=== PATIENT | female | born 1950 | race Caucasian/White ===

== ENCOUNTER 2019-05-04 14:36 | Inpatient (IN) | payer MEDICARE, OTHER ==
[~2019-05-04] VITALS: Ht 167 cm; Wt 127.5 kg
[2019-05-04] VITALS (8 sets, daily range): BP systolic 96–133; BP diastolic 55–108
--- NOTE | 2019-05-04 14:45 | NUR ---
Initial O2 sat via 4L home oxygen 53%. Pt noted to be pale with labored breathing. Pt reports to wear 3L O2 via NC @ all times and 4L via NC upon exertion. Pt denies recent fever or chills.
[2019-05-04] MEDS ORDERED: FUROSEMIDE 40 MG/4 ML INJ (LASIX) IV STA (15:01)
[2019-05-04] MEDS ORDERED: IPRA3AMP31 NEB (15:07)
[2019-05-04] MEDS ORDERED: SENN-233 PO (15:07)
[2019-05-04] MEDS ORDERED: VERA80TA2 PO (15:07)
[2019-05-04] MEDS ORDERED: FURO-124 PO (15:07)
[2019-05-04] MEDS ORDERED: CALC500T64 PO (15:07)
[2019-05-04] MEDS ORDERED: HYDR-3063 PO (15:07)
[2019-05-04] MEDS ORDERED: NYST1POW22 TOP (15:07)
[2019-05-04] MEDS ORDERED: FLUT25PO12 MC (15:07)
[2019-05-04] MEDS ORDERED: ACET325T38 PO (15:07)
[2019-05-04] MEDS ORDERED: ASPI-586 PO (15:07)
[2019-05-04] MEDS ORDERED: UMEC1BLS IH (15:07)
[2019-05-04] MEDS ORDERED: LOPE2CAP PO (15:07)
[2019-05-04 15:13] LABS: BASOPHILS % (AUTO) 0 % (0-10); EOSINOPHILS # (AUTO) 0.1 10^3/uL (0.0-0.3); EOSINOPHILS % (AUTO) 1 % (0-10); HEMATOCRIT 39 % (35-52); HEMOGLOBIN 10.9 G/DL (11.5-16.0); LYMPHOCYTES % (AUTO) 10 % (12-44); MEAN CORPUSCULAR HEMOGLOBIN 28 PG (25-34); MEAN CORPUSCULAR HGB CONC 28 G/DL (32-36); MEAN CORPUSCULAR VOLUME 99 FL (80-99); MEAN PLATELET VOLUME 9.7 FL (7.4-10.4); MONOCYTES # (AUTO) 0.7 X 10^3 (0.0-1.0); MONOCYTES % (AUTO) 7 % (0-12); NEUTROPHILS # (AUTO) 8.1 X 10^3 (1.8-7.8); NEUTROPHILS % (AUTO) 82 % (42-75); PLATELET COUNT 142 10^3/uL (130-400); RED CELL DISTRIBUTION WIDTH 15.8 % (10.0-14.5); WHITE BLOOD COUNT 9.8 10^3/uL (4.3-11.0)
[2019-05-04 15:14] LABS: BILIRUBIN,URINE NEGATIVE (NEGATIVE); CLARITY,URINE CLEAR; COLOR,URINE YELLOW; GLUCOSE, URINE (UA) NEGATIVE (NEGATIVE); KETONES,URINE NEGATIVE (NEGATIVE); LEUKOCYTE ESTERASE ,URINE NEGATIVE (NEGATIVE); NITRITE,URINE NEGATIVE (NEGATIVE); PROTEIN,URINE TRACE (NEGATIVE)
[2019-05-04 15:26] LABS: ALANINE AMINOTRANSFERASE 18 U/L (0-55); ALBUMIN 3.8 GM/DL (3.2-4.5); ALKALINE PHOSPHATASE 73 U/L (40-136); BILIRUBIN,TOTAL 0.4 MG/DL (0.1-1.0); BUN/CREATININE RATIO 29; CALCIUM 8.4 MG/DL (8.5-10.1); CARBON DIOXIDE 38 MMOL/L (21-32); CHLORIDE 98 MMOL/L (98-107); CREATININE SERUM 0.66 MG/DL (0.60-1.30); GFR ESTIMATED > 60; GLUCOSE 126 MG/DL (70-105); MAGNESIUM 1.9 MG/DL (1.6-2.4); POTASSIUM 4.7 MMOL/L (3.6-5.0); SODIUM 143 MMOL/L (135-145)
[2019-05-04 15:38] LABS: BACTERIA,URINE TRACE /HPF; HYALINE CASTS, URINE 0-2 /LPF; RBC,URINE 0-2 /HPF; WBC,URINE 0-2 /HPF
--- NOTE | 2019-05-04 15:56 | ED Respiratory ---
General Chief Complaint: Respiratory Problems Stated Complaint: FLUID BUILD UP IN CHEST Nursing Triage Note: PT PRESENTS TO ED WITH COMPLAINTS OF SOA X 1 WEEK. WORSE RECENTLY. PT ALSO REPORTS SWELLING IN BOTH LEGS. UPON ARRIVAL TO ED PT 02 SAT ON HOME 02 AT 3L IS 53%. Source: patient, family Exam Limitations: no limitations History of Present Illness Date Seen by Provider: May 04, 2019 Time Seen by Provider: 14:52 Initial Comments Here with report of significant shortness of air that has worsened over the last week and certainly worse today. Reports that she's had significant increase in swelling in both legs. Initial O2 sat on arrival was 53% on her 3 L at home. She was dusky and ill-appearing at the time but answering questions. Placed on high flow O2 which helped. She was ultimately revealed to answer questions and states that she's had this problem frequently with last hospitalization over [facility]. She is moved down here with her daughter. Apparently on the last hospitalization, they attempted to do pacemaker and/or defibrillator that the patient wasn't able to tolerate the procedure. Daughter states that she had heart stoppage twice whether or trying to place it so they stopped. Initially the thought was going to be for hospice but she ended up in rehabilitation for a month and did better and then ultimately went to her daughter's house. She's been there for a few days. Denies fevers but has chills. She has had cough for about a week. Timing/Duration: getting worse, changing over time Severity: severe Prior Episodes/Possible Cause: frequent episodes Modifying Factors: Worse With Activity; Improves With Oxygen, Improves With Rest Associated Symptoms: No chest pain/soreness; cough; No nasal congestion; shortness of breath; No sinus infection Allergies and Home Medications Allergies Coded Allergies: bee venom protein (honey bee) (Verified Allergy, Unknown, 05/04/19) Home Medications Calcium Carbonate 500 Mg Tablet, 750 MG PO BID, (Reported) Hydrocodone/Acetaminophen 1 Each Tablet, 1 EACH PO Q4H PRN for PAIN-MODERATE, (Reported) Ipratropium/Albuterol Sulfate 3 Ml Ampul.neb, 3 ML IH Q4H PRN for SHORTNESS OF BREATH, (Reported) Verapamil HCl 80 Mg Tablet, 80 MG PO TID, (Reported) Patient Home Medication List Home Medication List Reviewed: Yes Review of Systems Review of Systems Constitutional: see HPI; No chills, No fever EENTM: no symptoms reported Respiratory: see HPI, dyspnea on exertion, orthopnea, short of breath Cardiovascular: No chest pain; edema Gastrointestinal: No abdominal pain, No nausea, No vomiting Genitourinary: decreased output; No dysuria Musculoskeletal: No back pain, No muscle pain Skin: no symptoms reported Psychiatric/Neurological: Denies Headache; Weakness Hematologic/Lymphatic: No Symptoms Reported All Other Systems Reviewed Negative Unless Noted: Yes Past Qijfuoh-Qgbsfp-Ucxiug Hx Past Med/Social Hx: Reviewed Nursing Past Med/Soc Hx Patient Social History Alcohol Use: Denies Use Recreational Drug Use: No Smoking Status: Former Smoker Former Smoker, Quit: May 31, 2007 Recent Foreign Travel: No Contact w/Someone Who Travel: No Recent Infectious Disease Expo: No Recent Hopitalizations: Yes (hospitalized at [facility]) Seasonal Allergies Seasonal Allergies: No Past Medical History Surgeries: Yes (l/r tkr) Orthopedic Respiratory: Yes COPD Cardiac: Yes (CHF) Atrial Fibrillation, Chronic Edema/Swelling, Hypertension Genitourinary: No Gastrointestinal: Yes Gastroesophageal Reflux, Chronic Constipation, Chronic Diarrhea Endocrine: No Cancer: No Psychosocial: No Integumentary: No Family Medical History Reviewed Nursing Family Hx No Pertinent Family Hx Physical Exam Vital Signs - First Documented 05/04/19 14:48 Temp 37.1 Pulse 95 Resp 16 B/P (MAP) 135/81 (99) Pulse Ox 100 O2 Delivery Non Rebreather O2 Flow Rate 15.00 Capillary Refill : Less Than 3 Seconds Height: '" Weight: lbs. oz. kg; 48.00 BMI Method: General Appearance: WD/WN, no apparent distress, obese HEENT: PERRL/EOMI, pharynx normal Neck: full range of motion, supple Respiratory: no accessory muscle use, decreased breath sounds Cardiovascular: regular rate, rhythm, no murmur Gastrointestinal: non tender, soft Extremities: pedal edema (4+ edema to the level of the upper thighs) Neurologic/Psychiatric: alert, oriented x 3 Skin: normal color, warm/dry Focused Exam Lactate Level 05/04/19 14:50: Lactic Acid Level 0.86 Lactic Acid Level Laboratory Tests Test 05/04/19 14:50 Lactic Acid Level 0.86 MMOL/L (0.50-2.00) Progress/Results/Core Measures Suspected Sepsis Recent Fever Within 48 Hours: No Infection Criteria Present: None New/Unexplained Altered Menta: No Sepsis Screen: No Definite Risk SIRS Temperature: Pulse: 95 Respiratory Rate: 16 Laboratory Tests 05/04/19 14:50: White Blood Count 9.8 Blood Pressure 135 /81 Mean: 99 05/04/19 14:50: Lactic Acid Level 0.86 Laboratory Tests 05/04/19 14:50: Creatinine 0.66, Platelet Count 142, Total Bilirubin 0.4 Results/Orders Lab Results Laboratory Tests Test 05/04/19 14:50 05/04/19 15:03 Range/Units White Blood Count 9.8 4.3-11.0 10^3/uL Red Blood Count 3.93 L 4.35-5.85 10^6/uL Hemoglobin 10.9 L 11.5-16.0 G/DL Hematocrit 39 35-52 % Mean Corpuscular Volume 99 80-99 FL Mean Corpuscular Hemoglobin 28 25-34 PG Mean Corpuscular Hemoglobin Concent 28 L 32-36 G/DL Red Cell Distribution Width 15.8 H 10.0-14.5 % Platelet Count 142 130-400 10^3/uL Mean Platelet Volume 9.7 7.4-10.4 FL Neutrophils (%) (Auto) 82 H 42-75 % Lymphocytes (%) (Auto) 10 L 12-44 % Monocytes (%) (Auto) 7 0-12 % Eosinophils (%) (Auto) 1 0-10 % Basophils (%) (Auto) 0 0-10 % Neutrophils # (Auto) 8.1 H 1.8-7.8 X 10^3 Lymphocytes # (Auto) 1.0 1.0-4.0 X 10^3 Monocytes # (Auto) 0.7 0.0-1.0 X 10^3 Eosinophils # (Auto) 0.1 0.0-0.3 10^3/uL Basophils # (Auto) 0.0 0.0-0.1 10^3/uL Sodium Level 143 135-145 MMOL/L Potassium Level 4.7 3.6-5.0 MMOL/L Chloride Level 98 98-107 MMOL/L Carbon Dioxide Level 38 H 21-32 MMOL/L Anion Gap 7 5-14 MMOL/L Blood Urea Nitrogen 19 H 7-18 MG/DL Creatinine 0.66 0.60-1.30 MG/DL Estimat Glomerular Filtration Rate > 60 BUN/Creatinine Ratio 29 Glucose Level 126 H 70-105 MG/DL Lactic Acid Level 0.86 0.50-2.00 MMOL/L Calcium Level 8.4 L 8.5-10.1 MG/DL Corrected Calcium 8.6 8.5-10.1 MG/DL Magnesium Level 1.9 1.6-2.4 MG/DL Total Bilirubin 0.4 0.1-1.0 MG/DL Aspartate Amino Transf (AST/SGOT) 15 5-34 U/L Alanine Aminotransferase (ALT/SGPT) 18 0-55 U/L Alkaline Phosphatase 73 40-136 U/L Troponin I 0.034 H <0.028 NG/ML B-Type Natriuretic Peptide 574.4 H <100.0 PG/ML Total Protein 6.0 L 6.4-8.2 GM/DL Albumin 3.8 3.2-4.5 GM/DL Urine Color YELLOW Urine Clarity CLEAR Urine pH 7.0 5-9 Urine Specific [place] 1.020 1.016-1.022 Urine Protein TRACE NEGATIVE Urine Glucose (UA) NEGATIVE NEGATIVE Urine Ketones NEGATIVE NEGATIVE Urine Nitrite NEGATIVE NEGATIVE Urine Bilirubin NEGATIVE NEGATIVE Urine Urobilinogen 0.2 < = 1.0 MG/DL Urine Leukocyte Esterase NEGATIVE NEGATIVE Urine RBC (Auto) NEGATIVE NEGATIVE Urine RBC 0-2 /HPF Urine WBC 0-2 /HPF Urine Crystals NONE /LPF Urine Bacteria TRACE /HPF Urine Casts PRESENT /LPF Urine Hyaline Casts 0-2 H /LPF Urine Mucus MODERATE H /LPF Urine Culture Indicated NO My Orders Orders - ARI CAMPBELL MD BNP (05/04/19 14:59) Cbc With Automated Diff (05/04/19 14:59) Comprehensive Metabolic Panel (05/04/19 14:59) Lactic Acid Analyzer (05/04/19 14:59) Magnesium (05/04/19 14:59) Ua Culture If Indicated (05/04/19 14:59) Blood Culture (05/04/19 14:59) Troponin I (05/04/19 14:59) Chest 1 View, Ap/Pa Only (05/04/19 14:59) Ekg Tracing (05/04/19 14:59) Catheter(Urinary) Insert & Ass 03,15 (05/04/19 14:59) O2 (05/04/19 14:59) Monitor-Rhythm Ecg Trace Only (05/04/19 14:59) Furosemide Injection (Lasix Injection) (05/04/19 15:01) Vital Signs/I&O 05/04/19 05/04/19 05/04/19 14:48 14:50 14:58 Temp 37.1 Pulse 95 Resp 16 B/P (MAP) 135/81 (99) Pulse Ox 100 95 100 O2 Delivery Non Rebreather Nasal Cannula Non Rebreather O2 Flow Rate 15.00 5.00 15.00 Capillary Refill : Less Than 3 Seconds Blood Pressure Mean: 99 POS Progress Note : Progress Note Seen and evaluated. IV, labs, UA, EKG and chest x-ray ordered. Lasix 40 mg IV. Nova catheter inserted as the patient is unable to get up without significant respiratory distress. Initiated on high flow O2 initially and then was able to decrease that to 5 L via nasal cannula as long as the patient wasn't talking much. O2 saturations in the mid to low 90s. Blood cultures and lactic acid ordered. Monitor patient. 1555: Doing better over all. 1620: I discussed the case with Dr. Love and have consulted Dr. Maldonado. Dr. Love accepts patient for admission, inpatient status. Dr. Maldonado will see in consult. I have ordered records were questionable with the [facility]. We will continue Lasix twice a day. Due to patient's history of progressive and worsening heart failure and previous conversations regarding hospice, palliative care consult will be placed regarding goals of care. This was discussed with Dr. Love who agrees. Patient family and agreement with plan. Family and patient now reports that she is supposed to be on BiPAP at night at 18/8 with a respiratory rate of 14 but they have been unable to get the machine through the home health from [facility]. Dr. Lobo has apparently been in contact with them as well and has refaxed paperwork. We will go ahead and add order for BiPAP at settings at nighttime and while sleeping and I think this will help her significantly as well. Family appreciative. ECG Initial ECG Impression Date: May 04, 2019 Initial ECG Impression Time: 14:51 Initial ECG Rate: 79 Comment Ectopic atrial rhythm. No evidence of ST elevation VT. Normal axis. No previous available for comparison. Interpreted by me. Departure Impression Primary Impression: Acute heart failure Qualified Codes: I50.9 - Heart failure, unspecified Additional Impression: Volume overload Qualified Codes: E87.70 - Fluid overload, unspecified Disposition: 09 ADMITTED INPATIENT Condition: Stable Admissions Decision to Admit Reason: Admit from ER (General) Decision to Admit/Date: May 04, 2019 Time/Decision to Admit Time: 15:55 ARI CAMPBELL MD May 04, 2019 15:56 POS
--- NOTE | 2019-05-04 15:57 | Diagnostic Imaging Report ---
INDICATION: Dyspnea. Upright portable AP view of the chest is obtained. There is no previous study for comparison. There is generalized cardiomegaly and pulmonary venous congestion. There is air trapping in the upper lobes. Prominent interstitial markings are seen in the lung bases with blunting of the costophrenic sulci. IMPRESSION: Without previous study for comparison, findings are suggestive of background COPD with superimposed congestive heart failure. Clinical correlation and short-term radiographic followup would be useful. Dictated by: Dictated on workstation # [id number]
--- NOTE | 2019-05-04 17:15 | NUR ---
REC'D PER CART FROM ER. ALERT AND ORIENTED, DUSKY. O2 ON @ 5L N/C AND SATS 78-83%. ENCOURAGED TO DEEP BREATHE AND SATS 90-91%. DR. DAS AT BEDSIDE. ORDERS REC'D TO TRANSER TO ICU. AWAITING BED. RELEASE SIGNED FOR RELEASE OF MEDICAL RECORDS.
--- NOTE | 2019-05-04 17:44 | Consultation-Cardiology ---
HPI-Cardiology Cardiology Consultation Date of Consultation 05/04/19 Date of Admission Time Seen by Provider: 17:38 Indication: Shortness of breath HPI 68-year-old lady with history of congestive heart failure, has a vague history that during her hospitalization in [facility] she was scheduled for pacemaker/ICD implant and the procedure was canceled due to her becoming unstable with sedation, no attempt for the procedure was made. She was discharged home, was doing well, improving slowly, started to have increasing shortness of breath and pedal edema and weakness. No palpitation. No syncope or near syncopal episodes. No claudications. Has underlying COPD Home Medications & Allergies Allergies: Coded Allergies: bee venom protein (honey bee) (Verified Allergy, Unknown, 05/04/19) Home Medication List Reviewed: Yes FAZ-Rprrvr-Jofxzx Hx Patient Social History Alcohol Use: Denies Use Recreational Drug Use: No Smoking Status: Former Smoker Recent Foreign Travel: No Recent Infectious Disease Expo: No Recent Hopitalizations: Yes (hospitalized at [facility]) Past Medical History Discussed below Family Medical History Significant Family History: No Pertinent Family Hx Family Medical Hx Noncontributory Review of Systems-General Review of Systems Constitutional: see HPI; No chills, No fever EENTM: no symptoms reported Respiratory: see HPI, dyspnea on exertion, orthopnea, short of breath Cardiovascular: No chest pain; edema Gastrointestinal: No abdominal pain, No nausea, No vomiting Genitourinary: see HPI, decreased output; No dysuria Musculoskeletal: see HPI; No back pain, No muscle pain Skin: no symptoms reported, see HPI Psychiatric/Neurological: See HPI; Denies Headache; Weakness All Other Systems Reviewed Negative Unless Noted: Yes Reviewed Test Results Reviewed Test Results Lab Laboratory Tests Test 05/04/19 14:50 05/04/19 15:03 Range/Units White Blood Count 9.8 4.3-11.0 10^3/uL Red Blood Count 3.93 L 4.35-5.85 10^6/uL Hemoglobin 10.9 L 11.5-16.0 G/DL Hematocrit 39 35-52 % Mean Corpuscular Volume 99 80-99 FL Mean Corpuscular Hemoglobin 28 25-34 PG Mean Corpuscular Hemoglobin Concent 28 L 32-36 G/DL Red Cell Distribution Width 15.8 H 10.0-14.5 % Platelet Count 142 130-400 10^3/uL Mean Platelet Volume 9.7 7.4-10.4 FL Neutrophils (%) (Auto) 82 H 42-75 % Lymphocytes (%) (Auto) 10 L 12-44 % Monocytes (%) (Auto) 7 0-12 % Eosinophils (%) (Auto) 1 0-10 % Basophils (%) (Auto) 0 0-10 % Neutrophils # (Auto) 8.1 H 1.8-7.8 X 10^3 Lymphocytes # (Auto) 1.0 1.0-4.0 X 10^3 Monocytes # (Auto) 0.7 0.0-1.0 X 10^3 Eosinophils # (Auto) 0.1 0.0-0.3 10^3/uL Basophils # (Auto) 0.0 0.0-0.1 10^3/uL Sodium Level 143 135-145 MMOL/L Potassium Level 4.7 3.6-5.0 MMOL/L Chloride Level 98 98-107 MMOL/L Carbon Dioxide Level 38 H 21-32 MMOL/L Anion Gap 7 5-14 MMOL/L Blood Urea Nitrogen 19 H 7-18 MG/DL Creatinine 0.66 0.60-1.30 MG/DL Estimat Glomerular Filtration Rate > 60 BUN/Creatinine Ratio 29 Glucose Level 126 H 70-105 MG/DL Lactic Acid Level 0.86 0.50-2.00 MMOL/L Calcium Level 8.4 L 8.5-10.1 MG/DL Corrected Calcium 8.6 8.5-10.1 MG/DL Magnesium Level 1.9 1.6-2.4 MG/DL Total Bilirubin 0.4 0.1-1.0 MG/DL Aspartate Amino Transf (AST/SGOT) 15 5-34 U/L Alanine Aminotransferase (ALT/SGPT) 18 0-55 U/L Alkaline Phosphatase 73 40-136 U/L Troponin I 0.034 H <0.028 NG/ML B-Type Natriuretic Peptide 574.4 H <100.0 PG/ML Total Protein 6.0 L 6.4-8.2 GM/DL Albumin 3.8 3.2-4.5 GM/DL Urine Color YELLOW Urine Clarity CLEAR Urine pH 7.0 5-9 Urine Specific [place] 1.020 1.016-1.022 Urine Protein TRACE NEGATIVE Urine Glucose (UA) NEGATIVE NEGATIVE Urine Ketones NEGATIVE NEGATIVE Urine Nitrite NEGATIVE NEGATIVE Urine Bilirubin NEGATIVE NEGATIVE Urine Urobilinogen 0.2 < = 1.0 MG/DL Urine Leukocyte Esterase NEGATIVE NEGATIVE Urine RBC (Auto) NEGATIVE NEGATIVE Urine RBC 0-2 /HPF Urine WBC 0-2 /HPF Urine Crystals NONE /LPF Urine Bacteria TRACE /HPF Urine Casts PRESENT /LPF Urine Hyaline Casts 0-2 H /LPF Urine Mucus MODERATE H /LPF Urine Culture Indicated NO Physical Exam Physical Exam Vital Signs Vital Signs - First Documented 05/04/19 14:48 Temp 37.1 Pulse 95 Resp 16 B/P (MAP) 135/81 (99) Pulse Ox 100 O2 Delivery Non Rebreather O2 Flow Rate 15.00 Capillary Refill : Less Than 3 Seconds Height, Weight, BMI Height: '" Weight: lbs. oz. kg; 48.00 BMI Method: General Appearance: No Apparent Distress, WD/WN, Mild Distress Eyes: Bilateral Eye Normal Inspection, Bilateral Eye PERRL, Bilateral Eye EOMI HEENT: PERRL/EOMI, TMs Normal, Normal ENT Inspection, Pharynx Normal, Moist Mucous Membranes Neck: Full Range of Motion, Normal Inspection, Non Tender, Supple, Carotid Bruit Respiratory: Chest Non Tender, Normal Breath Sounds, No Accessory Muscle Use, No Respiratory Distress Cardiovascular: No JVD, Normal Peripheral Pulses, Systolic Murmur, Gallop/S3 Gastrointestinal: Normal Bowel Sounds, No Organomegaly, No Pulsatile Mass, Non Tender, Soft Back: Normal Inspection, No CVA Tenderness, No Vertebral Tenderness Extremity: Normal Capillary Refill, Normal Inspection, Normal Range of Motion, Non Tender, No Calf Tenderness, Pedal Edema Neurologic/Psychiatric: Alert, Oriented x3, No Motor/Sensory Deficits, Normal Mood/Affect Skin: Normal Color, Warm/Dry Lymphatic: No Adenopathy A/P-Cardiology Admission Diagnosis Congestive heart failure Coronary artery disease Hypertension Hyperlipidemia Assessment/Plan Congestive heart failure, acute on chronic left ventricular systolic dysfunction, unknown etiology, had extensive workup done at [facility] last month including possible ICD attempt, reported that procedure was canceled due to patient becoming very unstable. Does not recall having a heart catheterization or a stress test. I am planning to obtain copy of her record. I will evaluate 2-D echo, start aggressive diuresis and monitor tolerance and response Shortness of breath, pulmonary edema, starting MAT protocol and diuretics and monitor tolerance and response Type II myocardial infarction, probably secondary to heart failure, mild elevation in troponin, continue to monitor trend, started on aspirin and Lovenox. I'll try to obtain copy of the records from [facility] Worsening pedal edema, generalized weakness, started on diuretics. Started low- dose Coreg and monitor COPD, oxygen dependent. Monitor Hypertension, monitor blood pressure next Hyperlipidemia, restart home medication next Morbid obesity LINDY GROVER MD May 04, 2019 17:44 POS
[2019-05-04] MEDS ORDERED: CATHETER FLUSH 10 ML SYR IV PRN (17:45)
[2019-05-04] MEDS ORDERED: ENOXAPARIN 100 MG/1 ML (LOVENOX) SYR SC SCH (17:45)
--- NOTE | 2019-05-04 18:20 | NUR ---
TO ICU PER BED WITH RT. DAUGHTER HAS GONE HOME, BUT IS AWARE OF PLANS TO TRANSFER. O2 @ 10L HI RUSTAM N/C. NO SIGNS OF RESP DISTRESS. REPORT TO JOMAR KWOK.
[2019-05-04 18:29] LABS: ABG BASE EXCESS 17.8 MMOL/L (-2.5-2.5); ABG OXYGEN SATURATION 98 % (94-100); ABG PO2 99 MMHG (79-93); ABG TCO2 47.6 MMOL/L (21.0-31.0)
[2019-05-04 18:31] LABS: ABG PCO2 89 MMHG (35-45); ABG PH 7.32 (7.37-7.43); ALLENS TEST POSITIVE; INSPIRED O2 9 L; PATIENT TEMP 36.5; VENTILATOR NO
[2019-05-04] MEDS ORDERED: RT-ALBUTEROL/IPRATROPIUM 3 ML (DUONEB) VIAL INH PRN (19:30)
[2019-05-04] MEDS: RT-ALBUTEROL/IPRATROPIUM 3 ML (DUONEB) VIAL INH SCH (21:24)
[2019-05-04] MEDS: ENOXAPARIN 300 MG/3 ML (LOVENOX) MULTI-DOSE VIAL SQ SCH (21:24)
[2019-05-04] MEDS: CARVEDILOL 3.125 MG (COREG) TABLET PO SCH (21:24)
--- NOTE | 2019-05-04 21:34 | History & Physical-Hospitalist ---
History of Present Illness HPI/Chief Complaint Chief complaint: Shortness of breath with clinical decline requiring ICU transfer History of present illness: This is a 68-year-old white female who has a history of a recent hospital stay in [place] with preparation of placing a defibrillator but could not accomplish that due to instability and questionable discharge that was recommended on hospice but patient regardless presented to the ER with shortness of breath found to have florid congestive heart failure and work-up included cardiology management but when I saw her at the bedside she appeared to be abreu ashen and pale becoming hypoxic and patient required ICU transfer just based on clinical status decompensation. Patient was found to have respiratory acidosis with hypercapnia requiring BiPAP and may ultimately require intubation. Patient appears to be extremely chronically ill and unsure of her ejection fraction but it appears to be very low with a very very poor prognosis. Source: patient Exam Limitations: clinical condition Date Seen 05/04/19 Time Seen by a Provider: 17:30 Attending Physician Alberto Lobo MD PCP Alberto Lobo MD Referring Physician Date of Admission May 04, 2019 at 16:08 Home Medications & Allergies Home Medications Reviewed patient Home Medication Reconciliation performed by pharmacy medication reconciliations satellite installation technician and/or nursing. Patients Allergies have been reviewed. Allergies Allergies Coded Allergies bee venom protein (honey bee) (Verified Allergy, Unknown, 05/04/19) Past Gicvkvn-Huzcdq-Zshwor Hx Past Med/Social Hx: Reviewed Nursing Past Med/Soc Hx, Reviewed and Corrections made Patient Social History Alcohol Use: Denies Use Recreational Drug Use: No Smoking Status: Former Smoker Former Smoker, Quit: May 31, 2007 Recent Foreign Travel: No Contact w/other who traveled: No Recent Hopitalizations: Yes (hospitalized at [facility]) Recent Infectious Disease Expo: No Immunizations Up To Date Date of Influenza Vaccine: Feb 27, 2019 Seasonal Allergies Seasonal Allergies: No Past Medical History Surgeries: Orthopedic Cardiac: Atrial Fibrillation, Chronic Edema/Swelling, Hypertension Gastrointestinal: Gastroesophageal Reflux, Chronic Constipation, Chronic Diarrhea Family History Reviewed Nursing Family Hx No Pertinent Family Hx Review of Systems Constitutional: see HPI Respiratory: dyspnea on exertion, short of breath Physical Exam Physical Exam Vital Signs Vital Signs - First Documented 05/04/19 14:48 Temp 37.1 Pulse 95 Resp 16 B/P (MAP) 135/81 (99) Pulse Ox 100 O2 Delivery Non Rebreather O2 Flow Rate 15.00 Capillary Refill : Less Than 3 Seconds Height, Weight, BMI Height: '" Weight: lbs. oz. kg; 48.00 BMI Method: General Appearance: Anxious, Chronically ill, Moderate Distress, Obese, Other (abreu, ashen, in distress) Respiratory: Crackles, Decreased Breath Sounds Cardiovascular: Tachycardia Extremity: Pedal Edema Neurologic/Psychiatric: Alert, Disoriented Results Results/Procedures Labs Laboratory Tests 05/04/19 14:50 Patient resulted labs reviewed. Assessment/Plan Admission Diagnosis Assessment: Respiratory failure Respiratory acidosis Hypercapnia CHF acute on chronic Edema/anasarca Plan: Transfer to ICU Need intubation or biPAP trial Prognosis poor Admission Status: Inpatient Order (span 2 midnights) Reason for Inpatient Admission: AECHF with ICU transfer Diagnosis/Problems Diagnosis/Problems (1) Respiratory failure (2) Hypercapnia (3) CO2 narcosis (4) Respiratory acidosis (5) Acute heart failure Status: Acute Qualifiers: Heart failure type: unspecified Qualified Codes: I50.9 - Heart failure, unspecified (6) Volume overload Status: Acute Qualifiers: Hypervolemia type: unspecified Qualified Codes: E87.70 - Fluid overload, unspecified Clinical Quality Measures DVT/VTE Risk/Contraindication: Risk Factor Score Per Nursin RFS Level Per Nursing on Admit: 4+=Very High YANET DAS DO May 04, 2019 21:34 POS
--- NOTE | 2019-05-04 23:32 | NUR ---
PATIENT HAS TAKEN OFF BIPAP MASK STATING "I AM NOT WEARING THAT THING". INFORMED PATIENT SHE NEEDED IT AND SHE STATED SHE DIDN'T CARE, EICU NOTIFIED AND SHERRI RN CAMERAD INTO ROOM. PATIENT AGREED TO PRECEDEX AND TO KEEP THE MASK ON AFTER EXPLAINING THE BENEFITS. WILL CONTINUE TO MONITOR.
[2019-05-04] MEDS ORDERED: NS (IVPB) 50 ML ONE (23:34)
[2019-05-05] VITALS (21 sets, daily range): BP systolic 77–145; BP diastolic 48–108
[2019-05-05] MEDS: DEXMEDETOMIDINE INJECTION 200 MCG in NS (IVPB) 50 ML IV SCH ×2 (00:13→22:18)
[2019-05-05] MEDS: CATHETER FLUSH 10 ML SYR IV SCH ×4 (00:13→22:16)
[2019-05-05] MEDS: RT-ALBUTEROL/IPRATROPIUM 3 ML (DUONEB) VIAL INH SCH ×6 (01:45→21:22)
[2019-05-05 03:13] LABS: ABG BASE EXCESS 17.4 MMOL/L (-2.5-2.5); ABG OXYGEN SATURATION 98 % (94-100); ABG PO2 92 MMHG (79-93); ABG TCO2 47.5 MMOL/L (21.0-31.0)
--- NOTE | 2019-05-05 03:29 | Pulmonary Consultation ---
History of Present Illness History of Present Illness Date Seen by Provider: May 05, 2019 Time Seen by Provider: 03:23 Date of Admission Reason for Visit: Shortness of breath History of Present Illness 68yo with hx of morbid obesity, COPD presented to ED secondary to worsening SOB, hypoxia. Pt had a recent hospitalization in [place]. Hospice care and ICD placement was discussed at that time per hospital notes. Pt is currently a full code. Pt is currently lethargic she is on precedex gtt secondary to her not tolerating BiPAP therapy. She is currently on BiPAP with precedex gtt. All information obtained from chart. Allergies and Home Medications Allergies Coded Allergies: bee venom protein (honey bee) (Verified Allergy, Unknown, 05/04/19) Home Medications Calcium Carbonate 500 Mg Tablet, 750 MG PO BID, (Reported) Hydrocodone/Acetaminophen 1 Each Tablet, 1 EACH PO Q4H PRN for PAIN-MODERATE, (Reported) Ipratropium/Albuterol Sulfate 3 Ml Ampul.neb, 3 ML IH Q4H PRN for SHORTNESS OF BREATH, (Reported) Verapamil HCl 80 Mg Tablet, 80 MG PO TID, (Reported) Past Dgoqmeq-Iqsnti-Kzmxng Hx Past Med/Social Hx: Reviewed Nursing Past Med/Soc Hx, Reviewed and Corrections made Patient Social History Alcohol Use: Denies Use Recreational Drug Use: No Smoking Status: Former Smoker Former Smoker, Quit: May 31, 2007 Recent Foreign Travel: No Contact w/Someone Who Travel: No Recent Infectious Disease Expo: No Recent Hopitalizations: Yes (hospitalized at [facility]) Immunizations Up To Date Date of Influenza Vaccine: Feb 27, 2019 Seasonal Allergies Seasonal Allergies: No Past Medical History Surgeries: Yes (l/r tkr) Orthopedic Respiratory: Yes COPD Cardiac: Yes (CHF) Atrial Fibrillation, Chronic Edema/Swelling, Hypertension Genitourinary: No Gastrointestinal: Yes Gastroesophageal Reflux, Chronic Constipation, Chronic Diarrhea Endocrine: No Cancer: No Psychosocial: No Integumentary: No Family Medical History Reviewed Nursing Family Hx No Pertinent Family Hx Review of Systems Time Seen by Provider: 03:55 Sepsis Event Evaluation Height, Weight, BMI Height: '" Weight: lbs. oz. kg; 48.00 BMI Method: Exam Exam Vital Signs Date Time Temp Pulse Resp B/P (MAP) Pulse Ox O2 Delivery O2 Flow Rate FiO2 05/05/19 01:46 62 16 98 60.00 05/05/19 01:00 81 22 97/60 (72) 98 NIV Bilevel 60.00 05/05/19 00:47 70 05/05/19 00:00 80 42 109/70 (83) 97 NIV Bilevel 60.00 05/04/19 23:00 76 19 107/69 (82) 95 NIV Bilevel 60.00 05/04/19 22:00 70 14 101/57 (72) 97 NIV Bilevel 60.00 05/04/19 21:24 78 18 99 60.00 05/04/19 21:00 81 31 118/67 (84) 97 NIV Bilevel 60.00 05/04/19 20:00 82 26 96/55 (69) 99 NIV Bilevel 60.00 05/04/19 20:00 36.2 05/04/19 19:40 78 99 60.00 05/04/19 19:37 NIV Bilevel 60.00 05/04/19 19:19 72 98 05/04/19 19:00 100 38 127/68 (87) 97 High Flow N/C 9.00 05/04/19 18:33 90 05/04/19 18:21 36.5 66 27 133/85 (101) 96 High Flow N/C 9.00 05/04/19 17:17 37.1 86 18 134/72 (99) 94 Nasal Cannula 5.00 05/04/19 14:58 100 Non Rebreather 15.00 05/04/19 14:50 95 Nasal Cannula 5.00 05/04/19 14:48 37.1 95 16 135/81 (99) 100 Non Rebreather 15.00 Height & Weight Height: '" Weight: lbs. oz. kg; 48.00 BMI Method: General Appearance: Anxious, Chronically ill, Moderate Distress, Obese, Other (abreu, ashen, in distress) HEENT: PERRL/EOMI, TMs Normal, Normal ENT Inspection, Pharynx Normal, Moist Mucous Membranes Neck: Full Range of Motion, Normal Inspection, Non Tender, Supple, Carotid Bruit Respiratory: Crackles, Decreased Breath Sounds Cardiovascular: Tachycardia Capillary Refill: Less Than 3 Seconds Gastrointestinal: non tender, soft Extremity: Pedal Edema Neurologic/Psychiatric: Alert, Disoriented Skin: Normal Color, Warm/Dry Lymphatic: No Adenopathy Results Lab Laboratory Tests 05/04/19 14:50 Assessment/Plan Assessment/Plan Acute on chronic respiratory failure -Noninvasive ventilation -C02 on ABG is 90 -Increase RR on BiPAP -Decrease preceded -Decrease Fi02 and repeat ABG in 1 hr. Pt may need intubation will reevaluate after next ABG in 1hr. -Start solumedrol Pulmonary edema and bilateral pleural effusions COPDAE -Start solumedrol -SVNs with duoneb Q 4 and add pulmicort BID CHFAE -Lasix -Echo pending -Cardiology following Hypotension - mild -Monitor Obesity OHS -Will benefit from home vent to mask Anemia -Monitor -Check occult stool PANKAJ VALENTINE DO May 05, 2019 03:29 POS
[2019-05-05 03:30] LABS: BASOPHILS % (AUTO) 0 % (0-10); EOSINOPHILS # (AUTO) 0.2 10^3/uL (0.0-0.3); EOSINOPHILS % (AUTO) 2 % (0-10); HEMATOCRIT 36 % (35-52); HEMOGLOBIN 9.9 G/DL (11.5-16.0); LYMPHOCYTES % (AUTO) 16 % (12-44); MEAN CORPUSCULAR HEMOGLOBIN 28 PG (25-34); MEAN CORPUSCULAR HGB CONC 27 G/DL (32-36); MEAN CORPUSCULAR VOLUME 100 FL (80-99); MEAN PLATELET VOLUME 10.2 FL (7.4-10.4); MONOCYTES # (AUTO) 0.6 X 10^3 (0.0-1.0); MONOCYTES % (AUTO) 8 % (0-12); NEUTROPHILS # (AUTO) 4.9 X 10^3 (1.8-7.8); NEUTROPHILS % (AUTO) 74 % (42-75); PLATELET COUNT 129 10^3/uL (130-400); RED CELL DISTRIBUTION WIDTH 15.9 % (10.0-14.5); WHITE BLOOD COUNT 6.7 10^3/uL (4.3-11.0)
[2019-05-05 03:35] LABS: ALLENS TEST POSITIVE; INSPIRED O2 60; PATIENT TEMP 35.8; VENTILATOR NO
[2019-05-05 03:36] LABS: ABG PCO2 90 MMHG (35-45); ABG PH 7.31 (7.37-7.43)
[2019-05-05 03:48] LABS: ALANINE AMINOTRANSFERASE 11 U/L (0-55); ALBUMIN 3.3 GM/DL (3.2-4.5); ALKALINE PHOSPHATASE 72 U/L (40-136); BILIRUBIN,TOTAL 0.4 MG/DL (0.1-1.0); BUN/CREATININE RATIO 29; CARBON DIOXIDE 38 MMOL/L (21-32); CHLORIDE 97 MMOL/L (98-107); CHOLESTEROL 110 MG/DL (< 200); CREATININE SERUM 0.65 MG/DL (0.60-1.30); GFR ESTIMATED > 60; GLUCOSE 109 MG/DL (70-105); HDL CHOLESTEROL 55 MG/DL (40-60); MAGNESIUM 1.9 MG/DL (1.6-2.4); PHOSPHORUS 4.9 MG/DL (2.3-4.7); POTASSIUM 4.4 MMOL/L (3.6-5.0); SODIUM 145 MMOL/L (135-145); TOTAL PROTEIN 5.1 GM/DL (6.4-8.2); TRIGLYCERIDES 58 MG/DL (<150); VLDL CHOLESTEROL 12 MG/DL (5-40)
--- NOTE | 2019-05-05 04:15 | NUR ---
PATIENT'S DAUGHTER HAYLIE NOTIFIED OF PATIENT CONDITION - LOW BLOOD PRESSURE, USE OF SEDATION TO KEEP BIPAP ON WELL LAB VALUES. HAYLIE REQUESTS THAT SEDATION BE TAKEN OFF PATIENT AND DISCUSS OPTIONS OF CODE STATUS, HAYLIE IS RELUCTANT TO MAKE DECISION AT THIS TIME.
[2019-05-05] MEDS ORDERED: FUROSEMIDE 40 MG/4 ML INJ (LASIX) IVP SCH ×2 (05:00→07:00)
--- NOTE | 2019-05-05 05:00 | NUR ---
PATIENT AWAKE AND REQUESTING BIPAP BE REMOVED. DISCUSSION OF CODE STATUS AND PATIENT REQUEST FULL CODE AND IS AGREEABLE TO INTUBATION IF NECESSARY. VAPOTHERM PLACED AT THIS TIME. WILL CONTINUE TO MONITOR.
[2019-05-05 05:09] LABS: ABG BASE EXCESS 17.6 MMOL/L (-2.5-2.5); ABG OXYGEN SATURATION 97 % (94-100); ABG PCO2 68 MMHG (35-45); ABG PH 7.41 (7.37-7.43); ABG PO2 71 MMHG (79-93); ABG TCO2 45.9 MMOL/L (21.0-31.0)
[2019-05-05 05:11] LABS: ALLENS TEST POSITIVE; INSPIRED O2 60%; PATIENT TEMP 35.3; VENTILATOR NO
[2019-05-05] MEDS ORDERED: RT-BUDESONIDE NEBS 0.5 MG/2ML (PULMICORT) AMP ONE (06:21)
[2019-05-05] MEDS: RT-BUDESONIDE NEBS 0.5 MG/2ML (PULMICORT) AMP INH SCH ×2 (06:56→19:07)
[2019-05-05] MEDS: POTASSIUM CL 10MEQ/50ML IVPB 50 ML IV SCH (07:28)
[2019-05-05] MEDS: KCL 20 MEQ TAB (K-DUR) PO SCH (07:28)
[2019-05-05] MEDS: MAGNESIUM 1 GM/100 ML IVPB 100 ML IV SCH (07:28)
[2019-05-05] MEDS: methylPREDNISolone 40 MG/ML (Solu-MEDROL) VIAL IV SCH ×4 (07:48→23:36)
[2019-05-05] MEDS: ENOXAPARIN 300 MG/3 ML (LOVENOX) MULTI-DOSE VIAL SQ SCH ×2 (07:48→18:02)
--- NOTE | 2019-05-05 08:12 | Diagnostic Imaging Report ---
Portable erect AP chest at 3:27. Indication: Respiratory distress. The cardiomegaly noted on the prior exam of 05/04/2019 is again evident although the heart does not seem quite as enlarged as on the prior study. The central pulmonary vasculature is also less prominent than on the previous exam. There still appears to be some atelectasis/infiltrate and perhaps fluid in the lung bases however. The mediastinum is not widened. The osseous structures are intact. Impression: The appearance of the chest has improved somewhat as the heart has decreased in size and there is less pulmonary congestion. There are still involvement of both lung bases by atelectasis/infiltrate and perhaps fluid however. A followup study would be recommended for continued evaluation. Dictated by: Dictated on workstation # [id number]
[2019-05-05] MEDS: ASPIRIN E.C. 81 MG (ECOTRIN) TAB PO SCH (08:42)
[2019-05-05] MEDS: PANTOPRAZOLE 40 MG (PROTONIX) TAB PO SCH (08:42)
[2019-05-05] MEDS ORDERED: HYDR-3816 PO (09:40)
[2019-05-05] MEDS ORDERED: CALC-870 PO (09:40)
[2019-05-05] MEDS ORDERED: ATOR10TA66 PO (09:40)
[2019-05-05] MEDS ORDERED: FLUT16SP22 NS (09:40)
--- NOTE | 2019-05-05 09:41 | Cardiology Progress Note ---
Subjective Date Seen by Provider: May 05, 2019 Time Seen by Provider: 09:38 Subjective/Events-last exam patient is laying down in bed, on Vapotherm, denied any chest pain. Review of Systems General: No Chills, No Night Sweats; Fatigue, Malaise; No Appetite, No Other HEENT: No Head Aches, No Visual Changes, No Eye Pain, No Ear Pain, No Dysphasia, No Sinus Congestion, No Post Nasal Drip, No Sore Throat, No Other Pulmonary: Dyspnea; No Cough, No Pleuritic Chest Pain, No Other Cardiovascular: Edema; No: Chest Pain, Palpitations, Orthopnea, Paroxysmal Noc. Dyspnea, Lt Headedness, Other Focused Exam Lactate Level 05/04/19 14:50: Lactic Acid Level 0.86 Objective-Cardiology Exam Last Set of Vital Signs Vital Signs 05/05/19 05/05/19 05/05/19 05/05/19 04:19 06:52 07:01 09:00 Temp 35.8 Pulse 85 Resp 22 B/P (MAP) 111/67 (82) Pulse Ox 91 O2 Delivery Vapotherm O2 Flow Rate 35.00 40.00 FiO2 40 Capillary Refill : Less Than 3 Seconds I&O Intake and Output 05/05/19 00:00 Intake Total 275 ml Output Total 300 ml Balance -25 ml Intake Oral 275 ml Output Urine Total 300 ml Daily Weight Change No General: Alert, Oriented X3, Cooperative HEENT: Atraumatic, PERRLA Neck: Supple, No JVD, No Thyromegaly Lungs: Normal Air Movement, Other (bilateral rhonchi) Heart: Regular Rate, Normal S1, Normal S2, No Murmurs Abdomen: Normal Bowel Sounds, Soft, No Tenderness, No Hepatosplenomegaly, No Masses Extremities: No Clubbing, No Cyanosis, Normal Pulses, No Tenderness/Swelling, Other (peripheral edema) Skin: No Significant Lesion, Other (erythema) Neuro: Normal Speech, Strength at 5/5 X4 Ext, Normal Tone, Sensation Intact Psych/Mental Status: Mental Status NL, Mood NL Results Lab Laboratory Tests 05/04/19 14:50 05/05/19 03:00 A/P-Cardiology Admission Diagnosis Congestive heart failure Coronary artery disease Hypertension Hyperlipidemia Assessment/Plan Congestive heart failure, acute on chronic left ventricular diastolic dysfunction, unknown etiology, had extensive workup done at [facility] last month including possible ICD attempt, reported that procedure was canceled due to patient becoming very unstable. Does not recall having a heart catheterization or a stress test. echocardiogram showed normal LV size and function, ejection fraction 60 percent. Continue to monitor Acute respiratory insufficiency, shortness of breath, pulmonary edema, responding well to diuretics, on Vapotherm COPD, acute exacerbation, on Vapotherm at this timeby Dr. Hull Type II myocardial infarction, probably secondary to heart failure, mild elevation in troponin, continue to monitor trend, started on aspirin and Lovenox. I'll try to obtain copy of the records from [facility] Peripheral edema, improving slowly Hypertension, monitor blood pressure next Hyperlipidemia, restart home medication next Morbid obesity Clinical Quality Measures DVT/VTE Risk/Contraindication: Risk Factor Score Per Nursin RFS Level Per Nursing on Admit: 4+=Very High LINDY GROVER MD May 05, 2019 09:41 POS
--- NOTE | 2019-05-05 09:59 | NUR ---
PATIENTS DAUGHTER HAS A LIST OF MEDICATIONS WITH HER. SHE STATES THIS IS UP TO DATE. THE PATIENT HAS RECENTLY RELOCATED TO [facility] AND IS NOW USING [facility]. PRIOR TO THIS THEY USES [facility] IN [place]. [facility] FILLED: 04-21-19 ANORO INHALER DAILY (PATIENT USES AT ) 04-21-19 HYDROCODONE 7.5-325MG 1 Q6H PRN 04-21-19 ATORVASTATIN 10MG DAILY #90 04-21-19 DUONEB Q6H PRN 04-21-19 PREDNISONE TAPER (SHOULD BE FINISHED) [facility] FILLED: 03-20-19 FUROSEMIDE 40MG BID #30 (WOULD BE PAST DUE BUT PATIENT HAS BEEN IN HOSPITAL) 03-09-19 HYDROCODONE 7.5-325MG #180 Q4HPRN (FILLED MORE RECENTLY AT [facility] Q6H) 03-06-19 HCTZ 12.5MG DAILY #30 (NOT ON CURRENT MED LIST PATIENT HAS NOW) PATIENT LIST ALSO HAD NYSTATIN POWDER NEEDED AND VERAPAMIL TID. DAUGHTER STATES THE VERAPAMIL IS HELD WHEN BLOOD PRESSURE IS BELOW 110, NORMALLY THE PATIENT TAKES 1 IN THE MORNING AND DOES NOT NEED TO REPEAT THE OTHER 2 DOSES. OTC MEDS: TYLENOL 325MG PRN ASPIRIN 81MG DAILY TUMS BID IMODIUM PRN SENNA S PRN FLONASE DAILY
[2019-05-05] MEDS: CARVEDILOL 3.125 MG (COREG) TABLET PO SCH ×2 (10:58→20:05)
--- NOTE | 2019-05-05 11:15 | NUR ---
Pastoral care visit.
[2019-05-05] MEDS: inSUlin ASPART (NovoLOG) 1 UNIT/0.01 ML (CHARGE PER UNIT) SQ SCH ×3 (11:50→20:07)
--- NOTE | 2019-05-05 14:23 | Progress Note - Hospitalist ---
[facility] 05/05/19 1423: Subjective HPI/CC On Admission Date Seen by Provider: May 05, 2019 Time Seen by Provider: 08:30 Chief complaint: Shortness of breath with clinical decline requiring ICU enid osorio History of present illness: This is a 68-year-old white female who has a history of a recent hospital stay in [place] with preparation of placing a defibrillator but could not accomplish that due to instability and questionable discharge that was recommended on hospice but patient regardless presented to the ER with shortness of breath found to have florid congestive heart failure and work-up included cardiology management but when I saw her at the bedside she appeared to be abreu ashen and pale becoming hypoxic and patient required ICU transfer just based on clinical status decompensation. Patient was found to have respiratory acidosis with hypercapnia requiring BiPAP and may ultimately require intubation. Patient appears to be extremely chronically ill and unsure of her ejection fraction but it appears to be very low with a very very poor prognosis. Subjective/Events-last exam Patient appeared confused about yesterday's events Patient reports that the she is uncomfortable Legs were still swollen Visitor at bedside reported the patient is breathing much better and looks much better. Review of Systems General: No Chills, No Other (fevers) HEENT: No Head Aches, No Ear Pain Pulmonary: Dyspnea, Cough Cardiovascular: Edema; No: Chest Pain, Palpitations Gastrointestinal: No: Nausea, Vomiting, Abdominal Pain Genitourinary: Other (Patient has catheter) Neurological: Numbness (In legs) Focused Exam Lactate Level 05/04/19 14:50: Lactic Acid Level 0.86 Objective Exam Vital Signs Vital Signs Date Time Temp Pulse Resp B/P (MAP) Pulse Ox O2 Delivery O2 Flow Rate FiO2 05/05/19 14:00 97 15 121/64 (83) Vapotherm 35.00 40.00 05/05/19 13:00 91 05/05/19 10:09 40 05/05/19 04:19 35.8 Capillary Refill : Less Than 3 Seconds General Appearance: Chronically ill, Obese, Other (Pursed lips while breathing. ) HEENT: PERRL/EOMI, Normal ENT Inspection Neck: Non Tender, Supple Respiratory: Chest Non Tender, Decreased Breath Sounds, Other (Increased respiratory effort. Pursed lips. Requiring oxygen) Cardiovascular: Regular Rate, Rhythm, Normal Peripheral Pulses (2/4 radial Bilaterally), Other (+3 LE edema) Gastrointestinal: Non Tender, Soft Neurologic/Psychiatric: Alert, Other (Patient appears confused about events yesterday) Results/Procedures Lab Laboratory Tests 05/04/19 14:50 05/05/19 03:00 Patient resulted labs reviewed. Assessment/Plan Assessment and Plan Assess & Plan/Chief Complaint COPD exacerbation CHF Edema Shortness of breath Continue monitoring with daily x-rays and labs Patient requiring oxygen support because of increased respiratory effort. May require intubation if O2 stats drop Clinical Quality Measures DVT/VTE Risk/Contraindication: Risk Factor Score Per Nursin RFS Level Per Nursing on Admit: 4+=Very High THELMA DAS DO 05/06/19 1001: Subjective Subjective/Events-last exam Pt had a restless night Pt appears to be extremely end stage Pt is pale and pasty and rodgers Trying to wean off Vapotherm Echocardiogram done Overall significant poor prognosis and daughter is at the bedside Review of Systems Pulmonary: Dyspnea Objective Exam General Appearance: Anxious, Chronically ill, Mild Distress, Obese Respiratory: Decreased Breath Sounds Cardiovascular: Regular Rate, Rhythm Neurologic/Psychiatric: Alert, Oriented x3, No Motor/Sensory Deficits, Normal Mood/Affect Assessment/Plan Assessment and Plan Assess & Plan/Chief Complaint ICU Appreciate cardiology Poor prognosis Diagnosis/Problems Diagnosis/Problems (1) Respiratory failure (2) CO2 narcosis (3) Hypercapnia (4) Respiratory acidosis (5) Volume overload Status: Acute Qualifiers: Qualified Codes: E87.70 - Fluid overload, unspecified (6) Acute heart failure Status: Acute Qualifiers: Qualified Codes: I50.9 - Heart failure, unspecified Supervisory-Addendum Brief Verification & Attestation Participated in pt care: history, MDM, physical Personally performed: exam, history, MDM, supervision of care Care discussed with: Medical Student Procedures: n/a Results interpretation: Verified all documentation Verification and Attestation of Medical Student E/M Service A medical student performed and documented this service in my presence. I reviewed and verified all information documented by the medical student and made modifications to such information, when appropriate. I personally performed the physical exam and medical decision making. Thelma Das, May 06, 2019,10:01 SHANICE BIRD May 05, 2019 14:23 THELMA ARRIAGA DO May 06, 2019 10:01 POS
[2019-05-05] MEDS: FUROSEMIDE 40 MG/4 ML INJ (LASIX) IVP SCH (16:43)
[2019-05-05] MEDS ORDERED: HYDROcodone/APAP 7.5 MG/325 MG (LORTAB, LORCET PLUS) TABLET PO ONE (19:58)
[2019-05-05] MEDS: HYDROcodone/APAP 7.5 MG/325 MG (LORTAB, LORCET PLUS) TABLET PO PRN (20:05)
[2019-05-06] VITALS (16 sets, daily range): BP systolic 106–139; BP diastolic 43–88
[2019-05-06] MEDS: RT-ALBUTEROL/IPRATROPIUM 3 ML (DUONEB) VIAL INH SCH ×6 (02:00→22:41)
[2019-05-06 04:01] LABS: BASOPHILS % (AUTO) 0 % (0-10); EOSINOPHILS % (AUTO) 0 % (0-10); HEMATOCRIT 38 % (35-52); HEMOGLOBIN 10.9 G/DL (11.5-16.0); LYMPHOCYTES # (AUTO) 0.5 X 10^3 (1.0-4.0); LYMPHOCYTES % (AUTO) 6 % (12-44); MEAN CORPUSCULAR HEMOGLOBIN 27 PG (25-34); MEAN CORPUSCULAR HGB CONC 29 G/DL (32-36); MEAN CORPUSCULAR VOLUME 95 FL (80-99); MEAN PLATELET VOLUME 10.6 FL (7.4-10.4); MONOCYTES # (AUTO) 0.2 X 10^3 (0.0-1.0); MONOCYTES % (AUTO) 2 % (0-12); NEUTROPHILS # (AUTO) 7.3 X 10^3 (1.8-7.8); NEUTROPHILS % (AUTO) 92 % (42-75); PLATELET COUNT 135 10^3/uL (130-400); RED CELL DISTRIBUTION WIDTH 15.3 % (10.0-14.5)
[2019-05-06 04:34] LABS: BUN/CREATININE RATIO 30; CALCIUM 7.7 MG/DL (8.5-10.1); CARBON DIOXIDE 32 MMOL/L (21-32); CHLORIDE 97 MMOL/L (98-107); CREATININE SERUM 0.71 MG/DL (0.60-1.30); GFR ESTIMATED > 60; GLUCOSE 252 MG/DL (70-105); MAGNESIUM 1.9 MG/DL (1.6-2.4); PHOSPHORUS 3.9 MG/DL (2.3-4.7); POTASSIUM 4.5 MMOL/L (3.6-5.0); SODIUM 142 MMOL/L (135-145)
[2019-05-06] MEDS: ENOXAPARIN 300 MG/3 ML (LOVENOX) MULTI-DOSE VIAL SQ SCH ×2 (05:41→16:22)
[2019-05-06] MEDS: methylPREDNISolone 40 MG/ML (Solu-MEDROL) VIAL IV SCH ×4 (05:41→23:16)
[2019-05-06] MEDS: FUROSEMIDE 40 MG/4 ML INJ (LASIX) IVP SCH ×2 (05:41→16:21)
[2019-05-06] MEDS: POTASSIUM CL 10MEQ/50ML IVPB 50 ML IV SCH (05:42)
[2019-05-06] MEDS: KCL 20 MEQ TAB (K-DUR) PO SCH (05:42)
[2019-05-06] MEDS: CATHETER FLUSH 10 ML SYR IV SCH ×3 (05:42→22:10)
[2019-05-06] MEDS: MAGNESIUM 1 GM/100 ML IVPB 100 ML IV SCH (05:42)
[2019-05-06] MEDS: inSUlin ASPART (NovoLOG) 1 UNIT/0.01 ML (CHARGE PER UNIT) SQ SCH ×4 (05:43→21:24)
[2019-05-06 06:43] LABS: LYMPHOCYTES % (MANUAL) 4 %; MONOCYTES % (MANUAL) 1 %; NEUTROPHILS % (MANUAL) 95 %
--- NOTE | 2019-05-06 07:27 | Cardiology Progress Note ---
Subjective Date Seen by Provider: May 06, 2019 Time Seen by Provider: 07:25 Subjective/Events-last exam Patient is in bed, sleepy, still on Vapotherm, no chest pain Review of Systems General: No Chills, No Night Sweats; Fatigue, Malaise; No Appetite, No Other HEENT: No Head Aches, No Visual Changes, No Eye Pain, No Ear Pain, No Dysphasia, No Sinus Congestion, No Post Nasal Drip, No Sore Throat, No Other Pulmonary: Dyspnea; No Cough, No Pleuritic Chest Pain, No Other Cardiovascular: Edema; No: Chest Pain, Palpitations, Orthopnea, Paroxysmal Noc. Dyspnea, Lt Headedness, Other Focused Exam Lactate Level 05/04/19 14:50: Lactic Acid Level 0.86 Objective-Cardiology Exam Last Set of Vital Signs Vital Signs 05/06/19 05/06/19 03:45 06:00 Temp 36.8 Pulse 73 Resp 25 B/P (MAP) 123/76 (92) Pulse Ox 86 O2 Delivery Vapotherm O2 Flow Rate 25.00 40.00 FiO2 40 Capillary Refill : Less Than 3 Seconds I&O Intake and Output 05/06/19 00:00 Intake Total 750 ml Output Total 3600 ml Balance -2850 ml Intake Oral 750 ml Output Urine Total 3600 ml General: Alert, Oriented X3, Cooperative HEENT: Atraumatic, PERRLA Neck: Supple, No JVD, No Thyromegaly Lungs: Normal Air Movement, Other (bilateral rhonchi) Heart: Regular Rate, Normal S1, Normal S2, No Murmurs Abdomen: Normal Bowel Sounds, Soft, No Tenderness, No Hepatosplenomegaly, No Masses Extremities: No Clubbing, No Cyanosis, Normal Pulses, No Tenderness/Swelling, Other (peripheral edema) Skin: No Significant Lesion, Other (erythema) Neuro: Normal Speech, Strength at 5/5 X4 Ext, Normal Tone, Sensation Intact Psych/Mental Status: Mental Status NL, Mood NL Results Lab Laboratory Tests 05/06/19 03:18 A/P-Cardiology Admission Diagnosis Congestive heart failure Coronary artery disease Hypertension Hyperlipidemia Assessment/Plan Congestive heart failure, acute on chronic left ventricular diastolic dysfunction, unknown etiology, had extensive workup done at [facility] last month including possible ICD attempt, reported that procedure was ca nceled due to patient becoming very unstable. Does not recall having a heart catheterization or a stress test. echocardiogram showed normal LV size and function, ejection fraction 60 percent. Continue to monitor Acute respiratory insufficiency, shortness of breath, pulmonary edema and exacerbation of COPD, on Vapotherm, managed by medical team. COPD, acute exacerbation, on Vapotherm at this timeby Dr. Hull Type II myocardial infarction, probably secondary to heart failure, mild elevation in troponin, continue to monitor trend, started on aspirin and Lovenox. Did not receive her records from [facility] Peripheral edema, improving slowly Hypertension, monitor blood pressure next Hyperlipidemia, restart home medication next Morbid obesity Clinical Quality Measures DVT/VTE Risk/Contraindication: Risk Factor Score Per Nursin RFS Level Per Nursing on Admit: 4+=Very High LINDY GROVER MD May 06, 2019 07:26 POS
[2019-05-06] MEDS: RT-BUDESONIDE NEBS 0.5 MG/2ML (PULMICORT) AMP INH SCH ×2 (07:51→19:20)
--- NOTE | 2019-05-06 08:38 | Diagnostic Imaging Report ---
EXAMINATION: Chest radiograph, portable AP view. DATE: 05/06/2019 3:58 AM hours. INDICATION: 68-year-old female, dyspnea. COMPARISON: May 05, 2019. FINDINGS: Stable overall appearance of the cardiomediastinal silhouette. There is no identified pneumothorax. There is no large pleural effusion. There is no identified interval focal airspace consolidation. There is a chronic appearing right rib deformity. IMPRESSION: 1. No identified interval acute cardiopulmonary abnormality. 2. There are slightly prominent pulmonary vascular markings which are unchanged and may relate to mild interstitial edema. Comparing back to initial imaging on May 04, 2019, findings are perhaps slightly improved. Dictated by: Dictated on workstation # [id number]
[2019-05-06] MEDS: PANTOPRAZOLE 40 MG (PROTONIX) TAB PO SCH (09:43)
[2019-05-06] MEDS: ASPIRIN E.C. 81 MG (ECOTRIN) TAB PO SCH (09:43)
[2019-05-06] MEDS: CARVEDILOL 3.125 MG (COREG) TABLET PO SCH ×2 (09:43→20:37)
--- NOTE | 2019-05-06 11:50 | Pulmonary Progress Note ---
Subjective Time Seen by a Provider: 11:49 Subjective/Events-last exam PT is doing better however she is refusing labs. Sepsis Event Evaluation Height, Weight, BMI Height: '" Weight: lbs. oz. kg; 48.00 BMI Method: Focused Exam Lactate Level 05/04/19 14:50: Lactic Acid Level 0.86 Exam Exam Vital Signs Date Time Temp Pulse Resp B/P (MAP) Pulse Ox O2 Delivery O2 Flow Rate FiO2 05/06/19 11:00 75 25 130/88 (102) 94 Vapotherm 25.00 40.00 05/06/19 10:00 90 49 106/66 (79) 93 Vapotherm 25.00 40.00 05/06/19 09:00 104 21 133/78 (96) 82 Vapotherm 25.00 40.00 05/06/19 08:00 93 25.00 40 05/06/19 08:00 82 11 133/87 (102) 92 Vapotherm 25.00 40.00 05/06/19 08:00 93 Vapotherm 25.00 40 05/06/19 07:53 93 Vapotherm 25.00 40 05/06/19 07:00 73 27 116/76 (89) 91 Vapotherm 25.00 40.00 05/06/19 07:00 70 05/06/19 06:00 73 25 123/76 (92) 86 Vapotherm 25.00 40.00 05/06/19 05:00 68 26 119/66 (83) 93 Vapotherm 25.00 40.00 05/06/19 04:35 70 26 126/75 (92) 91 Vapotherm 25.00 40.00 05/06/19 03:45 36.8 05/06/19 03:45 93 Vapotherm 25.00 40 05/06/19 03:00 75 31 127/63 (84) 92 Vapotherm 25.00 40.00 05/06/19 02:00 74 26 120/57 (78) 91 Vapotherm 25.00 40.00 05/06/19 01:08 Vapotherm 25.00 40.00 05/06/19 01:00 75 33 118/68 (85) 91 NIV Bilevel 35.00 05/06/19 01:00 75 05/06/19 00:00 73 22 112/62 (79) 91 NIV Bilevel 35.00 05/05/19 23:35 36.5 NIV Bilevel 35.00 05/05/19 23:35 92 NIV Bilevel 35 05/05/19 23:00 84 30 111/61 (78) 91 NIV Bilevel 35.00 05/05/19 22:15 NIV Bilevel 35.00 05/05/19 22:00 90 14 136/82 (100) 89 Vapotherm 25.00 40.00 05/05/19 21:22 90 Vapotherm 25.00 40 05/05/19 21:00 101 23 136/72 (93) 89 Vapotherm 25.00 40.00 05/05/19 20:00 36.2 05/05/19 20:00 99 22 132/108 (116) 89 Vapotherm 25.00 40.00 05/05/19 19:30 91 Vapotherm 25.00 40 05/05/19 19:28 97 145/79 (101) Vapotherm 25.00 40.00 05/05/19 19:20 Vapotherm 25.00 40.00 05/05/19 19:08 91 Vapotherm 25.00 40 05/05/19 19:07 91 Vapotherm 25.00 40 05/05/19 19:00 101 05/05/19 18:00 112 25 92 Vapotherm 35.00 40.00 05/05/19 17:00 118 21 139/85 (103) Vapotherm 35.00 40.00 05/05/19 16:09 Vapotherm 35 05/05/19 16:00 113 33 139/85 (103) Vapotherm 35.00 40.00 05/05/19 16:00 36.9 05/05/19 15:00 104 25 Vapotherm 35.00 40.00 05/05/19 14:37 91 Vapotherm 25.00 40 05/05/19 14:00 97 15 121/64 (83) Vapotherm 35.00 40.00 05/05/19 13:00 101 31 91 Vapotherm 35.00 40.00 05/05/19 12:29 108 05/05/19 12:00 108 37 Vapotherm 35.00 40.00 05/05/19 12:00 Vapotherm 35 I & O 05/06/19 07:00 Intake Total 600 ml Output Total 3900 ml Balance -3300 ml Height & Weight Height: '" Weight: lbs. oz. kg; 48.00 BMI Method: General Appearance: No Apparent Distress, Anxious, Chronically ill, Obese HEENT: PERRL/EOMI, Normal ENT Inspection Neck: Non Tender, Supple Respiratory: Decreased Breath Sounds Cardiovascular: Regular Rate, Rhythm Capillary Refill: Less Than 3 Seconds Gastrointestinal: non tender, soft Extremity: Pedal Edema Neurologic/Psychiatric: Alert, Oriented x3, No Motor/Sensory Deficits, Normal Mood/Affect Skin: Normal Color, Warm/Dry Lymphatic: No Adenopathy Results Lab Laboratory Tests 05/04/19 14:50 05/05/19 03:00 05/06/19 03:18 Assessment/Plan Assessment/Plan Acute on chronic respiratory failure -Noninvasive ventilation -C02 on ABG is 90 -Pt is now refusing labs and ABGs -solumedrol Pulmonary edema and bilateral pleural effusions COPDAE -solumedrol -SVNs with duoneb Q 4 and add pulmicort BID CHFAE -Lasix -Echo pending -Cardiology following Hypotension - mild -Monitor Obesity OHS -Will benefit from home vent to mask Anemia -Monitor -Check occult stool PANKAJ VALENTINE DO May 06, 2019 11:50 POS
--- NOTE | 2019-05-06 12:12 | Progress Note - Hospitalist ---
Subjective HPI/CC On Admission Date Seen by Provider: May 06, 2019 Time Seen by Provider: 10:30 Chief complaint: Shortness of breath with clinical decline requiring ICU transfer History of present illness: This is a 68-year-old white female who has a history of a recent hospital stay in [place] with preparation of placing a defibrillator but could not accomplish that due to instability and questionable discharge that was recommended on hospice but patient regardless presented to the ER with shortness of breath found to have florid congestive heart failure and work-up included cardiology management but when I saw her at the bedside she appeared to be abreu ashen and pale becoming hypoxic and patient required ICU transfer just based on clinical status decompensation. Patient was found to have respiratory acidosis with hypercapnia requiring BiPAP and may ultimately require intubation. Patient appears to be extremely chronically ill and unsure of her ejection fraction but it appears to be very low with a very very poor prognosis. Subjective/Events-last exam Refusing to use BiPAP Vapotherm maintain We will transfer to the floor Denies any significant pain Diuresis is going pretty well Patient overall appears to be very debilitated and prognosis is extremely poor Review of Systems Pulmonary: Dyspnea Cardiovascular: Edema Focused Exam Lactate Level Objective Exam Vital Signs Vital Signs Date Time Temp Pulse Resp B/P (MAP) Pulse Ox O2 Delivery O2 Flow Rate FiO2 05/07/19 13:49 91 Vapotherm 25.00 40 05/07/19 13:00 98 05/07/19 11:23 36.6 24 142/68 (92) Capillary Refill : Less Than 3 Seconds General Appearance: No Apparent Distress, WD/WN, Chronically ill Respiratory: Chest Non Tender, Lungs Clear, Normal Breath Sounds, No Accessory Muscle Use, No Respiratory Distress Cardiovascular: Regular Rate, Rhythm, No Gallop, No JVD, No Murmur, Normal Peripheral Pulses Extremity: Pedal Edema Neurologic/Psychiatric: Alert, Oriented x3, No Motor/Sensory Deficits, Normal Mood/Affect Results/Procedures Lab Laboratory Tests 05/07/19 04:50 Patient resulted labs reviewed. Assessment/Plan Assessment and Plan Assess & Plan/Chief Complaint Assessment: Acute on chronic congestive heart failure Acute respiratory failure Anasarca Extreme debility Plan: IV diuresis Home meds Transfer to fourth floor BiPAP Vapotherm Diagnosis/Problems Diagnosis/Problems (1) Respiratory failure (2) CO2 narcosis (3) Hypercapnia (4) Respiratory acidosis (5) Volume overload Status: Acute Qualifiers: Hypervolemia type: unspecified Qualified Codes: E87.70 - Fluid overload, unspecified (6) Acute heart failure Status: Acute Qualifiers: Heart failure type: unspecified Qualified Codes: I50.9 - Heart failure, unspecified Clinical Quality Measures DVT/VTE Risk/Contraindication: Risk Factor Score Per Nursin RFS Level Per Nursing on Admit: 4+=Very High YANET DAS DO May 06, 2019 12:12 POS
[2019-05-06] MEDS: HYDROcodone/APAP 7.5 MG/325 MG (LORTAB, LORCET PLUS) TABLET PO PRN (20:35)
[2019-05-07] VITALS (7 sets, daily range): BP systolic 110–142; BP diastolic 60–76
[2019-05-07] MEDS: RT-ALBUTEROL/IPRATROPIUM 3 ML (DUONEB) VIAL INH SCH ×5 (03:25→18:58)
[2019-05-07 05:00] LABS: BASOPHILS % (AUTO) 0 % (0-10); EOSINOPHILS % (AUTO) 0 % (0-10); HEMATOCRIT 40 % (35-52); HEMOGLOBIN 11.1 G/DL (11.5-16.0); LYMPHOCYTES # (AUTO) 0.6 X 10^3 (1.0-4.0); LYMPHOCYTES % (AUTO) 5 % (12-44); MEAN CORPUSCULAR HEMOGLOBIN 27 PG (25-34); MEAN CORPUSCULAR HGB CONC 28 G/DL (32-36); MEAN CORPUSCULAR VOLUME 96 FL (80-99); MONOCYTES # (AUTO) 0.5 X 10^3 (0.0-1.0); MONOCYTES % (AUTO) 5 % (0-12); NEUTROPHILS # (AUTO) 10.8 X 10^3 (1.8-7.8); NEUTROPHILS % (AUTO) 90 % (42-75); PLATELET COUNT 160 10^3/uL (130-400); RED CELL DISTRIBUTION WIDTH 15.7 % (10.0-14.5); WHITE BLOOD COUNT 11.9 10^3/uL (4.3-11.0)
[2019-05-07 05:14] LABS: BUN/CREATININE RATIO 33; CALCIUM 7.9 MG/DL (8.5-10.1); CARBON DIOXIDE 37 MMOL/L (21-32); CHLORIDE 94 MMOL/L (98-107); GFR ESTIMATED > 60; GLUCOSE 162 MG/DL (70-105); MAGNESIUM 2.1 MG/DL (1.6-2.4); PHOSPHORUS 3.9 MG/DL (2.3-4.7); POTASSIUM 5.1 MMOL/L (3.6-5.0); SODIUM 142 MMOL/L (135-145)
[2019-05-07] MEDS: ENOXAPARIN 300 MG/3 ML (LOVENOX) MULTI-DOSE VIAL SQ SCH (06:16)
[2019-05-07] MEDS: inSUlin ASPART (NovoLOG) 1 UNIT/0.01 ML (CHARGE PER UNIT) SQ SCH ×4 (06:16→21:22)
[2019-05-07] MEDS: methylPREDNISolone 40 MG/ML (Solu-MEDROL) VIAL IV SCH ×4 (06:16→23:44)
[2019-05-07] MEDS: CATHETER FLUSH 10 ML SYR IV SCH ×3 (06:16→21:27)
[2019-05-07] MEDS: FUROSEMIDE 40 MG/4 ML INJ (LASIX) IVP SCH ×2 (06:20→17:20)
[2019-05-07] MEDS ORDERED: ACETAMINOPHEN 500 MG TAB (TYLENOL) ONE (08:45)
[2019-05-07] MEDS: ASPIRIN E.C. 81 MG (ECOTRIN) TAB PO SCH (08:45)
[2019-05-07] MEDS: PANTOPRAZOLE 40 MG (PROTONIX) TAB PO SCH (08:45)
[2019-05-07] MEDS: CARVEDILOL 3.125 MG (COREG) TABLET PO SCH ×2 (08:45→21:22)
--- NOTE | 2019-05-07 08:47 | Cardiology Progress Note ---
Subjective Date Seen by Provider: May 07, 2019 Time Seen by Provider: 08:45 Subjective/Events-last exam Patient is laying down in bed. Denied any chest pain, still on Vapotherm Review of Systems General: No Chills, No Night Sweats, No Fatigue, No Malaise, No Appetite, No Other HEENT: No Head Aches, No Visual Changes, No Eye Pain, No Ear Pain, No Dysphasia, No Sinus Congestion, No Post Nasal Drip, No Sore Throat, No Other Pulmonary: Dyspnea; No Cough, No Pleuritic Chest Pain, No Other Cardiovascular: No: Chest Pain, Palpitations, Orthopnea, Paroxysmal Noc. Dyspnea, Edema, Lt Headedness, Other Focused Exam Lactate Level 05/04/19 14:50: Lactic Acid Level 0.86 Objective-Cardiology Exam Last Set of Vital Signs Vital Signs 05/06/19 05/07/19 22:40 07:59 Temp 36.2 Pulse 78 Resp 24 B/P (MAP) 123/73 (90) Pulse Ox 92 O2 Delivery Vapotherm O2 Flow Rate 25.00 40.00 FiO2 40 Capillary Refill : Less Than 3 Seconds I&O Intake and Output 05/07/19 00:00 Intake Total 1000 ml Output Total 3050 ml Balance -2050 ml Intake Oral 1000 ml Output Urine Total 3050 ml # Bowel Movements 1 General: Alert, Oriented X3, Cooperative HEENT: Atraumatic, PERRLA Neck: Supple, No JVD, No Thyromegaly Lungs: Normal Air Movement, Other (bilateral rhonchi) Heart: Regular Rate, Normal S1, Normal S2, No Murmurs Abdomen: Normal Bowel Sounds, Soft, No Tenderness, No Hepatosplenomegaly, No Masses Extremities: No Clubbing, No Cyanosis, Normal Pulses, No Tenderness/Swelling, Other (peripheral edema) Skin: No Significant Lesion, Other (erythema) Neuro: Normal Speech, Strength at 5/5 X4 Ext, Normal Tone, Sensation Intact Psych/Mental Status: Mental Status NL, Mood NL Results Lab Laboratory Tests 05/07/19 04:50 A/P-Cardiology Admission Diagnosis Congestive heart failure Coronary artery disease Hypertension Hyperlipidemia Assessment/Plan Congestive heart failure, acute on chronic left ventricular diastolic dysfunction, unknown etiology, had extensive workup done at [facility] last month including possible ICD attempt, reported that procedure was canceled due to patient becoming very unstable. Does not recall having a heart catheterization or a stress test. echocardiogram showed normal LV size and fun ction, ejection fraction 60 percent. Continue to monitor Acute respiratory insufficiency, shortness of breath, pulmonary edema and exacerbation of COPD, on Vapotherm, managed by medical team. COPD, acute exacerbation, on Vapotherm at this timeby Dr. Hull Type II myocardial infarction, probably secondary to heart failure, mild elevation in troponin, continue to monitor trend, started on aspirin and Lovenox. Did not receive her records from [facility] Peripheral edema, improving slowly Hypertension, monitor blood pressure next Hyperlipidemia, restart home medication next Morbid obesity Clinical Quality Measures DVT/VTE Risk/Contraindication: Risk Factor Score Per Nursin RFS Level Per Nursing on Admit: 4+=Very High LINDY GROVER MD May 07, 2019 08:47 POS
--- NOTE | 2019-05-07 09:24 | Diagnostic Imaging Report ---
CLINICAL INDICATION: Patient with dyspnea. EXAM: Portable chest x-ray upright view. COMPARISONS: Portable chest x-ray dated 05/06/2019. FINDINGS: There is interval progression of mild right basilar atelectasis versus infiltrate. The remainder of lungs are clear. Stable cardiomegaly with no significant pulmonary vascular congestion. There is no pleural effusion or pneumothorax. There are degenerative spurs involving the thoracic spine. IMPRESSION: 1. Interval progression of mild right basilar atelectasis versus infiltrate. 2: Stable cardiomegaly with no significant pulmonary vascular congestion. Dictated by: Dictated on workstation # [id number]
[2019-05-07] MEDS: RT-BUDESONIDE NEBS 0.5 MG/2ML (PULMICORT) AMP INH SCH ×2 (09:56→18:58)
--- NOTE | 2019-05-07 12:10 | Progress Note - Hospitalist ---
Subjective HPI/CC On Admission Date Seen by Provider: May 07, 2019 Time Seen by Provider: 10:30 Chief complaint: Shortness of breath with clinical decline requiring ICU transfer History of present illness: This is a 68-year-old white female who has a history of a recent hospital stay in [place] with preparation of placing a defibrillator but could not accomplish that due to instability and questionable discharge that was recommended on hospice but patient regardless presented to the ER with shortness of breath found to have florid congestive heart failure and work-up included cardiology management but when I saw her at the bedside she appeared to be abreu ashen and pale becoming hypoxic and patient required ICU transfer just based on clinical status decompensation. Patient was found to have respiratory acidosis with hypercapnia requiring BiPAP and may ultimately require intubation. Patient appears to be extremely chronically ill and unsure of her ejection fraction but it appears to be very low with a very very poor prognosis. Subjective/Events-last exam Patient doing pretty well overall Daughter at the bedside No major issues Appears to be extremely debilitated and end-of-life status Bowels are moving Maintained on catheter due to aggressive diuresis Maintain on Vapotherm Review of Systems Pulmonary: Dyspnea Cardiovascular: Edema Focused Exam Lactate Level Objective Exam Vital Signs Vital Signs Date Time Temp Pulse Resp B/P (MAP) Pulse Ox O2 Delivery O2 Flow Rate FiO2 05/07/19 13:49 91 Vapotherm 25.00 40 05/07/19 13:00 98 05/07/19 11:23 36.6 24 142/68 (92) Capillary Refill : Less Than 3 Seconds General Appearance: WD/WN, Chronically ill, Mild Distress, Obese Respiratory: Normal Breath Sounds, Decreased Breath Sounds Cardiovascular: Regular Rate, Rhythm Extremity: Pedal Edema Neurologic/Psychiatric: Alert, Oriented x3 Results/Procedures Lab Laboratory Tests 05/07/19 04:50 Patient resulted labs reviewed. Assessment/Plan Assessment and Plan Assess & Plan/Chief Complaint Assessment: Acute on chronic congestive heart failure Acute respiratory failure Anasarca Extreme debility Plan: IV diuresis Home meds Transfer to fourth floor BiPAP Vapotherm Diagnosis/Problems Diagnosis/Problems (1) Respiratory failure (2) CO2 narcosis (3) Hypercapnia (4) Respiratory acidosis (5) Volume overload Status: Acute Qualifiers: Hypervolemia type: unspecified Qualified Codes: E87.70 - Fluid overload, unspecified (6) Acute heart failure Status: Acute Qualifiers: Heart failure type: unspecified Qualified Codes: I50.9 - Heart failure, unspecified Clinical Quality Measures DVT/VTE Risk/Contraindication: Risk Factor Score Per Nursin RFS Level Per Nursing on Admit: 4+=Very High YANET DAS DO May 07, 2019 12:10 POS
[2019-05-07] MEDS: HYDROcodone/APAP 7.5 MG/325 MG (LORTAB, LORCET PLUS) TABLET PO PRN (14:12)
[2019-05-08 03:44] LABS: BASOPHILS % (AUTO) 0 % (0-10); EOSINOPHILS % (AUTO) 0 % (0-10); HEMATOCRIT 38 % (35-52); HEMOGLOBIN 10.8 G/DL (11.5-16.0); LYMPHOCYTES # (AUTO) 0.5 X 10^3 (1.0-4.0); LYMPHOCYTES % (AUTO) 5 % (12-44); MEAN CORPUSCULAR HEMOGLOBIN 27 PG (25-34); MEAN CORPUSCULAR HGB CONC 29 G/DL (32-36); MEAN CORPUSCULAR VOLUME 96 FL (80-99); MONOCYTES # (AUTO) 0.6 X 10^3 (0.0-1.0); MONOCYTES % (AUTO) 6 % (0-12); NEUTROPHILS # (AUTO) 9.4 X 10^3 (1.8-7.8); NEUTROPHILS % (AUTO) 89 % (42-75); PLATELET COUNT 169 10^3/uL (130-400); RED CELL DISTRIBUTION WIDTH 15.2 % (10.0-14.5); WHITE BLOOD COUNT 10.5 10^3/uL (4.3-11.0)
[2019-05-08 04:08] LABS: BUN/CREATININE RATIO 32; CALCIUM 7.9 MG/DL (8.5-10.1); CARBON DIOXIDE 41 MMOL/L (21-32); CHLORIDE 92 MMOL/L (98-107); CREATININE SERUM 0.76 MG/DL (0.60-1.30); GFR ESTIMATED > 60; GLUCOSE 168 MG/DL (70-105); PHOSPHORUS 3.9 MG/DL (2.3-4.7); POTASSIUM 4.6 MMOL/L (3.6-5.0); SODIUM 142 MMOL/L (135-145)
[2019-05-08 04:25] VITALS: BP 128/75
[2019-05-08] MEDS: FUROSEMIDE 40 MG/4 ML INJ (LASIX) IVP SCH ×2 (06:33→17:20)
[2019-05-08] MEDS: methylPREDNISolone 40 MG/ML (Solu-MEDROL) VIAL IV SCH ×3 (06:33→17:20)
[2019-05-08] MEDS: CATHETER FLUSH 10 ML SYR IV SCH ×3 (06:34→21:32)
--- NOTE | 2019-05-08 06:46 | Diagnostic Imaging Report ---
Indication: Shortness of breath. Comparison: 05/07/2019 Findings: Single view of the chest demonstrates stable cardiac enlargement with central vascular congestion, similar to the prior exam. There is no pneumothorax or effusion. Osseous structures are normal. Impression: Cardiac enlargement with slight central vascular congestion. Dictated by: Dictated on workstation # [id number]
[2019-05-08] MEDS: inSUlin ASPART (NovoLOG) 1 UNIT/0.01 ML (CHARGE PER UNIT) SQ SCH ×4 (06:57→21:31)
[2019-05-08] MEDS: RT-ALBUTEROL/IPRATROPIUM 3 ML (DUONEB) VIAL INH SCH ×5 (07:11→23:30)
[2019-05-08] MEDS: RT-BUDESONIDE NEBS 0.5 MG/2ML (PULMICORT) AMP INH SCH ×2 (07:13→23:30)
[2019-05-08 07:35] VITALS: BP 136/84
[2019-05-08] MEDS: ASPIRIN E.C. 81 MG (ECOTRIN) TAB PO SCH (08:38)
[2019-05-08] MEDS: ENOXAPARIN 40 MG/0.4 ML (LOVENOX) SYR SQ SCH ×2 (08:38→21:31)
[2019-05-08] MEDS: PANTOPRAZOLE 40 MG (PROTONIX) TAB PO SCH (08:38)
[2019-05-08] MEDS: CARVEDILOL 3.125 MG (COREG) TABLET PO SCH ×2 (08:38→21:31)
--- NOTE | 2019-05-08 08:46 | Cardiology Progress Note ---
Subjective Date Seen by Provider: May 08, 2019 Time Seen by Provider: 08:41 Subjective/Events-last exam Patient is in bed, feeling better, I received her records from [facility], had a long discussion with the patient regarding her management plan would be discussed below Review of Systems General: No Chills, No Night Sweats, No Fatigue, No Malaise, No Appetite, No Other HEENT: No Head Aches, No Visual Changes, No Eye Pain, No Ear Pain, No Dysphasia, No Sinus Congestion, No Post Nasal Drip, No Sore Throat, No Other Pulmonary: Dyspnea; No Cough, No Pleuritic Chest Pain, No Other Cardiovascular: Edema; No: Chest Pain, Palpitations, Orthopnea, Paroxysmal Noc. Dyspnea, Lt Headedness, Other Objective-Cardiology Exam Last Set of Vital Signs Vital Signs 05/08/19 05/08/19 07:18 07:35 Temp 36.3 Pulse 59 Resp 19 B/P (MAP) 136/84 (101) Pulse Ox 100 O2 Delivery High Flow N/C O2 Flow Rate 15.00 FiO2 40 Capillary Refill : Less Than 3 Seconds I&O Intake and Output 05/08/19 00:00 Intake Total 1680 ml Output Total 4775 ml Balance -3095 ml Intake Oral 1680 ml Output Urine Total 4775 ml General: Alert, Oriented X3, Cooperative HEENT: Atraumatic, PERRLA Neck: Supple, No JVD, No Thyromegaly Lungs: Clear to Auscultation, Normal Air Movement Heart: Regular Rate, Normal S1, Normal S2, No Murmurs Abdomen: Normal Bowel Sounds, Soft, No Tenderness, No Hepatosplenomegaly, No Masses Extremities: No Clubbing, No Cyanosis, Normal Pulses, No Tenderness/Swelling, Other (peripheral edema) Skin: No Significant Lesion, Other (erythema) Neuro: Normal Speech, Strength at 5/5 X4 Ext, Normal Tone, Sensation Intact Psych/Mental Status: Mental Status NL, Mood NL Results Lab Laboratory Tests 05/08/19 03:30 A/P-Cardiology Admission Diagnosis Congestive heart failure Coronary artery disease Hypertension Hyperlipidemia Assessment/Plan Congestive heart failure, acute on chronic left ventricular diastolic dysfunction, hypertensive heart disease. Continue to monitor Cardiac catheterization was done in December 2018 in [facility] and reported having nonobstructive coronary artery disease History of recurrent nonsustained ventricular tachycardia, history of syncope in the past. Patient has an attempt for ICD placement and became severely hypoxemic during induction of sedation. Procedure was canceled. Patient was DO NOT RESUSCITATE at that time and she was placed on hospice care. I had a long discussion with the patient, she is not on DO NOT RESUSCITATE at this point and she has reversed for hospice and comfort care. We discussed the possibility of proceeding with ICD implant with intubation and she is agreeable to the procedure COPD, restrictive lung disease, stage IV, FEV1 0.56, cannot tolerate BiPAP but s he is working on it. Expressed that she is willing to use the BiPAP for 3 hours at night then take a break then use it for another 3 hours. The recommendation was at [facility] for at least 6 hours, currently on high flow oxygen. Paroxysmal atrial fibrillation, had history of recurrent falls with severe consequences, at that point it was not recommended that she be on oral anticoagulation. We will continue monitoring. History of loop recorder implantation, we will interrogate her recorder and evaluate for any arrhythmia. Type II myocardial infarction, probably secondary to hypoxemia, mild elevation in troponin, had a cardiac catheterization on January 11, 2019 in [facility] and reported normal coronaries. Continue to monitor Peripheral edema, improving slowly Hypertension, monitor blood pressure next Hyperlipidemia, restart home medication next Morbid obesity Clinical Quality Measures DVT/VTE Risk/Contraindication: Risk Factor Score Per Nursin RFS Level Per Nursing on Admit: 4+=Very High LINDY GROVER MD May 08, 2019 08:46 POS
[2019-05-08] MEDS ORDERED: IOHEXOL 350 MG/ML 150 ML (OMNIPAQUE 350) VIAL IV ONE (10:15)
[2019-05-08] MEDS ORDERED: NS 100 ML (IVPB) BAG IV ONE (10:15)
[2019-05-08] MEDS ORDERED: HOLD METFORMIN - RECEIVED CONTRAST 20 ML VIAL IV SCH (10:15)
[2019-05-08] MEDS ORDERED: CATHETER FLUSH 10 ML SYR IV PRN (10:15)
--- NOTE | 2019-05-08 10:40 | Pulmonary Progress Note ---
Subjective Time Seen by a Provider: 10:40 Subjective/Events-last exam Dr. Maldonado is planning on placing ICD. Sepsis Event Evaluation Height, Weight, BMI Height: '" Weight: lbs. oz. kg; 48.00 BMI Method: Exam Exam Vital Signs Date Time Temp Pulse Resp B/P (MAP) Pulse Ox O2 Delivery O2 Flow Rate FiO2 05/08/19 08:35 High Flow N/C 15.00 05/08/19 07:35 36.3 59 19 136/84 (101) 100 High Flow N/C 15.00 05/08/19 07:18 90 Vapotherm 15.00 40 05/08/19 07:11 93 Vapotherm 25.00 40 05/08/19 07:00 73 05/08/19 04:25 36.8 62 22 128/75 (92) 95 Vapotherm 25.00 40.00 05/08/19 01:00 78 05/07/19 23:49 36.8 67 20 126/76 (93) 96 Vapotherm 25.00 40.00 05/07/19 20:00 36.4 91 24 129/60 (83) 93 Vapotherm 25.00 40.00 05/07/19 20:00 Vapotherm 25.00 40 05/07/19 19:00 97 05/07/19 18:58 92 Vapotherm 25.00 40 05/07/19 18:58 92 Vapotherm 25.00 40 05/07/19 16:00 36.4 80 24 135/60 (85) 93 Vapotherm 25.00 40.00 05/07/19 13:49 91 Vapotherm 25.00 40 05/07/19 13:00 98 05/07/19 11:23 36.6 71 24 142/68 (92) 95 Vapotherm 25.00 40.00 I & O 05/08/19 07:00 Intake Total 2030 ml Output Total 4975 ml Balance -2945 ml Height & Weight Height: '" Weight: lbs. oz. kg; 48.00 BMI Method: General Appearance: WD/WN, Chronically ill, Mild Distress, Obese HEENT: PERRL/EOMI, Normal ENT Inspection Neck: Non Tender, Supple Respiratory: Normal Breath Sounds, Decreased Breath Sounds Cardiovascular: Regular Rate, Rhythm Capillary Refill: Less Than 3 Seconds Gastrointestinal: non tender, soft Extremity: Pedal Edema Neurologic/Psychiatric: Alert, Oriented x3 Skin: Normal Color, Warm/Dry Lymphatic: No Adenopathy Results Lab Laboratory Tests 05/07/19 04:50 05/08/19 03:30 Assessment/Plan Assessment/Plan Acute on chronic respiratory failure -Noninvasive ventilation -C02 on ABG is 90 -Pt will benefit from home vent to mask. -Pt is high risk for secondary to chronic respiratory failure -Will ask DME to evaluate pt for home vent to mask -Continue solumedrol for now History of recurrent nonsustained ventricular tachycardia, history of syncope in the past. Patient has an attempt for ICD placement and became severely hy poxemic during induction of sedation. Procedure was canceled. -Pt is now currently a full CODE. Plan is to proceed with ICD implant with intubation and she is agreeable to the procedure. -Dr. Maldonado discussed plan of care with ICD with intubation with me and with patient. -PT is ok from pulmonary standpoint to proceed with procedure. I will be here to help wean pt of vent after procedure. Pulmonary edema and bilateral pleural effusions COPDAE -solumedrol -SVNs with duoneb Q 4 and add pulmicort BID CHFAE -acute on chronic left ventricular diastolic dysfunction -Lasix -Echo -Cardiology following -Cardiac catheterization was done in December 2018 in [facility] and reported having nonobstructive coronary artery disease Obesity OHS -Will benefit from home vent to mask Anemia -Monitor -Check occult stool Paroxysmal atrial fibrillation Peripheral edema, improving slowly Hypertension Hyperlipidemia Morbid obesity PANKAJ VALENTINE DO May 08, 2019 10:40 POS
--- NOTE | 2019-05-08 10:59 | Diagnostic Imaging Report ---
PROCEDURE: CT angiography of the chest with contrast. TECHNIQUE: Multiple contiguous axial images were obtained through the chest after uneventful bolus administration of intravenous contrast. 3D reconstructed CTA MIP acquisitions were also performed. Auto Exposure Controls were utilized during the CT exam to meet ALARA standards for radiation dose reduction. INDICATION: Chest pain and shortness of breath. FINDINGS: There is a right basal consolidation suspect for pneumonia with a small right pleural effusion. There is also some left basilar subsegmental atelectasis and/or pneumonitis. There is centrilobular emphysematous disease bilaterally. There is no pneumothorax. The thoracic aorta is normal in caliber without evidence of dissection. There are no filling defects seen within the pulmonary arteries to suggest pulmonary embolism. There is no pathologically enlarged adenopathy in the chest. There is cardiomegaly. The visualized intra-abdominal structures are unremarkable. There is mild thoracic spondylosis. IMPRESSION: Right basilar pneumonia with a small right pleural effusion. Diffuse centrilobular emphysematous disease with some left basilar subsegmental atelectasis and/or pneumonitis. Cardiomegaly. No evidence of pulmonary embolism or aortic dissection. Dictated by: Dictated on workstation # [id number]
[2019-05-08 15:17] VITALS: BP 136/84
[2019-05-08 15:41] VITALS: BP 128/69
--- NOTE | 2019-05-08 20:55 | Progress Note ---
Subjective Subjective/Events-last exam Patient stable this AM. Eating take out this AM. Denies any pain. Review of Systems Pulmonary: Dyspnea, Cough Cardiovascular: Palpitations; No: Chest Pain Gastrointestinal: No: Nausea, Vomiting, Abdominal Pain, Diarrhea, Constipation Genitourinary: No Dysuria, No Frequency, No Incontinence Neurological: Weakness, Incoordination, Confusion Objective Exam Last Set of Vital Signs Vital Signs Date Time Temp Pulse Resp B/P (MAP) Pulse Ox O2 Delivery O2 Flow Rate FiO2 05/08/19 18:47 88 05/08/19 18:47 96 High Flow N/C 8.00 05/08/19 15:41 36.4 24 128/69 (88) 05/08/19 07:18 40 Capillary Refill : Less Than 3 Seconds I&O Intake and Output 05/08/19 00:00 Intake Total 1680 ml Output Total 4775 ml Balance -3095 ml Intake Oral 1680 ml Output Urine Total 4775 ml General: Alert, Cooperative, Mild Distress Lungs: Other (Diminished breath sounds bilaterally) Heart: Regular Rate Abdomen: Normal Bowel Sounds, Soft, No Tenderness, No Masses Extremities: Other (3+ pitting edema bilaterally) Neuro: Sensation Intact, Cranial Nerves 3-12 NL Results/Procedures Lab Laboratory Tests 05/07/19 20:58: Glucometer 324H 05/08/19 03:30: White Blood Count 10.5, Red Blood Count 3.96L, Hemoglobin 10.8L, Hematocrit 38, Mean Corpuscular Volume 96, Mean Corpuscular Hemoglobin 27, Mean Corpuscular Hemoglobin Concent 29L, Red Cell Distribution Width 15.2H, Platelet Count 169, Mean Platelet Volume 10.0, Neutrophils (%) (Auto) 89H, Lymphocytes (%) (Auto) 5L , Monocytes (%) (Auto) 6, Eosinophils (%) (Auto) 0, Basophils (%) (Auto) 0, Neutrophils # (Auto) 9.4H, Lymphocytes # (Auto) 0.5L, Monocytes # (Auto) 0.6, Eosinophils # (Auto) 0.0, Basophils # (Auto) 0.0, Sodium Level 142, Potassium Level 4.6, Chloride Level 92L, Carbon Dioxide Level 41H, Anion Gap 9, Blood Urea Nitrogen 24H, Creatinine 0.76, Estimat Glomerular Filtration Rate > 60, BUN/Creatinine Ratio 32, Glucose Level 168H, Calcium Level 7.9L, Phosphorus Level 3.9, Magnesium Level 2.0, B-Type Natriuretic Peptide 135.7H 05/08/19 06:14: Glucometer 153H 05/08/19 12:10: Glucometer 267H 05/08/19 15:40: Glucometer 288H Microbiology 05/04/19 Blood Culture - Preliminary, Resulted No growth 05/04/19 MRSA Screen - Final, Complete MRSA not isolated Assessment/Plan Assessment/Plan (1) Acute and chronic respiratory failure Status: Acute Assessment & Plan: 05/08: On Vapotherm, will titrate as possible, MAT protocol (2) Acute on chronic heart failure Status: Acute Assessment & Plan: 05/08: Cardiology consulted and managing, appreciate recommendations Qualifiers: Qualified Codes: I50.43 - Acute on chronic combined systolic (congestive) and diastolic (congestive) heart failure (3) Anasarca Status: Chronic (4) Nonsustained ventricular tachycardia Status: Chronic Assessment & Plan: 05/08: Considering ICD placement during this admission (5) Atrial fibrillation Status: Chronic Assessment & Plan: 05/08: Patient high fall risk with multiple falls and is not a good candidate for anticoagulation Qualifiers: Qualified Codes: I48.0 - Paroxysmal atrial fibrillation (6) Volume overload Status: Acute Qualifiers: Qualified Codes: E87.70 - Fluid overload, unspecified (7) Obesity, morbid, BMI 40.0-49.9 Status: Chronic (8) DVT prophylaxis Status: Acute Assessment & Plan: Lovenox Clinical Quality Measures DVT/VTE Risk/Contraindication: Risk Factor Score Per Nursin RFS Level Per Nursing on Admit: 4+=Very High SHAHID SPENCER MD May 08, 2019 20:55 POS
--- NOTE | 2019-05-08 23:00 | NUR ---
Patient on bi-pap 15 minutes and wanted it off.
[2019-05-08 23:50] VITALS: BP 136/66
[2019-05-09] VITALS (10 sets, daily range): BP systolic 115–173; BP diastolic 59–149
[2019-05-09] MEDS: methylPREDNISolone 40 MG/ML (Solu-MEDROL) VIAL IV SCH ×4 (00:20→19:11)
[2019-05-09] MEDS: RT-ALBUTEROL/IPRATROPIUM 3 ML (DUONEB) VIAL INH SCH ×7 (02:43→22:01)
[2019-05-09 04:21] LABS: BUN/CREATININE RATIO 37; CALCIUM 7.7 MG/DL (8.5-10.1); CARBON DIOXIDE 41 MMOL/L (21-32); CHLORIDE 89 MMOL/L (98-107); CREATININE SERUM 0.67 MG/DL (0.60-1.30); GFR ESTIMATED > 60; GLUCOSE 198 MG/DL (70-105); MAGNESIUM 2.2 MG/DL (1.6-2.4); PHOSPHORUS 4.6 MG/DL (2.3-4.7); POTASSIUM 5.4 MMOL/L (3.6-5.0); SODIUM 142 MMOL/L (135-145)
[2019-05-09] MEDS: RT-BUDESONIDE NEBS 0.5 MG/2ML (PULMICORT) AMP INH SCH ×2 (06:28→22:00)
[2019-05-09 06:53] LABS: BASOPHILS % (AUTO) 0 % (0-10); EOSINOPHILS % (AUTO) 0 % (0-10); HEMATOCRIT 40 % (35-52); HEMOGLOBIN 11.2 G/DL (11.5-16.0); LYMPHOCYTES # (AUTO) 0.5 X 10^3 (1.0-4.0); LYMPHOCYTES % (AUTO) 5 % (12-44); MEAN CORPUSCULAR HEMOGLOBIN 28 PG (25-34); MEAN CORPUSCULAR HGB CONC 28 G/DL (32-36); MEAN CORPUSCULAR VOLUME 99 FL (80-99); MEAN PLATELET VOLUME 10.1 FL (7.4-10.4); MONOCYTES # (AUTO) 0.6 X 10^3 (0.0-1.0); MONOCYTES % (AUTO) 5 % (0-12); NEUTROPHILS # (AUTO) 9.3 X 10^3 (1.8-7.8); NEUTROPHILS % (AUTO) 90 % (42-75); PLATELET COUNT 143 10^3/uL (130-400); RED CELL DISTRIBUTION WIDTH 14.8 % (10.0-14.5); WHITE BLOOD COUNT 10.3 10^3/uL (4.3-11.0)
--- NOTE | 2019-05-09 07:04 | Diagnostic Imaging Report ---
INDICATION: Dyspnea. TECHNIQUE: Single view chest 4:10 AM. CORRELATION STUDY: 05/08/2019 FINDINGS: Unchanged severity cardiac enlargement. Vasculature overall slightly increased from prior study. Superimposed areas of atelectasis or infiltrate at both lung bases persisting. IMPRESSION: 1. Slight increased severity vascular congestion. 2. Bibasilar areas of infiltrate and/or atelectasis right greater than left. Dictated by: Dictated on workstation # [id number]
[2019-05-09] MEDS: CATHETER FLUSH 10 ML SYR IV SCH ×3 (07:18→22:13)
[2019-05-09] MEDS: FUROSEMIDE 40 MG/4 ML INJ (LASIX) IVP SCH ×2 (07:18→19:10)
[2019-05-09] MEDS: inSUlin ASPART (NovoLOG) 1 UNIT/0.01 ML (CHARGE PER UNIT) SQ SCH ×2 (07:18→12:00)
[2019-05-09] MEDS: ENOXAPARIN 40 MG/0.4 ML (LOVENOX) SYR SQ SCH ×2 (08:34→22:09)
[2019-05-09] MEDS: CARVEDILOL 3.125 MG (COREG) TABLET PO SCH ×2 (08:34→22:09)
[2019-05-09] MEDS: PANTOPRAZOLE 40 MG (PROTONIX) TAB PO SCH (08:34)
[2019-05-09] MEDS: ASPIRIN E.C. 81 MG (ECOTRIN) TAB PO SCH (08:34)
--- NOTE | 2019-05-09 10:27 | Cardiology Progress Note ---
Subjective Date Seen by Provider: May 09, 2019 Time Seen by Provider: 08:20 Subjective/Events-last exam Patient is in bed, no new complaints. Denies any chest pain. C/o generalized fatigue Review of Systems General: No Chills, No Night Sweats; Fatigue, Malaise; No Appetite, No Other HEENT: No Head Aches, No Visual Changes, No Eye Pain, No Ear Pain, No Dysphasia, No Sinus Congestion, No Post Nasal Drip, No Sore Throat, No Other Pulmonary: No Cough, No Pleuritic Chest Pain, No Other Cardiovascular: Chest Pain, Edema; No: Palpitations, Orthopnea, Paroxysmal Noc. Dyspnea, Lt Headedness, Other Objective-Cardiology Exam Last Set of Vital Signs Vital Signs 05/08/19 05/09/19 05/09/19 07:18 10:55 12:29 Pulse 74 Pulse Ox 90 O2 Delivery High Flow N/C O2 Flow Rate 8.00 FiO2 40 Capillary Refill : Less Than 3 Seconds I&O Intake and Output 05/09/19 00:00 Intake Total 1910 ml Output Total 4300 ml Balance -2390 ml Intake Oral 1910 ml Output Urine Total 4300 ml General: Alert, Cooperative, Mild Distress HEENT: Atraumatic, PERRLA Neck: Supple, No JVD, No Thyromegaly Lungs: Other (Diminished breath sounds bilaterally) Heart: Regular Rate Abdomen: Normal Bowel Sounds, Soft, No Tenderness, No Masses Extremities: Other (3+ pitting edema bilaterally) Skin: No Significant Lesion, Other (erythema) Neuro: Sensation Intact, Cranial Nerves 3-12 NL Psych/Mental Status: Mental Status NL, Mood NL Results Lab Laboratory Tests 05/09/19 03:40 05/09/19 06:42 A/P-Cardiology Admission Diagnosis Congestive heart failure Coronary artery disease Hypertension Hyperlipidemia Assessment/Plan Congestive heart failure, acute on chronic left ventricular diastolic dysfunction, hypertensive heart disease. Continue to monitor Cardiac catheterization was done in December 2018 in [facility] and reported having nonobstructive coronary artery disease History of recurrent nonsustained ventricular tachycardia, history of syncope in the past. Patient has an attempt for ICD placement and became severely hypoxemic during induction of sedation. Procedure was canceled. Patient was DO NOT RESUSCITATE at that time and she was placed on hospice care. I had a long discussion with the patient, she is not on DO NOT RESUSCITATE at this point and she has reversed for hospice and comfort care. We discussed the possibility of proceeding with ICD implant with intubation and she is agreeable to the procedure, planning to be done later this afternoon. COPD, restrictive lung disease, stage IV, FEV1 0.56, cannot tolerate BiPAP but she is working on it. Expressed that she is willing to use the BiPAP for 3 hours at night then take a break then use it for another 3 hours. The recommendation was at [facility] for at least 6 hours, currently on high flow oxygen. Paroxysmal atrial fibrillation, had history of recurrent falls with severe consequences, at that point it was not recommended that she be on oral anticoagulation. We will continue monitoring. History of loop recorder implantation, interrogation done yesterday revealed multiple episodes of atrial fibrillation as well as multiple episodes of nonsustained ventricular tachycardia. Type II myocardial infarction, probably secondary to hypoxemia, mild elevation in troponin, had a cardiac catheterization on January 11, 2019 in [facility] and reported normal coronaries. Continue to monitor Peripheral edema, improving slowly Hypertension, monitor blood pressure Hyperlipidemia, restart home medication Morbid obesity Patient was seen and evaluated with Renetta, examination performed, management plan was discussed, agree with the current scribed note, I made few changes to the note using Italic font I visited with the patient and her daughter, discussed in length the management plan, consulted with Dr. Ward who agreed on the plan On examination lungs had bilateral rhonchi, heart is regular Planning to proceed with ICD dual-chamber implant under general anesthesia Continue current medications Clinical Quality Measures DVT/VTE Risk/Contraindication: Risk Factor Score Per Nursin RFS Level Per Nursing on Admit: 4+=Very High Supervisory-Addendum Brief Supervisory Addendum Participated in pt care: history, MDM, physical Personally performed: exam, history, MDM Care discussed with: RENETTA CHAVIRA May 09, 2019 10:27 am LINDY TRINIDAD MD May 09, 2019 12:55 pm MAURICIO
--- NOTE | 2019-05-09 12:55 | Cardiac Procedure Note-CS/ASA ---
Pre-Procedure Note Pre-Op Procedure Note H&P Reviewed The H&P was reviewed, patient examined and no changes noted. Date H&P Reviewed: May 09, 2019 Time H&P Reviewed: 12:55 Conscious Sedation Pre-Proced Time 12:55 ASA Score 3 For ASA 3 and 4: Consider anesthesia and medical clearance. Also, for patients with a history of failed moderate sedation consider anesthesia. Airway Lungs Heart ASA score ASA 1: a normal healthy patient ASA 2: a patient with a mild systemic disease (mid diabetes, controlled hypertension, obesity x ASA 3: a patient with a severe systemic disease that limits activity (angina, COPD, prior Myocardial infarction) ASA 4: a patient with an incapacitating disease that is a constant threat to life (CHF, renal failure) ASA 5: a moribund patient not expected to survive 24 hrs. (ruptured aneurysm) ASA 6: a declared brain- patient whose organs are being harvested. For emergent operations, add the letter E after the classification Mallampati Classification Grade 3 Sedation Plan Analgesia, Amnesia, Plan communicated to team members, Discussed options with patient/fam, Discussed risks with patient/fam The patient is an appropriate candidate to undergo the planned procedure, sedation, and anesthesia. The patient immediately re-assessed prior to indication. LINDY GROVER MD May 09, 2019 12:55 pm POS
--- NOTE | 2019-05-09 13:00 | Electrophysiology Consultation ---
HPI-Cardiology Cardiology Consultation: Date of Consultation 05/09/19 Date of Admission Attending Physician Alberto Lobo MD Admitting Physician Alberto Lobo MD Consulting Physician Winston WARD MD HPI: Time Seen by a Provider: 09:00 Chief Complaint: Shortness of breath This is a 68-year-old lady who was admitted with shortness of breath with a working diagnosis of likely acute respiratory failure. Cardiac electrophysiology consultation for ventricular tachycardia. The patient was in [facility] in December and went through extensive cardiac workup. There is history of syncope and numerous nonsustained VT episodes until December 2018. Coronary angiography was done which did not reveal significant CAD. Normal LV function. EP study did not show inducible VT. The working diagnosis was idiopathic VT and verapamil was started. Of note the patient has significant history of obstructive and restrictive pulmonary disease. She has previous history of smoking but quit a few years ago. She does not have family history of premature CAD. Since her admission she has not had any history of syncope or near syncope. However she has been having increased shortness of breath associated with lower extremity swelling. She denies any chest pain. The patient was recommended an ICD however she could not tolerate propofol and went into respiratory failure therefore the procedure was postponed. Implantable loop recorder was done in December 2018. Review of Systems-Cardiology Review of Systems Constitutional: As described under HPI; No As described under HPI, No no symptoms reported, No chills, No fever, No lightheadedness Eyes: No As described under HPI, No no symptoms reported, No blindness, No blurred vision, No contact lenses, No drainage, No decreased acuity, No foreign body sensation, No pain, No vision change Ears/Nose/Throat: No As described under HPI, No no symptoms reported, No chronic hearing loss, No ear discharge, No ear pain, No nasal drainage, No ulcerations Respiratory: No no symptoms reported; As described under HPI; No As described under HPI, No cough; orthopnea; No shortness of breath, No SOB with excertion Cardiovascular: No no symptoms reported; As described under HPI; No As described under HPI, No chest pain, No edema, No irregular heart rate, No lightheadedness, No palpitations Gastrointestinal: No no symptoms reported, No As described under HPI, No abdomen distended, No abdominal pain, No blood streaked bowels, No constipation, No diarrhea, No nausea, No vomiting, No stool coloration changes Genitourinary: No As described under HPI, No burning, No dysuria, No discharge, No frequency, No flank pain, No hematuria, No urgency : Yes : No Musculoskeletal: As describe under HPI Skin: No rash, No skin related problems, No ulcerations Psychiatric/Neurological: No anxiety, No depression, No seizure, No focal weakness, No syncope Hematologic: No bleeding abnormalities All Other Systems Reviewed Negative Unless Noted: Yes [id number]-[id number] Hx Patient Social History Alcohol Use: Denies Use Recreational Drug Use: No Smoking Status: Former Smoker Recent Foreign Travel: No Recent Infectious Disease Expo: No Immunizations Up To Date Date of Influenza Vaccine: Feb 27, 2019 Past Medical History PMH As described under Assessment. Allergies and Home Medications Allergies Coded Allergies: bee venom protein (honey bee) (Verified Allergy, Unknown, 05/04/19) Home Medications Acetaminophen 325 Mg Tablet, 650 MG PO Q4H PRN for PAIN-MILD (1-4), (Reported) Aspirin 81 Mg Tablet.dr, 81 MG PO DAILY, (Reported) Atorvastatin Calcium 10 Mg Tablet, 10 MG PO DAILY, (Reported) Calcium Carbonate 300 Mg Tab.chew, 1 TAB.CHEW PO BID, (Reported) Fluticasone Propionate 16 Gm [place].susp, 2 SPRAYS NS DAILY, (Reported) Furosemide 40 Mg Tablet, 40 MG PO 0800,1200, (Reported) Hydrocodone/Acetaminophen 1 Each Tablet, 1 TAB PO Q6H PRN for PAIN-MODERATE (5- 7), (Reported) Ipratropium/Albuterol Sulfate 3 Ml Ampul.neb, 3 ML NEB Q6H PRN for SHORTNESS OF BREATH, (Reported) Loperamide HCl 2 Mg Capsule, PO UD PRN for DIARRHEA, (Reported) Nystatin 1 Each Powder.ea., TOP BID PRN for RASH, (Reported) Sennosides/Docusate Sodium 1 Each Tablet, 2 TAB PO DAILY PRN for CONSTIPATION- 6TH LINE, (Reported) Umeclidinium Brm/Vilanterol Tr 1 Each Blst.w.dev, 1 PUFF IH HS, (Reported) Verapamil HCl 80 Mg Tablet, 80 MG PO TID, (Reported) HOLD IF BP <110 Patient Home Medication List Home Medication List Reviewed: Yes Physical Exam-Cardiology Physical Exam Vital Signs/I&O 05/09/19 05/09/19 05/09/19 05/09/19 02:44 03:36 06:29 07:00 Temp 36.6 Pulse 87 79 Resp 18 B/P (MAP) 115/59 (77) Pulse Ox 96 93 91 O2 Delivery High Flow N/C High Flow N/C High Flow N/C O2 Flow Rate 8.00 9.00 8.00 05/09/19 05/09/19 05/09/19 05/09/19 08:00 08:00 10:55 12:29 Temp 36.8 Pulse 81 74 Resp 20 B/P (MAP) 132/84 (100) Pulse Ox 93 90 O2 Delivery High Flow N/C High Flow N/C High Flow N/C O2 Flow Rate 8.00 9.00 8.00 05/09/19 00:00 Intake Total 1510 ml Output Total 3800 ml Balance -2290 ml Capillary Refill : Less Than 3 Seconds Constitutional: appears stated age, AAO x 3; No apparent distress; well- developed, well-nourished HEENT: PERRL; No discharge; hearing is well preserved, oral hygience is good; No ulceration, No xanthelasmas are seen Neck: No carotid bruit; carotid pulses are 2 + bilaterally Respiratory: other (decreased air entry bilaterally. No clear wheezing noted.) Cardiovascular: regular rate-rhythm, S1 and S2 Gastrointestinal: soft, distended, audible bowel sounds; No spleenomegaly Rectal: deferred Extremities: normal range of motion, non-tender, normal inspection, pedal edema; No clubbing, No cyanosis, No significant edema Neurologic/Psychiatric: no motor/sensory deficits, alert, normal mood/affect, oriented x 3, power is 5/5 both on sides Skin: normal color, warm/dry; No rash, No ulcerations Data Review Labs Laboratory Tests 05/08/19 15:40: Glucometer 288H 05/08/19 20:40: Glucometer 294H 05/09/19 03:40: Sodium Level 142, Potassium Level 5.4H, Chloride Level 89L, Carbon Dioxide Level 41H, Anion Gap 12, Blood Urea Nitrogen 25H, Creatinine 0.67, Estimat Glomerular Filtration Rate > 60, BUN/Creatinine Ratio 37, Glucose Level 198H, Calcium Level 7.7L, Phosphorus Level 4.6, Magnesium Level 2.2 05/09/19 06:31: Glucometer 216H 05/09/19 06:42: White Blood Count 10.3, Red Blood Count 4.07L, Hemoglobin 11.2L, Hematocrit 40, Mean Corpuscular Volume 99, Mean Corpuscular Hemoglobin 28, Mean Corpuscular Hemoglobin Concent 28L, Red Cell Distribution Width 14.8H, Platelet Count 143, Mean Platelet Volume 10.1, Neutrophils (%) (Auto) 90H, Lymphocytes (%) (Auto) 5L , Monocytes (%) (Auto) 5, Eosinophils (%) (Auto) 0, Basophils (%) (Auto) 0, Neutrophils # (Auto) 9.3H, Lymphocytes # (Auto) 0.5L, Monocytes # (Auto) 0.6, Eosinophils # (Auto) 0.0, Basophils # (Auto) 0.0 05/09/19 11:08: Glucometer 318H Microbiology 05/04/19 Blood Culture - Preliminary, Resulted No growth 05/04/19 MRSA Screen - Final, Complete MRSA not isolated A/P-Cardiology Assessment/Admission Diagnosis Numerous episodes of sustained VT, Syncope, Idiopathic VT, PAF Plan Numerous episodes of sustained VT on ILR interrogation with duration > 30 seconds, working diagnosis of idiopathic VT. Echocardiogram done 04/2019 showed normal LV function. Dual chamber ICD is recommended. Negative Cath in 12/2018. This was discussed at length with the patient. The procedure was explained to the daughter as well. Risks and complication were explained in detail. 5 percent risk of complication was explained to the patient and daughter. They are willing to proceed with the procedure. We will schedule it later this afternoon with general anesthesia. Syncope, likely secondary to sustained VT. Idiopathic VT, on verapamil. PAF, will need OAC and rate controlling agent. Severe obstructive and restrictive lung disease, therefore procedure will be done under general anesthesia. Thank you for your consultation. Please call me if you have any questions. John Ward MD, FACP, FACC, FSCAI, FHRS, CCDS Interventional Cardiology Cardiac Electrophysiology Vascular Medicine and Endovascular Interventions Clinical Quality Measures DVT/VTE Risk/Contraindication: Risk Factor Score Per Nursin RFS Level Per Nursing on Admit: 4+=Very High Winston WARD MD May 09, 2019 13:00 POS
[2019-05-09] MEDS ORDERED: HEParin 1000 UNIT/ML (10ML VIAL) FOR BOLUS ONE (13:59)
[2019-05-09] MEDS ORDERED: NS IV 1000 ML 1,000 ML ONE ×2 (13:59→15:55)
[2019-05-09] MEDS ORDERED: LIDOCAINE 1% INJ 20 ML 20 ML VIAL ONE (13:59)
[2019-05-09] MEDS ORDERED: BACITRACIN INJECTION 50,000 UNIT, SODIUM CHLORIDE 0.9% IRRIGATIO 500 ML IR ONE ×2 (14:00)
--- NOTE | 2019-05-09 14:00 | NUR ---
Report given to Airam KWOK
[2019-05-09] MEDS ORDERED: proPOfol 200 MG/20 ML (DIPRIVAN) VIAL IV ONE (14:23)
[2019-05-09] MEDS ORDERED: fentaNYL INJECTION 100 MCG/2 ML AMP ONE ×2 (14:24→19:06)
[2019-05-09] MEDS ORDERED: SEVOFLURANE (ULTANE) 15 ML INHAL SOLN ONE ×2 (14:24→18:40)
[2019-05-09] MEDS ORDERED: MIDAZOLAM 2 MG/2 ML (VERSED) VIAL ONE (14:26)
[2019-05-09] MEDS ORDERED: LIDOCAINE BOLUS 100 MG/5 ML (IMS) SYR ONE (14:27)
[2019-05-09] MEDS ORDERED: LIDOCAINE 2% 20 ML (XYLOCAINE) VIAL ONE (14:28)
[2019-05-09] MEDS ORDERED: GLYCOPYRROLATE 0.2 MG/ML (ROBINUL) 2 ML VIAL ONE (14:40)
[2019-05-09] MEDS ORDERED: NEOSTIGMINE 3 MG/3 ML VIAL ONE (14:40)
[2019-05-09] MEDS ORDERED: ROCURONIUM 10 MG/ML 5 ML SYRINGE IV ONE (14:40)
[2019-05-09] MEDS ORDERED: ceFAZolin INJECTION 2,000 MG ONE (15:38)
[2019-05-09] MEDS ORDERED: NS (IVPB) 100 ML ONE (15:38)
[2019-05-09] MEDS ORDERED: DEXAMETHASONE 10 MG/ML (DECADRON) 1 ML VIAL ONE (16:32)
[2019-05-09] MEDS ORDERED: ONDANSETRON 4 MG/2 ML (SDV) Z0FRAN ONE (16:32)
[2019-05-09] MEDS ORDERED: NS IV 1000 ML 1,000 ML IV SCH (17:37)
--- NOTE | 2019-05-09 17:37 | ICD Implantation ---
Single Chamber ICD Implant DATE OF SERVICE: 05/09/2019 DUAL CHAMBER ICD IMPLANTATION REFERRING DISASTER RECOVERY MANAGER: Dev Maldonado MD CARDIAC CAR SEAT MAKER: John Ward MD INDICATION: Sustained ventricular tachycardia. PREOPERATIVE DIAGNOSES: Sustained ventricular tachycardia. POSTOPERATIVE DIAGNOSES: Sustained ventricular tachycardia, successful dual- chamber ICD implantation. Implantable loop recorder explantation. HISTORY: This is a 68-year-old lady with idiopathic VT and history of syncope. Implantable loop recorder shows numerous episodes of sustained ventricular tachycardia with ventricular tachycardia episodes over 30 seconds duration. Coronary angiography done in December 2018 showed patent epicardial coronary arteries. Normal LV function on echocardiogram. Due to severe restrictive/obstructive lung disease, procedure will be done under general anesthesia. ICD implantation is recommended. PROCEDURE PERFORMED: 1. Dual chamber ICD implantation. 2. Implantable loop recorder explantation. 3. DFT testing. COMPLICATIONS: None. ESTIMATED BLOOD LOSS: 20 mL. SPECIMENS: None. ANESTHESIA: Gen. anesthesia. Please see the anesthesia report for further details. ORAL ANTICOAGULATION: None. FLUOROSCOPY TIME: 5.2 minutes. FLUOROSCOPY DOSE: 134 mgy. CONTRAST DOSE: None. PROCEDURE DETAILS: After all the questions were answered, an informed consent was taken. All the risks and complication were explained in detail. The patient was brought to the EP lab. Patient was intubated and was under general anesthesia during the procedure. Please refer to the anesthesia report. The patient's right and left chest was prepped and draped in the usual sterile fashion. A 2-inch horizontal incision was made 1 cm below the clavicle and dissection carried down to the pectoralis fascia. IV antibiotics were administered prior to first incision. Under fluoroscopic guidance, access was gained in the axillary vein twice and two regular J-wires were placed. We then introduced a sheath into the axillary vein. A ICD lead was inserted. This is a single-coiled ICD lead. The RV lead was inserted across the tricuspid valve to an apical septal portion of the RV. The lead position was checked in SWEDISH and RODRIGUEZ view. The screw was deployed and lead connected to the cobol programmer. Good sensing and pacing thresholds were obtained. Diaphragmatic pacing was ruled out. The lead was secured with 2-0 Vicryl nonabsorbable sutures. The lead was secured to the underlying muscle and fascia. Using the second J-wire another sheath was placed. We then advanced a right atrial lead and under fluoroscopic guidance the screw was deployed in the right atrial appendage. Good sensing and pacing thresholds were obtained. Diaphragmatic pacing was ruled out. The lead was secured with 2 Vicryl nonabsorbable sutures. The lead was secured to the underlying muscle and fascia. We then took an ICD generator and the lead was connected to the device in a hermetic fashion. The device and it was placed in the pocket. Aggressive irrigation with normal saline solution was done. Interrogation of the device revealed good integrity of the leads and connection. The wound was closed using 2 layers. The first layer was an interrupted 2-0 Vicryl. The second layer was an uninterrupted 4-0 Vicryl suture. Half inch Steri-Strips and a small dressing was then applied to the wound. DFT testing was done with anesthesia support. The induction mechanism was a T- shock. Ventricular fibrillation was induced. Appropriate sensing and single 25 J shock terminated the tachycardia. Implantable loop recorder was explanted under sterile conditions. DEVICE INFORMATION: ICD [id number] EVERA MRI S IS-1/DF 4 GLOB Model number DDM C3 D4, serial number [id number] [id number]. Medtronic. Right atrial lead model number 669126, length 52, serial number BB [id number], Medtronic. Right ventricular lead model number 6935M [id number], length 62, serial number [id number], [employer]onic. Explanted implantable loop recorder, LINQ device. Serial number are as [id number]. INTRAOPERATIVE DEVICE TESTING: Right atrial capture threshold 0.5 V at 0.5 ms, impedance 543 ohms. P wave 4.1 mV. Right ventricular capture threshold 0.3 V at 0.5 ms. Impedance 662 ohms. R- wave 10.6 mV. DEVICE INTERROGATION IMMEDIATELY POSTOP: Right atrial capture threshold 0.25 V at 0.5 ms. P wave 2.4 mV. Pacing impedance 456 ohms. Right ventricular capture threshold 0.5 V is 0.5 ms. R wave 5.8 mV. Pacing impedance 513 ohms. PLAN: The patient will be transferred to the ICU on the ventilator. Decision to extubate will be deferred to anesthesia and pulmonology. We will continue with two more dosages of IV antibiotics. We will check a chest x-ray and interrogate the device in the morning. An EKG will be done as well. John Ward MD, [facility] Cardiac Electrophysiology Winston WARD MD May 09, 2019 5:37 pm POS
[2019-05-09] MEDS ORDERED: PATIENT MAY USE OWN MEDS, ALL PO SCH (17:45)
[2019-05-09] MEDS ORDERED: PROPOFOL DRIP (ICU) 100 ML IV ONE (18:21)
--- NOTE | 2019-05-09 19:00 | NUR ---
TEXTED DR VALENTINE NO RESPONSE, STILL NO RESPONSE AT 2018, RN REPORTS VT TO 450 MLS, Addendum: 05/09/19 at 2019 by EDMOND RICO RT Amended: Links added.
--- NOTE | 2019-05-09 19:09 | Diagnostic Imaging Report ---
INDICATION: ICD placement. TECHNIQUE: Single frontal view of the chest. COMPARISON: Radiographs from the same day. FINDINGS: The endotracheal tube is approximately 5 cm from the charlie. There is mild cardiomegaly with central vascular congestion. There are mild right basilar airspace opacities. Overall aeration appears mildly improved. No pneumothorax is seen post left-sided AICD placement. The AICD leads are in expected position. IMPRESSION: 1. No pneumothorax post left AICD placement. 2. The endotracheal tube is 5 cm from the charlie. 3. Stable cardiomegaly. 4. Mild central vascular congestion and right basilar airspace opacities. Overall aeration appears mildly improved. Dictated by: Dictated on workstation # [id number]
[2019-05-09] MEDS ORDERED: fentaNYL INJECTION 100 MCG/2 ML AMP IVP PRN (19:15)
--- NOTE | 2019-05-09 19:44 | Progress Note ---
Subjective Subjective/Events-last exam Patient sitting up in bed w/o concerns this AM. States that she is nervous about the procedure because they have to lay her flat. Currently NPO. Review of Systems Pulmonary: Dyspnea Cardiovascular: Orthopnea; No: Chest Pain, Palpitations Gastrointestinal: No: Nausea, Vomiting, Abdominal Pain, Diarrhea, Constipation Neurological: Weakness, Incoordination Objective Exam Last Set of Vital Signs Vital Signs Date Time Temp Pulse Resp B/P (MAP) Pulse Ox O2 Delivery O2 Flow Rate FiO2 05/09/19 19:13 36.04587 83 18 173/143 94 Mechanical Ventilator 60.00 05/09/19 18:56 60 Capillary Refill : Less Than 3 Seconds I&O Intake and Output 05/09/19 00:00 Intake Total 1910 ml Output Total 4300 ml Balance -2390 ml Intake Oral 1910 ml Output Urine Total 4300 ml General: Alert, Oriented X3, Cooperative, Mild Distress (with minimal exertion) Lungs: Other (Bilateral Rhonchi, increased work of breathing with minimal exertion) Heart: Regular Rate, No Murmurs Abdomen: Normal Bowel Sounds, Soft, No Tenderness, No Masses Extremities: Other (2+ pitting edema bilaterally) Skin: No Rashes, No Breakdown Psych/Mental Status: Mental Status NL, Mood NL Results/Procedures Lab Laboratory Tests 05/08/19 20:40: Glucometer 294H 05/09/19 03:40: Sodium Level 142, Potassium Level 5.4H, Chloride Level 89L, Carbon Dioxide Level 41H, Anion Gap 12, Blood Urea Nitrogen 25H, Creatinine 0.67, Estimat Glomerular Filtration Rate > 60, BUN/Creatinine Ratio 37, Glucose Level 198H, Calcium Level 7.7L, Phosphorus Level 4.6, Magnesium Level 2.2 05/09/19 06:31: Glucometer 216H 05/09/19 06:42: White Blood Count 10.3, Red Blood Count 4.07L, Hemoglobin 11.2L, Hematocrit 40, Mean Corpuscular Volume 99, Mean Corpuscular Hemoglobin 28, Mean Corpuscular Hemoglobin Concent 28L, Red Cell Distribution Width 14.8H, Platelet Count 143, Mean Platelet Volume 10.1, Neutrophils (%) (Auto) 90H, Lymphocytes (%) (Auto) 5L , Monocytes (%) (Auto) 5, Eosinophils (%) (Auto) 0, Basophils (%) (Auto) 0, Neutrophils # (Auto) 9.3H, Lymphocytes # (Auto) 0.5L, Monocytes # (Auto) 0.6, Eosinophils # (Auto) 0.0, Basophils # (Auto) 0.0 05/09/19 11:08: Glucometer 318H 05/09/19 19:20: Triglycerides Level 177H Microbiology 05/04/19 Blood Culture - Preliminary, Resulted No growth 05/04/19 MRSA Screen - Final, Complete MRSA not isolated Assessment/Plan Assessment/Plan (1) Acute and chronic respiratory failure Status: Acute Assessment & Plan: 05/08: On Vapotherm, will titrate as possible, MAT protocol 05/09: Patient will be intubated for procedure and will have transfer to ICU after procedure (2) Acute on chronic heart failure Status: Acute Assessment & Plan: 05/08: Cardiology consulted and managing, appreciate recommendations Qualifiers: Qualified Codes: I50.43 - Acute on chronic combined systolic (congestive) and diastolic (congestive) heart failure (3) Anasarca Status: Chronic Assessment & Plan: 05/09: Lasix BID, continue to monitor renal function (4) Nonsustained ventricular tachycardia Status: Chronic Assessment & Plan: 05/08: Considering ICD placement during this admission 05/09: Plan for placement today (5) Atrial fibrillation Status: Chronic Assessment & Plan: 05/08: Patient high fall risk with multiple falls and is not a good candidate for anticoagulation Qualifiers: Qualified Codes: I48.0 - Paroxysmal atrial fibrillation (6) Volume overload Status: Acute Qualifiers: Qualified Codes: E87.70 - Fluid overload, unspecified (7) Obesity, morbid, BMI 40.0-49.9 Status: Chronic (8) DVT prophylaxis Status: Acute Assessment & Plan: Lovenox Clinical Quality Measures DVT/VTE Risk/Contraindication: Risk Factor Score Per Nursin RFS Level Per Nursing on Admit: 4+=Very High SHAHID SPENCER MD May 09, 2019 19:44 POS
[2019-05-09] MEDS: DEXMEDETOMIDINE INJECTION 1,000 MCG in NS (IVPB) 240 ML IV SCH (20:40)
[2019-05-09] MEDS: PROPOFOL DRIP (ICU) 100 ML IV SCH (20:44)
[2019-05-09 22:01] LABS: ABG BASE EXCESS 20.5 MMOL/L (-2.5-2.5); ABG OXYGEN SATURATION 96 % (94-100); ABG PCO2 59 MMHG (35-45); ABG PO2 76 MMHG (79-93); ABG TCO2 47.6 MMOL/L (21.0-31.0)
[2019-05-09 22:04] LABS: ALLENS TEST POSITIVE; INSPIRED O2 50; PATIENT TEMP 37; VENTILATOR YES
[2019-05-09] MEDS ORDERED: ceFAZolin INJECTION 1,000 MG ONE (22:10)
[2019-05-09] MEDS ORDERED: WATER (STERILE) FOR INJECTION 10 ML ONE (22:10)
[2019-05-09] MEDS: ceFAZolin INJECTION 1,000 MG in WATER (STERILE) FOR INJECTION 10 ML IV SCH (22:13)
[2019-05-10] VITALS (30 sets, daily range): BP systolic 96–147; BP diastolic 54–108
[2019-05-10] MEDS: methylPREDNISolone 40 MG/ML (Solu-MEDROL) VIAL IV SCH ×5 (00:15→23:49)
[2019-05-10] MEDS: inSUlin ASPART (NovoLOG) 1 UNIT/0.01 ML (CHARGE PER UNIT) SC SCH ×5 (00:18→23:55)
[2019-05-10] MEDS: RT-ALBUTEROL/IPRATROPIUM 3 ML (DUONEB) VIAL INH SCH ×6 (01:53→22:26)
--- NOTE | 2019-05-10 01:58 | NUR ---
, FOUND RR ETCO2 16 Addendum: 05/10/19 at 0158 by EDMOND RICO RT Amended: Links added.
[2019-05-10 03:16] LABS: ABG BASE EXCESS 19.7 MMOL/L (-2.5-2.5); ABG OXYGEN SATURATION 94 % (94-100); ABG PH 7.39 (7.37-7.43); ABG PO2 84 MMHG (79-93); ABG TCO2 48.3 MMOL/L (21.0-31.0)
[2019-05-10 03:17] LABS: ABG PCO2 78 MMHG (35-45); ALLENS TEST POSITIVE; INSPIRED O2 50; PATIENT TEMP 37.2; VENTILATOR YES
[2019-05-10] MEDS: PROPOFOL DRIP (ICU) 100 ML IV SCH ×5 (03:27→13:17)
[2019-05-10 04:37] LABS: BASOPHILS % (AUTO) 0 % (0-10); EOSINOPHILS % (AUTO) 0 % (0-10); HEMATOCRIT 36 % (35-52); HEMOGLOBIN 10.5 G/DL (11.5-16.0); LYMPHOCYTES # (AUTO) 0.5 X 10^3 (1.0-4.0); LYMPHOCYTES % (AUTO) 6 % (12-44); MEAN CORPUSCULAR HEMOGLOBIN 27 PG (25-34); MEAN CORPUSCULAR HGB CONC 29 G/DL (32-36); MEAN CORPUSCULAR VOLUME 93 FL (80-99); MEAN PLATELET VOLUME 10.9 FL (7.4-10.4); MONOCYTES # (AUTO) 0.7 X 10^3 (0.0-1.0); MONOCYTES % (AUTO) 10 % (0-12); NEUTROPHILS # (AUTO) 6.4 X 10^3 (1.8-7.8); NEUTROPHILS % (AUTO) 84 % (42-75); PLATELET COUNT 126 10^3/uL (130-400); RED CELL DISTRIBUTION WIDTH 14.5 % (10.0-14.5); WHITE BLOOD COUNT 7.6 10^3/uL (4.3-11.0)
[2019-05-10 04:57] LABS: ALANINE AMINOTRANSFERASE 19 U/L (0-55); ALBUMIN 3.5 GM/DL (3.2-4.5); ALKALINE PHOSPHATASE 63 U/L (40-136); BILIRUBIN,TOTAL 0.2 MG/DL (0.1-1.0); BUN/CREATININE RATIO 31; CALCIUM 7.7 MG/DL (8.5-10.1); CARBON DIOXIDE 36 MMOL/L (21-32); CHLORIDE 92 MMOL/L (98-107); CREATININE SERUM 0.75 MG/DL (0.60-1.30); GFR ESTIMATED > 60; GLUCOSE 194 MG/DL (70-105); POTASSIUM 4.8 MMOL/L (3.6-5.0); SODIUM 141 MMOL/L (135-145); TOTAL PROTEIN 5.6 GM/DL (6.4-8.2)
--- NOTE | 2019-05-10 05:06 | Pulmonary Progress Note ---
Subjective Time Seen by a Provider: 06:25 Subjective/Events-last exam S/p cardiac cath. Pt required prolonged intubation after cath. Sepsis Event Evaluation Height, Weight, BMI Height: '" Weight: lbs. oz. kg; 48.00 BMI Method: Exam Exam Vital Signs Date Time Temp Pulse Resp B/P (MAP) Pulse Ox O2 Delivery O2 Flow Rate FiO2 05/10/19 04:27 Mechanical Ventilator 70.00 05/10/19 04:00 Mechanical Ventilator 50 05/10/19 03:27 90 118/63 05/10/19 03:00 74 15 112/56 (74) 91 Mechanical Ventilator 50.00 05/10/19 02:00 77 16 121/68 (85) 92 Mechanical Ventilator 50.00 05/10/19 01:53 77 16 92 50 05/10/19 01:00 70 15 117/65 (82) 92 Mechanical Ventilator 50.00 05/10/19 00:50 74 05/10/19 00:00 37.1 05/10/19 00:00 74 15 111/67 (82) 90 Mechanical Ventilator 50.00 05/10/19 00:00 Mechanical Ventilator 50 05/09/19 23:00 93 16 128/68 (88) 90 Mechanical Ventilator 50.00 05/09/19 22:03 90 22 92 50 05/09/19 22:00 85 17 158/99 (118) 93 Mechanical Ventilator 50.00 05/09/19 21:15 Mechanical Ventilator 50.00 05/09/19 21:00 37.0 05/09/19 21:00 90 151/93 (112) 93 Mechanical Ventilator 60.00 05/09/19 20:44 99 154/100 05/09/19 20:00 36.4 05/09/19 20:00 Mechanical Ventilator 60 05/09/19 20:00 101 155/101 (119) 93 Mechanical Ventilator 60.00 05/09/19 19:13 36.21125 83 18 173/143 94 Mechanical Ventilator 60.00 05/09/19 19:00 87 18 173/149 (157) 93 Mechanical Ventilator 60.00 05/09/19 18:56 70 24 93 60 05/09/19 18:45 90 05/09/19 14:25 36.7 71 19 161/89 (113) 93 High Flow N/C 8.00 05/09/19 13:47 92 High Flow N/C 9.00 05/09/19 12:29 74 05/09/19 10:55 90 High Flow N/C 8.00 05/09/19 08:00 36.8 81 20 132/84 (100) 93 High Flow N/C 9.00 05/09/19 08:00 High Flow N/C 8.00 05/09/19 07:00 79 05/09/19 06:29 91 High Flow N/C 8.00 I & O 05/10/19 07:00 Output Total 400 ml Balance -400 ml Height & Weight Height: '" Weight: lbs. oz. kg; 48.00 BMI Method: General Appearance: WD/WN, Chronically ill, Mild Distress, Obese, Other (sedated on vent) HEENT: PERRL/EOMI, Normal ENT Inspection Neck: Non Tender, Supple Respiratory: Normal Breath Sounds, Decreased Breath Sounds Cardiovascular: Regular Rate, Rhythm Capillary Refill: Less Than 3 Seconds Gastrointestinal: non tender, soft Extremity: Pedal Edema Skin: Normal Color, Warm/Dry Lymphatic: No Adenopathy Results Lab Laboratory Tests 05/09/19 03:40 05/09/19 06:42 05/10/19 03:30 Assessment/Plan Assessment/Plan Acute on chronic respiratory failure -sedated on vent -Give 80mg of Lasix x 1 secondary to high 02 requirements. -May attempt vent weaning later today after lasix or tomorrow morning -C02 on ABG is 90 -Pt will benefit from home vent to mask. -Pt is high risk for secondary to chronic respiratory failure -PT is approved for home vent to mask -Continue solumedrol for now History of recurrent nonsustained ventricular tachycardia, history of syncope in the past. Patient has an attempt for ICD placement and became severely hypoxemic during induction of sedation. Procedure was canceled. Pulmonary edema and bilateral pleural effusions COPDAE -solumedrol -SVNs with duoneb Q 4 and add pulmicort BID CHFAE -acute on chronic left ventricular diastolic dysfunction -Lasix -Echo -Cardiology following -Cardiac catheterization was done in December 2018 in [facility] and reported having nonobstructive coronary artery disease Obesity OHS -Will benefit from home vent to mask Anemia -Monitor -Check occult stool Paroxysmal atrial fibrillation Peripheral edema, improving slowly Hypertension Hyperlipidemia Morbid obesity PANKAJ VALENTINE DO May 10, 2019 05:06 POS
[2019-05-10] MEDS ORDERED: FUROSEMIDE 40 MG/4 ML INJ (LASIX) IVP ONE (05:15)
[2019-05-10] MEDS: POTASSIUM CL 10MEQ/50ML IVPB 50 ML IV SCH (05:20)
[2019-05-10] MEDS: MAGNESIUM 1 GM/100 ML IVPB 100 ML IV SCH (05:20)
[2019-05-10] MEDS: KCL 20 MEQ TAB (K-DUR) PO SCH (05:21)
[2019-05-10] MEDS: FUROSEMIDE 40 MG/4 ML INJ (LASIX) IVP SCH ×2 (05:21→18:24)
[2019-05-10] MEDS ORDERED: DEXMEDETOMIDINE INJECTION 1,000 MCG in NS (IVPB) 240 ML IV SCH (05:30)
[2019-05-10] MEDS ORDERED: ceFAZolin INJECTION 1,000 MG ONE ×2 (05:47→14:19)
[2019-05-10] MEDS ORDERED: WATER (STERILE) FOR INJECTION 10 ML ONE ×2 (05:47→14:19)
[2019-05-10] MEDS: ceFAZolin INJECTION 1,000 MG in WATER (STERILE) FOR INJECTION 10 ML IV SCH ×2 (05:51→14:26)
[2019-05-10] MEDS: CATHETER FLUSH 10 ML SYR IV SCH ×2 (05:54→14:26)
[2019-05-10] MEDS: RT-BUDESONIDE NEBS 0.5 MG/2ML (PULMICORT) AMP INH SCH ×2 (07:33→19:41)
--- NOTE | 2019-05-10 07:37 | Cardiology Progress Note ---
Subjective Date Seen by Provider: May 10, 2019 Time Seen by Provider: 07:34 Subjective/Events-last exam Patient is sedated and intubated, requiring high oxygen on the vent, I discussed in length the management plan with Dr. Hull, patient will need to have weaning and extubation Review of Systems General: Other (Unable to provide review of systems) Objective-Cardiology Exam Last Set of Vital Signs Vital Signs 05/10/19 05/10/19 05/10/19 05/10/19 00:00 04:00 06:00 06:40 Temp 37.1 Pulse 86 Resp 16 B/P (MAP) 134/75 Pulse Ox 92 O2 Delivery Mechanical Ventilator O2 Flow Rate 80.00 FiO2 50 Capillary Refill : Less Than 3 Seconds I&O Intake and Output 05/10/19 00:00 Intake Total 200 ml Output Total 750 ml Balance -550 ml Intake Oral 200 ml Output Urine Total 750 ml General: Moderate Distress, Other (Sedated and intubated) HEENT: Atraumatic, PERRLA Neck: Supple, No JVD, No Thyromegaly Lungs: Other (Bilateral Rhonchi, increased work of breathing with minimal exertion) Heart: Regular Rate, Normal S1, Normal S2, No Murmurs Abdomen: Normal Bowel Sounds, Soft, No Tenderness, No Masses Extremities: Other (2+ pitting edema bilaterally) Skin: No Rashes, No Breakdown Neuro: Sensation Intact, Cranial Nerves 3-12 NL, Other (Sedated and intubated) Psych/Mental Status: Mood NL, Other (Sedated and intubated) Results Lab Laboratory Tests 05/10/19 03:30 Laboratory Tests Test 05/09/19 11:08 05/09/19 19:20 05/09/19 21:54 05/09/19 23:40 Range/Units Glucometer 318 H 255 H 70-110 MG/DL Triglycerides Level 177 H <150 MG/DL Blood Gas Puncture Site RIGHT RADIAL Blood Gas Patient Temperature 37 Arterial Blood pH 7.50 H 7.37-7.43 Arterial Blood Partial Pressure CO2 59 H 35-45 MMHG Arterial Blood Partial Pressure O2 76 L 79-93 MMHG Arterial Blood HCO3 46 *H 23-27 MMOL/L Arterial Blood Total CO2 47.6 H 21.0-31.0 MMOL/L Arterial Blood Oxygen Saturation 96 94-100 % Arterial Blood Base Excess 20.5 H -2.5-2.5 MMOL/L Nirmal Test POSITIVE Blood Gas Ventilator Setting YES Blood Gas Inspired Oxygen 50 Test 05/10/19 00:16 05/10/19 03:10 05/10/19 03:30 Range/Units Glucometer 259 H 70-110 MG/DL Blood Gas Puncture Site RIGHT RADIAL Blood Gas Patient Temperature 37.2 Arterial Blood pH 7.39 7.37-7.43 Arterial Blood Partial Pressure CO2 78 *H 35-45 MMHG Arterial Blood Partial Pressure O2 84 79-93 MMHG Arterial Blood HCO3 46 *H 23-27 MMOL/L Arterial Blood Total CO2 48.3 H 21.0-31.0 MMOL/L Arterial Blood Oxygen Saturation 94 94-100 % Arterial Blood Base Excess 19.7 H -2.5-2.5 MMOL/L Nirmal Test POSITIVE Blood Gas Ventilator Setting YES Blood Gas Inspired Oxygen 50 White Blood Count 7.6 4.3-11.0 10^3/uL Red Blood Count 3.84 L 4.35-5.85 10^6/uL Hemoglobin 10.5 L 11.5-16.0 G/DL Hematocrit 36 35-52 % Mean Corpuscular Volume 93 80-99 FL Mean Corpuscular Hemoglobin 27 25-34 PG Mean Corpuscular Hemoglobin Concent 29 L 32-36 G/DL Red Cell Distribution Width 14.5 10.0-14.5 % Platelet Count 126 L 130-400 10^3/uL Mean Platelet Volume 10.9 H 7.4-10.4 FL Neutrophils (%) (Auto) 84 H 42-75 % Lymphocytes (%) (Auto) 6 L 12-44 % Monocytes (%) (Auto) 10 0-12 % Eosinophils (%) (Auto) 0 0-10 % Basophils (%) (Auto) 0 0-10 % Neutrophils # (Auto) 6.4 1.8-7.8 X 10^3 Lymphocytes # (Auto) 0.5 L 1.0-4.0 X 10^3 Monocytes # (Auto) 0.7 0.0-1.0 X 10^3 Eosinophils # (Auto) 0.0 0.0-0.3 10^3/uL Basophils # (Auto) 0.0 0.0-0.1 10^3/uL Sodium Level 141 135-145 MMOL/L Potassium Level 4.8 3.6-5.0 MMOL/L Chloride Level 92 L 98-107 MMOL/L Carbon Dioxide Level 36 H 21-32 MMOL/L Anion Gap 13 5-14 MMOL/L Blood Urea Nitrogen 23 H 7-18 MG/DL Creatinine 0.75 0.60-1.30 MG/DL Estimat Glomerular Filtration Rate > 60 BUN/Creatinine Ratio 31 Glucose Level 194 H 70-105 MG/DL Calcium Level 7.7 L 8.5-10.1 MG/DL Corrected Calcium 8.1 L 8.5-10.1 MG/DL Phosphorus Level 4.0 2.3-4.7 MG/DL Magnesium Level 2.0 1.6-2.4 MG/DL Total Bilirubin 0.2 0.1-1.0 MG/DL Aspartate Amino Transf (AST/SGOT) 13 5-34 U/L Alanine Aminotransferase (ALT/SGPT) 19 0-55 U/L Alkaline Phosphatase 63 40-136 U/L B-Type Natriuretic Peptide 55.3 <100.0 PG/ML Total Protein 5.6 L 6.4-8.2 GM/DL Albumin 3.5 3.2-4.5 GM/DL A/P-Cardiology Admission Diagnosis Congestive heart failure Coronary artery disease Hypertension Hyperlipidemia Assessment/Plan Acute on chronic respiratory failure, ventilatory dependent, patient was intubated electively prior to the ICD and DFT implant, difficult weaning, discussed with Dr. Hull and will attempt weaning her at this afternoon Recurrent nonsustained ventricular tachycardia, history of syncope, paroxysmal atrial fibrillation, had a loop recorder extracted, status post dual-chamber ICD implant by Dr. Ward, DFT testing. Site is healing well. Congestive heart failure, acute on chronic left ventricular diastolic dysfunction, hypertensive heart disease. Continue to monitor Cardiac catheterization was done in December 2018 in [facility] and reported having nonobstructive coronary artery disease COPD, restrictive lung disease, stage IV, FEV1 0.56, currently ventilator dependent, Dr. Hull is managing Paroxysmal atrial fibrillation, had history of recurrent falls with severe consequences, at that point it was not recommended that she be on oral anticoagulation. We will continue monitoring. Type II myocardial infarction, probably secondary to hypoxemia, mild elevation in troponin, had a cardiac catheterization on January 11, 2019 in [facility] and reported normal coronaries. Continue to monitor Peripheral edema, improving slowly Hypertension, monitor blood pressure Hyperlipidemia, restart home medication Morbid obesity Clinical Quality Measures DVT/VTE Risk/Contraindication: Risk Factor Score Per Nursin RFS Level Per Nursing on Admit: 4+=Very High LINDY GROVER MD May 10, 2019 07:37 POS
--- NOTE | 2019-05-10 08:28 | Occ Therapy Progress Note ---
Therapy Progress Note OT order received, chart reviewed. Pt. is currently sedated and on ventilator support. OT will continue to monitor and evaluate when medically stable. Thank you for this referral. [id number] MARVIN PATEL OT May 10, 2019 08:28 POS
--- NOTE | 2019-05-10 08:50 | Cardiology Progress Note ---
Cardiology SOAP Progress Note Subjective: Intubated/ventilated Objective: I&O/Vital Signs 05/09/19 05/09/19 05/09/19 05/10/19 22:00 22:03 23:00 00:00 Pulse 85 90 93 Resp 17 22 16 B/P (MAP) 158/99 (118) 128/68 (88) Pulse Ox 93 92 90 O2 Delivery Mechanical Ventilator Mechanical Ventilator Mechanical Ventilator O2 Flow Rate 50.00 50.00 FiO2 50 50 05/10/19 05/10/19 05/10/19 05/10/19 00:00 00:00 00:50 01:00 Temp 37.1 Pulse 74 74 70 Resp 15 15 B/P (MAP) 111/67 (82) 117/65 (82) Pulse Ox 90 92 O2 Delivery Mechanical Ventilator Mechanical Ventilator O2 Flow Rate 50.00 50.00 05/10/19 05/10/19 05/10/19 05/10/19 01:53 02:00 03:00 03:27 Pulse 77 77 74 90 Resp 16 16 15 B/P (MAP) 121/68 (85) 112/56 (74) 118/63 Pulse Ox 92 92 91 O2 Delivery Mechanical Ventilator Mechanical Ventilator O2 Flow Rate 50.00 50.00 FiO2 50 05/10/19 05/10/19 05/10/19 05/10/19 04:00 04:00 04:27 05:00 Pulse 76 73 Resp 16 B/P (MAP) 126/80 (95) 140/81 (100) Pulse Ox 91 91 O2 Delivery Mechanical Ventilator Mechanical Ventilator Mechanical Ventilator Mechanical Ventilator O2 Flow Rate 50.00 70.00 70.00 FiO2 50 05/10/19 05/10/19 05/10/19 05/10/19 05:57 06:00 06:40 07:00 Pulse 77 86 80 B/P (MAP) 141/81 (101) 134/75 132/91 (105) Pulse Ox 92 92 O2 Delivery Mechanical Ventilator Mechanical Ventilator Mechanical Ventilator O2 Flow Rate 80.00 80.00 80.00 05/10/19 05/10/19 05/10/19 05/10/19 07:00 07:33 07:51 08:00 Pulse 84 88 88 93 Resp 16 16 15 B/P (MAP) 96/70 (79) Pulse Ox 92 92 92 O2 Delivery Mechanical Ventilator O2 Flow Rate 80.00 FiO2 80 80 05/10/19 09:00 Pulse 80 Resp 16 B/P (MAP) 113/66 (82) Pulse Ox 92 O2 Delivery Mechanical Ventilator O2 Flow Rate 80.00 05/10/19 00:00 Output Total 400 ml Balance -400 ml Constitutional: appears stated age; No apparent distress; well-developed, well- nourished, other (intubated/ventilated) Respiratory: other (decreased air entry bilaterally. No clear wheezing noted.) Cardiovascular: regular rate-rhythm, S1 and S2 Gastrointestional: soft, distended, audible bowel sounds; No spleenomegaly Extremities: normal range of motion, non-tender, normal inspection, pedal edema; No clubbing, No cyanosis, No significant edema Neurologic/Psychiatric: other (intubated/ventilated) Skin: normal color, warm/dry; No rash, No ulcerations Results/Procedures: Labs Laboratory Tests 05/09/19 11:08: Glucometer 318H 05/09/19 19:20: Triglycerides Level 177H 05/09/19 21:54: Blood Gas Puncture Site RIGHT RADIAL, Blood Gas Patient Temperature 37, Arterial Blood pH 7.50H, Arterial Blood Partial Pressure CO2 59H, Arterial Blood Partial Pressure O2 76L, Arterial Blood HCO3 46*H, Arterial Blood Total CO2 47.6H, Arterial Blood Oxygen Saturation 96, Arterial Blood Base Excess 20.5H, Nirmal Test POSITIVE, Blood Gas Ventilator Setting YES, Blood Gas Inspired Oxygen 50 05/09/19 23:40: Glucometer 255H 05/10/19 00:16: Glucometer 259H 05/10/19 03:10: Blood Gas Puncture Site RIGHT RADIAL, Blood Gas Patient Temperature 37.2, Arterial Blood pH 7.39, Arterial Blood Partial Pressure CO2 78*H, Arterial Blood Partial Pressure O2 84, Arterial Blood HCO3 46*H, Arterial Blood Total CO2 48.3H , Arterial Blood Oxygen Saturation 94, Arterial Blood Base Excess 19.7H, Nirmal Test POSITIVE, Blood Gas Ventilator Setting YES, Blood Gas Inspired Oxygen 50 05/10/19 03:30: White Blood Count 7.6, Red Blood Count 3.84L, Hemoglobin 10.5L, Hematocrit 36, Mean Corpuscular Volume 93, Mean Corpuscular Hemoglobin 27, Mean Corpuscular Hemoglobin Concent 29L, Red Cell Distribution Width 14.5, Platelet Count 126L, Mean Platelet Volume 10.9H, Neutrophils (%) (Auto) 84H, Lymphocytes (%) (Auto) 6L, Monocytes (%) (Auto) 10, Eosinophils (%) (Auto) 0, Basophils (%) (Auto) 0, Neutrophils # (Auto) 6.4, Lymphocytes # (Auto) 0.5L, Monocytes # (Auto) 0.7, Eosinophils # (Auto) 0.0, Basophils # (Auto) 0.0, Sodium Level 141, Potassium Level 4.8, Chloride Level 92L, Carbon Dioxide Level 36H, Anion Gap 13, Blood Urea Nitrogen 23H, Creatinine 0.75, Estimat Glomerular Filtration Rate > 60, BUN/Creatinine Ratio 31, Glucose Level 194H, Calcium Level 7.7L, Corrected Calcium 8.1L, Phosphorus Level 4.0, Magnesium Level 2.0, Total Bilirubin 0.2, Aspartate Amino Transf (AST/SGOT) 13, Alanine Aminotransferase (ALT/SGPT) 19, Alkaline Phosphatase 63, B-Type Natriuretic Peptide 55.3, Total Protein 5.6L, Albumin 3.5 Microbiology 05/04/19 Blood Culture - Final, Complete No growth 05/04/19 MRSA Screen - Final, Complete MRSA not isolated A/P: Assessment/Dx: Numerous episodes of sustained VT, Syncope, Idiopathic VT, PAF Plan: Numerous episodes of sustained VT on ILR interrogation with duration > 30 seconds, working diagnosis of idiopathic VT. Echocardiogram done 04/2019 showed normal LV function. Negative Cath in 12/2018. Dual-chamber ICD placed on 05/09/2019. Implantable loop recorder was removed as well. Patient tolerated procedure well and did not have any complication. Postprocedure chest x-ray did not show any pneumothorax. Atrial paced rhythm this morning. Device interrogation pending. Syncope, likely secondary to sustained VT. Idiopathic VT, on verapamil. PAF, will need OAC and rate controlling agent. Severe obstructive and restrictive lung disease, intubated/ventilated. Defer to Dr. Hull and the primary team. Thank you for your consultation. Please call me if you have any questions. John Ward MD, FACP, FACC, FSCAI, FHRS, CCDS Interventional Cardiology Cardiac Electrophysiology Vascular Medicine and Endovascular Interventions Winston WARD MD May 10, 2019 08:50 POS
[2019-05-10] MEDS: ASPIRIN E.C. 81 MG (ECOTRIN) TAB PO SCH (08:51)
[2019-05-10] MEDS: CARVEDILOL 3.125 MG (COREG) TABLET PO SCH ×2 (08:51→20:33)
[2019-05-10] MEDS: PANTOPRAZOLE 40 MG (PROTONIX) VIAL IV SCH (08:51)
[2019-05-10] MEDS: ENOXAPARIN 40 MG/0.4 ML (LOVENOX) SYR SQ SCH ×2 (08:51→20:33)
[2019-05-10] MEDS ORDERED: ENOXAPARIN 40 MG/0.4 ML (LOVENOX) SYR SC SCH (09:00)
--- NOTE | 2019-05-10 09:00 | Physical Therapy Progress Note ---
Therapy Progress Note Patient currently intubated and sedated. Will start when medically appropriate. FERNANDO MAY PT May 10, 2019 09:00 POS
--- NOTE | 2019-05-10 09:00 | Diagnostic Imaging Report ---
INDICATION: Dyspnea. COMPARISON: 05/09/2019. FINDINGS: There is cardiomegaly. There is some venous congestion. There are bibasilar infiltrates. There is a left pleural effusion. There is no pneumothorax. The lines and tubes are in satisfactory position. IMPRESSION: Bibasilar infiltrates with a left pleural effusion. Cardiomegaly and some central pulmonary venous congestion. Dictated by: Dictated on workstation # [id number]
[2019-05-10] MEDS: DEXMEDETOMIDINE INJECTION 1,000 MCG in NS (IVPB) 240 ML IV SCH (12:51)
--- NOTE | 2019-05-10 13:11 | NUR ---
Received dietary consult regarding pt's vent status. If enteral nutrition is necessary, would recommend the following TF: Jevity 1.5 at goal rate of 55 ml/hr. Begin at 10 ml/hr and increase by 10 ml q6h as tolerated. At goal rate, provides 1980 kcal (15 kcal/kg); 84 g Pro (0.7 g Pro/kg); and 1003 ml free water. Flush with 150 ml H2O q4h for hydration status. With flushes, provides 1903 ml free water. Will continue to follow and reassess as pt needs and status change. Clarence Aguirre MS, RD, LD [phone]
[2019-05-10 15:36] LABS: ABG BASE EXCESS 20.7 MMOL/L (-2.5-2.5); ABG OXYGEN SATURATION 98 % (94-100); ABG PCO2 64 MMHG (35-45); ABG PH 7.47 (7.37-7.43); ABG PO2 113 MMHG (79-93); ABG TCO2 48.3 MMOL/L (21.0-31.0)
[2019-05-10 15:39] LABS: INSPIRED O2 70%; PATIENT TEMP 36.4; VENTILATOR YES
--- NOTE | 2019-05-10 22:02 | Progress Note ---
Subjective Subjective/Events-last exam Patient intubated and sedated Review of Systems Unable to get 2/2 sedation Objective Exam Last Set of Vital Signs Vital Signs Date Time Temp Pulse Resp B/P (MAP) Pulse Ox O2 Delivery O2 Flow Rate FiO2 05/10/19 20:00 36.8 05/10/19 20:00 93 Vapotherm 25.00 70 05/10/19 18:00 86 25 117/97 (104) Capillary Refill : Less Than 3 Seconds I&O Intake and Output 05/10/19 00:00 Intake Total 200 ml Output Total 750 ml Balance -550 ml Intake Oral 200 ml Output Urine Total 750 ml General: Other (Intubated and sedated) Lungs: Other (crackles at the bases) Heart: Regular Rate, No Murmurs Abdomen: Normal Bowel Sounds, Soft Extremities: No Tenderness/Swelling Results/Procedures Lab Laboratory Tests 05/09/19 23:40: Glucometer 255H 05/10/19 00:16: Glucometer 259H 05/10/19 03:10: Blood Gas Puncture Site RIGHT RADIAL, Blood Gas Patient Temperature 37.2, Arterial Blood pH 7.39, Arterial Blood Partial Pressure CO2 78*H, Arterial Blood Partial Pressure O2 84, Arterial Blood HCO3 46*H, Arterial Blood Total CO2 48.3H , Arterial Blood Oxygen Saturation 94, Arterial Blood Base Excess 19.7H, Nirmal Test POSITIVE, Blood Gas Ventilator Setting YES, Blood Gas Inspired Oxygen 50 05/10/19 03:30: White Blood Count 7.6, Red Blood Count 3.84L, Hemoglobin 10.5L, Hematocrit 36, Mean Corpuscular Volume 93, Mean Corpuscular Hemoglobin 27, Mean Corpuscular Hemoglobin Concent 29L, Red Cell Distribution Width 14.5, Platelet Count 126L, Mean Platelet Volume 10.9H, Neutrophils (%) (Auto) 84H, Lymphocytes (%) (Auto) 6L, Monocytes (%) (Auto) 10, Eosinophils (%) (Auto) 0, Basophils (%) (Auto) 0, Neutrophils # (Auto) 6.4, Lymphocytes # (Auto) 0.5L, Monocytes # (Auto) 0.7, Eosinophils # (Auto) 0.0, Basophils # (Auto) 0.0, Sodium Level 141, Potassium Level 4.8, Chloride Level 92L, Carbon Dioxide Level 36H, Anion Gap 13, Blood Urea Nitrogen 23H, Creatinine 0.75, Estimat Glomerular Filtration Rate > 60, BUN/Creatinine Ratio 31, Glucose Level 194H, Calcium Level 7.7L, Corrected Calcium 8.1L, Phosphorus Level 4.0, Magnesium Level 2.0, Total Bilirubin 0.2, Aspartate Amino Transf (AST/SGOT) 13, Alanine Aminotransferase (ALT/SGPT) 19, Alkaline Phosphatase 63, B-Type Natriuretic Peptide 55.3, Total Protein 5.6L, Albumin 3.5 05/10/19 11:20: Glucometer 219H 05/10/19 15:20: Blood Gas Puncture Site UNK, Blood Gas Patient Temperature 36.4, Arterial Blood pH 7.47H, Arterial Blood Partial Pressure CO2 64H, Arterial Blood Partial Pressure O2 113H, Arterial Blood HCO3 46*H, Arterial Blood Total CO2 48.3H, Arterial Blood Oxygen Saturation 98, Arterial Blood Base Excess 20.7H, Nirmal Test UNK, Blood Gas Ventilator Setting YES, Blood Gas Inspired Oxygen 70% 05/10/19 18:12: Glucometer 183H Microbiology 05/04/19 Blood Culture - Final, Complete No growth 05/09/19 Gram Stain - Final, Resulted 05/09/19 Sputum Culture - Preliminary, Resulted Usual upper respiratory leatha Assessment/Plan Assessment/Plan (1) Acute and chronic respiratory failure Status: Acute Assessment & Plan: 05/08: On Vapotherm, will titrate as possible, MAT protocol 05/09: Patient will be intubated for procedure and will have transfer to ICU after procedure 05/10: Patient required prolonged intubation following ICD placement, Dr Hull managing vent, appreciate recommendations (2) Acute on chronic heart failure Status: Acute Assessment & Plan: 05/08: Cardiology consulted and managing, appreciate recommendations Qualifiers: Qualified Codes: I50.43 - Acute on chronic combined systolic (congestive) and diastolic (congestive) heart failure (3) Anasarca Status: Chronic Assessment & Plan: 05/09: Lasix BID, continue to monitor renal function (4) Nonsustained ventricular tachycardia Status: Chronic Assessment & Plan: 05/08: Considering ICD placement during this admission 05/09: Plan for placement today 05/10: ICD successfully placed yesterday (5) Atrial fibrillation Status: Chronic Assessment & Plan: 05/08: Patient high fall risk with multiple falls and is not a good candidate for anticoagulation Qualifiers: Qualified Codes: I48.0 - Paroxysmal atrial fibrillation (6) Volume overload Status: Acute Qualifiers: Qualified Codes: E87.70 - Fluid overload, unspecified (7) Obesity, morbid, BMI 40.0-49.9 Status: Chronic (8) DVT prophylaxis Status: Acute Assessment & Plan: Lovenox Clinical Quality Measures DVT/VTE Risk/Contraindication: Risk Factor Score Per Nursin RFS Level Per Nursing on Admit: 4+=Very High SHAHID SPENCER MD May 10, 2019 22:02 POS
[2019-05-10] MEDS: HYDROcodone/APAP 7.5 MG/325 MG (LORTAB, LORCET PLUS) TABLET PO PRN (23:02)
[2019-05-11] VITALS (22 sets, daily range): BP systolic 85–136; BP diastolic 58–117
[2019-05-11] MEDS: CATHETER FLUSH 10 ML SYR IV SCH ×4 (00:48→22:03)
[2019-05-11] MEDS: RT-ALBUTEROL/IPRATROPIUM 3 ML (DUONEB) VIAL INH SCH ×6 (03:06→23:24)
[2019-05-11 03:41] LABS: BASOPHILS % (AUTO) 0 % (0-10); EOSINOPHILS % (AUTO) 0 % (0-10); HEMATOCRIT 37 % (35-52); HEMOGLOBIN 10.8 G/DL (11.5-16.0); LYMPHOCYTES # (AUTO) 0.5 X 10^3 (1.0-4.0); LYMPHOCYTES % (AUTO) 5 % (12-44); MEAN CORPUSCULAR HEMOGLOBIN 28 PG (25-34); MEAN CORPUSCULAR HGB CONC 29 G/DL (32-36); MEAN CORPUSCULAR VOLUME 94 FL (80-99); MEAN PLATELET VOLUME 10.5 FL (7.4-10.4); MONOCYTES # (AUTO) 0.9 X 10^3 (0.0-1.0); MONOCYTES % (AUTO) 9 % (0-12); NEUTROPHILS # (AUTO) 9.2 X 10^3 (1.8-7.8); NEUTROPHILS % (AUTO) 87 % (42-75); PLATELET COUNT 154 10^3/uL (130-400); WHITE BLOOD COUNT 10.7 10^3/uL (4.3-11.0)
[2019-05-11 04:10] LABS: ALANINE AMINOTRANSFERASE 15 U/L (0-55); ALBUMIN 3.6 GM/DL (3.2-4.5); ALKALINE PHOSPHATASE 61 U/L (40-136); BILIRUBIN,TOTAL 0.6 MG/DL (0.1-1.0); BUN/CREATININE RATIO 42; CALCIUM 7.7 MG/DL (8.5-10.1); CARBON DIOXIDE 38 MMOL/L (21-32); CHLORIDE 89 MMOL/L (98-107); CREATININE SERUM 0.74 MG/DL (0.60-1.30); GFR ESTIMATED > 60; GLUCOSE 149 MG/DL (70-105); MAGNESIUM 2.3 MG/DL (1.6-2.4); PHOSPHORUS 4.9 MG/DL (2.3-4.7); POTASSIUM 4.1 MMOL/L (3.6-5.0); SODIUM 141 MMOL/L (135-145); TOTAL PROTEIN 5.5 GM/DL (6.4-8.2)
--- NOTE | 2019-05-11 04:36 | Pulmonary Progress Note ---
Subjective Time Seen by a Provider: 04:41 Sepsis Event Evaluation Height, Weight, BMI Height: '" Weight: lbs. oz. kg; 48.00 BMI Method: Exam Exam Vital Signs Date Time Temp Pulse Resp B/P (MAP) Pulse Ox O2 Delivery O2 Flow Rate FiO2 05/11/19 04:00 93 Vapotherm 25.00 70 05/11/19 04:00 36.7 05/11/19 04:00 91 17 125/79 (94) 94 Vapotherm 25.00 60.00 05/11/19 03:06 93 Vapotherm 25.00 60 05/11/19 03:00 78 134/93 (107) 95 Vapotherm 25.00 60.00 05/11/19 02:00 91 9 110/75 (87) 96 Vapotherm 25.00 60.00 05/11/19 01:00 100 14 123/75 (91) 95 Vapotherm 25.00 60.00 05/11/19 01:00 100 05/11/19 00:00 111 35 113/76 (88) 95 Vapotherm 25.00 60.00 05/11/19 00:00 93 Vapotherm 25.00 70 05/11/19 00:00 35.9 05/10/19 23:00 108 18 123/79 (94) 95 Vapotherm 25.00 60.00 05/10/19 22:30 110 10 121/73 (89) 97 Vapotherm 25.00 60.00 05/10/19 22:26 96 Vapotherm 25.00 70 05/10/19 22:00 105 33 126/72 (90) 91 Vapotherm 25.00 70.00 05/10/19 21:00 92 133/81 (98) 94 Vapotherm 25.00 70.00 05/10/19 20:00 98 122/92 (102) 95 Vapotherm 25.00 70.00 05/10/19 20:00 36.8 05/10/19 20:00 93 Vapotherm 25.00 70 05/10/19 19:42 95 Vapotherm 25.00 70 05/10/19 19:06 90 05/10/19 19:00 90 147/108 (121) 93 Vapotherm 25.00 70.00 05/10/19 18:00 86 25 117/97 (104) 93 Vapotherm 25.00 70.00 05/10/19 17:00 98 122/69 (86) 93 Vapotherm 25.00 70.00 05/10/19 16:30 93 Vapotherm 25.00 70 05/10/19 16:00 37.4 05/10/19 16:00 96 40 130/84 (99) 96 Vapotherm 25.00 70.00 05/10/19 16:00 91 Vapotherm 25.00 70 05/10/19 16:00 96 11 130/84 (99) 96 Vapotherm 25.00 70.00 05/10/19 15:00 98 115/70 (85) 96 Mechanical Ventilator 70.00 05/10/19 14:44 98 25 97 70 05/10/19 14:00 96 123/99 (107) 96 Mechanical Ventilator 70.00 05/10/19 13:17 102/54 05/10/19 13:00 77 106/64 (78) 95 Mechanical Ventilator 70.00 05/10/19 13:00 86 05/10/19 12:15 93 Mechanical Ventilator 70 05/10/19 12:00 68 98/54 (69) 95 Mechanical Ventilator 70.00 05/10/19 11:24 70 16 94 70 05/10/19 11:00 93 16 123/79 (94) 100 Mechanical Ventilator 70.00 05/10/19 10:00 93 16 122/73 (89) 98 Mechanical Ventilator 70.00 05/10/19 09:56 Mechanical Ventilator 70.00 05/10/19 09:56 93 18 116/66 100 Mechanical Ventilator 70.00 05/10/19 09:00 80 16 113/66 (82) 92 Mechanical Ventilator 80.00 05/10/19 08:15 93 Mechanical Ventilator 80 05/10/19 08:00 93 15 96/70 (79) 92 Mechanical Ventilator 80.00 05/10/19 07:51 88 16 92 80 05/10/19 07:33 88 16 92 80 05/10/19 07:00 84 05/10/19 07:00 80 132/91 (105) 92 Mechanical Ventilator 80.00 05/10/19 06:40 86 134/75 05/10/19 06:00 77 141/81 (101) 92 Mechanical Ventilator 80.00 05/10/19 05:57 Mechanical Ventilator 80.00 05/10/19 05:00 73 140/81 (100) 91 Mechanical Ventilator 70.00 I & O 05/11/19 07:00 Intake Total 1860 ml Output Total 3600 ml Balance -1740 ml Height & Weight Height: '" Weight: lbs. oz. kg; 48.00 BMI Method: General Appearance: WD/WN, Chronically ill, Mild Distress, Obese, Other (sedated on vent) HEENT: PERRL/EOMI, Normal ENT Inspection Neck: Non Tender, Supple Respiratory: Normal Breath Sounds, Decreased Breath Sounds Cardiovascular: Regular Rate, Rhythm Capillary Refill: Less Than 3 Seconds Gastrointestinal: non tender, soft Extremity: Pedal Edema Skin: Normal Color, Warm/Dry Lymphatic: No Adenopathy Results Lab Laboratory Tests 05/09/19 06:42 05/10/19 03:30 05/11/19 03:20 Assessment/Plan Assessment/Plan Acute on chronic respiratory failure Extubated yesterday -PT is approved for home vent to mask. DME will set it up upon discharge. -DuoNeb q 4 -solumedrol 40 Q 6 Atelectasis - Pt is requiring high flow oxygen r/o PNA -Strong productive cough of Rodríguez sputum -Repeat Sputum culture -Pt has no respiratory reserve. Will start Zosyn and Azithromycin for empiric coverage. -IS History of recurrent nonsustained ventricular tachycardia, history of syncope in the past. Patient has an attempt for ICD placement and became severely hyp oxemic during induction of sedation. Procedure was canceled. Pulmonary edema and bilateral pleural effusions COPDAE -solumedrol -SVNs with duoneb Q 4 and add pulmicort BID CHFAE -acute on chronic left ventricular diastolic dysfunction -Lasix -Echo -Cardiology following -Cardiac catheterization was done in December 2018 in [facility] and reported having nonobstructive coronary artery disease Obesity OHS -Will benefit from home vent to mask Anemia -Monitor -Check occult stool Paroxysmal atrial fibrillation Peripheral edema, improving slowly Hypertension Hyperlipidemia Morbid obesity PANKAJ VALENTINE DO May 11, 2019 04:36 POS
[2019-05-11] MEDS ORDERED: NS (IVPB) 100 ML ONE (04:52)
[2019-05-11] MEDS ORDERED: PIPERACILLIN/TAZO 4.5 GM VIAL (ZOSYN) IV ONE (04:52)
[2019-05-11] MEDS: PIPERACILLIN/TAZOBACTAM (BULK) 4.5 GM in NS (IVPB) 100 ML IV SCH ×3 (05:00→20:47)
[2019-05-11] MEDS: MAGNESIUM 1 GM/100 ML IVPB 100 ML IV SCH (05:01)
[2019-05-11] MEDS: KCL 20 MEQ TAB (K-DUR) PO SCH (05:01)
[2019-05-11] MEDS: POTASSIUM CL 10MEQ/50ML IVPB 50 ML IV SCH (05:01)
[2019-05-11] MEDS: inSUlin ASPART (NovoLOG) 1 UNIT/0.01 ML (CHARGE PER UNIT) SC SCH ×4 (05:04→20:47)
[2019-05-11] MEDS: methylPREDNISolone 40 MG/ML (Solu-MEDROL) VIAL IV SCH ×3 (05:58→17:46)
[2019-05-11] MEDS: FUROSEMIDE 40 MG/4 ML INJ (LASIX) IVP SCH ×2 (05:58→17:46)
[2019-05-11] MEDS: HYDROcodone/APAP 7.5 MG/325 MG (LORTAB, LORCET PLUS) TABLET PO PRN (05:59)
--- NOTE | 2019-05-11 07:26 | Cardiology Progress Note ---
Subjective Date Seen by Provider: May 11, 2019 Time Seen by Provider: 07:24 Subjective/Events-last exam Patient is laying down in bed, extubated today, on high flow oxygen. Feeling better Review of Systems General: No Chills, No Night Sweats; Fatigue; No Malaise, No Appetite, No Other HEENT: No Head Aches, No Visual Changes, No Eye Pain, No Ear Pain, No Dysphasia, No Sinus Congestion, No Post Nasal Drip, No Sore Throat, No Other Pulmonary: Dyspnea; No Cough, No Pleuritic Chest Pain, No Other Cardiovascular: Edema; No: Chest Pain, Palpitations, Orthopnea, Lt Headedness, Other Objective-Cardiology Exam Last Set of Vital Signs Vital Signs 05/11/19 05/11/19 05/11/19 05/11/19 04:00 05:00 06:00 06:43 Temp 36.7 Pulse 81 Resp 17 B/P (MAP) 110/74 (86) Pulse Ox 93 O2 Delivery Vapotherm O2 Flow Rate 15.00 FiO2 55 Capillary Refill : Less Than 3 Seconds I&O Intake and Output 05/11/19 00:00 Intake Total 1260 ml Output Total 4150 ml Balance -2890 ml Intake Oral 800 ml IV Total 460 ml Output Urine Total 4150 ml General: Alert, Oriented X3, Cooperative, Mild Distress HEENT: Atraumatic, PERRLA Neck: Supple, No JVD, No Thyromegaly Lungs: Other (crackles at the bases) Heart: Normal S1, Normal S2, No Murmurs, Other (Tachycardia) Abdomen: Normal Bowel Sounds, Soft Extremities: No Tenderness/Swelling Skin: No Rashes, No Breakdown Neuro: Normal Speech, Strength at 5/5 X4 Ext, Sensation Intact, Cranial Nerves 3-12 NL Psych/Mental Status: Mental Status NL, Mood NL Results Lab Laboratory Tests 05/11/19 03:20 A/P-Cardiology Admission Diagnosis Congestive heart failure Coronary artery disease Hypertension Hyperlipidemia Assessment/Plan Status post acute respiratory failure, extubated today, on high flow oxygen re covering slowly Paroxysmal atrial fibrillation, having multiple episodes of tachycardia today. I will give her one dose of IV Lopressor and start on Cardizem 30 mg every 6 hours and continue on Coreg. High risk of stroke, I will place on therapeutic dose of Lovenox, previously was considered high risk of falling and she was not a candidate for long-term oral anticoagulation, will monitor at this time and evaluate with physical therapy Recurrent nonsustained ventricular tachycardia, history of syncope, paroxysmal atrial fibrillation, had a loop recorder extracted, status post dual-chamber ICD implant by Dr. Ward, DFT testing. Site is healing well. Congestive heart failure, acute on chronic left ventricular diastolic dysfunction, hypertensive heart disease. Continue to monitor Cardiac catheterization was done in December 2018 in [facility] and reported having nonobstructive coronary artery disease COPD, restrictive lung disease, stage IV, FEV1 0.56, currently ventilator dependent, Dr. Hull is managing Paroxysmal atrial fibrillation, had history of recurrent falls with severe consequences, she was not considered a candidate for oral anticoagulation, will evaluate with physical therapy Type II myocardial infarction, probably secondary to hypoxemia, mild elevation in troponin, had a cardiac catheterization on January 11, 2019 in [facility] and reported normal coronaries. Continue to monitor Peripheral edema, improving slowly Hypertension, monitor blood pressure Hyperlipidemia, restart home medication Morbid obesity Clinical Quality Measures DVT/VTE Risk/Contraindication: Risk Factor Score Per Nursin RFS Level Per Nursing on Admit: 4+=Very High LINDY GROVER MD May 11, 2019 07:26 POS
[2019-05-11] MEDS ORDERED: meTOprolol 5 MG/5 ML (LOPRESSOR) VIAL IV ONE (07:30)
--- NOTE | 2019-05-11 07:39 | Diagnostic Imaging Report ---
INDICATION: Dyspnea. Comparison made with prior examination 05/10/2019. FINDINGS: There is cardiomegaly. There is bibasilar subsegmental atelectasis and/or pneumonitis. There is left pleural effusion. There is no pneumothorax. Mediastinum is unremarkable. Pacemaker overlies left hemithorax. IMPRESSION: Bibasilar atelectasis and/or pneumonitis and small left pleural effusion. Cardiomegaly. Dictated by: Dictated on workstation # [id number]
[2019-05-11] MEDS ORDERED: ENOXAPARIN 300 MG/3 ML (LOVENOX) MULTI-DOSE VIAL SQ SCH (08:00)
[2019-05-11] MEDS ORDERED: AZITHROMYCIN INJECTION 500 MG in NS (IVPB) 250 ML IV SCH (09:00)
[2019-05-11] MEDS: CARVEDILOL 3.125 MG (COREG) TABLET PO SCH ×2 (09:06→20:48)
[2019-05-11] MEDS: PANTOPRAZOLE 40 MG (PROTONIX) VIAL IV SCH (09:06)
[2019-05-11] MEDS: ENOXAPARIN 300 MG/3 ML (LOVENOX) MULTI-DOSE VIAL SQ SCH ×2 (09:30→20:47)
[2019-05-11] MEDS: ASPIRIN E.C. 81 MG (ECOTRIN) TAB PO SCH (09:30)
[2019-05-11] MEDS: RT-BUDESONIDE NEBS 0.5 MG/2ML (PULMICORT) AMP INH SCH ×2 (10:12→17:57)
--- NOTE | 2019-05-11 10:50 | NUR ---
Pastoral care visit.
--- NOTE | 2019-05-11 11:20 | Occupational Therapy Eval ---
OT Evaluation-General/PLF Medical Diagnosis Admission Date May 04, 2019 at 16:08 Medical Diagnosis: Pacemaker/CHF/CAD Onset Date: May 09, 2019 Therapy Diagnosis Therapy Diagnosis: Weakness, Decreased ADL skills Precautions Precautions/Isolations: Fall Prevention, Standard Precautions Safety Interventions: None Weight Bear Status Weight Bearing Restriction: Non Weight Bearing Location Restriction: L UE Pt. has pacemaker precautions. Referral Physician: Dr. Hull Referral Reason: Activity Tolerance, Self Care, Evaluation/Treatment, Strengthening/ROM Medical History Pertinent Medical History: Atrial Fib, COPD, GERD, HTN Current History Pt. intubated after pacemaker placement. Extubated yesterday. Reviewed History: Yes Social History Home: Single Level Current Living Status: Children Entry Into Home: Ramp Pt. lives with daughter and grandchildren. ADL-Prior Level of Function SCALE: Activities may be completed with or without assistive devices. 2-Ynknxqaxel-plrwskw completes the activity by him/herself with no assistance from a helper. 5-Set-up or Clean-up Assistance-helper sets up or cleans up; patient completes activity. [place] assists only prior to or following the activity. 4-Supervision or Touching Assistance-helper provides verbal cues and/or touching/steadying and/or contact guard assistance as patient completes activity. Assistance may be provided throughout the activity or intermittently. 3-Partial/Moderate Assistance-helper does LESS THAN HALF the effort. [place] lifts, holds or supports trunk or limbs, but provides less than half the effort. 2-Substantial/Maximal Assistance-helper does MORE THAN HALF the effort. [place] lifts or holds trunk or limbs and provides more than half the effort. 1-Bkctnwyyy-lhzaky does ALL the effort. Patient does none of the effort to complete the activity. Or, the assistance of 2 or more helpers is required for the patient to complete the activity. If activity was not attempted, code reason: 7-Patient Refused. 9-Not Applicable-not attempted and the patient did not perform the activity before the current illness, exacerbation or injury. 10-Not Attempted due to Environmental Limitations-(lack of equipment, weather restraints, etc.). 88-Not Attempted due to Medical Conditions or Safety Concerns. ADL PLOF Comments Pt's daughter helps her bathe and dress. Pt. reports that she has home health as well. Is unable to state how much, but reports, "I have a revolving door of people." Self Care: Needed Some Help Functional Cognition: Unknown DME/Equipment: Bath Chair, Shower DME/Equipment Comments Pt. states that she has a cane, walker, and wheelchair at home. OT Current Status Subjective Pt. does not report pain level. However, zacarias report fatigue and fear at getting up to chair. Appearance Pt. in bed. Reluctant to work with therapy. Requires encouragement. Mental Status/Objective Patient Orientation: Person, Place Attachments: Nova Catheter, IV, Oxygen, Telemetry Current Pt. is wearing sling on left arm. Pacemaker placed recently. Pt. unable to use left UE for push/pull, or over head. ADL-Treatment Eating (QC): 10 Oral Hygiene (QC): 10 Shower/Bathe Self (QC): 9 (Daughter assisted.) Upper Body Dressing (QC): 9 (Daughter assisted.) Lower Body Dressing (QC): 9 On/Off Footwear (QC): 1 (Dependent to don slipper socks.) Toileting Hygiene (QC): 1 (Catheter placement.) Toilet Transfer (QC): 88 Other Treatments Pt. is agreeable to treatment when it is explained to her the importance of moving, and sitting upright. Nursing is okay with OT working with pt. Pt. requires max assist supine-sit. While seated on side of bed pt. reports that she feels dizzy. Nursing called into room to monitor BP. BP appropriate and pt. sits approximately 10 minutes with CGA/min assist. States that she feels that she is unable to stand. PT comes into room for co-treatment due to pt's fatigue and need for skilled care/line management/physical support of 2. Pt. assesses feet placement and balance with sit-stand while OT facilitates hand placement and physical guidance. Pt. stands once but feels that her legs are going to give out. Sits to rest and stands again with one therapist in front, and one guiding hips/managing lines. Overall, max x 1-2 for transfer. Pt. up in chair with feet elevated and left UE positioned to comfort. All needs met. Education OT Patient Education: Correct positioning, Modified ADL techniques, Progress toward Goal/Update tx plan, Purpose of tx/functional activities, Reviewed precautions, Rehab process, Transfer techniques Teaching Recipient: Patient Teaching Methods: Demonstration, Discussion Response to Teaching: Verbalize Understanding, Return Demonstration OT Short Term Goals Short Term Goals Time Frame: May 18, 2019 Eatin Oral hygiene: 5 Toileting hygiene: 3 OT Usp Goals Lab Technician Goals Time Frame: May 25, 2019 Eating (QC): 6 Oral Hygiene (QC): 6 Toileting Hygiene (QC): 5 Shower/Bathe Self (QC): 9 Upper Body Dressing (QC): 9 Lower Body Dressing (QC): 9 On/Off Footwear (QC): 9 Additional Goals: 1-Demonstrate ADL Tasks, 2-Verbalize Understanding, 3- ImproveStrength/Georges 1=Demonstrate adherence to instructed precautions during ADL tasks. 2=Patient will verbalize/demonstrate understanding of assistive devices/modifications for ADL. 3=Patient will improve strength/tolerance for activity to enable patient to perform ADL's. OT Education/Plan Problem List/Assessment Assessment: Decreased Activ Tolerance, Decreased UE Strength, Dependent Trans fers, Impaired Bed Mobility, Impaired Funct Balance, Impaired I ADL's, Impaired Self-Care Skills, Restricted Funct UE ROM Discharge Recommendations Plan/Recommendations: Continue POC Therapy Discharge Recommendati: Home & Family Treatment Plan/Plan of Care Treatment,Training & Education: Yes Patient would benefit from OT for education, treatment and training to promote independence in ADL's, mobility, safety and/or upper extremity function for ADL's. Plan of Care: ADL Retraining, Functional Mobility, UE Funct Exercise/Act Treatment Duration: May 25, 2019 Frequency: 5 times per week Estimated Hrs Per Day: .25 hour per day Agreement: Yes Rehab Potential: Fair Time/GCodes Start Time: 10:05 Stop Time: 10:45 Total Time Billed (hr/min): 40 Billed Treatment Time 1, EVH x 15minutes FA x 25minutes (partial co-treatment with PT. Please see above note for findings and goals.) MARVIN PATEL OT May 11, 2019 11:20 POS
--- NOTE | 2019-05-11 11:38 | Physical Therapy Evaluation ---
PT Evaluation-General Medical Diagnosis Admission Date May 04, 2019 at 16:08 Medical Diagnosis: Pacemaker/CHF/CAD Onset Date: May 09, 2019 Therapy Diagnosis Therapy Diagnosis: debility/weakness Precautions Precautions/Isolations: Fall Prevention, Standard Precautions Weight Bear Status Right Lower Extremity: Right Weight Bearing/Tolerated Left Lower Extremity: Left Weight Bearing/Tolerated Referral Physician: Dr. Hull Reason for Referral: Evaluation/Treatment Medical History Pertinent Medical History: Atrial Fib, COPD, GERD, HTN Current History s/p pacemaker placement Reviewed History: Yes Social History Home: Single Level Current Living Status: Children Entry Into Home: Ramp Prior Prior Level of Function SCALE: Activities may be completed with or without assistive devices. 5-Gyixissvrd-bbakcrv completes the activity by him/herself with no assistance from a helper. 5-Set-up or Clean-up Assistance-helper sets up or cleans up; patient completes activity. [place] assists only prior to or following the activity. 4-Supervision or Touching Assistance-helper provides verbal cues and/or touching/steadying and/or contact guard assistance as patient completes activity. Assistance may be provided throughout the activity or intermittently. 3-Partial/Moderate Assistance-helper does LESS THAN HALF the effort. [place] lifts, holds or supports trunk or limbs, but provides less than half the effort. 2-Substantial/Maximal Assistance-helper does MORE THAN HALF the effort. [place] lifts or holds trunk or limbs and provides more than half the effort. 0-Gpfvaigsp-nyhnfo does ALL the effort. Patient does none of the effort to complete the activity. Or, the assistance of 2 or more helpers is required for the patient to complete the activity. If activity was not attempted, code reason: 7-Patient Refused. 9-Not Applicable-not attempted and the patient did not perform the activity before the current illness, exacerbation or injury. 10-Not Attempted due to Environmental Limitations-(lack of equipment, weather restraints, etc.). 88-Not Attempted due to Medical Conditions or Safety Concerns. Bed Mobility: 5 Transfers (B,C,W/C): 5 Gait: 5 Indoor Mobility (Ambulation): Independent Stairs: Not Applicalbe Prior Devices Use: Manual wheelchair, Walker (ambulates short distances only PLOF) family assistance at home PLOF PT Evaluation-Current Subjective Patient agrees to PT. OT present for assessment as well. Pain Numeric Pain Scale: 5-Moderate Pain Location: Left Location Body Site: Shoulder Pain Description: Acute Objective Patient Orientation: Normal For Age Attachments: Oxygen, Nova Catheter ROM/Strength ROM Lower Extremities bilateral LE WFL Strength Lower Extremities 3-/5 grossly bilateral LE Integumentary/Posture Integumentary refer to nursing notes Posture WFL bilateral LE Neuromuscular (Tone, Coordination, Reflexes) grossly intact Sensory Vision: Functional Hearing: Functional Sensation Right Lower Extremit: Impaired Sensation Left Lower Extremity: Impaired Transfers Roll Left to Right (QC): 2 Sit to Lying (QC): 2 Lying to Sitting/Side of Bed(Q: 2 Sit to Stand (QC): 2 Chair/Oll-km-Zyhhg Xfer(QC): 2 Car Transfer (QC): 10 Gait Does the Patient Walk?: Yes Mode of Locomotion: Both Anticipated Mode of Locomotion: Both Walk 10 feet (QC): 88 Walk 50 ft with 2 Turns(QC): 88 Walk 150 ft (QC): 88 Walking 10ft/uneven surface-QC: 88 Wheelchair Training Does the Pt Use a Wheelchair?: Yes Wheel 50 ft with 2 turns (QC): 88 Wheel 150 ft (QC): 88 Type of Wheelchair: Manual Stairs 1 Step (curb) (QC): 9 4 Steps (QC): 9 12 Steps (QC): 9 Balance Sitting Static: Normal Sitting Dynamic: Fair Standing Static: Poor Standing Dynamic: Poor Picking up an Object (QC): 88 Assessment/Needs 68 y.o. female, will benefit from skilled PT to address functional strength and mobility to improve current LOF to safely return to home with family at maximum LOF. Family does assist patient PLOF. Rehab Potential: Fair PT Chemical Plant Technical Director Goals Usp Goals PT Chemical Plant Technical Director Goals Time Frame: May 20, 2019 Roll Left & Right (QC): 5 Sit to Lying (QC): 5 Lying-Sitting on Side/Bed(QC): 5 Sit to Stand (QC): 5 Chair/Flr-gg-Cigwx Xfer(QC): 5 Toilet Transfer (QC): 5 Car Transfer (QC): 5 Does the Patient Walk: Yes Walk 10 feet (QC): 5 Walk 50ft with 2 Turns (QC): 5 Walk 150 ft (QC): 5 Walking 10ft on Uneven Surface: 5 1 Step (curb) (QC): 9 4 Steps (QC): 9 12 Steps (QC): 9 Picking up an Object (QC): 88 Does the Pt use WC or Scooter?: No Type: N/A Type: N/A PT Plan Problem List Problem List: Activity Tolerance, Functional Strength, Safety, Balance, Gait, Transfer, Bed Mobility Treatment/Plan Treatment Plan: Continue Plan of Care Treatment Plan: Bed Mobility, Education, Functional Activity Georges, Functional Strength, Gait, Safety, Therapeutic Exercise, Transfers Treatment Duration: May 20, 2019 Frequency: 6 times per week Estimated Hrs Per Day: .25 hour per day Patient and/or Family Agrees t: Yes Time/GCodes Time In: 1035 Time Out: 1045 Total Billed Treatment Time: 10 Total Billed Treatment 1 visit EVLowC 10 min EDMOND STRICKLAND PT May 11, 2019 11:38 POS
[2019-05-11] MEDS: DILTIAZEM 30 MG (CARDIZEM) TAB PO SCH ×2 (12:24→17:47)
--- NOTE | 2019-05-11 14:03 | NUR ---
DISCHARGE PLANNING/PALLIATIVE CARE RN in to see patient. She has a new dual chamber pace maker placed, was extubated yesterday and is now on ID. We had discussion about POC for discharge. Talked about long-term and patient reported that she has used day in [place] and in [facility]. She asked that I call and talk to her daughter, Precious ([phone]). Precious confirmed that she has used all of her 100% covered days and is in to her 80/20 copay which she cannot afford. We discussed INPT REHAB and I gave Sonya choice of our IN Rehab or [facility] and she chose to pursue rehab here. Order given by Dr. Ruby for an INPT Rehab evaluation to be placed. Addendum: 05/11/19 at 1415 by TITO CAMPBELL RN Patient did have HHC with [facility]
--- NOTE | 2019-05-11 16:03 | Diagnostic Imaging Report ---
INDICATION: Bleeding at pacemaker site. Frontal chest obtained at 03:50 p.m. and compared to same day at 03:22 a.m. There is cardiomegaly with mild central vascular congestion. Pacemaker device is unchanged in position. There is no pneumothorax or pleural fluid. IMPRESSION: Stable chest x-ray compared to earlier today with cardiomegaly and mild central vascular prominence, no change in pacemaker position. Dictated by: Dictated on workstation # [id number]
--- NOTE | 2019-05-11 19:08 | Cardiology Progress Note ---
Cardiology SOAP Progress Note Subjective: extubated, no cardiac complaints Objective: I&O/Vital Signs 05/11/19 05/11/19 05/11/19 05/11/19 08:00 08:05 09:00 10:00 Pulse 105 96 99 Resp 34 51 18 B/P (MAP) 85/65 (72) 120/95 (103) 109/58 (75) Pulse Ox 91 92 91 95 O2 Delivery Vapotherm Vapotherm Vapotherm Vapotherm O2 Flow Rate 25.00 15.00 25.00 25.00 60.00 60.00 60.00 FiO2 30 05/11/19 05/11/19 05/11/19 05/11/19 10:12 10:13 10:18 11:00 Pulse 104 Resp 24 B/P (MAP) 125/70 (88) Pulse Ox 93 93 93 O2 Delivery High Flow N/C High Flow N/C High Flow N/C High Flow N/C O2 Flow Rate 7.00 7.00 7.00 7.00 05/11/19 05/11/19 05/11/19 05/11/19 11:05 12:00 12:00 12:00 Temp 36.3 Pulse 96 Resp 26 B/P (MAP) 127/117 (120) Pulse Ox 93 93 O2 Delivery High Flow N/C High Flow N/C High Flow N/C O2 Flow Rate 5.00 5.00 5.00 05/11/19 05/11/19 05/11/19 05/11/19 13:00 13:00 13:23 14:00 Pulse 107 107 74 Resp 12 39 B/P (MAP) 124/69 (87) Pulse Ox 94 91 O2 Delivery High Flow N/C High Flow N/C High Flow N/C O2 Flow Rate 5.00 7.00 5.00 05/11/19 05/11/19 05/11/19 05/11/19 15:00 16:00 16:00 16:00 Temp 36.5 Pulse 76 90 Resp 27 28 B/P (MAP) 115/61 (79) 103/87 (92) Pulse Ox 93 93 93 O2 Delivery High Flow N/C High Flow N/C High Flow N/C O2 Flow Rate 5.00 5.00 5.00 05/11/19 05/11/19 05/11/19 05/11/19 16:42 17:00 17:57 18:00 Temp 36.5 Pulse 89 98 79 B/P (MAP) 102/92 (95) 136/63 (87) Pulse Ox 94 89 94 95 O2 Delivery High Flow N/C High Flow N/C High Flow N/C O2 Flow Rate 5.00 4.00 5.00 FiO2 36 05/11/19 00:00 Intake Total 1160 ml Output Total 3250 ml Balance -2090 ml Constitutional: appears stated age, AAO x 3; No apparent distress; well- developed, well-nourished Respiratory: chest is bilaterally symmetric, lungs clear to auscultation Cardiovascular: regular rate-rhythm, S1 and S2 Gastrointestional: soft, distended, audible bowel sounds; No spleenomegaly Extremities: normal range of motion, non-tender, normal inspection, pedal edema; No clubbing, No cyanosis, No significant edema Neurologic/Psychiatric: no motor/sensory deficits, alert, normal mood/affect, oriented x 3 Skin: normal color, warm/dry; No rash, No ulcerations Results/Procedures: Labs Laboratory Tests 05/10/19 23:51: Glucometer 230H 05/11/19 03:20: White Blood Count 10.7, Red Blood Count 3.90L, Hemoglobin 10.8L, Hematocrit 37, Mean Corpuscular Volume 94, Mean Corpuscular Hemoglobin 28, Mean Corpuscular Hemoglobin Concent 29L, Red Cell Distribution Width 15.0H, Platelet Count 154, Mean Platelet Volume 10.5H, Neutrophils (%) (Auto) 87H, Lymphocytes (%) (Auto) 5L, Monocytes (%) (Auto) 9, Eosinophils (%) (Auto) 0, Basophils (%) (Auto) 0, Neutrophils # (Auto) 9.2H, Lymphocytes # (Auto) 0.5L, Monocytes # (Auto) 0.9, Eosinophils # (Auto) 0.0, Basophils # (Auto) 0.0, Sodium Level 141, Potassium Level 4.1, Chloride Level 89L, Carbon Dioxide Level 38H, Anion Gap 14, Blood Urea Nitrogen 31H, Creatinine 0.74, Estimat Glomerular Filtration Rate > 60, BUN/Creatinine Ratio 42, Glucose Level 149H, Calcium Level 7.7L, Corrected Calcium 8.0L, Phosphorus Level 4.9H, Magnesium Level 2.3, Total Bilirubin 0.6, Aspartate Amino Transf (AST/SGOT) 10, Alanine Aminotransferase (ALT/SGPT) 15, Alkaline Phosphatase 61, Total Protein 5.5L, Albumin 3.6, Triglycerides Level 133 05/11/19 16:03: Glucometer 299H Microbiology 05/04/19 Blood Culture - Final, Complete No growth 05/09/19 Gram Stain - Final, Complete 05/09/19 Sputum Culture - Final, Complete Usual upper respiratory leatha A/P: Assessment/Dx: Numerous episodes of sustained VT, Syncope, Idiopathic VT, PAF Plan: Numerous episodes of sustained VT on ILR interrogation with duration > 30 seconds, working diagnosis of idiopathic VT. Echocardiogram done 04/2019 showed normal LV function. Negative Cath in 12/2018. Dual-chamber ICD placed on 05/09/2019. Implantable loop recorder was removed as well. Patient tolerated procedure well and did not have any complication. Postprocedure chest x-ray did not show any pneumothorax. Atrial paced rhythm this morning. Device interrogation pending. Syncope, likely secondary to sustained VT. Idiopathic VT, on verapamil. PAF, will need OAC and rate controlling agent. Severe obstructive and restrictive lung disease, extubated today. Defer to Dr. Hull and the primary team. Thank you for your consultation. Please call me if you have any questions. John Ward MD, FACP, FACC, FSCAI, FHRS, CCDS Interventional Cardiology Cardiac Electrophysiology Vascular Medicine and Endovascular Interventions Winston WARD MD May 11, 2019 19:08 POS
--- NOTE | 2019-05-11 20:25 | Progress Note ---
Subjective Subjective/Events-last exam Doing much better. Would like to transition to NC rather then the vapotherm she is on now. Tolerating PO diet. Has not been out of bed since procedure. This AM insertion site is bleeding. Review of Systems Pulmonary: Dyspnea, Cough Cardiovascular: No: Chest Pain, Palpitations Musculoskeletal: shoulder pain (Left shoulder and breast ) Objective Exam Last Set of Vital Signs Vital Signs Date Time Temp Pulse Resp B/P (MAP) Pulse Ox O2 Delivery O2 Flow Rate FiO2 05/11/19 20:00 36.8 05/11/19 18:00 79 136/63 (87) 95 High Flow N/C 5.00 05/11/19 16:42 36 05/11/19 16:00 28 Capillary Refill : Less Than 3 Seconds I&O Intake and Output 05/11/19 00:00 Intake Total 1260 ml Output Total 4150 ml Balance -2890 ml Intake Oral 800 ml IV Total 460 ml Output Urine Total 4150 ml General: Alert, Oriented X3, Mild Distress (with minimal exertion) HEENT: Mucous Memb Moist/[place] Lungs: Other (diminished breath sounds, minimal increased work of breathing with minimal exertion) Heart: Regular Rate, No Murmurs Abdomen: Normal Bowel Sounds, Soft, No Tenderness, No Masses Extremities: Other (Left UE and breast with brusing, soft, moderate ttp) Neuro: Sensation Intact, Cranial Nerves 3-12 NL Results/Procedures Lab Laboratory Tests 05/10/19 23:51: Glucometer 230H 05/11/19 03:20: White Blood Count 10.7, Red Blood Count 3.90L, Hemoglobin 10.8L, Hematocrit 37, Mean Corpuscular Volume 94, Mean Corpuscular Hemoglobin 28, Mean Corpuscular Hemoglobin Concent 29L, Red Cell Distribution Width 15.0H, Platelet Count 154, Mean Platelet Volume 10.5H, Neutrophils (%) (Auto) 87H, Lymphocytes (%) (Auto) 5L, Monocytes (%) (Auto) 9, Eosinophils (%) (Auto) 0, Basophils (%) (Auto) 0, Neutrophils # (Auto) 9.2H, Lymphocytes # (Auto) 0.5L, Monocytes # (Auto) 0.9, Eosinophils # (Auto) 0.0, Basophils # (Auto) 0.0, Sodium Level 141, Potassium Level 4.1, Chloride Level 89L, Carbon Dioxide Level 38H, Anion Gap 14, Blood Urea Nitrogen 31H, Creatinine 0.74, Estimat Glomerular Filtration Rate > 60, BUN/Creatinine Ratio 42, Glucose Level 149H, Calcium Level 7.7L, Corrected Calcium 8.0L, Phosphorus Level 4.9H, Magnesium Level 2.3, Total Bilirubin 0.6, Aspartate Amino Transf (AST/SGOT) 10, Alanine Aminotransferase (ALT/SGPT) 15, Alkaline Phosphatase 61, Total Protein 5.5L, Albumin 3.6, Triglycerides Level 133 05/11/19 16:03: Glucometer 299H Microbiology 05/04/19 Blood Culture - Final, Complete No growth 05/09/19 Gram Stain - Final, Complete 05/09/19 Sputum Culture - Final, Complete Usual upper respiratory leatha Assessment/Plan Assessment/Plan (1) Acute and chronic respiratory failure Status: Acute Assessment & Plan: 05/08: On Vapotherm, will titrate as possible, MAT protocol 05/09: Patient will be intubated for procedure and will have transfer to ICU after procedure 05/10: Patient required prolonged intubation following ICD placement, Dr Hull managing vent, appreciate recommendations 05/11: Will titrate to High flow NC if tolerated, improving (2) Acute on chronic heart failure Status: Acute Assessment & Plan: 05/08: Cardiology consulted and managing, appreciate recommendations Qualifiers: Qualified Codes: I50.43 - Acute on chronic combined systolic (congestive) and diastolic (congestive) heart failure (3) Anasarca Status: Chronic Assessment & Plan: 05/09: Lasix BID, continue to monitor renal function (4) Nonsustained ventricular tachycardia Status: Chronic Assessment & Plan: 05/08: Considering ICD placement during this admission 05/09: Plan for placement today 05/10: ICD successfully placed yesterday 05/11: Moderate bruising into left breast and left UE, monitor hgb (5) Atrial fibrillation Status: Chronic Assessment & Plan: 05/08: Patient high fall risk with multiple falls and is not a good candidate for anticoagulation Qualifiers: Qualified Codes: I48.0 - Paroxysmal atrial fibrillation (6) Volume overload Status: Acute Qualifiers: Qualified Codes: E87.70 - Fluid overload, unspecified (7) Obesity, morbid, BMI 40.0-49.9 Status: Chronic (8) DVT prophylaxis Status: Acute Assessment & Plan: Lovenox Clinical Quality Measures DVT/VTE Risk/Contraindication: Risk Factor Score Per Nursin RFS Level Per Nursing on Admit: 4+=Very High SHAHID SPENCER MD May 11, 2019 20:25 POS
[2019-05-12] VITALS (7 sets, daily range): BP systolic 111–129; BP diastolic 67–82
[2019-05-12] MEDS: methylPREDNISolone 40 MG/ML (Solu-MEDROL) VIAL IV SCH ×5 (00:07→23:58)
[2019-05-12] MEDS: DILTIAZEM 30 MG (CARDIZEM) TAB PO SCH ×5 (00:08→23:58)
[2019-05-12] MEDS: RT-ALBUTEROL/IPRATROPIUM 3 ML (DUONEB) VIAL INH SCH ×6 (02:50→21:26)
[2019-05-12 04:03] LABS: BASOPHILS % (AUTO) 0 % (0-10); EOSINOPHILS % (AUTO) 0 % (0-10); HEMATOCRIT 34 % (35-52); HEMOGLOBIN 10.3 G/DL (11.5-16.0); LYMPHOCYTES # (AUTO) 0.5 X 10^3 (1.0-4.0); LYMPHOCYTES % (AUTO) 5 % (12-44); MEAN CORPUSCULAR HEMOGLOBIN 28 PG (25-34); MEAN CORPUSCULAR HGB CONC 30 G/DL (32-36); MEAN CORPUSCULAR VOLUME 91 FL (80-99); MEAN PLATELET VOLUME 9.9 FL (7.4-10.4); MONOCYTES # (AUTO) 0.5 X 10^3 (0.0-1.0); MONOCYTES % (AUTO) 5 % (0-12); NEUTROPHILS # (AUTO) 9.3 X 10^3 (1.8-7.8); NEUTROPHILS % (AUTO) 90 % (42-75); PLATELET COUNT 151 10^3/uL (130-400); WHITE BLOOD COUNT 10.3 10^3/uL (4.3-11.0)
[2019-05-12 04:21] LABS: ALANINE AMINOTRANSFERASE 10 U/L (0-55); ALBUMIN 3.4 GM/DL (3.2-4.5); ALKALINE PHOSPHATASE 58 U/L (40-136); BILIRUBIN,TOTAL 0.5 MG/DL (0.1-1.0); BUN/CREATININE RATIO 49; CALCIUM 7.5 MG/DL (8.5-10.1); CARBON DIOXIDE 35 MMOL/L (21-32); CHLORIDE 90 MMOL/L (98-107); CREATININE SERUM 0.75 MG/DL (0.60-1.30); GFR ESTIMATED > 60; GLUCOSE 240 MG/DL (70-105); MAGNESIUM 2.3 MG/DL (1.6-2.4); PHOSPHORUS 4.5 MG/DL (2.3-4.7); POTASSIUM 3.9 MMOL/L (3.6-5.0); SODIUM 141 MMOL/L (135-145); TOTAL PROTEIN 5.5 GM/DL (6.4-8.2)
[2019-05-12] MEDS: PIPERACILLIN/TAZOBACTAM (BULK) 4.5 GM in NS (IVPB) 100 ML IV SCH ×3 (04:27→21:03)
[2019-05-12] MEDS: MAGNESIUM 1 GM/100 ML IVPB 100 ML IV SCH (04:35)
[2019-05-12] MEDS: KCL 20 MEQ TAB (K-DUR) PO SCH (04:35)
[2019-05-12] MEDS: POTASSIUM CL 10MEQ/50ML IVPB 50 ML IV SCH (04:35)
--- NOTE | 2019-05-12 05:32 | Pulmonary Progress Note ---
Subjective Time Seen by a Provider: 05:31 Subjective/Events-last exam Pt is doing better. Sepsis Event Evaluation Height, Weight, BMI Height: '" Weight: lbs. oz. kg; 48.00 BMI Method: Exam Exam Vital Signs Date Time Temp Pulse Resp B/P (MAP) Pulse Ox O2 Delivery O2 Flow Rate FiO2 05/12/19 04:00 36.6 59 20 113/69 (84) 95 High Flow N/C 5.00 05/12/19 02:50 93 High Flow N/C 4.00 05/12/19 01:00 106 05/12/19 00:00 36.4 68 20 125/75 (92) 93 High Flow N/C 5.00 05/11/19 23:25 93 High Flow N/C 4.00 05/11/19 20:46 96 126/72 (90) 94 High Flow N/C 5.00 05/11/19 20:00 94 120/69 (86) 94 High Flow N/C 5.00 05/11/19 20:00 36.8 05/11/19 20:00 High Flow N/C 5.00 05/11/19 19:00 90 124/80 (95) 93 High Flow N/C 5.00 05/11/19 19:00 90 05/11/19 18:00 79 136/63 (87) 95 High Flow N/C 5.00 05/11/19 17:57 94 High Flow N/C 4.00 05/11/19 17:00 98 102/92 (95) 89 High Flow N/C 5.00 05/11/19 16:42 36.5 89 94 36 05/11/19 16:00 36.5 05/11/19 16:00 90 28 103/87 (92) 93 High Flow N/C 5.00 05/11/19 16:00 93 High Flow N/C 5.00 05/11/19 15:00 76 27 115/61 (79) 93 High Flow N/C 5.00 05/11/19 14:00 74 39 124/69 (87) 91 High Flow N/C 5.00 05/11/19 13:23 94 High Flow N/C 7.00 05/11/19 13:00 107 05/11/19 13:00 107 12 High Flow N/C 5.00 05/11/19 12:00 96 26 127/117 (120) 93 High Flow N/C 5.00 05/11/19 12:00 93 High Flow N/C 5.00 05/11/19 12:00 36.3 05/11/19 11:05 High Flow N/C 5.00 05/11/19 11:00 104 24 125/70 (88) 93 High Flow N/C 7.00 05/11/19 10:18 High Flow N/C 7.00 05/11/19 10:13 93 High Flow N/C 7.00 05/11/19 10:12 93 High Flow N/C 7.00 05/11/19 10:00 99 18 109/58 (75) 95 Vapotherm 25.00 60.00 05/11/19 09:00 96 51 120/95 (103) 91 Vapotherm 25.00 60.00 05/11/19 08:05 92 Vapotherm 15.00 30 05/11/19 08:00 105 34 85/65 (72) 91 Vapotherm 25.00 60.00 05/11/19 07:00 106 128/76 (93) 93 Vapotherm 25.00 60.00 05/11/19 07:00 106 05/11/19 06:43 93 Vapotherm 15.00 55 05/11/19 06:00 81 110/74 (86) 93 Vapotherm 25.00 60.00 I & O 05/12/19 07:00 Intake Total 1320 ml Output Total 3550 ml Balance -2230 ml Height & Weight Height: '" Weight: lbs. oz. kg; 48.00 BMI Method: General Appearance: WD/WN, Chronically ill, Mild Distress, Obese, Other (sedated on vent) HEENT: PERRL/EOMI, Normal ENT Inspection Neck: Non Tender, Supple Respiratory: Normal Breath Sounds, Decreased Breath Sounds Cardiovascular: Regular Rate, Rhythm Capillary Refill: Less Than 3 Seconds Gastrointestinal: non tender, soft Extremity: Pedal Edema Skin: Normal Color, Warm/Dry Lymphatic: No Adenopathy Results Lab Laboratory Tests 05/11/19 03:20 05/12/19 03:40 Assessment/Plan Assessment/Plan Acute on chronic respiratory failure Extubated yesterday -PT is approved for home vent to mask. DME will set it up upon discharge. -DuoNeb q 4 -solumedrol 40 Q 6 -Zosyn Atelectasis - Pt is requiring high flow oxygen r/o PNA -Strong productive cough of Rodríguez sputum -Repeat Sputum culture -IS Debility -PT/OT History of recurrent nonsustained ventricular tachycardia, history of syncope in the past. Patient has an attempt for ICD placement and became severely hypoxemic during induction of sedation. Procedure was canceled. Pulmonary edema and bilateral pleural effusions COPDAE -solumedrol -SVNs with duoneb Q 4 and add pulmicort BID CHFAE -acute on chronic left ventricular diastolic dysfunction -Lasix -Echo -Cardiology following -Cardiac catheterization was done in December 2018 in [facility] and reported having nonobstructive coronary artery disease Obesity OHS -Will benefit from home vent to mask Anemia -Monitor -Check occult stool Paroxysmal atrial fibrillation Peripheral edema, improving slowly Hypertension Hyperlipidemia Morbid obesity PANKAJ VALENTINE DO May 12, 2019 05:32 POS
[2019-05-12] MEDS: inSUlin ASPART (NovoLOG) 1 UNIT/0.01 ML (CHARGE PER UNIT) SC SCH ×4 (06:28→21:04)
[2019-05-12] MEDS: FUROSEMIDE 40 MG/4 ML INJ (LASIX) IVP SCH ×2 (06:28→17:56)
[2019-05-12] MEDS: CATHETER FLUSH 10 ML SYR IV SCH ×3 (06:28→21:04)
[2019-05-12] MEDS: RT-BUDESONIDE NEBS 0.5 MG/2ML (PULMICORT) AMP INH SCH ×2 (07:15→21:26)
--- NOTE | 2019-05-12 08:38 | Diagnostic Imaging Report ---
INDICATION: Dyspnea. COMPARISON: 05/11/2019 TECHNIQUE: Single radiograph the chest dated 05/12/2019. FINDINGS: Pacer device is again identified with the battery pack overlying the left chest. The cardiac silhouette is enlarged, though stable. Mild central pulmonary vascular congestion is again noted. Mild bibasilar prominent interstitial opacities are again identified, greater within the left lung base. This appears stable from the right lung base though slightly worsened within the left lung base. No pneumothorax. Osseous structures appear stable. IMPRESSION: Bibasilar atelectasis and/or pneumonitis, slightly worsening within the left lung base. Persistent cardiomegaly with mild central pulmonary vascular congestion. Dictated by: Dictated on workstation # [id number]
--- NOTE | 2019-05-12 10:07 | Physical Therapy Daily Note ---
PT Daily Note-Current Subjective Patient agrees to PT, however, refuses to attempt ambulation to restroom and requested commode. Pain Numeric Pain Scale: 5-Moderate Pain Location: Left Location Body Site: Shoulder Pain Description: Acute Mental Status Patient Orientation: Normal For Age Attachments: Oxygen, Nova Catheter, IV Transfers SCALE: Activities may be completed with or without assistive devices. 5-Jkojxblykt-qqynvck completes the activity by him/herself with no assistance from a helper. 5-Set-up or Clean-up Assistance-helper sets up or cleans up; patient completes activity. [place] assists only prior to or following the activity. 4-Supervision or Touching Assistance-helper provides verbal cues and/or touching/steadying and/or contact guard assistance as patient completes activity. Assistance may be provided throughout the activity or intermittently. 3-Partial/Moderate Assistance-helper does LESS THAN HALF the effort. [place] lifts, holds or supports trunk or limbs, but provides less than half the effort. 2-Substantial/Maximal Assistance-helper does MORE THAN HALF the effort. [place] lifts or holds trunk or limbs and provides more than half the effort. 3-Mbshjgloa-fkevbp does ALL the effort. Patient does none of the effort to complete the activity. Or, the assistance of 2 or more helpers is required for the patient to complete the activity. If activity was not attempted, code reason: 7-Patient Refused. 9-Not Applicable-not attempted and the patient did not perform the activity before the current illness, exacerbation or injury. 10-Not Attempted due to Environmental Limitations-(lack of equipment, weather restraints, etc.). 88-Not Attempted due to Medical Conditions or Safety Concerns. Roll Left & Right (QC): 5 Sit to Lying (QC): 5 Sit to Stand (QC): 4 Chair/Chd-kj-Ylwor Xfer(QC): 4 Toilet Transfer (QC): 4 SBA to CGA for mobility and utilizes SBQC for mobility Weight Bearing Right Lower Extremity: Right Weight Bearing/Tolerated Left Lower Extremity: Left Weight Bearing/Tolerated Gait Training Distance: 5' Gait Assistive Device: Cane Small Base Quad Exercises Seated Therapy Exercises: Ankle pumps, Long arc quads Seated Reps: 15 Assessment Patient requested to remain on commode for BM and ceased PT. PT to increase activity as tolerated by patient. PT Hay Farmer Goals Hay Farmer Goals PT Hay Farmer Goals Time Frame: May 20, 2019 Roll Left & Right (QC): 5 Sit to Lying (QC): 5 Lying-Sitting on Side/Bed(QC): 5 Sit to Stand (QC): 5 Chair/Biz-vc-Ednde Xfer(QC): 5 Toilet Transfer (QC): 5 Car Transfer (QC): 5 Does the Patient Walk: Yes Walk 10 feet (QC): 5 Walk 50ft with 2 Turns (QC): 5 Walk 150 ft (QC): 5 Walking 10ft on Uneven Surface: 5 1 Step (curb) (QC): 9 4 Steps (QC): 9 12 Steps (QC): 9 Picking up an Object (QC): 88 Does the Pt use WC or Scooter?: No Type: N/A Type: N/A PT Plan Treatment/Plan Treatment Plan: Continue Plan of Care Treatment Plan: Bed Mobility, Education, Functional Activity Georges, Functional Strength, Gait, Safety, Therapeutic Exercise, Transfers Treatment Duration: May 20, 2019 Frequency: 6 times per week Estimated Hrs Per Day: .25 hour per day Patient and/or Family Agrees t: Yes Time/GCodes Time In: 810 Time Out: 820 Total Billed Treatment Time: 10 Total Billed Treatment 1 visit EX 10min EDMOND STRICKLAND PT May 12, 2019 10:07 POS
--- NOTE | 2019-05-12 11:39 | Occupational Ther Daily Note ---
OT Current Status-Daily Note Subjective RN reports pt okay for therapy. Pt sitting in chair, agreeable Mental Status/Objective Attachments: Noav Catheter, Oxygen ADL-Treatment Pt washed face with set up while seated in chair. Combed hair with min assist to comb back of head. Pt declined other ADL activity. Pt states she wants to get stronger and more mobile, but is afraid of falling. Educated pt on safe sit to stand technique. Pt performed sit to stand with min to CGA x3 trials with seated rest breaks between trials. Pt requests to remain seated in chair after session. All needs met. Therapy Code Descriptions/Definitions Functional [place] Measure: 0=Not Assessed/NA 4=Minimal Assistance 1=Total Assistance 5=Supervision or Setup 2=Maximal Assistance 6=Modified [place] 3=Moderate Assistance 7=Complete IndependenceSCALE: Activities may be completed with or without assistive devices. 6-Kjctxufvwl-dypmlhs completes the activity by him/herself with no assistance from a helper. 5-Set-up or Clean-up Assistance-helper sets up or cleans up; patient completes activity. [place] assists only prior to or following the activity. 4-Supervision or Touching Assistance-helper provides verbal cues and/or touching/steadying and/or contact guard assistance as patient completes activity. Assistance may be provided throughout the activity or intermittently. 3-Partial/Moderate Assistance-helper does LESS THAN HALF the effort. [place] lifts, holds or supports trunk or limbs, but provides less than half the effort. 2-Substantial/Maximal Assistance-helper does MORE THAN HALF the effort. [place] lifts or holds trunk or limbs and provides more than half the effort. 4-Khlpxnznz-nwmlrh does ALL the effort. Patient does none of the effort to complete the activity. Or, the assistance of 2 or more helpers is required for the patient to complete the activity. If activity was not attempted, code reason: 7-Patient Refused. 9-Not Applicable-not attempted and the patient did not perform the activity before the current illness, exacerbation or injury. 10-Not Attempted due to Environmental Limitations-(lack of equipment, weather restraints, etc.). 88-Not Attempted due to Medical Conditions or Safety Concerns. OT Short Term Goals Short Term Goals Time Frame: May 18, 2019 Eatin Oral hygiene: 5 Toileting hygiene: 3 OT Pizza Delivery Driver Goals Pizza Delivery Driver Goals Time Frame: May 25, 2019 Eating (QC): 6 Oral Hygiene (QC): 6 Toileting Hygiene (QC): 5 Shower/Bathe Self (QC): 9 Upper Body Dressing (QC): 9 Lower Body Dressing (QC): 9 On/Off Footwear (QC): 9 Additional Goals: 1-Demonstrate ADL Tasks, 2-Verbalize Understanding, 3- ImproveStrength/Georges 1=Demonstrate adherence to instructed precautions during ADL tasks. 2=Patient will verbalize/demonstrate understanding of assistive devices/ modifications for ADL. 3=Patient will improve strength/tolerance for activity to enable patient to perform ADL's. OT Education/Plan Discharge Recommendations Plan/Recommendations: Continue POC Treatment Plan/Plan of Care Patient would benefit from OT for education, treatment and training to promote independence in ADL's, mobility, safety and/or upper extremity function for ADL's. Plan of Care: ADL Retraining, Functional Mobility, UE Funct Exercise/Act Treatment Duration: May 25, 2019 Frequency: 5 times per week Estimated Hrs Per Day: .25 hour per day Agreement: Yes Rehab Potential: Fair Time/GCodes Start Time: 10:26 Stop Time: 10:46 Total Time Billed (hr/min): 20 Billed Treatment Time 1 visit, FA(20minutes) MARIETTA PAIGE OT May 12, 2019 11:39 POS
[2019-05-12] MEDS: CARVEDILOL 3.125 MG (COREG) TABLET PO SCH ×2 (11:49→21:04)
[2019-05-12] MEDS: PANTOPRAZOLE 40 MG (PROTONIX) VIAL IV SCH (11:49)
[2019-05-12] MEDS: ASPIRIN E.C. 81 MG (ECOTRIN) TAB PO SCH (11:49)
[2019-05-12] MEDS: AZITHROMYCIN INJECTION 250 MG in NS (IVPB) 250 ML IV SCH (11:49)
[2019-05-12] MEDS: ENOXAPARIN 300 MG/3 ML (LOVENOX) MULTI-DOSE VIAL SQ SCH ×2 (11:50→21:04)
--- NOTE | 2019-05-12 11:54 | Cardiology Progress Note ---
Subjective Date Seen by Provider: May 12, 2019 Time Seen by Provider: 11:52 Subjective/Events-last exam patient is and sitting in a recliner, feeling better. No new complaint Review of Systems General: No Chills, No Night Sweats; Fatigue, Malaise; No Appetite, No Other HEENT: No Head Aches, No Visual Changes, No Eye Pain, No Ear Pain, No Dysphasia, No Sinus Congestion, No Post Nasal Drip, No Sore Throat, No Other Pulmonary: Dyspnea; No Cough, No Pleuritic Chest Pain, No Other Cardiovascular: No: Chest Pain, Palpitations, Orthopnea, Paroxysmal Noc. Dyspnea, Edema, Lt Headedness, Other Objective-Cardiology Exam Last Set of Vital Signs Vital Signs 05/11/19 05/12/19 05/12/19 16:42 07:31 11:05 Temp 37.0 Pulse 84 Resp 24 B/P (MAP) 111/71 (84) Pulse Ox 90 O2 Delivery Nasal Cannula O2 Flow Rate 4.00 FiO2 36 Capillary Refill : Less Than 3 Seconds I&O Intake and Output 05/12/19 00:00 Intake Total 2100 ml Output Total 4750 ml Balance -2650 ml Intake Oral 1850 ml IV Total 250 ml Output Urine Total 4750 ml General: Alert, Oriented X3, Mild Distress (with minimal exertion) HEENT: Mucous Memb Moist/[place] Neck: Supple, No JVD, No Thyromegaly Lungs: Other (diminished breath sounds, minimal increased work of breathing with minimal exertion) Heart: Regular Rate, Normal S1, Normal S2, No Murmurs Abdomen: Normal Bowel Sounds, Soft, No Tenderness, No Masses Extremities: Other (Left UE and breast with brusing, soft, moderate ttp) Skin: No Rashes, No Breakdown Neuro: Normal Speech, Strength at 5/5 X4 Ext, Sensation Intact, Cranial Nerves 3-12 NL Psych/Mental Status: Mental Status NL, Mood NL Results Lab Laboratory Tests 05/12/19 03:40 A/P-Cardiology Admission Diagnosis Congestive heart failure Coronary artery disease Hypertension Hyperlipidemia Assessment/Plan Status post acute respiratory failure, extubated and doing better, continue to monitor Paroxysmal atrial fibrillation, having multiple episodes of tachycardia today. doing better, continue to monitor High risk of stroke, I will place on therapeutic dose of Lovenox, previously was considered high risk of falling and she was not a candidate for long-term oral anticoagulation, will monitor at this time and evaluate with physical therapy Recurrent nonsustained ventricular tachycardia, history of syncope, paroxysmal atrial fibrillation, had a loop recorder extracted, status post dual-chamber ICD implant by Dr. Ward, DFT testing. Site is healing well. Congestive heart failure, acute on chronic left ventricular diastolic dysfunction, hypertensive heart disease. Continue to monitor Cardiac catheterization was done in December 2018 in [facility] and reported having nonobstructive coronary artery disease COPD, restrictive lung disease, stage IV, FEV1 0.56, currently ventilator dependent, Dr. Hull is managing Paroxysmal atrial fibrillation, had history of recurrent falls with severe consequences, she was not considered a candidate for oral anticoagulation, will evaluate with physical therapy Type II myocardial infarction, probably secondary to hypoxemia, mild elevation in troponin, had a cardiac catheterization on January 11, 2019 in [facility] and reported normal coronaries. Continue to monitor Peripheral edema, improving slowly Hypertension, monitor blood pressure Hyperlipidemia, restart home medication Morbid obesity Clinical Quality Measures DVT/VTE Risk/Contraindication: Risk Factor Score Per Nursin RFS Level Per Nursing on Admit: 4+=Very High LINDY GROVER MD May 12, 2019 11:54 POS
--- NOTE | 2019-05-12 13:04 | NUR ---
IRF Evaluation Order received to evaluate patient for the ARU. Chart review complete and findings discussed with Dr. Love - patient denied admission. This denial is due to patient's inability to tolerative intensive therapies, at this time. Thank you for this referral.
--- NOTE | 2019-05-12 14:01 | NUR ---
"RD ASSESSMENT PMHx: afib; HTN; GERD; chronic constipation/diarrhea PT INTERACTION: Pt was awake and pleasant during nutrition assessment for LOS. Pt states current appetite is pretty good and has been for a while. Note pt avg PO intake of 88% x4d, per chart review. Pt states following a regular diet at home, and has some issues chewing food d/t missing teeth. Pt states having no lower teeth. Pt states no recent issues with n/v/c/d at this time, and last BM was 05/12. Note pt not currently on bowel regimen, per chart review. Pt states recent wt gain d/t fluid buildup, but could not give an amount or timeframe. Note unable to determine recent wt hx, per chart review. ABNORMAL NUTRITION-RELATED LAB VALUES LOW: Cl 90; Ca 7.5; Pro 5.5 HIGH: BUN 37; glu 240 Est. kcal needs: 4817-9329 kcal | 15-18 kcal/kg Est. Pro needs: 97-121 g Pro | 0.8-1.0 g Pro/kg PES STATEMENT: Given pt's PO intake, no nutrition diagnosis at this time (NO-1.1) INTERVENTION: Continue with current diet order of CHO 60g/m 3snack diet, with modifiers of 2g Na, and DYS3 Advanced with Ground Meat. Will continue to follow and reassess as pt needs and status change. MONITOR/EVALUATE: PO Intake; Plan of Care; Hydration Status; Weight Status; Lab Values Clarence Aguirre, MS, RD, LD"
--- NOTE | 2019-05-12 15:45 | Progress Note ---
Subjective Subjective/Events-last exam Patient feeling much better. No longer bleeding from insertion site. Extensive brusing on Left chest and breast. Tolerating PO diet and ambulation. Review of Systems Pulmonary: Dyspnea, Cough Cardiovascular: No: Chest Pain, Palpitations, Orthopnea Gastrointestinal: No: Nausea, Vomiting, Abdominal Pain Musculoskeletal: shoulder pain (Left shoulder and breast pain) Neurological: Weakness, Incoordination Objective Exam Last Set of Vital Signs Vital Signs Date Time Temp Pulse Resp B/P (MAP) Pulse Ox O2 Delivery O2 Flow Rate FiO2 05/12/19 14:26 76 05/12/19 11:05 90 Nasal Cannula 4.00 05/12/19 07:31 37.0 24 111/71 (84) 05/11/19 16:42 36 Capillary Refill : Less Than 3 Seconds I&O Intake and Output 05/12/19 00:00 Intake Total 2100 ml Output Total 4750 ml Balance -2650 ml Intake Oral 1850 ml IV Total 250 ml Output Urine Total 4750 ml General: Alert, Oriented X3, Cooperative, No Acute Distress HEENT: Mucous Memb Moist/[place] Lungs: Normal Air Movement, Other (diffuse wheezing and increased work of breathing with minimal exertion) Abdomen: Normal Bowel Sounds, Soft, No Tenderness, No Masses Extremities: Other (1+ pitting edema bilaterally) Skin: Other (extensive brusing in LUE and left breast, mild ttp) Results/Procedures Lab Laboratory Tests 05/11/19 16:03: Glucometer 299H 05/11/19 20:39: Glucometer 259H 05/12/19 03:40: White Blood Count 10.3, Red Blood Count 3.74L, Hemoglobin 10.3L, Hematocrit 34L, Mean Corpuscular Volume 91, Mean Corpuscular Hemoglobin 28, Mean Corpuscular Hemoglobin Concent 30L, Red Cell Distribution Width 15.0H, Platelet Count 151, Mean Platelet Volume 9.9, Neutrophils (%) (Auto) 90H, Lymphocytes (%) (Auto) 5L, Monocytes (%) (Auto) 5, Eosinophils (%) (Auto) 0, Basophils (%) (Auto) 0, Neutrophils # (Auto) 9.3H, Lymphocytes # (Auto) 0.5L, Monocytes # (Auto) 0.5, Eosinophils # (Auto) 0.0, Basophils # (Auto) 0.0, Sodium Level 141, Potassium Level 3.9, Chloride Level 90L, Carbon Dioxide Level 35H, Anion Gap 16H, Blood Urea Nitrogen 37H, Creatinine 0.75, Estimat Glomerular Filtration Rate > 60, BUN/Creatinine Ratio 49, Glucose Level 240H, Calcium Level 7.5L, Corrected Calcium 8.0L, Phosphorus Level 4.5, Magnesium Level 2.3, Total Bilirubin 0.5, Aspartate Amino Transf (AST/SGOT) 10, Alanine Aminotransferase (ALT/SGPT) 10, Alkaline Phosphatase 58, Total Protein 5.5L, Albumin 3.4 05/12/19 11:44: Glucometer 288H Microbiology 05/04/19 Blood Culture - Final, Complete No growth 05/09/19 Gram Stain - Final, Complete 05/09/19 Sputum Culture - Final, Complete Usual upper respiratory leatha Assessment/Plan Assessment/Plan (1) Acute and chronic respiratory failure Status: Acute Assessment & Plan: 05/08: On Vapotherm, will titrate as possible, MAT protocol 05/09: Patient will be intubated for procedure and will have transfer to ICU after procedure 05/10: Patient required prolonged intubation following ICD placement, Dr Hull managing vent, appreciate recommendations 05/11: Will titrate to High flow NC if tolerated, improving 05/12: At baseline (2) Acute on chronic heart failure Status: Acute Assessment & Plan: 05/08: Cardiology consulted and managing, appreciate r ecommendations Qualifiers: Qualified Codes: I50.43 - Acute on chronic combined systolic (congestive) an d diastolic (congestive) heart failure (3) Posttraumatic hematoma of left breast Status: Acute Assessment & Plan: 05/12: 2/2 ICD placement, discussed gentle massage and elevation Qualifiers: Qualified Codes: S20.02XA - Contusion of left breast, initial encounter (4) Anasarca Status: Chronic Assessment & Plan: 05/09: Lasix BID, continue to monitor renal function (5) Nonsustained ventricular tachycardia Status: Chronic Assessment & Plan: 05/08: Considering ICD placement during this admission 05/09: Plan for placement today 05/10: ICD successfully placed yesterday 05/11: Moderate bruising into left breast and left UE, monitor hgb (6) Atrial fibrillation Status: Chronic Assessment & Plan: 05/08: Patient high fall risk with multiple falls and is not a good candidate for anticoagulation Qualifiers: Qualified Codes: I48.0 - Paroxysmal atrial fibrillation (7) Volume overload Status: Acute Qualifiers: Qualified Codes: E87.70 - Fluid overload, unspecified (8) Obesity, morbid, BMI 40.0-49.9 Status: Chronic (9) DVT prophylaxis Status: Acute Assessment & Plan: Lovenox (10) Debility Status: Acute Assessment & Plan: 05/12: patient to be evaluated for IRF, currently no bed available Clinical Quality Measures DVT/VTE Risk/Contraindication: Risk Factor Score Per Nursin RFS Level Per Nursing on Admit: 4+=Very High SHAHID SPENCER MD May 12, 2019 15:45 POS
--- NOTE | 2019-05-12 16:30 | NUR ---
TRANSFERRED FROM ICU TO ROOM 430 PER CHAIR (RECLINER). ALERT AND ORIENTED. COLOR PALE. SKIN W/D. O2 ON AT 5 L PER MIN PER HIGH FLOW N/C. HEART RATE SOUNDS REGULAR AND DIM. 2 + EDEMA IN LOWER EXT. LEFT UPPER CHEST DRESSING WITH GAUZE AND FOAM TAPE IN PLACE. LARGE AMT BRUISING ON CHEST NOTED. LEGS ELEVATED. TELEMETRY ON. SALINE LOCKS TO RIGHT UPPER ARM AND LEFT WRIST IN PLACE. NAVARRO CATH IN PLACE WITH CLEAR YELLOW URINE. DENIES PAIN AT THIS TIME.
[2019-05-13] MEDS: RT-ALBUTEROL/IPRATROPIUM 3 ML (DUONEB) VIAL INH SCH ×5 (02:33→20:22)
[2019-05-13 04:25] VITALS: BP 135/85
[2019-05-13] MEDS: PIPERACILLIN/TAZOBACTAM (BULK) 4.5 GM in NS (IVPB) 100 ML IV SCH ×3 (04:35→21:59)
[2019-05-13 05:52] LABS: BASOPHILS % (AUTO) 0 % (0-10); EOSINOPHILS % (AUTO) 0 % (0-10); HEMATOCRIT 32 % (35-52); HEMOGLOBIN 9.7 G/DL (11.5-16.0); LYMPHOCYTES # (AUTO) 0.5 X 10^3 (1.0-4.0); LYMPHOCYTES % (AUTO) 5 % (12-44); MEAN CORPUSCULAR HEMOGLOBIN 28 PG (25-34); MEAN CORPUSCULAR HGB CONC 30 G/DL (32-36); MEAN CORPUSCULAR VOLUME 91 FL (80-99); MEAN PLATELET VOLUME 10.5 FL (7.4-10.4); MONOCYTES # (AUTO) 0.5 X 10^3 (0.0-1.0); MONOCYTES % (AUTO) 5 % (0-12); NEUTROPHILS # (AUTO) 9.3 X 10^3 (1.8-7.8); NEUTROPHILS % (AUTO) 91 % (42-75); PLATELET COUNT 155 10^3/uL (130-400); RED CELL DISTRIBUTION WIDTH 14.7 % (10.0-14.5); WHITE BLOOD COUNT 10.2 10^3/uL (4.3-11.0)
[2019-05-13 06:11] LABS: ALANINE AMINOTRANSFERASE 15 U/L (0-55); ALBUMIN 3.5 GM/DL (3.2-4.5); ALKALINE PHOSPHATASE 52 U/L (40-136); BILIRUBIN,TOTAL 0.5 MG/DL (0.1-1.0); BUN/CREATININE RATIO 43; CALCIUM 7.7 MG/DL (8.5-10.1); CARBON DIOXIDE 35 MMOL/L (21-32); CHLORIDE 93 MMOL/L (98-107); CREATININE SERUM 0.74 MG/DL (0.60-1.30); GFR ESTIMATED > 60; GLUCOSE 240 MG/DL (70-105); MAGNESIUM 2.2 MG/DL (1.6-2.4); PHOSPHORUS 4.1 MG/DL (2.3-4.7); POTASSIUM 3.9 MMOL/L (3.6-5.0); SODIUM 140 MMOL/L (135-145); TOTAL PROTEIN 5.3 GM/DL (6.4-8.2); TRIGLYCERIDES 90 MG/DL (<150)
[2019-05-13] MEDS: POTASSIUM CL 10MEQ/50ML IVPB 50 ML IV SCH (06:13)
[2019-05-13] MEDS: MAGNESIUM 1 GM/100 ML IVPB 100 ML IV SCH (06:14)
[2019-05-13] MEDS: KCL 20 MEQ TAB (K-DUR) PO SCH (06:14)
[2019-05-13] MEDS: methylPREDNISolone 40 MG/ML (Solu-MEDROL) VIAL IV SCH ×3 (06:20→19:01)
[2019-05-13] MEDS: FUROSEMIDE 40 MG/4 ML INJ (LASIX) IVP SCH ×2 (06:20→15:59)
[2019-05-13] MEDS: inSUlin ASPART (NovoLOG) 1 UNIT/0.01 ML (CHARGE PER UNIT) SC SCH ×4 (06:20→22:00)
[2019-05-13] MEDS: DILTIAZEM 30 MG (CARDIZEM) TAB PO SCH ×4 (06:20→19:01)
[2019-05-13] MEDS: CATHETER FLUSH 10 ML SYR IV SCH ×3 (06:21→22:14)
[2019-05-13 08:00] VITALS: BP 130/72
[2019-05-13] MEDS: ASPIRIN E.C. 81 MG (ECOTRIN) TAB PO SCH (09:11)
[2019-05-13] MEDS: PANTOPRAZOLE 40 MG (PROTONIX) VIAL IV SCH (09:12)
[2019-05-13] MEDS: HYDROcodone/APAP 7.5 MG/325 MG (LORTAB, LORCET PLUS) TABLET PO PRN (09:12)
[2019-05-13] MEDS: CARVEDILOL 3.125 MG (COREG) TABLET PO SCH ×2 (09:13→22:00)
[2019-05-13] MEDS: AZITHROMYCIN INJECTION 250 MG in NS (IVPB) 250 ML IV SCH (09:13)
--- NOTE | 2019-05-13 09:59 | Diagnostic Imaging Report ---
INDICATION: Dyspnea. Portable chest obtained at 04:08 a.m. is compared to yesterday FINDINGS: There is cardiomegaly with mild central vascular prominence. There is bibasilar infiltrate. There is no pneumothorax or pleural fluid. Pacemaker is stable. There are old right-sided rib fractures. IMPRESSION: Cardiomegaly and mild central vascular prominence. Unchanged bibasilar infiltrates. No new abnormality. Dictated by: Dictated on workstation # [id number]
[2019-05-13] MEDS: ENOXAPARIN 300 MG/3 ML (LOVENOX) MULTI-DOSE VIAL SQ SCH ×2 (10:00→21:59)
[2019-05-13] MEDS: RT-BUDESONIDE NEBS 0.5 MG/2ML (PULMICORT) AMP INH SCH (11:05)
[2019-05-13 12:00] VITALS: BP 137/87
--- NOTE | 2019-05-13 12:49 | Progress Note - Hospitalist ---
Subjective HPI/CC On Admission Date Seen by Provider: May 13, 2019 Time Seen by Provider: 12:15 Chief complaint: Shortness of breath with clinical decline requiring ICU transfer History of present illness: This is a 68-year-old white female who has a history of a recent hospital stay in [place] with preparation of placing a defibrillator but could not accomplish that due to instability and questionable discharge that was recommended on hospice but patient regardless presented to the ER with shortness of breath found to have florid congestive heart failure and work-up included cardiology management but when I saw her at the bedside she appeared to be abreu ashen and pale becoming hypoxic and patient required ICU transfer just based on clinical status decompensation. Patient was found to have respiratory acidosis with hypercapnia requiring BiPAP and may ultimately require intubation. Patient appears to be extremely chronically ill and unsure of her ejection fraction but it appears to be very low with a very very poor prognosis. Subjective/Events-last exam Patient feeling better although still quite weak. As she asked when she can get out of the sling which would improve her mobility. She has no shortness of breath at rest and denies chest pain when she is moving her left arm. Objective Exam Vital Signs Vital Signs Date Time Temp Pulse Resp B/P (MAP) Pulse Ox O2 Delivery O2 Flow Rate FiO2 05/13/19 12:18 95 05/13/19 11:07 91 Nasal Cannula 5.00 05/13/19 08:00 36.5 20 130/72 (91) 05/11/19 16:42 36 Capillary Refill : Less Than 3 Seconds General Appearance: No Apparent Distress, Chronically ill, Obese Respiratory: Lungs Clear, Normal Breath Sounds, No Accessory Muscle Use, No Respiratory Distress Cardiovascular: Regular Rate, Rhythm Results/Procedures Lab Laboratory Tests 05/13/19 05:22 Patient resulted labs reviewed. Assessment/Plan Assessment and Plan Assess & Plan/Chief Complaint (1) Acute and chronic respiratory failure Status: Acute Assessment & Plan: 05/08: On Vapotherm, will titrate as possible, MAT protocol 05/09: Patient will be intubated for procedure and will have transfer to ICU after procedure 05/10: Patient required prolonged intubation following ICD placement, Dr Hull managing vent, appreciate recommendations 05/11: Will titrate to High flow NC if tolerated, improving 05/12: At baseline 05/13: Respiration status continues to improve with slow improvement in de conditioning the major factor for continued hospitalization at this point. (2) Acute on chronic heart failure Status: Acute Assessment & Plan: 05/08: Cardiology consulted and managing, appreciate recommendations Qualifiers: Qualified Codes: I50.43 - Acute on chronic combined systolic (congestive) and diastolic (congestive) heart failure (3) Posttraumatic hematoma of left breast Status: Acute Assessment & Plan: 05/12: 2/2 ICD placement, discussed gentle massage and elevation Qualifiers: Qualified Codes: S20.02XA - Contusion of left breast, initial encounter (4) Anasarca Status: Chronic Assessment & Plan: 05/09: Lasix BID, continue to monitor renal function (5) Nonsustained ventricular tachycardia Status: Chronic Assessment & Plan: 05/08: Considering ICD placement during this admission 05/09: Plan for placement today 05/10: ICD successfully placed yesterday 05/11: Moderate bruising into left breast and left UE, monitor hgb (6) Atrial fibrillation Status: Chronic Assessment & Plan: 05/08: Patient high fall risk with multiple falls and is not a good candidate for anticoagulation Qualifiers: Qualified Codes: I48.0 - Paroxysmal atrial fibrillation (7) Volume overload Status: Acute Qualifiers: Qualified Codes: E87.70 - Fluid overload, unspecified (8) Obesity, morbid, BMI 40.0-49.9 Status: Chronic (9) DVT prophylaxis Status: Acute Assessment & Plan: Lovenox (10) Debility Status: Acute Assessment & Plan: 05/12: patient to be evaluated for IRF, currently no bed availabl Clinical Quality Measures DVT/VTE Risk/Contraindication: Risk Factor Score Per Nursin RFS Level Per Nursing on Admit: 4+=Very High MARIXA DIAZ MD May 13, 2019 12:49 POS
--- NOTE | 2019-05-13 14:04 | Physical Therapy Daily Note ---
PT Daily Note-Current Subjective Pt in chair, agreeable with encouragement. Pt reports "That (QC) just wobbles in my hand when I try to use it". Agreeable to attempt standing activity but then Pt quickly states, "I have to sit down". Mental Status Patient Orientation: Person, Place, Time, Situation Attachments: Oxygen, Nova Catheter Transfers SCALE: Activities may be completed with or without assistive devices. 3-Nrljexybqr-ohxdzeu completes the activity by him/herself with no assistance from a helper. 5-Set-up or Clean-up Assistance-helper sets up or cleans up; patient completes activity. Clare assists only prior to or following the activity. 4-Supervision or Touching Assistance-helper provides verbal cues and/or touching/steadying and/or contact guard assistance as patient completes activity. Assistance may be provided throughout the activity or intermittently. 3-Partial/Moderate Assistance-helper does LESS THAN HALF the effort. Clare lifts, holds or supports trunk or limbs, but provides less than half the effort. 2-Substantial/Maximal Assistance-helper does MORE THAN HALF the effort. Clare lifts or holds trunk or limbs and provides more than half the effort. 0-Rvnanohhv-lrbdjb does ALL the effort. Patient does none of the effort to complete the activity. Or, the assistance of 2 or more helpers is required for the patient to complete the activity. If activity was not attempted, code reason: 7-Patient Refused. 9-Not Applicable-not attempted and the patient did not perform the activity before the current illness, exacerbation or injury. 10-Not Attempted due to Environmental Limitations-(lack of equipment, weather restraints, etc.). 88-Not Attempted due to Medical Conditions or Safety Concerns. Sit to Stand (QC): 4 Weight Bearing Right Lower Extremity: Right Weight Bearing/Tolerated Left Lower Extremity: Left Weight Bearing/Tolerated Exercises Supine Ex: Ankle pumps, Quad Set, Glut sets Supine Reps: 15 Seated Therapy Exercises: Long arc quads Seated Reps: 15 Ex in recliner. Sit<->stand with CGA x 1. Pt stood with QC x 1' with SBA before stating she needed to sit. Returned to recliner with O2 in situ, needs met. Treatments Ther ex for functional strengthening. Assessment Current Status: Fair Progress Pt tolerated well but self-limits activity. PT Correction Goals Correction Goals PT Care Coordinator Goals Time Frame: May 20, 2019 Roll Left & Right (QC): 5 Sit to Lying (QC): 5 Lying-Sitting on Side/Bed(QC): 5 Sit to Stand (QC): 5 Chair/Wqb-nh-Tpvjn Xfer(QC): 5 Toilet Transfer (QC): 5 Car Transfer (QC): 5 Does the Patient Walk: Yes Walk 10 feet (QC): 5 Walk 50ft with 2 Turns (QC): 5 Walk 150 ft (QC): 5 Walking 10ft on Uneven Surface: 5 1 Step (curb) (QC): 9 4 Steps (QC): 9 12 Steps (QC): 9 Picking up an Object (QC): 88 Does the Pt use WC or Scooter?: No Type: N/A Type: N/A PT Plan Problem List Problem List: Activity Tolerance, Functional Strength, Safety, Balance, Gait, Transfer, Bed Mobility Treatment/Plan Treatment Plan: Continue Plan of Care Treatment Plan: Bed Mobility, Education, Functional Activity Georges, Functional Strength, Gait, Safety, Therapeutic Exercise, Transfers Treatment Duration: May 20, 2019 Frequency: 6 times per week Estimated Hrs Per Day: .25 hour per day Patient and/or Family Agrees t: Yes Time/GCodes Time In: 1123 Time Out: 1137 Total Billed Treatment Time: 14 Total Billed Treatment 1, Ex x 14' JULIETH QURESHI DPGerald May 13, 2019 14:04 POS
[2019-05-13 16:00] VITALS: BP 137/87
[2019-05-13 19:33] VITALS: BP 129/76
[2019-05-13 23:25] VITALS: BP 146/100
[2019-05-14] MEDS: methylPREDNISolone 40 MG/ML (Solu-MEDROL) VIAL IV SCH ×3 (00:11→20:48)
[2019-05-14] MEDS: DILTIAZEM 30 MG (CARDIZEM) TAB PO SCH ×5 (00:12→23:58)
[2019-05-14] MEDS: RT-BUDESONIDE NEBS 0.5 MG/2ML (PULMICORT) AMP INH SCH ×3 (00:36→22:55)
[2019-05-14] MEDS: RT-ALBUTEROL/IPRATROPIUM 3 ML (DUONEB) VIAL INH SCH ×7 (00:37→22:56)
[2019-05-14 04:45] VITALS: BP 116/72
[2019-05-14] MEDS: PIPERACILLIN/TAZOBACTAM (BULK) 4.5 GM in NS (IVPB) 100 ML IV SCH ×3 (05:55→20:48)
[2019-05-14] MEDS: CATHETER FLUSH 10 ML SYR IV SCH ×3 (05:55→20:49)
[2019-05-14] MEDS: FUROSEMIDE 40 MG/4 ML INJ (LASIX) IVP SCH ×2 (05:56→17:27)
[2019-05-14] MEDS: inSUlin ASPART (NovoLOG) 1 UNIT/0.01 ML (CHARGE PER UNIT) SC SCH ×4 (05:56→20:48)
[2019-05-14 05:59] LABS: BASOPHILS % (AUTO) 0 % (0-10); EOSINOPHILS % (AUTO) 0 % (0-10); HEMATOCRIT 32 % (35-52); HEMOGLOBIN 9.6 G/DL (11.5-16.0); LYMPHOCYTES # (AUTO) 0.4 X 10^3 (1.0-4.0); LYMPHOCYTES % (AUTO) 4 % (12-44); MEAN CORPUSCULAR HEMOGLOBIN 27 PG (25-34); MEAN CORPUSCULAR HGB CONC 30 G/DL (32-36); MEAN CORPUSCULAR VOLUME 90 FL (80-99); MEAN PLATELET VOLUME 9.8 FL (7.4-10.4); MONOCYTES # (AUTO) 0.7 X 10^3 (0.0-1.0); MONOCYTES % (AUTO) 6 % (0-12); NEUTROPHILS # (AUTO) 9.9 X 10^3 (1.8-7.8); NEUTROPHILS % (AUTO) 90 % (42-75); PLATELET COUNT 175 10^3/uL (130-400); RED CELL DISTRIBUTION WIDTH 14.9 % (10.0-14.5)
[2019-05-14 06:21] LABS: ALANINE AMINOTRANSFERASE 15 U/L (0-55); ALBUMIN 3.4 GM/DL (3.2-4.5); ALKALINE PHOSPHATASE 60 U/L (40-136); BILIRUBIN,TOTAL 0.3 MG/DL (0.1-1.0); BUN/CREATININE RATIO 44; CALCIUM 7.5 MG/DL (8.5-10.1); CARBON DIOXIDE 31 MMOL/L (21-32); CHLORIDE 93 MMOL/L (98-107); CREATININE SERUM 0.75 MG/DL (0.60-1.30); GFR ESTIMATED > 60; GLUCOSE 337 MG/DL (70-105); MAGNESIUM 2.2 MG/DL (1.6-2.4); SODIUM 139 MMOL/L (135-145); TOTAL PROTEIN 5.4 GM/DL (6.4-8.2)
[2019-05-14] MEDS: POTASSIUM CL 10MEQ/50ML IVPB 50 ML IV SCH (06:28)
[2019-05-14] MEDS: MAGNESIUM 1 GM/100 ML IVPB 100 ML IV SCH (06:28)
[2019-05-14] MEDS: KCL 20 MEQ TAB (K-DUR) PO SCH (06:29)
[2019-05-14 08:00] VITALS: BP 124/76
--- NOTE | 2019-05-14 08:06 | Diagnostic Imaging Report ---
INDICATION: Dyspnea. COMPARISON: 05/13/2019 FINDINGS: Single frontal radiograph view of the chest was obtained and again demonstrates mild cardiomegaly. Pulmonary vasculature, however is within normal limits. Left-sided AICD is noted. Lungs continue to show patchy alveolar opacities within both lung bases, not significantly change compared to prior exam. There is no large effusion or pneumothorax. Osseous structures show no gross acute abnormalities. IMPRESSION: 1. Cardiomegaly, but no evidence of overt failure. 2. Stable patchy bibasilar atelectasis and/or infiltrate. Dictated by: Dictated on workstation # [id number]
[2019-05-14] MEDS: AZITHROMYCIN INJECTION 250 MG in NS (IVPB) 250 ML IV SCH (08:24)
[2019-05-14] MEDS: PANTOPRAZOLE 40 MG (PROTONIX) VIAL IV SCH (08:24)
[2019-05-14] MEDS: CARVEDILOL 3.125 MG (COREG) TABLET PO SCH ×2 (08:25→20:49)
[2019-05-14] MEDS: ASPIRIN E.C. 81 MG (ECOTRIN) TAB PO SCH (08:25)
[2019-05-14] MEDS: ENOXAPARIN 300 MG/3 ML (LOVENOX) MULTI-DOSE VIAL SQ SCH ×2 (08:25→20:49)
--- NOTE | 2019-05-14 11:51 | Progress Note - Hospitalist ---
Subjective HPI/CC On Admission Date Seen by Provider: May 14, 2019 Time Seen by Provider: 11:00 Chief complaint: Shortness of breath with clinical decline requiring ICU transfer History of present illness: This is a 68-year-old white female who has a history of a recent hospital stay in [place] with preparation of placing a defibrillator but could not accomplish that due to instability and questionable discharge that was recommended on hospice but patient regardless presented to the ER with shortness of breath found to have florid congestive heart failure and work-up included cardiology management but when I saw her at the bedside she appeared to be abreu ashen and pale becoming hypoxic and patient required ICU transfer just based on clinical status decompensation. Patient was found to have respiratory acidosis with hypercapnia requiring BiPAP and may ultimately require intubation. Patient appears to be extremely chronically ill and unsure of her ejection fraction but it appears to be very low with a very very poor prognosis. Subjective/Events-last exam Patient reports several loose stools she had one small accident in bed denies abdominal pain or tenesmus. Nursing staff report her last stool was a little loose but formed with no water. She reports is getting a little bit easier to get around with less chest discomfort. Objective Exam Vital Signs Vital Signs Date Time Temp Pulse Resp B/P (MAP) Pulse Ox O2 Delivery O2 Flow Rate FiO2 05/14/19 09:35 High Flow N/C 5.00 05/14/19 08:00 36.4 91 16 124/76 (92) 93 05/11/19 16:42 36 Capillary Refill : Less Than 3 Seconds General Appearance: No Apparent Distress, Obese Respiratory: No Accessory Muscle Use, No Respiratory Distress, Decreased Breath Sounds (Posteriorly chest clear however no wheezing rales or rhonchi appreciated.) Cardiovascular: Regular Rate, Rhythm (Heart tones distant unchanged no murmurs appreciated), No Gallop Gastrointestinal: Normal Bowel Sounds, No Organomegaly, No Pulsatile Mass, Non Tender, Soft Results/Procedures Lab Laboratory Tests 05/14/19 05:26 Patient resulted labs reviewed. Assessment/Plan Assessment and Plan Assess & Plan/Chief Complaint (1) Acute and chronic respiratory failure Status: Acute Assessment & Plan: 05/08: On Vapotherm, will titrate as possible, MAT protocol 05/09: Patient will be intubated for procedure and will have transfer to ICU after procedure 05/10: Patient required prolonged intubation following ICD placement, Dr Hull managing vent, appreciate recommendations 05/11: Will titrate to High flow NC if tolerated, improving 05/12: At baseline 05/13: Respiration status continues to improve with slow improvement in deconditioning the major factor for continued hospitalization at this point. 05/14: Continued improvement we will decrease Solu-Medrol to 40 mg IV every 12 for which continued tapering and switch to oral prednisone should be considered in the near future (2) Acute on chronic heart failure Status: Acute Assessment & Plan: 05/08: Cardiology consulted and managing, appreciate recommendations Qualifiers: Qualified Codes: I50.43 - Acute on chronic combined systolic (congestive) and diastolic (congestive) heart failure (3) Posttraumatic hematoma of left breast Status: Acute Assessment & Plan: 05/12: 2/2 ICD placement, discussed gentle massage and elevation Qualifiers: Qualified Codes: S20.02XA - Contusion of left breast, initial encounter (4) Anasarca Status: Chronic Assessment & Plan: 05/09: Lasix BID, continue to monitor renal function (5) Nonsustained ventricular tachycardia Status: Chronic Assessment & Plan: 05/08: Considering ICD placement during this admission 05/09: Plan for placement today 05/10: ICD successfully placed yesterday 05/11: Moderate bruising into left breast and left UE, monitor hgb (6) Atrial fibrillation Status: Chronic Assessment & Plan: 05/08: Patient high fall risk with multiple falls and is not a good candidate for anticoagulation Qualifiers: Qualified Codes: I48.0 - Paroxysmal atrial fibrillation (7) Volume overload Status: Acute Qualifiers: Qualified Codes: E87.70 - Fluid overload, unspecified (8) Obesity, morbid, BMI 40.0-49.9 Status: Chronic (9) DVT prophylaxis Status: Acute Assessment & Plan: Lovenox (10) Debility Status: Acute Assessment & Plan: 05/12: patient to be evaluated for IRF, currently no bed [place] il[facility] Clinical Quality Measures DVT/VTE Risk/Contraindication: Risk Factor Score Per Nursin RFS Level Per Nursing on Admit: 4+=Very High MARIXA DIAZ MD May 14, 2019 11:51 POS
[2019-05-14 12:00] VITALS: BP 139/91
[2019-05-14] MEDS: LOPERAMIDE 2 MG (IMODIUM) TABLET PO PRN (12:21)
[2019-05-14 16:00] VITALS: BP 134/77
[2019-05-14 20:00] VITALS: BP 120/66
[2019-05-15] VITALS (7 sets, daily range): BP systolic 113–132; BP diastolic 60–90
[2019-05-15] MEDS: RT-ALBUTEROL/IPRATROPIUM 3 ML (DUONEB) VIAL INH SCH ×6 (02:29→23:12)
[2019-05-15] MEDS: PIPERACILLIN/TAZOBACTAM (BULK) 4.5 GM in NS (IVPB) 100 ML IV SCH ×3 (05:34→20:33)
[2019-05-15] MEDS: DILTIAZEM 30 MG (CARDIZEM) TAB PO SCH ×3 (05:35→20:09)
[2019-05-15] MEDS: FUROSEMIDE 40 MG/4 ML INJ (LASIX) IVP SCH ×2 (05:35→16:59)
[2019-05-15] MEDS: inSUlin ASPART (NovoLOG) 1 UNIT/0.01 ML (CHARGE PER UNIT) SC SCH ×4 (05:35→20:34)
[2019-05-15] MEDS: CATHETER FLUSH 10 ML SYR IV SCH ×3 (05:35→20:10)
[2019-05-15 06:15] LABS: BASOPHILS % (AUTO) 0 % (0-10); EOSINOPHILS % (AUTO) 0 % (0-10); HEMATOCRIT 33 % (35-52); HEMOGLOBIN 9.8 G/DL (11.5-16.0); LYMPHOCYTES # (AUTO) 0.7 X 10^3 (1.0-4.0); LYMPHOCYTES % (AUTO) 5 % (12-44); MEAN CORPUSCULAR HEMOGLOBIN 28 PG (25-34); MEAN CORPUSCULAR HGB CONC 30 G/DL (32-36); MEAN CORPUSCULAR VOLUME 92 FL (80-99); MEAN PLATELET VOLUME 10.8 FL (7.4-10.4); MONOCYTES % (AUTO) 8 % (0-12); NEUTROPHILS # (AUTO) 10.8 X 10^3 (1.8-7.8); NEUTROPHILS % (AUTO) 86 % (42-75); PLATELET COUNT 194 10^3/uL (130-400); RED CELL DISTRIBUTION WIDTH 14.7 % (10.0-14.5); WHITE BLOOD COUNT 12.5 10^3/uL (4.3-11.0)
[2019-05-15 06:27] LABS: ALANINE AMINOTRANSFERASE 18 U/L (0-55); ALBUMIN 3.5 GM/DL (3.2-4.5); ALKALINE PHOSPHATASE 58 U/L (40-136); BILIRUBIN,TOTAL 0.5 MG/DL (0.1-1.0); BUN/CREATININE RATIO 36; CALCIUM 7.8 MG/DL (8.5-10.1); CARBON DIOXIDE 36 MMOL/L (21-32); CHLORIDE 91 MMOL/L (98-107); CREATININE SERUM 0.78 MG/DL (0.60-1.30); GFR ESTIMATED > 60; GLUCOSE 245 MG/DL (70-105); MAGNESIUM 2.1 MG/DL (1.6-2.4); PHOSPHORUS 4.2 MG/DL (2.3-4.7); POTASSIUM 3.9 MMOL/L (3.6-5.0); SODIUM 139 MMOL/L (135-145); TOTAL PROTEIN 5.4 GM/DL (6.4-8.2)
--- NOTE | 2019-05-15 06:31 | Progress Note - Hospitalist ---
[facility] 05/15/19 0631: Subjective HPI/CC On Admission Date Seen by Provider: May 15, 2019 Time Seen by Provider: 08:00 Chief complaint: Shortness of breath with clinical decline requiring ICU transfer History of present illness: This is a 68-year-old white female who has a history of a recent hospital stay in [place] with preparation of placing a defibrillator but could not accomplish that due to instability and questionable discharge that was recommended on hospice but patient regardless presented to the ER with shortness of breath found to have florid congestive heart failure and work-up included cardiology management but when I saw her at the bedside she appeared to be abreu ashen and pale becoming hypoxic and patient required ICU transfer just based on clinical status decompensation. Patient was found to have respiratory acidosis with hypercapnia requiring BiPAP and may ultimately require intubation. Patient appears to be extremely chronically ill and unsure of her ejection fraction but it appears to be very low with a very very poor prognosis. Subjective/Events-last exam Patient states that she feels the same. She appears to be doing better. Complains of being hungry and wants more food Does not like the diet she is on. Sputum culture showed usual respiratory leatha. Patient WBC is 12.5, but is on prednisone Review of Systems General: No Chills, No Other (fevers) Pulmonary: Dyspnea, Cough Cardiovascular: No: Chest Pain, Palpitations Gastrointestinal: No: Nausea, Vomiting, Diarrhea, Constipation Objective Exam Vital Signs Vital Signs Date Time Temp Pulse Resp B/P (MAP) Pulse Ox O2 Delivery O2 Flow Rate FiO2 05/15/19 13:00 82 05/15/19 12:11 94 Nasal Cannula 4.00 05/15/19 12:00 36.5 20 132/83 (99) 05/15/19 10:22 36 Capillary Refill : Less Than 3 Seconds General Appearance: No Apparent Distress, Obese HEENT: PERRL/EOMI Neck: Non Tender, Supple Respiratory: Chest Non Tender (Post op bruising), No Accessory Muscle Use, No Respiratory Distress, Decreased Breath Sounds, Other (Currently using Nasal Cannula) Cardiovascular: Regular Rate, Rhythm, No JVD, No Murmur, Normal Peripheral Pulses (2/4 radial pulses bilaterally) Extremity: No Calf Tenderness Neurologic/Psychiatric: Alert, Oriented x3 Results/Procedures Lab Laboratory Tests 05/15/19 04:45 05/15/19 04:55 Patient resulted labs reviewed. Assessment/Plan Assessment and Plan Assess & Plan/Chief Complaint COPD exacerbation CHF Edema Shortness of breath Currently working on D/C healy and monitoring Bowel and Bladder function. Patient then can be sent back home with daughter. Continue monitoring with daily x-rays and labs Patient requiring oxygen support because of increased respiratory effort. May require intubation if O2 stats drop Clinical Quality Measures DVT/VTE Risk/Contraindication: Risk Factor Score Per Nursin RFS Level Per Nursing on Admit: 4+=Very High DASTHELMA WYLIE 05/15/192101: Subjective Subjective/Events-last exam Pt refusing PT and OT Pt really not a candidate for inpatient rehab due to her poor motivation and refusal to work with PT and get out of bed Wants to eat more, she's not eating enough she says ICD was placed and she is doing very well with that Denies any significant pain Lower extremity edema is resolved Overall poor prognosis remains considering she has minimal motivation to participate in therapies Review of Systems General: Fatigue Pulmonary: Dyspnea Objective Exam General Appearance: No Apparent Distress, Chronically ill, Obese Respiratory: Lungs Clear, Decreased Breath Sounds Cardiovascular: Regular Rate, Rhythm Extremity: Pedal Edema Neurologic/Psychiatric: Alert, Depressed Affect Skin: Normal Color, Warm/Dry Assessment/Plan Assessment and Plan Assess & Plan/Chief Complaint Assessment: s/p ICD placement Debility DC to [place] or home tomorrow Diagnosis/Problems Diagnosis/Problems (1) S/P ICD (internal cardiac defibrillator) procedure (2) Acute on chronic heart failure Status: Acute Qualifiers: Qualified Codes: I50.43 - Acute on chronic combined systolic (congestive) and diastolic (congestive) heart failure (3) Debility Status: Acute (4) Atrial fibrillation Status: Chronic Qualifiers: Qualified Codes: I48.0 - Paroxysmal atrial fibrillation (5) Anasarca Status: Chronic (6) Acute and chronic respiratory failure Status: Acute Supervisory-Addendum Brief Verification & Attestation Participated in pt care: history, MDM, physical Personally performed: exam, history, MDM, supervision of care Care discussed with: Medical Student Procedures: n/a Results interpretation: Verified all documentation Verification and Attestation of Medical Student E/M Service A medical student performed and documented this service in my presence. I reviewed and verified all information documented by the medical student and made modifications to such information, when appropriate. I personally performed the physical exam and medical decision making. Thelma Das, May 15, 2019,21:01 SHANICE BIRD May 15, 2019 06:31 THELMA ARRIAGA DO May 15, 2019 21:02 POS
[2019-05-15] MEDS: MAGNESIUM 1 GM/100 ML IVPB 100 ML IV SCH (06:43)
[2019-05-15] MEDS: KCL 20 MEQ TAB (K-DUR) PO SCH (06:43)
[2019-05-15] MEDS: POTASSIUM CL 10MEQ/50ML IVPB 50 ML IV SCH (06:43)
--- NOTE | 2019-05-15 07:40 | Diagnostic Imaging Report ---
EXAMINATION: Chest 1 view HISTORY: Dyspnea. COMPARISON: 05/14/2019 FINDINGS: There is interval decrease in central pulmonary vascular congestion and interstitial edema. Stable cardiomegaly. Stable configuration of the left pectoral ICD. No large pleural effusion or pneumothorax. No acute osseous abnormalities. IMPRESSION: 1. Improved aeration in the lungs likely representing improving pulmonary edema. Dictated by: Dictated on workstation # [id number]
[2019-05-15] MEDS: PANTOPRAZOLE 40 MG (PROTONIX) VIAL IV SCH (08:28)
[2019-05-15] MEDS: ASPIRIN E.C. 81 MG (ECOTRIN) TAB PO SCH (08:28)
[2019-05-15] MEDS: methylPREDNISolone 40 MG/ML (Solu-MEDROL) VIAL IV SCH ×2 (08:28→21:00)
[2019-05-15] MEDS: AZITHROMYCIN 250 MG TAB (ZITHROMAX) PO SCH (08:28)
[2019-05-15] MEDS: CARVEDILOL 3.125 MG (COREG) TABLET PO SCH ×2 (08:28→20:09)
--- NOTE | 2019-05-15 08:39 | NUR ---
PRIOR TO MORNING MEDICATION PULSE WAS 87 B/P 118/66.
--- NOTE | 2019-05-15 09:13 | Pulmonary Progress Note ---
Subjective Date Seen by a Provider: May 15, 2019 Time Seen by a Provider: 09:00 Subjective/Events-last exam The patient is awake/alert and sitting in the chair. She answers all questions appropriately and fully cooperates with the physical exam. She states that she is "feeling better" today. She is still having shortness of breath with movement but states that it has improved since yesterday. She is having a cough that is productive of yellow/brown sputum. She denies chest pain or fevers. She has no concerns at this time. Sepsis Event Evaluation Height, Weight, BMI Height: '" Weight: lbs. oz. kg; 48.00 BMI Method: Exam Exam Vital Signs Date Time Temp Pulse Resp B/P (MAP) Pulse Ox O2 Delivery O2 Flow Rate FiO2 05/15/19 07:00 104 05/15/19 04:00 36.6 77 18 123/70 (87) 97 High Flow N/C 4.00 05/15/19 02:29 93 Nasal Cannula 4.00 05/15/19 01:00 90 05/15/19 00:00 36.6 75 20 113/60 (77) 92 High Flow N/C 5.00 05/14/19 23:01 99 Nasal Cannula 4.00 05/14/19 22:56 94 Nasal Cannula 4.00 05/14/19 21:00 High Flow N/C 5.00 05/14/19 20:00 36.1 92 18 120/66 (84) 96 High Flow N/C 5.00 05/14/19 19:00 98 05/14/19 16:00 36.5 70 18 134/77 (96) 96 High Flow N/C 5.00 05/14/19 14:52 93 Nasal Cannula 4.00 05/14/19 12:15 94 05/14/19 12:00 36.2 81 18 139/91 (107) 91 High Flow N/C 5.00 05/14/19 11:48 94 Nasal Cannula 4.00 05/14/19 09:35 High Flow N/C 5.00 I & O 05/15/19 07:00 Intake Total 2560 ml Output Total 3725 ml Balance -1165 ml Height & Weight Height: '" Weight: lbs. oz. kg; 48.00 BMI Method: General Appearance: No Apparent Distress, Obese HEENT: PERRL/EOMI, Normal ENT Inspection Neck: Non Tender, Supple Respiratory: Lungs Clear, No Accessory Muscle Use, No Respiratory Distress, Decreased Breath Sounds (Posteriorly chest clear however no wheezing rales or rhonchi appreciated.) Cardiovascular: Regular Rate, Rhythm (Heart tones distant unchanged no murmurs appreciated), No Gallop Capillary Refill: Less Than 3 Seconds Gastrointestinal: non tender, soft Extremity: Pedal Edema Neurologic/Psychiatric: Alert, Oriented x3 Skin: Normal Color, Warm/Dry Lymphatic: No Adenopathy Results Lab Laboratory Tests 05/14/19 05:26 05/15/19 04:45 05/15/19 04:55 Assessment/Plan Assessment/Plan Acute on chronic respiratory failure -PT is approved for home vent to mask. DME will set it up upon discharge. -DuoNeb q 4 -solumedrol 40 Q 6 -Zosyn Atelectasis - -Productive cough of Rodríguez sputum -Repeat Sputum culture- showe usual upper respiratory leatha Debility -PT/OT History of recurrent nonsustained ventricular tachycardia, history of syncope in the past. -Patient has an attempt for ICD placement and became severely hypoxemic during induction of sedation. Procedure was canceled. Pulmonary edema and bilateral pleural effusions -Lasix COPDAE -solumedrol -SVNs with duoneb Q 4 and add pulmicort BID CHFAE -acute on chronic left ventricular diastolic dysfunction -Lasix -Echo -Cardiology following -Cardiac catheterization was done in December 2018 in [facility] and reported having nonobstructive coronary artery disease Obesity OHS -Will benefit from home vent to mask Anemia -Monitor -Check occult stool Paroxysmal atrial fibrillation Peripheral edema, improving slowly Hypertension Hyperlipidemia Morbid obesity LENCHO HOOD MED STUDENT May 15, 2019 09:13 POS
--- NOTE | 2019-05-15 10:09 | Cardiology Progress Note ---
Subjective Date Seen by Provider: May 15, 2019 Time Seen by Provider: 10:07 Subjective/Events-last exam Patient is sitting in a chair, complaining of generalized fatigue and loss of energy, dyspnea Review of Systems General: No Chills, No Night Sweats; Fatigue; No Malaise, No Appetite, No Other HEENT: No Head Aches, No Visual Changes, No Eye Pain, No Ear Pain, No Dy sphasia, No Sinus Congestion, No Post Nasal Drip, No Sore Throat, No Other Pulmonary: Dyspnea; No Cough, No Pleuritic Chest Pain, No Other Cardiovascular: No: Chest Pain, Palpitations, Orthopnea, Paroxysmal Noc. Dyspnea, Edema, Lt Headedness, Other Objective-Cardiology Exam Last Set of Vital Signs Vital Signs 05/11/19 05/15/19 05/15/19 16:42 08:00 09:00 Temp 36.5 Pulse 87 Resp 18 B/P (MAP) 118/66 (83) Pulse Ox 93 O2 Delivery High Flow N/C O2 Flow Rate 4.00 FiO2 36 Capillary Refill : Less Than 3 Seconds I&O Intake and Output 05/15/19 00:00 Intake Total 2660 ml Output Total 4000 ml Balance -1340 ml Intake Oral 2660 ml Output Urine Total 4000 ml # Bowel Movements 2 General: Alert, Oriented X3, Cooperative, No Acute Distress HEENT: Mucous Memb Moist/[place] Neck: Supple, No JVD, No Thyromegaly Lungs: Normal Air Movement, Other (diffuse wheezing and increased work of breathing with minimal exertion) Heart: Regular Rate, Normal S1, Normal S2, No Murmurs Abdomen: Normal Bowel Sounds, Soft, No Tenderness, No Masses Extremities: No Clubbing, Other (1+ pitting edema bilaterally) Skin: No Rashes, Other (extensive brusing in LUE and left breast, mild ttp) Neuro: Normal Speech, Strength at 5/5 X4 Ext, Sensation Intact, Cranial Nerves 3-12 NL Psych/Mental Status: Mental Status NL, Mood NL Results Lab Laboratory Tests 05/15/19 04:45 05/15/19 04:55 A/P-Cardiology Admission Diagnosis Congestive heart failure Coronary artery disease Hypertension Hyperlipidemia Assessment/Plan Status post acute respiratory failure, improving on nasal cannula oxygen at this time Debility, generalized weakness, educated on exercise and working with physical therapy. Paroxysmal atrial fibrillation, having multiple episodes of tachycardia today. doing better, continue to monitor High risk of stroke, significant bruising in the groin and the chest at the [facility] site, I will change Lovenox to DVT prophylaxis dose Recurrent nonsustained ventricular tachycardia, history of syncope, paroxysmal atrial fibrillation, had a loop recorder extracted, status post dual-chamber ICD implant by Dr. Ward, DFT testing. Site is healing well. Congestive heart failure, acute on chronic left ventricular diastolic dysfunction, hypertensive heart disease. Continue to monitor Cardiac catheterization was done in December 2018 in [facility] and reported having nonobstructive coronary artery disease COPD, restrictive lung disease, stage IV, FEV1 0.56, currently ventilator dependent, Dr. Hull is managing Paroxysmal atrial fibrillation, had history of recurrent falls with severe consequences, she was not considered a candidate for oral anticoagulation, will evaluate with physical therapy Type II myocardial infarction, probably secondary to hypoxemia, mild elevation in troponin, had a cardiac catheterization on January 11, 2019 in [facility] and reported normal coronaries. Continue to monitor Peripheral edema, improving slowly Hypertension, monitor blood pressure Hyperlipidemia, restart home medication Morbid obesity Clinical Quality Measures DVT/VTE Risk/Contraindication: Risk Factor Score Per Nursin RFS Level Per Nursing on Admit: 4+=Very High LINDY GROVER MD May 15, 2019 10:09 POS
[2019-05-15] MEDS: ENOXAPARIN 40 MG/0.4 ML (LOVENOX) SYR SQ SCH ×2 (11:11→20:09)
--- NOTE | 2019-05-15 11:32 | NUR ---
PRIOR TO MEDICATIONS AT 1132 B/P WAS: 132/83 HR 77 BPM. THIS RN WILL GIVE CARDIZEM PER PCP ORDERS.
--- NOTE | 2019-05-15 11:47 | Physical Therapy Daily Note ---
PT Daily Note-Current Subjective Patient agrees to PT. She reports Dr. Maldonado told her to remove the sling and begin using left UE. Pain Numeric Pain Scale: 3 Location: Left Location Body Site: Shoulder Pain Description: Acute Mental Status Patient Orientation: Normal For Age Attachments: Oxygen, Nova Catheter Transfers SCALE: Activities may be completed with or without assistive devices. 0-Ynornehple-isrkohr completes the activity by him/herself with no assistance from a helper. 5-Set-up or Clean-up Assistance-helper sets up or cleans up; patient completes activity. [place] assists only prior to or following the activity. 4-Supervision or Touching Assistance-helper provides verbal cues and/or touching/steadying and/or contact guard assistance as patient completes activity. Assistance may be provided throughout the activity or intermittently. 3-Partial/Moderate Assistance-helper does LESS THAN HALF the effort. [place] lifts, holds or supports trunk or limbs, but provides less than half the effort. 2-Substantial/Maximal Assistance-helper does MORE THAN HALF the effort. [place] lifts or holds trunk or limbs and provides more than half the effort. 6-Vwejbviij-rvrhjp does ALL the effort. Patient does none of the effort to complete the activity. Or, the assistance of 2 or more helpers is required for the patient to complete the activity. If activity was not attempted, code reason: 7-Patient Refused. 9-Not Applicable-not attempted and the patient did not perform the activity before the current illness, exacerbation or injury. 10-Not Attempted due to Environmental Limitations-(lack of equipment, weather restraints, etc.). 88-Not Attempted due to Medical Conditions or Safety Concerns. Sit to Stand (QC): 5 Toilet Transfer (QC): 5 Weight Bearing Right Lower Extremity: Right Weight Bearing/Tolerated Left Lower Extremity: Left Weight Bearing/Tolerated Gait Training Does the Patient Walk?: Yes Distance: 50' Walk 10 feet (QC): 5 Walk 50 ft with 2 Turns(QC): 5 Walk 150 ft (QC): 88 Walking 10ft/uneven surface-QC: 88 Gait Assistive Device: FWW safe and functional with no deviation Exercises Seated Therapy Exercises: Ankle pumps, Long arc quads Seated Reps: 15 Assessment Patient is up in recliner with needs met. Patient improving with treatment plan and is close to PLOF with gross motor skills per her report. PT Correction Goals Brim Setter Goals PT Brim Setter Goals Time Frame: May 20, 2019 Roll Left & Right (QC): 5 Sit to Lying (QC): 5 Lying-Sitting on Side/Bed(QC): 5 Sit to Stand (QC): 5 Chair/Yim-ee-Qsmbv Xfer(QC): 5 Toilet Transfer (QC): 5 Car Transfer (QC): 5 Does the Patient Walk: Yes Walk 10 feet (QC): 5 Walk 50ft with 2 Turns (QC): 5 Walk 150 ft (QC): 5 Walking 10ft on Uneven Surface: 5 1 Step (curb) (QC): 9 4 Steps (QC): 9 12 Steps (QC): 9 Picking up an Object (QC): 88 Does the Pt use WC or Scooter?: No Type: N/A Type: N/A PT Plan Treatment/Plan Treatment Plan: Continue Plan of Care Treatment Plan: Bed Mobility, Education, Functional Activity Georges, Functional Strength, Gait, Safety, Therapeutic Exercise, Transfers Treatment Duration: May 20, 2019 Frequency: 6 times per week Estimated Hrs Per Day: .25 hour per day Patient and/or Family Agrees t: Yes Time/GCodes Time In: 1100 Time Out: 1116 Total Billed Treatment Time: 16 Total Billed Treatment 1 visit FA 16 min EDMOND STRICKLAND PT May 15, 2019 11:47 POS
[2019-05-15] MEDS: RT-BUDESONIDE NEBS 0.5 MG/2ML (PULMICORT) AMP INH SCH ×2 (12:05→19:31)
--- NOTE | 2019-05-15 12:10 | NUR ---
DISCHARGE PLANNING: Spoke to patient this morning regarding discharge plan. Informed her that due to her weakness and inability to work with therapy for the 3 hours a day, it was decided that she would be declined for INPT REHAB. Spoke to daughter Precious explained to her the denial for admission to IR[facility] and discussed the options of SNF or Home with [facility] options. As mentioned in previous noting, patient has already used her 100% covered SKILLED days. She is now into her 80/20 CoPay...due to this fact they are weighing going home with [facility] as before or agreeing to SNF again. NEED to d/c Nova catheter and transition SM and Lasix to PO. She is scheduled for 1 more dose of Zosyn IV. Will see if we can d/c Nova in preparation for discharge. Addendum: 05/15/19 at 1336 by TITO CAMPBELL RN Spoke with Dr. Love and received verbal order to remove Nova catheter. This RN entered Nursing Communication order.
--- NOTE | 2019-05-15 15:59 | Occupational Ther Daily Note ---
OT Current Status-Daily Note Subjective Pt seen in room, seated in recliner chair. Pt agreeable to OT tx session; pt denies pain but states has been tired and hungry. Mental Status/Objective Patient Orientation: Person, Place, Time, Normal For Age ADL-Treatment Therapy Code Descriptions/Definitions Functional [place] Measure: 0=Not Assessed/NA 4=Minimal Assistance 1=Total Assistance 5=Supervision or Setup 2=Maximal Assistance 6=Modified [place] 3=Moderate Assistance 7=Complete IndependenceSCALE: Activities may be completed with or without assistive devices. 7-Pbqeucwuau-rcawjih completes the activity by him/herself with no assistance from a helper. 5-Set-up or Clean-up Assistance-helper sets up or cleans up; patient completes activity. [place] assists only prior to or following the activity. 4-Supervision or Touching Assistance-helper provides verbal cues and/or touching/steadying and/or contact guard assistance as patient completes activity. Assistance may be provided throughout the activity or intermittently. 3-Partial/Moderate Assistance-helper does LESS THAN HALF the effort. [place] lifts, holds or supports trunk or limbs, but provides less than half the effort. 2-Substantial/Maximal Assistance-helper does MORE THAN HALF the effort. [place] lifts or holds trunk or limbs and provides more than half the effort. 9-Vcdasxtko-yvgzny does ALL the effort. Patient does none of the effort to complete the activity. Or, the assistance of 2 or more helpers is required for the patient to complete the activity. If activity was not attempted, code reason: 7-Patient Refused. 9-Not Applicable-not attempted and the patient did not perform the activity before the current illness, exacerbation or injury. 10-Not Attempted due to Environmental Limitations-(lack of equipment, weather restraints, etc.). 88-Not Attempted due to Medical Conditions or Safety Concerns. Eating (QC): 7 Oral Hygiene (QC): 7 Shower/Bathe Self (QC): 7 Upper Body Dressing (QC): 7 Lower Body Dressing (QC): 7 Toileting Hygiene (QC): 7 Toilet Transfer (QC): 7 Other Treatment Pt denies ADL activities, pt agreeable to seated exercises. Pt reminded of LUE restrictions, completes UE theraband exercises with RUE and theraband while held by OT. Pt completes int/ ext shoulder rotations, shoulder flexion, and bicep curls (1 set of 15). Pt educated on ability to wrap theraband on R side of bed to complete, OT wrapped on bed for demonstration. Pt demonstrates competency, left in recliner with all needs met, call light in reach. Education OT Patient Education: Correct positioning, Exercise program, Home exercise program, Purpose of tx/functional activities, Reviewed precautions, Safety issues Teaching Recipient: Patient Teaching Methods: Demonstration, Discussion Response to Teaching: Verbalize Understanding, Return Demonstration OT Short Term Goals Short Term Goals Time Frame: May 18, 2019 Eatin Oral hygiene: 5 Toileting hygiene: 3 OT Prison Goals Prison Goals Time Frame: May 25, 2019 Eating (QC): 6 Oral Hygiene (QC): 6 Toileting Hygiene (QC): 5 Shower/Bathe Self (QC): 9 Upper Body Dressing (QC): 9 Lower Body Dressing (QC): 9 On/Off Footwear (QC): 9 Additional Goals: 1-Demonstrate ADL Tasks, 2-Verbalize Understanding, 3- ImproveStrength/Georges 1=Demonstrate adherence to instructed precautions during ADL tasks. 2=Patient will verbalize/demonstrate understanding of assistive devices/modifications for ADL. 3=Patient will improve strength/tolerance for activity to enable patient to perform ADL's. OT Education/Plan Problem List/Assessment Assessment: Decreased Activ Tolerance, Decreased UE Strength, Impaired I ADL's, Impaired Self-Care Skills Discharge Recommendations Plan/Recommendations: Continue POC Treatment Plan/Plan of Care Treatment,Training & Education: Yes Patient would benefit from OT for education, treatment and training to promote independence in ADL's, mobility, safety and/or upper extremity function for A DL's. Plan of Care: ADL Retraining, Functional Mobility, UE Funct Exercise/Act Treatment Duration: May 25, 2019 Frequency: 5 times per week Estimated Hrs Per Day: .25 hour per day Agreement: Yes Rehab Potential: Fair Time/GCodes Start Time: 12:48 Stop Time: 12:56 Total Time Billed (hr/min): 8 Billed Treatment Time 1, EX (8) SOFI ROCA OTR May 15, 2019 15:59 POS
--- NOTE | 2019-05-15 16:29 | Cardiology Progress Note ---
Cardiology SOAP Progress Note Subjective: No cardiac complaints. Objective: I&O/Vital Signs 05/15/19 05/15/19 05/15/19 05/15/19 07:00 08:00 09:00 10:22 Temp 36.5 36.5 Pulse 104 87 83 Resp 18 B/P (MAP) 118/66 (83) Pulse Ox 93 93 93 O2 Delivery High Flow N/C High Flow N/C O2 Flow Rate 4.00 4.00 FiO2 36 05/15/19 05/15/19 05/15/19 05/15/19 12:00 12:06 12:11 13:00 Temp 36.5 Pulse 77 82 Resp 20 B/P (MAP) 132/83 (99) Pulse Ox 95 94 94 O2 Delivery Nasal Cannula Nasal Cannula O2 Flow Rate 4.00 4.00 05/15/19 00:00 Intake Total 2260 ml Output Total 3350 ml Balance -1090 ml Bruising: moderated bruising (significant bruising noted.) Constitutional: appears stated age, AAO x 3; No apparent distress; well- developed, well-nourished Respiratory: chest is bilaterally symmetric, lungs clear to auscultation Cardiovascular: regular rate-rhythm, S1 and S2 Gastrointestional: soft, distended, audible bowel sounds; No spleenomegaly Extremities: normal range of motion, non-tender, normal inspection, pedal edema; No clubbing, No cyanosis, No significant edema Neurologic/Psychiatric: no motor/sensory deficits, alert, normal mood/affect, oriented x 3 Skin: normal color, warm/dry; No rash, No ulcerations Results/Procedures: Labs Laboratory Tests 05/14/19 20:34: Glucometer 323H 05/15/19 04:45: Sodium Level 139, Potassium Level 3.9, Chloride Level 91L, Carbon Dioxide Level 36H, Anion Gap 12, Blood Urea Nitrogen 28H, Creatinine 0.78, Estimat Glomerular Filtration Rate > 60, BUN/Creatinine Ratio 36, Glucose Level 245H, Calcium Level 7.8L, Corrected Calcium 8.2L, Phosphorus Level 4.2, Magnesium Level 2.1, Total Bilirubin 0.5, Aspartate Amino Transf (AST/SGOT) 12, Alanine Aminotransferase (ALT/SGPT) 18, Alkaline Phosphatase 58, Total Protein 5.4L, Albumin 3.5 05/15/19 04:55: White Blood Count 12.5H, Red Blood Count 3.55L, Hemoglobin 9.8L, Hematocrit 33L, Mean Corpuscular Volume 92, Mean Corpuscular Hemoglobin 28, Mean Corpuscular Hemoglobin Concent 30L, Red Cell Distribution Width 14.7H, Platelet Count 194, Mean Platelet Volume 10.8H, Neutrophils (%) (Auto) 86H, Lymphocytes (%) (Auto) 5L, Monocytes (%) (Auto) 8, Eosinophils (%) (Auto) 0, Basophils (%) (Auto) 0, Neutrophils # (Auto) 10.8H, Lymphocytes # (Auto) 0.7L, Monocytes # (Auto) 1.0, Eosinophils # (Auto) 0.0, Basophils # (Auto) 0.0 05/15/19 05:13: Glucometer 244H 05/15/19 11:27: Glucometer 271H Microbiology 05/04/19 Blood Culture - Final, Complete No growth 05/09/19 Gram Stain - Final, Complete 05/09/19 Sputum Culture - Final, Complete Usual upper respiratory leatha A/P: Assessment/Dx: Numerous episodes of sustained VT, Syncope, Idiopathic VT, PAF Plan: Numerous episodes of sustained VT on ILR interrogation with duration > 30 seconds, working diagnosis of idiopathic VT. Echocardiogram done 04/2019 showed normal LV function. Negative Cath in 12/2018. Dual-chamber ICD placed on 05/09/2019. Implantable loop recorder was removed as well. Patient tolerated procedure well and did not have any complication. Postprocedure chest x-ray did not show any pneumothorax. Atrial paced rhythm this morning. Device interrogat ion was within normal limits. Antibiotic course completed. Significant bruising noted in the left upper extremity and the left upper chest as well as the groin. Patient was on high-dose Lovenox which has been changed to DVT prophylaxis dose. Syncope, likely secondary to sustained VT. Idiopathic VT, on verapamil. PAF, will need OAC and rate controlling agent. Severe obstructive and restrictive lung disease, extubated today. Defer to Dr. Hull and the primary team. Thank you for your consultation. Please call me if you have any questions. John Ward MD, FACP, FACC, FSCAI, FHRS, CCDS Interventional Cardiology Cardiac Electrophysiology Vascular Medicine and Endovascular Interventions Winston WARD MD May 15, 2019 4:28 pm POS
[2019-05-15] MEDS: HYDROcodone/APAP 7.5 MG/325 MG (LORTAB, LORCET PLUS) TABLET PO PRN (20:11)
[2019-05-16] VITALS (14 sets, daily range): BP systolic 98–153; BP diastolic 40–85
--- NOTE | 2019-05-16 00:16 | NUR ---
pt asked this nurse not to awaken her up if she was sleeping during the night Addendum: 05/16/19 at 0017 by FATOUMATA LIVE RN Amended: Links added.
[2019-05-16] MEDS: DILTIAZEM 30 MG (CARDIZEM) TAB PO SCH ×5 (00:30→23:30)
[2019-05-16] MEDS: RT-ALBUTEROL/IPRATROPIUM 3 ML (DUONEB) VIAL INH SCH ×6 (03:25→21:39)
[2019-05-16] MEDS: HYDROcodone/APAP 7.5 MG/325 MG (LORTAB, LORCET PLUS) TABLET PO PRN ×3 (03:31→16:59)
[2019-05-16 05:05] LABS: BASOPHILS % (AUTO) 0 % (0-10); EOSINOPHILS % (AUTO) 0 % (0-10); HEMATOCRIT 29 % (35-52); HEMOGLOBIN 8.9 G/DL (11.5-16.0); LYMPHOCYTES # (AUTO) 0.9 X 10^3 (1.0-4.0); LYMPHOCYTES % (AUTO) 5 % (12-44); MEAN CORPUSCULAR HEMOGLOBIN 28 PG (25-34); MEAN CORPUSCULAR HGB CONC 31 G/DL (32-36); MEAN CORPUSCULAR VOLUME 90 FL (80-99); MEAN PLATELET VOLUME 10.3 FL (7.4-10.4); MONOCYTES # (AUTO) 1.5 X 10^3 (0.0-1.0); MONOCYTES % (AUTO) 9 % (0-12); NEUTROPHILS # (AUTO) 14.7 X 10^3 (1.8-7.8); NEUTROPHILS % (AUTO) 86 % (42-75); PLATELET COUNT 237 10^3/uL (130-400); RED CELL DISTRIBUTION WIDTH 14.9 % (10.0-14.5); WHITE BLOOD COUNT 17.1 10^3/uL (4.3-11.0)
[2019-05-16 05:19] LABS: ALBUMIN 3.5 GM/DL (3.2-4.5); BILIRUBIN,TOTAL 0.5 MG/DL (0.1-1.0); CALCIUM 7.4 MG/DL (8.5-10.1); CREATININE SERUM 1.18 MG/DL (0.60-1.30); MAGNESIUM 2.1 MG/DL (1.6-2.4); PHOSPHORUS 4.9 MG/DL (2.3-4.7); POTASSIUM 3.9 MMOL/L (3.6-5.0); TOTAL PROTEIN 5.4 GM/DL (6.4-8.2)
[2019-05-16 05:40] LABS: BAND NEUTROPHILS 4 %; LYMPHOCYTES % (MANUAL) 9 %; MONOCYTES % (MANUAL) 7 %; NEUTROPHILS % (MANUAL) 80 %
[2019-05-16 05:41] LABS: RBC MORPH NORMAL
[2019-05-16] MEDS: FUROSEMIDE 40 MG/4 ML INJ (LASIX) IVP SCH ×2 (06:17→17:00)
[2019-05-16] MEDS: inSUlin ASPART (NovoLOG) 1 UNIT/0.01 ML (CHARGE PER UNIT) SC SCH ×4 (06:17→20:52)
[2019-05-16] MEDS: MAGNESIUM 1 GM/100 ML IVPB 100 ML IV SCH (06:17)
[2019-05-16] MEDS: CATHETER FLUSH 10 ML SYR IV SCH ×3 (06:18→22:04)
[2019-05-16] MEDS: POTASSIUM CL 10MEQ/50ML IVPB 50 ML IV SCH (06:18)
[2019-05-16] MEDS: KCL 20 MEQ TAB (K-DUR) PO SCH (06:20)
--- NOTE | 2019-05-16 06:53 | Progress Note - Hospitalist ---
[facility] 05/16/19 0653: Subjective HPI/CC On Admission Date Seen by Provider: May 16, 2019 Time Seen by Provider: 08:05 Chief complaint: Shortness of breath with clinical decline requiring ICU transfer History of present illness: This is a 68-year-old white female who has a history of a recent hospital stay in [place] with preparation of placing a defibrillator but could not accomplish that due to instability and questionable discharge that was recommended on hospice but patient regardless presented to the ER with shortness of breath found to have florid congestive heart failure and work-up included cardiology management but when I saw her at the bedside she appeared to be abreu ashen and pale becoming hypoxic and patient required ICU transfer just based on clinical status decompensation. Patient was found to have respiratory acidosis with hypercapnia requiring BiPAP and may ultimately require intubation. Patient appears to be extremely chronically ill and unsure of her ejection fraction but it appears to be very low with a very very poor prognosis. Subjective/Events-last exam Catheter has been discontinued and doing well. Patient appears to be doing better Had a BM last night Does complain of pain in her abdomen on her right side States that swelling in her legs have decreased with the Lasix Review of Systems General: No Chills, No Other (fevers) HEENT: No Eye Pain, No Ear Pain Pulmonary: Dyspnea (with exertion); No Cough Cardiovascular: Edema (Decreased); No: Chest Pain Gastrointestinal: Nausea, Abdominal Pain; No: Vomiting Objective Exam Vital Signs Vital Signs Date Time Temp Pulse Resp B/P (MAP) Pulse Ox O2 Delivery O2 Flow Rate FiO2 05/16/19 06:46 96 05/16/19 04:00 35.8 05/16/19 03:40 18 122/85 (97) 97 High Flow N/C 4.00 05/15/19 10:22 36 Capillary Refill : Less Than 3 SecondsLess Than 3 Seconds General Appearance: No Apparent Distress, WD/WN, Obese Neck: Non Tender, Supple Respiratory: Chest Non Tender, Lungs Clear, No Accessory Muscle Use, No R espiratory Distress, Decreased Breath Sounds Cardiovascular: Regular Rate, Rhythm, Normal Peripheral Pulses (2/4 radial pulses Bilaterally), Other (LE edema 2+) Gastrointestinal: Soft; No Distended; Tenderness (Right side) Neurologic/Psychiatric: Alert, Oriented x3, Normal Mood/Affect Skin: Normal Color, Warm/Dry Results/Procedures Lab Laboratory Tests 05/16/19 04:04 Patient resulted labs reviewed. Assessment/Plan Assessment and Plan Assess & Plan/Chief Complaint COPD exacerbation CHF Edema Shortness of breath Monitor Bowel and Bladder function. Patient then can be sent back home with daughter Monitor vitals Patient requiring oxygen support because of increased respiratory effort. May require intubation if O2 stats drop Clinical Quality Measures DVT/VTE Risk/Contraindication: Risk Factor Score Per Nursin RFS Level Per Nursing on Admit: 4+=Very High DASTHELMA WYLIE 05/16/192104: Subjective Subjective/Events-last exam ICD placement site is still bleeding. Overall very weak, there will be no way she can go home on home health. Will need a mcfp. After rounds she began having A-FIB with RVR, heart rate of 160 requiring ICU transfer then noted subcutaneous hematoma with already Hgb drop of one point shortly after she arrived to the ICU. Consulted Dr. Boles. Pt with very in-stage problems, prognosis remains poor and she was previously a hospice candidate and still is and Pt has very complex medical problems. Review of Systems General: Fatigue Pulmonary: Dyspnea (with exertion) Objective Exam General Appearance: No Apparent Distress, WD/WN, Chronically ill Respiratory: Lungs Clear Cardiovascular: Regular Rate, Rhythm Neurologic/Psychiatric: Alert, Oriented x3, No Motor/Sensory Deficits, Normal Mood/Affect Skin: Other (SQ hematoma noted at 1630 hours when transferred to ICU abdominal) Assessment/Plan Assessment and Plan Assess & Plan/Chief Complaint SQ hematoma of abdominal wall Anemia Transfer to ICU Diagnosis/Problems Diagnosis/Problems (1) Abdominal wall hematoma (2) S/P ICD (internal cardiac defibrillator) procedure (3) Debility Status: Acute (4) Obesity, morbid, BMI 40.0-49.9 Status: Chronic (5) Acute on chronic heart failure Status: Acute Qualifiers: Qualified Codes: I50.43 - Acute on chronic combined systolic (congestive) and diastolic (congestive) heart failure (6) Anasarca Status: Chronic (7) Atrial fibrillation Status: Chronic Qualifiers: Qualified Codes: I48.0 - Paroxysmal atrial fibrillation (8) CO2 narcosis Supervisory-Addendum Brief Verification & Attestation Participated in pt care: history, MDM, physical Personally performed: exam, history, MDM, supervision of care Care discussed with: Medical Student Procedures: n/a Results interpretation: Verified all documentation Verification and Attestation of Medical Student E/M Service A medical student performed and documented this service in my presence. I reviewed and verified all information documented by the medical student and made modifications to such information, when appropriate. I personally performed the physical exam and medical decision making. Thelma Das, May 16, 2019,21:05 [facility] May 16, 2019 06:53 THELMA ARRIAGA DO May 16, 2019 21:05 POS
--- NOTE | 2019-05-16 07:56 | Cardiology Progress Note ---
Subjective Date Seen by Provider: May 16, 2019 Time Seen by Provider: 07:51 Subjective/Events-last exam Patient is in a chair, complaining of fatigue, overall feeling better, large bruise over the pacemaker site Review of Systems General: No Chills, No Night Sweats; Fatigue; No Malaise, No Appetite, No Other HEENT: No Head Aches, No Visual Changes, No Eye Pain, No Ear Pain, No Dysphasia, No Sinus Congestion, No Post Nasal Drip, No Sore Throat, No Other Pulmonary: Dyspnea; No Cough, No Pleuritic Chest Pain, No Other Cardiovascular: No: Chest Pain, Palpitations, Orthopnea, Paroxysmal Noc. Dyspnea, Edema, Lt Headedness, Other Objective-Cardiology Exam Last Set of Vital Signs Vital Signs 05/15/19 05/16/19 05/16/19 10:22 03:40 04:00 Temp 35.8 Pulse 69 Resp 18 B/P (MAP) 122/85 (97) Pulse Ox 97 O2 Delivery High Flow N/C O2 Flow Rate 4.00 FiO2 36 Capillary Refill : Less Than 3 SecondsLess Than 3 Seconds I&O Intake and Output 05/16/19 00:00 Intake Total 3280 ml Output Total 2450 ml Balance 830 ml Intake Oral 1940 ml IV Total 1340 ml Output Urine Total 2450 ml # Bowel Movements 8 General: Alert, Oriented X3, Cooperative, No Acute Distress HEENT: Mucous Memb Moist/[place] Neck: Supple, No JVD, No Thyromegaly Lungs: Normal Air Movement, Other (diffuse wheezing and increased work of breathing with minimal exertion) Heart: Regular Rate, Normal S1, Normal S2, No Murmurs Abdomen: Normal Bowel Sounds, Soft, No Tenderness, No Masses Extremities: No Clubbing, Other (1+ pitting edema bilaterally) Skin: No Rashes, Other (extensive brusing in LUE and left breast) Neuro: Normal Speech, Strength at 5/5 X4 Ext, Sensation Intact, Cranial Nerves 3-12 NL Psych/Mental Status: Mental Status NL, Mood NL Results Lab Laboratory Tests 05/16/19 04:04 A/P-Cardiology Admission Diagnosis Congestive heart failure Coronary artery disease Hypertension Hyperlipidemia Assessment/Plan Status post acute respiratory failure, improving on nasal cannula oxygen at this time Debility, generalized weakness, educated on exercise and working with physical therapy. Paroxysmal atrial fibrillation. doing better, continue to monitor High risk of stroke, pacemaker site and left arm has significant bruising, the dressing over the pacemaker is soaked with blood, there is a slow drop in H&H. I changed Lovenox to DVT prophylaxis, patient has high risk of falling, I am not sure if she can tolerate oral anticoagulation as an outpatient, I will discuss with primary care physician Recurrent nonsustained ventricular tachycardia, history of syncope, paroxysmal atrial fibrillation, had a loop recorder extracted, status post dual-chamber ICD implant by Dr. Ward, DFT testing, site is healing, finished a course of antibiotic but large bruising was noted over the area and the dressing is soaked with blood Anemia, slowly progressing, continue to monitor H&H Congestive heart failure, acute on chronic left ventricular diastolic dysfun ction, hypertensive heart disease. Continue to monitor Cardiac catheterization was done in December 2018 in [facility] and reported having nonobstructive coronary artery disease COPD, restrictive lung disease, stage IV, FEV1 0.56, Dr. Hull is managing Paroxysmal atrial fibrillation, had history of recurrent falls with severe consequences, she was not considered a candidate for oral anticoagulation, continue with physical therapy for strengthening and improving gait Type II myocardial infarction, probably secondary to hypoxemia, mild elevation in troponin, had a cardiac catheterization on January 11, 2019 in [facility] and reported normal coronaries. Continue to monitor Peripheral edema, improving slowly Hypertension, monitor blood pressure Hyperlipidemia, monitor lipids Morbid obesity Clinical Quality Measures DVT/VTE Risk/Contraindication: Risk Factor Score Per Nursin RFS Level Per Nursing on Admit: 4+=Very High LINDY GROVER MD May 16, 2019 07:56 POS
--- NOTE | 2019-05-16 08:11 | Diagnostic Imaging Report ---
INDICATION: Dyspnea. COMPARISON: 05/15/2019. FINDINGS: Enlargement of the heart is unchanged. Perihilar and basilar opacities are in part atelectasis, however superimposition of edema or pneumonia is presumed and the overall lung density not substantially changed. No pneumothorax. Pacemaker device stable. IMPRESSION: Enlargement of the heart, perihilar and basilar opacities, atelectasis with superimposed edema or pneumonia unchanged. Dictated by: Dictated on workstation # [id number]
--- NOTE | 2019-05-16 09:00 | NUR ---
PATIENT TOLD P.T. THAT SHE FELT LIKE SHE WAS GOING TO FAINT WHILE THEY WERE WALKING. PATIENT ASSISTED BACK TO CHAIR. VITALS AND BLOOD SUGAR TAKEN. BOTH STABLE. COOL RAG PLACED ON PATIENT'S FACE. PATIENT BEGAN TO FEEL BETTER. SHE DENIED NAUSEA OR CHEST PAIN. CHANGED DRESSING ON PACEMAKER SITE. PREVIOUS DRESSING SATURATED. PRESSURE HELD ON SITE UNTIL BLEEDING STOPPED. NEW PRESSURE DRESSING APPLIED. PATIENT TOLERATED PROCEDURE WELL.
[2019-05-16] MEDS: CARVEDILOL 3.125 MG (COREG) TABLET PO SCH ×2 (09:08→20:27)
[2019-05-16] MEDS: ASPIRIN E.C. 81 MG (ECOTRIN) TAB PO SCH (09:08)
[2019-05-16] MEDS: AZITHROMYCIN 250 MG TAB (ZITHROMAX) PO SCH (09:08)
[2019-05-16] MEDS: PANTOPRAZOLE 40 MG (PROTONIX) TAB PO SCH (09:08)
[2019-05-16] MEDS: methylPREDNISolone 40 MG/ML (Solu-MEDROL) VIAL IV SCH ×2 (09:09→20:28)
--- NOTE | 2019-05-16 09:42 | NUR ---
DISCHARGE PLANNING: Spoke with patient and she reported that she was going to go home at discharge and this was confirmed with her daughter Precious. They will resume their HHC with [facility]. Daughter had questions regarding the ooze that is still happening at her [facility] site. Assured her that the doctors are watching this closely. She is still on Lasix BID and SM BID. Unsure of exact discharge date.
--- NOTE | 2019-05-16 10:22 | Physical Therapy Daily Note ---
PT Daily Note-Current Subjective Patient agrees to PT. Mental Status Patient Orientation: Normal For Age Attachments: Oxygen, Nova Catheter Transfers SCALE: Activities may be completed with or without assistive devices. 6-Dhvvyolhkb-htslxvx completes the activity by him/herself with no assistance from a helper. 5-Set-up or Clean-up Assistance-helper sets up or cleans up; patient completes activity. [place] assists only prior to or following the activity. 4-Supervision or Touching Assistance-helper provides verbal cues and/or touching/steadying and/or contact guard assistance as patient completes activity. Assistance may be provided throughout the activity or intermittently. 3-Partial/Moderate Assistance-helper does LESS THAN HALF the effort. [place] l ifts, holds or supports trunk or limbs, but provides less than half the effort. 2-Substantial/Maximal Assistance-helper does MORE THAN HALF the effort. [place] lifts or holds trunk or limbs and provides more than half the effort. 8-Bcaigphze-yztwki does ALL the effort. Patient does none of the effort to complete the activity. Or, the assistance of 2 or more helpers is required for t he patient to complete the activity. If activity was not attempted, code reason: 7-Patient Refused. 9-Not Applicable-not attempted and the patient did not perform the activity before the current illness, exacerbation or injury. 10-Not Attempted due to Environmental Limitations-(lack of equipment, weather restraints, etc.). 88-Not Attempted due to Medical Conditions or Safety Concerns. Sit to Stand (QC): 4 Weight Bearing Right Lower Extremity: Right Weight Bearing/Tolerated Left Lower Extremity: Left Weight Bearing/Tolerated Gait Training Does the Patient Walk?: Yes Distance: 20' Walk 10 feet (QC): 3 Gait Assistive Device: FWW Patient became diaphoretic and required assistance to return to recliner Assessment Patient had low BP episode with elevated glucose of 375 during session. Patient required PT to recline chair due to patient became diaphoretic and began "twitching". RN summoned to assess patient. Patient did recover after several minutes. Patient tolerated minimal activity on this date. PT Surgical Instrument Technician Goals Surgical Instrument Technician Goals PT Mcc Goals Time Frame: May 20, 2019 Roll Left & Right (QC): 5 Sit to Lying (QC): 5 Lying-Sitting on Side/Bed(QC): 5 Sit to Stand (QC): 5 Chair/Gfy-uz-Humgd Xfer(QC): 5 Toilet Transfer (QC): 5 Car Transfer (QC): 5 Does the Patient Walk: Yes Walk 10 feet (QC): 5 Walk 50ft with 2 Turns (QC): 5 Walk 150 ft (QC): 5 Walking 10ft on Uneven Surface: 5 1 Step (curb) (QC): 9 4 Steps (QC): 9 12 Steps (QC): 9 Picking up an Object (QC): 88 Does the Pt use WC or Scooter?: No Type: N/A Type: N/A PT Plan Treatment/Plan Treatment Plan: Continue Plan of Care Treatment Plan: Bed Mobility, Education, Functional Activity Georges, Functional Strength, Gait, Safety, Therapeutic Exercise, Transfers Treatment Duration: May 20, 2019 Frequency: 6 times per week Estimated Hrs Per Day: .25 hour per day Patient and/or Family Agrees t: Yes Time/GCodes Time In: 844 Time Out: 900 Total Billed Treatment Time: 16 Total Billed Treatment 1 visit FA 16 min EDMOND STRICKLAND PT May 16, 2019 10:22 POS
[2019-05-16] MEDS: ENOXAPARIN 40 MG/0.4 ML (LOVENOX) SYR SQ SCH ×2 (12:03→22:34)
--- NOTE | 2019-05-16 12:22 | NUR ---
ICU TELEMETRY CALLED. PATIENT'S HEART RATE 150. PATIENT IS SITTING IN RECLINER CHAIR WITH FEET ELEVATED. VITALS TAKEN BP 93/53 HR 66 TO 75. PALPATED RADIAL PULSE 75, TELEMETRY BOX SHOWS A HEART RATE OF 124. DR GROVER NOTIFIED. EKG ORDERED AND TAKE BP AGAIN WHEN PATIENT IS LAYING DOWN. DR GROVER ALSO NOTIFIED ABOUT PATIENT'S COMPLAINT OF ABDOMINAL PAIN ON THE MID/RIGHT SIDE--NOTIFY PRIMARY DOCTOR. Addendum: 05/16/19 at 1449 by ANISHA GUO RN MESSAGE LEFT ON DR DAS'S CELL PHONE.
--- NOTE | 2019-05-16 12:30 | NUR ---
PATIENT TURNED VERY PALE AND FAINTED FOR A FEW SECONDS WHILE 2 PCCT'S WERE HELPING HER TRANSFER FROM THE CHAIR TO THE BED. THIS RN WAS ALSO IN THE ROOM. A RAPID RESPONSE WAS CALLED. PATIENT QUICKLY CAME AWARE OF HER SURROUNDINGS AGAIN. EKG TAKEN -SHOWED AFIB HR 105. BP 153/66. DR GROVER NOTIFIED. DR DAS RETURNED THE CALL. SHE WAS UPDATED. ORDERS TO MOVE PATIENT TO ICU.. DR GROVER NOTIFIED. MESSAGE LEFT ON DR MCDONALD'S PHONE AT [address] GROVER'S REQUEST.
--- NOTE | 2019-05-16 12:47 | Pulmonary Progress Note ---
Subjective Time Seen by a Provider: 12:53 Subjective/Events-last exam Pt is transferring back to ICU secondary to continued decline. Sepsis Event Evaluation Height, Weight, BMI Height: '" Weight: lbs. oz. kg; 48.00 BMI Method: Exam Exam Vital Signs Date Time Temp Pulse Resp B/P (MAP) Pulse Ox O2 Delivery O2 Flow Rate FiO2 05/16/19 09:00 97 High Flow N/C 4.00 05/16/19 06:46 96 05/16/19 04:00 35.8 05/16/19 03:40 35.8 69 18 122/85 (97) 97 High Flow N/C 4.00 05/16/19 01:00 108 05/15/19 23:11 95 Nasal Cannula 4.00 05/15/19 21:28 120 05/15/19 21:00 95 Nasal Cannula 4.00 05/15/19 20:30 36.0 106 20 122/90 (101) 95 High Flow N/C 4.00 05/15/19 19:30 95 Nasal Cannula 4.00 05/15/19 19:00 110 05/15/19 16:25 36.6 84 22 123/88 (100) 96 High Flow N/C 4.00 05/15/19 13:00 82 I & O 05/16/19 07:00 Intake Total 3280 ml Output Total 2325 ml Balance 955 ml Height & Weight Height: '" Weight: lbs. oz. kg; 48.00 BMI Method: General Appearance: WD/WN, Anxious, Chronically ill, Mild Distress, Obese HEENT: PERRL/EOMI Neck: Non Tender, Supple Respiratory: Chest Non Tender, No Accessory Muscle Use, No Respiratory Distress, Decreased Breath Sounds Cardiovascular: Regular Rate, Rhythm, Normal Peripheral Pulses (2/4 radial pulses Bilaterally), Other (LE edema 2+) Capillary Refill: Less Than 3 Seconds Gastrointestinal: non tender, soft Extremity: Pedal Edema Neurologic/Psychiatric: Alert, Oriented x3, Normal Mood/Affect Skin: Normal Color, Warm/Dry Lymphatic: No Adenopathy Results Lab Laboratory Tests 05/15/19 04:45 05/15/19 04:55 05/16/19 04:04 Assessment/Plan Assessment/Plan Acute on chronic respiratory failure -PT is approved for home vent to mask. DME will set it up upon discharge. -DuoNeb q 4 -solumedrol 40 Q 12 -Zosyn -- Auto stopped yesterday -secondary to pt's declining condition. I am going to restart Zosyn and add vanco. -Repeat Davila cultures and Lactic acid -PT is transferring back to ICU Atelectasis - -Productive cough of Rodríguez sputum -Repeat Sputum culture- showe usual upper respiratory leatha Debility -PT/OT History of recurrent nonsustained ventricular tachycardia, history of syncope in the past. -Patient has an attempt for ICD placement and became severely hypoxemic d uring induction of sedation. Procedure was canceled. Pulmonary edema and bilateral pleural effusions -Lasix COPDAE -solumedrol -SVNs with duoneb Q 4 and add pulmicort BID CHFAE -acute on chronic left ventricular diastolic dysfunction -Lasix -Echo -Cardiology following -Cardiac catheterization was done in December 2018 in [facility] and reported having nonobstructive coronary artery disease Obesity OHS -Will benefit from home vent to mask Anemia -Monitor -Check occult stool Paroxysmal atrial fibrillation Peripheral edema, improving slowly Hypertension Hyperlipidemia Morbid obesity PANKAJ VALENTINE DO May 16, 2019 12:47 POS
--- NOTE | 2019-05-16 13:06 | Cardiology Progress Note ---
Cardiology SOAP Progress Note Subjective: No cardiac complaints. Objective: I&O/Vital Signs 05/16/19 05/16/19 05/16/19 05/16/19 03:40 04:00 06:46 09:00 Temp 35.8 35.8 Pulse 69 96 Resp 18 B/P (MAP) 122/85 (97) Pulse Ox 97 97 O2 Delivery High Flow N/C High Flow N/C O2 Flow Rate 4.00 4.00 05/16/19 00:00 Intake Total 1640 ml Output Total 2075 ml Balance -435 ml Bruising: moderated bruising (significant bruising noted.) Constitutional: appears stated age, AAO x 3; No apparent distress; well- developed, well-nourished Respiratory: chest is bilaterally symmetric, lungs clear to auscultation Cardiovascular: regular rate-rhythm, S1 and S2, other (significant bruising left upper chest.) Gastrointestional: soft, distended, audible bowel sounds; No spleenomegaly Extremities: normal range of motion, non-tender, normal inspection, pedal edema; No clubbing, No cyanosis, No significant edema Neurologic/Psychiatric: no motor/sensory deficits, alert, normal mood/affect, oriented x 3 Skin: normal color, warm/dry; No rash, No ulcerations Results/Procedures: Labs Laboratory Tests 05/15/19 16:27: Glucometer 276H 05/15/19 20:31: Glucometer 343H 05/16/19 04:04: White Blood Count 17.1H, Red Blood Count 3.23L, Hemoglobin 8.9L, Hematocrit 29L, Mean Corpuscular Volume 90, Mean Corpuscular Hemoglobin 28, Mean Corpuscular Hemoglobin Concent 31L, Red Cell Distribution Width 14.9H, Platelet Count 237, Mean Platelet Volume 10.3, Neutrophils (%) (Auto) 86H, Lymphocytes (%) (Auto) 5L , Monocytes (%) (Auto) 9, Eosinophils (%) (Auto) 0, Basophils (%) (Auto) 0, Neutrophils # (Auto) 14.7H, Lymphocytes # (Auto) 0.9L, Monocytes # (Auto) 1.5H, Eosinophils # (Auto) 0.0, Basophils # (Auto) 0.0, Neutrophils % (Manual) 80, Lymphocytes % (Manual) 9, Monocytes % (Manual) 7, Band Neutrophils 4, Blood Morphology Comment NORMAL, Sodium Level 136, Potassium Level 3.9, Chloride Level 87L, Carbon Dioxide Level 33H, Anion Gap 16H, Blood Urea Nitrogen 41H, Creati nine 1.18, Estimat Glomerular Filtration Rate 45, BUN/Creatinine Ratio 35, Glucose Level 381H, Calcium Level 7.4L, Corrected Calcium 7.8L, Phosphorus Level 4.9H, Magnesium Level 2.1, Total Bilirubin 0.5, Aspartate Amino Transf (AST/SGOT) 8, Alanine Aminotransferase (ALT/SGPT) 18, Alkaline Phosphatase 61, Total Protein 5.4L, Albumin 3.5 05/16/19 05:40: Glucometer 332H 05/16/19 08:58: Glucometer 375H 05/16/19 11:14: Glucometer 267H Microbiology 05/04/19 Blood Culture - Final, Complete No growth 05/09/19 Gram Stain - Final, Complete 05/09/19 Sputum Culture - Final, Complete Usual upper respiratory leatha A/P: Assessment/Dx: Numerous episodes of sustained VT, Syncope, Idiopathic VT, PAF Plan: Numerous episodes of sustained VT on ILR interrogation with duration > 30 seconds, working diagnosis of idiopathic VT. Echocardiogram done 04/2019 showed normal LV function. Negative Cath in 12/2018. Dual-chamber ICD placed on 05/09/2019. Implantable loop recorder was removed as well. Patient tolerated procedure well and did not have any complication. Postprocedure chest x-ray did not show any pneumothorax. Atrial paced rhythm this morning. Device interrogation was within normal limits. Antibiotic course completed. Significant bruising noted in the left upper extremity and the left upper chest as well as the groin. Patient was on high-dose Lovenox which has been changed to DVT prophylaxis dose yesterday. I discussed with Dr. Maldonado about the possibility of a hematoma in the pocket as well. We will try conservative management for the next 24-48 hours and then reassess. Syncope, likely secondary to sustained VT. Idiopathic VT, on verapamil. PAF, will need OAC and rate controlling agent. Severe obstructive and restrictive lung disease, extubated today. Defer to Dr. Hull and the primary team. Thank you for your consultation. Please call me if you have any questions. John Ward MD, FACP, FACC, FSCAI, FHRS, CCDS Interventional Cardiology Cardiac Electrophysiology Vascular Medicine and Endovascular Interventions Winston WARD MD May 16, 2019 13:06 POS
--- NOTE | 2019-05-16 13:13 | NUR ---
CALLED PATIENT'S DAUGHTER HAYLIE TO LET HER KNOW ABOUT THIS MORNINGS EVENTS AND THAT WE WERE MOVING HER MOTHER TO ICU 8.
[2019-05-16] MEDS ORDERED: PIPERACILLIN/TAZO 4.5 GM/NS 100 ML IV NR ×2 (13:15)
[2019-05-16] MEDS: RT-BUDESONIDE NEBS 0.5 MG/2ML (PULMICORT) AMP INH SCH ×2 (13:19→19:03)
--- NOTE | 2019-05-16 13:43 | Occ Therapy Progress Note ---
Therapy Progress Note Pt moving to CU8. Due to change of medical status OT to discharge. Will need new orders. UGO MARTIN May 16, 2019 13:42 POS
--- NOTE | 2019-05-16 14:00 | NUR ---
TRANSFERRED PATIENT TO ICU ROOM 8 VIA BED. REPORT GIVEN TO SENIOR PAINTER JUVENAL.
--- NOTE | 2019-05-16 14:34 | NUR ---
Dr. Ward notified of pt in a fib rate 130-150.
[2019-05-16 14:48] LABS: BASOPHILS % (AUTO) 0 % (0-10); EOSINOPHILS % (AUTO) 0 % (0-10); HEMATOCRIT 25 % (35-52); HEMOGLOBIN 7.9 G/DL (11.5-16.0); LYMPHOCYTES # (AUTO) 1.1 X 10^3 (1.0-4.0); LYMPHOCYTES % (AUTO) 5 % (12-44); MEAN CORPUSCULAR HEMOGLOBIN 28 PG (25-34); MEAN CORPUSCULAR HGB CONC 31 G/DL (32-36); MEAN CORPUSCULAR VOLUME 89 FL (80-99); MEAN PLATELET VOLUME 10.2 FL (7.4-10.4); MONOCYTES # (AUTO) 1.6 X 10^3 (0.0-1.0); MONOCYTES % (AUTO) 7 % (0-12); NEUTROPHILS # (AUTO) 22.1 X 10^3 (1.8-7.8); NEUTROPHILS % (AUTO) 89 % (42-75); PLATELET COUNT 286 10^3/uL (130-400); RED CELL DISTRIBUTION WIDTH 14.9 % (10.0-14.5); WHITE BLOOD COUNT 24.9 10^3/uL (4.3-11.0)
[2019-05-16 15:11] LABS: ALBUMIN 3.5 GM/DL (3.2-4.5); BILIRUBIN,TOTAL 0.5 MG/DL (0.1-1.0); CALCIUM 7.5 MG/DL (8.5-10.1); PHOSPHORUS 5.1 MG/DL (2.3-4.7); POTASSIUM 4.1 MMOL/L (3.6-5.0); TOTAL PROTEIN 5.4 GM/DL (6.4-8.2)
--- NOTE | 2019-05-16 15:15 | NUR ---
Dr. Loev notified of lactic acid 3.
[2019-05-16 15:24] LABS: BAND NEUTROPHILS 1 %; NEUTROPHILS % (MANUAL) 86 %
[2019-05-16 15:25] LABS: LYMPHOCYTES % (MANUAL) 8 %; MONOCYTES % (MANUAL) 5 %; NUCLEATED RED BLOOD CELLS 2
[2019-05-16 15:26] LABS: ANISOCYTOSIS SLIGHT; HELMET/BITE CELLS SLIGHT; TEAR DROP CELLS SLIGHT
[2019-05-16] MEDS ORDERED: DILTIAZEM 25 MG/5 ML INJ (CARDIZEM) VIAL IVP NR (15:30)
--- NOTE | 2019-05-16 15:43 | Physical Therapy Progress Note ---
Therapy Progress Note Patient transferred to ICU secondary to decline in status. Patient is currently in A-Fib with RVR, elevated WBC and decreased Hgb. PT will assess patient in a.tomasa. RN report to begin in [place]. EDMOND STRICKLAND PT May 16, 2019 15:43 POS
--- NOTE | 2019-05-16 15:53 | NUR ---
Inserted healy cath et upon insertion noted large dark purple bruise across lower abd. Bruise was not apparent when pt was admitted to [address]. Love notified et asked to consult Dr. Boles
--- NOTE | 2019-05-16 15:55 | NUR ---
Dr. Boles notified of consult et pt status et c/o
[2019-05-16] MEDS ORDERED: NS IV 1000 ML 1,000 ML ONE (16:02)
--- NOTE | 2019-05-16 16:03 | NUR ---
Talked with Dr. Maldonado via telephone et updated on pt status
[2019-05-16] MEDS ORDERED: fentaNYL INJECTION 100 MCG/2 ML AMP IVP PRN (16:15)
[2019-05-16] MEDS: DILTIAZEM IV FOR DRIP 125 MG in NS (IVPB) 100 ML IV SCH (16:18)
[2019-05-16] MEDS: NS IV 1000 ML 1,000 ML IV SCH (16:19)
--- NOTE | 2019-05-16 16:25 | Consultation - Surgery ---
ZOIE SANTOS,MED STUDENT 05/16/19 1625: History of Present Illness History of Present Illness Patient Consulted On(oswaldo/time) 05/16/19 16:19 Date Seen by Provider: May 16, 2019 Time Seen by Provider: 16:10 Reason for Visit: Shortness of breath History of Present Illness Surgery was consulted by Dr. Rod because of sudden drop in H/H and development of hematoma in RLQ. Patient has a history of CHF, a-fib, and respiratory failure. She recently had a pacemaker put in by Dr. Ward. She was mildly anemic but stable for the past couple of days but this afternoon she had a sudden drop in her hemoglobin and hematocrit accompanied with a rise in her WBCs, a hematoma in her RLQ, diffuse ecchomyosis along breadth of her lower abdomen and around her pacemaker. She has been doing SubQ lovenox injection in her RLQ with her last injection around 1200 today. Allergies and Home Medications Allergies Coded Allergies: bee venom protein (honey bee) (Verified Allergy, Unknown, 05/04/19) Home Medications Acetaminophen 325 Mg Tablet, 650 MG PO Q4H PRN for PAIN-MILD (1-4), (Reported) Aspirin 81 Mg Tablet.dr, 81 MG PO DAILY, (Reported) Atorvastatin Calcium 10 Mg Tablet, 10 MG PO DAILY, (Reported) Calcium Carbonate 300 Mg Tab.chew, 1 TAB.CHEW PO BID, (Reported) Fluticasone Propionate 16 Gm Grover.susp, 2 SPRAYS NS DAILY, (Reported) Furosemide 40 Mg Tablet, 40 MG PO 0800,1200, (Reported) Hydrocodone/Acetaminophen 1 Each Tablet, 1 TAB PO Q6H PRN for PAIN-MODERATE (5- 7), (Reported) Ipratropium/Albuterol Sulfate 3 Ml Ampul.neb, 3 ML NEB Q6H PRN for SHORTNESS OF BREATH, (Reported) Loperamide HCl 2 Mg Capsule, PO UD PRN for DIARRHEA, (Reported) Nystatin 1 Each Powder.ea., TOP BID PRN for RASH, (Reported) Sennosides/Docusate Sodium 1 Each Tablet, 2 TAB PO DAILY PRN for CONSTIPATION- 6TH LINE, (Reported) Umeclidinium Brm/Vilanterol Tr 1 Each Blst.w.dev, 1 PUFF IH HS, (Reported) Verapamil HCl 80 Mg Tablet, 80 MG PO TID, (Reported) HOLD IF BP <110 Past Rqusiqa-Meoljl-Cmeryn Hx Patient Social History Alcohol Use: Denies Use Recreational Drug Use: No Smoking Status: Former Smoker Former Smoker, Quit: May 31, 2007 Recent Foreign Travel: No Contact w/Someone Who Travel: No Recent Infectious Disease Expo: No Recent Hopitalizations: Yes (hospitalized at [facility]) Immunizations Up To Date Date of Influenza Vaccine: Feb 27, 2019 Seasonal Allergies Seasonal Allergies: No Surgeries History of Surgeries: Yes (l/r tkr) Surgeries: Orthopedic Respiratory History of Respiratory Disorde: Yes Respiratory Disorders: COPD Cardiovascular History of Cardiac Disorders: Yes (CHF) Cardiac Disorders: Atrial Fibrillation, Chronic Edema/Swelling, Hypertension Reproductive System : No Genitourinary History of Genitourinary Disor: No Gastrointestinal History of Gastrointestinal Di: Yes Gastrointestinal Disorders: Gastroesophageal Reflux, Chronic Constipation, Chronic Diarrhea Endocrine History of Endocrine Disorders: No Cancer History of Cancer: No Psychosocial History of Psychiatric Problem: No Integumentary History of Skin or Integumenta: No Family Medical History Significant Family History: No Pertinent Family Hx Review of Systems-General Constitutional: No chills, No dizziness, No fever Respiratory: No cough, No phlegm, No short of breath Cardiovascular: No chest pain; Hx of Intervention Gastrointestinal: RUQ, RLQ, abdominal pain; No nausea, No vomiting Psychiatric/Neurological: Anxiety; Denies Depressed Physical Exam-General Problems Physical Exam Vital Signs Vital Signs - First Documented 05/10/19 00:00 Temp 37.1 Pulse 74 Resp 15 B/P (MAP) 111/67 (82) Pulse Ox 90 O2 Delivery Mechanical Ventilator O2 Flow Rate 50.00 FiO2 50 Capillary Refill : Less Than 3 SecondsLess Than 3 Seconds General Appearance: no apparent distress, obese HEENT: PERRL/EOMI; No scleral icterus (R), No scleral icterus (L) Neck: No non-tender, No supple Respiratory: chest non-tender, lungs clear, normal breath sounds, no respiratory distress, no accessory muscle use Cardiovascular: tachycardia Gastrointestinal: tenderness (R sided abdominal pain ), mass (hematoma in RLQ ), other (ecchomyosis across lower abdomen ) Extremities: No calf tenderness; pedal edema Neurologic/Psychiatric: alert, oriented x 3 Skin: normal color, warm/dry Data Review Labs Laboratory Tests 05/15/19 16:27: Glucometer 276H 05/15/19 20:31: Glucometer 343H 05/16/19 04:04: White Blood Count 17.1H, Red Blood Count 3.23L, Hemoglobin 8.9L, Hematocrit 29L, Mean Corpuscular Volume 90, Mean Corpuscular Hemoglobin 28, Mean Corpuscular Hemoglobin Concent 31L, Red Cell Distribution Width 14.9H, Platelet Count 237, Mean Platelet Volume 10.3, Neutrophils (%) (Auto) 86H, Lymphocytes (%) (Auto) 5L , Monocytes (%) (Auto) 9, Eosinophils (%) (Auto) 0, Basophils (%) (Auto) 0, Neutrophils # (Auto) 14.7H, Lymphocytes # (Auto) 0.9L, Monocytes # (Auto) 1.5H, Eosinophils # (Auto) 0.0, Basophils # (Auto) 0.0, Neutrophils % (Manual) 80, Lymphocytes % (Manual) 9, Monocytes % (Manual) 7, Band Neutrophils 4, Blood Morphology Comment NORMAL, Sodium Level 136, Potassium Level 3.9, Chloride Level 87L, Carbon Dioxide Level 33H, Anion Gap 16H, Blood Urea Nitrogen 41H, Creatinine 1.18, Estimat Glomerular Filtration Rate 45, BUN/Creatinine Ratio 35, Glucose Level 381H, Calcium Level 7.4L, Corrected Calcium 7.8L, Phosphorus Level 4.9H, Magnesium Level 2.1, Total Bilirubin 0.5, Aspartate Amino Transf (AST/SGOT) 8, Alanine Aminotransferase (ALT/SGPT) 18, Alkaline Phosphatase 61, Total Protein 5.4L, Albumin 3.5 05/16/19 05:40: Glucometer 332H 05/16/19 08:58: Glucometer 375H 05/16/19 11:14: Glucometer 267H 05/16/19 14:20: White Blood Count 24.9H, Red Blood Count 2.83L, Hemoglobin 7.9L, Hematocrit 25L, Mean Corpuscular Volume 89, Mean Corpuscular Hemoglobin 28, Mean Corpuscular Hemoglobin Concent 31L, Red Cell Distribution Width 14.9H, Platelet Count 286, Mean Platelet Volume 10.2, Neutrophils (%) (Auto) 89H, Lymphocytes (%) (Auto) 5L , Monocytes (%) (Auto) 7, Eosinophils (%) (Auto) 0, Basophils (%) (Auto) 0, Neutrophils # (Auto) 22.1H, Lymphocytes # (Auto) 1.1, Monocytes # (Auto) 1.6H, Eosinophils # (Auto) 0.0, Basophils # (Auto) 0.0, Neutrophils % (Manual) 86, Lymphocytes % (Manual) 8, Monocytes % (Manual) 5, Band Neutrophils 1, Nucleated Red Blood Cells 2, Anisocytosis SLIGHT, Tear Drop Cells SLIGHT, Helmet Cells SLIGHT, Sodium Level 133L, Potassium Level 4.1, Chloride Level 88L, Carbon Dioxide Level 28, Anion Gap 17H, Blood Urea Nitrogen 46H, Creatinine 1.00, Estimat Glomerular Filtration Rate 55, BUN/Creatinine Ratio 46, Glucose Level 272H, Lactic Acid Level 3.01*H, Calcium Level 7.5L, Corrected Calcium 7.9L, Phosphorus Level 5.1H, Magnesium Level 2.0, Total Bilirubin 0.5, Aspartate Amino Transf (AST/SGOT) 9, Alanine Aminotransferase (ALT/SGPT) 18, Alkaline Phosphatase 64, Total Protein 5.4L, Albumin 3.5 05/16/19 15:51: Glucometer 258H Microbiology 05/04/19 Blood Culture - Final, Complete No growth 05/09/19 Gram Stain - Final, Complete 05/09/19 Sputum Culture - Final, Complete Usual upper respiratory leatha Assessment/Plan Assessment/Plan Assessment/Plan anemia - recheck H/H in 4 hrs - will consider CT if H/H does not improve or gets worse hematoma in RLQ - monitor for changes in sizes RUQ tenderness to percussion and light palpations - consider RUQ U/S Clinical Quality Measures DVT/VTE Risk/Contraindication: Risk Factor Score Per Nursin RFS Level Per Nursing on Admit: 4+=Very High KODY SOTO DO 05/16/19 7891: History of Present Illness History of Present Illness History of Present Illness consult requested by Dr. rod for hematoma and drop in hgb. Patient is 68 year old female wiht multiple comorbidities. Had recent pacemaker placed. Has significant new bruising to lower abdomen, and slight subcutaneous mass right lower quadrant. Pain moderated in this area. NO radiation of pain. Patient states had gotten Lovenox shot in lower abdomen on right side. patient hgb did have drop. Allergies and Home Medications Allergies Coded Allergies: bee venom protein (honey bee) (Verified Allergy, Unknown, 05/04/19) Home Medications Acetaminophen 325 Mg Tablet, 650 MG PO Q4H PRN for PAIN-MILD (1-4), (Reported) Aspirin 81 Mg Tablet.dr, 81 MG PO DAILY, (Reported) Atorvastatin Calcium 10 Mg Tablet, 10 MG PO DAILY, (Reported) Calcium Carbonate 300 Mg Tab.chew, 1 TAB.CHEW PO BID, (Reported) Fluticasone Propionate 16 Gm Grover.susp, 2 SPRAYS NS DAILY, (Reported) Furosemide 40 Mg Tablet, 40 MG PO 0800,1200, (Reported) Hydrocodone/Acetaminophen 1 Each Tablet, 1 TAB PO Q6H PRN for PAIN-MODERATE (5- 7), (Reported) Ipratropium/Albuterol Sulfate 3 Ml Ampul.neb, 3 ML NEB Q6H PRN for SHORTNESS OF BREATH, (Reported) Loperamide HCl 2 Mg Capsule, PO UD PRN for DIARRHEA, (Reported) Nystatin 1 Each Powder.ea., TOP BID PRN for RASH, (Reported) Sennosides/Docusate Sodium 1 Each Tablet, 2 TAB PO DAILY PRN for CONSTIPATION- 6TH LINE, (Reported) Umeclidinium Brm/Vilanterol Tr 1 Each Blst.w.dev, 1 PUFF IH HS, (Reported) Verapamil HCl 80 Mg Tablet, 80 MG PO TID, (Reported) HOLD IF BP <110 Patient Home Medication List Home Medication List Reviewed: Yes Past Tnfxaxt-Ephgbh-Tuykdt Hx Reviewed Nursing Assessment Reviewed/Agree w Nursing PMH: Yes Family Medical History Significant Family History: No Pertinent Family Hx Review of Systems-General Constitutional: no symptoms reported EENTM: no symptoms reported Respiratory: no symptoms reported Cardiovascular: no symptoms reported, Hx of Intervention Gastrointestinal: RLQ, abdominal pain (RLQ) Genitourinary: no symptoms reported Musculoskeletal: no symptoms reported Skin: change in color Psychiatric/Neurological: Anxiety Physical Exam-General Problems Physical Exam General Appearance: no apparent distress, obese HEENT: PERRL/EOMI, normal ENT inspection Neck: non-tender, supple Respiratory: no respiratory distress, no accessory muscle use, other (pacemaker left upper chest with significant echymosis around it and throughout chest) Cardiovascular: tachycardia Gastrointestinal: soft, tenderness (Right lower qudrant of abdominal wall with subcutaneous mass( hematoma)) Rectal: deferred Back: no CVA tenderness Extremities: non-tender, pedal edema Neurologic/Psychiatric: alert, oriented x 3 Skin: ecchymosis (across most of anterior chest into breast, lower abdomen bilaterally majority below umbilicus) Lymphatic: no adenopathy Assessment/Plan Assessment/Plan Assessment/Plan anemia from acute blood loss likely from lovenox shot causing hematoma follow hgb transfuse prn if has significant drop consider ct to further evaluate hematoma right lower quadrant s/p recent pacemaker placement no surgical intervention, conservative measures for now will follow Supervisory-Addendum Brief Verification & Attestation Participated in pt care: history, MDM, physical Personally performed: exam, history, MDM, supervision of care Care discussed with: Medical Student Procedures: n/a Results interpretation: Verified all documentation Verification and Attestation of Medical Student E/M Service A medical student performed and documented this service in my presence. I review ed and verified all information documented by the medical student and made modifications to such information, when appropriate. I personally performed the physical exam and medical decision making. Kody Soto, May 16, 2019,22:57 ZOIE SANTOS,MED STUDENT May 16, 2019 16:25 KODY ALEJANDRO DO May 16, 2019 22:53 POS
--- NOTE | 2019-05-16 18:26 | NUR ---
Dr. Ward notified cardizem gtt up to 15mg/hr with pt in afib rate 120s
[2019-05-16] MEDS ORDERED: NS (IVPB) 100 ML ONE (20:15)
[2019-05-16] MEDS ORDERED: PIPERACILLIN/TAZO 4.5 GM VIAL (ZOSYN) IV ONE (20:15)
[2019-05-16] MEDS: PIPERACILLIN/TAZOBACTAM (BULK) 4.5 GM in NS (IVPB) 100 ML IV SCH (20:27)
[2019-05-17] VITALS (27 sets, daily range): BP systolic 79–126; BP diastolic 28–104
[2019-05-17] MEDS: DILTIAZEM IV FOR DRIP 125 MG in NS (IVPB) 100 ML IV SCH (00:48)
[2019-05-17] MEDS: NS IV 1000 ML 1,000 ML IV SCH ×3 (01:15→16:38)
[2019-05-17] MEDS ORDERED: NS (IVPB) 100 ML ONE (04:09)
[2019-05-17] MEDS ORDERED: PIPERACILLIN/TAZO 4.5 GM VIAL (ZOSYN) IV ONE (04:09)
--- NOTE | 2019-05-17 04:15 | NUR ---
DR VALENTINE HERE TO SEE PT. DR VALENTINE NOTIFIED OF HEMOGLOBIN OF 6.6. ORDER FOR CT OF CHEST/ABD/ AND PELVIS STAT. TYPE AND SCREEN AND TRANSFUSE 2 UNITS STAT
[2019-05-17] MEDS: PIPERACILLIN/TAZOBACTAM (BULK) 4.5 GM in NS (IVPB) 100 ML IV SCH ×3 (04:20→20:45)
[2019-05-17 05:18] LABS: SODIUM 136 MMOL/L (135-145)
[2019-05-17 05:19] LABS: ALANINE AMINOTRANSFERASE 15 U/L (0-55); ALKALINE PHOSPHATASE 50 U/L (40-136); BILIRUBIN,TOTAL 0.4 MG/DL (0.1-1.0); BUN/CREATININE RATIO 51; CALCIUM 7.4 MG/DL (8.5-10.1); CARBON DIOXIDE 33 MMOL/L (21-32); CHLORIDE 90 MMOL/L (98-107); CREATININE SERUM 0.88 MG/DL (0.60-1.30); GFR ESTIMATED > 60; GLUCOSE 239 MG/DL (70-105); MAGNESIUM 2.1 MG/DL (1.6-2.4); PHOSPHORUS 4.8 MG/DL (2.3-4.7); TOTAL PROTEIN 4.6 GM/DL (6.4-8.2)
[2019-05-17 05:20] LABS: ALBUMIN 3.1 GM/DL (3.2-4.5); PARTIAL THROMBOPLASTIN TIME < 20 SEC (24-35); PROTHROMBIN TIME PATIENT 13.6 SEC (12.2-14.7)
[2019-05-17 05:26] LABS: WHITE BLOOD COUNT 22.3 10^3/uL (4.3-11.0)
[2019-05-17 05:27] LABS: BASOPHILS % (AUTO) 0 % (0-10); EOSINOPHILS % (AUTO) 0 % (0-10); HEMATOCRIT 22 % (35-52); HEMOGLOBIN 6.6 G/DL (11.5-16.0); LYMPHOCYTES # (AUTO) 1.6 X 10^3 (1.0-4.0); LYMPHOCYTES % (AUTO) 7 % (12-44); MEAN CORPUSCULAR HEMOGLOBIN 28 PG (25-34); MEAN CORPUSCULAR HGB CONC 31 G/DL (32-36); MEAN CORPUSCULAR VOLUME 91 FL (80-99); MEAN PLATELET VOLUME 10.5 FL (7.4-10.4); MONOCYTES # (AUTO) 1.4 X 10^3 (0.0-1.0); MONOCYTES % (AUTO) 6 % (0-12); NEUTROPHILS # (AUTO) 19.3 X 10^3 (1.8-7.8); NEUTROPHILS % (AUTO) 87 % (42-75); PLATELET COUNT 224 10^3/uL (130-400)
[2019-05-17] MEDS ORDERED: HOLD METFORMIN - RECEIVED CONTRAST 20 ML VIAL IV SCH (05:30)
[2019-05-17] MEDS ORDERED: NS 100 ML (IVPB) BAG IV ONE (05:30)
[2019-05-17] MEDS ORDERED: IOHEXOL 350 MG/ML 100 ML (OMNIPAQUE 350) VIAL IV ONE (05:30)
[2019-05-17] MEDS: CATHETER FLUSH 10 ML SYR IV SCH ×3 (05:48→20:45)
[2019-05-17] MEDS ORDERED: KCL 20 MEQ TAB (K-DUR) PO SCH (06:00)
[2019-05-17] MEDS: DILTIAZEM 30 MG (CARDIZEM) TAB PO SCH ×3 (06:30→17:43)
[2019-05-17] MEDS: inSUlin ASPART (NovoLOG) 1 UNIT/0.01 ML (CHARGE PER UNIT) SC SCH ×4 (06:30→20:44)
[2019-05-17] MEDS: MAGNESIUM 1 GM/100 ML IVPB 100 ML IV SCH (06:43)
[2019-05-17] MEDS: POTASSIUM CL 10MEQ/50ML IVPB 50 ML IV SCH (06:43)
[2019-05-17] MEDS: KCL 20 MEQ TAB (K-DUR) PO SCH (06:44)
--- NOTE | 2019-05-17 06:51 | Pulmonary Progress Note ---
Subjective Time Seen by a Provider: 06:55 Subjective/Events-last exam Pt's Hb is 6.8 this AM. Sepsis Event Evaluation Height, Weight, BMI Height: '" Weight: lbs. oz. kg; 48.00 BMI Method: Focused Exam Lactate Level 05/16/19 14:20: Lactic Acid Level 3.01*H 05/16/19 16:50: Lactic Acid Level 2.13*H Exam Exam Vital Signs Date Time Temp Pulse Resp B/P (MAP) Pulse Ox O2 Delivery O2 Flow Rate FiO2 05/17/19 06:00 129 22 109/60 (76) High Flow N/C 5.00 05/17/19 05:00 113 26 107/69 (82) High Flow N/C 5.00 05/17/19 04:00 110 21 124/94 (104) 95 High Flow N/C 5.00 05/17/19 03:00 98 17 95/67 (76) 91 High Flow N/C 5.00 05/17/19 02:00 84 27 100/69 (79) 96 High Flow N/C 5.00 05/17/19 01:00 100 23 98/69 (79) 93 High Flow N/C 5.00 05/17/19 01:00 100 05/17/19 00:48 90/62 05/17/19 00:30 107 19 98/60 (73) 92 High Flow N/C 5.00 05/17/19 00:00 High Flow N/C 5.00 05/16/19 23:29 36.2 05/16/19 23:00 98 29 113/63 (80) 95 High Flow N/C 5.00 05/16/19 22:00 100 26 120/77 (91) 93 High Flow N/C 5.00 05/16/19 21:39 96 Nasal Cannula 4.00 05/16/19 21:00 93 22 123/82 (96) 93 High Flow N/C 5.00 05/16/19 20:00 High Flow N/C 5.00 05/16/19 20:00 36.6 05/16/19 20:00 106 27 98/40 (59) 95 High Flow N/C 5.00 05/16/19 19:02 94 Nasal Cannula 5.00 05/16/19 19:02 94 Nasal Cannula 5.00 05/16/19 19:00 127 05/16/19 19:00 105 16 104/62 (76) 84 High Flow N/C 5.00 05/16/19 18:00 158 18 116/69 (85) 93 High Flow N/C 5.00 05/16/19 17:00 115 20 100/63 (75) 92 High Flow N/C 5.00 05/16/19 16:18 132/107 05/16/19 16:00 36.2 05/16/19 16:00 High Flow N/C 5.00 05/16/19 16:00 140 17 117/80 (92) High Flow N/C 5.00 05/16/19 15:00 129 24 116/77 (90) 95 High Flow N/C 5.00 05/16/19 14:15 142 22 98/76 (83) 94 High Flow N/C 5.00 05/16/19 14:03 141 05/16/19 13:18 96 Nasal Cannula 5.00 05/16/19 12:46 129 05/16/19 12:30 36.2 105 22 153/66 (95) 99 Nasal Cannula 5.00 05/16/19 12:00 36.2 87 22 100/56 (71) 98 Nasal Cannula 5.00 05/16/19 09:00 97 High Flow N/C 4.00 05/16/19 08:30 36.2 71 20 115/68 (84) 98 Nasal Cannula 4.00 05/16/19 06:46 96 I & O 05/17/19 07:00 Intake Total 595 ml Output Total 800 ml Balance -205 ml Height & Weight Height: '" Weight: lbs. oz. kg; 48.00 BMI Method: General Appearance: No Apparent Distress, WD/WN, Chronically ill HEENT: PERRL/EOMI Neck: Non Tender, Supple Respiratory: Lungs Clear Cardiovascular: Regular Rate, Rhythm Capillary Refill: Less Than 3 Seconds Gastrointestinal: soft, tenderness (Right lower qudrant of abdominal wall with subcutaneous mass( hematoma)) Extremity: Pedal Edema Neurologic/Psychiatric: Alert, Oriented x3, No Motor/Sensory Deficits, Normal Mood/Affect Skin: Other (SQ hematoma noted at 1630 hours when transferred to ICU abdominal) Lymphatic: No Adenopathy Results Lab Laboratory Tests 05/16/19 04:04 05/16/19 14:20 05/16/19 18:05 05/17/19 00:47 05/17/19 03:09 05/17/19 03:47 Assessment/Plan Assessment/Plan Acute on chronic respiratory failure -PT is approved for home vent to mask. DME will set it up upon discharge. -DuoNeb q 4 -solumedrol 40 Q 12 -Zosyn -- Auto stopped yesterday -secondary to pt's declining condition. I am going to restart Zosyn and add vanco. -Repeat Davila cultures and Lactic acid Anemia with sinus tach -Check stat CT of chest abd/pelvis -D/C Lovenox -transfuse 2 units PRBC Atelectasis - -Productive cough of Rodríguez sputum -Repeat Sputum culture- showe usual upper respiratory leatha Debility -PT/OT History of recurrent nonsustained ventricular tachycardia, history of syncope in the past. -Patient has an attempt for ICD placement and became severely hypoxemic during induction of sedation. Procedure was canceled. Pulmonary edema and bilateral pleural effusions -Lasix COPDAE -solumedrol -SVNs with duoneb Q 4 and add pulmicort BID CHFAE -acute on chronic left ventricular diastolic dysfunction -Lasix -Echo -Cardiology following -Cardiac catheterization was done in December 2018 in [facility] and reported having nonobstructive coronary artery disease Obesity OHS -Will benefit from home vent to mask Anemia -Monitor -Check occult stool Paroxysmal atrial fibrillation Peripheral edema, improving slowly Hypertension Hyperlipidemia Morbid obesity PANKAJ VALENTINE DO May 17, 2019 06:51
--- NOTE | 2019-05-17 07:29 | Diagnostic Imaging Report ---
PROCEDURE: CT chest, abdomen, and pelvis with contrast. TECHNIQUE: Multiple contiguous axial images were obtained through the chest, abdomen, and pelvis after the administration of intravenous contrast. Auto Exposure Controls were utilized during the CT exam to meet ALARA standards for radiation dose reduction. INDICATION: Bruising. CHEST: Some subcutaneous infiltration and skin thickening in the left upper chest peripheral to a pacemaker device. Device itself results in beam hardening artifact limiting regional evaluation. No identifiable regional fluid collection is seen. There is bibasilar atelectasis. There is no pneumothorax. No fracture deformity. The thoracic aorta is patent and nonaneurysmal. No central pulmonary arterial filling defect or embolus found. There is a small hiatal hernia. ABDOMEN AND PELVIS: There is a large somewhat bilobed configured right-sided rectus sheath hematoma extending from the pelvis just above the pubic symphysis superiorly to the level of the anterior aspect of the right hemidiaphragm. Cephalocaudal length is about 33 cm, its larger inferior lobation in the axial plane measured 15 cm transverse by 9.5 cm AP. At its inferior lobation on the delayed images there is some puddling of contrast consistent with at least some degree of continued or active bleeding. In the lower pelvis, there is a small amount of extraperitoneal blood in the space of Retzius. No intraperitoneal free fluid. The liver appeared unremarkable. Spleen and pancreas unremarkable. Small nodules in the left adrenal have density values favoring incidental adenomas. The kidneys are unobstructed, well-perfused and normal. The urinary bladder is catheterized and decompressed around a Nova. Uterus and adnexa appeared unremarkable. IMPRESSION: CHEST: Some subcutaneous infiltration peripheral to a recently placed left chest battery for pacemaker device. This is not an unexpected finding. There is no pneumothorax and no discrete thoracic fluid collection. ABDOMEN AND PELVIS: 1. A very large bilobed configured rectus sheath hematoma on the right, dimensions above, within its caudal lobation inferiorly there is some active bleeding. Outside of the sheath there is a small amount of pelvic extraperitoneal blood within the space of Retzius, no intraperitoneal hemorrhage. 2. The remaining abdominal pelvic solid and hollow viscera appeared nonacute. Pertinent results discussed by phone with Dr. Hull. Dictated by: Dictated on workstation # [id number]
--- NOTE | 2019-05-17 07:45 | NUR ---
NOTIFIED DR SOTO OF CT RESULTS. NO NEW ORDERS
[2019-05-17] MEDS ORDERED: DIGOXIN 0.25 MG/ML (LANOXIN) 2 ML AMP ONE (07:51)
[2019-05-17] MEDS: RT-ALBUTEROL/IPRATROPIUM 3 ML (DUONEB) VIAL INH SCH ×5 (07:54→23:39)
[2019-05-17] MEDS: RT-BUDESONIDE NEBS 0.5 MG/2ML (PULMICORT) AMP INH SCH ×2 (07:54→19:15)
[2019-05-17] MEDS ORDERED: DIGOXIN 0.25 MG/ML (LANOXIN) 2 ML AMP IV NR (08:00)
--- NOTE | 2019-05-17 08:12 | Progress Note - Surgery ---
ZOIE SANTOS,MED STUDENT 05/17/19 0812: Subjective Date Seen by a Provider: May 17, 2019 Time Seen by a Provider: 07:30 Subjective/Events-last exam Patient seen and examined. She says that she is feeling a little better today but is having some anxiety and says that she would like something to help. She says that she does not want morphine but does want to be put in a twilight state. When asked about her abdominal pain, she admits to still having pain in her RLQ and RUO. Review of Systems General: No Chills; Fatigue, Appetite HEENT: No Head Aches Pulmonary: No Dyspnea, No Cough Cardiovascular: No: Chest Pain, Palpitations Gastrointestinal: Abdominal Pain; No: Nausea, Vomiting Focused Exam Lactate Level 05/16/19 14:20: Lactic Acid Level 3.01*H 05/16/19 16:50: Lactic Acid Level 2.13*H Objective Exam Vital Signs Date Time Temp Pulse Resp B/P (MAP) Pulse Ox O2 Delivery O2 Flow Rate FiO2 05/17/19 07:10 95 Nasal Cannula 4.00 05/17/19 07:05 95 Nasal Cannula 4.00 05/17/19 06:00 129 22 109/60 (76) High Flow N/C 5.00 05/17/19 05:00 113 26 107/69 (82) High Flow N/C 5.00 05/17/19 04:00 110 21 124/94 (104) 95 High Flow N/C 5.00 05/17/19 04:00 High Flow N/C 5.00 05/17/19 03:00 98 17 95/67 (76) 91 High Flow N/C 5.00 05/17/19 02:00 84 27 100/69 (79) 96 High Flow N/C 5.00 05/17/19 01:00 100 23 98/69 (79) 93 High Flow N/C 5.00 05/17/19 01:00 100 05/17/19 00:48 90/62 05/17/19 00:30 107 19 98/60 (73) 92 High Flow N/C 5.00 05/17/19 00:00 High Flow N/C 5.00 05/16/19 23:29 36.2 05/16/19 23:00 98 29 113/63 (80) 95 High Flow N/C 5.00 05/16/19 22:00 100 26 120/77 (91) 93 High Flow N/C 5.00 05/16/19 21:39 96 Nasal Cannula 4.00 05/16/19 21:00 93 22 123/82 (96) 93 High Flow N/C 5.00 05/16/19 20:00 High Flow N/C 5.00 05/16/19 20:00 36.6 05/16/19 20:00 106 27 98/40 (59) 95 High Flow N/C 5.00 05/16/19 19:02 94 Nasal Cannula 5.00 05/16/19 19:02 94 Nasal Cannula 5.00 05/16/19 19:00 127 05/16/19 19:00 105 16 104/62 (76) 84 High Flow N/C 5.00 05/16/19 18:00 158 18 116/69 (85) 93 High Flow N/C 5.00 05/16/19 17:00 115 20 100/63 (75) 92 High Flow N/C 5.00 05/16/19 16:18 132/107 05/16/19 16:00 36.2 05/16/19 16:00 High Flow N/C 5.00 05/16/19 16:00 140 17 117/80 (92) High Flow N/C 5.00 05/16/19 15:00 129 24 116/77 (90) 95 High Flow N/C 5.00 05/16/19 14:15 142 22 98/76 (83) 94 High Flow N/C 5.00 05/16/19 14:03 141 05/16/19 13:18 96 Nasal Cannula 5.00 05/16/19 12:46 129 05/16/19 12:30 36.2 105 22 153/66 (95) 99 Nasal Cannula 5.00 05/16/19 12:00 36.2 87 22 100/56 (71) 98 Nasal Cannula 5.00 05/16/19 09:00 97 High Flow N/C 4.00 05/16/19 08:30 36.2 71 20 115/68 (84) 98 Nasal Cannula 4.00 I & O 05/17/19 07:00 Intake Total 835 ml Output Total 1280 ml Balance -445 ml Capillary Refill : Less Than 3 SecondsLess Than 3 Seconds General Appearance: WD/WN, Chronically ill HEENT: PERRL/EOMI Neck: Non Tender, Supple Respiratory: Lungs Clear, No Accessory Muscle Use, No Respiratory Distress Cardiovascular: No No Edema; Tachycardia Peripheral Pulses: 2+ Dorsalis Pedis (R), 2+ Left Dors-Pedis (L), 2+ Radial Pulses (R), 2+ Radial Pulses (L) Gastrointestinal: normal bowel sounds, soft, tenderness (Right lower qudrant of abdominal wall with subcutaneous mass( hematoma)) Extremity: Pedal Edema Neurologic/Psychiatric: Alert, Oriented x3 Skin: Ecchymosis (Across chest worse on left with extension into axilla, across lower abdomen ), Pallor, Other (SQ hematoma in RLQ) Lymphatic: No Adenopathy Results Lab Laboratory Tests 05/16/19 08:58: Glucometer 375H 05/16/19 11:14: Glucometer 267H 05/16/19 14:20: White Blood Count 24.9H, Red Blood Count 2.83L, Hemoglobin 7.9L, Hematocrit 25L, Mean Corpuscular Volume 89, Mean Corpuscular Hemoglobin 28, Mean Corpuscular Hemoglobin Concent 31L, Red Cell Distribution Width 14.9H, Platelet Count 286, Mean Platelet Volume 10.2, Neutrophils (%) (Auto) 89H, Lymphocytes (%) (Auto) 5L , Monocytes (%) (Auto) 7, Eosinophils (%) (Auto) 0, Basophils (%) (Auto) 0, Neutrophils # (Auto) 22.1H, Lymphocytes # (Auto) 1.1, Monocytes # (Auto) 1.6H, Eosinophils # (Auto) 0.0, Basophils # (Auto) 0.0, Neutrophils % (Manual) 86, Lymphocytes % (Manual) 8, Monocytes % (Manual) 5, Band Neutrophils 1, Nucleated Red Blood Cells 2, Anisocytosis SLIGHT, Tear Drop Cells SLIGHT, Helmet Cells SLIGHT, Sodium Level 133L, Potassium Level 4.1, Chloride Level 88L, Carbon D ioxide Level 28, Anion Gap 17H, Blood Urea Nitrogen 46H, Creatinine 1.00, Estimat Glomerular Filtration Rate 55, BUN/Creatinine Ratio 46, Glucose Level 272H, Lactic Acid Level 3.01*H, Calcium Level 7.5L, Corrected Calcium 7.9L, Phosphorus Level 5.1H, Magnesium Level 2.0, Total Bilirubin 0.5, Aspartate Amino Transf (AST/SGOT) 9, Alanine Aminotransferase (ALT/SGPT) 18, Alkaline Phosphatase 64, Total Protein 5.4L, Albumin 3.5 05/16/19 15:51: Glucometer 258H 05/16/19 16:50: Lactic Acid Level 2.13*H, B-Type Natriuretic Peptide 41.1 05/16/19 18:05: Hemoglobin 8.0L, Hematocrit 26L 05/16/19 20:29: Glucometer 349H 05/17/19 00:47: Hemoglobin 7.0L, Hematocrit 22L 05/17/19 03:09: Prothrombin Time 13.6, INR Comment 1.0, Activated Partial Thromboplast Time < 20 L, Sodium Level 136, Potassium Level 4.0, Chloride Level 90L, Carbon Dioxide Level 33H, Anion Gap 13, Blood Urea Nitrogen 45H, Creatinine 0.88, Estimat Glomerular Filtration Rate > 60, BUN/Creatinine Ratio 51, Glucose Level 239H, Calcium Level 7.4L, Corrected Calcium 8.1L, Phosphorus Level 4.8H, Magnesium Level 2.1, Total Bilirubin 0.4, Aspartate Amino Transf (AST/SGOT) 8, Alanine Aminotransferase (ALT/SGPT) 15, Alkaline Phosphatase 50, Total Protein 4.6L, Albumin 3.1L, Triglycerides Level 117 05/17/19 03:47: White Blood Count 22.3H, Red Blood Count 2.36L, Hemoglobin 6.6*L, Hematocrit 22L , Mean Corpuscular Volume 91, Mean Corpuscular Hemoglobin 28, Mean Corpuscular Hemoglobin Concent 31L, Red Cell Distribution Width 15.0H, Platelet Count 224, Mean Platelet Volume 10.5H, Neutrophils (%) (Auto) 87H, Lymphocytes (%) (Auto) 7L, Monocytes (%) (Auto) 6, Eosinophils (%) (Auto) 0, Basophils (%) (Auto) 0, Neutrophils # (Auto) 19.3H, Lymphocytes # (Auto) 1.6, Monocytes # (Auto) 1.4H, Eosinophils # (Auto) 0.0, Basophils # (Auto) 0.0 Microbiology 05/09/19 Gram Stain - Final, Complete 05/09/19 Sputum Culture - Final, Complete Usual upper respiratory leatha 05/04/19 Blood Culture - Final, Complete No growth Assessment/Plan Assessment/Plan Assessment/Plan anemia from acute blood loss likely from lovenox shot causing hematoma hemoglobin dropped to 6.6 today - transfusions started - CT of abdomen showed a very large bilobed hemoatoma in the right rectus sheath with signs of active bleeding in the inferior lobulation. There was also a small amount of extraperitoneal blood in the space of Retzius. No signs of intraperitoneal bleeding was seen. hematoma right lower quadrant s/p recent pacemaker placement no surgical intervention, conservative measures for now will follow Clinical Quality Measures DVT/VTE Risk/Contraindication: Risk Factor Score Per Nursin RFS Level Per Nursing on Admit: 4+=Very High KODY BOLES DO 05/18/19 1416: Subjective Subjective/Events-last exam Still with pain in the right lower quadrant pain and more full feeling of hematoma going up into RUQ. Ct scan done showing rectus sheath hematoma right side of abdomen. Drop in hgb. Patient just wanting to feel better. No other compliants at this time. Denies n/v fever sweats chills or chest pain. Objective Exam General Appearance: WD/WN HEENT: PERRL/EOMI Neck: Non Tender Respiratory: Chest Non Tender, Lungs Clear, No Accessory Muscle Use, No Respiratory Distress Cardiovascular: Tachycardia Gastrointestinal: normal bowel sounds, soft, tenderness (Right lower qudrant of abdominal wall with subcutaneous mass( hematoma) slighly larger) Extremity: Pedal Edema Neurologic/Psychiatric: Alert, Oriented x3 Skin: Warm/Dry, Ecchymosis (Across chest worse on left with extension into axilla, across lower abdomen ), Pallor, Other (SQ hematoma in RLQ) Lymphatic: No Adenopathy Assessment/Plan Assessment/Plan Assessment/Plan anemia from acute blood loss likely from lovenox shot causing hematoma hemoglobin dropped to 6.6 today - transfusions started - CT of abdomen showed a very large bilobed hematoma in the right rectus sheath with signs of active bleeding in the inferior lobulation. There was also a small amount of extraperitoneal blood in the space of Retzius. No signs of intraperitoneal bleeding was seen. hematoma right lower quadrant s/p recent pacemaker placement no surgical intervention, conservative measures for now will follow follow hgb, hold any anticoagulation Supervisory-Addendum Brief Verification & Attestation Participated in pt care: history, MDM, physical Personally performed: exam, history, MDM, supervision of care Care discussed with: Medical Student Procedures: n/a Results interpretation: Verified all documentation Verification and Attestation of Medical Student E/M Service A medical student performed and documented this service in my presence. I reviewed and verified all information documented by the medical student and made modifications to such information, when appropriate. I personally performed the physical exam and medical decision making. Kody Boles, May 17, 2019,18:16 ZOIE SANTOS,MED STUDENT May 17, 2019 08:12 KODY BOLES DO May 18, 2019 14:16
[2019-05-17] MEDS ORDERED: morphine INJ 4 MG/ML 1 ML (VIAL/SYRINGE) IV PRN (08:30)
--- NOTE | 2019-05-17 08:31 | Cardiology Progress Note ---
Subjective Date Seen by Provider: May 17, 2019 Time Seen by Provider: 08:26 Subjective/Events-last exam patient is laying down in bed, complaining of lower abdominal pain, generalized fatigue, loss of energy. Review of Systems General: No Chills, No Night Sweats; Fatigue, Malaise; No Appetite, No Other HEENT: No Head Aches, No Visual Changes, No Eye Pain, No Ear Pain, No Dysphasia, No Sinus Congestion, No Post Nasal Drip, No Sore Throat, No Other Pulmonary: Dyspnea; No Cough, No Pleuritic Chest Pain, No Other Cardiovascular: Edema; No: Chest Pain, Palpitations, Orthopnea, Paroxysmal Noc. Dyspnea, Lt Headedness, Other Focused Exam Lactate Level 05/16/19 14:20: Lactic Acid Level 3.01*H 05/16/19 16:50: Lactic Acid Level 2.13*H Objective-Cardiology Exam Last Set of Vital Signs Vital Signs 05/15/19 05/16/19 05/17/19 05/17/19 10:22 23:29 06:00 07:10 Temp 36.2 Pulse 129 Resp 22 B/P (MAP) 109/60 (76) Pulse Ox 95 O2 Delivery Nasal Cannula O2 Flow Rate 4.00 FiO2 36 Capillary Refill : Less Than 3 SecondsLess Than 3 Seconds I&O Intake and Output 05/17/19 00:00 Intake Total 895 ml Output Total 1050 ml Balance -155 ml Intake Oral 775 ml IV Total 120 ml Output Urine Total 1050 ml # Bowel Movements 2 General: Alert, Oriented X3, Cooperative, Mild Distress HEENT: Mucous Memb Moist/[place] Neck: Supple, No JVD, No Thyromegaly Lungs: Normal Air Movement, Other (bilateral rhonchi) Heart: Normal S1, Normal S2, No Murmurs, Other (atrial fibrillation was rapid ventricular response) Abdomen: Normal Bowel Sounds, Soft, No Masses, Other (ddiffuse tenderness, b ruising on the abdomen and chest) Extremities: No Clubbing, Other (1+ pitting edema bilaterally) Skin: No Rashes, Other (extensive brusing in LUE and left breast) Neuro: Normal Speech, Sensation Intact, Cranial Nerves 3-12 NL Psych/Mental Status: Mental Status NL, Mood NL Results Lab Laboratory Tests 05/16/19 14:20 05/16/19 18:05 05/17/19 00:47 05/17/19 03:09 05/17/19 03:47 A/P-Cardiology Admission Diagnosis Congestive heart failure Coronary artery disease Hypertension Hyperlipidemia Assessment/Plan Status post acute respiratory failure, improving, managed by Dr. Hull Anemia, significant blood loss, have bruising over her chest, abdomen and her arms, receiving blood transfusion, Lovenox is on hold. Continue to monitor Leukocytosis, receiving antibiotics. Continue to monitor Paroxysmal atrial fibrillation, back in atrial fibrillation with rapid ventricular response, borderline hypotensive on Cardizem drip, cannot take anticoagulation at this time, I will give digoxin 1 dose and evaluate tolerance and response Debility, generalized weakness, PT/OT on case High risk of stroke, pacemaker site and left arm has significant bruising, the dressing over the pacemaker is soaked with blood, there is a slow drop in H&H. I changed Lovenox to DVT prophylaxis, patient has high risk of falling, significant amount of bleeding with the therapeutic Lovenox, receiving multiple blood transfusion. Currently no anticoagulation Recurrent nonsustained ventricular tachycardia, history of syncope, paroxysmal atrial fibrillation, had a loop recorder extracted, status post dual-chamber ICD implant by Dr. Ward, DFT testing, site is healing, finished a course of antibiotic but large bruising was noted over the area and the dressing is soaked with blood Congestive heart failure, acute on chronic left ventricular diastolic dysfunction, hypertensive heart disease. Continue to monitor Cardiac catheterization was done in December 2018 in [facility] and reported having nonobstructive coronary artery disease COPD, restrictive lung disease, stage IV, FEV1 0.56, Dr. Hull is managing Paroxysmal atrial fibrillation, had history of recurrent falls with severe consequences, she was not considered a candidate for oral anticoagulation, continue with physical therapy for strengthening and improving gait Type II myocardial infarction, probably secondary to hypoxemia, mild elevation in troponin, had a cardiac catheterization on January 11, 2019 in [facility] and reported normal coronaries. Continue to monitor Peripheral edema, improving slowly Hypertension, monitor blood pressure Hyperlipidemia, monitor lipids Morbid obesity Clinical Quality Measures DVT/VTE Risk/Contraindication: Risk Factor Score Per Nursin RFS Level Per Nursing on Admit: 4+=Very High LINDY GROVER MD May 17, 2019 08:31
[2019-05-17] MEDS: PANTOPRAZOLE 40 MG (PROTONIX) TAB PO SCH (08:33)
[2019-05-17] MEDS: ASPIRIN E.C. 81 MG (ECOTRIN) TAB PO SCH (08:33)
[2019-05-17] MEDS: CARVEDILOL 3.125 MG (COREG) TABLET PO SCH ×2 (08:33→20:44)
--- NOTE | 2019-05-17 08:44 | Diagnostic Imaging Report ---
INDICATION: Pulmonary infiltrates. Time of exam: 4:04 AM Correlation is made with prior chest one day earlier. The heart is enlarged but stable. Cardiac defibrillator remains in place. There is some residual linear atelectasis in the right base, similar to prior exam. Otherwise, the lungs appear to be fairly clear. There is no effusion or pneumothorax. IMPRESSION: Stable chest since exam one day earlier. Dictated by: Dictated on workstation # [id number]
--- NOTE | 2019-05-17 09:23 | NUR ---
ATTEMPTED PLACEMENT OF PICC LINE X 3 WITHOUT SUCCESS. PT DOES NOT TOLERATE PROCEDURE WELL. ONCE VEIN ACCESSED PT WOULD MOVE ARM AND CAUSE GUIDEWIRE TO PULL OUT. PT STATED SHE WANTS TO BE "PUT OUT" FOR PROCEDURE. ALSO STATED THAT SHE WANTS HER ENTIRE ARM NUMBED WITH LIDOCAINE. LIDOCAINE WAS USED LOCAL AT INSERTION SITE BUT PT STILL DID NOT TOLERATE PICC LINE ACCESS. UNABLE TO OBTAIN ACCESS DUE TO PT MOVING AROUND CONSTANTLY THROUGHOUT PROCEDURE AND MOVING ARM WHILE ATTEMPTING TO ACCESS. EXTRA RN AT BEDSIDE AND ATTEMPTED TO KEEP PT STILL AND CALM WITHOUT SUCCESS. PRIMARY NURSE NOTIFIED.
--- NOTE | 2019-05-17 09:48 | Physical Therapy Evaluation ---
PT Evaluation-General Medical Diagnosis Admission Date May 04, 2019 at 16:08 Medical Diagnosis: Pacemaker/CHF/CAD Onset Date: May 09, 2019 Therapy Diagnosis Therapy Diagnosis: weakness; abn gait Precautions Precautions/Isolations: Fall Prevention, Standard Precautions Weight Bear Status Right Lower Extremity: Right Weight Bearing/Tolerated Left Lower Extremity: Left Weight Bearing/Tolerated Referral Physician: Dr. Hull Reason for Referral: Evaluation/Treatment Medical History Pertinent Medical History: Atrial Fib, COPD, GERD, HTN Current History Pt admitted to hospital due to CHF and pacemaker placement. Pt currently in ICU Reviewed History: Yes Social History Home: Single Level Current Living Status: Children Entry Into Home: Ramp Prior Prior Level of Function SCALE: Activities may be completed with or without assistive devices. 6-Djhkxukyav-nvxiecu completes the activity by him/herself with no assistance from a helper. 5-Set-up or Clean-up Assistance-helper sets up or cleans up; patient completes activity. [place] assists only prior to or following the activity. 4-Supervision or Touching Assistance-helper provides verbal cues and/or touching/steadying and/or contact guard assistance as patient completes activity. Assistance may be provided throughout the activity or intermittently. 3-Partial/Moderate Assistance-helper does LESS THAN HALF the effort. [place] lifts, holds or supports trunk or limbs, but provides less than half the effort. 2-Substantial/Maximal Assistance-helper does MORE THAN HALF the effort. [place] lifts or holds trunk or limbs and provides more than half the effort. 0-Btzdcvarw-nhwaym does ALL the effort. Patient does none of the effort to complete the activity. Or, the assistance of 2 or more helpers is required for the patient to complete the activity. If activity was not attempted, code reason: 7-Patient Refused. 9-Not Applicable-not attempted and the patient did not perform the activity b efore the current illness, exacerbation or injury. 10-Not Attempted due to Environmental Limitations-(lack of equipment, weather restraints, etc.). 88-Not Attempted due to Medical Conditions or Safety Concerns. Bed Mobility: 9 (sleeps in a recliner) Transfers (B,C,W/C): 6 Gait: 6 Stairs: 5 Indoor Mobility (Ambulation): Independent Stairs: Not [place] Prior Devices Use: Manual wheelchair, Walker (ambulates short distances only PLOF) Pt home alone during the day while her daughter works; pt walks short distances. PT Evaluation-Current Subjective Pt agrees to sit EOB with much encouragement and only agrees to sit up a short period of time, requesting to lie back down almost immediately. Pain Numeric Pain Scale: 7 Location: Anterior Location Body Site: Abdomen Pain Description: Ache Pt/Family Goals pt reports she wants to sit up in the recliner, "but not today." Objective Patient Orientation: Person, Place, Time, Situation ROM/Strength ROM Lower Extremities WFL Strength Lower Extremities strength is grossly 3/5 Integumentary/Posture Integumentary refer to nursing notes. Bowel Incontinence: No Bladder Incontinence: Nova Cath Posture symmetrical Neuromuscular (Tone, Coordination, Reflexes) intact Sensory Vision: Functional Hearing: Functional Sensation Right Lower Extremit: Impaired Sensation Left Lower Extremity: Impaired Transfers Roll Left to Right (QC): 2 Sit to Lying (QC): 2 Lying to Sitting/Side of Bed(Q: 2 Sit to Stand (QC): 88 Chair/Dxe-mp-Lfcqr Xfer(QC): 88 Car Transfer (QC): 88 Gait Does the Patient Walk?: Yes Mode of Locomotion: Both Anticipated Mode of Locomotion: Walk Walk 10 feet (QC): 88 Walk 50 ft with 2 Turns(QC): 88 Walk 150 ft (QC): 88 Walking 10ft/uneven surface-QC: 88 Gait Assistive Device: FWW Wheelchair Training Does the Pt Use a Wheelchair?: Yes Wheel 50 ft with 2 turns (QC): 88 Wheel 150 ft (QC): 88 Type of Wheelchair: Motorized Stairs 1 Step (curb) (QC): 88 4 Steps (QC): 88 12 Steps (QC): 88 Balance Sitting Static: Fair Sitting Dynamic: Fair Picking up an Object (QC): 88 Treatment Pt transferred to sit EOB/back to bed with assist of 2; sat EOB approx 2 minutes; rolling in bed to change linens and scooting all with assist of 2. Pt in bed and comfortable post treatment. Assessment/Needs Pt presents with gross functional weakness and impaired functional activity tolerance that limits mobility. She will benefit from skilled PT to progress strength and mobiltiy to allow her to return to her PLOF and home. Rehab Potential: Guarded PT Lawn Sprinkler Installer Goals Mcfp Goals PT Mcfp Goals Time Frame: May 26, 2019 Roll Left & Right (QC): 5 Sit to Lying (QC): 5 Lying-Sitting on Side/Bed(QC): 5 Sit to Stand (QC): 5 Chair/Pyu-tz-Iunjr Xfer(QC): 5 Toilet Transfer (QC): 5 Car Transfer (QC): 5 Does the Patient Walk: Yes Walk 10 feet (QC): 5 Walk 50ft with 2 Turns (QC): 5 Walk 150 ft (QC): 5 Walking 10ft on Uneven Surface: 5 1 Step (curb) (QC): 9 4 Steps (QC): 9 12 Steps (QC): 9 Picking up an Object (QC): 88 Does the Pt use WC or Scooter?: No Type: N/A Type: N/A PT Plan Problem List Problem List: Activity Tolerance, Functional Strength, Safety, Balance, Gait, Transfer, Bed Mobility Treatment/Plan Treatment Plan: Continue Plan of Care Treatment Plan: Bed Mobility, Education, Functional Activity Georges, Functional Strength, Gait, Safety, Therapeutic Exercise, Transfers Treatment Duration: May 20, 2019 Frequency: 6 times per week Estimated Hrs Per Day: .25 hour per day Patient and/or Family Agrees t: Yes Safety Risks/Education Patient Education: Transfer Techniques, Safety Issues Teaching Recipient: Patient Teaching Methods: Discussion Response to Teaching: Reinforcement Needed Time/GCodes Time In: 910 Time Out: 935 Total Billed Treatment Time: 25 Total Billed Treatment visit EVM 15 FA 10 UGO AMOR PT May 17, 2019 09:48
[2019-05-17] MEDS ORDERED: fentaNYL INJECTION 100 MCG/2 ML AMP IVP PRN (10:15)
--- NOTE | 2019-05-17 11:29 | Cardiology Progress Note ---
Cardiology SOAP Progress Note Subjective: No cardiac complaints. Objective: I&O/Vital Signs 05/17/19 05/17/19 05/17/19 05/17/19 02:00 03:00 04:00 04:00 Pulse 84 98 110 Resp 27 17 21 B/P (MAP) 100/69 (79) 95/67 (76) 124/94 (104) Pulse Ox 96 91 95 O2 Delivery High Flow N/C High Flow N/C High Flow N/C High Flow N/C O2 Flow Rate 5.00 5.00 5.00 5.00 05/17/19 05/17/19 05/17/19 05/17/19 05:00 06:00 06:40 07:00 Pulse 113 129 110 123 Resp 26 22 20 B/P (MAP) 107/69 (82) 109/60 (76) 93/63 (73) Pulse Ox 93 O2 Delivery High Flow N/C High Flow N/C High Flow N/C O2 Flow Rate 5.00 5.00 5.00 05/17/19 05/17/19 05/17/19 05/17/19 07:05 07:10 08:00 08:00 Pulse 125 Resp 25 B/P (MAP) 91/67 (75) Pulse Ox 95 95 95 O2 Delivery Nasal Cannula Nasal Cannula High Flow N/C High Flow N/C O2 Flow Rate 4.00 4.00 5.00 5.00 05/17/19 05/17/19 05/17/19 05/17/19 09:00 09:50 09:54 10:00 Temp 36.6 Pulse 94 112 Resp 23 33 B/P (MAP) 92/69 (77) 87/28 105/66 (79) Pulse Ox 96 99 97 93 O2 Delivery High Flow N/C High Flow N/C Nasal Cannula High Flow N/C O2 Flow Rate 5.00 5.00 4.00 5.00 05/17/19 05/17/19 05/17/19 05/17/19 10:05 11:00 12:00 12:00 Temp 37.2 36.5 Pulse 96 112 115 Resp 28 30 24 B/P (MAP) 105/66 124/74 (91) 126/73 (90) Pulse Ox 95 88 100 O2 Delivery High Flow N/C High Flow N/C High Flow N/C O2 Flow Rate 5.00 5.00 5.00 05/17/19 12:00 O2 Delivery High Flow N/C O2 Flow Rate 5.00 05/17/19 00:00 Intake Total 595 ml Output Total 800 ml Balance -205 ml Bruising: large amount of bruising Constitutional: appears stated age, AAO x 3; No apparent distress; well- developed, well-nourished Respiratory: chest is bilaterally symmetric, lungs clear to auscultation Cardiovascular: regular rate-rhythm, S1 and S2, other (significant bruising left upper chest.) Gastrointestional: soft, distended, audible bowel sounds; No spleenomegaly Extremities: normal range of motion, non-tender, normal inspection, pedal edema; No clubbing, No cyanosis, No significant edema Neurologic/Psychiatric: no motor/sensory deficits, alert, normal mood/affect, oriented x 3 Skin: normal color, warm/dry; No rash, No ulcerations Results/Procedures: Labs Laboratory Tests 05/16/19 14:20: White Blood Count 24.9H, Red Blood Count 2.83L, Hemoglobin 7.9L, Hematocrit 25L, Mean Corpuscular Volume 89, Mean Corpuscular Hemoglobin 28, Mean Corpuscular Hemoglobin Concent 31L, Red Cell Distribution Width 14.9H, Platelet Count 286, Mean Platelet Volume 10.2, Neutrophils (%) (Auto) 89H, Lymphocytes (%) (Auto) 5L , Monocytes (%) (Auto) 7, Eosinophils (%) (Auto) 0, Basophils (%) (Auto) 0, Neutrophils # (Auto) 22.1H, Lymphocytes # (Auto) 1.1, Monocytes # (Auto) 1.6H, Eosinophils # (Auto) 0.0, Basophils # (Auto) 0.0, Neutrophils % (Manual) 86, Ly mphocytes % (Manual) 8, Monocytes % (Manual) 5, Band Neutrophils 1, Nucleated Red Blood Cells 2, Anisocytosis SLIGHT, Tear Drop Cells SLIGHT, Helmet Cells SLIGHT, Sodium Level 133L, Potassium Level 4.1, Chloride Level 88L, Carbon Dioxide Level 28, Anion Gap 17H, Blood Urea Nitrogen 46H, Creatinine 1.00, Estimat Glomerular Filtration Rate 55, BUN/Creatinine Ratio 46, Glucose Level 272H, Lactic Acid Level 3.01*H, Calcium Level 7.5L, Corrected Calcium 7.9L, Ph osphorus Level 5.1H, Magnesium Level 2.0, Total Bilirubin 0.5, Aspartate Amino Transf (AST/SGOT) 9, Alanine Aminotransferase (ALT/SGPT) 18, Alkaline Phosphatase 64, Total Protein 5.4L, Albumin 3.5 05/16/19 15:51: Glucometer 258H 05/16/19 16:50: Lactic Acid Level 2.13*H, B-Type Natriuretic Peptide 41.1 05/16/19 18:05: Hemoglobin 8.0L, Hematocrit 26L 05/16/19 20:29: Glucometer 349H 05/17/19 00:47: Hemoglobin 7.0L, Hematocrit 22L 05/17/19 03:09: Prothrombin Time 13.6, INR Comment 1.0, Activated Partial Thromboplast Time < 20L, Sodium Level 136, Potassium Level 4.0, Chloride Level 90L, Carbon Dioxide Level 33H, Anion Gap 13, Blood Urea Nitrogen 45H, Creatinine 0.88, Estimat Glomerular Filtration Rate > 60, BUN/Creatinine Ratio 51, Glucose Level 239H, Calcium Level 7.4L, Corrected Calcium 8.1L, Phosphorus Level 4.8H, Magnesium Level 2.1, Total Bilirubin 0.4, Aspartate Amino Transf (AST/SGOT) 8, Alanine Aminotransferase (ALT/SGPT) 15, Alkaline Phosphatase 50, Total Protein 4.6L, Albumin 3.1L, Triglycerides Level 117 05/17/19 03:47: Hemoglobin 6.6*L, Hematocrit 22L, White Blood Count 22.3H, Red Blood Count 2.36L , Mean Corpuscular Volume 91, Mean Corpuscular Hemoglobin 28, Mean Corpuscular Hemoglobin Concent 31L, Red Cell Distribution Width 15.0H, Platelet Count 224, Mean Platelet Volume 10.5H, Neutrophils (%) (Auto) 87H, Lymphocytes (%) (Auto) 7L, Monocytes (%) (Auto) 6, Eosinophils (%) (Auto) 0, Basophils (%) (Auto) 0, Neutrophils # (Auto) 19.3H, Lymphocytes # (Auto) 1.6, Monocytes # (Auto) 1.4H, Eosinophils # (Auto) 0.0, Basophils # (Auto) 0.0 05/17/19 11:13: Glucometer 284H Microbiology 05/09/19 Gram Stain - Final, Complete 05/09/19 Sputum Culture - Final, Complete Usual upper respiratory leatha 05/04/19 Blood Culture - Final, Complete No growth A/P: Assessment/Dx: Numerous episodes of sustained VT, Syncope, Idiopathic VT, PAF Plan: Numerous episodes of sustained VT on ILR interrogation with duration > 30 seconds, working diagnosis of idiopathic VT. Echocardiogram done 04/2019 showed normal LV function. Negative Cath in 12/2018. Dual-chamber ICD placed on 05/09/2019. Implantable loop recorder was removed as well. Patient tolerated procedure well and did not have any complication. Postprocedure chest x-ray did not show any pneumothorax. Atrial paced rhythm this morning. Device interrogation was within normal limits. Antibiotic course completed. Significant bruising noted in the left upper extremity and the left upper chest as well as the groin. Likely pocket hematoma as well. Patient was on high-dose Lovenox which has been changed to DVT prophylaxis dose on 05/15/2019. Syncope, likely secondary to sustained VT. Idiopathic VT, on verapamil. PAF, oral anticoagulation therapy contraindicated due to significant bleeding and anemia. Cardizem for rate control. Can add digoxin. Severe obstructive and restrictive lung disease, extubated today. Defer to Dr. Hull and the primary team. Thank you for your consultation. Please call me if you have any questions. John Ward MD, FACP, FACC, FSCAI, FHRS, CCDS Interventional Cardiology Cardiac Electrophysiology Vascular Medicine and Endovascular Interventions Winston WARD MD May 17, 2019 11:28
--- NOTE | 2019-05-17 12:00 | Occ Therapy Progress Note ---
Therapy Progress Note OT order received, chart reviewed. Attempted treatment twice this date. At first attempt, pt. receiving PICC line. Spoke with nursing. They advised to only sit on side of bed if pt. willing, no standing/ambulation/transfers. Attempted to see pt.again. Pt. in bed. States that her attempt to get up earlier with PT was very painful, and she did not want to again at this time. Pt. receiving blood, and reports IV is hurting. Nursing aware and brings ice. Noted significant bruising on left side of body from pacemaker placement. Pt. reports that she was able to eat earlier, and swallow with no difficulty. Unable to assess UE ROM due to pacemaker precautions and BP cuff on right side. Did not remove as HR was 122 at rest. ICU team monitoring this. Pt. requests to rest at this time. Will attempt back in a.m. ,, visit [id number], [id number] Pt. declines tx. MARVIN PATEL OT May 17, 2019 12:00
--- NOTE | 2019-05-17 12:09 | Progress Note - Hospitalist ---
[facility] 05/17/19 1209: Subjective HPI/CC On Admission Date Seen by Provider: May 17, 2019 Time Seen by Provider: 08:00 Chief complaint: Shortness of breath with clinical decline requiring ICU transfer History of present illness: This is a 68-year-old white female who has a history of a recent hospital stay in [place] with preparation of placing a defibrillator but could not accomplish that due to instability and questionable discharge that was recommended on hospice but patient regardless presented to the ER with shortness of breath found to have florid congestive heart failure and work-up included cardiology management but when I saw her at the bedside she appeared to be abreu ashen and pale becoming hypoxic and patient required ICU transfer just based on clinical status decompensation. Patient was found to have respiratory acidosis with hypercapnia requiring BiPAP and may ultimately require intubation. Patient appears to be extremely chronically ill and unsure of her ejection fraction but it appears to be very low with a very very poor prognosis. Subjective/Events-last exam Patient states that she feel okay Does complain of pain. Is having abdominal pain in the RLQ Review of Systems General: No Chills, No Other (fevers) HEENT: No Head Aches Pulmonary: Dyspnea; No Cough Cardiovascular: No: Chest Pain, Edema Gastrointestinal: Abdominal Pain; No: Nausea, Vomiting Focused Exam Lactate Level 05/16/19 14:20: Lactic Acid Level 3.01*H 05/16/19 16:50: Lactic Acid Level 2.13*H Objective Exam Vital Signs Vital Signs Date Time Temp Pulse Resp B/P (MAP) Pulse Ox O2 Delivery O2 Flow Rate FiO2 05/17/19 10:05 37.2 96 28 105/66 95 High Flow N/C 5.00 05/15/19 10:22 36 Capillary Refill : Less Than 3 SecondsLess Than 3 Seconds General Appearance: No Apparent Distress, Obese Neck: Non Tender, Supple Respiratory: Chest Non Tender, Lungs Clear, No Accessory Muscle Use, No Respiratory Distress Cardiovascular: Regular Rate, Rhythm, Normal Peripheral Pulses (2/4 radial pusles bilaterally), Other (Edema 2+ in LE) Extremity: Non Tender, No Calf Tenderness Neurologic/Psychiatric: Alert, Oriented x3, Normal Mood/Affect Skin: Ecchymosis (Across chest worse on left with extension into axilla, across lower abdomen), Other Results/Procedures Lab Laboratory Tests 05/16/19 14:20 05/16/19 18:05 05/17/19 00:47 05/17/19 03:09 05/17/19 03:47 Patient resulted labs reviewed. Assessment/Plan Assessment and Plan Assess & Plan/Chief Complaint Abdominal RLQ hematoma causing anemia Anemia COPD exacerbation resolved CHF Shortness of breath Blood transfusion Monitor vitals Patient requiring oxygen Clinical Quality Measures DVT/VTE Risk/Contraindication: Risk Factor Score Per Nursin RFS Level Per Nursing on Admit: 4+=Very High THELMA DAS DO 05/17/192127: Subjective Subjective/Events-last exam Subcutaneous hematoma has caused hgb to go down to 6.[address] scan confirmed this Pt received transfusion Pt with a lot of complaints that she is not feeling better Pt with very complex CHF I am unsure of how much recoverability she has All pt wants to do is eat more so we will try to accommodate that request Review of Systems General: Fatigue Gastrointestinal: Abdominal Pain Objective Exam General Appearance: No Apparent Distress, WD/WN, Chronically ill, Obese, Other (pale) Respiratory: Lungs Clear Cardiovascular: Regular Rate, Rhythm Neurologic/Psychiatric: Alert, Oriented x3 Assessment/Plan Assessment and Plan Assess & Plan/Chief Complaint Transfuse CT reviewed Diagnosis/Problems Diagnosis/Problems (1) Abdominal wall hematoma Supervisory-Addendum Brief Verification & Attestation Participated in pt care: history, MDM, physical Personally performed: exam, history, MDM, supervision of care Care discussed with: Medical Student Procedures: n/a Results interpretation: Verified all documentation Verification and Attestation of Medical Student E/M Service A medical student performed and documented this service in my presence. I reviewed and verified all information documented by the medical student and made modifications to such information, when appropriate. I personally performed the physical exam and medical decision making. Thelma Das, May 17, 2019,21:27 [facility] May 17, 2019 12:09 THELMA DAS DO May 17, 2019 21:28
[2019-05-17] MEDS: FUROSEMIDE 40 MG/4 ML INJ (LASIX) IVP SCH ×2 (13:03→20:44)
[2019-05-17] MEDS: methylPREDNISolone 40 MG/ML (Solu-MEDROL) VIAL IV SCH ×2 (13:03→20:44)
[2019-05-17] MEDS: HYDROcodone/APAP 7.5 MG/325 MG (LORTAB, LORCET PLUS) TABLET PO PRN (13:04)
[2019-05-17] MEDS ORDERED: LIDOCAINE 1% INJ 20 ML 20 ML VIAL ONE (13:44)
[2019-05-17 20:08] LABS: HEMOGLOBIN 7.3 G/DL (11.5-16.0)
[2019-05-18] VITALS (24 sets, daily range): BP systolic 93–140; BP diastolic 46–94
[2019-05-18] MEDS: DILTIAZEM 30 MG (CARDIZEM) TAB PO SCH ×4 (00:06→17:00)
[2019-05-18] MEDS: NS IV 1000 ML 1,000 ML IV SCH ×3 (00:35→17:00)
[2019-05-18] MEDS: RT-ALBUTEROL/IPRATROPIUM 3 ML (DUONEB) VIAL INH SCH ×6 (03:31→22:07)
[2019-05-18] MEDS: PIPERACILLIN/TAZOBACTAM (BULK) 4.5 GM in NS (IVPB) 100 ML IV SCH (03:39)
[2019-05-18 03:43] LABS: BASOPHILS # (AUTO) 0.1 10^3/uL (0.0-0.1); BASOPHILS % (AUTO) 0 % (0-10); EOSINOPHILS % (AUTO) 0 % (0-10); HEMATOCRIT 23 % (35-52); HEMOGLOBIN 7.2 G/DL (11.5-16.0); LYMPHOCYTES # (AUTO) 1.2 X 10^3 (1.0-4.0); LYMPHOCYTES % (AUTO) 6 % (12-44); MEAN CORPUSCULAR HEMOGLOBIN 28 PG (25-34); MEAN CORPUSCULAR HGB CONC 32 G/DL (32-36); MEAN CORPUSCULAR VOLUME 88 FL (80-99); MEAN PLATELET VOLUME 9.8 FL (7.4-10.4); MONOCYTES # (AUTO) 1.3 X 10^3 (0.0-1.0); MONOCYTES % (AUTO) 7 % (0-12); NEUTROPHILS # (AUTO) 16.8 X 10^3 (1.8-7.8); NEUTROPHILS % (AUTO) 87 % (42-75); PLATELET COUNT 202 10^3/uL (130-400); RED CELL DISTRIBUTION WIDTH 16.4 % (10.0-14.5); WHITE BLOOD COUNT 19.4 10^3/uL (4.3-11.0)
[2019-05-18 03:58] LABS: ALANINE AMINOTRANSFERASE 13 U/L (0-55); ALKALINE PHOSPHATASE 45 U/L (40-136); BILIRUBIN,TOTAL 0.5 MG/DL (0.1-1.0); BUN/CREATININE RATIO 40; CALCIUM 7.1 MG/DL (8.5-10.1); CARBON DIOXIDE 32 MMOL/L (21-32); CHLORIDE 94 MMOL/L (98-107); CREATININE SERUM 0.89 MG/DL (0.60-1.30); GFR ESTIMATED > 60; GLUCOSE 289 MG/DL (70-105); MAGNESIUM 2.1 MG/DL (1.6-2.4); PHOSPHORUS 4.4 MG/DL (2.3-4.7); POTASSIUM 4.3 MMOL/L (3.6-5.0); SODIUM 137 MMOL/L (135-145); TOTAL PROTEIN 4.4 GM/DL (6.4-8.2)
--- NOTE | 2019-05-18 05:20 | Pulmonary Progress Note ---
Subjective Time Seen by a Provider: 05:20 Subjective/Events-last exam s/p 2 units PRBC. Sepsis Event Evaluation Height, Weight, BMI Height: '" Weight: lbs. oz. kg; 48.00 BMI Method: Focused Exam Lactate Level 05/16/19 14:20: Lactic Acid Level 3.01*H 05/16/19 16:50: Lactic Acid Level 2.13*H Exam Exam Vital Signs Date Time Temp Pulse Resp B/P (MAP) Pulse Ox O2 Delivery O2 Flow Rate FiO2 05/18/19 04:23 High Flow N/C 5.00 05/18/19 03:35 Nasal Cannula 3.00 05/18/19 03:31 93 Nasal Cannula 4.00 05/18/19 03:00 74 24 137/66 (89) 96 High Flow N/C 5.00 05/18/19 02:00 73 22 137/61 (86) 97 High Flow N/C 5.00 05/18/19 01:00 93 05/18/19 01:00 85 24 140/46 (77) 96 High Flow N/C 5.00 05/18/19 00:00 High Flow N/C 5.00 05/18/19 00:00 92 23 121/59 (79) 97 High Flow N/C 5.00 05/17/19 23:39 94 Nasal Cannula 5.00 05/17/19 23:00 92 25 125/70 (88) 95 High Flow N/C 5.00 05/17/19 22:00 104 28 102/68 (79) 95 High Flow N/C 5.00 05/17/19 21:00 89 24 114/73 (87) 94 High Flow N/C 5.00 05/17/19 20:00 High Flow N/C 5.00 05/17/19 20:00 35.9 05/17/19 20:00 125 30 101/67 (78) 93 High Flow N/C 5.00 05/17/19 19:18 91 Nasal Cannula 5.00 05/17/19 19:15 88 Nasal Cannula 5.00 05/17/19 19:00 122 22 112/88 (96) 93 High Flow N/C 5.00 05/17/19 19:00 131 05/17/19 18:00 126 23 116/74 (88) 90 High Flow N/C 5.00 05/17/19 17:00 123 22 104/91 (95) 91 High Flow N/C 5.00 05/17/19 16:00 High Flow N/C 5.00 05/17/19 16:00 36.6 05/17/19 16:00 125 23 79/58 (65) 91 High Flow N/C 5.00 05/17/19 15:00 109 21 120/104 (109) 90 High Flow N/C 5.00 05/17/19 14:11 97 Nasal Cannula 4.00 05/17/19 14:00 133 23 114/69 (84) High Flow N/C 5.00 05/17/19 13:21 36.7 129 29 95/80 95 High Flow N/C 5.00 05/17/19 13:00 137 19 79/60 (66) High Flow N/C 5.00 05/17/19 12:49 133 05/17/19 12:00 High Flow N/C 5.00 05/17/19 12:00 115 24 126/73 (90) 100 High Flow N/C 5.00 05/17/19 12:00 36.5 05/17/19 11:00 112 30 124/74 (91) 88 High Flow N/C 5.00 05/17/19 10:05 37.2 96 28 105/66 95 High Flow N/C 5.00 05/17/19 10:00 112 33 105/66 (79) 93 High Flow N/C 5.00 05/17/19 09:54 97 Nasal Cannula 4.00 05/17/19 09:50 36.6 94 23 87/28 99 High Flow N/C 5.00 05/17/19 09:00 92/69 (77) 96 High Flow N/C 5.00 05/17/19 08:00 125 25 91/67 (75) 95 High Flow N/C 5.00 05/17/19 08:00 High Flow N/C 5.00 05/17/19 07:10 95 Nasal Cannula 4.00 05/17/19 07:05 95 Nasal Cannula 4.00 05/17/19 07:00 123 20 93/63 (73) 93 High Flow N/C 5.00 05/17/19 06:40 110 05/17/19 06:00 129 22 109/60 (76) High Flow N/C 5.00 I & O 05/18/19 07:00 Intake Total 870 ml Output Total 2952 ml Balance -2082 ml Height & Weight Height: '" Weight: lbs. oz. kg; 48.00 BMI Method: General Appearance: No Apparent Distress, WD/WN, Chronically ill, Obese, Other (pale) HEENT: PERRL/EOMI Neck: Non Tender, Supple Respiratory: Lungs Clear Cardiovascular: Regular Rate, Rhythm Capillary Refill: Less Than 3 Seconds Peripheral Pulses: 2+ Dorsalis Pedis (R), 2+ Left Dors-Pedis (L), 2+ Radial Pulses (R), 2+ Radial Pulses (L) Gastrointestinal: normal bowel sounds, soft, tenderness (Right lower qudrant of abdominal wall with subcutaneous mass( hematoma)) Extremity: Non Tender, No Calf Tenderness Neurologic/Psychiatric: Alert, Oriented x3 Skin: Ecchymosis (Across chest worse on left with extension into axilla, across lower abdomen), Other Lymphatic: No Adenopathy Results Lab Laboratory Tests 05/16/19 14:20 05/16/19 18:05 05/17/19 00:47 05/17/19 03:09 05/17/19 03:47 05/17/19 19:58 05/18/19 03:30 Assessment/Plan Assessment/Plan Acute on chronic respiratory failure -PT is approved for home vent to mask. DME will set it up upon discharge. -DuoNeb q 4 -solumedrol 40 Q 12 -Change abx to Merrem Anemia -D/C Lovenox -S/P transfuse 2 units PRBC -Repeat Hb pending rectus sheath hematoma -Lovenox on hold -Surgery following Atelectasis - -Productive cough of Rodríguez sputum -Repeat Sputum culture- showe usual upper respiratory leatha Debility -PT/OT History of recurrent nonsustained ventricular tachycardia, history of syncope in the past. -Patient has an attempt for ICD placement and became severely hypoxemic during induction of sedation. Procedure was canceled. Pulmonary edema and bilateral pleural effusions -Lasix COPDAE -solumedrol -SVNs with duoneb Q 4 and add pulmicort BID CHFAE -acute on chronic left ventricular diastolic dysfunction -Lasix -Echo -Cardiology following -Cardiac catheterization was done in December 2018 in [facility] and reported having nonobstructive coronary artery disease Obesity OHS -Will benefit from home vent to mask Anemia -Monitor -Check occult stool Paroxysmal atrial fibrillation Peripheral edema, improving slowly Hypertension Hyperlipidemia Morbid obesity PANKAJ VALENTINE DO May 18, 2019 05:20
[2019-05-18] MEDS: POTASSIUM CL 10MEQ/50ML IVPB 50 ML IV SCH (05:37)
[2019-05-18] MEDS: CATHETER FLUSH 10 ML SYR IV SCH ×3 (05:37→22:13)
[2019-05-18] MEDS: KCL 20 MEQ TAB (K-DUR) PO SCH (05:38)
[2019-05-18] MEDS: MAGNESIUM 1 GM/100 ML IVPB 100 ML IV SCH (05:38)
[2019-05-18] MEDS: inSUlin ASPART (NovoLOG) 1 UNIT/0.01 ML (CHARGE PER UNIT) SC SCH ×4 (05:42→21:03)
--- NOTE | 2019-05-18 06:05 | Progress Note - Surgery ---
ZOIE SANTOS,MED STUDENT 05/18/19 0605: Subjective Date Seen by a Provider: May 18, 2019 Time Seen by a Provider: 05:58 Subjective/Events-last exam Patient seen and examined. She had just woke up when I went to see her this morning, and when asked how she was feeling she said "I'm sleep" and "I'm feeling better". When asked how she would rate her pain she said " I don't have any pain right now because I haven't moved yet today". Review of Systems General: No Chills; Fatigue HEENT: No Head Aches, No Dysphasia Pulmonary: No Dyspnea, No Cough Cardiovascular: No: Chest Pain, Palpitations Gastrointestinal: Abdominal Pain (right lower quadrant ); No: Nausea, Vomiting Focused Exam Lactate Level 05/16/19 14:20: Lactic Acid Level 3.01*H 05/16/19 16:50: Lactic Acid Level 2.13*H Objective Exam Vital Signs Date Time Temp Pulse Resp B/P (MAP) Pulse Ox O2 Delivery O2 Flow Rate FiO2 05/18/19 05:00 91 21 124/63 (83) 94 High Flow N/C 3.00 05/18/19 04:23 High Flow N/C 5.00 05/18/19 04:00 88 23 131/92 (105) 93 High Flow N/C 3.00 05/18/19 03:35 Nasal Cannula 3.00 05/18/19 03:31 93 Nasal Cannula 4.00 05/18/19 03:00 74 24 137/66 (89) 96 High Flow N/C 5.00 05/18/19 02:00 73 22 137/61 (86) 97 High Flow N/C 5.00 05/18/19 01:00 93 05/18/19 01:00 85 24 140/46 (77) 96 High Flow N/C 5.00 05/18/19 00:00 High Flow N/C 5.00 05/18/19 00:00 92 23 121/59 (79) 97 High Flow N/C 5.00 05/17/19 23:39 94 Nasal Cannula 5.00 05/17/19 23:00 92 25 125/70 (88) 95 High Flow N/C 5.00 05/17/19 22:00 104 28 102/68 (79) 95 High Flow N/C 5.00 05/17/19 21:00 89 24 114/73 (87) 94 High Flow N/C 5.00 05/17/19 20:00 High Flow N/C 5.00 05/17/19 20:00 35.9 05/17/19 20:00 125 30 101/67 (78) 93 High Flow N/C 5.00 05/17/19 19:18 91 Nasal Cannula 5.00 05/17/19 19:15 88 Nasal Cannula 5.00 05/17/19 19:00 122 22 112/88 (96) 93 High Flow N/C 5.00 05/17/19 19:00 131 05/17/19 18:00 126 23 116/74 (88) 90 High Flow N/C 5.00 05/17/19 17:00 123 22 104/91 (95) 91 High Flow N/C 5.00 05/17/19 16:00 High Flow N/C 5.00 05/17/19 16:00 36.6 05/17/19 16:00 125 23 79/58 (65) 91 High Flow N/C 5.00 05/17/19 15:00 109 21 120/104 (109) 90 High Flow N/C 5.00 05/17/19 14:11 97 Nasal Cannula 4.00 05/17/19 14:00 133 23 114/69 (84) High Flow N/C 5.00 05/17/19 13:21 36.7 129 29 95/80 95 High Flow N/C 5.00 05/17/19 13:00 137 19 79/60 (66) High Flow N/C 5.00 05/17/19 12:49 133 05/17/19 12:00 High Flow N/C 5.00 05/17/19 12:00 115 24 126/73 (90) 100 High Flow N/C 5.00 05/17/19 12:00 36.5 05/17/19 11:00 112 30 124/74 (91) 88 High Flow N/C 5.00 05/17/19 10:05 37.2 96 28 105/66 95 High Flow N/C 5.00 05/17/19 10:00 112 33 105/66 (79) 93 High Flow N/C 5.00 05/17/19 09:54 97 Nasal Cannula 4.00 05/17/19 09:50 36.6 94 23 87/28 99 High Flow N/C 5.00 05/17/19 09:00 92/69 (77) 96 High Flow N/C 5.00 05/17/19 08:00 125 25 91/67 (75) 95 High Flow N/C 5.00 05/17/19 08:00 High Flow N/C 5.00 05/17/19 07:10 95 Nasal Cannula 4.00 05/17/19 07:05 95 Nasal Cannula 4.00 05/17/19 07:00 123 20 93/63 (73) 93 High Flow N/C 5.00 05/17/19 06:40 110 05/17/19 06:00 129 22 109/60 (76) High Flow N/C 5.00 I & O 05/18/19 07:00 Intake Total 945 ml Output Total 3402 ml Balance -2457 ml Capillary Refill : Less Than 3 SecondsLess Than 3 Seconds General Appearance: No Apparent Distress, WD/WN, Chronically ill, Obese, Other HEENT: PERRL/EOMI Neck: Non Tender, Supple Respiratory: Lungs Clear, Normal Breath Sounds, No Accessory Muscle Use, No Respiratory Distress Cardiovascular: Regular Rate, Rhythm, Normal Peripheral Pulses Peripheral Pulses: 2+ Dorsalis Pedis (R), 2+ Left Dors-Pedis (L), 2+ Radial Pulses (R), 2+ Radial Pulses (L) Gastrointestinal: normal bowel sounds, soft, tenderness (Right lower qudrant of abdominal wall with subcutaneous mass( hematoma)) Extremity: Non Tender, No Calf Tenderness Neurologic/Psychiatric: Alert, Oriented x3 Skin: Warm/Dry, Ecchymosis (Across chest worse on left with extension into axilla, across lower abdomen), Pallor (improved from yesterday ) Results Lab Laboratory Tests 05/17/19 11:13: Glucometer 284H 05/17/19 15:30: Glucometer 384H 05/17/19 19:58: Hemoglobin 7.3L, Hematocrit 23L 05/17/19 20:34: Glucometer 398H 05/18/19 03:30: White Blood Count 19.4H, Red Blood Count 2.57L, Hemoglobin 7.2L, Hematocrit 23L, Mean Corpuscular Volume 88, Mean Corpuscular Hemoglobin 28, Mean Corpuscular Hemoglobin Concent 32, Red Cell Distribution Width 16.4H, Platelet Count 202, Mean Platelet Volume 9.8, Neutrophils (%) (Auto) 87H, Lymphocytes (%) (Auto) 6L, Monocytes (%) (Auto) 7, Eosinophils (%) (Auto) 0, Basophils (%) (Auto) 0, Neutrophils # (Auto) 16.8H, Lymphocytes # (Auto) 1.2, Monocytes # (Auto) 1.3H, Eosinophils # (Auto) 0.0, Basophils # (Auto) 0.1, Sodium Level 137, Potassium Level 4.3, Chloride Level 94L, Carbon Dioxide Level 32, Anion Gap 11, Blood Urea Nitrogen 36H, Creatinine 0.89, Estimat Glomerular Filtration Rate > 60, BUN/Creatinine Ratio 40, Glucose Level 289H, Calcium Level 7.1L, Corrected Calcium 7.9L, Phosphorus Level 4.4, Magnesium Level 2.1, Total Bilirubin 0.5, As partate Amino Transf (AST/SGOT) 8, Alanine Aminotransferase (ALT/SGPT) 13, Alkaline Phosphatase 45, Total Protein 4.4L, Albumin 3.0L, Digoxin Level 0.44L Microbiology 05/09/19 Gram Stain - Final, Complete 05/09/19 Sputum Culture - Final, Complete Usual upper respiratory leatha 05/04/19 Blood Culture - Final, Complete No growth Assessment/Plan Assessment/Plan Assessment/Plan anemia from acute blood loss likely from lovenox shot causing hematoma hemoglobin improved from 6.6 yesterday to 7.2 today - CT of abdomen from yesterday showed a very large bilobed hemoatoma in the right rectus sheath with signs of active bleeding in the inferior lobulation. There was also a small amount of extraperitoneal blood in the space of Retzius. No signs of intraperitoneal bleeding was seen. hematoma right lower quadrant s/p recent pacemaker placement Low PTT no surgical intervention, conservative measures for now will follow Clinical Quality Measures DVT/VTE Risk/Contraindication: Risk Factor Score Per Nursin RFS Level Per Nursing on Admit: 4+=Very High KODY BOLES DO 05/18/19 6734: Subjective Subjective/Events-last exam feeling better. not with much pain, but still there if moves. hgb stable. No new complaints. denies n/v fever sweats chills shortness of breath or chest pain at this time. Objective Exam General Appearance: No Apparent Distress, Chronically ill, Obese HEENT: PERRL/EOMI Neck: Non Tender Respiratory: Chest Non Tender, No Accessory Muscle Use, No Respiratory Distress Cardiovascular: Regular Rate, Rhythm Gastrointestinal: tenderness (Right lower qudrant of abdominal wall with subcutaneous mass( hematoma)) Extremity: Non Tender, No Calf Tenderness Neurologic/Psychiatric: Alert, Oriented x3 Skin: Warm/Dry, Ecchymosis (Across chest worse on left with extension into axilla, across lower abdomen), Pallor (improved from yesterday ) Lymphatic: No Adenopathy Assessment/Plan Assessment/Plan Assessment/Plan anemia from acute blood loss likely from lovenox shot causing hematoma hemoglobin improved from 6.6 yesterday to 7.2 today - CT of abdomen from yesterday showed a very large bilobed hemoatoma in the right rectus sheath with signs of active bleeding in the inferior lobulation. There was also a small amount of extraperitoneal blood in the space of Retzius. No signs of intraperitoneal bleeding was seen. hematoma right lower quadrant s/p recent pacemaker placement Low PTT no surgical intervention, conservative measures for now will follow follow hgb transfusing as needed, hold anticoagulation Supervisory-Addendum Brief Verification & Attestation Participated in pt care: history, MDM, physical Personally performed: exam, history, MDM, supervision of care Care discussed with: Medical Student Procedures: n/a Results interpretation: Verified all documentation Verification and Attestation of Medical Student E/M Service A medical student performed and documented this service in my presence. I reviewed and verified all information documented by the medical student and made modifications to such information, when appropriate. I personally performed the physical exam and medical decision making. Kody Boles, May 18, 2019,14:25 ZOIE SANTOS,MED STUDENT May 18, 2019 06:05 KODY BOLES DO May 18, 2019 14:25
[2019-05-18] MEDS: RT-BUDESONIDE NEBS 0.5 MG/2ML (PULMICORT) AMP INH SCH ×2 (06:27→18:36)
[2019-05-18] MEDS: FUROSEMIDE 40 MG/4 ML INJ (LASIX) IVP SCH ×2 (07:30→16:58)
--- NOTE | 2019-05-18 07:52 | Cardiology Progress Note ---
Subjective Date Seen by Provider: May 18, 2019 Time Seen by Provider: 07:51 Subjective/Events-last exam Patient is sitting in bed, eating breakfast, feeling better. Denied any shortness of breath, still having lower abdominal pain Review of Systems General: No Chills, No Night Sweats; Fatigue, Malaise; No Appetite, No Other HEENT: No Head Aches, No Visual Changes, No Eye Pain, No Ear Pain, No Dysphasia, No Sinus Congestion, No Post Nasal Drip, No Sore Throat, No Other Pulmonary: Dyspnea; No Cough, No Pleuritic Chest Pain, No Other Cardiovascular: No: Chest Pain, Palpitations, Orthopnea, Paroxysmal Noc. Dyspnea, Edema, Lt Headedness, Other Focused Exam Lactate Level 05/16/19 14:20: Lactic Acid Level 3.01*H 05/16/19 16:50: Lactic Acid Level 2.13*H Objective-Cardiology Exam Last Set of Vital Signs Vital Signs 05/15/19 10:22 FiO2 36 Capillary Refill : Less Than 3 SecondsLess Than 3 Seconds I&O Intake and Output 05/18/19 00:00 Intake Total 1110 ml Output Total 2932 ml Balance -1822 ml Intake Oral 1110 ml Output Urine Total 2930 ml Stool Total 2 ml General: Alert, Oriented X3, Cooperative, Mild Distress HEENT: Mucous Memb Moist/[place] Neck: Supple, No JVD, No Thyromegaly Lungs: Normal Air Movement, Other (bilateral rhonchi) Heart: Normal S1, Normal S2, No Murmurs, Other (atrial fibrillation was rapid ventricular response) Abdomen: Normal Bowel Sounds, Soft, No Masses, Other (ddiffuse tenderness, bruising on the abdomen and chest) Extremities: No Clubbing, Other (1+ pitting edema bilaterally) Skin: No Rashes, Other (extensive brusing in LUE and left breast, bruising on the abdomen) Neuro: Normal Speech, Sensation Intact, Cranial Nerves 3-12 NL Psych/Mental Status: Mental Status NL, Mood NL Results Lab Laboratory Tests 05/17/19 19:58 05/18/19 03:30 A/P-Cardiology Admission Diagnosis Congestive heart failure Coronary artery disease Hypertension Hyperlipidemia Assessment/Plan Anemia, significant blood loss, have bruising over her chest, abdomen and her arms, received blood transfusion, currently off Lovenox. Continue to monitor Paroxysmal atrial fibrillation, back in atrial fibrillation with rapid ventricular response, borderline hypotensive on Cardizem drip, cannot take ant icoagulation at this time, heart rate is better. Continue to monitor Debility, generalized weakness, PT/OT on case High risk of stroke, pacemaker site and left arm has significant bruising, the dressing over the pacemaker is soaked with blood, there is a slow drop in H&H. I changed Lovenox to DVT prophylaxis, patient has high risk of falling, significant amount of bleeding with the therapeutic Lovenox, receiving multiple blood transfusion. Currently no anticoagulation Recurrent nonsustained ventricular tachycardia, history of syncope, paroxysmal atrial fibrillation, had a loop recorder extracted, status post dual-chamber ICD implant by Dr. Ward, DFT testing, site is healing, finished a course of antibiotic but large bruising was noted over the area and the dressing is soaked with blood Congestive heart failure, acute on chronic left ventricular diastolic dysfunction, hypertensive heart disease. Continue to monitor Cardiac catheterization was done in December 2018 in [facility] and reported having nonobstructive coronary artery disease COPD, restrictive lung disease, stage IV, FEV1 0.56, Dr. Hull is managing Paroxysmal atrial fibrillation, had history of recurrent falls with severe consequences, she was not considered a candidate for oral anticoagulation, continue with physical therapy for strengthening and improving gait Type II myocardial infarction, probably secondary to hypoxemia, mild elevation in troponin, had a cardiac catheterization on January 11, 2019 in [facility] and reported normal coronaries. Continue to monitor Peripheral edema, improving slowly Hypertension, monitor blood pressure Hyperlipidemia, monitor lipids Morbid obesity Dr. Ward will be covering starting tomorrow until after the holidays Clinical Quality Measures DVT/VTE Risk/Contraindication: Risk Factor Score Per Nursin RFS Level Per Nursing on Admit: 4+=Very High LINDY GROVER MD May 18, 2019 07:52
--- NOTE | 2019-05-18 08:08 | Diagnostic Imaging Report ---
CLINICAL INDICATION: Patient with dyspnea and CHF. EXAM: Portable chest x-ray upright view. COMPARISON: Chest X-ray dated 05/17/2019. FINDINGS: Lungs/pleura: There is improved aeration of both lung bases with residual mild bibasilar atelectasis versus infiltrates. There is no pneumothorax. There is no pleural effusion. Mediastinum: Unremarkable. Pulmonary vasculature: Unremarkable. Heart: Stable cardiomegaly. Cardiac pacemaker/AICD is again noted. Bones/extrathoracic soft tissue: Right lower rib deformities are again seen.. IMPRESSION: 1: There is slight improved aeration of both lung bases with residual mild bibasilar atelectasis versus infiltrate. 2: Stable cardiomegaly with no significant pulmonary vascular congestion. Dictated by: Dictated on workstation # [id number]
[2019-05-18] MEDS ORDERED: PHARMACY TO DOSE IV SCH (08:15)
--- NOTE | 2019-05-18 08:34 | Progress Note - Hospitalist ---
[facility] 05/18/19 0834: Subjective HPI/CC On Admission Date Seen by Provider: May 18, 2019 Time Seen by Provider: 07:40 Chief complaint: Shortness of breath with clinical decline requiring ICU transfer History of present illness: This is a 68-year-old white female who has a history of a recent hospital stay in [place] with preparation of placing a defibrillator but could not accomplish that due to instability and questionable discharge that was recommended on hospice but patient regardless presented to the ER with shortness of breath found to have florid congestive heart failure and work-up included cardiology management but when I saw her at the bedside she appeared to be abreu ashen and pale becoming hypoxic and patient required ICU transfer just based on clinical status decompensation. Patient was found to have respiratory acidosis with hypercapnia requiring BiPAP and may ultimately require intubation. Patient appears to be extremely chronically ill and unsure of her ejection fraction but it appears to be very low with a very very poor prognosis. Subjective/Events-last exam Patient states that she feels better Eating breakfast this morning. Does have pain in her RLQ Patient appears to be improving overall Two blood transfusions and now Hgb at 7.2 Review of Systems General: No Chills, No Other (fevers) HEENT: No Eye Pain, No Ear Pain Pulmonary: No Dyspnea, No Cough Cardiovascular: No: Chest Pain, Edema Gastrointestinal: Abdominal Pain; No: Nausea, Vomiting Musculoskeletal: No: neck pain Focused Exam Lactate Level 05/16/19 14:20: Lactic Acid Level 3.01*H 05/16/19 16:50: Lactic Acid Level 2.13*H Objective Exam Vital Signs Vital Signs Date Time Temp Pulse Resp B/P (MAP) Pulse Ox O2 Delivery O2 Flow Rate FiO2 05/18/19 10:22 35.9 135 90 32 05/18/19 10:15 Nasal Cannula 3.00 05/18/19 10:00 120/81 (94) 05/18/19 09:00 27 Capillary Refill : Less Than 3 SecondsLess Than 3 Seconds General Appearance: No Apparent Distress, Obese Neck: Non Tender, Supple Respiratory: Chest Non Tender, Lungs Clear, Normal Breath Sounds, No Accessory Muscle Use, No Respiratory Distress Cardiovascular: Regular Rate, Rhythm, No Murmur, Normal Peripheral Pulses (2/4 ), Other (2+ edema in LE) Gastrointestinal: Soft, Tenderness (Lower Quadrants) Extremity: Non Tender, No Calf Tenderness Neurologic/Psychiatric: Alert, Oriented x3, Normal Mood/Affect Skin: Warm/Dry, Pallor Lymphatic: No Adenopathy Results/Procedures Lab Laboratory Tests 05/17/19 19:58 05/18/19 03:30 Patient resulted labs reviewed. Assessment/Plan Assessment and Plan Assess & Plan/Chief Complaint Abdominal RLQ hematoma causing anemia Anemia COPD exacerbation resolved CHF Shortness of breath Switch from IV to Oral Medications Monitor vitals Patient requiring oxygen Clinical Quality Measures DVT/VTE Risk/Contraindication: Risk Factor Score Per Nursin RFS Level Per Nursing on Admit: 4+=Very High THELMA DAS DO 05/19/19 0633: Subjective Subjective/Events-last exam Pt remains a stroke risk, Dr. Ward was very clear with that but there is no way she can tolerate any anticoagulation. Rapid heart rate will require aggressive rate control, that's the best we can hope for. Received two units of blood, Hgb remains at 7.2. White count at 19,000. Changing over to PO diuresis. Objective Exam General Appearance: Chronically ill, Other (pale, ashen no changes since admit) Respiratory: Lungs Clear Cardiovascular: Regular Rate, Rhythm Assessment/Plan Assessment and Plan Assess & Plan/Chief Complaint ICU Rate control Supervisory-Addendum Brief Verification & Attestation Participated in pt care: history, MDM, physical Personally performed: exam, history, MDM, supervision of care Care discussed with: Medical Student Procedures: n/a Results interpretation: Verified all documentation Verification and Attestation of Medical Student E/M Service A medical student performed and documented this service in my presence. I reviewed and verified all information documented by the medical student and made modifications to such information, when appropriate. I personally performed the physical exam and medical decision making. Thelma Das May 19, 2019,06:33 [facility] May 18, 2019 08:34 THELMA DAS DO May 19, 2019 06:33
[2019-05-18] MEDS: ASPIRIN E.C. 81 MG (ECOTRIN) TAB PO SCH (10:00)
[2019-05-18] MEDS: DIGOXIN 0.25 MG (LANOXIN) TAB PO SCH (10:00)
[2019-05-18] MEDS: PANTOPRAZOLE 40 MG (PROTONIX) TAB PO SCH (10:01)
[2019-05-18] MEDS: CARVEDILOL 3.125 MG (COREG) TABLET PO SCH ×2 (10:01→20:29)
[2019-05-18] MEDS: MEROPENEM 500 MG in WATER (STERILE) FOR INJECTION 10 ML IV SCH ×3 (10:01→20:29)
--- NOTE | 2019-05-18 11:15 | Physical Therapy Daily Note ---
PT Daily Note-Current Subjective Pt stating "I'm not in the mood for physical therapy", "I'm too sleepy", pt did agree to some LE ex's in bed. Pt reports she knows she should do more but just doesn't feel like it. Pain Numeric Pain Scale: 0-No Pain Comment: "as long as I'm not moving" Appearance Pt in bed upon arrival and at end of session, call light and bedside table within reach Mental Status Patient Orientation: Person, Place, Eyes Open, Situation Transfers SCALE: Activities may be completed with or without assistive devices. 1-Rnoohtfakz-npobflo completes the activity by him/herself with no assistance from a helper. 5-Set-up or Clean-up Assistance-helper sets up or cleans up; patient completes activity. [place] assists only prior to or following the activity. 4-Supervision or Touching Assistance-helper provides verbal cues and/or touching/steadying and/or contact guard assistance as patient completes activity. Assistance may be provided throughout the activity or intermittently. 3-Partial/Moderate Assistance-helper does LESS THAN HALF the effort. [place] lifts, holds or supports trunk or limbs, but provides less than half the effort. 2-Substantial/Maximal Assistance-helper does MORE THAN HALF the effort. [place] lifts or holds trunk or limbs and provides more than half the effort. 5-Flyscdzww-zoiteb does ALL the effort. Patient does none of the effort to complete the activity. Or, the assistance of 2 or more helpers is required for the patient to complete the activity. If activity was not attempted, code reason: 7-Patient Refused. 9-Not Applicable-not attempted and the patient did not perform the activity before the current illness, exacerbation or injury. 10-Not Attempted due to Environmental Limitations-(lack of equipment, weather restraints, etc.). 88-Not Attempted due to Medical Conditions or Safety Concerns. Weight Bearing Right Lower Extremity: Right Weight Bearing/Tolerated Left Lower Extremity: Left Weight Bearing/Tolerated Exercises Supine Ex: Ankle pumps (20), Heel Slides (10, AAROM), Hip abd/add (10, AAROM) Supine Reps: 10 ((+)hip IR/ER) Treatments LE ex's Assessment pt agreeing to perform only minimal activity with PT today PT Longterm Goals Longterm Goals PT Longterm Goals Time Frame: May 26, 2019 Roll Left & Right (QC): 5 Sit to Lying (QC): 5 Lying-Sitting on Side/Bed(QC): 5 Sit to Stand (QC): 5 Chair/Zjt-ti-Ufdfw Xfer(QC): 5 Toilet Transfer (QC): 5 Car Transfer (QC): 5 Does the Patient Walk: Yes Walk 10 feet (QC): 5 Walk 50ft with 2 Turns (QC): 5 Walk 150 ft (QC): 5 Walking 10ft on Uneven Surface: 5 1 Step (curb) (QC): 9 4 Steps (QC): 9 12 Steps (QC): 9 Picking up an Object (QC): 88 Does the Pt use WC or Scooter?: No Type: N/A Type: N/A PT Plan Treatment/Plan Treatment Plan: Continue Plan of Care Treatment Plan: Bed Mobility, Education, Functional Activity Georges, Functional Strength, Gait, Safety, Therapeutic Exercise, Transfers Treatment Duration: May 20, 2019 Frequency: 6 times per week Estimated Hrs Per Day: .25 hour per day Patient and/or Family Agrees t: Yes Time/GCodes Time In: 1101 Time Out: 1110 Total Billed Treatment Time: 9 Total Billed Treatment 1 visit, EX x9 min CHI BERMAN MORTARMAN May 18, 2019 11:15
--- NOTE | 2019-05-18 11:55 | Cardiology Progress Note ---
Cardiology SOAP Progress Note Subjective: Denies any cardiac complaints. Objective: I&O/Vital Signs 05/18/19 05/18/19 05/18/19 05/18/19 00:00 00:00 01:00 01:00 Pulse 92 85 93 Resp 23 24 B/P (MAP) 121/59 (79) 140/46 (77) Pulse Ox 97 96 O2 Delivery High Flow N/C High Flow N/C High Flow N/C O2 Flow Rate 5.00 5.00 5.00 05/18/19 05/18/19 05/18/19 05/18/19 02:00 03:00 03:31 03:35 Pulse 73 74 Resp 22 24 B/P (MAP) 137/61 (86) 137/66 (89) Pulse Ox 97 96 93 O2 Delivery High Flow N/C High Flow N/C Nasal Cannula Nasal Cannula O2 Flow Rate 5.00 5.00 4.00 3.00 05/18/19 05/18/19 05/18/19 05/18/19 04:00 04:23 05:00 06:00 Pulse 88 91 96 Resp 23 21 17 B/P (MAP) 131/92 (105) 124/63 (83) 129/81 (97) Pulse Ox 93 94 92 O2 Delivery High Flow N/C High Flow N/C High Flow N/C High Flow N/C O2 Flow Rate 3.00 5.00 3.00 3.00 05/18/19 05/18/19 05/18/19 05/18/19 06:28 06:36 07:00 07:00 Pulse 82 100 Resp 23 B/P (MAP) 129/71 (90) Pulse Ox 91 92 90 O2 Delivery Nasal Cannula Nasal Cannula High Flow N/C O2 Flow Rate 3.00 3.00 3.00 05/18/19 05/18/19 05/18/19 05/18/19 07:37 08:00 09:00 10:00 Temp 36.6 Pulse 121 87 100 Resp 15 27 B/P (MAP) 95/62 (73) 114/71 (85) 120/81 (94) Pulse Ox 90 93 94 O2 Delivery High Flow N/C High Flow N/C High Flow N/C O2 Flow Rate 3.00 3.00 3.00 05/18/19 05/18/19 10:15 10:22 Temp 35.9 Pulse 135 Pulse Ox 90 90 O2 Delivery Nasal Cannula O2 Flow Rate 3.00 FiO2 32 05/18/19 00:00 Intake Total 650 ml Output Total 2077 ml Balance -1427 ml Bruising: large amount of bruising Constitutional: appears stated age, AAO x 3; No apparent distress; well- developed, well-nourished Respiratory: chest is bilaterally symmetric, lungs clear to auscultation Cardiovascular: regular rate-rhythm, S1 and S2, other (significant bruising left upper chest.) Gastrointestional: soft, distended, audible bowel sounds; No spleenomegaly Extremities: normal range of motion, non-tender, normal inspection, pedal edema; No clubbing, No cyanosis, No significant edema Neurologic/Psychiatric: no motor/sensory deficits, alert, normal mood/affect, oriented x 3 Skin: normal color, warm/dry; No rash, No ulcerations Results/Procedures: Labs Laboratory Tests 05/17/19 15:30: Glucometer 384H 05/17/19 19:58: Hemoglobin 7.3L, Hematocrit 23L 05/17/19 20:34: Glucometer 398H 05/18/19 03:30: Hemoglobin 7.2L, Hematocrit 23L, White Blood Count 19.4H, Red Blood Count 2.57L, Mean Corpuscular Volume 88, Mean Corpuscular Hemoglobin 28, Mean Corpuscular Hemoglobin Concent 32, Red Cell Distribution Width 16.4H, Platelet Count 202, Mean Platelet Volume 9.8, Neutrophils (%) (Auto) 87H, Lymphocytes (%) (Auto) 6L, Monocytes (%) (Auto) 7, Eosinophils (%) (Auto) 0, Basophils (%) (Auto) 0, Neutrophils # (Auto) 16.8H, Lymphocytes # (Auto) 1.2, Monocytes # (Auto) 1.3H, Eosinophils # (Auto) 0.0, Basophils # (Auto) 0.1, Sodium Level 137, Potassium Level 4.3, Chloride Level 94L, Carbon Dioxide Level 32, Anion Gap 11, Blood Urea Nitrogen 36H, Creatinine 0.89, Estimat Glomerular Filtration Rate > 60, BUN/Creatinine Ratio 40, Glucose Level 289H, Calcium Level 7.1L, Corrected Calcium 7.9L, Phosphorus Level 4.4, Magnesium Level 2.1, Total Bilirubin 0.5, Aspartate Amino Transf (AST/SGOT) 8, Alanine Aminotransferase (ALT/SGPT) 13, Alkaline Phosphatase 45, Total Protein 4.4L, Albumin 3.0L, Digoxin Level 0.44L 05/18/19 11:09: Glucometer 252H Microbiology 05/16/19 Blood Culture - Preliminary, Resulted No growth 05/09/19 Gram Stain - Final, Complete 05/09/19 Sputum Culture - Final, Complete Usual upper respiratory leatha A/P: Assessment/Dx: Numerous episodes of sustained VT, Syncope, Idiopathic VT, PAF Plan: Numerous episodes of sustained VT on ILR interrogation with duration > 30 seconds, working diagnosis of idiopathic VT. Echocardiogram done 04/2019 showed normal LV function. Negative Cath in 12/2018. Dual-chamber ICD placed on 04/30. Implantable loop recorder was removed as well. Patient tolerated procedure well and did not have any complication. Postprocedure chest x-ray did not show any pneumothorax. Atrial paced rhythm this morning. Device interrogation was within normal limits. Antibiotic course completed. Significant bruising noted in the left upper extremity and the left upper chest as well as the groin. Likely pocket hematoma as well. Patient was on high-dose Lovenox which has been changed to DVT prophylaxis dose on 05/15/2019. No further bleeding. Patient received transfusion due to bleeding/anemia. Syncope, likely secondary to sustained VT. Idiopathic VT, on verapamil. PAF, oral anticoagulation therapy contraindicated due to significant bleeding and anemia. Cardizem for rate control. Can add digoxin. Severe obstructive and restrictive lung disease, Defer to Dr. Hull and the [facility] team. Thank you for your consultation. Please call me if you have any questions. John Ward MD, FACP, FACC, FSCAI, FHRS, CCDS Interventional Cardiology Cardiac Electrophysiology Vascular Medicine and Endovascular Interventions Winston WARD MD May 18, 2019 11:55
[2019-05-18 11:57] LABS: HEMOGLOBIN 7.3 G/DL (11.5-16.0)
--- NOTE | 2019-05-18 12:11 | Occupational Therapy Eval ---
OT Evaluation-General/PLF Medical Diagnosis Admission Date May 04, 2019 at 16:08 Medical Diagnosis: Pacemaker/CHF/CAD Onset Date: May 09, 2019 Therapy Diagnosis Therapy Diagnosis: Weakness, decreased ADL skills Precautions Precautions/Isolations: Fall Prevention, Standard Precautions Safety Interventions: None Weight Bear Status Weight Bearing Restriction: Non Weight Bearing Location Restriction: L UE Referral Physician: Dr. Hull Referral Reason: Activity Tolerance, Self Care, Evaluation/Treatment, Strengthening/ROM Medical History Pertinent Medical History: Atrial Fib, COPD, GERD, HTN Additional Medical History Pulmonary edema Current History Pt. in hospital s/p pacemaker placement. Developed hematoma in right lower abdomen due to shots. Became anemic. Hemoglobin low. Pt. received two units of RBCs yesterday. States that she is feeling slightly better, but continues to refuse all side of bed activity. Nursing monitoring HR. Reviewed History: Yes Social History Home: Single Level Current Living Status: Children Entry Into Home: Ramp ADL-Prior Level of Function SCALE: Activities may be completed with or without assistive devices. 4-Mgewrzpqdq-bckgwgt completes the activity by him/herself with no assistance from a helper. 5-Set-up or Clean-up Assistance-helper sets up or cleans up; patient completes activity. Weston assists only prior to or following the activity. 4-Supervision or Touching Assistance-helper provides verbal cues and/or touching/steadying and/or contact guard assistance as patient completes activi ty. Assistance may be provided throughout the activity or intermittently. 3-Partial/Moderate Assistance-helper does LESS THAN HALF the effort. Weston lifts, holds or supports trunk or limbs, but provides less than half the effort. 2-Substantial/Maximal Assistance-helper does MORE THAN HALF the effort. Weston lifts or holds trunk or limbs and provides more than half the effort. 7-Itovkltnc-vnqevn does ALL the effort. Patient does none of the effort to complete the activity. Or, the assistance of 2 or more helpers is required for the patient to complete the activity. If activity was not attempted, code reason: 7-Patient Refused. 9-Not Applicable-not attempted and the patient did not perform the activity before the current illness, exacerbation or injury. 10-Not Attempted due to Environmental Limitations-(lack of equipment, weather restraints, etc.). 88-Not Attempted due to Medical Conditions or Safety Concerns. Self Care: Needed Some Help (Daughter lives with pt. and assists her with ADL skills as needed.) Functional Cognition: Unknown OT Current Status Subjective Pt. does not report pain level. Mental Status/Objective Patient Orientation: Person, Place Attachments: Nova Catheter, IV, Oxygen, Telemetry Current Upper Extremity ROM Left- NT due to pacemaker precautions Right- NT due to lines and BP cuff. ADL-Treatment Eating (QC): 5 (Per pt., she ate her breakfast with no difficulty after set up.) Oral Hygiene (QC): 7 Shower/Bathe Self (QC): 10 Upper Body Dressing (QC): 10 Lower Body Dressing (QC): 10 On/Off Footwear (QC): 1 (OT adjusted slipper socks for pt. while in bed.) Toileting Hygiene (QC): 1 (Please see note.) Toilet Transfer (QC): 10 Spoke with nursing. Okay to work with pt. if pt. will participate. Still monitoring HR and low hemoglobin. Nursing to re-check hemoglobin. Pt. does not want to participate at first, but does agree to do some grooming tasks. Pt. is able to wash face with warm washcloth using right hand, and does attempt to brush hair. OT brushes for her to get more thoroughly. OT encourages pt. to let OT wash hair with shampoo cap. Pt. insistent that her daughter will do it, and states, "those caps don't work anyway." Pt. declines all OOB (seated on side for safety) activity. Pt. verbalizes that she is not comfortable, and OT attempts to adjust her. Dependent to scoot pt. in bed. Pt. verbalizes that she is sitting on bed santana. OT encourages pt. to let OT remove it. Pt. states that she would like to sit longer, as she still has "not done anything." Pt. adamant to leave bed santana in place. OT makes pt. as comfortable as possible. Pt. with water, call light, and phone in place. All needs met. Education OT Patient Education: Correct positioning, Modified ADL techniques, Progress toward Goal/Update tx plan, Purpose of tx/functional activities, Reviewed precautions, Rehab process, Transfer techniques Teaching Recipient: Patient Teaching Methods: Demonstration, Discussion Response to Teaching: Verbalize Understanding, Return Demonstration OT Short Term Goals Short Term Goals Time Frame: May 18, 2019 Eatin Oral hygiene: 5 Toileting hygiene: 3 OT Residential Goals Drapery Maker Goals Time Frame: May 25, 2019 Eating (QC): 5 Oral Hygiene (QC): 5 Toileting Hygiene (QC): 4 Shower/Bathe Self (QC): 9 (Pt. reports that daughter assists her with bathing/dressing.) Upper Body Dressing (QC): 9 Lower Body Dressing (QC): 9 On/Off Footwear (QC): 9 Additional Goals: 1-Demonstrate ADL Tasks, 2-Verbalize Understanding, 3- ImproveStrength/Georges 1=Demonstrate adherence to instructed precautions during ADL tasks. 2=Patient will verbalize/demonstrate understanding of assistive devices/modifications for ADL. 3=Patient will improve strength/tolerance for activity to enable patient to perform ADL's. OT Education/Plan Problem List/Assessment Assessment: Decreased Activ Tolerance, Decreased UE Strength, Dependent Transfe rs, Edema, Impaired Bed Mobility, Impaired Funct Balance, Impaired I ADL's, Impaired Self-Care Skills, Restricted Funct UE ROM Discharge Recommendations Plan/Recommendations: Continue POC Therapy Discharge Recommendati: Home & Family Comment Pt. is self limiting. Does not participate well. Requires max encouragement. Not interested in working on bathing/dressing due to having assistance at home. Treatment Plan/Plan of Care Treatment,Training & Education: Yes Patient would benefit from OT for education, treatment and training to promote independence in ADL's, mobility, safety and/or upper extremity function for ADL's. Plan of Care: ADL Retraining, Functional Mobility, UE Funct Exercise/Act Comment Will assist pt. with strengthening and ADL skills as she will allow. Treatment Duration: May 25, 2019 Frequency: 5 times per week Estimated Hrs Per Day: .25 hour per day Agreement: Yes Rehab Potential: Guarded Time/GCodes Start Time: 11:20 Stop Time: 11:35 Total Time Billed (hr/min): 15 Billed Treatment Time 1, MARVIN ALBERT OT May 18, 2019 12:11
--- NOTE | 2019-05-18 14:30 | NUR ---
ORDERS RECEIVED TO SEND PATIENT TO FOURTH FLOOR. PT HR IS NOW 130-160 SUSTAINED. CARDIZEM GTT RESTARTED. PROVIDERS AWARE.
--- NOTE | 2019-05-18 17:00 | NUR ---
THIS RN RECEIVED REPORT FROM PEDRO PABLO KWOK AND TOOK OVER CARE AT 1700.
[2019-05-18 18:19] LABS: HEMOGLOBIN 7.2 G/DL (11.5-16.0)
[2019-05-18] MEDS: DILTIAZEM IV FOR DRIP 125 MG in NS (IVPB) 100 ML IV SCH ×2 (20:02→22:13)
[2019-05-18] MEDS: HYDROcodone/APAP 7.5 MG/325 MG (LORTAB, LORCET PLUS) TABLET PO PRN (22:37)
[2019-05-19] VITALS (25 sets, daily range): BP systolic 88–127; BP diastolic 36–85
[2019-05-19 00:13] LABS: HEMOGLOBIN 6.2 G/DL (11.5-16.0)
[2019-05-19] MEDS: DILTIAZEM 30 MG (CARDIZEM) TAB PO SCH ×5 (00:17→23:48)
[2019-05-19] MEDS ORDERED: NS IV 500 ML 500 ML IV SCH (00:30)
[2019-05-19] MEDS: NS IV 1000 ML 1,000 ML IV SCH ×3 (00:46→16:29)
[2019-05-19] MEDS: RT-ALBUTEROL/IPRATROPIUM 3 ML (DUONEB) VIAL INH SCH ×6 (01:39→22:32)
[2019-05-19] MEDS ORDERED: FUROSEMIDE 40 MG/4 ML INJ (LASIX) IVP ONE (01:45)
[2019-05-19] MEDS: MEROPENEM 500 MG in WATER (STERILE) FOR INJECTION 10 ML IV SCH ×4 (02:24→20:20)
[2019-05-19 04:23] LABS: BASOPHILS % (AUTO) 0 % (0-10); EOSINOPHILS # (AUTO) 0.1 10^3/uL (0.0-0.3); EOSINOPHILS % (AUTO) 1 % (0-10); HEMATOCRIT 23 % (35-52); HEMOGLOBIN 7.2 G/DL (11.5-16.0); LYMPHOCYTES # (AUTO) 2.2 X 10^3 (1.0-4.0); LYMPHOCYTES % (AUTO) 15 % (12-44); MEAN CORPUSCULAR HEMOGLOBIN 29 PG (25-34); MEAN CORPUSCULAR HGB CONC 31 G/DL (32-36); MEAN CORPUSCULAR VOLUME 92 FL (80-99); MEAN PLATELET VOLUME 9.6 FL (7.4-10.4); MONOCYTES # (AUTO) 1.3 X 10^3 (0.0-1.0); MONOCYTES % (AUTO) 9 % (0-12); NEUTROPHILS # (AUTO) 10.9 X 10^3 (1.8-7.8); NEUTROPHILS % (AUTO) 75 % (42-75); PLATELET COUNT 170 10^3/uL (130-400); WHITE BLOOD COUNT 14.6 10^3/uL (4.3-11.0)
[2019-05-19 04:50] LABS: ALANINE AMINOTRANSFERASE 15 U/L (0-55); ALKALINE PHOSPHATASE 43 U/L (40-136); BILIRUBIN,TOTAL 0.8 MG/DL (0.1-1.0); BUN/CREATININE RATIO 45; CALCIUM 6.8 MG/DL (8.5-10.1); CARBON DIOXIDE 32 MMOL/L (21-32); CHLORIDE 98 MMOL/L (98-107); CREATININE SERUM 0.66 MG/DL (0.60-1.30); GFR ESTIMATED > 60; GLUCOSE 185 MG/DL (70-105); MAGNESIUM 1.8 MG/DL (1.6-2.4); PHOSPHORUS 3.6 MG/DL (2.3-4.7); POTASSIUM 3.4 MMOL/L (3.6-5.0); SODIUM 139 MMOL/L (135-145); TOTAL PROTEIN 4.3 GM/DL (6.4-8.2)
--- NOTE | 2019-05-19 05:01 | Pulmonary Progress Note ---
Subjective Time Seen by a Provider: 05:04 Subjective/Events-last exam PT required 1 more unit of PRBC last night Sepsis Event Evaluation Height, Weight, BMI Height: '" Weight: lbs. oz. kg; 48.00 BMI Method: Focused Exam Lactate Level 05/16/19 14:20: Lactic Acid Level 3.01*H 05/16/19 16:50: Lactic Acid Level 2.13*H Exam Exam Vital Signs Date Time Temp Pulse Resp B/P (MAP) Pulse Ox O2 Delivery O2 Flow Rate FiO2 05/19/19 04:00 High Flow N/C 4.00 05/19/19 04:00 35.9 05/19/19 03:20 36.1 111 18 111/70 93 05/19/19 03:00 85 25 117/60 (79) 96 High Flow N/C 3.00 05/19/19 02:00 97 18 111/79 (90) 96 High Flow N/C 3.00 05/19/19 01:39 96 Nasal Cannula 4.00 05/19/19 01:20 35.6 80 16 90/42 94 Nasal Cannula 4.00 05/19/19 01:03 35.5 108 14 94/36 93 Nasal Cannula 4.00 05/19/19 01:00 103 19 117/74 (88) 92 High Flow N/C 3.00 05/19/19 01:00 107 05/19/19 00:00 High Flow N/C 4.00 05/19/19 00:00 96 17 112/75 (87) High Flow N/C 3.00 05/18/19 23:00 101 19 103/62 (76) 94 High Flow N/C 3.00 05/18/19 22:13 95 107/63 05/18/19 22:08 92 Nasal Cannula 4.00 05/18/19 22:00 112 20 107/63 (78) 96 High Flow N/C 3.00 05/18/19 21:00 115 20 105/76 (86) 93 High Flow N/C 3.00 05/18/19 20:00 36.1 05/18/19 20:00 High Flow N/C 4.00 05/18/19 20:00 95 26 106/61 (76) 93 High Flow N/C 3.00 05/18/19 19:00 140 05/18/19 19:00 116 19 110/79 (89) 93 High Flow N/C 3.00 05/18/19 18:36 93 Nasal Cannula 4.00 05/18/19 18:00 135 20 118/84 (95) High Flow N/C 3.00 05/18/19 17:00 104 21 106/75 (85) High Flow N/C 3.00 05/18/19 17:00 High Flow N/C 4.00 05/18/19 16:07 37.2 05/18/19 16:00 High Flow N/C 4.00 05/18/19 16:00 112 26 93/54 (67) 91 High Flow N/C 3.00 05/18/19 15:00 135 17 124/94 (104) 92 High Flow N/C 3.00 05/18/19 14:03 92 Nasal Cannula 4.00 05/18/19 14:00 142 17 114/65 (81) High Flow N/C 3.00 05/18/19 13:00 116 27 131/87 (102) 94 High Flow N/C 3.00 05/18/19 12:33 114 05/18/19 12:01 36.8 05/18/19 12:00 118 30 116/88 (97) High Flow N/C 3.00 05/18/19 12:00 High Flow N/C 4.00 05/18/19 10:22 35.9 135 90 32 05/18/19 10:15 90 Nasal Cannula 3.00 05/18/19 10:00 100 120/81 (94) 94 High Flow N/C 3.00 05/18/19 09:00 87 27 114/71 (85) 93 High Flow N/C 3.00 05/18/19 08:30 High Flow N/C 3.00 05/18/19 08:00 121 15 95/62 (73) 90 High Flow N/C 3.00 05/18/19 07:37 36.6 05/18/19 07:00 100 23 129/71 (90) 90 High Flow N/C 3.00 05/18/19 07:00 82 05/18/19 06:36 92 Nasal Cannula 3.00 05/18/19 06:28 91 Nasal Cannula 3.00 05/18/19 06:00 96 17 129/81 (97) 92 High Flow N/C 3.00 05/18/19 05:00 91 21 124/63 (83) 94 High Flow N/C 3.00 I & O 05/19/19 07:00 Intake Total 2640 ml Output Total 3354 ml Balance -714 ml Height & Weight Height: '" Weight: lbs. oz. kg; 48.00 BMI Method: General Appearance: No Apparent Distress, WD/WN, Chronically ill, Obese, Other (pale) HEENT: PERRL/EOMI Neck: Non Tender, Supple Respiratory: Lungs Clear Cardiovascular: Regular Rate, Rhythm Capillary Refill: Less Than 3 Seconds Peripheral Pulses: 2+ Dorsalis Pedis (R), 2+ Left Dors-Pedis (L), 2+ Radial Pulses (R), 2+ Radial Pulses (L) Gastrointestinal: normal bowel sounds, soft, tenderness (Right lower qudrant of abdominal wall with subcutaneous mass( hematoma)) Extremity: Non Tender, No Calf Tenderness Neurologic/Psychiatric: Alert, Oriented x3 Skin: Ecchymosis (Across chest worse on left with extension into axilla, across lower abdomen), Other Lymphatic: No Adenopathy Results Lab Laboratory Tests 05/17/19 19:58 05/18/19 03:30 05/18/19 11:42 05/18/19 18:00 05/19/19 00:01 05/19/19 04:15 Assessment/Plan Assessment/Plan Acute on chronic respiratory failure -PT is approved for home vent to mask. DME will set it up upon discharge. -DuoNeb q 4 -solumedrol 40 Q 12 -Change abx to Merrem Anemia -Pt required 1 unit of PRBC last night. -D/C Lovenox -S/P transfuse 2 units PRBC -Repeat Hb pending -Surgery following rectus sheath hematoma -Lovenox on hold -Surgery following Atelectasis - -Productive cough of Rodríguez sputum -Repeat Sputum culture- showe usual upper respiratory leatha Debility -PT/OT History of recurrent nonsustained ventricular tachycardia, history of syncope in the past. -Patient has an attempt for ICD placement and became severely hypoxemic during induction of sedation. Procedure was canceled. Pulmonary edema and bilateral pleural effusions -Lasix COPDAE -solumedrol -SVNs with duoneb Q 4 and add pulmicort BID CHFAE -acute on chronic left ventricular diastolic dysfunction -Lasix -Echo -Cardiology following -Cardiac catheterization was done in December 2018 in [facility] and reported having nonobstructive coronary artery disease Obesity OHS -Will benefit from home vent to mask Anemia -Monitor -Check occult stool Paroxysmal atrial fibrillation Peripheral edema, improving slowly Hypertension Hyperlipidemia Morbid obesity PANKAJ VALENTINE DO May 19, 2019 05:01
[2019-05-19] MEDS: POTASSIUM CL 10MEQ/50ML IVPB 50 ML IV SCH (05:40)
[2019-05-19] MEDS: MAGNESIUM 1 GM/100 ML IVPB 100 ML IV SCH (05:40)
[2019-05-19] MEDS: KCL 20 MEQ TAB (K-DUR) PO SCH (05:40)
[2019-05-19] MEDS: CATHETER FLUSH 10 ML SYR IV SCH ×3 (06:21→22:03)
[2019-05-19] MEDS: RT-BUDESONIDE NEBS 0.5 MG/2ML (PULMICORT) AMP INH SCH ×2 (06:48→18:36)
[2019-05-19] MEDS: inSUlin ASPART (NovoLOG) 1 UNIT/0.01 ML (CHARGE PER UNIT) SC SCH ×4 (07:09→20:20)
[2019-05-19] MEDS: FUROSEMIDE 40 MG/4 ML INJ (LASIX) IVP SCH ×2 (07:10→16:29)
--- NOTE | 2019-05-19 07:36 | Diagnostic Imaging Report ---
INDICATION: Dyspnea. COMPARISON: 05/18/2019. TECHNIQUE: Single radiograph of the chest dated 05/19/2019 FINDINGS: Pacer device is again identified with battery pack overlying left chest. The cardiac silhouette is enlarged, though stable. Minimal central pulmonary vascular congestion. Persistent bibasilar pulmonary opacities are again identified, not significantly changed given differences in positioning and respiratory effort. No significant pleural effusion. No pneumothorax. No acute osseous abnormality. IMPRESSION: Cardiomegaly with minimal central pulmonary vascular congestion. Persistent bibasilar atelectasis and/or infiltrate. Dictated by: Dictated on workstation # [id number]
[2019-05-19] MEDS ORDERED: KCL 20 MEQ TAB (K-DUR) PO SCH (08:00)
--- NOTE | 2019-05-19 08:29 | Progress Note - Hospitalist ---
[facility] 05/19/19 0829: Subjective HPI/CC On Admission Date Seen by Provider: May 19, 2019 Time Seen by Provider: 07:30 Chief complaint: Shortness of breath with clinical decline requiring ICU transfer History of present illness: This is a 68-year-old white female who has a history of a recent hospital stay in [place] with preparation of placing a defibrillator but could not accomplish that due to instability and questionable discharge that was recommended on hospice but patient regardless presented to the ER with shortness of breath found to have florid congestive heart failure and work-up included cardiology management but when I saw her at the bedside she appeared to be abreu ashen and pale becoming hypoxic and patient required ICU transfer just based on clinical status decompensation. Patient was found to have respiratory acidosis with hypercapnia requiring BiPAP and may ultimately require intubation. Patient appears to be extremely chronically ill and unsure of her ejection fraction but it appears to be very low with a very very poor prognosis. Subjective/Events-last exam Patient continued to fall asleep during exam Required a transfusion last night due to Hgb of 6.2. Currently Hgb is 7.2. Patient does not complain of any pain or symptoms at this moment Calcium at 6.8 but has negative Chvostek sign. ABX is Merrem and WBC is 14.6 Review of Systems General: No Chills, No Other (fevers) HEENT: No Head Aches, No Eye Pain, No Ear Pain Pulmonary: No Dyspnea, No Cough Cardiovascular: No: Chest Pain, Edema Gastrointestinal: No: Nausea, Vomiting Neurological: No: Weakness, Numbness Focused Exam Lactate Level 05/16/19 14:20: Lactic Acid Level 3.01*H 05/16/19 16:50: Lactic Acid Level 2.13*H Objective Exam Vital Signs Vital Signs Date Time Temp Pulse Resp B/P (MAP) Pulse Ox O2 Delivery O2 Flow Rate FiO2 05/19/19 11:00 109 23 96/66 (76) 98 High Flow N/C 3.00 05/19/19 08:00 36.1 05/18/19 10:22 32 Capillary Refill : Less Than 3 SecondsLess Than 3 Seconds General Appearance: No Apparent Distress, Chronically ill, Obese Neck: Non Tender, Supple Respiratory: Chest Non Tender, No Accessory Muscle Use, No Respiratory Distress, Decreased Breath Sounds, Other (Chest shows ecchymosis on the left from post op ICD placement) Cardiovascular: Regular Rate, Rhythm, No Murmur, Normal Peripheral Pulses (2/4 radial bilaterally), Other (Edema 2+ LE, Anterior Left leg pain) Gastrointestinal: Soft; No Distended Extremity: No Calf Tenderness Neurologic/Psychiatric: Alert, Oriented x3, Normal Mood/Affect Skin: Normal Color, Warm/Dry Results/Procedures Lab Laboratory Tests 05/18/19 18:00 05/19/19 00:01 05/19/19 04:15 Patient resulted labs reviewed. Assessment/Plan Assessment and Plan Assess & Plan/Chief Complaint Abdominal RLQ hematoma causing anemia Anemia COPD exacerbation resolved CHF Shortness of breath Required total 3 blood transfusions due to anemia Meropenem resulted in decreased WBC Switch from IV to Oral Medications Monitor vitals Patient requiring oxygen Clinical Quality Measures DVT/VTE Risk/Contraindication: Risk Factor Score Per Nursin RFS Level Per Nursing on Admit: 4+=Very High THELMA DAS DO 05/20/19 1459: Subjective Subjective/Events-last exam Required one unit of blood last night Cardizem drip still maintained due to lack of rate control Hypotensionlimits ability to get out of bed Meropenem initiated due to abnormal chest X-ray and elevated white count Review of Systems General: Fatigue Pulmonary: Dyspnea Objective Exam General Appearance: No Apparent Distress, WD/WN, Chronically ill Respiratory: Decreased Breath Sounds Cardiovascular: Irregularly Irregular, Tachycardia Extremity: Pedal Edema Neurologic/Psychiatric: Alert, Oriented x3, No Motor/Sensory Deficits, Normal Mood/Affect Assessment/Plan Assessment and Plan Assess & Plan/Chief Complaint Blood transfusions Monitor hematoma Diagnosis/Problems Diagnosis/Problems (1) Acute on chronic heart failure Status: Acute Qualifiers: Qualified Codes: I50.43 - Acute on chronic combined systolic (congestive) and diastolic (congestive) heart failure (2) Transfusion of blood during current hospitalization (3) Poor prognosis (4) Abdominal wall hematoma (5) Debility Status: Acute (6) S/P ICD (internal cardiac defibrillator) procedure (7) Atrial fibrillation Status: Chronic Qualifiers: Qualified Codes: I48.0 - Paroxysmal atrial fibrillation (8) Anasarca Status: Chronic (9) Acute and chronic respiratory failure Status: Acute (10) CO2 narcosis Supervisory-Addendum Brief Verification & Attestation Participated in pt care: history, MDM, physical Personally performed: exam, history, MDM, supervision of care Care discussed with: Medical Student Procedures: n/a Results interpretation: Verified all documentation Verification and Attestation of Medical Student E/M Service A medical student performed and documented this service in my presence. I r eviewed and verified all information documented by the medical student and made modifications to such information, when appropriate. I personally performed the physical exam and medical decision making. Thelma Dsa, May 20, 2019,14:57 [facility] May 19, 2019 08:29 THELMA DAS DO May 20, 2019 14:59
--- NOTE | 2019-05-19 08:29 | Progress Note - Surgery ---
ZOIE SANTOS,MED STUDENT 05/19/19 0829: Subjective Date Seen by a Provider: May 19, 2019 Time Seen by a Provider: 07:43 Subjective/Events-last exam Patient seen and examined along side Student Dr. Theodore. Patient says that she is feeling better and mentioned that she feels that her heart is racing. She asked about her hemoglobing and how it is doing. She still has abdominal pain, and some anteromedial lower leg pain. She also mentioned that her hands have been getting weak shortly after she starts to eat. Review of Systems Pulmonary: No Dyspnea, No Cough Cardiovascular: Palpitations; No: Chest Pain Gastrointestinal: Abdominal Pain; No: Nausea, Vomiting Neurological: Weakness (in arms shortly after she starts to eat ) Focused Exam Lactate Level 05/16/19 14:20: Lactic Acid Level 3.01*H 05/16/19 16:50: Lactic Acid Level 2.13*H Objective Exam Vital Signs Date Time Temp Pulse Resp B/P (MAP) Pulse Ox O2 Delivery O2 Flow Rate FiO2 05/19/19 08:00 112 13 117/68 (84) High Flow N/C 3.00 05/19/19 07:00 88 25 126/84 (98) 98 High Flow N/C 3.00 05/19/19 07:00 91 05/19/19 06:49 Nasal Cannula 3.50 05/19/19 06:48 100 Nasal Cannula 4.00 05/19/19 06:00 93 26 115/84 (94) 98 High Flow N/C 3.00 05/19/19 05:00 86 14 127/70 (89) 99 High Flow N/C 3.00 05/19/19 04:00 92 24 115/62 (79) 98 High Flow N/C 3.00 05/19/19 04:00 High Flow N/C 4.00 05/19/19 04:00 35.9 05/19/19 03:20 36.1 111 18 111/70 93 05/19/19 03:00 85 25 117/60 (79) 96 High Flow N/C 3.00 05/19/19 02:00 97 18 111/79 (90) 96 High Flow N/C 3.00 05/19/19 01:39 96 Nasal Cannula 4.00 05/19/19 01:20 35.6 80 16 90/42 94 Nasal Cannula 4.00 05/19/19 01:03 35.5 108 14 94/36 93 Nasal Cannula 4.00 05/19/19 01:00 103 19 117/74 (88) 92 High Flow N/C 3.00 05/19/19 01:00 107 05/19/19 00:00 High Flow N/C 4.00 05/19/19 00:00 96 17 112/75 (87) High Flow N/C 3.00 05/18/19 23:00 101 19 103/62 (76) 94 High Flow N/C 3.00 05/18/19 22:13 95 107/63 05/18/19 22:08 92 Nasal Cannula 4.00 05/18/19 22:00 112 20 107/63 (78) 96 High Flow N/C 3.00 05/18/19 21:00 115 20 105/76 (86) 93 High Flow N/C 3.00 05/18/19 20:00 36.1 05/18/19 20:00 High Flow N/C 4.00 05/18/19 20:00 95 26 106/61 (76) 93 High Flow N/C 3.00 05/18/19 19:00 140 05/18/19 19:00 116 19 110/79 (89) 93 High Flow N/C 3.00 05/18/19 18:36 93 Nasal Cannula 4.00 05/18/19 18:00 135 20 118/84 (95) High Flow N/C 3.00 05/18/19 17:00 104 21 106/75 (85) High Flow N/C 3.00 05/18/19 17:00 High Flow N/C 4.00 05/18/19 16:07 37.2 05/18/19 16:00 High Flow N/C 4.00 05/18/19 16:00 112 26 93/54 (67) 91 High Flow N/C 3.00 05/18/19 15:00 135 17 124/94 (104) 92 High Flow N/C 3.00 05/18/19 14:03 92 Nasal Cannula 4.00 05/18/19 14:00 142 17 114/65 (81) High Flow N/C 3.00 05/18/19 13:00 116 27 131/87 (102) 94 High Flow N/C 3.00 05/18/19 12:33 114 05/18/19 12:01 36.8 05/18/19 12:00 118 30 116/88 (97) High Flow N/C 3.00 05/18/19 12:00 High Flow N/C 4.00 05/18/19 10:22 35.9 135 90 32 05/18/19 10:15 90 Nasal Cannula 3.00 05/18/19 10:00 100 120/81 (94) 94 High Flow N/C 3.00 05/18/19 09:00 87 27 114/71 (85) 93 High Flow N/C 3.00 05/18/19 08:30 High Flow N/C 3.00 I & O 05/19/19 07:00 Intake Total 2640 ml Output Total 4604 ml Balance -1964 ml Capillary Refill : Less Than 3 SecondsLess Than 3 Seconds General Appearance: No Apparent Distress, Chronically ill, Other (pale, ashen no changes since admit) HEENT: PERRL/EOMI Neck: Non Tender, Supple Respiratory: Lungs Clear, No Accessory Muscle Use, No Respiratory Distress Cardiovascular: Regular Rate, Rhythm Peripheral Pulses: 2+ Dorsalis Pedis (R), 2+ Left Dors-Pedis (L), 2+ Radial Pulses (R), 2+ Radial Pulses (L) Gastrointestinal: normal bowel sounds, soft, tenderness (Right lower qudrant of abdominal wall with subcutaneous mass( hematoma)) Extremity: No Non Tender (tenderness of anteriomedial lower leg to touch ); No Calf Tenderness; No Inflammation; Pedal Edema (mininal swelling ) Neurologic/Psychiatric: Alert, Oriented x3 Skin: Warm/Dry, Ecchymosis (across chest with extention into L axilla; across lower abdomen; purple in color with some green/yellow changes ), Pallor Results Lab Laboratory Tests 05/18/19 11:09: Glucometer 252H 05/18/19 11:42: Hemoglobin 7.3L, Hematocrit 23L 05/18/19 16:03: Glucometer 290H 05/18/19 18:00: Hemoglobin 7.2L, Hematocrit 23L 05/18/19 20:44: Glucometer 210H 05/19/19 00:01: Hemoglobin 6.2*L, Hematocrit 20*L 05/19/19 04:15: Hemoglobin 7.2L, Hematocrit 23L, White Blood Count 14.6H, Red Blood Count 2.49L, Mean Corpuscular Volume 92, Mean Corpuscular Hemoglobin 29, Mean Corpuscular Hemoglobin Concent 31L, Red Cell Distribution Width 16.0H, Platelet Count 170, Mean Platelet Volume 9.6, Neutrophils (%) (Auto) 75, Lymphocytes (%) (Auto) 15, Monocytes (%) (Auto) 9, Eosinophils (%) (Auto) 1, Basophils (%) (Auto) 0, Neutrophils # (Auto) 10.9H, Lymphocytes # (Auto) 2.2, Monocytes # (Auto) 1.3H, Eosinophils # (Auto) 0.1, Basophils # (Auto) 0.0, Sodium Level 139, Potassium Level 3.4L, Chloride Level 98, Carbon Dioxide Level 32, Anion Gap 9, Blood Urea Nitrogen 30H, Creatinine 0.66, Estimat Glomerular Filtration Rate > 60, BUN/Creatinine Ratio 45, Glucose Level 185H, Calcium Level 6.8L, Corrected Calcium 7.6L, Phosphorus Level 3.6, Magnesium Level 1.8, Total Bilirubin 0.8, Aspartate Amino Transf (AST/SGOT) 13, Alanine Aminotransferase (ALT/SGPT) 15, Alkaline Phosphatase 43, Total Protein 4.3L, Albumin 3.0L, Triglycerides Level 69 Microbiology 05/16/19 Blood Culture - Preliminary, Resulted No growth 05/09/19 Gram Stain - Final, Complete 05/09/19 Sputum Culture - Final, Complete Usual upper respiratory leatha Assessment/Plan Assessment/Plan Assessment/Plan anemia from acute blood loss likely from lovenox shot causing hematoma hemoglobin improved feel to 6.2 last night and required 1 unit of pRBC. Hbg is now 7.2 A-fib with RVR yesterday on Cardizem drip, hematoma right lower quadrant s/p recent pacemaker placement hypocalcemia possibly made worse by blood transfusions no surgical intervention, conservative measures for now will follow follow hgb transfusing as needed, hold anticoagulation; if future blood transfusions required, consider giving calcium with transfusion Clinical Quality Measures DVT/VTE Risk/Contraindication: Risk Factor Score Per Nursin RFS Level Per Nursing on Admit: 4+=Very High KODY BOLES DO 05/19/19 2384: Subjective Subjective/Events-last exam Still with abdominal discomfort right side. Hgb increasing today. Off anticoagulants. Feeling overall weak. Tolerating diet. Denies n/v fever sweats chills shortness of breath or chest pain. Objective Exam General Appearance: No Apparent Distress, Chronically ill HEENT: PERRL/EOMI Neck: Non Tender, Supple Respiratory: Chest Non Tender, No Accessory Muscle Use, No Respiratory Distress Cardiovascular: Regular Rate, Rhythm Gastrointestinal: soft, tenderness (Right lower qudrant of abdominal wall with subcutaneous mass( hematoma)) Neurologic/Psychiatric: Alert, Oriented x3 Skin: Warm/Dry, Ecchymosis (across chest with extention into L axilla; across lower abdomen; purple in color with some green/yellow changes ), Pallor Lymphatic: No Adenopathy Assessment/Plan Assessment/Plan Assessment/Plan anemia from acute blood loss likely from lovenox shot causing hematoma hemoglobin improved feel to 6.2 last night and required 1 unit of pRBC. Hbg is now 7.2 A-fib with RVR yesterday on Cardizem drip, hematoma right lower quadrant s/p recent pacemaker placement patient still with large hematoma should reabsorb over time continue to monitor for blood loss and transfuse prn no sugical intervention, and patient agrees with plan hold any anticoagulation Supervisory-Addendum Brief Verification & Attestation Participated in pt care: history, MDM, physical Personally performed: exam, history, MDM, supervision of care Care discussed with: Medical Student Procedures: n/a Results interpretation: Verified all documentation Verification and Attestation of Medical Student E/M Service A medical student performed and documented this service in my presence. I reviewed and verified all information documented by the medical student and made modifications to such information, when appropriate. I personally performed the physical exam and medical decision making. Kody Boles, May 19, 2019,17:26 ZOIE SANTOS,MED STUDENT May 19, 2019 08:29 KODY BOLES DO May 19, 2019 17:24
--- NOTE | 2019-05-19 09:35 | Physical Therapy Daily Note ---
PT Daily Note-Current Subjective 1st attempt, pt stating she needs to finish her breakfast and "I'm not ready for you, you'll have to come back later". Pt agreeable to PT session but only to "clean up" due to incontinent BM. Pt stating she would like to get up into recliner later today, but not right now, nurse aware. Pain Numeric Pain Scale: 0-No Pain Appearance Pt in bed upon arrival, awake and alert, incontinent of BM. At end of session, pt in bed on bedpan with nursing present. Mental Status Patient Orientation: Eyes Open, Normal For Age Transfers SCALE: Activities may be completed with or without assistive devices. 4-Mnedrabyxk-wcgflls completes the activity by him/herself with no assistance from a helper. 5-Set-up or Clean-up Assistance-helper sets up or cleans up; patient completes activity. [place] assists only prior to or following the activity. 4-Supervision or Touching Assistance-helper provides verbal cues and/or touching/steadying and/or contact guard assistance as patient completes activity. Assistance may be provided throughout the activity or intermittently. 3-Partial/Moderate Assistance-helper does LESS THAN HALF the effort. [place] lifts, holds or supports trunk or limbs, but provides less than half the effort. 2-Substantial/Maximal Assistance-helper does MORE THAN HALF the effort. [place] lifts or holds trunk or limbs and provides more than half the effort. 2-Ghhugugdm-jtgcyc does ALL the effort. Patient does none of the effort to complete the activity. Or, the assistance of 2 or more helpers is required for the patient to complete the activity. If activity was not attempted, code reason: 7-Patient Refused. 9-Not Applicable-not attempted and the patient did not perform the activity bef ore the current illness, exacerbation or injury. 10-Not Attempted due to Environmental Limitations-(lack of equipment, weather r estraints, etc.). 88-Not Attempted due to Medical Conditions or Safety Concerns. Roll Left & Right (QC): 2 (2 to 3 person assist, pt assisting some with attempting to teach and hold bed rail, bending knees and hips, moving LE's side to side) Weight Bearing Right Lower Extremity: Right Weight Bearing/Tolerated Left Lower Extremity: Left Weight Bearing/Tolerated Exercises Supine Ex: Ankle pumps (20), Heel Slides (20), Hip abd/add (20) Treatments strengthening, activity tolerance, bed mobility, linen change, jagruti care, bedpan Assessment pt putting more effort forth to assist with rolling and bed mobility for linen change and jagruti care, pt stating willing to get up into chair later today PT Conservation Biology Professor Goals Conservation Biology Professor Goals PT Detention Goals Time Frame: May 26, 2019 Roll Left & Right (QC): 5 Sit to Lying (QC): 5 Lying-Sitting on Side/Bed(QC): 5 Sit to Stand (QC): 5 Chair/Vqc-sr-Icpth Xfer(QC): 5 Toilet Transfer (QC): 5 Car Transfer (QC): 5 Does the Patient Walk: Yes Walk 10 feet (QC): 5 Walk 50ft with 2 Turns (QC): 5 Walk 150 ft (QC): 5 Walking 10ft on Uneven Surface: 5 1 Step (curb) (QC): 9 4 Steps (QC): 9 12 Steps (QC): 9 Picking up an Object (QC): 88 Does the Pt use WC or Scooter?: No Type: N/A Type: N/A PT Plan Treatment/Plan Treatment Plan: Continue Plan of Care Treatment Plan: Bed Mobility, Education, Functional Activity Georges, Functional Strength, Gait, Safety, Therapeutic Exercise, Transfers Treatment Duration: May 20, 2019 Frequency: 6 times per week Estimated Hrs Per Day: .25 hour per day Patient and/or Family Agrees t: Yes Safety Risks/Education Patient Education: Correct Positioning, Safety Issues Teaching Recipient: Patient Teaching Methods: Discussion Response to Teaching: Verbalize Understanding Time/GCodes Time In: 904 Time Out: 927 Total Billed Treatment Time: 23 Total Billed Treatment 1 visit, FA x23 min CHI BERMAN APPLICATIONS DEVELOPER May 19, 2019 09:35
[2019-05-19] MEDS: DIGOXIN 0.25 MG (LANOXIN) TAB PO SCH (09:48)
[2019-05-19] MEDS: PANTOPRAZOLE 40 MG (PROTONIX) TAB PO SCH (09:48)
[2019-05-19] MEDS: ASPIRIN E.C. 81 MG (ECOTRIN) TAB PO SCH (09:55)
--- NOTE | 2019-05-19 10:03 | Cardiology Progress Note ---
Cardiology SOAP Progress Note Subjective: No cardiac complaints. Objective: I&O/Vital Signs 05/19/19 05/19/19 05/19/19 05/19/19 05:00 06:00 06:48 06:49 Pulse 86 93 Resp 14 26 B/P (MAP) 127/70 (89) 115/84 (94) Pulse Ox 99 98 100 O2 Delivery High Flow N/C High Flow N/C Nasal Cannula Nasal Cannula O2 Flow Rate 3.00 3.00 4.00 3.50 05/19/19 05/19/19 05/19/19 05/19/19 07:00 07:00 08:00 08:00 Temp 36.1 Pulse 91 88 112 Resp 25 13 B/P (MAP) 126/84 (98) 117/68 (84) Pulse Ox 98 O2 Delivery High Flow N/C High Flow N/C O2 Flow Rate 3.00 3.00 05/19/19 05/19/19 05/19/19 05/19/19 09:00 10:00 11:00 12:00 Temp 36.8 Pulse 114 113 109 Resp 15 20 23 B/P (MAP) 88/57 (67) 106/63 (77) 96/66 (76) Pulse Ox 95 96 98 O2 Delivery High Flow N/C High Flow N/C High Flow N/C O2 Flow Rate 3.00 3.00 3.00 05/19/19 05/19/19 05/19/19 05/19/19 12:00 12:34 13:15 14:00 Pulse 92 89 113 101 Resp 27 24 17 B/P (MAP) 109/85 (93) 103/51 (68) 98/62 (74) Pulse Ox 98 O2 Delivery High Flow N/C High Flow N/C High Flow N/C O2 Flow Rate 3.00 3.00 3.00 05/19/19 05/19/19 05/19/19 15:00 15:16 16:00 Pulse 130 103 Resp 26 16 B/P (MAP) Pulse Ox 100 O2 Delivery High Flow N/C Nasal Cannula High Flow N/C O2 Flow Rate 3.00 3.50 3.00 05/19/19 00:00 Intake Total 830 ml Output Total 1278 ml Balance -448 ml Bruising: large amount of bruising Constitutional: appears stated age, AAO x 3; No apparent distress; well- developed, well-nourished Respiratory: chest is bilaterally symmetric, lungs clear to auscultation Cardiovascular: regular rate-rhythm, S1 and S2, other (significant bruising left upper chest.) Gastrointestional: soft, distended, audible bowel sounds; No spleenomegaly Extremities: normal range of motion, non-tender, normal inspection, pedal edema; No clubbing, No cyanosis, No significant edema Neurologic/Psychiatric: no motor/sensory deficits, alert, normal mood/affect, oriented x 3 Skin: normal color, warm/dry; No rash, No ulcerations Results/Procedures: Labs Laboratory Tests 05/18/19 18:00: Hemoglobin 7.2L, Hematocrit 23L 05/18/19 20:44: Glucometer 210H 05/19/19 00:01: Hemoglobin 6.2*L, Hematocrit 20*L 05/19/19 04:15: Hemoglobin 7.2L, Hematocrit 23L, White Blood Count 14.6H, Red Blood Count 2.49L, Mean Corpuscular Volume 92, Mean Corpuscular Hemoglobin 29, Mean Corpuscular Hemoglobin Concent 31L, Red Cell Distribution Width 16.0H, Platelet Count 170, Mean Platelet Volume 9.6, Neutrophils (%) (Auto) 75, Lymphocytes (%) (Auto) 15, Monocytes (%) (Auto) 9, Eosinophils (%) (Auto) 1, Basophils (%) (Auto) 0, Neutrophils # (Auto) 10.9H, Lymphocytes # (Auto) 2.2, Monocytes # (Auto) 1.3H, Eosinophils # (Auto) 0.1, Basophils # (Auto) 0.0, Sodium Level 139, Potassium Level 3.4L, Chloride Level 98, Carbon Dioxide Level 32, Anion Gap 9, Blood Urea Nitrogen 30H, Creatinine 0.66, Estimat Glomerular Filtration Rate > 60, BUN/Creatinine Ratio 45, Glucose Level 185H, Calcium Level 6.8L, Corrected Calcium 7.6L, Phosphorus Level 3.6, Magnesium Level 1.8, Total Bilirubin 0.8, Aspartate Amino Transf (AST/SGOT) 13, Alanine Aminotransferase (ALT/SGPT) 15, Alkaline Phosphatase 43, Total Protein 4.3L, Albumin 3.0L, Triglycerides Level 69 05/19/19 11:05: Glucometer 261H 05/19/19 14:20: Hemoglobin 7.5L, Hematocrit 24L 05/19/19 15:44: Glucometer 212H Microbiology 05/16/19 Blood Culture - Preliminary, Resulted No growth 05/09/19 Gram Stain - Final, Complete 05/09/19 Sputum Culture - Final, Complete Usual upper respiratory leatha A/P: Assessment/Dx: Numerous episodes of sustained VT, Syncope, Idiopathic VT, PAF Plan: Numerous episodes of sustained VT on ILR interrogation with duration > 30 seconds, working diagnosis of idiopathic VT. Echocardiogram done 04/2019 showed normal LV function. Negative Cath in 12/2018. Dual-chamber ICD placed on 05/09/2019. Implantable loop recorder was removed as well. Patient tolerated procedure well and did not have any complication. Postprocedure chest x-ray did not show any pneumothorax. Atrial paced rhythm this morning. Device interrogation was within normal limits. Antibiotic course completed. Significant bruising noted in the left upper extremity and the left upper chest as well as the groin. Likely pocket hematoma as well. Patient was on high-dose Lovenox which has been changed to DVT prophylaxis dose on 05/15/2019. No further bleeding. Patient received transfusion due to bleeding/anemia. Syncope, likely secondary to sustained VT. Idiopathic VT, on verapamil. PAF, oral anticoagulation therapy contraindicated due to significant bleeding and anemia. Cardizem for rate control. Can add digoxin. Severe obstructive and restrictive lung disease, Defer to Dr. Hull and the primary team. Anemia, significant blood loss, have bruising over her chest, abdomen and her arms, received blood transfusion, currently off Lovenox. Continue to monitor Paroxysmal atrial fibrillation, back in atrial fibrillation with rapid ventricular response, borderline hypotensive on Cardizem drip, cannot take antic oagulation at this time, heart rate is better. Continue to monitor Debility, generalized weakness, PT/OT on case High risk of stroke, pacemaker site and left arm has significant bruising, the dressing over the pacemaker is soaked with blood, there is a slow drop in H&H. Congestive heart failure, acute on chronic left ventricular diastolic dysfunction, hypertensive heart disease. Continue to monitor Cardiac catheterization was done in December 2018 in [facility] and reported having nonobstructive coronary artery disease Paroxysmal atrial fibrillation, had history of recurrent falls with severe consequences, she was not considered a candidate for oral anticoagulation, continue with physical therapy for strengthening and improving gait Type II myocardial infarction, probably secondary to hypoxemia, mild elevation in troponin, had a cardiac catheterization on January 11, 2019 in [facility] and reported normal coronaries. Continue to monitor Peripheral edema, improving slowly Hypertension, monitor blood pressure Hyperlipidemia, monitor lipids Morbid obesity Thank you for your consultation. Please call me if you have any questions. John Ward MD, FACP, FACC, FSCAI, FHRS, CCDS Interventional Cardiology Cardiac Electrophysiology Vascular Medicine and Endovascular Interventions Focused Exam Lactate Level Winston WARD MD May 19, 2019 10:03
--- NOTE | 2019-05-19 11:22 | Occ Therapy Progress Note ---
Therapy Progress Note Attempted OT treatment. Pt resting in bed, declined to participate secondary to fatigue. Pt requests to rest. Denied needs at this time. Will continue to monitor and complete treatment as able. 1, visit, refused MARIETTA PAIGE OT May 19, 2019 11:22
[2019-05-19] MEDS: CARVEDILOL 3.125 MG (COREG) TABLET PO SCH ×2 (11:56→20:20)
[2019-05-19 14:24] LABS: HEMOGLOBIN 7.5 G/DL (11.5-16.0)
--- NOTE | 2019-05-19 14:47 | Occupational Ther Daily Note ---
OT Current Status-Daily Note Subjective Pt in bed, states she wants to get up to BSC. RN okays and is present during transfer. Mental Status/Objective Attachments: Nova Catheter, IV, Oxygen ADL-Treatment Pt able to bring LE to EOB with min assist for left LE. Assist to raise trunk off of bed. Pt sit to stand with assist and bed raised. Pt incontinent of bowel and stood briefly for hygiene. Total assist for hygiene. Pt able to take a few steps to BSC with assist for safety and to manage multiple lines. Pt requests to "sit for awhile," stating that is what she normally does. Pt was positioned on BSC with call light in reach and daughter present. RN was made aware of pt's position and request to remain seated on BSC, states ICU staff will assist pt back to bed when ready. Continue per plan of care. Therapy Code Descriptions/Definitions Functional [place] Measure: 0=Not Assessed/NA 4=Minimal Assistance 1=Total Assistance 5=Supervision or Setup 2=Maximal Assistance 6=Modified [place] 3=Moderate Assistance 7=Complete IndependenceSCALE: Activities may be completed with or without assistive devices. 1-Tifdnkcnvk-gkqvyfo completes the activity by him/herself with no assistance from a helper. 5-Set-up or Clean-up Assistance-helper sets up or cleans up; patient completes activity. [place] assists only prior to or following the activity. 4-Supervision or Touching Assistance-helper provides verbal cues and/or touching/steadying and/or contact guard assistance as patient completes activity. Assistance may be provided throughout the activity or intermittently. 3-Partial/Moderate Assistance-helper does LESS THAN HALF the effort. [place] lifts, holds or supports trunk or limbs, but provides less than half the effort. 2-Substantial/Maximal Assistance-helper does MORE THAN HALF the effort. [place] lifts or holds trunk or limbs and provides more than half the effort. 1-Ouqvnpzkc-iadflp does ALL the effort. Patient does none of the effort to complete the activity. Or, the assistance of 2 or more helpers is required for the patient to complete the activity. If activity was not attempted, code reason: 7-Patient Refused. 9-Not Applicable-not attempted and the patient did not perform the activity before the current illness, exacerbation or injury. 10-Not Attempted due to Environmental Limitations-(lack of equipment, weather restraints, etc.). 88-Not Attempted due to Medical Conditions or Safety Concerns. Toileting Hygiene (QC): 1 Toilet Transfer (QC): 3 OT Short Term Goals Short Term Goals Time Frame: May 18, 2019 Eatin Oral hygiene: 5 Toileting hygiene: 3 OT Shed Boss Goals Shelter Goals Time Frame: May 25, 2019 Eating (QC): 5 Oral Hygiene (QC): 5 Toileting Hygiene (QC): 4 Shower/Bathe Self (QC): 9 (Pt. reports that daughter assists her with bathing/dressing.) Upper Body Dressing (QC): 9 Lower Body Dressing (QC): 9 On/Off Footwear (QC): 9 Additional Goals: 1-Demonstrate ADL Tasks, 2-Verbalize Understanding, 3- ImproveStrength/Georges 1=Demonstrate adherence to instructed precautions during ADL tasks. 2=Patient will verbalize/demonstrate understanding of assistive devices/modifications for ADL. 3=Patient will improve strength/tolerance for activity to enable patient to perform ADL's. OT Education/Plan Discharge Recommendations Plan/Recommendations: Continue POC Treatment Plan/Plan of Care Patient would benefit from OT for education, treatment and training to promote independence in ADL's, mobility, safety and/or upper extremity function for ADL's. Plan of Care: ADL Retraining, Functional Mobility, UE Funct Exercise/Act Treatment Duration: May 25, 2019 Frequency: 5 times per week Estimated Hrs Per Day: .25 hour per day Agreement: Yes Rehab Potential: Guarded Time/GCodes Start Time: 14:15 Stop Time: 14:35 Total Time Billed (hr/min): 20 Billed Treatment Time 1 visit, ADL(20minutes) MARIETTA PAIGE OT May 19, 2019 14:47
[2019-05-20] VITALS (26 sets, daily range): BP systolic 74–159; BP diastolic 55–108
[2019-05-20 00:05] LABS: HEMOGLOBIN 6.3 G/DL (11.5-16.0)
[2019-05-20] MEDS: NS IV 1000 ML 1,000 ML IV SCH ×4 (00:20→23:21)
[2019-05-20] MEDS ORDERED: NS IV 500 ML 500 ML ONE (00:48)
[2019-05-20] MEDS: MEROPENEM 500 MG in WATER (STERILE) FOR INJECTION 10 ML IV SCH ×4 (02:57→20:21)
[2019-05-20 03:57] LABS: BASOPHILS % (AUTO) 0 % (0-10); EOSINOPHILS # (AUTO) 0.2 10^3/uL (0.0-0.3); EOSINOPHILS % (AUTO) 2 % (0-10); HEMATOCRIT 26 % (35-52); LYMPHOCYTES % (AUTO) 14 % (12-44); MEAN CORPUSCULAR HEMOGLOBIN 29 PG (25-34); MEAN CORPUSCULAR HGB CONC 31 G/DL (32-36); MEAN CORPUSCULAR VOLUME 94 FL (80-99); MEAN PLATELET VOLUME 9.2 FL (7.4-10.4); MONOCYTES # (AUTO) 1.1 X 10^3 (0.0-1.0); MONOCYTES % (AUTO) 8 % (0-12); NEUTROPHILS # (AUTO) 10.7 X 10^3 (1.8-7.8); NEUTROPHILS % (AUTO) 76 % (42-75); PLATELET COUNT 146 10^3/uL (130-400); RED CELL DISTRIBUTION WIDTH 17.1 % (10.0-14.5)
[2019-05-20 03:58] LABS: HEMOGLOBIN 7.8 G/DL (11.5-16.0)
[2019-05-20 04:14] LABS: ALANINE AMINOTRANSFERASE 15 U/L (0-55); ALBUMIN 2.9 GM/DL (3.2-4.5); ALKALINE PHOSPHATASE 47 U/L (40-136); BILIRUBIN,TOTAL 0.8 MG/DL (0.1-1.0); BUN/CREATININE RATIO 35; CALCIUM 6.8 MG/DL (8.5-10.1); CARBON DIOXIDE 28 MMOL/L (21-32); CHLORIDE 100 MMOL/L (98-107); CREATININE SERUM 0.66 MG/DL (0.60-1.30); GFR ESTIMATED > 60; GLUCOSE 170 MG/DL (70-105); MAGNESIUM 1.7 MG/DL (1.6-2.4); PHOSPHORUS 3.1 MG/DL (2.3-4.7); POTASSIUM 3.5 MMOL/L (3.6-5.0); SODIUM 140 MMOL/L (135-145); TOTAL PROTEIN 4.4 GM/DL (6.4-8.2)
[2019-05-20] MEDS: POTASSIUM CL 10MEQ/50ML IVPB 50 ML IV SCH (04:27)
[2019-05-20] MEDS: MAGNESIUM 1 GM/100 ML IVPB 100 ML IV SCH ×3 (04:27→05:44)
[2019-05-20] MEDS: KCL 20 MEQ TAB (K-DUR) PO SCH (04:27)
--- NOTE | 2019-05-20 05:23 | Pulmonary Progress Note ---
Sepsis Event Evaluation Height, Weight, BMI Height: '" Weight: lbs. oz. kg; 48.00 BMI Method: Exam Exam Vital Signs Date Time Temp Pulse Resp B/P (MAP) Pulse Ox O2 Delivery O2 Flow Rate FiO2 05/20/19 04:00 90 23 123/61 (81) 95 Nasal Cannula 4.00 05/20/19 03:44 36.2 82 16 112/76 96 High Flow N/C 4.00 05/20/19 03:43 36.2 05/20/19 03:25 High Flow N/C 4.00 05/20/19 03:00 84 20 113/73 (86) 96 Nasal Cannula 4.00 05/20/19 02:57 93 Nasal Cannula 4.00 05/20/19 02:00 76 25 104/67 (79) 93 Nasal Cannula 4.00 05/20/19 01:24 36.3 81 16 106/64 93 High Flow N/C 4.00 05/20/19 01:10 36.5 81 18 100/59 High Flow N/C 4.00 05/20/19 01:00 82 05/20/19 01:00 74 25 100/59 (73) 95 Nasal Cannula 4.00 05/20/19 00:00 106 24 110/72 (85) 94 Nasal Cannula 4.00 05/19/19 23:46 High Flow N/C 4.00 05/19/19 23:45 36.5 05/19/19 23:00 106 26 97/53 (68) 93 Nasal Cannula 4.00 05/19/19 22:32 93 Nasal Cannula 4.00 05/19/19 22:00 78 20 122/73 (89) 95 Nasal Cannula 4.00 05/19/19 21:00 87 15 123/72 (89) 97 Nasal Cannula 4.00 05/19/19 20:00 112 17 116/77 (90) 97 Nasal Cannula 4.00 05/19/19 20:00 High Flow N/C 4.00 05/19/19 20:00 36.7 05/19/19 19:00 108 05/19/19 19:00 108 19 108/57 (74) 96 Nasal Cannula 4.00 05/19/19 18:35 93 Nasal Cannula 4.00 05/19/19 18:00 102 15 118/71 (87) 91 High Flow N/C 3.00 05/19/19 17:00 108 18 101/75 (84) 93 High Flow N/C 3.00 05/19/19 16:15 High Flow N/C 4.00 05/19/19 16:00 103 16 High Flow N/C 3.00 05/19/19 15:45 36.7 05/19/19 15:16 100 Nasal Cannula 3.50 05/19/19 15:00 130 26 High Flow N/C 3.00 05/19/19 14:00 101 17 98/62 (74) High Flow N/C 3.00 05/19/19 13:15 113 24 103/51 (68) High Flow N/C 3.00 05/19/19 12:34 89 05/19/19 12:15 High Flow N/C 4.00 05/19/19 12:00 92 27 109/85 (93) 98 High Flow N/C 3.00 05/19/19 12:00 36.8 05/19/19 11:00 109 23 96/66 (76) 98 High Flow N/C 3.00 05/19/19 10:00 113 20 106/63 (77) 96 High Flow N/C 3.00 05/19/19 09:00 114 15 88/57 (67) 95 High Flow N/C 3.00 05/19/19 08:15 High Flow N/C 4.00 05/19/19 08:00 112 13 117/68 (84) High Flow N/C 3.00 05/19/19 08:00 36.1 05/19/19 07:00 88 25 126/84 (98) 98 High Flow N/C 3.00 05/19/19 07:00 91 05/19/19 06:49 Nasal Cannula 3.50 05/19/19 06:48 100 Nasal Cannula 4.00 05/19/19 06:00 93 26 115/84 (94) 98 High Flow N/C 3.00 I & O 05/20/19 07:00 Intake Total 3360 ml Output Total 3825 ml Balance -465 ml Height & Weight Height: '" Weight: lbs. oz. kg; 48.00 BMI Method: General Appearance: No Apparent Distress, Chronically ill HEENT: PERRL/EOMI Neck: Non Tender, Supple Respiratory: Chest Non Tender, No Accessory Muscle Use, No Respiratory Distress Cardiovascular: Regular Rate, Rhythm Capillary Refill: Less Than 3 Seconds Peripheral Pulses: 2+ Dorsalis Pedis (R), 2+ Left Dors-Pedis (L), 2+ Radial Pulses (R), 2+ Radial Pulses (L) Gastrointestinal: soft, tenderness (Right lower qudrant of abdominal wall with subcutaneous mass( hematoma)) Extremity: No Calf Tenderness Neurologic/Psychiatric: Alert, Oriented x3 Skin: Warm/Dry, Ecchymosis (across chest with extention into L axilla; across lower abdomen; purple in color with some green/yellow changes ), Pallor Lymphatic: No Adenopathy Results Lab Laboratory Tests 05/18/19 11:42 05/18/19 18:00 05/19/19 00:01 05/19/19 04:15 05/19/19 14:20 05/19/19 23:41 05/20/19 03:51 Assessment/Plan Assessment/Plan Acute on chronic respiratory failure -PT is approved for home vent to mask. DME will set it up upon discharge. -DuoNeb q 4 -solumedrol 40 Q 12 - Merrem Hypokalemia, hypophos -Replace Anemia -Pt was transfused another unit of blood last night -D/C Lovenox -S/P transfuse3 units PRBC -Repeat Hb pending -Surgery following rectus sheath hematoma -Lovenox on hold -Surgery following Atelectasis - -Productive cough of Rodríguez sputum -Repeat Sputum culture- showe usual upper respiratory leatha Debility -PT/OT History of recurrent nonsustained ventricular tachycardia, history of syncope in the past. -Patient has an attempt for ICD placement and became severely hypoxemic during induction of sedation. Procedure was canceled. Pulmonary edema and bilateral pleural effusions -Lasix COPDAE -solumedrol -SVNs with duoneb Q 4 and add pulmicort BID CHFAE -acute on chronic left ventricular diastolic dysfunction -Lasix -Echo -Cardiology following -Cardiac catheterization was done in December 2018 in [facility] and reported having nonobstructive coronary artery disease Obesity OHS -Will benefit from home vent to mask Anemia -Monitor -Check occult stool Paroxysmal atrial fibrillation Peripheral edema, improving slowly Hypertension Hyperlipidemia Morbid obesity PANKAJ VALENTINE DO May 20, 2019 05:23
[2019-05-20] MEDS: CATHETER FLUSH 10 ML SYR IV SCH ×3 (05:32→21:42)
[2019-05-20] MEDS: inSUlin ASPART (NovoLOG) 1 UNIT/0.01 ML (CHARGE PER UNIT) SC SCH ×4 (05:32→20:18)
[2019-05-20] MEDS: DILTIAZEM 30 MG (CARDIZEM) TAB PO SCH ×4 (05:39→23:20)
[2019-05-20] MEDS: FUROSEMIDE 40 MG/4 ML INJ (LASIX) IVP SCH ×2 (05:39→18:07)
[2019-05-20 05:54] LABS: HEMOGLOBIN 7.8 G/DL (11.5-16.0)
--- NOTE | 2019-05-20 07:13 | Diagnostic Imaging Report ---
Indication: Dyspnea. Comparison: 05/19/2019. Discussion: Single portable upright view of the chest was obtained. Cardiomegaly is stable. Left-sided pacemaker stable. Mild interstitial thickening is stable to slightly decreased. This could represent mild pulmonary edema. No new consolidation. No pleural fluid or pneumothorax. No osseous abnormality. Impression: 1. Cardiomegaly with slightly decreased interstitial thickening. Dictated by: Dictated on workstation # [id number]
[2019-05-20] MEDS: RT-ALBUTEROL/IPRATROPIUM 3 ML (DUONEB) VIAL INH SCH ×5 (07:17→21:30)
--- NOTE | 2019-05-20 07:33 | Progress Note - Surgery ---
ZOIE SANTOS,MED STUDENT 05/20/19 0733: Subjective Date Seen by a Provider: May 20, 2019 Time Seen by a Provider: 07:10 Subjective/Events-last exam Patient seen and examined. Patient says that she is feeling better and asked if I could bring her breakfast because she was hungry. She wants to know where all the blood is going and why her hemiglobin drops in the evening. When asked how PT is going she says that she gets worried that the "little ladies won't be able to support me." The importance of getting up and moving around with PT was discussed with patient and she appeared to understand. Review of Systems General: No Chills, No Fatigue; Appetite HEENT: No Head Aches Pulmonary: No Dyspnea, No Cough Cardiovascular: No: Chest Pain, Palpitations, Orthopnea Gastrointestinal: Abdominal Pain; No: Nausea, Vomiting Objective Exam Vital Signs Date Time Temp Pulse Resp B/P (MAP) Pulse Ox O2 Delivery O2 Flow Rate FiO2 05/20/19 06:00 90 27 122/77 (92) 97 Nasal Cannula 4.00 05/20/19 05:00 77 23 112/71 (85) 97 Nasal Cannula 4.00 05/20/19 04:00 90 23 123/61 (81) 95 Nasal Cannula 4.00 05/20/19 03:44 36.2 82 16 112/76 96 High Flow N/C 4.00 05/20/19 03:43 36.2 05/20/19 03:25 High Flow N/C 4.00 05/20/19 03:00 84 20 113/73 (86) 96 Nasal Cannula 4.00 05/20/19 02:57 93 Nasal Cannula 4.00 05/20/19 02:00 76 25 104/67 (79) 93 Nasal Cannula 4.00 05/20/19 01:24 36.3 81 16 106/64 93 High Flow N/C 4.00 05/20/19 01:10 36.5 81 18 100/59 High Flow N/C 4.00 05/20/19 01:00 82 05/20/19 01:00 74 25 100/59 (73) 95 Nasal Cannula 4.00 05/20/19 00:00 106 24 110/72 (85) 94 Nasal Cannula 4.00 05/19/19 23:46 High Flow N/C 4.00 05/19/19 23:45 36.5 05/19/19 23:00 106 26 97/53 (68) 93 Nasal Cannula 4.00 05/19/19 22:32 93 Nasal Cannula 4.00 05/19/19 22:00 78 20 122/73 (89) 95 Nasal Cannula 4.00 05/19/19 21:00 87 15 123/72 (89) 97 Nasal Cannula 4.00 05/19/19 20:00 112 17 116/77 (90) 97 Nasal Cannula 4.00 05/19/19 20:00 High Flow N/C 4.00 05/19/19 20:00 36.7 05/19/19 19:00 108 05/19/19 19:00 108 19 108/57 (74) 96 Nasal Cannula 4.00 05/19/19 18:35 93 Nasal Cannula 4.00 05/19/19 18:00 102 15 118/71 (87) 91 High Flow N/C 3.00 05/19/19 17:00 108 18 101/75 (84) 93 High Flow N/C 3.00 05/19/19 16:15 High Flow N/C 4.00 05/19/19 16:00 103 16 High Flow N/C 3.00 05/19/19 15:45 36.7 05/19/19 15:16 100 Nasal Cannula 3.50 05/19/19 15:00 130 26 High Flow N/C 3.00 05/19/19 14:00 101 17 98/62 (74) High Flow N/C 3.00 05/19/19 13:15 113 24 103/51 (68) High Flow N/C 3.00 05/19/19 12:34 89 05/19/19 12:15 High Flow N/C 4.00 05/19/19 12:00 92 27 109/85 (93) 98 High Flow N/C 3.00 05/19/19 12:00 36.8 05/19/19 11:00 109 23 96/66 (76) 98 High Flow N/C 3.00 05/19/19 10:00 113 20 106/63 (77) 96 High Flow N/C 3.00 05/19/19 09:00 114 15 88/57 (67) 95 High Flow N/C 3.00 05/19/19 08:15 High Flow N/C 4.00 05/19/19 08:00 112 13 117/68 (84) High Flow N/C 3.00 05/19/19 08:00 36.1 I & O 05/20/19 07:00 Intake Total 3435 ml Output Total 4075 ml Balance -640 ml Capillary Refill : Less Than 3 SecondsLess Than 3 Seconds General Appearance: No Apparent Distress, Chronically ill, Obese HEENT: PERRL/EOMI Neck: Non Tender, Supple Respiratory: Chest Non Tender, No Accessory Muscle Use, No Respiratory Distress Cardiovascular: Irregularly Irregular, Tachycardia Peripheral Pulses: 2+ Dorsalis Pedis (R), 2+ Left Dors-Pedis (L), 2+ Radial Pulses (R), 2+ Radial Pulses (L) Gastrointestinal: normal bowel sounds, soft, no pulsatile mass, tenderness (Right lower qudrant of abdominal wall with subcutaneous mass( hematoma)) Extremity: No Calf Tenderness Neurologic/Psychiatric: Alert, Oriented x3 Skin: Warm/Dry, Ecchymosis (across chest with extention into L axilla; across lower abdomen; purple in color with some green/yellow changes ), Pallor Results Lab Laboratory Tests 05/19/19 11:05: Glucometer 261H 05/19/19 14:20: Hemoglobin 7.5L, Hematocrit 24L 05/19/19 15:44: Glucometer 212H 05/19/19 20:10: Glucometer 219H 05/19/19 23:41: Hemoglobin 6.3*L, Hematocrit 21L 05/20/19 03:51: Hemoglobin 7.8#L, Hematocrit 26L, White Blood Count 14.0H, Red Blood Count 2.71L , Mean Corpuscular Volume 94, Mean Corpuscular Hemoglobin 29, Mean Corpuscular Hemoglobin Concent 31L, Red Cell Distribution Width 17.1H, Platelet Count 146, Mean Platelet Volume 9.2, Neutrophils (%) (Auto) 76H, Lymphocytes (%) (Auto) 14, Monocytes (%) (Auto) 8, Eosinophils (%) (Auto) 2, Basophils (%) (Auto) 0, Neutrophils # (Auto) 10.7H, Lymphocytes # (Auto) 2.0, Monocytes # (Auto) 1.1H, Eosinophils # (Auto) 0.2, Basophils # (Auto) 0.0, Sodium Level 140, Potassium Level 3.5L, Chloride Level 100, Carbon Dioxide Level 28, Anion Gap 12, Blood Urea Nitrogen 23H, Creatinine 0.66, Estimat Glomerular Filtration Rate > 60, BUN/Creatinine Ratio 35, Glucose Level 170H, Calcium Level 6.8L, Corrected Calcium 7.7L, Phosphorus Level 3.1, Magnesium Level 1.7, Total Bilirubin 0.8, Aspartate Amino Transf (AST/SGOT) 12, Alanine Aminotransferase (ALT/SGPT) 15, Alkaline Phosphatase 47, Total Protein 4.4L, Albumin 2.9L 05/20/19 05:43: Hemoglobin 7.8L, Hematocrit 25L Microbiology 05/16/19 Blood Culture - Preliminary, Resulted No growth 05/09/19 Gram Stain - Final, Complete 05/09/19 Sputum Culture - Final, Complete Usual upper respiratory leatha Assessment/Plan Assessment/Plan Assessment/Plan anemia from acute blood loss likely from lovenox shot causing hematoma hemoglobin improved feel to 6.3 last night and required 1 unit of pRBC. Hbg is now 7.8 A-fib with RVR on Cardizem drip, hematoma right lower quadrant s/p recent pacemaker placement patient still with large hematoma should reabsorb over time continue to monitor for blood loss and transfuse prn no sugical intervention, and patient agrees with plan hold any anticoagulation Clinical Quality Measures DVT/VTE Risk/Contraindication: Risk Factor Score Per Nursin RFS Level Per Nursing on Admit: 4+=Very High KODY BOLES DO 05/20/19 1006: Subjective Subjective/Events-last exam abdominal pain controlled. drop in hgb. tolerating diet. no other complaints. denies n/v fever sweats chills or chest pain. Objective Exam General Appearance: No Apparent Distress, Chronically ill, Obese HEENT: PERRL/EOMI Neck: Non Tender, Supple Respiratory: Chest Non Tender, No Accessory Muscle Use, No Respiratory Distress Cardiovascular: Irregularly Irregular Gastrointestinal: normal bowel sounds, soft, tenderness (Right lower qudrant of abdominal wall with subcutaneous mass( hematoma)) Skin: Warm/Dry, Ecchymosis (across chest with extention into L axilla; across lower abdomen; purple in color with some green/yellow changes ), Pallor Lymphatic: No Adenopathy Assessment/Plan Assessment/Plan Assessment/Plan anemia from acute blood loss likely from lovenox shot causing hematoma hemoglobin follow transfuse prn A-fib with RVR on Cardizem drip, hematoma right lower quadrant s/p recent pacemaker placement patient still with large hematoma should reabsorb over time continue to monitor for blood loss and transfuse prn no sugical intervention hold any anticoagulation Supervisory-Addendum Brief Verification & Attestation Participated in pt care: history, MDM, physical Personally performed: exam, history, MDM, supervision of care Care discussed with: Medical Student Procedures: n/a Results interpretation: Verified all documentation Verification and Attestation of Medical Student E/M Service A medical student performed and documented this service in my presence. I reviewed and verified all information documented by the medical student and made modifications to such information, when appropriate. I personally performed the physical exam and medical decision making. Kody Boles, May 20, 2019,10:08 ZOIE SANTOS,MED STUDENT May 20, 2019 07:33 KODY BOLES DO May 20, 2019 10:06
--- NOTE | 2019-05-20 08:39 | NUR ---
PT HAD SMALL AMOUNT OF SOFT BROWN STOOL IN BED. CLEANED PATIENT AND ASSISTED TO BSC X 2 ASSIST. PT TOLERATED OK WITH INCREASE IN DYSPNEA THAT RESOLVED WITH REST. HR STABLE AND NOT ABOVE 110. CARDIZEM GTT TURNED DOWN TO 5MG/HR
[2019-05-20] MEDS: PANTOPRAZOLE 40 MG (PROTONIX) TAB PO SCH (08:52)
[2019-05-20] MEDS: LOPERAMIDE 2 MG (IMODIUM) TABLET PO PRN ×2 (08:52→18:38)
[2019-05-20] MEDS: CARVEDILOL 3.125 MG (COREG) TABLET PO SCH ×2 (08:52→20:18)
[2019-05-20] MEDS: DIGOXIN 0.25 MG (LANOXIN) TAB PO SCH (08:52)
[2019-05-20] MEDS: ASPIRIN E.C. 81 MG (ECOTRIN) TAB PO SCH (08:53)
[2019-05-20] MEDS ORDERED: KCL 20 MEQ TAB (K-DUR) PO ONE (09:00)
[2019-05-20] MEDS: RT-BUDESONIDE NEBS 0.5 MG/2ML (PULMICORT) AMP INH SCH ×2 (10:40→18:52)
--- NOTE | 2019-05-20 12:32 | Progress Note - Hospitalist ---
Subjective HPI/CC On Admission Date Seen by Provider: May 20, 2019 Time Seen by Provider: 11:15 Chief complaint: Shortness of breath with clinical decline requiring ICU transfer History of present illness: This is a 68-year-old white female who has a history of a recent hospital stay in [place] with preparation of placing a defibrillator but could not accomplish that due to instability and questionable discharge that was recommended on hospice but patient regardless presented to the ER with shortness of breath found to have florid congestive heart failure and work-up included cardiology management but when I saw her at the bedside she appeared to be abreu ashen and pale becoming hypoxic and patient required ICU transfer just based on clinical status decompensation. Patient was found to have respiratory acidosis with hypercapnia requiring BiPAP and may ultimately require intubation. Patient appears to be extremely chronically ill and unsure of her ejection fraction but it appears to be very low with a very very poor prognosis. Subjective/Events-last exam Patient stable Off Cardizem drip now and HR 85 Required 4th unit of blood No pain is reported Very debilitated needs NHP Review of Systems General: Fatigue Pulmonary: Dyspnea Objective Exam Vital Signs Vital Signs Date Time Temp Pulse Resp B/P (MAP) Pulse Ox O2 Delivery O2 Flow Rate FiO2 05/20/19 15:00 104 18 129/71 (90) Nasal Cannula 4.00 05/20/19 14:39 95 05/20/19 12:00 36.0 05/18/19 10:22 32 Capillary Refill : Less Than 3 SecondsLess Than 3 Seconds General Appearance: No Apparent Distress, WD/WN, Chronically ill, Obese Respiratory: Lungs Clear Cardiovascular: Regular Rate, Rhythm Neurologic/Psychiatric: Alert, Oriented x3, No Motor/Sensory Deficits, Normal Mood/Affect Results/Procedures Lab Laboratory Tests 05/19/19 23:41 05/20/19 03:51 05/20/19 05:43 Patient resulted labs reviewed. Assessment/Plan Assessment and Plan Assess & Plan/Chief Complaint Assessment: Abdominal hematoma s/p 4 units of blood not an OAC candidate now due to life threatening bleed AECHF AF ICD placement AF w/RVR now resolved Plan: Needs NHP at [place] CHF monitoring Diagnosis/Problems Diagnosis/Problems (1) Abdominal wall hematoma Clinical Quality Measures DVT/VTE Risk/Contraindication: Risk Factor Score Per Nursin RFS Level Per Nursing on Admit: 4+=Very High YANET DAS DO May 20, 2019 12:32
--- NOTE | 2019-05-20 16:07 | Cardiology Progress Note ---
Cardiology SOAP Progress Note Subjective: Mild shortness of breath. No chest pain. Objective: I&O/Vital Signs 05/20/19 05/20/19 05/20/19 05/20/19 05:00 06:00 07:00 07:00 Pulse 77 90 123 101 Resp 23 27 21 B/P (MAP) 112/71 (85) 122/77 (92) 113/90 (98) Pulse Ox 97 97 98 O2 Delivery Nasal Cannula Nasal Cannula Nasal Cannula O2 Flow Rate 4.00 4.00 4.00 05/20/19 05/20/19 05/20/19 05/20/19 08:00 08:15 08:15 09:00 Temp 36.6 Pulse 92 91 Resp 28 16 B/P (MAP) 115/82 (93) 114/64 (81) Pulse Ox 96 O2 Delivery Nasal Cannula High Flow N/C Nasal Cannula O2 Flow Rate 4.00 4.00 4.00 05/20/19 05/20/19 05/20/19 05/20/19 10:00 10:40 11:00 12:00 Temp 36.0 Pulse 85 82 Resp 13 21 B/P (MAP) 91/55 (67) 98/63 (75) Pulse Ox 97 99 97 O2 Delivery Nasal Cannula Nasal Cannula Nasal Cannula O2 Flow Rate 4.00 4.00 4.00 05/20/19 05/20/19 05/20/19 05/20/19 12:00 12:00 13:00 13:00 Pulse 106 85 81 Resp 13 14 B/P (MAP) 105/86 (92) 131/73 (92) Pulse Ox 98 O2 Delivery Nasal Cannula High Flow N/C Nasal Cannula O2 Flow Rate 4.00 4.00 4.00 05/20/19 05/20/19 05/20/19 14:00 14:39 15:00 Pulse 130 104 Resp 23 18 B/P (MAP) 129/71 (90) Pulse Ox 95 O2 Delivery Nasal Cannula Nasal Cannula Nasal Cannula O2 Flow Rate 4.00 4.00 4.00 05/20/19 00:00 Intake Total 1040 ml Output Total 2175 ml Balance -1135 ml Bruising: large amount of bruising Constitutional: appears stated age, AAO x 3; No apparent distress; well-devel oped, well-nourished Respiratory: chest is bilaterally symmetric, lungs clear to auscultation Cardiovascular: irregularly irregular, S1 and S2, other (significant bruising left upper chest.) Gastrointestional: soft, distended, audible bowel sounds; No spleenomegaly Extremities: normal range of motion, non-tender, normal inspection, pedal edema; No clubbing, No cyanosis, No significant edema Neurologic/Psychiatric: no motor/sensory deficits, alert, normal mood/affect, oriented x 3 Skin: normal color, warm/dry; No rash, No ulcerations Results/Procedures: Labs Laboratory Tests 05/19/19 20:10: Glucometer 219H 05/19/19 23:41: Hemoglobin 6.3*L, Hematocrit 21L 05/20/19 03:51: Hemoglobin 7.8#L, Hematocrit 26L, White Blood Count 14.0H, Red Blood Count 2.71L , Mean Corpuscular Volume 94, Mean Corpuscular Hemoglobin 29, Mean Corpuscular Hemoglobin Concent 31L, Red Cell Distribution Width 17.1H, Platelet Count 146, Mean Platelet Volume 9.2, Neutrophils (%) (Auto) 76H, Lymphocytes (%) (Auto) 14, Monocytes (%) (Auto) 8, Eosinophils (%) (Auto) 2, Basophils (%) (Auto) 0, Neutrophils # (Auto) 10.7H, Lymphocytes # (Auto) 2.0, Monocytes # (Auto) 1.1H, Eosinophils # (Auto) 0.2, Basophils # (Auto) 0.0, Sodium Level 140, Potassium Level 3.5L, Chloride Level 100, Carbon Dioxide Level 28, Anion Gap 12, Blood Urea Nitrogen 23H, Creatinine 0.66, Estimat Glomerular Filtration Rate > 60, BUN/Creatinine Ratio 35, Glucose Level 170H, Calcium Level 6.8L, Corrected Calcium 7.7L, Phosphorus Level 3.1, Magnesium Level 1.7, Total Bilirubin 0.8, Aspartate Amino Transf (AST/SGOT) 12, Alanine Aminotransferase (ALT/SGPT) 15, Alkaline Phosphatase 47, Total Protein 4.4L, Albumin 2.9L 05/20/19 05:43: Hemoglobin 7.8L, Hematocrit 25L 05/20/19 11:28: Glucometer 161H 05/20/19 15:45: Glucometer 190H Microbiology 05/16/19 Blood Culture - Preliminary, Resulted No growth 05/09/19 Gram Stain - Final, Complete 05/09/19 Sputum Culture - Final, Complete Usual upper respiratory leatha A/P: Assessment/Dx: Numerous episodes of sustained VT, Syncope, Idiopathic VT, PAF Plan: Numerous episodes of sustained VT on ILR interrogation with duration > 30 seconds, working diagnosis of idiopathic VT. Echocardiogram done 04/2019 showed normal LV function. Negative Cath in 12/2018. Dual-chamber ICD placed on 05/09/2019. Implantable loop recorder was removed as well. Patient tolerated procedure well and did not have any complication. Postprocedure chest x-ray did not show any pneumothorax. Device interrogation was within normal limits. Antibiotic course completed. Significant bruising noted in the left upper extremity and the left upper chest as well as the groin. Likely pocket hematoma as well. Patient was on high-dose Lovenox which has been changed to DVT prophylaxis dose on 05/15/2019. No further bleeding. Patient received transfusion due to bleeding/anemia. Syncope, likely secondary to sustained VT. Idiopathic VT, on verapamil. PAF, oral anticoagulation therapy contraindicated due to significant bleeding and anemia. Cardizem for rate control. Can add digoxin. Severe obstructive and restrictive lung disease, Defer to Dr. Hull and the primary team. Anemia, significant blood loss, have bruising over her chest, abdomen and her arms, received blood transfusion, currently off Lovenox. Continue to monitor Paroxysmal atrial fibrillation, back in atrial fibrillation with rapid ventricular response, borderline hypotensive on Cardizem drip, cannot take anticoagulation at this time, heart rate is better. Continue to monitor Debility, generalized weakness, PT/OT on case High risk of stroke, pacemaker site and left arm has significant bruising, the dressing over the pacemaker is soaked with blood, there is a slow drop in H&H. Congestive heart failure, acute on chronic left ventricular diastolic dysfuncti on, hypertensive heart disease. Continue to monitor Cardiac catheterization was done in December 2018 in [facility] and reported having nonobstructive coronary artery disease Paroxysmal atrial fibrillation, had history of recurrent falls with severe consequences, she was not considered a candidate for oral anticoagulation, continue with physical therapy for strengthening and improving gait Type II myocardial infarction, probably secondary to hypoxemia, mild elevation in troponin, had a cardiac catheterization on January 11, 2019 in [facility] and reported normal coronaries. Continue to monitor Peripheral edema, improving slowly Hypertension, monitor blood pressure Hyperlipidemia, monitor lipids Morbid obesity Thank you for your consultation. Please call me if you have any questions. John Ward MD, FACP, FACC, FSCAI, FHRS, CCDS Interventional Cardiology Cardiac Electrophysiology Vascular Medicine and Endovascular Interventions Winston WARD MD May 20, 2019 16:07
[2019-05-20] MEDS: DILTIAZEM IV FOR DRIP 125 MG in NS (IVPB) 100 ML IV SCH (17:37)
[2019-05-20 18:07] LABS: HEMOGLOBIN 8.5 G/DL (11.5-16.0)
[2019-05-21] VITALS (12 sets, daily range): BP systolic 92–131; BP diastolic 52–105
[2019-05-21] MEDS: MEROPENEM 500 MG in WATER (STERILE) FOR INJECTION 10 ML IV SCH ×4 (01:46→22:23)
[2019-05-21] MEDS: RT-ALBUTEROL/IPRATROPIUM 3 ML (DUONEB) VIAL INH SCH ×6 (02:17→23:26)
[2019-05-21] MEDS: LOPERAMIDE 2 MG (IMODIUM) TABLET PO PRN (02:58)
[2019-05-21 03:52] LABS: BASOPHILS % (AUTO) 0 % (0-10); EOSINOPHILS # (AUTO) 0.3 10^3/uL (0.0-0.3); EOSINOPHILS % (AUTO) 2 % (0-10); HEMATOCRIT 27 % (35-52); HEMOGLOBIN 8.2 G/DL (11.5-16.0); LYMPHOCYTES # (AUTO) 1.8 X 10^3 (1.0-4.0); LYMPHOCYTES % (AUTO) 14 % (12-44); MEAN CORPUSCULAR HEMOGLOBIN 29 PG (25-34); MEAN CORPUSCULAR HGB CONC 30 G/DL (32-36); MEAN CORPUSCULAR VOLUME 96 FL (80-99); MEAN PLATELET VOLUME 9.9 FL (7.4-10.4); MONOCYTES # (AUTO) 0.9 X 10^3 (0.0-1.0); MONOCYTES % (AUTO) 6 % (0-12); NEUTROPHILS # (AUTO) 10.2 X 10^3 (1.8-7.8); NEUTROPHILS % (AUTO) 77 % (42-75); PLATELET COUNT 147 10^3/uL (130-400); RED CELL DISTRIBUTION WIDTH 17.8 % (10.0-14.5); WHITE BLOOD COUNT 13.2 10^3/uL (4.3-11.0)
[2019-05-21 04:08] LABS: BUN/CREATININE RATIO 31; CALCIUM 7.3 MG/DL (8.5-10.1); CARBON DIOXIDE 30 MMOL/L (21-32); CHLORIDE 100 MMOL/L (98-107); CREATININE SERUM 0.65 MG/DL (0.60-1.30); GFR ESTIMATED > 60; GLUCOSE 158 MG/DL (70-105); MAGNESIUM 1.8 MG/DL (1.6-2.4); PHOSPHORUS 3.1 MG/DL (2.3-4.7); POTASSIUM 3.8 MMOL/L (3.6-5.0); SODIUM 141 MMOL/L (135-145)
[2019-05-21] MEDS: MAGNESIUM 1 GM/100 ML IVPB 100 ML IV SCH (05:21)
[2019-05-21] MEDS: POTASSIUM CL 10MEQ/50ML IVPB 50 ML IV SCH (05:21)
[2019-05-21] MEDS: KCL 20 MEQ TAB (K-DUR) PO SCH (05:22)
[2019-05-21] MEDS: inSUlin ASPART (NovoLOG) 1 UNIT/0.01 ML (CHARGE PER UNIT) SC SCH ×4 (05:32→22:24)
[2019-05-21] MEDS: DILTIAZEM 30 MG (CARDIZEM) TAB PO SCH ×3 (05:34→17:51)
[2019-05-21] MEDS: CATHETER FLUSH 10 ML SYR IV SCH ×3 (05:35→22:23)
--- NOTE | 2019-05-21 06:13 | Pulmonary Progress Note ---
Subjective Time Seen by a Provider: 06:13 Subjective/Events-last exam No complications noted. Sepsis Event Evaluation Height, Weight, BMI Height: '" Weight: lbs. oz. kg; 48.00 BMI Method: Exam Exam Vital Signs Date Time Temp Pulse Resp B/P (MAP) Pulse Ox O2 Delivery O2 Flow Rate FiO2 05/21/19 04:00 High Flow N/C 4.00 05/21/19 03:00 86 12 97/74 (82) 97 Nasal Cannula 5.00 05/21/19 02:17 98 Nasal Cannula 4.00 05/21/19 02:00 98 17 131/105 (114) 95 Nasal Cannula 5.00 05/21/19 01:00 60 05/21/19 01:00 73 25 119/76 (90) 99 Nasal Cannula 5.00 05/21/19 00:00 81 24 92/53 (66) 93 Nasal Cannula 5.00 05/21/19 00:00 High Flow N/C 4.00 05/20/19 23:00 87 26 113/77 (89) 93 Nasal Cannula 5.00 05/20/19 22:00 89 21 124/74 (91) 97 Nasal Cannula 5.00 05/20/19 21:00 87 23 126/69 (88) 97 Nasal Cannula 5.00 05/20/19 20:00 98 23 116/64 (81) 98 Nasal Cannula 5.00 05/20/19 20:00 High Flow N/C 4.00 05/20/19 20:00 36.7 05/20/19 19:00 122 17 122/76 (91) 91 Nasal Cannula 5.00 05/20/19 19:00 117 05/20/19 18:53 97 Nasal Cannula 4.00 05/20/19 18:00 125 16 159/108 (125) 94 Nasal Cannula 3.00 05/20/19 17:00 127 28 103/80 (88) 90 Nasal Cannula 4.00 05/20/19 16:14 High Flow N/C 4.00 05/20/19 16:00 126 32 74/56 (62) Nasal Cannula 4.00 05/20/19 16:00 36.4 05/20/19 15:00 104 18 129/71 (90) Nasal Cannula 4.00 05/20/19 14:39 95 Nasal Cannula 4.00 05/20/19 14:00 130 23 Nasal Cannula 4.00 05/20/19 13:00 81 14 131/73 (92) 98 Nasal Cannula 4.00 05/20/19 13:00 85 05/20/19 12:00 High Flow N/C 4.00 05/20/19 12:00 106 13 105/86 (92) Nasal Cannula 4.00 05/20/19 12:00 36.0 05/20/19 11:00 82 21 98/63 (75) 97 Nasal Cannula 4.00 05/20/19 10:40 99 Nasal Cannula 4.00 05/20/19 10:00 85 13 91/55 (67) 97 Nasal Cannula 4.00 05/20/19 09:00 91 16 114/64 (81) Nasal Cannula 4.00 05/20/19 08:15 36.6 05/20/19 08:15 High Flow N/C 4.00 05/20/19 08:00 92 28 115/82 (93) 96 Nasal Cannula 4.00 05/20/19 07:00 101 05/20/19 07:00 123 21 113/90 (98) 98 Nasal Cannula 4.00 I & O 05/21/19 07:00 Intake Total 2560 ml Output Total 4155 ml Balance -1595 ml Height & Weight Height: '" Weight: lbs. oz. kg; 48.00 BMI Method: General Appearance: No Apparent Distress, WD/WN, Chronically ill, Obese HEENT: PERRL/EOMI Neck: Non Tender, Supple Respiratory: Lungs Clear Cardiovascular: Regular Rate, Rhythm Capillary Refill: Less Than 3 Seconds Peripheral Pulses: 2+ Dorsalis Pedis (R), 2+ Left Dors-Pedis (L), 2+ Radial Pulses (R), 2+ Radial Pulses (L) Gastrointestinal: normal bowel sounds, soft, tenderness (Right lower qudrant of abdominal wall with subcutaneous mass( hematoma)) Extremity: Pedal Edema Neurologic/Psychiatric: Alert, Oriented x3, No Motor/Sensory Deficits, Normal Mood/Affect Skin: Warm/Dry, Ecchymosis (across chest with extention into L axilla; across lower abdomen; purple in color with some green/yellow changes ), Pallor Lymphatic: No Adenopathy Results Lab Laboratory Tests 05/19/19 14:20 05/19/19 23:41 05/20/19 03:51 05/20/19 05:43 05/20/19 18:00 05/21/19 03:30 Assessment/Plan Assessment/Plan Acute on chronic respiratory failure -PT is approved for home vent to mask. DME will set it up upon discharge. -DuoNeb q 4 - Merrem Anemia -Pt was transfused another unit of blood last night -D/C Lovenox -S/P transfuse3 units PRBC -Surgery following rectus sheath hematoma -Lovenox on hold -Surgery following Atelectasis - -Productive cough of Rodríguez sputum -Repeat Sputum culture- showe usual upper respiratory leatha Debility -PT/OT History of recurrent nonsustained ventricular tachycardia, history of syncope in the past. -Patient has an attempt for ICD placement and became severely hypoxemic during induction of sedation. Procedure was canceled. Pulmonary edema and bilateral pleural effusions -Lasix COPDAE -solumedrol -SVNs with duoneb Q 4 and add pulmicort BID CHFAE -acute on chronic left ventricular diastolic dysfunction -Lasix -Echo -Cardiology following -Cardiac catheterization was done in December 2018 in [facility] and reported having nonobstructive coronary artery disease Obesity OHS -Will benefit from home vent to mask Anemia -Monitor -Check occult stool Paroxysmal atrial fibrillation Peripheral edema, improving slowly Hypertension Hyperlipidemia Morbid obesity PANKAJ VLAENTINE DO May 21, 2019 06:13
--- NOTE | 2019-05-21 06:39 | Diagnostic Imaging Report ---
Portable erect AP chest at 317 hours. INDICATION: Dyspnea. FINDINGS: The cardiomegaly and the mild pulmonary congestion seen on the prior exam of 05/20/2019 are again evident and no different. There is still small amount of atelectasis/infiltrate in the right lung base as well. This finding is unchanged. The mediastinum is not widened. The osseous structures are intact. The left-sided defibrillator device is stable. IMPRESSION: When compared to the previous study, there has been no adverse change. No new abnormality has developed. Dictated by: Dictated on workstation # [id number]
[2019-05-21] MEDS: FUROSEMIDE 40 MG/4 ML INJ (LASIX) IVP SCH ×2 (06:57→17:48)
--- NOTE | 2019-05-21 07:16 | Progress Note - Surgery ---
[employer] MED STUDENT 05/21/19 0716: Subjective Date Seen by a Provider: May 21, 2019 Time Seen by a Provider: 06:55 Subjective/Events-last exam Ms. Gonsales reports feeling better than yesterday, her LLQ pain has improved slightly and she feels somewhat less fatigued, although she reports being tired from being woken up frequently during the night. She puts ice on her hematoma, which she reports helps the pain and swelling. She reports that the swelling in her hematoma has gone down slightly. She has been feeling colder than normal, believes this is due to the ice, denies having chills. Reports having palpitations yesterday lasting seconds that she describes as fluttering, which she associates with her afib. Review of Systems General: No Chills; Fatigue HEENT: No Sinus Congestion, No Post Nasal Drip, No Sore Throat Pulmonary: Dyspnea; No Cough Cardiovascular: Palpitations; No: Chest Pain Gastrointestinal: Abdominal Pain; No: Diarrhea, Constipation, Melena Genitourinary: No Dysuria, No Hematuria Musculoskeletal: hand pain Neurological: No: Numbness, Other (denies paresthesias) Objective Exam Vital Signs Date Time Temp Pulse Resp B/P (MAP) Pulse Ox O2 Delivery O2 Flow Rate FiO2 05/21/19 06:00 84 23 130/79 (96) 98 Nasal Cannula 5.00 05/21/19 05:00 81 23 114/78 (90) 99 Nasal Cannula 5.00 05/21/19 04:00 High Flow N/C 4.00 05/21/19 04:00 79 14 125/78 (94) 99 Nasal Cannula 5.00 05/21/19 03:00 86 12 97/74 (82) 97 Nasal Cannula 5.00 05/21/19 02:17 98 Nasal Cannula 4.00 05/21/19 02:00 98 17 131/105 (114) 95 Nasal Cannula 5.00 05/21/19 01:00 60 05/21/19 01:00 73 25 119/76 (90) 99 Nasal Cannula 5.00 05/21/19 00:00 81 24 92/53 (66) 93 Nasal Cannula 5.00 05/21/19 00:00 High Flow N/C 4.00 05/20/19 23:00 87 26 113/77 (89) 93 Nasal Cannula 5.00 05/20/19 22:00 89 21 124/74 (91) 97 Nasal Cannula 5.00 05/20/19 21:00 87 23 126/69 (88) 97 Nasal Cannula 5.00 05/20/19 20:00 98 23 116/64 (81) 98 Nasal Cannula 5.00 05/20/19 20:00 High Flow N/C 4.00 05/20/19 20:00 36.7 05/20/19 19:00 122 17 122/76 (91) 91 Nasal Cannula 5.00 05/20/19 19:00 117 05/20/19 18:53 97 Nasal Cannula 4.00 05/20/19 18:00 125 16 159/108 (125) 94 Nasal Cannula 3.00 05/20/19 17:00 127 28 103/80 (88) 90 Nasal Cannula 4.00 05/20/19 16:14 High Flow N/C 4.00 05/20/19 16:00 126 32 74/56 (62) Nasal Cannula 4.00 05/20/19 16:00 36.4 05/20/19 15:00 104 18 129/71 (90) Nasal Cannula 4.00 05/20/19 14:39 95 Nasal Cannula 4.00 05/20/19 14:00 130 23 Nasal Cannula 4.00 05/20/19 13:00 81 14 131/73 (92) 98 Nasal Cannula 4.00 05/20/19 13:00 85 05/20/19 12:00 High Flow N/C 4.00 05/20/19 12:00 106 13 105/86 (92) Nasal Cannula 4.00 05/20/19 12:00 36.0 05/20/19 11:00 82 21 98/63 (75) 97 Nasal Cannula 4.00 05/20/19 10:40 99 Nasal Cannula 4.00 05/20/19 10:00 85 13 91/55 (67) 97 Nasal Cannula 4.00 05/20/19 09:00 91 16 114/64 (81) Nasal Cannula 4.00 05/20/19 08:15 36.6 05/20/19 08:15 High Flow N/C 4.00 05/20/19 08:00 92 28 115/82 (93) 96 Nasal Cannula 4.00 I & O 05/21/19 07:00 Intake Total 2810 ml Output Total 4405 ml Balance -1595 ml Capillary Refill : Less Than 3 SecondsLess Than 3 Seconds General Appearance: No Apparent Distress, Chronically ill, Obese HEENT: PERRL/EOMI; No Pale Conjunctivae (L), No Pale Conjunctivae (R), No Scleral Icterus (L), No Scleral Icterus (R) Neck: Non Tender, Supple Respiratory: Lungs Clear, No Accessory Muscle Use, No Respiratory Distress, Decreased Breath Sounds Cardiovascular: No Murmur, Normal Peripheral Pulses Peripheral Pulses: 2+ Dorsalis Pedis (R), 2+ Left Dors-Pedis (L), 2+ Radial Pulses (R), 2+ Radial Pulses (L) Gastrointestinal: normal bowel sounds, soft, tenderness (RLQ tenderness to palpation, some RUQ tenderness as well) Extremity: Calf Tenderness (very mild tenderness to palpation reported by patient), Pedal Edema Neurologic/Psychiatric: Alert, Normal Mood/Affect Skin: Warm/Dry, Ecchymosis (across chest with extention into UE bilaterally; across lower abdomen; purple in color with some green/yellow changes ) Lymphatic: No Adenopathy Results Lab Laboratory Tests 05/20/19 11:28: Glucometer 161H 05/20/19 15:45: Glucometer 190H 05/20/19 18:00: Hemoglobin 8.5L, Hematocrit 28L 05/20/19 19:56: Glucometer 269H 05/21/19 03:30: White Blood Count 13.2H, Red Blood Count 2.82L, Hemoglobin 8.2L, Hematocrit 27L, Mean Corpuscular Volume 96, Mean Corpuscular Hemoglobin 29, Mean Corpuscular Hemoglobin Concent 30L, Red Cell Distribution Width 17.8H, Platelet Count 147, Mean Platelet Volume 9.9, Neutrophils (%) (Auto) 77H, Lymphocytes (%) (Auto) 14, Monocytes (%) (Auto) 6, Eosinophils (%) (Auto) 2, Basophils (%) (Auto) 0, Neutrophils # (Auto) 10.2H, Lymphocytes # (Auto) 1.8, Monocytes # (Auto) 0.9, Eosinophils # (Auto) 0.3, Basophils # (Auto) 0.0, Sodium Level 141, Potassium Level 3.8, Chloride Level 100, Carbon Dioxide Level 30, Anion Gap 11, Blood Urea Nitrogen 20H, Creatinine 0.65, Estimat Glomerular Filtration Rate > 60, BUN/Creatinine Ratio 31, Glucose Level 158H, Calcium Level 7.3L, Phosphorus Level 3.1, Magnesium Level 1.8 05/21/19 05:31: Glucometer 162H Microbiology 05/16/19 Blood Culture - Preliminary, Resulted No growth 05/09/19 Gram Stain - Final, Complete 05/09/19 Sputum Culture - Final, Complete Usual upper respiratory leatha Assessment/Plan Assessment/Plan Assessment/Plan Anemia RLQ hematoma likely from lovenox shot Afib w/ RVR s/p recent pacemaker placement Continue to monitor blood loss and transfuse prn. Hematomas should reabsorb over time, no surgical intervention indicated at this time. Continue to hold anticoagulation. Clinical Quality Measures DVT/VTE Risk/Contraindication: Risk Factor Score Per Nursin RFS Level Per Nursing on Admit: 4+=Very High PHAN BOLES DO 05/21/19 1233: Subjective Subjective/Events-last exam Patient feeling better this morning. Did not require transfusion of prbc. Hgb stable. She states the hematoma in rlq is feeling better. Pain minimal in hematoma area. Ice helps. No new complaints. Denies n/v fever sweats chills shortness of breath or chest pain at this time. Objective Exam General Appearance: No Apparent Distress, Chronically ill Neck: Non Tender, Supple Respiratory: Chest Non Tender, No Accessory Muscle Use, No Respiratory Distress Cardiovascular: Regular Rate, Rhythm Gastrointestinal: normal bowel sounds, soft, tenderness (Less RLQ tenderness to palpation, some RUQ tenderness as well) Extremity: Pedal Edema Neurologic/Psychiatric: Alert, Oriented x3, Normal Mood/Affect Skin: Warm/Dry, Ecchymosis (across chest with extention into UE bilaterally; ac ross lower abdomen; purple in color with some green/yellow changes ) Lymphatic: No Adenopathy Assessment/Plan Assessment/Plan Assessment/Plan Anemia RLQ hematoma rectus sheath -likely from lovenox shot Afib w/ RVR s/p recent pacemaker placement Hgb stable not requiring prbc transfusion- follow hgb rlq hematoma rectus sheath- will resolve on its own No surgcial intervention will sign off call iff needed. Supervisory-Addendum Brief Verification & Attestation Participated in pt care: history, MDM, physical Personally performed: exam, history, MDM, supervision of care Care discussed with: Medical Student Procedures: n/a Results interpretation: Verified all documentation Verification and Attestation of Medical Student E/M Service A medical student performed and documented this service in my presence. I reviewed and verified all information documented by the medical student and made modifications to such information, when appropriate. I personally performed the physical exam and medical decision making. Phan Boles, May 21, 2019,12:41 [facility] [employer] MED STUDENT May 21, 2019 07:16 PHAN BOLES DO May 21, 2019 12:33
--- NOTE | 2019-05-21 08:37 | NUR ---
Pt transferred to room 407. This RN received report from RISSA Woodall.
[2019-05-21] MEDS: RT-BUDESONIDE NEBS 0.5 MG/2ML (PULMICORT) AMP INH SCH ×2 (09:01→18:41)
[2019-05-21] MEDS: DIGOXIN 0.25 MG (LANOXIN) TAB PO SCH (10:21)
[2019-05-21] MEDS: ASPIRIN E.C. 81 MG (ECOTRIN) TAB PO SCH (10:21)
[2019-05-21] MEDS: PANTOPRAZOLE 40 MG (PROTONIX) TAB PO SCH (10:21)
[2019-05-21] MEDS: CARVEDILOL 3.125 MG (COREG) TABLET PO SCH ×2 (10:21→22:54)
--- NOTE | 2019-05-21 10:48 | Cardiology Progress Note ---
Cardiology SOAP Progress Note Subjective: Mild shortness of breath. Objective: I&O/Vital Signs 05/20/19 05/21/19 05/21/19 05/21/19 23:00 00:00 00:00 01:00 Pulse 87 81 73 Resp 26 24 25 B/P (MAP) 113/77 (89) 92/53 (66) 119/76 (90) Pulse Ox 93 93 99 O2 Delivery Nasal Cannula High Flow N/C Nasal Cannula Nasal Cannula O2 Flow Rate 5.00 4.00 5.00 5.00 05/21/19 05/21/19 05/21/19 05/21/19 01:00 02:00 02:17 03:00 Pulse 60 98 86 Resp 17 12 B/P (MAP) 131/105 (114) 97/74 (82) Pulse Ox 95 98 97 O2 Delivery Nasal Cannula Nasal Cannula Nasal Cannula O2 Flow Rate 5.00 4.00 5.00 05/21/19 05/21/19 05/21/19 05/21/19 04:00 04:00 05:00 06:00 Pulse 79 81 84 Resp 14 23 23 B/P (MAP) 125/78 (94) 114/78 (90) 130/79 (96) Pulse Ox 99 99 98 O2 Delivery Nasal Cannula High Flow N/C Nasal Cannula Nasal Cannula O2 Flow Rate 5.00 4.00 5.00 5.00 05/21/19 05/21/19 05/21/19 05/21/19 07:00 07:00 08:00 09:03 Pulse 80 90 Resp 12 B/P (MAP) 124/76 (92) Pulse Ox 88 97 O2 Delivery Nasal Cannula High Flow N/C Nasal Cannula O2 Flow Rate 5.00 4.00 4.00 05/21/19 09:08 Pulse Ox 97 O2 Delivery Nasal Cannula O2 Flow Rate 4.00 05/21/19 00:00 Intake Total 1600 ml Output Total 2105 ml Balance -505 ml Bruising: large amount of bruising Constitutional: appears stated age, AAO x 3; No apparent distress; well- developed, well-nourished Respiratory: chest is bilaterally symmetric, lungs clear to auscultation Cardiovascular: irregularly irregular, S1 and S2, other (significant bruising left upper chest.) Gastrointestional: soft, distended, audible bowel sounds; No spleenomegaly Extremities: normal range of motion, non-tender, normal inspection, pedal edema; No clubbing, No cyanosis, No significant edema Neurologic/Psychiatric: no motor/sensory deficits, alert, normal mood/affect, oriented x 3 Skin: normal color, warm/dry; No rash, No ulcerations Results/Procedures: Labs Laboratory Tests 05/20/19 11:28: Glucometer 161H 05/20/19 15:45: Glucometer 190H 05/20/19 18:00: Hemoglobin 8.5L, Hematocrit 28L 05/20/19 19:56: Glucometer 269H 05/21/19 03:30: White Blood Count 13.2H, Red Blood Count 2.82L, Hemoglobin 8.2L, Hematocrit 27L, Mean Corpuscular Volume 96, Mean Corpuscular Hemoglobin 29, Mean Corpuscular Hemoglobin Concent 30L, Red Cell Distribution Width 17.8H, Platelet Count 147, Mean Platelet Volume 9.9, Neutrophils (%) (Auto) 77H, Lymphocytes (%) (Auto) 14, Monocytes (%) (Auto) 6, Eosinophils (%) (Auto) 2, Basophils (%) (Auto) 0, Neutrophils # (Auto) 10.2H, Lymphocytes # (Auto) 1.8, Monocytes # (Auto) 0.9, Eosinophils # (Auto) 0.3, Basophils # (Auto) 0.0, Sodium Level 141, Potassium Level 3.8, Chloride Level 100, Carbon Dioxide Level 30, Anion Gap 11, Blood Urea Nitrogen 20H, Creatinine 0.65, Estimat Glomerular Filtration Rate > 60, BUN/Crea tinine Ratio 31, Glucose Level 158H, Calcium Level 7.3L, Phosphorus Level 3.1, Magnesium Level 1.8 05/21/19 05:31: Glucometer 162H Microbiology 05/16/19 Blood Culture - Preliminary, Resulted No growth 05/09/19 Gram Stain - Final, Complete 05/09/19 Sputum Culture - Final, Complete Usual upper respiratory leatha A/P: Assessment/Dx: Numerous episodes of sustained VT, Syncope, Idiopathic VT, PAF Plan: Numerous episodes of sustained VT on ILR interrogation with duration > 30 seconds, working diagnosis of idiopathic VT. Echocardiogram done 04/2019 showed normal LV function. Negative Cath in 12/2018. Dual-chamber ICD placed on 05/09/2019. Implantable loop recorder was removed as well. Patient tolerated procedure well and did not have any complication. Postprocedure chest x-ray did not show any pneumothorax. Device interrogation was within normal limits. Antibiotic course completed. Significant bruising noted in the left upper extremity and the left upper chest as well as the groin. Likely pocket hematoma as well. Patient was on high-dose Lovenox which has been changed to DVT prophylaxis dose on 05/15/2019. No further bleeding. Patient received transfusion due to bleeding/anemia. Syncope, likely secondary to sustained VT. Idiopathic VT, on verapamil. PAF, oral anticoagulation therapy contraindicated due to significant bleeding and anemia. Cardizem for rate control. Can add digoxin. Severe obstructive and restrictive lung disease, Defer to Dr. Hull and the primary team. Anemia, significant blood loss, have bruising over her chest, abdomen and her arms, received blood transfusion, currently off Lovenox. Continue to monitor Paroxysmal atrial fibrillation, controlled ventricular rate, by mouth Cardizem. Cannot take anticoagulation at this time, heart rate is better. Continue to monitor Debility, generalized weakness, PT/OT on case High risk of stroke, pacemaker site and left arm has significant bruising, the bruising is getting better. Congestive heart failure, acute on chronic left ventricular diastolic dysfunction, hypertensive heart disease. Continue to monitor Cardiac catheterization was done in December 2018 in [facility] and reported having nonobstructive coronary artery disease Paroxysmal atrial fibrillation, had history of recurrent falls with severe consequences, she was not considered a candidate for oral anticoagulation, continue with physical therapy for strengthening and improving gait Type II myocardial infarction, probably secondary to hypoxemia, mild elevation in troponin, had a cardiac catheterization on January 11, 2019 in [facility] and reported normal coronaries. Continue to monitor Peripheral edema, improving slowly Hypertension, monitor blood pressure Hyperlipidemia, monitor lipids Morbid obesity Thank you for your consultation. Please call me if you have any questions. John Ward MD, FACP, FACC, FSCAI, FHRS, CCDS Interventional Cardiology Cardiac Electrophysiology Vascular Medicine and Endovascular Interventions Winston WARD MD May 21, 2019 10:48
--- NOTE | 2019-05-21 12:03 | Progress Note - Hospitalist ---
Subjective HPI/CC On Admission Date Seen by Provider: May 21, 2019 Time Seen by Provider: 10:30 Chief complaint: Shortness of breath with clinical decline requiring ICU transfer History of present illness: This is a 68-year-old white female who has a history of a recent hospital stay in [place] with preparation of placing a defibrillator but could not accomplish that due to instability and questionable discharge that was recommended on hospice but patient regardless presented to the ER with shortness of breath found to have florid congestive heart failure and work-up included cardiology management but when I saw her at the bedside she appeared to be abreu ashen and pale becoming hypoxic and patient required ICU transfer just based on clinical status decompensation. Patient was found to have respiratory acidosis with hypercapnia requiring BiPAP and may ultimately require intubation. Patient appears to be extremely chronically ill and unsure of her ejection fraction but it appears to be very low with a very very poor prognosis. Subjective/Events-last exam Patient doing much better Appears to be much improved Nova catheter remains due to difficulty getting up out of bed Lower extremity edema much improved Heart rate is well controlled No longer an anticoagulation candidate due to life-threatening bleed 4 units of blood were required due to such severe hematoma blood loss Needs mcc Completely debilitated Review of Systems General: Fatigue Pulmonary: Dyspnea Gastrointestinal: Abdominal Pain Objective Exam Vital Signs Vital Signs Date Time Temp Pulse Resp B/P (MAP) Pulse Ox O2 Delivery O2 Flow Rate FiO2 05/21/19 16:07 36.4 72 20 101/52 (68) 98 High Flow N/C 4.50 05/18/19 10:22 32 Capillary Refill : Less Than 3 SecondsLess Than 3 Seconds General Appearance: No Apparent Distress, WD/WN, Chronically ill, Obese Respiratory: Chest Non Tender, Lungs Clear, Normal Breath Sounds, No Accessory Muscle Use, No Respiratory Distress Cardiovascular: Regular Rate, Rhythm, No Edema, No Gallop, No JVD, No Murmur, Normal Peripheral Pulses Neurologic/Psychiatric: Alert, Oriented x3, No Motor/Sensory Deficits, Normal Mood/Affect Results/Procedures Lab Laboratory Tests 05/20/19 18:00 05/21/19 03:30 Patient resulted labs reviewed. Assessment/Plan Assessment and Plan Assess & Plan/Chief Complaint Assessment: Abdominal hematoma s/p 4 units of blood not an OAC candidate now due to life threatening bleed AECHF AF ICD placement AF w/RVR now resolved Debility severe Plan: Needs NHP at DC CHF monitoring Diagnosis/Problems Diagnosis/Problems (1) Acute on chronic heart failure Status: Acute Qualifiers: Heart failure type: combined systolic and diastolic Qualified Codes: I50.43 - Acute on chronic combined systolic (congestive) and diastolic (congestive) heart failure (2) Transfusion of blood during current hospitalization (3) Poor prognosis (4) Abdominal wall hematoma (5) Debility Status: Acute (6) S/P ICD (internal cardiac defibrillator) procedure (7) Atrial fibrillation Status: Chronic Qualifiers: Atrial fibrillation type: paroxysmal Qualified Codes: I48.0 - Paroxysmal atrial fibrillation (8) Anasarca Status: Chronic (9) Acute and chronic respiratory failure Status: Acute (10) CO2 narcosis Clinical Quality Measures DVT/VTE Risk/Contraindication: Risk Factor Score Per Nursin RFS Level Per Nursing on Admit: 4+=Very High YANET DAS DO May 21, 2019 12:03
[2019-05-22] VITALS (7 sets, daily range): BP systolic 92–126; BP diastolic 62–72
[2019-05-22] MEDS: DILTIAZEM 30 MG (CARDIZEM) TAB PO SCH ×4 (00:29→18:46)
[2019-05-22] MEDS: RT-ALBUTEROL/IPRATROPIUM 3 ML (DUONEB) VIAL INH SCH ×6 (02:00→21:34)
[2019-05-22] MEDS: MEROPENEM 500 MG in WATER (STERILE) FOR INJECTION 10 ML IV SCH ×4 (05:07→23:34)
[2019-05-22] MEDS: CATHETER FLUSH 10 ML SYR IV SCH ×3 (05:07→23:36)
[2019-05-22 05:25] LABS: BASOPHILS % (AUTO) 0 % (0-10); EOSINOPHILS # (AUTO) 0.2 10^3/uL (0.0-0.3); EOSINOPHILS % (AUTO) 2 % (0-10); HEMATOCRIT 27 % (35-52); HEMOGLOBIN 7.9 G/DL (11.5-16.0); LYMPHOCYTES # (AUTO) 1.5 X 10^3 (1.0-4.0); LYMPHOCYTES % (AUTO) 13 % (12-44); MEAN CORPUSCULAR HEMOGLOBIN 29 PG (25-34); MEAN CORPUSCULAR HGB CONC 29 G/DL (32-36); MEAN CORPUSCULAR VOLUME 98 FL (80-99); MEAN PLATELET VOLUME 9.4 FL (7.4-10.4); MONOCYTES # (AUTO) 0.7 X 10^3 (0.0-1.0); MONOCYTES % (AUTO) 6 % (0-12); NEUTROPHILS # (AUTO) 9.1 X 10^3 (1.8-7.8); NEUTROPHILS % (AUTO) 79 % (42-75); PLATELET COUNT 129 10^3/uL (130-400); RED CELL DISTRIBUTION WIDTH 17.9 % (10.0-14.5); WHITE BLOOD COUNT 11.5 10^3/uL (4.3-11.0)
[2019-05-22 05:44] LABS: ALANINE AMINOTRANSFERASE 18 U/L (0-55); ALBUMIN 3.1 GM/DL (3.2-4.5); ALKALINE PHOSPHATASE 63 U/L (40-136); BILIRUBIN,TOTAL 0.7 MG/DL (0.1-1.0); BUN/CREATININE RATIO 30; CALCIUM 7.5 MG/DL (8.5-10.1); CARBON DIOXIDE 31 MMOL/L (21-32); CHLORIDE 98 MMOL/L (98-107); CREATININE SERUM 0.66 MG/DL (0.60-1.30); GFR ESTIMATED > 60; GLUCOSE 154 MG/DL (70-105); SODIUM 139 MMOL/L (135-145); TOTAL PROTEIN 4.9 GM/DL (6.4-8.2)
[2019-05-22] MEDS: inSUlin ASPART (NovoLOG) 1 UNIT/0.01 ML (CHARGE PER UNIT) SC SCH ×4 (05:50→21:39)
[2019-05-22] MEDS: KCL 20 MEQ TAB (K-DUR) PO SCH (06:14)
[2019-05-22] MEDS: FUROSEMIDE 40 MG/4 ML INJ (LASIX) IVP SCH ×2 (06:33→17:36)
[2019-05-22] MEDS: PANTOPRAZOLE 40 MG (PROTONIX) TAB PO SCH (09:22)
[2019-05-22] MEDS: DIGOXIN 0.25 MG (LANOXIN) TAB PO SCH (09:22)
[2019-05-22] MEDS: ASPIRIN E.C. 81 MG (ECOTRIN) TAB PO SCH (09:22)
[2019-05-22] MEDS: CARVEDILOL 3.125 MG (COREG) TABLET PO SCH ×2 (09:22→21:38)
--- NOTE | 2019-05-22 09:33 | Physical Therapy Daily Note ---
PT Daily Note-Current Subjective Patient agrees to PT. Exercises only. Declined ambulation. Pain Numeric Pain Scale: 0-No Pain Location: No Pain Reported Mental Status Patient Orientation: Normal For Age Attachments: Oxygen, Nova Catheter Transfers SCALE: Activities may be completed with or without assistive devices. 0-Qsklaxnjzl-gvcsnys completes the activity by him/herself with no assistance from a helper. 5-Set-up or Clean-up Assistance-helper sets up or cleans up; patient completes activity. [place] assists only prior to or following the activity. 4-Supervision or Touching Assistance-helper provides verbal cues and/or touching/steadying and/or contact guard assistance as patient completes activity. Assistance may be provided throughout the activity or intermittently. 3-Partial/Moderate Assistance-helper does LESS THAN HALF the effort. [place] lifts, holds or supports trunk or limbs, but provides less than half the effort. 2-Substantial/Maximal Assistance-helper does MORE THAN HALF the effort. [place] lifts or holds trunk or limbs and provides more than half the effort. 1-Soncsuhaj-efuccu does ALL the effort. Patient does none of the effort to complete the activity. Or, the assistance of 2 or more helpers is required for the patient to complete the activity. If activity was not attempted, code reason: 7-Patient Refused. 9-Not Applicable-not attempted and the patient did not perform the activity before the current illness, exacerbation or injury. 10-Not Attempted due to Environmental Limitations-(lack of equipment, weather restraints, etc.). 88-Not Attempted due to Medical Conditions or Safety Concerns. Sit to Stand (QC): 5 Toilet Transfer (QC): 5 Weight Bearing Right Lower Extremity: Right Weight Bearing/Tolerated Left Lower Extremity: Left Weight Bearing/Tolerated Gait Training Does the Patient Walk?: Yes Distance: 5' Gait Assistive Device: FWW functional Exercises Seated Therapy Exercises: Ankle pumps, Long arc quads, Hip flexion Seated Reps: 15 (2 sets) Assessment Patient tolerated treatment well and reports fatigue with minimal activity. PT to increase activity as tolerated by patient. PT Planer Chain Offbearer Goals Penitentiary Goals PT Penitentiary Goals Time Frame: May 26, 2019 Roll Left & Right (QC): 5 Sit to Lying (QC): 5 Lying-Sitting on Side/Bed(QC): 5 Sit to Stand (QC): 5 Chair/Ani-ot-Qudbe Xfer(QC): 5 Toilet Transfer (QC): 5 Car Transfer (QC): 5 Does the Patient Walk: Yes Walk 10 feet (QC): 5 Walk 50ft with 2 Turns (QC): 5 Walk 150 ft (QC): 5 Walking 10ft on Uneven Surface: 5 1 Step (curb) (QC): 9 4 Steps (QC): 9 12 Steps (QC): 9 Picking up an Object (QC): 88 Does the Pt use WC or Scooter?: No Type: N/A Type: N/A PT Plan Treatment/Plan Treatment Plan: Continue Plan of Care Treatment Plan: Bed Mobility, Education, Functional Activity Georges, Functional Strength, Gait, Safety, Therapeutic Exercise, Transfers Treatment Duration: May 26, 2019 Frequency: 6 times per week Estimated Hrs Per Day: .25 hour per day Patient and/or Family Agrees t: Yes Time/GCodes Time In: 912 Time Out: 924 Total Billed Treatment Time: 12 Total Billed Treatment 1 visit EX 12 min EDMOND STRICKLAND PT May 22, 2019 09:33
--- NOTE | 2019-05-22 09:59 | Occupational Ther Daily Note ---
OT Current Status-Daily Note Subjective Pt alert, sitting recliner. Pt agrees to therapy. No c/o pain at this time, pt stated that she didn't want to move much because she found her "comfy spot". Mental Status/Objective Patient Orientation: Person, Place, Time, Situation Attachments: Nova Catheter, IV, Oxygen ADL-Treatment Therapy Code Descriptions/Definitions Functional [place] Measure: 0=Not Assessed/NA 4=Minimal Assistance 1=Total Assistance 5=Supervision or Setup 2=Maximal Assistance 6=Modified [place] 3=Moderate Assistance 7=Complete IndependenceSCALE: Activities may be completed with or without assistive devices. 9-Rhnurbeuhk-onpkyyc completes the activity by him/herself with no assistance from a helper. 5-Set-up or Clean-up Assistance-helper sets up or cleans up; patient completes activity. [place] assists only prior to or following the activity. 4-Supervision or Touching Assistance-helper provides verbal cues and/or touching/steadying and/or contact guard assistance as patient completes activity. Assistance may be provided throughout the activity or intermittently. 3-Partial/Moderate Assistance-helper does LESS THAN HALF the effort. [place] lifts, holds or supports trunk or limbs, but provides less than half the effort. 2-Substantial/Maximal Assistance-helper does MORE THAN HALF the effort. [place] lifts or holds trunk or limbs and provides more than half the effort. 6-Ujpzidemz-nsglph does ALL the effort. Patient does none of the effort to complete the activity. Or, the assistance of 2 or more helpers is required for the patient to complete the activity. If activity was not attempted, code reason: 7-Patient Refused. 9-Not Applicable-not attempted and the patient did not perform the activity before the current illness, exacerbation or injury. 10-Not Attempted due to Environmental Limitations-(lack of equipment, weather restraints, etc.). 88-Not Attempted due to Medical Conditions or Safety Concerns. Other Treatment RHODES had assisted PT earlier with pt completing toileting. Pt required assist to manipulate clothing and cleanse self. Pt unable to reach to feet to scratch top of foot. Pt agrees to complete UE exercises against gravity. Pt fatigued quickly and was not able to complete correct technique with UE's due to this. Pt did complete 2 sets of 10 reps and fatigued quickly. After therapy, pt sitting in recliner with call light/phone in reach. All needs met in room. OT Short Term Goals Short Term Goals Time Frame: May 18, 2019 Eatin Oral hygiene: 5 Toileting hygiene: 3 OT Prison Goals Dust Box Worker Goals Time Frame: May 25, 2019 Eating (QC): 5 Oral Hygiene (QC): 5 Toileting Hygiene (QC): 4 Shower/Bathe Self (QC): 9 (Pt. reports that daughter assists her with bathing/dressing.) Upper Body Dressing (QC): 9 Lower Body Dressing (QC): 9 On/Off Footwear (QC): 9 Additional Goals: 1-Demonstrate ADL Tasks, 2-Verbalize Understanding, 3- ImproveStrength/Georges 1=Demonstrate adherence to instructed precautions during ADL tasks. 2=Patient will verbalize/demonstrate understanding of assistive devices/modifications for ADL. 3=Patient will improve strength/tolerance for activity to enable patient to perform ADL's. OT Education/Plan Problem List/Assessment Assessment: Decreased Activ Tolerance, Decreased UE Strength, Impaired Funct Balance, Restricted Funct UE ROM Discharge Recommendations Plan/Recommendations: Continue POC Treatment Plan/Plan of Care Patient would benefit from OT for education, treatment and training to promote independence in ADL's, mobility, safety and/or upper extremity function for ADL's. Plan of Care: ADL Retraining, Functional Mobility, UE Funct Exercise/Act Treatment Duration: May 25, 2019 Frequency: 5 times per week Estimated Hrs Per Day: .25 hour per day Agreement: Yes Rehab Potential: Guarded Time/GCodes Start Time: 09:32 Stop Time: 09:50 Total Time Billed (hr/min): 18 Billed Treatment Time 1 visit-EX 1 (18 min) UGO MARTIN May 22, 2019 09:59
[2019-05-22] MEDS: RT-BUDESONIDE NEBS 0.5 MG/2ML (PULMICORT) AMP INH SCH ×2 (11:40→21:34)
--- NOTE | 2019-05-22 12:40 | NUR ---
Pt sitting in recliner at bedside. States she is having a difficult day and feeling poorly. Offered empathic listening and encouraged pt to freely express her feelings. She requested that ask her nurse to assist her to the restroom. I reassured the pt and communicated request to RISSA Recio.
--- NOTE | 2019-05-22 14:57 | Progress Note ---
Subjective Subjective/Events-last exam Afebrile, states she is feeling okay. Pain is less than prior. Objective Exam Last Set of Vital Signs Vital Signs Date Time Temp Pulse Resp B/P (MAP) Pulse Ox O2 Delivery O2 Flow Rate FiO2 05/22/19 12:00 36.6 88 16 114/72 (86) 96 High Flow N/C 4.00 05/22/19 10:55 36 Capillary Refill : Less Than 3 SecondsLess Than 3 Seconds I&O Intake and Output 05/22/19 00:00 Intake Total 1980 ml Output Total 2551 ml Balance -571 ml Intake Oral 1980 ml Output Urine Total 2550 ml Stool Total 1 ml # Bowel Movements 2 General: Alert, No Acute Distress Lungs: Clear to Auscultation, Normal Air Movement Heart: Regular Rate, No Murmurs Abdomen: Other (large amount of lower abdominal purple bruising) Neuro: Normal Speech Psych/Mental Status: Mood NL Results/Procedures Lab Laboratory Tests 05/21/19 16:05: Glucometer 160H 05/21/19 20:21: Glucometer 271H 05/22/19 05:05: White Blood Count 11.5H, Red Blood Count 2.76L, Hemoglobin 7.9L, Hematocrit 27L, Mean Corpuscular Volume 98, Mean Corpuscular Hemoglobin 29, Mean Corpuscular Hemoglobin Concent 29L, Red Cell Distribution Width 17.9H, Platelet Count 129L, Mean Platelet Volume 9.4, Neutrophils (%) (Auto) 79H, Lymphocytes (%) (Auto) 13, Monocytes (%) (Auto) 6, Eosinophils (%) (Auto) 2, Basophils (%) (Auto) 0, Neutrophils # (Auto) 9.1H, Lymphocytes # (Auto) 1.5, Monocytes # (Auto) 0.7, Eosinophils # (Auto) 0.2, Basophils # (Auto) 0.0, Sodium Level 139, Potassium Level 4.0, Chloride Level 98, Carbon Dioxide Level 31, Anion Gap 10, Blood Urea Nitrogen 20H, Creatinine 0.66, Estimat Glomerular Filtration Rate > 60, BUN/Creatinine Ratio 30, Glucose Level 154H, Calcium Level 7.5L, Corrected Calcium 8.2L, Total Bilirubin 0.7, Aspartate Amino Transf (AST/SGOT) 16, Alanine Aminotransferase (ALT/SGPT) 18, Alkaline Phosphatase 63, Total Protein 4.9L, Albumin 3.1L 05/22/19 11:42: Glucometer 252H Microbiology 05/16/19 Blood Culture - Final, Complete No growth 05/09/19 Gram Stain - Final, Complete 05/09/19 Sputum Culture - Final, Complete Usual upper respiratory leatha Assessment/Plan Assessment/Plan (1) Acute and chronic respiratory failure Status: Acute Assessment & Plan: 05/08: On Vapotherm, will titrate as possible, MAT protocol 05/09: Patient will be intubated for procedure and will have transfer to ICU after procedure 05/10: Patient required prolonged intubation following ICD placement, Dr Hull managing vent, appreciate recommendations 05/11: Will titrate to High flow NC if tolerated, improving 05/12: At baseline 05/22 on 4 lpm supplemental oxygen (2) Acute on chronic heart failure Status: Acute Assessment & Plan: 05/08: Cardiology consulted and managing, appreciate recommendations Qualifiers: Qualified Codes: I50.43 - Acute on chronic combined systolic (congestive) and diastolic (congestive) heart failure (3) Anasarca Status: Chronic Assessment & Plan: 05/09: Lasix BID, continue to monitor renal function (4) Nonsustained ventricular tachycardia Status: Chronic Assessment & Plan: 05/08: Considering ICD placement during this admission 05/09: Plan for placement today 05/10: ICD successfully placed yesterday 05/22 appreciate Cardiology recommendations (5) Atrial fibrillation Status: Chronic Assessment & Plan: 05/08: Patient high fall risk with multiple falls and is not a good candidate for anticoagulation 05/22 cannot tolerate anticoagulation due to lifethreatening bleed Qualifiers: Qualified Codes: I48.0 - Paroxysmal atrial fibrillation (6) Volume overload Status: Acute Qualifiers: Qualified Codes: E87.70 - Fluid overload, unspecified (7) Debility Status: Acute Assessment & Plan: 05/22 may need nursing facility admit on d/c, Social work to discuss with family (8) Abdominal wall hematoma Assessment & Plan: 05/22 Appears to be improving, monitor hemoglobin closely, has required transfusions this admission. Surgery consulted, no intervention recommended. (9) DVT prophylaxis Status: Acute Assessment & Plan: No pharmacologic due to life threatening bleeding Clinical Quality Measures DVT/VTE Risk/Contraindication: Risk Factor Score Per Nursin RFS Level Per Nursing on Admit: 4+=Very High TERI LIGHT MD May 22, 2019 14:57
[2019-05-22 18:55] LABS: HEMOGLOBIN 8.7 G/DL (11.5-16.0)
--- NOTE | 2019-05-22 19:59 | Cardiology Progress Note ---
Cardiology SOAP Progress Note Subjective: Mild shortness of breath. Objective: I&O/Vital Signs 05/22/19 05/22/19 05/22/19 05/22/19 08:00 10:55 11:37 12:00 Temp 36.8 36.8 36.6 Pulse 77 90 88 Resp 18 16 B/P (MAP) 126/62 (83) 114/72 (86) Pulse Ox 92 98 96 96 O2 Delivery High Flow N/C Nasal Cannula High Flow N/C O2 Flow Rate 4.00 3.00 4.00 FiO2 36 05/22/19 05/22/19 05/22/19 15:56 16:00 19:48 Temp 37.0 36.5 Pulse 98 101 Resp 20 18 B/P (MAP) 104/67 (79) 102/62 (75) Pulse Ox 98 99 98 O2 Delivery Nasal Cannula High Flow N/C High Flow N/C O2 Flow Rate 3.00 3.00 3.00 05/22/19 00:00 Intake Total 1380 ml Output Total 2051 ml Balance -671 ml Bruising: large amount of bruising Constitutional: appears stated age, AAO x 3; No apparent distress; well- developed, well-nourished Respiratory: chest is bilaterally symmetric, lungs clear to auscultation Cardiovascular: irregularly irregular, S1 and S2, other (significant bruising left upper chest.) Gastrointestional: soft, distended, audible bowel sounds; No spleenomegaly Extremities: normal range of motion, non-tender, normal inspection, pedal edema; No clubbing, No cyanosis, No significant edema Neurologic/Psychiatric: no motor/sensory deficits, alert, normal mood/affect, oriented x 3 Skin: normal color, warm/dry; No rash, No ulcerations Results/Procedures: Labs Laboratory Tests 05/21/19 20:21: Glucometer 271H 05/22/19 05:05: White Blood Count 11.5H, Red Blood Count 2.76L, Hemoglobin 7.9L, Hematocrit 27L, Mean Corpuscular Volume 98, Mean Corpuscular Hemoglobin 29, Mean Corpuscular Hemoglobin Concent 29L, Red Cell Distribution Width 17.9H, Platelet Count 129L, Mean Platelet Volume 9.4, Neutrophils (%) (Auto) 79H, Lymphocytes (%) (Auto) 13, Monocytes (%) (Auto) 6, Eosinophils (%) (Auto) 2, Basophils (%) (Auto) 0, Neutrophils # (Auto) 9.1H, Lymphocytes # (Auto) 1.5, Monocytes # (Auto) 0.7, Eosinophils # (Auto) 0.2, Basophils # (Auto) 0.0, Sodium Level 139, Potassium Level 4.0, Chloride Level 98, Carbon Dioxide Level 31, Anion Gap 10, Blood Urea Nitrogen 20H, Creatinine 0.66, Estimat Glomerular Filtration Rate > 60, BUN/Creatinine Ratio 30, Glucose Level 154H, Calcium Level 7.5L, Corrected Calcium 8.2L, Total Bilirubin 0.7, Aspartate Amino Transf (AST/SGOT) 16, Alanine Aminotransferase (ALT/SGPT) 18, Alkaline Phosphatase 63, Total Protein 4.9L, Albumin 3.1L 05/22/19 11:42: Glucometer 252H 05/22/19 16:12: Glucometer 152H 05/22/19 18:45: Hemoglobin 8.7L, Hematocrit 29L Microbiology 05/16/19 Blood Culture - Final, Complete No growth 05/09/19 Gram Stain - Final, Complete 05/09/19 Sputum Culture - Final, Complete Usual upper respiratory leatha A/P: Assessment/Dx: Numerous episodes of sustained VT, Syncope, Idiopathic VT, PAF Plan: Numerous episodes of sustained VT on ILR interrogation with duration > 30 seconds, working diagnosis of idiopathic VT. Echocardiogram done 04/2019 showed normal LV function. Negative Cath in 12/2018. Dual-chamber ICD placed on 05/09/2019. Implantable loop recorder was removed as well. Patient tolerated procedure well and did not have any complication. Postprocedure chest x-ray did not show any pneumothorax. Device interrogation was within normal limits. Antibiotic course completed. Significant bruising noted in the left upper extremity and the left upper chest as well as the groin. Likely pocket hematoma as well. Patient was on high-dose Lovenox which has been changed to DVT prophylaxis dose on 05/15/2019. No furt her bleeding. Patient received transfusion due to bleeding/anemia. Syncope, likely secondary to sustained VT. Idiopathic VT, on verapamil. PAF, oral anticoagulation therapy contraindicated due to significant bleeding and anemia. Cardizem for rate control. Can add digoxin. Severe obstructive and restrictive lung disease, Defer to Dr. Hull and the primary team. Anemia, significant blood loss, have bruising over her chest, abdomen and her arms, received blood transfusion, currently off Lovenox. Continue to monitor Paroxysmal atrial fibrillation, controlled ventricular rate, by mouth Cardizem. Cannot take anticoagulation at this time, heart rate is better. Continue to monitor Debility, generalized weakness, PT/OT on case High risk of stroke, pacemaker site and left arm has significant bruising, the bruising is getting better. Congestive heart failure, acute on chronic left ventricular diastolic dysfunction, hypertensive heart disease. Continue to monitor Cardiac catheterization was done in December 2018 in [facility] and reported having nonobstructive coronary artery disease Paroxysmal atrial fibrillation, had history of recurrent falls with severe consequences, she was not considered a candidate for oral anticoagulation, continue with physical therapy for strengthening and improving gait Type II myocardial infarction, probably secondary to hypoxemia, mild elevation in troponin, had a cardiac catheterization on January 11, 2019 in [facility] and reported normal coronaries. Continue to monitor Peripheral edema, improving slowly Hypertension, monitor blood pressure Hyperlipidemia, monitor lipids Morbid obesity Thank you for your consultation. Please call me if you have any questions. John Ward MD, FACP, FACC, FSCAI, FHRS, CCDS Interventional Cardiology Cardiac Electrophysiology Vascular Medicine and Endovascular Interventions Winston WARD MD May 22, 2019 19:59
[2019-05-22] MEDS: HYDROcodone/APAP 7.5 MG/325 MG (LORTAB, LORCET PLUS) TABLET PO PRN (21:53)
--- NOTE | 2019-05-23 | NUR ---
ASSUMED CARE FOR THIS PATIENT AT THIS TIME. THIS RN AGREES WITH PREVIOUS RN'S ASSESSMENT AND REPORT RECEIVED FROM RISSA RUSS.
[2019-05-23] MEDS: DILTIAZEM 30 MG (CARDIZEM) TAB PO SCH ×4 (00:31→16:43)
[2019-05-23] MEDS: RT-ALBUTEROL/IPRATROPIUM 3 ML (DUONEB) VIAL INH SCH ×6 (01:49→21:59)
[2019-05-23] MEDS: MEROPENEM 500 MG in WATER (STERILE) FOR INJECTION 10 ML IV SCH (04:37)
[2019-05-23 04:57] VITALS: BP 93/64
[2019-05-23 05:26] LABS: BASOPHILS % (AUTO) 0 % (0-10); EOSINOPHILS # (AUTO) 0.2 10^3/uL (0.0-0.3); EOSINOPHILS % (AUTO) 2 % (0-10); HEMATOCRIT 27 % (35-52); LYMPHOCYTES # (AUTO) 1.1 X 10^3 (1.0-4.0); LYMPHOCYTES % (AUTO) 11 % (12-44); MEAN CORPUSCULAR HEMOGLOBIN 29 PG (25-34); MEAN CORPUSCULAR HGB CONC 30 G/DL (32-36); MEAN CORPUSCULAR VOLUME 98 FL (80-99); MEAN PLATELET VOLUME 10.2 FL (7.4-10.4); MONOCYTES # (AUTO) 0.6 X 10^3 (0.0-1.0); MONOCYTES % (AUTO) 7 % (0-12); NEUTROPHILS # (AUTO) 7.8 X 10^3 (1.8-7.8); NEUTROPHILS % (AUTO) 80 % (42-75); PLATELET COUNT 113 10^3/uL (130-400); RED CELL DISTRIBUTION WIDTH 17.9 % (10.0-14.5); WHITE BLOOD COUNT 9.7 10^3/uL (4.3-11.0)
[2019-05-23] MEDS: inSUlin ASPART (NovoLOG) 1 UNIT/0.01 ML (CHARGE PER UNIT) SC SCH ×4 (05:48→21:22)
[2019-05-23 05:50] LABS: BUN/CREATININE RATIO 31; CALCIUM 7.7 MG/DL (8.5-10.1); CARBON DIOXIDE 33 MMOL/L (21-32); CHLORIDE 96 MMOL/L (98-107); CREATININE SERUM 0.55 MG/DL (0.60-1.30); GFR ESTIMATED > 60; GLUCOSE 133 MG/DL (70-105); POTASSIUM 4.1 MMOL/L (3.6-5.0); SODIUM 139 MMOL/L (135-145)
[2019-05-23] MEDS: KCL 20 MEQ TAB (K-DUR) PO SCH (05:51)
[2019-05-23] MEDS: CATHETER FLUSH 10 ML SYR IV SCH ×2 (05:52→16:27)
[2019-05-23] MEDS: FUROSEMIDE 40 MG/4 ML INJ (LASIX) IVP SCH ×2 (06:19→17:08)
[2019-05-23] MEDS: RT-BUDESONIDE NEBS 0.5 MG/2ML (PULMICORT) AMP INH SCH ×2 (07:17→18:08)
[2019-05-23] MEDS: CARVEDILOL 3.125 MG (COREG) TABLET PO SCH ×2 (07:54→21:21)
[2019-05-23 08:00] VITALS: BP 97/64
[2019-05-23] MEDS: PANTOPRAZOLE 40 MG (PROTONIX) TAB PO SCH (08:02)
[2019-05-23] MEDS: ASPIRIN E.C. 81 MG (ECOTRIN) TAB PO SCH (08:02)
[2019-05-23] MEDS: DIGOXIN 0.25 MG (LANOXIN) TAB PO SCH (08:02)
--- NOTE | 2019-05-23 09:43 | Occupational Ther Daily Note ---
OT Current Status-Daily Note Subjective Pt alert, lying in bed. Pt agrees to therapy. C/o being stiff, no pain at this time. Mental Status/Objective Patient Orientation: Person, Place, Time, Situation Attachments: Nova Catheter, IV ADL-Treatment Pt set own meal up to eat and uses regular utensils. Mod A with HOB elevated for supine to EOB. SBA for sit <--> stand. CGA for transfer from EOB to BSC using FWW. Pt stated that since she had gained so much weight she is not able to cleanse self after BM. Pt has Nova catheter. After session, pt sitting on BSC with call light in reach. Nrsg notified of pt's position. All needs met in room. Therapy Code Descriptions/Definitions Functional [place] Measure: 0=Not Assessed/NA 4=Minimal Assistance 1=Total Assistance 5=Supervision or Setup 2=Maximal Assistance 6=Modified [place] 3=Moderate Assistance 7=Complete IndependenceSCALE: Activities may be completed with or without assistive devices. 9-Wcazxuvinj-bsvravq completes the activity by him/herself with no assistance from a helper. 5-Set-up or Clean-up Assistance-helper sets up or cleans up; patient completes activity. [place] assists only prior to or following the activity. 4-Supervision or Touching Assistance-helper provides verbal cues and/or touching/steadying and/or contact guard assistance as patient completes activity. Assistance may be provided throughout the activity or intermittently. 3-Partial/Moderate Assistance-helper does LESS THAN HALF the effort. [place] lifts, holds or supports trunk or limbs, but provides less than half the effort. 2-Substantial/Maximal Assistance-helper does MORE THAN HALF the effort. [place] lifts or holds trunk or limbs and provides more than half the effort. 9-Saordzfxp-mzuupl does ALL the effort. Patient does none of the effort to complete the activity. Or, the assistance of 2 or more helpers is required for the patient to complete the activity. If activity was not attempted, code reason: 7-Patient Refused. 9-Not Applicable-not attempted and the patient did not perform the activity before the current illness, exacerbation or injury. 10-Not Attempted due to Environmental Limitations-(lack of equipment, weather restraints, etc.). 88-Not Attempted due to Medical Conditions or Safety Concerns. OT Short Term Goals Short Term Goals Time Frame: May 18, 2019 Eatin Oral hygiene: 5 Toileting hygiene: 3 OT Snf Goals Snf Goals Time Frame: May 25, 2019 Eating (QC): 5 Oral Hygiene (QC): 5 Toileting Hygiene (QC): 4 Shower/Bathe Self (QC): 9 (Pt. reports that daughter assists her with bathing/dressing.) Upper Body Dressing (QC): 9 Lower Body Dressing (QC): 9 On/Off Footwear (QC): 9 Additional Goals: 1-Demonstrate ADL Tasks, 2-Verbalize Understanding, 3-ImproveStrength/Georges 1=Demonstrate adherence to instructed precautions during ADL tasks. 2=Patient will verbalize/demonstrate understanding of assistive devices/modifications for ADL. 3=Patient will improve strength/tolerance for activity to enable patient to perform ADL's. OT Education/Plan Problem List/Assessment Assessment: Decreased Activ Tolerance, Decreased UE Strength, Impaired Bed Mobility, Impaired Self-Care Skills Discharge Recommendations Plan/Recommendations: Continue POC Treatment Plan/Plan of Care Patient would benefit from OT for education, treatment and training to promote independence in ADL's, mobility, safety and/or upper extremity function for ADL's. Plan of Care: ADL Retraining, Functional Mobility, UE Funct Exercise/Act Treatment Duration: May 25, 2019 Frequency: 5 times per week Estimated Hrs Per Day: .25 hour per day Agreement: Yes Rehab Potential: Guarded Time/GCodes Start Time: 09:10 Stop Time: 09:35 Total Time Billed (hr/min): 25 Billed Treatment Time 1 visit-ADL 2 (25 min) UGO MARTIN May 23, 2019 09:43
--- NOTE | 2019-05-23 10:23 | Physical Therapy Daily Note ---
PT Daily Note-Current Subjective Pt. in bedside chair and agrees to LE exercises only. Mental Status Patient Orientation: Person, Place, Time, Situation Transfers SCALE: Activities may be completed with or without assistive devices. 4-Awncxhpnwm-[id number] completes the activity by him/herself with no assistance from a helper. 5-Set-up or Clean-up Assistance-helper sets up or cleans up; patient completes activity. [place] assists only prior to or following the activity. 4-Supervision or Touching Assistance-helper provides verbal cues and/or touching/steadying and/or contact guard assistance as patient completes activity. Assistance may be provided throughout the activity or intermittently. 3-Partial/Moderate Assistance-helper does LESS THAN HALF the effort. [place] lifts, holds or supports trunk or limbs, but provides less than half the effort. 2-Substantial/Maximal Assistance-helper does MORE THAN HALF the effort. [place] lifts or holds trunk or limbs and provides more than half the effort. 0-Tqluxzube-obwylu does ALL the effort. Patient does none of the effort to complete the activity. Or, the assistance of 2 or more helpers is required for the patient to complete the activity. If activity was not attempted, code reason: 7-Patient Refused. 9-Not Applicable-not attempted and the patient did not perform the activity before the current illness, exacerbation or injury. 10-Not Attempted due to Environmental Limitations-(lack of equipment, weather restraints, etc.). 88-Not Attempted due to Medical Conditions or Safety Concerns. Weight Bearing Right Lower Extremity: Right Weight Bearing/Tolerated Left Lower Extremity: Left Weight Bearing/Tolerated Exercises Supine Ex: Ankle pumps, Quad Set, Straight leg raise, Hip abd/add Supine Reps: 10 Seated Therapy Exercises: Long arc quads, Hip flexion, Hip abd/add, Glut set Seated Reps: 20 Treatments LE exercises Assessment Current Status: Good Progress Pt. did well with seated exercises, declined ambulation. Pt. up in bedside chair post session with call light and all needs met. PT Asp Net Mvc Developer Goals Asp Net Mvc Developer Goals PT Longterm Goals Time Frame: May 26, 2019 Roll Left & Right (QC): 5 Sit to Lying (QC): 5 Lying-Sitting on Side/Bed(QC): 5 Sit to Stand (QC): 5 Chair/Hje-sp-Fvitj Xfer(QC): 5 Toilet Transfer (QC): 5 Car Transfer (QC): 5 Does the Patient Walk: Yes Walk 10 feet (QC): 5 Walk 50ft with 2 Turns (QC): 5 Walk 150 ft (QC): 5 Walking 10ft on Uneven Surface: 5 1 Step (curb) (QC): 9 4 Steps (QC): 9 12 Steps (QC): 9 Picking up an Object (QC): 88 Does the Pt use WC or Scooter?: No Type: N/A Type: N/A PT Plan Treatment/Plan Treatment Plan: Continue Plan of Care Treatment Plan: Bed Mobility, Education, Functional Activity Georges, Functional Strength, Gait, Safety, Therapeutic Exercise, Transfers Treatment Duration: May 26, 2019 Frequency: 6 times per week Estimated Hrs Per Day: .25 hour per day Patient and/or Family Agrees t: Yes Time/GCodes Time In: 1015 Time Out: 1026 Total Billed Treatment Time: 11 Total Billed Treatment 1, Ex 11' ANGELITO ARREOLA PT May 23, 2019 10:23
[2019-05-23 12:00] VITALS: BP 107/65
--- NOTE | 2019-05-23 14:44 | Progress Note ---
Subjective Subjective/Events-last exam Afebrile, feeling overall okay, didn't get up much yesterday. Is okay with fpc if needed. Objective Exam Last Set of Vital Signs Vital Signs Date Time Temp Pulse Resp B/P (MAP) Pulse Ox O2 Delivery O2 Flow Rate FiO2 05/23/19 14:24 92 Nasal Cannula 3.00 05/23/19 12:00 36.6 93 18 107/65 (79) 05/22/19 10:55 36 Capillary Refill : Less Than 3 SecondsLess Than 3 Seconds I&O Intake and Output 05/23/19 00:00 Intake Total 2260 ml Output Total 2750 ml Balance -490 ml Intake Oral 2260 ml Output Urine Total 2750 ml # Bowel Movements 4 Results/Procedures Lab Laboratory Tests 05/22/19 16:12: Glucometer 152H 05/22/19 18:45: Hemoglobin 8.7L, Hematocrit 29L 05/22/19 21:05: Glucometer 213H 05/23/19 05:03: Glucometer 141H 05/23/19 05:18: White Blood Count 9.7, Red Blood Count 2.73L, Hemoglobin 8.0L, Hematocrit 27L, Mean Corpuscular Volume 98, Mean Corpuscular Hemoglobin 29, Mean Corpuscular Hemoglobin Concent 30L, Red Cell Distribution Width 17.9H, Platelet Count 113L, Mean Platelet Volume 10.2, Neutrophils (%) (Auto) 80H, Lymphocytes (%) (Auto) 11L, Monocytes (%) (Auto) 7, Eosinophils (%) (Auto) 2, Basophils (%) (Auto) 0, Neutrophils # (Auto) 7.8, Lymphocytes # (Auto) 1.1, Monocytes # (Auto) 0.6, Eosinophils # (Auto) 0.2, Basophils # (Auto) 0.0, Sodium Level 139, Potassium Level 4.1, Chloride Level 96L, Carbon Dioxide Level 33H, Anion Gap 10, Blood Urea Nitrogen 17, Creatinine 0.55L, Estimat Glomerular Filtration Rate > 60, BUN/Creatinine Ratio 31, Glucose Level 133H, Calcium Level 7.7L 05/23/19 11:23: Glucometer 149H Microbiology 05/16/19 Blood Culture - Final, Complete No growth 05/09/19 Gram Stain - Final, Complete 05/09/19 Sputum Culture - Final, Complete Usual upper respiratory leatha Assessment/Plan Assessment/Plan (1) Acute and chronic respiratory failure Status: Acute Assessment & Plan: 05/08: On Vapotherm, will titrate as possible, MAT protocol 05/09: Patient will be intubated for procedure and will have transfer to ICU after procedure 05/10: Patient required prolonged intubation following ICD placement, Dr Hull managing vent, appreciate recommendations 05/11: Will titrate to High flow NC if tolerated, improving 05/12: At baseline 05/22 on 4 lpm supplemental oxygen (2) Acute on chronic heart failure Status: Acute Assessment & Plan: 05/08: Cardiology consulted and managing, appreciate recommendations Qualifiers: Qualified Codes: I50.43 - Acute on chronic combined systolic (congestive) and diastolic (congestive) heart failure (3) Anasarca Status: Chronic Assessment & Plan: 05/09: Lasix BID, continue to monitor renal function (4) Nonsustained ventricular tachycardia Status: Chronic Assessment & Plan: 05/08: Considering ICD placement during this admission 05/09: Plan for placement today 05/10: ICD successfully placed yesterday 05/22 appreciate Cardiology recommendations (5) Atrial fibrillation Status: Chronic Assessment & Plan: 05/08: Patient high fall risk with multiple falls and is not a good candidate for anticoagulation 05/22 cannot tolerate anticoagulation due to lifethreatening bleed Qualifiers: Qualified Codes: I48.0 - Paroxysmal atrial fibrillation (6) Volume overload Status: Acute Qualifiers: Qualified Codes: E87.70 - Fluid overload, unspecified (7) Debility Status: Acute Assessment & Plan: 05/22 may need nursing facility admit on d/c, Social work to discuss with family (8) Abdominal wall hematoma Assessment & Plan: 05/22 Appears to be improving, monitor hemoglobin closely, has required transfusions this admission. Surgery consulted, no intervention recommended. 05/23 hemoglobin stable (9) DVT prophylaxis Status: Acute Assessment & Plan: No pharmacologic due to life threatening bleeding Clinical Quality Measures DVT/VTE Risk/Contraindication: Risk Factor Score Per Nursin RFS Level Per Nursing on Admit: 4+=Very High TERI LIGHT MD May 23, 2019 14:44
--- NOTE | 2019-05-23 14:45 | NUR ---
CM/SS: Visited with pt and daughter about discharge plan Plan: long-term facility placement discussed Summary: Discussed long-term per physician request. Pt has been at a skilled placement in [place], [place]. Per daughter pt has used all of her skilled days at 100%. Pt would need to pay the 20%. Family indicate they are willing to do so. Choice list offered. Pt and family request [facility] first then [facility] [place]. Referral faxed to [facility] [phone]. Requesting placement by end of week.
--- NOTE | 2019-05-23 15:22 | Cardiology Progress Note ---
Cardiology SOAP Progress Note Subjective: Mild shortness of breath Objective: I&O/Vital Signs 05/23/19 05/23/19 05/23/19 05/23/19 04:57 07:14 08:00 08:00 Temp 36.7 36.8 Pulse 109 81 Resp 18 18 B/P (MAP) 93/64 (74) 97/64 (75) Pulse Ox 97 97 97 O2 Delivery High Flow N/C Nasal Cannula High Flow N/C High Flow N/C O2 Flow Rate 3.00 3.00 4.00 3.00 05/23/19 05/23/19 05/23/19 11:21 12:00 14:24 Temp 36.6 Pulse 93 Resp 18 B/P (MAP) 107/65 (79) Pulse Ox 97 96 92 O2 Delivery Nasal Cannula High Flow N/C Nasal Cannula O2 Flow Rate 3.00 3.00 3.00 05/23/19 00:00 Intake Total 1860 ml Output Total 2450 ml Balance -590 ml Bruising: large amount of bruising Constitutional: appears stated age, AAO x 3; No apparent distress; well- developed, well-nourished Respiratory: chest is bilaterally symmetric, lungs clear to auscultation Cardiovascular: regular rate-rhythm, S1 and S2, other (significant bruising left upper chest.) Gastrointestional: soft, distended, audible bowel sounds; No spleenomegaly Extremities: normal range of motion, non-tender, normal inspection, pedal edema; No clubbing, No cyanosis, No significant edema Neurologic/Psychiatric: no motor/sensory deficits, alert, normal mood/affect, oriented x 3 Skin: normal color, warm/dry; No rash, No ulcerations Results/Procedures: Labs Laboratory Tests 05/22/19 16:12: Glucometer 152H 05/22/19 18:45: Hemoglobin 8.7L, Hematocrit 29L 05/22/19 21:05: Glucometer 213H 05/23/19 05:03: Glucometer 141H 05/23/19 05:18: White Blood Count 9.7, Red Blood Count 2.73L, Hemoglobin 8.0L, Hematocrit 27L, Mean Corpuscular Volume 98, Mean Corpuscular Hemoglobin 29, Mean Corpuscular Hemoglobin Concent 30L, Red Cell Distribution Width 17.9H, Platelet Count 113L, Mean Platelet Volume 10.2, Neutrophils (%) (Auto) 80H, Lymphocytes (%) (Auto) 11L, Monocytes (%) (Auto) 7, Eosinophils (%) (Auto) 2, Basophils (%) (Auto) 0, Neutrophils # (Auto) 7.8, Lymphocytes # (Auto) 1.1, Monocytes # (Auto) 0.6, Eosinophils # (Auto) 0.2, Basophils # (Auto) 0.0, Sodium Level 139, Potassium Level 4.1, Chloride Level 96L, Carbon Dioxide Level 33H, Anion Gap 10, Blood Urea Nitrogen 17, Creatinine 0.55L, Estimat Glomerular Filtration Rate > 60, BUN/Creatinine Ratio 31, Glucose Level 133H, Calcium Level 7.7L 05/23/19 11:23: Glucometer 149H Microbiology 05/16/19 Blood Culture - Final, Complete No growth 05/09/19 Gram Stain - Final, Complete 05/09/19 Sputum Culture - Final, Complete Usual upper respiratory leatha A/P: Assessment/Dx: Numerous episodes of sustained VT, Syncope, Idiopathic VT, PAF Plan: Numerous episodes of sustained VT on ILR interrogation with duration > 30 seconds, working diagnosis of idiopathic VT. Echocardiogram done 04/2019 showed normal LV function. Negative Cath in 12/2018. Dual-chamber ICD placed on 05/09/2019. Implantable loop recorder was removed as well. Patient tolerated procedure well and did not have any complication. Postprocedure chest x-ray did not show any pneumothorax. Device interrogation was within normal limits. Antibiotic course completed. Significant bruising noted in the left upper extremity and the left upper chest as well as the groin. Likely pocket hematoma as well. Patient was on high-dose Lovenox which has been changed to DVT prophylaxis dose on 05/15/2019. No further bleeding. Patient received transfusion due to bleeding/anemia. Syncope, likely secondary to sustained VT. Idiopathic VT, on verapamil. PAF, oral anticoagulation therapy contraindicated due to significant bleeding and anemia. Cardizem for rate control. Severe obstructive and restrictive lung disease, Defer to Dr. Hull and the primary team. Anemia, significant blood loss, have bruising over her chest, abdomen and her arms, received blood transfusion, currently off Lovenox. Continue to monitor Paroxysmal atrial fibrillation, controlled ventricular rate, by mouth Cardizem. Cannot take anticoagulation at this time, heart rate is better. Continue to monitor Debility, generalized weakness, PT/OT on case High risk of stroke, pacemaker site and left arm has significant bruising, the bruising is getting better. Congestive heart failure, acute on chronic left ventricular diastolic dysfunction, hypertensive heart disease. Continue to monitor Cardiac catheterization was done in December 2018 in [facility] and reported having nonobstructive coronary artery disease Paroxysmal atrial fibrillation, had history of recurrent falls with severe consequences, she was not considered a candidate for oral anticoagulation, continue with physical therapy for strengthening and improving gait Type II myocardial infarction, probably secondary to hypoxemia, mild elevation in troponin, had a cardiac catheterization on January 11, 2019 in [facility] and reported normal coronaries. Continue to monitor Peripheral edema, improving slowly Hypertension, monitor blood pressure Hyperlipidemia, monitor lipids Morbid obesity Thank you for your consultation. Please call me if you have any questions. John Ward MD, FACP, FACC, FSCAI, FHRS, CCDS Interventional Cardiology Cardiac Electrophysiology Vascular Medicine and Endovascular Interventions Winston WARD MD May 23, 2019 15:22
[2019-05-23 16:00] VITALS: BP 90/61
[2019-05-23 18:12] LABS: HEMOGLOBIN 9.2 G/DL (11.5-16.0)
[2019-05-23 19:00] VITALS: BP 97/57
[2019-05-24] VITALS (8 sets, daily range): BP systolic 96–128; BP diastolic 63–84
[2019-05-24] MEDS: CATHETER FLUSH 10 ML SYR IV SCH ×4 (00:26→21:32)
[2019-05-24] MEDS: DILTIAZEM 30 MG (CARDIZEM) TAB PO SCH ×5 (00:30→23:20)
[2019-05-24] MEDS: RT-ALBUTEROL/IPRATROPIUM 3 ML (DUONEB) VIAL INH SCH ×5 (02:07→20:16)
[2019-05-24 05:52] LABS: HEMOGLOBIN 8.9 G/DL (11.5-16.0)
[2019-05-24 06:27] LABS: BUN/CREATININE RATIO 36; CALCIUM 8.2 MG/DL (8.5-10.1); CARBON DIOXIDE 33 MMOL/L (21-32); CHLORIDE 94 MMOL/L (98-107); CREATININE SERUM 0.64 MG/DL (0.60-1.30); GFR ESTIMATED > 60; GLUCOSE 149 MG/DL (70-105); MAGNESIUM 1.9 MG/DL (1.6-2.4); POTASSIUM 4.3 MMOL/L (3.6-5.0); SODIUM 138 MMOL/L (135-145)
[2019-05-24] MEDS: RT-BUDESONIDE NEBS 0.5 MG/2ML (PULMICORT) AMP INH SCH ×2 (06:29→20:16)
[2019-05-24] MEDS: inSUlin ASPART (NovoLOG) 1 UNIT/0.01 ML (CHARGE PER UNIT) SC SCH ×4 (06:45→21:32)
[2019-05-24] MEDS: KCL 20 MEQ TAB (K-DUR) PO SCH (06:45)
[2019-05-24] MEDS: FUROSEMIDE 40 MG/4 ML INJ (LASIX) IVP SCH (07:32)
[2019-05-24] MEDS: CARVEDILOL 3.125 MG (COREG) TABLET PO SCH ×2 (08:14→21:32)
[2019-05-24] MEDS: ASPIRIN E.C. 81 MG (ECOTRIN) TAB PO SCH (08:14)
[2019-05-24] MEDS: DIGOXIN 0.25 MG (LANOXIN) TAB PO SCH (08:14)
[2019-05-24] MEDS: PANTOPRAZOLE 40 MG (PROTONIX) TAB PO SCH (08:14)
--- NOTE | 2019-05-24 13:25 | Progress Note ---
Subjective Subjective/Events-last exam Afebrile, states she would be okay if people left her alone. Objective Exam Last Set of Vital Signs Vital Signs Date Time Temp Pulse Resp B/P (MAP) Pulse Ox O2 Delivery O2 Flow Rate FiO2 05/24/19 11:15 36.6 87 20 128/82 (97) 96 High Flow N/C 3.00 05/22/19 10:55 36 Capillary Refill : Less Than 3 SecondsLess Than 3 Seconds I&O Intake and Output 05/24/19 00:00 Intake Total 1930 ml Output Total 2975 ml Balance -1045 ml Intake Oral 1920 ml IV Total 10 ml Output Urine Total 2975 ml # Bowel Movements 1 General: Alert, No Acute Distress Lungs: Clear to Auscultation, Normal Air Movement Heart: Regular Rate, No Murmurs Skin: Other (purple ecchymoses over chest, abdomen, arms) Psych/Mental Status: Other (irritable) Results/Procedures Lab Laboratory Tests 05/23/19 15:58: Glucometer 236H 05/23/19 18:00: Hemoglobin 9.2L, Hematocrit 31L 05/23/19 20:27: Glucometer 181H 05/24/19 05:40: Hemoglobin 8.9L, Hematocrit 29L, Sodium Level 138, Potassium Level 4.3, Chloride Level 94L, Carbon Dioxide Level 33H, Anion Gap 11, Blood Urea Nitrogen 23H, Creatinine 0.64, Estimat Glomerular Filtration Rate > 60, BUN/Creatinine Ratio 36, Glucose Level 149H, Calcium Level 8.2L, Magnesium Level 1.9 05/24/19 10:33: Glucometer 216H Microbiology 05/16/19 Blood Culture - Final, Complete No growth 05/09/19 Gram Stain - Final, Complete 05/09/19 Sputum Culture - Final, Complete Usual upper respiratory leatha Assessment/Plan Assessment/Plan (1) Acute and chronic respiratory failure Status: Acute Assessment & Plan: 05/08: On Vapotherm, will titrate as possible, MAT protocol 05/09: Patient will be intubated for procedure and will have transfer to ICU after procedure 05/10: Patient required prolonged intubation following ICD placement, Dr Hull managing vent, appreciate recommendations 05/11: Will titrate to High flow NC if tolerated, improving 05/12: At baseline 05/22 on 4 lpm supplemental oxygen (2) Acute on chronic heart failure Status: Acute Assessment & Plan: 05/08: Cardiology consulted and managing, appreciate recommendations Qualifiers: Qualified Codes: I50.43 - Acute on chronic combined systolic (congestive) and diastolic (congestive) heart failure (3) Anasarca Status: Chronic Assessment & Plan: 05/09: Lasix BID, continue to monitor renal function 05/24 change to oral (4) Nonsustained ventricular tachycardia Status: Chronic Assessment & Plan: 05/08: Considering ICD placement during this admission 05/09: Plan for placement today 05/10: ICD successfully placed yesterday 05/22 appreciate Cardiology recommendations (5) Atrial fibrillation Status: Chronic Assessment & Plan: 05/08: Patient high fall risk with multiple falls and is not a good candidate for anticoagulation 05/22 cannot tolerate anticoagulation due to lifethreatening bleed Qualifiers: Qualified Codes: I48.0 - Paroxysmal atrial fibrillation (6) Volume overload Status: Acute Qualifiers: Qualified Codes: E87.70 - Fluid overload, unspecified (7) Debility Status: Acute Assessment & Plan: 05/22 may need nursing facility admit on d/c, Social work to discuss with family (8) Abdominal wall hematoma Assessment & Plan: 05/22 Appears to be improving, monitor hemoglobin closely, has required transfusions this admission. Surgery consulted, no intervention recommended. 05/23 hemoglobin stable (9) DVT prophylaxis Status: Acute Assessment & Plan: No pharmacologic due to life threatening bleeding Clinical Quality Measures DVT/VTE Risk/Contraindication: Risk Factor Score Per Nursin RFS Level Per Nursing on Admit: 4+=Very High TERI LIGHT MD May 24, 2019 13:25
--- NOTE | 2019-05-24 13:43 | Cardiology Progress Note ---
Cardiology SOAP Progress Note Subjective: To me subjectively it looks like the patient's shortness of breath has improved significantly over the last few days. Objective: I&O/Vital Signs 05/24/19 05/24/19 05/24/19 05/24/19 04:00 06:29 07:29 08:00 Temp 36.6 36.6 Pulse 88 85 Resp 18 20 B/P (MAP) 103/68 (80) 122/84 (97) Pulse Ox 99 98 95 97 O2 Delivery High Flow N/C High Flow N/C High Flow N/C High Flow N/C O2 Flow Rate 4.00 4.00 3.00 3.00 05/24/19 05/24/19 05/24/19 09:40 09:40 11:15 Temp 36.6 Pulse 84 87 Resp 20 B/P (MAP) 128/82 (97) Pulse Ox 97 97 96 O2 Delivery High Flow N/C High Flow N/C O2 Flow Rate 3.00 3.00 05/24/19 00:00 Intake Total 1870 ml Output Total 2625 ml Balance -755 ml Bruising: large amount of bruising Constitutional: appears stated age, AAO x 3; No apparent distress; well- developed, well-nourished Respiratory: chest is bilaterally symmetric, lungs clear to auscultation Cardiovascular: regular rate-rhythm, S1 and S2, other (significant bruising left upper chest.) Gastrointestional: soft, distended, audible bowel sounds; No spleenomegaly Extremities: normal range of motion, non-tender, normal inspection, pedal edema; No clubbing, No cyanosis, No significant edema Neurologic/Psychiatric: no motor/sensory deficits, alert, normal mood/affect, oriented x 3 Skin: normal color, warm/dry; No rash, No ulcerations Results/Procedures: Labs Laboratory Tests 05/23/19 15:58: Glucometer 236H 05/23/19 18:00: Hemoglobin 9.2L, Hematocrit 31L 05/23/19 20:27: Glucometer 181H 05/24/19 05:40: Hemoglobin 8.9L, Hematocrit 29L, Sodium Level 138, Potassium Level 4.3, Chloride Level 94L, Carbon Dioxide Level 33H, Anion Gap 11, Blood Urea Nitrogen 23H, Creatinine 0.64, Estimat Glomerular Filtration Rate > 60, BUN/Creatinine Ratio 36, Glucose Level 149H, Calcium Level 8.2L, Magnesium Level 1.9 05/24/19 10:33: Glucometer 216H Microbiology 05/16/19 Blood Culture - Final, Complete No growth 05/09/19 Gram Stain - Final, Complete 05/09/19 Sputum Culture - Final, Complete Usual upper respiratory leatha A/P: Assessment/Dx: Numerous episodes of sustained VT, Syncope, Idiopathic VT, PAF Plan: Numerous episodes of sustained VT on ILR interrogation with duration > 30 seconds, working diagnosis of idiopathic VT. Echocardiogram done 04/2019 showed normal LV function. Negative Cath in 12/2018. Dual-chamber ICD placed on 05/09/2019. Implantable loop recorder was removed as well. Patient tolerated procedure well and did not have any complication. Postprocedure chest x-ray did not show any pneumothorax. Device interrogation was within normal limits. Antibiotic course completed. Significant bruising noted in the left upper extremity and the left upper chest as well as the groin. Likely pocket hematoma as well. Patient was on high-dose Lovenox which has been changed to DVT prophylaxis dose on 05/15/2019. No further bleeding. The dressing was changed on 05/16/2019. No further soaking of the dressing. Dressing was changed yesterday 05/23/2019. Bruising still present however the area is very soft with no evidence of further bleeding. Likely small pocket hematoma which is resolving gradually. Patient received transfusion due to bleeding/anemia. Syncope, likely secondary to sustained VT. Idiopathic VT, on verapamil. PAF, oral anticoagulation therapy contraindicated due to significant bleeding and anemia. Cardizem for rate control. Severe obstructive and restrictive lung disease, Defer to Dr. Hull and the primary team. Anemia, significant blood loss, have bruising over her chest, abdomen and her arms, received blood transfusion, currently off Lovenox. Continue to monitor Paroxysmal atrial fibrillation, controlled ventricular rate, by mouth Cardizem. Cannot take anticoagulation at this time, heart rate is better. Continue to monitor Debility, generalized weakness, PT/OT on case High risk of stroke, pacemaker site and left arm has significant bruising, the bruising is getting better. Congestive heart failure, acute on chronic left ventricular diastolic dysfunction, hypertensive heart disease. Continue to monitor [facility] and reported having nonobstructive coronary artery disease Paroxysmal atrial fibrillation, had history of recurrent falls with severe consequences, she was not considered a candidate for oral anticoagulation, continue with physical therapy for strengthening and improving gait Type II myocardial infarction, probably secondary to hypoxemia, mild elevation in troponin, had a cardiac catheterization on January [facility], 2019 in [facility] and reported normal coronaries. Continue to monitor Peripheral edema, improving slowly Hypertension, monitor blood pressure Hyperlipidemia, monitor lipids Morbid obesity Thank you for your consultation. Please call me if you have any questions. John Ward MD, FACP, FACC, FSCAI, FHRS, CCDS Interventional Cardiology Cardiac Electrophysiology Vascular Medicine and Endovascular Interventions Winston WARD MD May 24, 2019 13:43
--- NOTE | 2019-05-24 16:00 | NUR ---
report received from [facility] to assume nursing care for this patient
[2019-05-24] MEDS: FUROSEMIDE 40 MG (LASIX) TAB PO SCH (17:44)
[2019-05-24 22:10] LABS: HEMOGLOBIN 8.1 G/DL (11.5-16.0)
[2019-05-25] VITALS (7 sets, daily range): BP systolic 101–119; BP diastolic 55–78
[2019-05-25] MEDS: RT-ALBUTEROL/IPRATROPIUM 3 ML (DUONEB) VIAL INH SCH ×4 (02:31→20:35)
[2019-05-25] MEDS: HYDROcodone/APAP 7.5 MG/325 MG (LORTAB, LORCET PLUS) TABLET PO PRN (03:05)
[2019-05-25 05:56] LABS: HEMOGLOBIN 8.5 G/DL (11.5-16.0)
[2019-05-25 06:11] LABS: BUN/CREATININE RATIO 32; CALCIUM 8.1 MG/DL (8.5-10.1); CARBON DIOXIDE 30 MMOL/L (21-32); CHLORIDE 97 MMOL/L (98-107); CREATININE SERUM 0.65 MG/DL (0.60-1.30); GFR ESTIMATED > 60; GLUCOSE 187 MG/DL (70-105); POTASSIUM 4.6 MMOL/L (3.6-5.0); SODIUM 140 MMOL/L (135-145)
[2019-05-25] MEDS: KCL 20 MEQ TAB (K-DUR) PO SCH (06:45)
[2019-05-25] MEDS: FUROSEMIDE 40 MG (LASIX) TAB PO SCH ×2 (06:46→17:51)
[2019-05-25] MEDS: inSUlin ASPART (NovoLOG) 1 UNIT/0.01 ML (CHARGE PER UNIT) SC SCH ×4 (06:46→21:33)
[2019-05-25] MEDS: DILTIAZEM 30 MG (CARDIZEM) TAB PO SCH ×3 (06:46→17:51)
[2019-05-25] MEDS: CATHETER FLUSH 10 ML SYR IV SCH ×2 (06:47→12:17)
[2019-05-25] MEDS: DIGOXIN 0.25 MG (LANOXIN) TAB PO SCH (08:10)
[2019-05-25] MEDS: ASPIRIN E.C. 81 MG (ECOTRIN) TAB PO SCH (08:10)
[2019-05-25] MEDS: PANTOPRAZOLE 40 MG (PROTONIX) TAB PO SCH (08:10)
[2019-05-25] MEDS: CARVEDILOL 3.125 MG (COREG) TABLET PO SCH ×2 (08:11→21:37)
[2019-05-25] MEDS: RT-BUDESONIDE NEBS 0.5 MG/2ML (PULMICORT) AMP INH SCH ×2 (09:08→20:35)
--- NOTE | 2019-05-25 10:14 | NUR ---
DISCHARGE PLANNING/PALLIATIVE CARE RN: Spoke to [facility] referral sent on Wednesday. [facility]rol reports they have declined admission due to having used her 100% covered Skilled days and is now into her 80/20 CoPay days. Referral sent to her 2nd choice of [facility]. Await decision.
--- NOTE | 2019-05-25 11:14 | Occupational Ther Daily Note ---
OT Current Status-Daily Note Subjective Pt seated upright in recliner. Pt agreeable to OT tx focusing on arm exercises with mod encouragment. ADL-Treatment Therapy Code Descriptions/Definitions Functional [place] Measure: 0=Not Assessed/NA 4=Minimal Assistance 1=Total Assistance 5=Supervision or Setup 2=Maximal Assistance 6=Modified [place] 3=Moderate Assistance 7=Complete IndependenceSCALE: Activities may be completed with or without assistive devices. 1-Mjvcrgzgmh-fssdxdi completes the activity by him/herself with no assistance from a helper. 5-Set-up or Clean-up Assistance-helper sets up or cleans up; patient completes activity. [place] assists only prior to or following the activity. 4-Supervision or Touching Assistance-helper provides verbal cues and/or touching/steadying and/or contact guard assistance as patient completes activity. Assistance may be provided throughout the activity or intermittently. 3-Partial/Moderate Assistance-helper does LESS THAN HALF the effort. [place] lifts, holds or supports trunk or limbs, but provides less than half the effort. 2-Substantial/Maximal Assistance-helper does MORE THAN HALF the effort. [place] lifts or holds trunk or limbs and provides more than half the effort. 2-Splekgoxn-wrutrw does ALL the effort. Patient does none of the effort to complete the activity. Or, the assistance of 2 or more helpers is required for the patient to complete the activity. If activity was not attempted, code reason: 7-Patient Refused. 9-Not Applicable-not attempted and the patient did not perform the activity before the current illness, exacerbation or injury. 10-Not Attempted due to Environmental Limitations-(lack of equipment, weather restraints, etc.). 88-Not Attempted due to Medical Conditions or Safety Concerns. Other Treatment Pt completed BUE exercises x15 reps each in order to increase BUE strength and endurance. Pt completed elbow flexion, front punch and shoulder flexion. Pt reports increase pain in her shoulders with shoulder flexion but states it is not a sharp pain. Pt required rest breaks between each exercise. Post OT session, pt seated upright in recliner, call light in reach and all need met. Education OT Patient Education: Correct positioning, Energy conservation, Exercise program, Modified ADL techniques Teaching Recipient: Patient Teaching Methods: Demonstration, Discussion Response to Teaching: Verbalize Understanding, Return Demonstration OT Short Term Goals Short Term Goals Time Frame: May 18, 2019 Eatin Oral hygiene: 5 Toileting hygiene: 3 OT Intermediate Goals Intermediate Goals Time Frame: May 25, 2019 Eating (QC): 5 Oral Hygiene (QC): 5 Toileting Hygiene (QC): 4 Shower/Bathe Self (QC): 9 (Pt. reports that daughter assists her with bathing/dressing.) Upper Body Dressing (QC): 9 Lower Body Dressing (QC): 9 On/Off Footwear (QC): 9 Additional Goals: 1-Demonstrate ADL Tasks, 2-Verbalize Understanding, 3- ImproveStrength/Georges 1=Demonstrate adherence to instructed precautions during ADL tasks. 2=Patient will verbalize/demonstrate understanding of assistive devices/modifications for ADL. 3=Patient will improve strength/tolerance for activity to enable patient to perform ADL's. OT Education/Plan Problem List/Assessment Assessment: Decreased Activ Tolerance, Decreased UE Strength, Impaired I ADL's, Impaired Self-Care Skills Discharge Recommendations Plan/Recommendations: Continue POC Treatment Plan/Plan of Care Treatment,Training & Education: Yes Patient would benefit from OT for education, treatment and training to promote independence in ADL's, mobility, safety and/or upper extremity function for ADL's. Plan of Care: ADL Retraining, Functional Mobility, UE Funct Exercise/Act Treatment Duration: May 25, 2019 Frequency: 5 times per week Estimated Hrs Per Day: .25 hour per day Agreement: Yes Rehab Potential: Guarded Time/GCodes Start Time: 10:35 Stop Time: 10:43 Total Time Billed (hr/min): 8 Billed Treatment Time 1, EX KAELYN RUSSELL OT May 25, 2019 11:14
--- NOTE | 2019-05-25 11:19 | Physical Therapy Daily Note ---
PT Daily Note-Current Subjective Pt reports she is tired. Reports she doesn't get rest because people keep coming in and waking her up. Pt declines standing activities. Only agrees to chair exercises. Transfers SCALE: Activities may be completed with or without assistive devices. 7-Bnqfzztygx-pdnrrnf completes the activity by him/herself with no assistance from a helper. 5-Set-up or Clean-up Assistance-helper sets up or cleans up; patient completes activity. [place] assists only prior to or following the activity. 4-Supervision or Touching Assistance-helper provides verbal cues and/or touching/steadying and/or contact guard assistance as patient completes activity. Assistance may be provided throughout the activity or intermittently. 3-Partial/Moderate Assistance-helper does LESS THAN HALF the effort. [place] lifts, holds or supports trunk or limbs, but provides less than half the effort. 2-Substantial/Maximal Assistance-helper does MORE THAN HALF the effort. [place] lifts or holds trunk or limbs and provides more than half the effort. 9-Mmhcwmdcg-ohpkcf does ALL the effort. Patient does none of the effort to complete the activity. Or, the assistance of 2 or more helpers is required for the patient to complete the activity. If activity was not attempted, code reason: 7-Patient Refused. 9-Not Applicable-not attempted and the patient did not perform the activity before the current illness, exacerbation or injury. 10-Not Attempted due to Environmental Limitations-(lack of equipment, weather restraints, etc.). 88-Not Attempted due to Medical Conditions or Safety Concerns. Weight Bearing Right Lower Extremity: Right Weight Bearing/Tolerated Left Lower Extremity: Left Weight Bearing/Tolerated Exercises Supine Ex: Ankle pumps, Quad Set, Glut sets, Heel Slides, Knee to chest, Short Arc Quads, Hip abd/add Supine Reps: 15 (LE strength to promote improved transfers and gait. ) Assessment Chair exercises only. Tolerated well PT Extruding Press Operator Goals Extruding Press Operator Goals PT Intermediate Goals Time Frame: May 26, 2019 Roll Left & Right (QC): 5 Sit to Lying (QC): 5 Lying-Sitting on Side/Bed(QC): 5 Sit to Stand (QC): 5 Chair/Dzk-dt-Jdzrk Xfer(QC): 5 Toilet Transfer (QC): 5 Car Transfer (QC): 5 Does the Patient Walk: Yes Walk 10 feet (QC): 5 Walk 50ft with 2 Turns (QC): 5 Walk 150 ft (QC): 5 Walking 10ft on Uneven Surface: 5 1 Step (curb) (QC): 9 4 Steps (QC): 9 12 Steps (QC): 9 Picking up an Object (QC): 88 Does the Pt use WC or Scooter?: No Type: N/A Type: N/A PT Plan Problem List Problem List: Activity Tolerance, Functional Strength, Safety, Balance, Gait, Transfer Treatment/Plan Treatment Plan: Continue Plan of Care Treatment Plan: Bed Mobility, Education, Functional Activity Georges, Functional Strength, Gait, Safety, Therapeutic Exercise, Transfers Treatment Duration: May 26, 2019 Frequency: 6 times per week Estimated Hrs Per Day: .25 hour per day Patient and/or Family Agrees t: Yes Safety Risks/Education Patient Education: Safety Issues Teaching Recipient: Patient Teaching Methods: Discussion Response to Teaching: Reinforcement Needed Time/GCodes Time In: 1050 Time Out: 1102 Total Billed Treatment Time: 12 Total Billed Treatment visit EX 12 UGO AMOR PT May 25, 2019 11:19
--- NOTE | 2019-05-25 11:19 | Occ Therapy Rehab Re-Cert ---
OT Re-Certification Form Plan of Care: ADL Retraining, Functional Mobility, UE Funct Exercise/Act Frequency: 5 times per week Estimated Hrs Per Day: .25 hour per day Agreement: Yes Rehab Potential: Guarded OT Short Term Goals Short Term Goals Time Frame: May 18, 2019 Eatin Oral hygiene: 5 Toileting hygiene: 3 OT Spindle Plumber Goals Mcfp Goals Time Frame: Jun 02, 2019 Additional Goals: 1-Demonstrate ADL Tasks, 2-Verbalize Understanding, 3-ImproveStrength/Georges 1=Demonstrate adherence to instructed precautions during ADL tasks. 2=Patient will verbalize/demonstrate understanding of assistive devices/modifications for ADL. 3=Patient will improve strength/tolerance for activity to enable patient to perform ADL's. QC Goals: Eating 5, Oral hygiene 5, Toileting hygiene 4, Showering 9, upper body dressing 9, lower body dressing 9, footwear 9 KAELYN RUSSELL OT May 25, 2019 11:19
--- NOTE | 2019-05-25 13:03 | Progress Note ---
Subjective Subjective/Events-last exam Afebrile, denies concerns. Objective Exam Last Set of Vital Signs Vital Signs Date Time Temp Pulse Resp B/P (MAP) Pulse Ox O2 Delivery O2 Flow Rate FiO2 05/25/19 11:48 36.0 78 16 102/70 (81) 100 High Flow N/C 2.50 05/22/19 10:55 36 Capillary Refill : Less Than 3 SecondsLess Than 3 Seconds I&O Intake and Output 05/25/19 00:00 Intake Total 1080 ml Output Total 1250 ml Balance -170 ml Intake Oral 1080 ml Output Urine Total 1250 ml # Voids 2 # Bowel Movements 2 General: Alert, No Acute Distress Lungs: Clear to Auscultation, Normal Air Movement Heart: Regular Rate, No Murmurs Results/Procedures Lab Laboratory Tests 05/24/19 16:02: Glucometer 196H 05/24/19 21:03: Glucometer 221H 05/24/19 22:02: Hemoglobin 8.1L, Hematocrit 27L 05/25/19 05:26: Glucometer 214H 05/25/19 05:29: Hemoglobin 8.5L, Hematocrit 29L, Sodium Level 140, Potassium Level 4.6, Chloride Level 97L, Carbon Dioxide Level 30, Anion Gap 13, Blood Urea Nitrogen 21H, Creatinine 0.65, Estimat Glomerular Filtration Rate > 60, BUN/Creatinine Ratio 32, Glucose Level 187H, Calcium Level 8.1L 05/25/19 11:22: Glucometer 166H Microbiology 05/16/19 Blood Culture - Final, Complete No growth 05/09/19 Gram Stain - Final, Complete 05/09/19 Sputum Culture - Final, Complete Usual upper respiratory leatha Assessment/Plan Assessment/Plan (1) Acute and chronic respiratory failure Status: Acute Assessment & Plan: 05/08: On Vapotherm, will titrate as possible, MAT protocol 05/09: Patient will be intubated for procedure and will have transfer to ICU after procedure 05/10: Patient required prolonged intubation following ICD placement, Dr Hull managing vent, appreciate recommendations 05/11: Will titrate to High flow NC if tolerated, improving 05/12: At baseline 05/22 on 4 lpm supplemental oxygen (2) Acute on chronic heart failure Status: Acute Assessment & Plan: 05/08: Cardiology consulted and managing, appreciate recommendations Qualifiers: Qualified Codes: I50.43 - Acute on chronic combined systolic (congestive) and diastolic (congestive) heart failure (3) Anasarca Status: Chronic Assessment & Plan: 05/09: Lasix BID, continue to monitor renal function 05/24 change to oral (4) Nonsustained ventricular tachycardia Status: Chronic Assessment & Plan: 05/08: Considering ICD placement during this admission 05/09: Plan for placement today 05/10: ICD successfully placed yesterday 05/22 appreciate Cardiology recommendations (5) Atrial fibrillation Status: Chronic Assessment & Plan: 05/08: Patient high fall risk with multiple falls and is not a good candidate for anticoagulation 05/22 cannot tolerate anticoagulation due to lifethreatening bleed Qualifiers: Qualified Codes: I48.0 - Paroxysmal atrial fibrillation (6) Volume overload Status: Acute Qualifiers: Qualified Codes: E87.70 - Fluid overload, unspecified (7) Debility Status: Acute Assessment & Plan: 05/22 may need nursing facility admit on d/c, Social work to discuss with family (8) Abdominal wall hematoma Assessment & Plan: 05/22 Appears to be improving, monitor hemoglobin closely, has required transfusions this admission. Surgery consulted, no intervention recommended. 05/23 hemoglobin stable (9) DVT prophylaxis Status: Acute Assessment & Plan: No pharmacologic due to life threatening bleeding (10) Discharge planning issues Assessment & Plan: Cannot function safely for home discharge at this time, looking into nursing facility. Clinical Quality Measures DVT/VTE Risk/Contraindication: Risk Factor Score Per Nursin RFS Level Per Nursing on Admit: 4+=Very High TERI LIGHT MD May 25, 2019 13:03
--- NOTE | 2019-05-25 16:55 | Cardiology Progress Note ---
Cardiology SOAP Progress Note Subjective: Improved shortness of breath. Objective: I&O/Vital Signs 05/25/19 05/25/19 05/25/19 05/25/19 07:39 08:00 09:09 09:14 Temp 36.1 Pulse 86 Resp 18 B/P (MAP) 119/78 (92) Pulse Ox 95 97 95 95 O2 Delivery High Flow N/C High Flow N/C High Flow N/C High Flow N/C O2 Flow Rate 2.50 3.00 2.50 2.50 05/25/19 05/25/19 05/25/19 11:48 15:38 15:56 Temp 36.0 36.2 Pulse 78 54 Resp 16 24 B/P (MAP) 102/70 (81) 114/63 (80) Pulse Ox 100 94 90 O2 Delivery High Flow N/C High Flow N/C High Flow N/C O2 Flow Rate 2.50 2.50 2.50 05/25/19 00:00 Intake Total 780 ml Output Total 800 ml Balance -20 ml Bruising: large amount of bruising Constitutional: appears stated age, AAO x 3; No apparent distress; well- developed, well-nourished Respiratory: chest is bilaterally symmetric, lungs clear to auscultation Cardiovascular: regular rate-rhythm, S1 and S2, other (significant bruising left upper chest.) Gastrointestional: soft, distended, audible bowel sounds; No spleenomegaly Extremities: normal range of motion, non-tender, normal inspection, pedal edema; No clubbing, No cyanosis, No significant edema Neurologic/Psychiatric: no motor/sensory deficits, alert, normal mood/affect, oriented x 3 Skin: normal color, warm/dry; No rash, No ulcerations Results/Procedures: Labs Laboratory Tests 05/24/19 21:03: Glucometer 221H 05/24/19 22:02: Hemoglobin 8.1L, Hematocrit 27L 05/25/19 05:26: Glucometer 214H 05/25/19 05:29: Hemoglobin 8.5L, Hematocrit 29L, Sodium Level 140, Potassium Level 4.6, Chloride Level 97L, Carbon Dioxide Level 30, Anion Gap 13, Blood Urea Nitrogen 21H, Creatinine 0.65, Estimat Glomerular Filtration Rate > 60, BUN/Creatinine Ratio 32, Glucose Level 187H, Calcium Level 8.1L 05/25/19 11:22: Glucometer 166H 05/25/19 15:45: Glucometer 155H Microbiology 05/16/19 Blood Culture - Final, Complete No growth 05/09/19 Gram Stain - Final, Complete 05/09/19 Sputum Culture - Final, Complete Usual upper respiratory leatha A/P: Assessment/Dx: sustained VT, status post ICD Syncope, Idiopathic VT, PAF Plan: Numerous episodes of sustained VT on ILR interrogation with duration > 30 seconds, working diagnosis of idiopathic VT. Echocardiogram done 04/2019 showed normal LV function. Negative Cath in 12/2018. Dual-chamber ICD placed on 05/09/2019. Implantable loop recorder was removed as well. Patient tolerated procedure well and did not have any complication. Postprocedure chest x-ray did not show any pneumothorax. Device interrogation was within normal limits. Antibiotic course completed. Significant bruising noted in the left upper extremity and the left upper chest as well as the groin. Likely pocket hematoma as well. Patient was on high-dose Lovenox which has been changed to DVT prophylaxis dose on 05/15/2019. No further bleeding. The dressing was changed on 05/16/2019. No further soaking of the dressing. Dressing was changed 05/23/2019. Bruising still present however the area is very soft with no evidence of further bleeding. Likely small pocket hematoma which is resolving gradually. Patient received transfusion due to bleeding/anemia. Syncope, likely secondary to sustained VT. Idiopathic VT, on verapamil. PAF, oral anticoagulation therapy contraindicated due to significant bleeding and anemia. Cardizem for rate control. Severe obstructive and restrictive lung disease, Defer to Dr. Hull and the primary team. Anemia, significant blood loss, have bruising over her chest, abdomen and her arms, received blood transfusion, currently off Lovenox. Continue to monitor Paroxysmal atrial fibrillation, controlled ventricular rate, by mouth Cardizem. Cannot take anticoagulation at this time, heart rate is better. Continue to monitor Debility, generalized weakness, PT/OT on case High risk of stroke, pacemaker site and left arm has significant bruising, the bruising is getting better. Congestive heart failure, acute on chronic left ventricular diastolic dysfunction, hypertensive heart disease. Continue to monitor Cardiac catheterization was done in December 2018 in [facility] and reported having nonobstructive coronary artery disease Paroxysmal atrial fibrillation, had history of recurrent falls with severe consequences, she was not considered a candidate for oral anticoagulation, continue with physical therapy for strengthening and improving gait Type II myocardial infarction, probably secondary to hypoxemia, mild elevation in troponin, had a cardiac catheterization on January 11, 2019 in [facility] and reported normal coronaries. Continue to monitor Peripheral edema, improving slowly Hypertension, monitor blood pressure Hyperlipidemia, monitor lipids Morbid obesity Thank you for your consultation. Please call me if you have any questions. John Ward MD, FACP, FACC, FSCAI, FHRS, CCDS Interventional Cardiology Cardiac Electrophysiology Vascular Medicine and Endovascular Interventions Winston WARD MD May 25, 2019 16:55
[2019-05-26] MEDS: CATHETER FLUSH 10 ML SYR IV SCH ×2 (00:24→05:43)
[2019-05-26] MEDS: DILTIAZEM 30 MG (CARDIZEM) TAB PO SCH ×3 (00:24→12:41)
[2019-05-26] MEDS: RT-ALBUTEROL/IPRATROPIUM 3 ML (DUONEB) VIAL INH SCH ×2 (02:15→09:22)
[2019-05-26 03:19] VITALS: BP 107/71
[2019-05-26 06:05] LABS: HEMOGLOBIN 8.7 G/DL (11.5-16.0); RED CELL DISTRIBUTION WIDTH 18.4 % (10.0-14.5)
[2019-05-26] MEDS: inSUlin ASPART (NovoLOG) 1 UNIT/0.01 ML (CHARGE PER UNIT) SC SCH ×2 (06:18→12:40)
[2019-05-26] MEDS: FUROSEMIDE 40 MG (LASIX) TAB PO SCH (06:18)
[2019-05-26 06:53] VITALS: BP 108/72
[2019-05-26] MEDS: KCL 20 MEQ TAB (K-DUR) PO SCH (07:26)
[2019-05-26] MEDS: PANTOPRAZOLE 40 MG (PROTONIX) TAB PO SCH (08:09)
[2019-05-26] MEDS: ASPIRIN E.C. 81 MG (ECOTRIN) TAB PO SCH (08:09)
[2019-05-26] MEDS: CARVEDILOL 3.125 MG (COREG) TABLET PO SCH (08:09)
[2019-05-26] MEDS: DIGOXIN 0.25 MG (LANOXIN) TAB PO SCH (08:10)
[2019-05-26 08:48] VITALS: BP 108/72
--- NOTE | 2019-05-26 09:11 | Occupational Ther Daily Note ---
OT Current Status-Daily Note Subjective Pt seated upright in recliner, declines all ADLs on this date stating "I took a sponge bath yesterday", pt agreed to BUE exercises. She did not report any pain during tx. ADL-Treatment Therapy Code Descriptions/Definitions Functional [place] Measure: 0=Not Assessed/NA 4=Minimal Assistance 1=Total Assistance 5=Supervision or Setup 2=Maximal Assistance 6=Modified [place] 3=Moderate Assistance 7=Complete IndependenceSCALE: Activities may be completed with or without assistive devices. 5-Qehamdlkux-miujwyv completes the activity by him/herself with no assistance from a helper. 5-Set-up or Clean-up Assistance-helper sets up or cleans up; patient completes activity. [place] assists only prior to or following the activity. 4-Supervision or Touching Assistance-helper provides verbal cues and/or touching/steadying and/or contact guard assistance as patient completes activity. Assistance may be provided throughout the activity or intermittently. 3-Partial/Moderate Assistance-helper does LESS THAN HALF the effort. [place] lifts, holds or supports trunk or limbs, but provides less than half the effort. 2-Substantial/Maximal Assistance-helper does MORE THAN HALF the effort. [place] lifts or holds trunk or limbs and provides more than half the effort. 9-Foxdbgsyp-sfxygv does ALL the effort. Patient does none of the effort to complete the activity. Or, the assistance of 2 or more helpers is required for the patient to complete the activity. If activity was not attempted, code reason: 7-Patient Refused. 9-Not Applicable-not attempted and the patient did not perform the activity before the current illness, exacerbation or injury. 10-Not Attempted due to Environmental Limitations-(lack of equipment, weather restraints, etc.). 88-Not Attempted due to Medical Conditions or Safety Concerns. Other Treatment Pt seated upright in recliner, declined all ADLs. OT educated pt on deep breathing with tasks. Pt completed BUEs in order to increase functional endurance and strength. Pt completed x20 reps elbow flexion, x12 reps shoulder flexion, and x15 reps front punch. Pt required rest breaks between each exercise. Min cues throughout task for deep breathing. Post OT session, pt seated upright in recliner, call light in reach and all needs met. Education OT Patient Education: Correct positioning, Energy conservation, Exercise program, Progress toward Goal/Update tx plan, Purpose of tx/functional activities Teaching Recipient: Patient Teaching Methods: Demonstration Response to Teaching: Return Demonstration OT Short Term Goals Short Term Goals Time Frame: May 18, 2019 Eatin Oral hygiene: 5 Toileting hygiene: 3 OT Hand Winder Goals Hand Winder Goals Time Frame: Jun 02, 2019 Eating (QC): 5 Oral Hygiene (QC): 5 Toileting Hygiene (QC): 4 Shower/Bathe Self (QC): 9 (Pt. reports that daughter assists her with bathing/dressing.) Upper Body Dressing (QC): 9 Lower Body Dressing (QC): 9 On/Off Footwear (QC): 9 Additional Goals: 1-Demonstrate ADL Tasks, 2-Verbalize Understanding, 3- ImproveStrength/Georges 1=Demonstrate adherence to instructed precautions during ADL tasks. 2=Patient will verbalize/demonstrate understanding of assistive devices/modifications for ADL. 3=Patient will improve strength/tolerance for activity to enable patient to perform ADL's. OT Education/Plan Problem List/Assessment Assessment: Decreased Activ Tolerance, Decreased UE Strength, Impaired I ADL's, Impaired Self-Care Skills Discharge Recommendations Plan/Recommendations: Continue POC Treatment Plan/Plan of Care Treatment,Training & Education: Yes Patient would benefit from OT for education, treatment and training to promote independence in ADL's, mobility, safety and/or upper extremity function for A DL's. Plan of Care: ADL Retraining, Functional Mobility, UE Funct Exercise/Act Treatment Duration: May 25, 2019 Frequency: 5 times per week Estimated Hrs Per Day: .25 hour per day Agreement: Yes Rehab Potential: Guarded Time/GCodes Start Time: 08:47 Stop Time: 08:55 Total Time Billed (hr/min): 8 Billed Treatment Time 1, EX KAELYN RUSSELL OT May 26, 2019 09:11
[2019-05-26] MEDS: RT-BUDESONIDE NEBS 0.5 MG/2ML (PULMICORT) AMP INH SCH (09:24)
[2019-05-26] MEDS ORDERED: CARV3.122 PO (12:06)
[2019-05-26] MEDS ORDERED: DIGO250T15 PO (12:06)
[2019-05-26] MEDS ORDERED: HYDR-3816 PO (12:06)
[2019-05-26] MEDS ORDERED: DILT30TA PO (12:06)
[2019-05-26] MEDS ORDERED: PANT40TA3 PO (12:06)
[2019-05-26 12:07] VITALS: BP 122/79
--- NOTE | 2019-05-26 12:08 | Discharge Inst-Skilled Nursing ---
Discharge Inst-Skilled NF Patient Instructions Patient Problems: CHF Rectus sheath hematoma Debility Consult/Follow Up/Orders Skilled NF Admit to: [facility] Certifications SNF I certify that SNF services are required to be given on an inpatient basis because of the above named patient's need for care home care on a continuing basis for the conditions(s) for which he/she was receiving inpatient hospital services prior to his/her transfer to the SNF. Fdc Facility Order: Nursing Services, Fabric Inspector-Evaluate & Treat, Physical Therapy-Evaluate & Treat Oxygen Delivery Method: Nasal Cannula Discharge Diet: Cardiac Diet Daily Activity as Tolerated: Yes New & Resume Previous Orders Pneu Vac Indicated: Yes Discharge Medications New, Converted or Re-Newed RX: RX on Chart New Medications: Carvedilol (Carvedilol) 3.125 Mg Tablet 3.125 MG PO BID, #60 TAB 0 Refills Digoxin (Digox) 250 Mcg Tablet 0.25 MG PO DAILY, #30 TAB 0 Refills Diltiazem HCl (Diltiazem HCl) 30 Mg Tablet 30 MG PO Q6HR, #120 TAB 0 Refills Pantoprazole Sodium (Pantoprazole Sodium) 40 Mg Tablet.dr 40 MG PO DAILY, #30 TAB 0 Refills Continued Medications: Acetaminophen (Tylenol) 325 Mg Tablet 650 MG PO Q4H PRN for PAIN-MILD (1-4), TAB Aspirin (Aspir 81) 81 Mg Tablet.dr 81 MG PO DAILY, TAB Atorvastatin Calcium (Atorvastatin Calcium) 10 Mg Tablet 10 MG PO DAILY, TAB Calcium Carbonate (Tums X-Str) 300 Mg Tab.chew 1 TAB.CHEW PO BID, TAB Fluticasone Propionate (Fluticasone Propionate) 16 Gm [place].susp 2 SPRAYS NS DAILY, SPRAY Furosemide (Lasix) 40 Mg Tablet 40 MG PO 0800,1200, TAB Hydrocodone/Acetaminophen (Hydrocodone-Acetamin 7.5-325) 1 Each Tablet 1 TAB PO Q6H PRN for PAIN-MODERATE (5-7), #30 TAB 0 Refills (This prescription has been renewed) Ipratropium/Albuterol Sulfate (Iprat-Albut 0.5-3(2.5) mg/3 ml) 3 Ml Ampul.neb 3 ML NEB Q6H PRN for SHORTNESS OF BREATH, EA Loperamide HCl (Loperamide) 2 Mg Capsule PO UD PRN for DIARRHEA, CAP Nystatin (Nystatin) 1 Each Powder.ea. TOP BID PRN for RASH, EA Sennosides/Docusate Sodium (Senna Plus Tablet) 1 Each Tablet 2 TAB PO DAILY PRN for CONSTIPATION-6TH LINE, TAB Umeclidinium Brm/Vilanterol Tr (Anoro Ellipta 62.5-25 Mcg INH) 1 Each Blst.w.dev 1 PUFF IH HS, INHALER Discontinued Medications: Verapamil HCl (Verapamil HCl) 80 Mg Tablet 80 MG PO TID, TAB HOLD IF BP <110 Teri Liao May 26, 2019 12:07 TERI LIAO MD May 26, 2019 12:08
--- NOTE | 2019-05-26 12:14 | NUR ---
"RD ASSESSMENT PMHx: afib; HTN; GERD; chronic constipation/diarrhea PT INTERACTION: Pt was semi-awake and pleasant during nutrition follow-up. Pt states she is eating okay since last assessment. Note avg PO intake of 87% x4d, per chart review. Pt states no recent issues with n/v/c/d since last assessment. Note last BM was 05/25 and pt not currently on bowel regimen, per chart review. ABNORMAL NUTRITION-RELATED LAB VALUES LOW: Cl 97; Ca 8.1 HIGH: glu 187; BUN 21 Est. kcal needs: 5631-5267 kcal | 15-18 kcal/kg Est. Pro needs: 102-128 g Pro | 0.8-1.0 g Pro/kg PES STATEMENT: Given pt's PO intake, no nutrition diagnosis at this time (NO-1.1) INTERVENTION: Continue with current diet order of DYS3 Advanced/Ground Meat diet. Will continue to follow and reassess as pt needs and status change. MONITOR/EVALUATE: PO Intake; Plan of Care; Hydration Status; Weight Status; Lab Values Clarence Aguirre, , RD, LD"
[2019-05-26 13:43] VITALS: BP 122/79
--- NOTE | 2019-05-26 14:11 | Discharge Summary ---
Discharge Summary Hospital Course Problems/Diagnosis: (1) Acute and chronic respiratory failure Status: Acute Assessment & Plan: 05/08: On Vapotherm, will titrate as possible, MAT protocol 05/09: Patient will be intubated for procedure and will have transfer to ICU after procedure 05/10: Patient required prolonged intubation following ICD placement, Dr Hull managing vent, appreciate recommendations 05/11: Will titrate to High flow NC if tolerated, improving 05/12: At baseline (2) Acute on chronic heart failure Status: Acute Assessment & Plan: 05/08: Cardiology consulted Qualifiers: Qualified Codes: I50.43 - Acute on chronic combined systolic (congestive) and diastolic (congestive) heart failure (3) Anasarca Status: Chronic Assessment & Plan: 05/09: Lasix BID, continue to monitor renal function 05/24 changed back to oral (4) Nonsustained ventricular tachycardia Status: Chronic Assessment & Plan: 05/08: Considering ICD placement during this admission 05/09: Plan for placement today 05/10: ICD successfully placed yesterday (5) Atrial fibrillation Status: Chronic Assessment & Plan: 05/08: Patient high fall risk with multiple falls and is not a good candidate for anticoagulation 05/22 cannot tolerate anticoagulation due to lifethreatening bleed Qualifiers: Qualified Codes: I48.0 - Paroxysmal atrial fibrillation (6) Volume overload Status: Acute Qualifiers: Qualified Codes: E87.70 - Fluid overload, unspecified (7) Debility Status: Acute (8) Abdominal wall hematoma Assessment & Plan: 05/22 Appears to be improving, monitor hemoglobin closely, has required transfusions this admission. Surgery consulted, no intervention recommended. Hemoglobin stable for several days prior to d/c (9) Discharge planning issues Assessment & Plan: Cannot function safely for home discharge at this time, looking into nursing facility. Hospital Course Date of Admission: May 04, 2019 at 16:08 Admission Diagnosis : Family Physician/Provider: Thelma Love DO Date of Discharge: 05/26/19 Discharge Diagnosis: See problem list Hospital Course: See problem list Labs and Pending Lab Test: Laboratory Tests 05/25/19 15:45: Glucometer 155H 05/25/19 20:40: Glucometer 254H 05/26/19 05:55: White Blood Count 7.0, Red Blood Count 2.93L, Hemoglobin 8.7L, Hematocrit 29L, Mean Corpuscular Volume 99, Mean Corpuscular Hemoglobin 30, Mean Corpuscular Hemoglobin Concent 30L, Red Cell Distribution Width 18.4H, Platelet Count 109L, Mean Platelet Volume 10.0 05/26/19 05:56: Glucometer 183H 05/26/19 11:02: Glucometer 205H 05/26/19 12:38: Glucometer 152H Microbiology 05/16/19 Blood Culture - Final, Complete No growth 05/09/19 Gram Stain - Final, Complete 05/09/19 Sputum Culture - Final, Complete Usual upper respiratory leatha Home Meds Active Pantoprazole Sodium 40 Mg Tablet.dr 40 Mg PO DAILY Diltiazem HCl 30 Mg Tablet 30 Mg PO Q6HR Carvedilol 3.125 Mg Tablet 3.125 Mg PO BID Digox (Digoxin) 250 Mcg Tablet 0.25 Mg PO DAILY Hydrocodone-Acetamin 7.5-325 (Hydrocodone/Acetaminophen) 1 Each Tablet 1 Tab PO Q6H PRN Reported Fluticasone Propionate 16 Gm [place].susp 2 Sprays NS DAILY Atorvastatin Calcium 10 Mg Tablet 10 Mg PO DAILY Tums X-Str (Calcium Carbonate) 300 Mg Tab.chew 1 Tab.chew PO BID Anoro Ellipta 62.5-25 Mcg INH (Umeclidinium Brm/Vilanterol Tr) 1 Each Blst.w.dev 1 Puff IH HS Iprat-Albut 0.5-3(2.5) mg/3 ml (Ipratropium/Albuterol Sulfate) 3 Ml Ampul.neb 3 Ml NEB Q6H PRN Nystatin 1 Each Powder.ea. TOP BID PRN Loperamide (Loperamide HCl) 2 Mg Capsule PO UD PRN Tylenol (Acetaminophen) 325 Mg Tablet 650 Mg PO Q4H PRN Lasix (Furosemide) 40 Mg Tablet 40 Mg PO 0800,1200 Senna Plus Tablet (Sennosides/Docusate Sodium) 1 Each Tablet 2 Tab PO DAILY PRN Aspir 81 (Aspirin) 81 Mg Tablet.dr 81 Mg PO DAILY Assessment/Pt DC Instructions See d/c instruction document. Orders-Post D/C & Referrals Pneu Vac Indicated: Yes Discharge Physical Examination Allergies: Coded Allergies: bee venom protein (honey bee) (Verified Allergy, Unknown, 05/04/19) General Appearance: No Apparent Distress Skin: Ecchymosis Neurologic/Psychiatric: Alert, Normal Mood/Affect Copy Copies To 1: Renate Estrada APRN Discharge Summary Date of Admission May 04, 2019 at 16:08 Date of Discharge May 26, 2019 at 13:49 Discharge Date: May 26, 2019 Admission Diagnosis Assessment: Respiratory failure Respiratory acidosis Hypercapnia CHF acute on chronic Edema/anasarca Plan: Transfer to ICU Need intubation or biPAP trial Prognosis poor Discharge Diagnosis (1) Acute on chronic heart failure Status: Acute Qualifiers: Qualified Codes: I50.43 - Acute on chronic combined systolic (congestive) and diastolic (congestive) heart failure (2) Transfusion of blood during current hospitalization (3) Poor prognosis (4) Abdominal wall hematoma (5) Debility Status: Acute (6) S/P ICD (internal cardiac defibrillator) procedure (7) Atrial fibrillation Status: Chronic Qualifiers: Qualified Codes: I48.0 - Paroxysmal atrial fibrillation (8) Anasarca Status: Chronic (9) Acute and chronic respiratory failure Status: Acute (10) CO2 narcosis Clinical Quality Measures DVT/VTE Risk/Contraindication: Risk Factor Score Per Nursin RFS Level Per Nursing on Admit: 4+=Very High TERI LIGHT MD May 26, 2019 14:10
--- NOTE | 2019-05-26 17:51 | Cardiology Progress Note ---
Cardiology SOAP Progress Note Subjective: No cardiac complaints. Objective: I&O/Vital Signs 05/26/19 05/26/19 05/26/19 05/26/19 06:53 08:00 08:48 09:22 Temp 36.0 36.0 Pulse 94 83 Resp 22 B/P (MAP) 108/72 (84) Pulse Ox 95 93 92 O2 Delivery High Flow N/C Room Air Nasal Cannula O2 Flow Rate 2.50 2.50 3.00 FiO2 32 05/26/19 05/26/19 05/26/19 09:27 12:07 13:43 Temp 36.6 36.6 Pulse 96 96 Resp 18 18 B/P (MAP) 122/79 (93) 122/79 Pulse Ox 97 100 100 O2 Delivery High Flow N/C High Flow N/C O2 Flow Rate 2.50 2.50 05/26/19 00:00 Intake Total 830 ml Output Total 2025 ml Balance -1195 ml Bruising: large amount of bruising Constitutional: appears stated age, AAO x 3; No apparent distress; well-develo ped, well-nourished Respiratory: chest is bilaterally symmetric, lungs clear to auscultation Cardiovascular: regular rate-rhythm, S1 and S2, other (significant bruising left upper chest.) Gastrointestional: soft, distended, audible bowel sounds; No spleenomegaly Extremities: normal range of motion, non-tender, normal inspection, pedal edema; No clubbing, No cyanosis, No significant edema Neurologic/Psychiatric: no motor/sensory deficits, alert, normal mood/affect, oriented x 3 Skin: normal color, warm/dry; No rash, No ulcerations Results/Procedures: Labs Laboratory Tests 05/25/19 20:40: Glucometer 254H 05/26/19 05:55: White Blood Count 7.0, Red Blood Count 2.93L, Hemoglobin 8.7L, Hematocrit 29L, Mean Corpuscular Volume 99, Mean Corpuscular Hemoglobin 30, Mean Corpuscular He moglobin Concent 30L, Red Cell Distribution Width 18.4H, Platelet Count 109L, Mean Platelet Volume 10.0 05/26/19 05:56: Glucometer 183H 05/26/19 11:02: Glucometer 205H 05/26/19 12:38: Glucometer 152H Microbiology 05/16/19 Blood Culture - Final, Complete No growth 05/09/19 Gram Stain - Final, Complete 05/09/19 Sputum Culture - Final, Complete Usual upper respiratory leatha A/P: Assessment/Dx: sustained VT, status post ICD Syncope, Idiopathic VT, PAF Plan: Numerous episodes of sustained VT on ILR interrogation with duration > 30 seconds, working diagnosis of idiopathic VT. Echocardiogram done 04/2019 showed normal LV function. Negative Cath in 12/2018. Dual-chamber ICD placed on 05/09/2019. Implantable loop recorder was removed as well. Patient tolerated procedure well and did not have any complication. Postprocedure chest x-ray did not show any pneumothorax. Device interrogation was within normal limits. Antibiotic course completed. Significant bruising noted in the left upper extremity and the left upper chest as well as the groin. Likely pocket hematoma as well. Patient was on high-dose Lovenox which has been changed to DVT prophylaxis dose on 05/15/2019. No further bleeding. The dressing was changed on 05/16/2019. No further soaking of the dressing. Dressing was changed 05/23/2019. Bruising still present however the area is very soft with no evidence of further bleeding. Likely small pocket hematoma which is resolving gradually. Patient received transfusion due to bleeding/anemia. Syncope, likely secondary to sustained VT. Idiopathic VT, on verapamil. PAF, oral anticoagulation therapy contraindicated due to significant bleeding and anemia. Cardizem for rate control. Severe obstructive and restrictive lung disease, Defer to Dr. Hull and the primary team. Anemia, significant blood loss, have bruising over her chest, abdomen and her arms, received blood transfusion, currently off Lovenox. Continue to monitor Paroxysmal atrial fibrillation, controlled ventricular rate, by mouth Cardizem. Cannot take anticoagulation at this time, heart rate is better. Continue to monitor Debility, generalized weakness, PT/OT on case High risk of stroke, pacemaker site and left arm has significant bruising, the bruising is getting better. Congestive heart failure, acute on chronic left ventricular diastolic dysfunction, hypertensive heart disease. Continue to monitor Cardiac catheterization was done in December 2018 in [facility] and reported having nonobstructive coronary artery disease Paroxysmal atrial fibrillation, had history of recurrent falls with severe consequences, she was not considered a candidate for oral anticoagulation, continue with physical therapy for strengthening and improving gait Type II myocardial infarction, probably secondary to hypoxemia, mild elevation in troponin, had a cardiac catheterization on January 11, 2019 in [facility] and reported normal coronaries. Continue to monitor Peripheral edema, improving slowly Hypertension, monitor blood pressure Hyperlipidemia, monitor lipids Morbid obesity. Follow-up with Dr. Maldonado for cardiology. Follow-up with Dr. Ward for electrophysiology. Thank you for your consultation. Please call me if you have any questions. John Ward MD, FACP, FACC, FSCAI, FHRS, CCDS Interventional Cardiology Cardiac Electrophysiology Vascular Medicine and Endovascular Interventions Winston WARD MD May 26, 2019 17:51
--- OUTSIDE RECORDS SUMMARY | 2019-05-30 19:47 | XMS REPORT | Continuity of Care Document ---
Author Organization Unknown Address Unknown Phone Unavailable Allergies Active Description Code Type Severity Reaction Onset Reported/Identified Relationship to Patient Clinical Status Yes bee venom protein (honey bee) [id number] Drug Allergy Unknown N/A 05/04/2019 Medications There is no data. Problems Date Dx Coded Attending Type Code Diagnosis Diagnosed By 05/08/2019 TERI LIGHT MD, Ot D64 .9 ANEMIA, UNSPECIFIED 05/08/2019 TERI LIGHT MD, Ot E66 .2 MORBID (SEVERE) OBESITY WITH ALVEOLAR HY 05/08/2019 TERI LIGHT MD, Ot E78 .5 HYPERLIPIDEMIA, UNSPECIFIED 05/08/2019 TERI LIGHT MD, Ot E87 .2 ACIDOSIS 05/08/2019 TERI LIGHT MD, Ot I11 .0 HYPERTENSIVE HEART DISEASE WITH HEART FA 05/08/2019 TERI LIGHT MD, Ot I21.A1 MYOCARDIAL INFARCTION TYPE 2 05/08/2019 TERI LIGHT MD Ot I48.91 UNSPECIFIED ATRIAL FIBRILLATION 05/08/2019 TERI LIGHT MD, Ot I50.23 ACUTE ON CHRONIC SYSTOLIC (CONGESTIVE) H 05/08/2019 TERI LIGHT MD, Ot I95 .9 HYPOTENSION, UNSPECIFIED 05/08/2019 TERI LIGHT MD, Ot J44 .1 CHRONIC OBSTRUCTIVE PULMONARY DISEASE W 05/08/2019 TERI LIGHT MD, Ot J96.22 ACUTE AND CHRONIC RESPIRATORY FAILURE [place] 05/08/2019 TERI LIGHT MD, Ot K21 .9 GASTRO-ESOPHAGEAL REFLUX DISEASE WITHOUT 05/08/2019 TERI LIGHT MD, Ot R60 .1 GENERALIZED EDEMA 05/08/2019 TERI LIGHT MD, Ot Z68.42 BODY MASS INDEX (BMI) 45.0-49.9, ADULT 05/08/2019 TERI LIGHT MD, Ot Z87.891 PERSONAL HISTORY OF NICOTINE DEPENDENCE 05/08/2019 TERI LIGHT MD, Ot Z96.653 PRESENCE OF ARTIFICIAL KNEE JOINT, BILAT 05/08/2019 TERI LIGHT MD Ot Z99.81 DEPENDENCE ON SUPPLEMENTAL OXYGEN 05/09/2019 TERI LIGHT MD Ot D64 .9 ANEMIA, UNSPECIFIED 05/09/2019 TERI LIGHT MD Ot E66 .2 MORBID (SEVERE) OBESITY WITH ALVEOLAR HY 05/09/2019 TERI LIGHT MD Ot E78 .5 HYPERLIPIDEMIA, UNSPECIFIED 05/09/2019 TERI LIGHT MD Ot E87 .2 ACIDOSIS 05/09/2019 TERI LIGHT MD Ot I11 .0 HYPERTENSIVE HEART DISEASE WITH HEART FA 05/09/2019 TERI LIGHT MD Ot I21.A1 MYOCARDIAL INFARCTION TYPE 2 05/09/2019 TERI LIGHT MD Ot I48.91 UNSPECIFIED ATRIAL FIBRILLATION 05/09/2019 TERI LIGHT MD Ot I50.23 ACUTE ON CHRONIC SYSTOLIC (CONGESTIVE) H 05/09/2019 TERI LIGHT MD Ot I95 .9 HYPOTENSION, UNSPECIFIED 05/09/2019 TERI LIGHT MD, Ot J44 .1 CHRONIC OBSTRUCTIVE PULMONARY DISEASE W 05/09/2019 TERI LIGHT MD Ot J96.22 ACUTE AND CHRONIC RESPIRATORY FAILURE [place] 05/09/2019 TERI LIGHT MD Ot K21 .9 GASTRO-ESOPHAGEAL REFLUX DISEASE WITHOUT 05/09/2019 TERI LIGHT MD Ot R60 .1 GENERALIZED EDEMA 05/09/2019 TERI LIGHT MD, Ot Z68.42 BODY MASS INDEX (BMI) 45.0-49.9, ADULT 05/09/2019 TERI LIGHT MD Ot Z87.891 PERSONAL HISTORY OF NICOTINE DEPENDENCE 05/09/2019 TERI LIGHT MD, Ot Z96.653 PRESENCE OF ARTIFICIAL KNEE JOINT, BILAT 05/09/2019 TERI LIGHT MD Ot Z99.81 DEPENDENCE ON SUPPLEMENTAL OXYGEN 05/09/2019 TERI LIGHT MD Ot D64 .9 ANEMIA, UNSPECIFIED 05/09/2019 TERI LIGHT MD Ot E66 .2 MORBID (SEVERE) OBESITY WITH ALVEOLAR HY 05/09/2019 TERI LIGHT MD Ot E78 .5 HYPERLIPIDEMIA, UNSPECIFIED 05/09/2019 TERI LIGHT MD Ot E87 .2 ACIDOSIS 05/09/2019 TERI LIGHT MD Ot I11 .0 HYPERTENSIVE HEART DISEASE WITH HEART FA 05/09/2019 TERI LIGHT MD Ot I21.A1 MYOCARDIAL INFARCTION TYPE 2 05/09/2019 TERI LIGHT MD Ot I48.91 UNSPECIFIED ATRIAL FIBRILLATION 05/09/2019 TERI LIGHT MD Ot I50.23 ACUTE ON CHRONIC SYSTOLIC (CONGESTIVE) H 05/09/2019 TERI LIGHT MD, Ot I95 .9 HYPOTENSION, UNSPECIFIED 05/09/2019 TERI LIGHT MD, Ot J44 .1 CHRONIC OBSTRUCTIVE PULMONARY DISEASE W 05/09/2019 TERI LIGHT MD, Ot J96.22 ACUTE AND CHRONIC RESPIRATORY FAILURE [place] 05/09/2019 TERI LIGHT MD Ot K21 .9 GASTRO-ESOPHAGEAL REFLUX DISEASE WITHOUT 05/09/2019 TERI LIGHT MD Ot R60 .1 GENERALIZED EDEMA 05/09/2019 TERI LIGHT MD Ot Z68.42 BODY MASS INDEX (BMI) 45.0-49.9, ADULT 05/09/2019 TERI LIGHT MD, Ot Z87.891 PERSONAL HISTORY OF NICOTINE DEPENDENCE 05/09/2019 TERI LIGHT MD, Ot Z96.653 PRESENCE OF ARTIFICIAL KNEE JOINT, BILAT 05/09/2019 TERI LIGHT MD Ot Z99.81 DEPENDENCE ON SUPPLEMENTAL OXYGEN 05/09/2019 TERI LIGHT MD Ot D64 .9 ANEMIA, UNSPECIFIED 05/09/2019 TERI LIGHT MD Ot E66 .2 MORBID (SEVERE) OBESITY WITH ALVEOLAR HY 05/09/2019 TERI LIGHT MD Ot E78 .5 HYPERLIPIDEMIA, UNSPECIFIED 05/09/2019 TERI LIGHT MD Ot E87 .2 ACIDOSIS 05/09/2019 TERI LIGHT MD Ot I11 .0 HYPERTENSIVE HEART DISEASE WITH HEART FA 05/09/2019 TERI LIGHT MD Ot I21.A1 MYOCARDIAL INFARCTION TYPE 2 05/09/2019 TERI LIGHT MD Ot I48.91 UNSPECIFIED ATRIAL FIBRILLATION 05/09/2019 TERI LIGHT MD, Ot I50.23 ACUTE ON CHRONIC SYSTOLIC (CONGESTIVE) H 05/09/2019 TERI LIGHT MD Ot I95 .9 HYPOTENSION, UNSPECIFIED 05/09/2019 TERI LIGHT MD, Ot J44 .1 CHRONIC OBSTRUCTIVE PULMONARY DISEASE W 05/09/2019 TERI LIGHT MD Ot J96.22 ACUTE AND CHRONIC RESPIRATORY FAILURE [place] 05/09/2019 TERI LIGHT MD Ot K21 .9 GASTRO-ESOPHAGEAL REFLUX DISEASE WITHOUT 05/09/2019 TERI LIGHT MD Ot R60 .1 GENERALIZED EDEMA 05/09/2019 TERI LIGHT MD, Ot Z68.42 BODY MASS INDEX (BMI) 45.0-49.9, ADULT 05/09/2019 TERI LIGHT MD, Ot Z87.891 PERSONAL HISTORY OF NICOTINE DEPENDENCE 05/09/2019 TERI LIGHT MD, Ot Z96.653 PRESENCE OF ARTIFICIAL KNEE JOINT, BILAT 05/09/2019 TERI LIGHT MD Ot Z99.81 DEPENDENCE ON SUPPLEMENTAL OXYGEN 05/10/2019 TERI LIGHT MD, Ot D64 .9 ANEMIA, UNSPECIFIED 05/10/2019 TERI LIGHT MD, Ot E66 .2 MORBID (SEVERE) OBESITY WITH ALVEOLAR HY 05/10/2019 TERI LIGHT MD, Ot E78 .5 HYPERLIPIDEMIA, UNSPECIFIED 05/10/2019 TERI LIGHT MD Ot E87 .2 ACIDOSIS 05/10/2019 TERI LIGHT MD Ot I11 .0 HYPERTENSIVE HEART DISEASE WITH HEART FA 05/10/2019 TERI LIGHT MD, Ot I21.A1 MYOCARDIAL INFARCTION TYPE 2 05/10/2019 TERI LIGHT MD Ot I48.91 UNSPECIFIED ATRIAL FIBRILLATION 05/10/2019 TERI LIGHT MD Ot I50.23 ACUTE ON CHRONIC SYSTOLIC (CONGESTIVE) H 05/10/2019 TERI LIGHT MD Ot I95 .9 HYPOTENSION, UNSPECIFIED 05/10/2019 TERI LIGHT MD, Ot J44 .1 CHRONIC OBSTRUCTIVE PULMONARY DISEASE W 05/10/2019 TERI LIGHT MD Ot J96.22 ACUTE AND CHRONIC RESPIRATORY FAILURE WI 05/10/2019 TERI LIGHT MD, Ot K21 .9 GASTRO-ESOPHAGEAL REFLUX DISEASE WITHOUT 05/10/2019 TERI LIGHT MD, Ot R60 .1 GENERALIZED EDEMA 05/10/2019 TERI LIGHT MD, Ot Z68.42 BODY MASS INDEX (BMI) 45.0-49.9, ADULT 05/10/2019 TERI LIGHT MD, Ot Z87.891 PERSONAL HISTORY OF NICOTINE DEPENDENCE 05/10/2019 TERI LIGHT MD, Ot Z96.653 PRESENCE OF ARTIFICIAL KNEE JOINT, BILAT 05/10/2019 TERI LIGHT MD, Ot Z99.81 DEPENDENCE ON SUPPLEMENTAL OXYGEN 05/10/2019 TERI LIGHT MD, Ot D64 .9 ANEMIA, UNSPECIFIED 05/10/2019 TERI LIGHT MD, Ot E66 .2 MORBID (SEVERE) OBESITY WITH ALVEOLAR HY 05/10/2019 TERI LIGHT MD, Ot E78 .5 HYPERLIPIDEMIA, UNSPECIFIED 05/10/2019 TERI LIGHT MD, Ot E87 .2 ACIDOSIS 05/10/2019 TERI LIGHT MD, Ot I11 .0 HYPERTENSIVE HEART DISEASE WITH HEART FA 05/10/2019 TERI LIGHT MD, Ot I21.A1 MYOCARDIAL INFARCTION TYPE 2 05/10/2019 TERI LIGHT MD, Ot I48.91 UNSPECIFIED ATRIAL FIBRILLATION 05/10/2019 TERI LIGHT MD, Ot I50.23 ACUTE ON CHRONIC SYSTOLIC (CONGESTIVE) H 05/10/2019 TERI LIGHT MD, Ot I95 .9 HYPOTENSION, UNSPECIFIED 05/10/2019 TERI LIGHT MD, Ot J44 .1 CHRONIC OBSTRUCTIVE PULMONARY DISEASE W 05/10/2019 TERI LIGHT MD, Ot J96.22 ACUTE AND CHRONIC RESPIRATORY FAILURE WI 05/10/2019 TERI LIGHT MD, Ot K21 .9 GASTRO-ESOPHAGEAL REFLUX DISEASE WITHOUT 05/10/2019 TERI LIGHT MD, Ot R60 .1 GENERALIZED EDEMA 05/10/2019 TERI LIGHT MD, Ot Z68.42 BODY MASS INDEX (BMI) 45.0-49.9, ADULT 05/10/2019 TERI LIGHT MD, Ot Z87.891 PERSONAL HISTORY OF NICOTINE DEPENDENCE 05/10/2019 TERI LIGHT MD, Ot Z96.653 PRESENCE OF ARTIFICIAL KNEE JOINT, BILAT 05/10/2019 TERI LIGHT MD Ot Z99.81 DEPENDENCE ON SUPPLEMENTAL OXYGEN 05/11/2019 TERI LIGHT MD Ot D64 .9 ANEMIA, UNSPECIFIED 05/11/2019 TERI LIGHT MD Ot E66 .2 MORBID (SEVERE) OBESITY WITH ALVEOLAR HY 05/11/2019 TERI LIGHT MD Ot E78 .5 HYPERLIPIDEMIA, UNSPECIFIED 05/11/2019 TERI LIGHT MD Ot E87 .2 ACIDOSIS 05/11/2019 TERI LIGHT MD Ot I11 .0 HYPERTENSIVE HEART DISEASE WITH HEART FA 05/11/2019 TERI LIGHT MD Ot I21.A1 MYOCARDIAL INFARCTION TYPE 2 05/11/2019 TERI LIGHT MD Ot I48.91 UNSPECIFIED ATRIAL FIBRILLATION 05/11/2019 TERI LIGHT MD Ot I50.23 ACUTE ON CHRONIC SYSTOLIC (CONGESTIVE) H 05/11/2019 TERI LIGHT MD Ot I95 .9 HYPOTENSION, UNSPECIFIED 05/11/2019 TERI LIGHT MD Ot J44 .1 CHRONIC OBSTRUCTIVE PULMONARY DISEASE W 05/11/2019 TERI LIGHT MD, Ot J96.22 ACUTE AND CHRONIC RESPIRATORY FAILURE [place] 05/11/2019 TERI LIGHT MD Ot K21 .9 GASTRO-ESOPHAGEAL REFLUX DISEASE WITHOUT 05/11/2019 TERI LIGHT MD Ot R60 .1 GENERALIZED EDEMA 05/11/2019 TERI LIGHT MD Ot Z68.42 BODY MASS INDEX (BMI) 45.0-49.9, ADULT 05/11/2019 TERI LIGHT MD, Ot Z87.891 PERSONAL HISTORY OF NICOTINE DEPENDENCE 05/11/2019 TERI LIGHT MD Ot Z96.653 PRESENCE OF ARTIFICIAL KNEE JOINT, BILAT 05/11/2019 TERI LIGHT MD Ot Z99.81 DEPENDENCE ON SUPPLEMENTAL OXYGEN 05/11/2019 TERI LIGHT MD Ot D64 .9 ANEMIA, UNSPECIFIED 05/11/2019 TERI LIGHT MD Ot E66 .2 MORBID (SEVERE) OBESITY WITH ALVEOLAR HY 05/11/2019 TERI LIGHT MD, Ot E78 .5 HYPERLIPIDEMIA, UNSPECIFIED 05/11/2019 TERI LIGHT MD Ot E87 .2 ACIDOSIS 05/11/2019 TERI LIGHT MD, Ot I11 .0 HYPERTENSIVE HEART DISEASE WITH HEART FA 05/11/2019 TERI LIGHT MD, Ot I21.A1 MYOCARDIAL INFARCTION TYPE 2 05/11/2019 TERI LIGHT MD Ot I48.91 UNSPECIFIED ATRIAL FIBRILLATION 05/11/2019 TERI LIGHT MD Ot I50.23 ACUTE ON CHRONIC SYSTOLIC (CONGESTIVE) H 05/11/2019 TERI LIGHT MD, Ot I95 .9 HYPOTENSION, UNSPECIFIED 05/11/2019 TERI ILGHT MD, Ot J44 .1 CHRONIC OBSTRUCTIVE PULMONARY DISEASE W 05/11/2019 TERI LIGHT MD, Ot J96.22 ACUTE AND CHRONIC RESPIRATORY FAILURE [place] 05/11/2019 TERI LIGHT MD, Ot K21 .9 GASTRO-ESOPHAGEAL REFLUX DISEASE WITHOUT 05/11/2019 TERI LIGHT MD Ot R60 .1 GENERALIZED EDEMA 05/11/2019 TERI LIGHT MD, Ot Z68.42 BODY MASS INDEX (BMI) 45.0-49.9, ADULT 05/11/2019 TERI LIGHT MD, Ot Z87.891 PERSONAL HISTORY OF NICOTINE DEPENDENCE 05/11/2019 TERI LIGHT MD, Ot Z96.653 PRESENCE OF ARTIFICIAL KNEE JOINT, BILAT 05/11/2019 TERI LIGHT MD Ot Z99.81 DEPENDENCE ON SUPPLEMENTAL OXYGEN 05/12/2019 TERI LIGHT MD, Ot D64 .9 ANEMIA, UNSPECIFIED 05/12/2019 TERI LIGHT MD Ot E66 .2 MORBID (SEVERE) OBESITY WITH ALVEOLAR HY 05/12/2019 TERI LIGHT MD, Ot E78 .5 HYPERLIPIDEMIA, UNSPECIFIED 05/12/2019 TERI LIGHT MD Ot E87 .2 ACIDOSIS 05/12/2019 TERI LIGHT MD Ot I11 .0 HYPERTENSIVE HEART DISEASE WITH HEART FA 05/12/2019 TERI LIGHT MD Ot I21.A1 MYOCARDIAL INFARCTION TYPE 2 05/12/2019 TERI LIGHT MD Ot I48.91 UNSPECIFIED ATRIAL FIBRILLATION 05/12/2019 TERI LIGHT MD Ot I50.23 ACUTE ON CHRONIC SYSTOLIC (CONGESTIVE) H 05/12/2019 TERI LIGHT MD Ot I95 .9 HYPOTENSION, UNSPECIFIED 05/12/2019 TERI LIGHT MD, Ot J44 .1 CHRONIC OBSTRUCTIVE PULMONARY DISEASE W 05/12/2019 TERI LIGHT MD Ot J96.22 ACUTE AND CHRONIC RESPIRATORY FAILURE [place] 05/12/2019 TERI LIGHT MD Ot K21 .9 GASTRO-ESOPHAGEAL REFLUX DISEASE WITHOUT 05/12/2019 TERI LIGHT MD Ot R60 .1 GENERALIZED EDEMA 05/12/2019 TERI LIGHT MD, Ot Z68.42 BODY MASS INDEX (BMI) 45.0-49.9, ADULT 05/12/2019 TERI LIGHT MD, Ot Z87.891 PERSONAL HISTORY OF NICOTINE DEPENDENCE 05/12/2019 TERI LIGHT MD, Ot Z96.653 PRESENCE OF ARTIFICIAL KNEE JOINT, BILAT 05/12/2019 TERI LIGHT MD Ot Z99.81 DEPENDENCE ON SUPPLEMENTAL OXYGEN 05/12/2019 TERI LIGHT MD, Ot D64 .9 ANEMIA, UNSPECIFIED 05/12/2019 TERI LIGHT MD, Ot E66 .2 MORBID (SEVERE) OBESITY WITH ALVEOLAR HY 05/12/2019 TERI LIGHT MD, Ot E78 .5 HYPERLIPIDEMIA, UNSPECIFIED 05/12/2019 TERI LIGHT MD, Ot E87 .2 ACIDOSIS 05/12/2019 TERI LIGHT MD Ot I11 .0 HYPERTENSIVE HEART DISEASE WITH HEART FA 05/12/2019 TERI LIGHT MD, Ot I21.A1 MYOCARDIAL INFARCTION TYPE 2 05/12/2019 TERI LIGHT MD Ot I48.91 UNSPECIFIED ATRIAL FIBRILLATION 05/12/2019 TERI LIGHT MD Ot I50.23 ACUTE ON CHRONIC SYSTOLIC (CONGESTIVE) H 05/12/2019 TERI LIGHT MD Ot I95 .9 HYPOTENSION, UNSPECIFIED 05/12/2019 TERI LIGHT MD, Ot J44 .1 CHRONIC OBSTRUCTIVE PULMONARY DISEASE W 05/12/2019 TERI LIGHT MD Ot J96.22 ACUTE AND CHRONIC RESPIRATORY FAILURE [place] 05/12/2019 TERI LIGHT MD, Ot K21 .9 GASTRO-ESOPHAGEAL REFLUX DISEASE WITHOUT 05/12/2019 TERI LIGHT MD, Ot R60 .1 GENERALIZED EDEMA 05/12/2019 TERI LIGHT MD, Ot Z68.42 BODY MASS INDEX (BMI) 45.0-49.9, ADULT 05/12/2019 TERI LIGHT MD, Ot Z87.891 PERSONAL HISTORY OF NICOTINE DEPENDENCE 05/12/2019 TERI LIGHT MD, Ot Z96.653 PRESENCE OF ARTIFICIAL KNEE JOINT, BILAT 05/12/2019 TERI LIGHT MD Ot Z99.81 DEPENDENCE ON SUPPLEMENTAL OXYGEN 05/13/2019 TERI LIGHT MD, Ot D64 .9 ANEMIA, UNSPECIFIED 05/13/2019 TERI LIGHT MD Ot E66 .2 MORBID (SEVERE) OBESITY WITH ALVEOLAR HY 05/13/2019 TERI LIGHT MD Ot E78 .5 HYPERLIPIDEMIA, UNSPECIFIED 05/13/2019 TERI LIGHT MD Ot E87 .2 ACIDOSIS 05/13/2019 TERI LIGHT MD Ot I11 .0 HYPERTENSIVE HEART DISEASE WITH HEART FA 05/13/2019 TERI LIGHT MD, Ot I21.A1 MYOCARDIAL INFARCTION TYPE 2 05/13/2019 TERI LIGHT MD Ot I48.91 UNSPECIFIED ATRIAL FIBRILLATION 05/13/2019 TERI LIGHT MD Ot I50.23 ACUTE ON CHRONIC SYSTOLIC (CONGESTIVE) H 05/13/2019 TERI LIGHT MD Ot I95 .9 HYPOTENSION, UNSPECIFIED 05/13/2019 TERI LIGHT MD, Ot J44 .1 CHRONIC OBSTRUCTIVE PULMONARY DISEASE W 05/13/2019 TERI LIGHT MD, Ot J96.22 ACUTE AND CHRONIC RESPIRATORY FAILURE [place] 05/13/2019 TERI LIGHT MD, Ot K21 .9 GASTRO-ESOPHAGEAL REFLUX DISEASE WITHOUT 05/13/2019 TERI LIGHT MD Ot R60 .1 GENERALIZED EDEMA 05/13/2019 TERI LIGHT MD, Ot Z68.42 BODY MASS INDEX (BMI) 45.0-49.9, ADULT 05/13/2019 TERI LIGHT MD, Ot Z87.891 PERSONAL HISTORY OF NICOTINE DEPENDENCE 05/13/2019 TERI LIGHT MD Ot Z96.653 PRESENCE OF ARTIFICIAL KNEE JOINT, BILAT 05/13/2019 TERI LIGHT MD Ot Z99.81 DEPENDENCE ON SUPPLEMENTAL OXYGEN 05/14/2019 TERI LIGHT MD Ot D64 .9 ANEMIA, UNSPECIFIED 05/14/2019 TERI LIGHT MD Ot E66 .2 MORBID (SEVERE) OBESITY WITH ALVEOLAR HY 05/14/2019 TERI LIGHT MD Ot E78 .5 HYPERLIPIDEMIA, UNSPECIFIED 05/14/2019 TERI LIGHT MD Ot E87 .2 ACIDOSIS 05/14/2019 TERI LIGHT MD Ot I11 .0 HYPERTENSIVE HEART DISEASE WITH HEART FA 05/14/2019 TERI LIGHT MD Ot I21.A1 MYOCARDIAL INFARCTION TYPE 2 05/14/2019 TERI LIGHT MD Ot I48.91 UNSPECIFIED ATRIAL FIBRILLATION 05/14/2019 TERI LIGHT MD Ot I50.23 ACUTE ON CHRONIC SYSTOLIC (CONGESTIVE) H 05/14/2019 TERI LIGHT MD Ot I95 .9 HYPOTENSION, UNSPECIFIED 05/14/2019 TERI LIGHT MD, Ot J44 .1 CHRONIC OBSTRUCTIVE PULMONARY DISEASE W 05/14/2019 TERI LIGHT MD Ot J96.22 ACUTE AND CHRONIC RESPIRATORY FAILURE [place] 05/14/2019 TERI LIGHT MD Ot K21 .9 GASTRO-ESOPHAGEAL REFLUX DISEASE WITHOUT 05/14/2019 TERI LIGHT MD Ot R60 .1 GENERALIZED EDEMA 05/14/2019 TERI LIGHT MD Ot Z68.42 BODY MASS INDEX (BMI) 45.0-49.9, ADULT 05/14/2019 TERI LIGHT MD Ot Z87.891 PERSONAL HISTORY OF NICOTINE DEPENDENCE 05/14/2019 TERI LIGHT MD Ot Z96.653 PRESENCE OF ARTIFICIAL KNEE JOINT, BILAT 05/14/2019 TERI LIGHT MD Ot Z99.81 DEPENDENCE ON SUPPLEMENTAL OXYGEN 05/15/2019 TERI LIGHT MD Ot D64 .9 ANEMIA, UNSPECIFIED 05/15/2019 TERI LIGHT MD Ot E66 .2 MORBID (SEVERE) OBESITY WITH ALVEOLAR HY 05/15/2019 TERI LIGHT MD Ot E78 .5 HYPERLIPIDEMIA, UNSPECIFIED 05/15/2019 TERI LIGHT MD Ot E87 .2 ACIDOSIS 05/15/2019 TERI LIGHT MD Ot I11 .0 HYPERTENSIVE HEART DISEASE WITH HEART FA 05/15/2019 TERI LIGHT MD Ot I21.A1 MYOCARDIAL INFARCTION TYPE 2 05/15/2019 TERI LIGHT MD Ot I48.91 UNSPECIFIED ATRIAL FIBRILLATION 05/15/2019 TERI LIGHT MD Ot I50.23 ACUTE ON CHRONIC SYSTOLIC (CONGESTIVE) H 05/15/2019 TERI LIGHT MD Ot I95 .9 HYPOTENSION, UNSPECIFIED 05/15/2019 TERI LIGHT MD, Ot J44 .1 CHRONIC OBSTRUCTIVE PULMONARY DISEASE W 05/15/2019 TERI LIGHT MD Ot J96.22 ACUTE AND CHRONIC RESPIRATORY FAILURE WI 05/15/2019 TERI ILGHT MD Ot K21 .9 GASTRO-ESOPHAGEAL REFLUX DISEASE WITHOUT 05/15/2019 TERI LIGHT MD Ot R60 .1 GENERALIZED EDEMA 05/15/2019 TERI LIGHT MD Ot Z68.42 BODY MASS INDEX (BMI) 45.0-49.9, ADULT 05/15/2019 TERI LIGHT MD Ot Z87.891 PERSONAL HISTORY OF NICOTINE DEPENDENCE 05/15/2019 TERI LIGHT MD Ot Z96.653 PRESENCE OF ARTIFICIAL KNEE JOINT, BILAT 05/15/2019 TERI LIGHT MD Ot Z99.81 DEPENDENCE ON SUPPLEMENTAL OXYGEN 05/15/2019 TERI LIGHT MD Ot D64 .9 ANEMIA, UNSPECIFIED 05/15/2019 TERI LIGHT MD Ot E66 .2 MORBID (SEVERE) OBESITY WITH ALVEOLAR HY 05/15/2019 TERI LIGHT MD Ot E78 .5 HYPERLIPIDEMIA, UNSPECIFIED 05/15/2019 TERI LIGHT MD Ot E87 .2 ACIDOSIS 05/15/2019 TERI LIGHT MD Ot I11 .0 HYPERTENSIVE HEART DISEASE WITH HEART FA 05/15/2019 TERI LIGHT MD Ot I21.A1 MYOCARDIAL INFARCTION TYPE 2 05/15/2019 TERI LIGHT MD, Ot I48.91 UNSPECIFIED ATRIAL FIBRILLATION 05/15/2019 TERI LIGHT MD, Ot I50.23 ACUTE ON CHRONIC SYSTOLIC (CONGESTIVE) H 05/15/2019 TERI LIGHT MD Ot I95 .9 HYPOTENSION, UNSPECIFIED 05/15/2019 TERI LIGHT MD, Ot J44 .1 CHRONIC OBSTRUCTIVE PULMONARY DISEASE W 05/15/2019 TERI LIGHT MD Ot J96.22 ACUTE AND CHRONIC RESPIRATORY FAILURE WI 05/15/2019 TERI LIGHT MD Ot K21 .9 GASTRO-ESOPHAGEAL REFLUX DISEASE WITHOUT 05/15/2019 TERI LIGHT MD Ot R60 .1 GENERALIZED EDEMA 05/15/2019 TERI LIGHT MD, Ot Z68.42 BODY MASS INDEX (BMI) 45.0-49.9, ADULT 05/15/2019 TERI LIGHT MD, Ot Z87.891 PERSONAL HISTORY OF NICOTINE DEPENDENCE 05/15/2019 TERI LIGHT MD, Ot Z96.653 PRESENCE OF ARTIFICIAL KNEE JOINT, BILAT 05/15/2019 TERI LIGHT MD, Ot Z99.81 DEPENDENCE ON SUPPLEMENTAL OXYGEN 05/16/2019 TERI LIGHT MD, Ot D64 .9 ANEMIA, UNSPECIFIED 05/16/2019 TERI LIGHT MD, Ot E66 .2 MORBID (SEVERE) OBESITY WITH ALVEOLAR HY 05/16/2019 TERI LIGHT MD, Ot E78 .5 HYPERLIPIDEMIA, UNSPECIFIED 05/16/2019 TERI LIGHT MD, Ot E87 .2 ACIDOSIS 05/16/2019 TERI LIGHT MD, Ot I11 .0 HYPERTENSIVE HEART DISEASE WITH HEART FA 05/16/2019 TERI LIGHT MD, Ot I21.A1 MYOCARDIAL INFARCTION TYPE 2 05/16/2019 TERI LIGHT MD, Ot I48.91 UNSPECIFIED ATRIAL FIBRILLATION 05/16/2019 TERI LIGHT MD, Ot I50.23 ACUTE ON CHRONIC SYSTOLIC (CONGESTIVE) H 05/16/2019 TERI LIGHT MD, Ot I95 .9 HYPOTENSION, UNSPECIFIED 05/16/2019 TERI LIGHT MD, Ot J44 .1 CHRONIC OBSTRUCTIVE PULMONARY DISEASE W 05/16/2019 TERI LIGHT MD, Ot J96.22 ACUTE AND CHRONIC RESPIRATORY FAILURE WI 05/16/2019 TERI LIGHT MD, Ot K21 .9 GASTRO-ESOPHAGEAL REFLUX DISEASE WITHOUT 05/16/2019 TERI LIGHT MD, Ot R60 .1 GENERALIZED EDEMA 05/16/2019 TERI LIGHT MD, Ot Z68.42 BODY MASS INDEX (BMI) 45.0-49.9, ADULT 05/16/2019 TERI LIGHT MD, Ot Z87.891 PERSONAL HISTORY OF NICOTINE DEPENDENCE 05/16/2019 TERI LIGHT MD, Ot Z96.653 PRESENCE OF ARTIFICIAL KNEE JOINT, BILAT 05/16/2019 TERI LIGHT MD, Ot Z99.81 DEPENDENCE ON SUPPLEMENTAL OXYGEN 05/16/2019 TERI LIGHT MD, Ot D64 .9 ANEMIA, UNSPECIFIED 05/16/2019 TERI LIGHT MD, Ot E66 .2 MORBID (SEVERE) OBESITY WITH ALVEOLAR HY 05/16/2019 TERI LIGHT MD, Ot E78 .5 HYPERLIPIDEMIA, UNSPECIFIED 05/16/2019 TERI LIGHT MD, Ot E87 .2 ACIDOSIS 05/16/2019 TERI LIGHT MD Ot I11 .0 HYPERTENSIVE HEART DISEASE WITH HEART FA 05/16/2019 TERI LIGHT MD, Ot I21.A1 MYOCARDIAL INFARCTION TYPE 2 05/16/2019 TERI LIGHT MD, Ot I48.91 UNSPECIFIED ATRIAL FIBRILLATION 05/16/2019 TERI LIGHT MD, Ot I50.23 ACUTE ON CHRONIC SYSTOLIC (CONGESTIVE) H 05/16/2019 TERI LIGHT MD Ot I95 .9 HYPOTENSION, UNSPECIFIED 05/16/2019 TERI LIGHT MD, Ot J44 .1 CHRONIC OBSTRUCTIVE PULMONARY DISEASE W 05/16/2019 TERI LIGHT MD, Ot J96.22 ACUTE AND CHRONIC RESPIRATORY FAILURE WI 05/16/2019 TERI LIGHT MD, Ot K21 .9 GASTRO-ESOPHAGEAL REFLUX DISEASE WITHOUT 05/16/2019 TERI LIGHT MD Ot R60 .1 GENERALIZED EDEMA 05/16/2019 TERI LIGHT MD, Ot Z68.42 BODY MASS INDEX (BMI) 45.0-49.9, ADULT 05/16/2019 TERI LIGHT MD, Ot Z87.891 PERSONAL HISTORY OF NICOTINE DEPENDENCE 05/16/2019 TERI LIGHT MD, Ot Z96.653 PRESENCE OF ARTIFICIAL KNEE JOINT, BILAT 05/16/2019 TERI LIGHT MD, Ot Z99.81 DEPENDENCE ON SUPPLEMENTAL OXYGEN 05/16/2019 TERI LIGHT MD, Ot D64 .9 ANEMIA, UNSPECIFIED 05/16/2019 TERI LIGHT MD, Ot E66 .2 MORBID (SEVERE) OBESITY WITH ALVEOLAR HY 05/16/2019 TERI LIGHT MD, Ot E78 .5 HYPERLIPIDEMIA, UNSPECIFIED 05/16/2019 TERI LIGHT MD, Ot E87 .2 ACIDOSIS 05/16/2019 TERI LIGHT MD, Ot I11 .0 HYPERTENSIVE HEART DISEASE WITH HEART FA 05/16/2019 TERI LIGHT MD, Ot I21.A1 MYOCARDIAL INFARCTION TYPE 2 05/16/2019 TERI LIGHT MD, Ot I48.91 UNSPECIFIED ATRIAL FIBRILLATION 05/16/2019 TERI LIGHT MD, Ot I50.23 ACUTE ON CHRONIC SYSTOLIC (CONGESTIVE) H 05/16/2019 TERI LIGHT MD, Ot I95 .9 HYPOTENSION, UNSPECIFIED 05/16/2019 TERI LIGHT MD, Ot J44 .1 CHRONIC OBSTRUCTIVE PULMONARY DISEASE W 05/16/2019 TERI LIGHT MD, Ot J96.22 ACUTE AND CHRONIC RESPIRATORY FAILURE [place] 05/16/2019 TERI LIGHT MD, Ot K21 .9 GASTRO-ESOPHAGEAL REFLUX DISEASE WITHOUT 05/16/2019 TERI LIGHT MD Ot R60 .1 GENERALIZED EDEMA 05/16/2019 TERI LIGHT MD, Ot Z68.42 BODY MASS INDEX (BMI) 45.0-49.9, ADULT 05/16/2019 TERI LIGHT MD, Ot Z87.891 PERSONAL HISTORY OF NICOTINE DEPENDENCE 05/16/2019 TERI LIGHT MD, Ot Z96.653 PRESENCE OF ARTIFICIAL KNEE JOINT, BILAT 05/16/2019 TERI LIGHT MD, Ot Z99.81 DEPENDENCE ON SUPPLEMENTAL OXYGEN 05/17/2019 TERI LIGHT MD, Ot D64 .9 ANEMIA, UNSPECIFIED 05/17/2019 ETRI LIGHT MD, Ot E66 .2 MORBID (SEVERE) OBESITY WITH ALVEOLAR HY 05/17/2019 TERI LIGHT MD Ot E78 .5 HYPERLIPIDEMIA, UNSPECIFIED 05/17/2019 TERI LIGHT MD Ot E87 .2 ACIDOSIS 05/17/2019 TERI LIGHT MD Ot I11 .0 HYPERTENSIVE HEART DISEASE WITH HEART FA 05/17/2019 TERI LIGHT MD Ot I21.A1 MYOCARDIAL INFARCTION TYPE 2 05/17/2019 TERI LIGHT MD Ot I48.91 UNSPECIFIED ATRIAL FIBRILLATION 05/17/2019 TERI LIGHT MD Ot I50.23 ACUTE ON CHRONIC SYSTOLIC (CONGESTIVE) H 05/17/2019 TERI LIGHT MD Ot I95 .9 HYPOTENSION, UNSPECIFIED 05/17/2019 TERI LIGHT MD, Ot J44 .1 CHRONIC OBSTRUCTIVE PULMONARY DISEASE W 05/17/2019 TERI LIGHT MD Ot J96.22 ACUTE AND CHRONIC RESPIRATORY FAILURE [place] 05/17/2019 TERI LIGHT MD Ot K21 .9 GASTRO-ESOPHAGEAL REFLUX DISEASE WITHOUT 05/17/2019 TERI LIGHT MD Ot R60 .1 GENERALIZED EDEMA 05/17/2019 TERI LIGHT MD Ot Z68.42 BODY MASS INDEX (BMI) 45.0-49.9, ADULT 05/17/2019 TERI LIGHT MD Ot Z87.891 PERSONAL HISTORY OF NICOTINE DEPENDENCE 05/17/2019 TERI LIGHT MD Ot Z96.653 PRESENCE OF ARTIFICIAL KNEE JOINT, BILAT 05/17/2019 TERI LIGHT MD Ot Z99.81 DEPENDENCE ON SUPPLEMENTAL OXYGEN 05/17/2019 TERI LIGHT MD Ot D64 .9 ANEMIA, UNSPECIFIED 05/17/2019 TERI LIGHT MD Ot E66 .2 MORBID (SEVERE) OBESITY WITH ALVEOLAR HY 05/17/2019 TERI LIGHT MD Ot E78 .5 HYPERLIPIDEMIA, UNSPECIFIED 05/17/2019 TERI LIGHT MD Ot E87 .2 ACIDOSIS 05/17/2019 TERI LIGHT MD Ot I11 .0 HYPERTENSIVE HEART DISEASE WITH HEART FA 05/17/2019 TERI LIGHT MD Ot I21.A1 MYOCARDIAL INFARCTION TYPE 2 05/17/2019 TERI LIGHT MD, Ot I48.91 UNSPECIFIED ATRIAL FIBRILLATION 05/17/2019 TERI LIGHT MD, Ot I50.23 ACUTE ON CHRONIC SYSTOLIC (CONGESTIVE) H 05/17/2019 TERI LIGHT MD Ot I95 .9 HYPOTENSION, UNSPECIFIED 05/17/2019 TERI LIGHT MD, Ot J44 .1 CHRONIC OBSTRUCTIVE PULMONARY DISEASE W 05/17/2019 TERI LIGHT MD, Ot J96.22 ACUTE AND CHRONIC RESPIRATORY FAILURE [place] 05/17/2019 TERI LIGHT MD, Ot K21 .9 GASTRO-ESOPHAGEAL REFLUX DISEASE WITHOUT 05/17/2019 TERI LIGHT MD, Ot R60 .1 GENERALIZED EDEMA 05/17/2019 TERI LIGHT MD, Ot Z68.42 BODY MASS INDEX (BMI) 45.0-49.9, ADULT 05/17/2019 TERI LIGHT MD, Ot Z87.891 PERSONAL HISTORY OF NICOTINE DEPENDENCE 05/17/2019 TERI LIGHT MD, Ot Z96.653 PRESENCE OF ARTIFICIAL KNEE JOINT, BILAT 05/17/2019 TERI LIGHT MD, Ot Z99.81 DEPENDENCE ON SUPPLEMENTAL OXYGEN 05/18/2019 TERI LIGHT MD, Ot D64 .9 ANEMIA, UNSPECIFIED 05/18/2019 TERI LIGHT MD Ot E66 .2 MORBID (SEVERE) OBESITY WITH ALVEOLAR HY 05/18/2019 TERI LIGHT MD Ot E78 .5 HYPERLIPIDEMIA, UNSPECIFIED 05/18/2019 TERI LIGHT MD Ot E87 .2 ACIDOSIS 05/18/2019 TERI LIGHT MD Ot I11 .0 HYPERTENSIVE HEART DISEASE WITH HEART FA 05/18/2019 TERI LIGHT MD, Ot I21.A1 MYOCARDIAL INFARCTION TYPE 2 05/18/2019 TERI LIGHT MD, Ot I48.91 UNSPECIFIED ATRIAL FIBRILLATION 05/18/2019 TERI LIGHT MD Ot I50.23 ACUTE ON CHRONIC SYSTOLIC (CONGESTIVE) H 05/18/2019 TERI LIGHT MD Ot I95 .9 HYPOTENSION, UNSPECIFIED 05/18/2019 TERI LIGHT MD, Ot J44 .1 CHRONIC OBSTRUCTIVE PULMONARY DISEASE W 05/18/2019 TERI LIGHT MD, Ot J96.22 ACUTE AND CHRONIC RESPIRATORY FAILURE [place] 05/18/2019 TERI LIGHT MD, Ot K21 .9 GASTRO-ESOPHAGEAL REFLUX DISEASE WITHOUT 05/18/2019 TERI LIGHT MD Ot R60 .1 GENERALIZED EDEMA 05/18/2019 TERI LIGHT MD, Ot Z68.42 BODY MASS INDEX (BMI) 45.0-49.9, ADULT 05/18/2019 TERI LIGHT MD, Ot Z87.891 PERSONAL HISTORY OF NICOTINE DEPENDENCE 05/18/2019 TERI LIGHT MD, Ot Z96.653 PRESENCE OF ARTIFICIAL KNEE JOINT, BILAT 05/18/2019 TERI LIGHT MD, Ot Z99.81 DEPENDENCE ON SUPPLEMENTAL OXYGEN 05/19/2019 TERI LIGHT MD, Ot D64 .9 ANEMIA, UNSPECIFIED 05/19/2019 TERI LIGHT MD Ot E66 .2 MORBID (SEVERE) OBESITY WITH ALVEOLAR HY 05/19/2019 TERI LIGHT MD Ot E78 .5 HYPERLIPIDEMIA, UNSPECIFIED 05/19/2019 TERI LIGHT MD Ot E87 .2 ACIDOSIS 05/19/2019 TERI LIGHT MD Ot I11 .0 HYPERTENSIVE HEART DISEASE WITH HEART FA 05/19/2019 TERI LIGHT MD, Ot I21.A1 MYOCARDIAL INFARCTION TYPE 2 05/19/2019 TERI LIGHT MD Ot I48.91 UNSPECIFIED ATRIAL FIBRILLATION 05/19/2019 TERI LIGHT MD Ot I50.23 ACUTE ON CHRONIC SYSTOLIC (CONGESTIVE) H 05/19/2019 TERI LIGHT MD Ot I95 .9 HYPOTENSION, UNSPECIFIED 05/19/2019 TERI LIGHT MD, Ot J44 .1 CHRONIC OBSTRUCTIVE PULMONARY DISEASE W 05/19/2019 TERI LIGHT MD, Ot J96.22 ACUTE AND CHRONIC RESPIRATORY FAILURE [place] 05/19/2019 TERI LIGHT MD, Ot K21 .9 GASTRO-ESOPHAGEAL REFLUX DISEASE WITHOUT 05/19/2019 TERI LIGHT MD Ot R60 .1 GENERALIZED EDEMA 05/19/2019 TERI LIGHT MD Ot Z68.42 BODY MASS INDEX (BMI) 45.0-49.9, ADULT 05/19/2019 TERI LIGHT MD, Ot Z87.891 PERSONAL HISTORY OF NICOTINE DEPENDENCE 05/19/2019 TERI LIGHT MD, Ot Z96.653 PRESENCE OF ARTIFICIAL KNEE JOINT, BILAT 05/19/2019 TERI LIGHT MD Ot Z99.81 DEPENDENCE ON SUPPLEMENTAL OXYGEN 05/20/2019 TERI LIGHT MD Ot D64 .9 ANEMIA, UNSPECIFIED 05/20/2019 TERI LIGHT MD Ot E66 .2 MORBID (SEVERE) OBESITY WITH ALVEOLAR HY 05/20/2019 TERI LIGHT MD, Ot E78 .5 HYPERLIPIDEMIA, UNSPECIFIED 05/20/2019 TERI LIGHT MD Ot E87 .2 ACIDOSIS 05/20/2019 TERI LIGHT MD Ot I11 .0 HYPERTENSIVE HEART DISEASE WITH HEART FA 05/20/2019 TERI LIGHT MD Ot I21.A1 MYOCARDIAL INFARCTION TYPE 2 05/20/2019 TERI LIGHT MD Ot I48.91 UNSPECIFIED ATRIAL FIBRILLATION 05/20/2019 TERI LIGHT MD Ot I50.23 ACUTE ON CHRONIC SYSTOLIC (CONGESTIVE) H 05/20/2019 TERI LIGHT MD Ot I95 .9 HYPOTENSION, UNSPECIFIED 05/20/2019 TERI LIGHT MD, Ot J44 .1 CHRONIC OBSTRUCTIVE PULMONARY DISEASE W 05/20/2019 TERI LIGHT MD Ot J96.22 ACUTE AND CHRONIC RESPIRATORY FAILURE [place] 05/20/2019 TERI LIGHT MD Ot K21 .9 GASTRO-ESOPHAGEAL REFLUX DISEASE WITHOUT 05/20/2019 TERI LIGHT MD Ot R60 .1 GENERALIZED EDEMA 05/20/2019 TERI LIGHT MD Ot Z68.42 BODY MASS INDEX (BMI) 45.0-49.9, ADULT 05/20/2019 TERI LIGHT MD, Ot Z87.891 PERSONAL HISTORY OF NICOTINE DEPENDENCE 05/20/2019 TERI LIGHT MD Ot Z96.653 PRESENCE OF ARTIFICIAL KNEE JOINT, BILAT 05/20/2019 TERI LIGHT MD Ot Z99.81 DEPENDENCE ON SUPPLEMENTAL OXYGEN 05/21/2019 TERI LIGHT MD Ot D64 .9 ANEMIA, UNSPECIFIED 05/21/2019 TERI LIGHT MD, Ot E66 .2 MORBID (SEVERE) OBESITY WITH ALVEOLAR HY 05/21/2019 TERI LIGHT MD, Ot E78 .5 HYPERLIPIDEMIA, UNSPECIFIED 05/21/2019 TERI LIGHT MD Ot E87 .2 ACIDOSIS 05/21/2019 TERI LIGHT MD Ot I11 .0 HYPERTENSIVE HEART DISEASE WITH HEART FA 05/21/2019 TERI LIGHT MD, Ot I21.A1 MYOCARDIAL INFARCTION TYPE 2 05/21/2019 TERI LIGHT MD Ot I48.91 UNSPECIFIED ATRIAL FIBRILLATION 05/21/2019 TERI LIGHT MD Ot I50.23 ACUTE ON CHRONIC SYSTOLIC (CONGESTIVE) H 05/21/2019 TERI LIGHT MD, Ot I95 .9 HYPOTENSION, UNSPECIFIED 05/21/2019 TERI LIGHT MD, Ot J44 .1 CHRONIC OBSTRUCTIVE PULMONARY DISEASE W 05/21/2019 TERI LIGHT MD, Ot J96.22 ACUTE AND CHRONIC RESPIRATORY FAILURE [place] 05/21/2019 TERI LIGHT MD Ot K21 .9 GASTRO-ESOPHAGEAL REFLUX DISEASE WITHOUT 05/21/2019 TERI LIGHT MD Ot R60 .1 GENERALIZED EDEMA 05/21/2019 TERI LIGHT MD, Ot Z68.42 BODY MASS INDEX (BMI) 45.0-49.9, ADULT 05/21/2019 TERI LIGHT MD, Ot Z87.891 PERSONAL HISTORY OF NICOTINE DEPENDENCE 05/21/2019 TERI LIGHT MD, Ot Z96.653 PRESENCE OF ARTIFICIAL KNEE JOINT, BILAT 05/21/2019 TERI LIGHT MD Ot Z99.81 DEPENDENCE ON SUPPLEMENTAL OXYGEN 05/21/2019 TERI LIGHT MD, Ot D64 .9 ANEMIA, UNSPECIFIED 05/21/2019 TERI LIGHT MD, Ot E66 .2 MORBID (SEVERE) OBESITY WITH ALVEOLAR HY 05/21/2019 TERI LIGHT MD Ot E78 .5 HYPERLIPIDEMIA, UNSPECIFIED 05/21/2019 TERI LIGHT MD Ot E87 .2 ACIDOSIS 05/21/2019 TERI LIGHT MD Ot I11 .0 HYPERTENSIVE HEART DISEASE WITH HEART FA 05/21/2019 TERI LIGHT MD, Ot I21.A1 MYOCARDIAL INFARCTION TYPE 2 05/21/2019 TERI LIGHT MD, Ot I48.91 UNSPECIFIED ATRIAL FIBRILLATION 05/21/2019 TERI LIGHT MD, Ot I50.23 ACUTE ON CHRONIC SYSTOLIC (CONGESTIVE) H 05/21/2019 TERI LIGHT MD, Ot I95 .9 HYPOTENSION, UNSPECIFIED 05/21/2019 TERI LIGHT MD, Ot J44 .1 CHRONIC OBSTRUCTIVE PULMONARY DISEASE W 05/21/2019 TERI LIGHT MD, Ot J96.22 ACUTE AND CHRONIC RESPIRATORY FAILURE [place] 05/21/2019 TERI LIGHT MD, Ot K21 .9 GASTRO-ESOPHAGEAL REFLUX DISEASE WITHOUT 05/21/2019 TERI LIGHT MD, Ot R60 .1 GENERALIZED EDEMA 05/21/2019 TERI LIGHT MD, Ot Z68.42 BODY MASS INDEX (BMI) 45.0-49.9, ADULT 05/21/2019 TERI LIGHT MD, Ot Z87.891 PERSONAL HISTORY OF NICOTINE DEPENDENCE 05/21/2019 TERI LIGHT MD, Ot Z96.653 PRESENCE OF ARTIFICIAL KNEE JOINT, BILAT 05/21/2019 TERI LIGHT MD, Ot Z99.81 DEPENDENCE ON SUPPLEMENTAL OXYGEN 05/22/2019 TERI LIGHT MD, Ot D64 .9 ANEMIA, UNSPECIFIED 05/22/2019 TERI LIGHT MD, Ot E66 .2 MORBID (SEVERE) OBESITY WITH ALVEOLAR HY 05/22/2019 TERI LIGHT MD, Ot E78 .5 HYPERLIPIDEMIA, UNSPECIFIED 05/22/2019 TERI LIGHT MD, Ot E87 .2 ACIDOSIS 05/22/2019 TERI LIGHT MD, Ot I11 .0 HYPERTENSIVE HEART DISEASE WITH HEART FA 05/22/2019 TERI LIGHT MD, Ot I21.A1 MYOCARDIAL INFARCTION TYPE 2 05/22/2019 TERI LIGHT MD, Ot I48.91 UNSPECIFIED ATRIAL FIBRILLATION 05/22/2019 TERI LIGHT MD, Ot I50.23 ACUTE ON CHRONIC SYSTOLIC (CONGESTIVE) H 05/22/2019 TERI LIGHT MD Ot I95 .9 HYPOTENSION, UNSPECIFIED 05/22/2019 TERI LIGHT MD, Ot J44 .1 CHRONIC OBSTRUCTIVE PULMONARY DISEASE W 05/22/2019 TERI LIGHT MD, Ot J96.22 ACUTE AND CHRONIC RESPIRATORY FAILURE [place] 05/22/2019 TERI LIGHT MD, Ot K21 .9 GASTRO-ESOPHAGEAL REFLUX DISEASE WITHOUT 05/22/2019 TERI LIGHT MD, Ot R60 .1 GENERALIZED EDEMA 05/22/2019 TERI LIGHT MD, Ot Z68.42 BODY MASS INDEX (BMI) 45.0-49.9, ADULT 05/22/2019 TERI LIGHT MD, Ot Z87.891 PERSONAL HISTORY OF NICOTINE DEPENDENCE 05/22/2019 TERI LIGHT MD, Ot Z96.653 PRESENCE OF ARTIFICIAL KNEE JOINT, BILAT 05/22/2019 TERI LIGHT MD, Ot Z99.81 DEPENDENCE ON SUPPLEMENTAL OXYGEN 05/22/2019 TERI LIGHT MD, Ot D64 .9 ANEMIA, UNSPECIFIED 05/22/2019 TERI LIGHT MD, Ot E66 .2 MORBID (SEVERE) OBESITY WITH ALVEOLAR HY 05/22/2019 TERI LIGHT MD, Ot E78 .5 HYPERLIPIDEMIA, UNSPECIFIED 05/22/2019 TERI LIGHT MD, Ot E87 .2 ACIDOSIS 05/22/2019 TERI LIGHT MD, Ot I11 .0 HYPERTENSIVE HEART DISEASE WITH HEART FA 05/22/2019 TERI LIGHT MD, Ot I21.A1 MYOCARDIAL INFARCTION TYPE 2 05/22/2019 TERI LIGHT MD, Ot I48.91 UNSPECIFIED ATRIAL FIBRILLATION 05/22/2019 TERI LIGHT MD, Ot I50.23 ACUTE ON CHRONIC SYSTOLIC (CONGESTIVE) H 05/22/2019 TERI LIGHT MD, Ot I95 .9 HYPOTENSION, UNSPECIFIED 05/22/2019 TERI LIGHT MD, Ot J44 .1 CHRONIC OBSTRUCTIVE PULMONARY DISEASE W 05/22/2019 TERI LIGHT MD, Ot J96.22 ACUTE AND CHRONIC RESPIRATORY FAILURE [place] 05/22/2019 TERI LIGHT MD, Ot K21 .9 GASTRO-ESOPHAGEAL REFLUX DISEASE WITHOUT 05/22/2019 TERI LIGHT MD Ot R60 .1 GENERALIZED EDEMA 05/22/2019 TERI LIGHT MD, Ot Z68.42 BODY MASS INDEX (BMI) 45.0-49.9, ADULT 05/22/2019 TERI LIGHT MD, Ot Z87.891 PERSONAL HISTORY OF NICOTINE DEPENDENCE 05/22/2019 TERI LIGHT MD, Ot Z96.653 PRESENCE OF ARTIFICIAL KNEE JOINT, BILAT 05/22/2019 TERI LIGHT MD Ot Z99.81 DEPENDENCE ON SUPPLEMENTAL OXYGEN 05/23/2019 TERI LIGHT MD Ot D64 .9 ANEMIA, UNSPECIFIED 05/23/2019 TERI LIGHT MD Ot E66 .2 MORBID (SEVERE) OBESITY WITH ALVEOLAR HY 05/23/2019 TERI LIGHT MD Ot E78 .5 HYPERLIPIDEMIA, UNSPECIFIED 05/23/2019 TERI LIGHT MD Ot E87 .2 ACIDOSIS 05/23/2019 TERI LIGHT MD Ot I11 .0 HYPERTENSIVE HEART DISEASE WITH HEART FA 05/23/2019 TERI LIGHT MD Ot I21.A1 MYOCARDIAL INFARCTION TYPE 2 05/23/2019 TERI LIGHT MD Ot I48.91 UNSPECIFIED ATRIAL FIBRILLATION 05/23/2019 TERI LIGHT MD Ot I50.23 ACUTE ON CHRONIC SYSTOLIC (CONGESTIVE) H 05/23/2019 TERI LIGHT MD Ot I95 .9 HYPOTENSION, UNSPECIFIED 05/23/2019 TERI LIGHT MD, Ot J44 .1 CHRONIC OBSTRUCTIVE PULMONARY DISEASE W 05/23/2019 TERI LIGHT MD Ot J96.22 ACUTE AND CHRONIC RESPIRATORY FAILURE [place] 05/23/2019 TERI LIGHT MD Ot K21 .9 GASTRO-ESOPHAGEAL REFLUX DISEASE WITHOUT 05/23/2019 TERI LIGHT MD Ot R60 .1 GENERALIZED EDEMA 05/23/2019 TERI LIGHT MD, Ot Z68.42 BODY MASS INDEX (BMI) 45.0-49.9, ADULT 05/23/2019 TERI LIGHT MD, Ot Z87.891 PERSONAL HISTORY OF NICOTINE DEPENDENCE 05/23/2019 TERI LIGHT MD Ot Z96.653 PRESENCE OF ARTIFICIAL KNEE JOINT, BILAT 05/23/2019 TERI LIGHT MD Ot Z99.81 DEPENDENCE ON SUPPLEMENTAL OXYGEN 05/25/2019 KULDEEPETRI INGRAM MD, Ot D64 .9 ANEMIA, UNSPECIFIED 05/25/2019 TERI LIGHT MD, Ot E66 .2 MORBID (SEVERE) OBESITY WITH ALVEOLAR HY 05/25/2019 TERI LIGHT MD Ot E78 .5 HYPERLIPIDEMIA, UNSPECIFIED 05/25/2019 TERI LIGHT MD Ot E87 .2 ACIDOSIS 05/25/2019 TERI LIGHT MD Ot I11 .0 HYPERTENSIVE HEART DISEASE WITH HEART FA 05/25/2019 TERI LIGHT MD, Ot I21.A1 MYOCARDIAL INFARCTION TYPE 2 05/25/2019 TERI LIGHT MD Ot I48.91 UNSPECIFIED ATRIAL FIBRILLATION 05/25/2019 TERI LIGHT MD Ot I50.23 ACUTE ON CHRONIC SYSTOLIC (CONGESTIVE) H 05/25/2019 TERI LIGHT MD, Ot I95 .9 HYPOTENSION, UNSPECIFIED 05/25/2019 TERI LIGHT MD, Ot J44 .1 CHRONIC OBSTRUCTIVE PULMONARY DISEASE W 05/25/2019 TERI LIGHT MD, Ot J96.22 ACUTE AND CHRONIC RESPIRATORY FAILURE [place] 05/25/2019 TERI LIGHT MD, Ot K21 .9 GASTRO-ESOPHAGEAL REFLUX DISEASE WITHOUT 05/25/2019 TERI LIGHT MD Ot R60 .1 GENERALIZED EDEMA 05/25/2019 TERI LIGHT MD, Ot Z68.42 BODY MASS INDEX (BMI) 45.0-49.9, ADULT 05/25/2019 TERI LIGHT MD, Ot Z87.891 PERSONAL HISTORY OF NICOTINE DEPENDENCE 05/25/2019 TERI LIGHT MD, Ot Z96.653 PRESENCE OF ARTIFICIAL KNEE JOINT, BILAT 05/25/2019 TERI LIGHT MD, Ot Z99.81 DEPENDENCE ON SUPPLEMENTAL OXYGEN 05/26/2019 TERI LIGHT MD, Ot D64 .9 ANEMIA, UNSPECIFIED 05/26/2019 TERI LIGHT MD, Ot E66 .2 MORBID (SEVERE) OBESITY WITH ALVEOLAR HY 05/26/2019 TERI LIGHT MD Ot E78 .5 HYPERLIPIDEMIA, UNSPECIFIED 05/26/2019 TERI LIGHT MD Ot E87 .2 ACIDOSIS 05/26/2019 TERI LIGHT MD Ot I11 .0 HYPERTENSIVE HEART DISEASE WITH HEART FA 05/26/2019 TERI LIGHT MD, Ot I21.A1 MYOCARDIAL INFARCTION TYPE 2 05/26/2019 TERI LIGHT MD, Ot I48.91 UNSPECIFIED ATRIAL FIBRILLATION 05/26/2019 TERI LIGHT MD, Ot I50.23 ACUTE ON CHRONIC SYSTOLIC (CONGESTIVE) H 05/26/2019 TERI LIGHT MD, Ot I95 .9 HYPOTENSION, UNSPECIFIED 05/26/2019 TERI LIGHT MD, Ot J44 .1 CHRONIC OBSTRUCTIVE PULMONARY DISEASE W 05/26/2019 TERI LIGHT MD, Ot J96.22 ACUTE AND CHRONIC RESPIRATORY FAILURE [place] 05/26/2019 TERI LIGHT MD, Ot K21 .9 GASTRO-ESOPHAGEAL REFLUX DISEASE WITHOUT 05/26/2019 TERI LIGHT MD, Ot R60 .1 GENERALIZED EDEMA 05/26/2019 TERI LIGHT MD, Ot Z68.42 BODY MASS INDEX (BMI) 45.0-49.9, ADULT 05/26/2019 TERI LIGHT MD, Ot Z87.891 PERSONAL HISTORY OF NICOTINE DEPENDENCE 05/26/2019 TERI LIGHT MD, Ot Z96.653 PRESENCE OF ARTIFICIAL KNEE JOINT, BILAT 05/26/2019 TERI LIGHT MD, Ot Z99.81 DEPENDENCE ON SUPPLEMENTAL OXYGEN Procedures There is no data. Results Test Result Range Bacterial blood culture - 05/04/19 13:25 Bacterial blood culture NG NR Complete blood count (CBC) with automate d white blood cell (WBC) differential - 05/04/19 14:50 Blood leukocytes automated count (number/volume) 9.8 10*3/uL 4.3-11.0 Blood erythrocytes automated count (number/volume) 3.93 10*6/uL 4.35-5.85 Venous blood hemoglobin measurement (mass/volume) 10.9 g/dL 11.5-16.0 Blood hematocrit (volume fraction) 39 % 35-52 Automated erythrocyte mean corpuscular volume 99 [ foz_us] 80-99 Automated erythrocyte mean corpuscular h emoglobin (mass per erythrocyte) 28 pg 25-34 Automated erythrocyte mean corpuscular h emoglobin concentration measurement (mass/volume) 28 g/dL 32-36 Automated erythrocyte distribution width ratio 15. 8 % 10.0- 14.5 Automated blood platelet count (count/volume) 142 10*3/uL 130-400 Automated blood platelet mean volume measurement 9.7 [foz_us] 7.4-10.4 Automated blood neutrophils/100 leukocytes 82 % 42-75 Automated blood lymphocytes/100 leukocytes 10 % 12-44 Blood monocytes/100 leukocytes 7 % 0-12 Automated blood eosinophils/100 leukocytes 1 % 0-10 Automated blood basophils/100 leukocytes 0 % 0-10 Blood neutrophils automated count (number/volume) 8.1 10*3 1.8-7.8 Blood lymphocytes automated count (number/volume) 1.0 10*3 1.0-4.0 Blood monocytes automated count (number/volume) 0. 7 10*3 0.0-1.0 Automated eosinophil count 0.1 10*3/uL 0 .0-0.3 Automated blood basophil count (count/volume) 0.0 10*3/uL 0.0-0.1 Blood lactic acid measurement (moles/vol ume) - 05/04/19 14:50 Blood lactic acid measurement (moles/volume) 0.86 mmol/L 0.50-2.00 Comprehensive metabolic panel - 05/04/19 14:50 Serum or plasma sodium measurement (moles/volume) 143 mmol/L 135-145 Serum or plasma potassium measurement (moles/volume) 4.7 mmol/L 3.6-5.0 Serum or plasma chloride measurement (moles/volume) 98 mmol/L 98-107 Carbon dioxide 38 mmol/L 21-32 Serum or plasma anion gap determination (moles/volume) 7 mmol/L 5-14 Serum or plasma urea nitrogen measurement (mass/volume ) 19 mg/dL 7-18 Serum or plasma creatinine measurement (mass/volume) 0.66 mg/dL 0.60-1.30 Serum or plasma urea nitrogen/creatinine mass ratio 29 NRG Serum or plasma creatinine measurement w ith calculation of estimated glomerular filtration rate > NRG Serum or plasma glucose measurement (mass/volume) 126 mg/dL 70-105 Serum or plasma calcium measurement (mass/volume) 8.4 mg/dL 8.5-10.1 Serum or plasma total bilirubin measurement (mass/volu me) 0.4 mg/dL 0.1-1.0 Serum or plasma alkaline phosphatase gil surement (enzymatic activity/volume) 73 U/L 40-136 Serum or plasma aspartate aminotransfera se measurement (enzymatic activity/volume) 15 U/L 5-34 Serum or plasma alanine aminotransferase measurement (enzymatic activity/volume) 18 U/L 0-55 Serum or plasma protein measurement (mass/volume) 6.0 g/dL 6.4-8.2 Serum or plasma albumin measurement (mass/volume) 3.8 g/dL 3.2-4.5 CALCIUM CORRECTED 8.6 mg/dL 8.5-10.1 Magnesium - 05/04/19 14:50 Magnesium 1.9 mg/dL 1.6-2.4 Serum or plasma troponin i.cardiac measu rement (mass/volume) - 05/04/19 14:50 Serum or plasma troponin i.cardiac measurement (mass/v olume) 0.034 ng/mL <0.028 Serum or plasma lithium measurement (mol es/volume) - 05/04/19 14:50 BNP PT 574.4 pg/mL <100.0 Bacterial blood culture - 05/04/19 14:50 Bacterial blood culture NG NRG Complete urinalysis with reflex to cultu re - 05/04/19 15:03 Urine color determination YELLOW NRG Urine clarity determination CLEAR NR G Urine pH measurement by test strip 7.0 5-9 Specific gravity of urine by test strip 1.020 1.016-1.022 Urine protein assay by test strip, semi-quantitative TRACE NEGATIVE Urine glucose detection by automated test strip NE GATIVE NEGATIVE Erythrocytes detection in urine sediment by light micr oscopy NEGATIVE NEGATIVE Urine ketones detection by automated test strip NE GATIVE NEGATIVE Urine nitrite detection by test strip NEGATIVE NEGATIVE Urine total bilirubin detection by test strip NEGA TIVE NEGATIVE Urine urobilinogen measurement by automated test strip (mass/volume) 0.2 mg/dL < = 1.0 Urine leukocyte esterase detection by dipstick NEG ATIVE NEGATIVE Automated urine sediment erythrocyte cou nt by microscopy (number/high power field) [HPF] NRG Automated urine sediment leukocyte count by microscopy (number/high power field) [HPF] NRG Bacteria detection in urine sediment by light microsco py TRACE NRG Crystals detection in urine sediment by light microsco py NONE NRG Casts detection in urine sediment by light microscopy PRESENT NRG Mucus detection in urine sediment by light microscopy MODERATE NRG Complete urinalysis with reflex to culture NO NRG Hyaline casts detection in urine sediment by light leandro roscopy 0-2 NRG Methicillin resistant Staphylococcus aur eus (MRSA) screening culture - 05/04/19 18:20 Methicillin resistant Staphylococcus aureus (MRSA) scr eening culture NEG NRG Arterial blood gas measurement - 9 18:25 Blood pCO2 89 mm[Hg] 35-45 Blood pO2 99 mm[Hg] 79-93 Arterial blood bicarbonate measurement (moles/volume) 45 mmol/L 23-27 Arterial blood base excess by calculation 17.8 mmo l/L -2.5-2.5 Arterial blood oxygen saturation measurement 98 % 94-100 * Inhaled oxygen flow rate 9 L NRG Arterial blood pH measurement with patient temperature correction 7.32 7.37-7.43 Arterial blood carbon dioxide, total measurement (mole s/volume) 47.6 mmol/L 21.0-31.0 Body site LEFT RADIAL NRG Assessment of wrist artery patency prior to arterial p uncture POSITIVE NRG Setting of ventilation mode NO NR G Measurement of body temperature 36.5 NRG Complete blood count (CBC) with automate d white blood cell (WBC) differential - 05/05/19 03:00 Blood leukocytes automated count (number/volume) 6.7 10*3/uL 4.3-11.0 Blood erythrocytes automated count (number/volume) 3.60 10*6/uL 4.35-5.85 Venous blood hemoglobin measurement (mass/volume) 9.9 g/dL 11.5-16.0 Blood hematocrit (volume fraction) 36 % 35-52 Automated erythrocyte mean corpuscular volume 100 [foz_us] 80-99 Automated erythrocyte mean corpuscular h emoglobin (mass per erythrocyte) 28 pg 25-34 Automated erythrocyte mean corpuscular h emoglobin concentration measurement (mass/volume) 27 g/dL 32-36 Automated erythrocyte distribution width ratio 15. 9 % 10.0- 14.5 Automated blood platelet count (count/volume) 129 10*3/uL 130-400 Automated blood platelet mean volume measurement 10.2 [foz_us] 7.4-10.4 Automated blood neutrophils/100 leukocytes 74 % 42-75 Automated blood lymphocytes/100 leukocytes 16 % 12-44 Blood monocytes/100 leukocytes 8 % 0-12 Automated blood eosinophils/100 leukocytes 2 % 0-10 Automated blood basophils/100 leukocytes 0 % 0-10 Blood neutrophils automated count (number/volume) 4.9 10*3 1.8-7.8 Blood lymphocytes automated count (number/volume) 1.0 10*3 1.0-4.0 Blood monocytes automated count (number/volume) 0. 6 10*3 0.0-1.0 Automated eosinophil count 0.2 10*3/uL 0 .0-0.3 Automated blood basophil count (count/volume) 0.0 10*3/uL 0.0-0.1 Comprehensive metabolic panel - 05/05/19 03:00 Serum or plasma sodium measurement (moles/volume) 145 mmol/L 135-145 Serum or plasma potassium measurement (moles/volume) 4.4 mmol/L 3.6-5.0 Serum or plasma chloride measurement (moles/volume) 97 mmol/L 98-107 Carbon dioxide 38 mmol/L 21-32 Serum or plasma anion gap determination (moles/volume) 10 mmol/L 5-14 Serum or plasma urea nitrogen measurement (mass/volume ) 19 mg/dL 7-18 Serum or plasma creatinine measurement (mass/volume) 0.65 mg/dL 0.60-1.30 Serum or plasma urea nitrogen/creatinine mass ratio 29 NRG Serum or plasma creatinine measurement w ith calculation of estimated glomerular filtration rate > NRG Serum or plasma glucose measurement (mass/volume) 109 mg/dL 70-105 Serum or plasma calcium measurement (mass/volume) 8.0 mg/dL 8.5-10.1 Serum or plasma total bilirubin measurement (mass/volu me) 0.4 mg/dL 0.1-1.0 Serum or plasma alkaline phosphatase gil surement (enzymatic activity/volume) 72 U/L 40-136 Serum or plasma aspartate aminotransfera se measurement (enzymatic activity/volume) 9 U/L 5-34 Serum or plasma alanine aminotransferase measurement (enzymatic activity/volume) 11 U/L 0-55 Serum or plasma protein measurement (mass/volume) 5.1 g/dL 6.4-8.2 Serum or plasma albumin measurement (mass/volume) 3.3 g/dL 3.2-4.5 CALCIUM CORRECTED 8.6 mg/dL 8.5-10.1 Serum or plasma phosphate measurement (m ass/volume) - 05/05/19 03:00 Serum or plasma phosphate measurement (mass/volume) 4.9 mg/dL 2.3-4.7 Magnesium - 05/05/19 03:00 Magnesium 1.9 mg/dL 1.6-2.4 Serum or plasma troponin i.cardiac measu rement (mass/volume) - 05/05/19 03:00 Serum or plasma troponin i.cardiac measurement (mass/v olume) 0.030 ng/mL <0.028 Lipid 1996 panel - 05/05/19 03:00 Serum or plasma triglyceride measurement (mass/volume) 58 mg/dL <150 Serum or plasma cholesterol measurement (mass/volume) 110 mg/dL < 200 Serum or plasma cholesterol in HDL measurement (mass/v olume) 55 mg/dL 40-60 Cholesterol in LDL [mass/volume] in serum or plasma by direct assay 40 mg/dL 1-129 Serum or plasma cholesterol in VLDL measurement (mass/ volume) 12 mg/dL 5-40 THYROID STIMULATING HORMONE - 05/05/19 0 3:00 THYROID STIMULATING HORMONE 1.33 u[iU]/mL 0.35-4.94 Arterial blood gas measurement - 9 03:07 Blood pCO2 90 mm[Hg] 35-45 Blood pO2 92 mm[Hg] 79-93 Arterial blood bicarbonate measurement (moles/volume) 45 mmol/L 23-27 Arterial blood base excess by calculation 17.4 mmo l/L -2.5-2.5 Arterial blood oxygen saturation measurement 98 % 94-100 * Inhaled oxygen flow rate 60 NRG Arterial blood pH measurement with patient temperature correction 7.31 7.37-7.43 Arterial blood carbon dioxide, total measurement (mole s/volume) 47.5 mmol/L 21.0-31.0 Body site RIGHT RADIAL NRG Assessment of wrist artery patency prior to arterial p uncture POSITIVE NRG Setting of ventilation mode NO NR G Measurement of body temperature 35.8 NRG Arterial blood gas measurement - 9 04:59 Blood pCO2 68 mm[Hg] 35-45 Blood pO2 71 mm[Hg] 79-93 Arterial blood bicarbonate measurement (moles/volume) 44 mmol/L 23-27 Arterial blood base excess by calculation 17.6 mmo l/L -2.5-2.5 Arterial blood oxygen saturation measurement 97 % 94-100 * Inhaled oxygen flow rate 60% NRG Arterial blood pH measurement with patient temperature correction 7.41 7.37-7.43 Arterial blood carbon dioxide, total measurement (mole s/volume) 45.9 mmol/L 21.0-31.0 Body site RIGHT RADIAL NRG Assessment of wrist artery patency prior to arterial p uncture POSITIVE NRG Setting of ventilation mode NO NR G Measurement of body temperature 35.3 NRG Capillary blood glucose measurement by g lucometer (mass/volume) - 05/05/19 11:45 Capillary blood glucose measurement by glucometer (mas s/volume) 214 mg/dL 70-110 Capillary blood glucose measurement by g lucometer (mass/volume) - 05/05/19 15:49 Capillary blood glucose measurement by glucometer (mas s/volume) 242 mg/dL 70-110 Capillary blood glucose measurement by g lucometer (mass/volume) - 05/05/19 20:03 Capillary blood glucose measurement by glucometer (mas s/volume) 290 mg/dL 70-110 Complete blood count (CBC) with automate d white blood cell (WBC) differential - 05/06/19 03:18 Blood leukocytes automated count (number/volume) 8.0 10*3/uL 4.3-11.0 Blood erythrocytes automated count (number/volume) 3.99 10*6/uL 4.35-5.85 Venous blood hemoglobin measurement (mass/volume) 10.9 g/dL 11.5-16.0 Blood hematocrit (volume fraction) 38 % 35-52 Automated erythrocyte mean corpuscular volume 95 [ foz_us] 80-99 Automated erythrocyte mean corpuscular h emoglobin (mass per erythrocyte) 27 pg 25-34 Automated erythrocyte mean corpuscular h emoglobin concentration measurement (mass/volume) 29 g/dL 32-36 Automated erythrocyte distribution width ratio 15. 3 % 10.0- 14.5 Automated blood platelet count (count/volume) 135 10*3/uL 130-400 Automated blood platelet mean volume measurement 10.6 [foz_us] 7.4-10.4 Automated blood neutrophils/100 leukocytes 92 % 42-75 Automated blood lymphocytes/100 leukocytes 6 % 12-44 Blood monocytes/100 leukocytes 2 % 0-12 Automated blood eosinophils/100 leukocytes 0 % 0-10 Automated blood basophils/100 leukocytes 0 % 0-10 Blood neutrophils automated count (number/volume) 7.3 10*3 1.8-7.8 Blood lymphocytes automated count (number/volume) 0.5 10*3 1.0-4.0 Blood monocytes automated count (number/volume) 0. 2 10*3 0.0-1.0 Automated eosinophil count 0.0 10*3/uL 0 .0-0.3 Automated blood basophil count (count/volume) 0.0 10*3/uL 0.0-0.1 Whole blood basic metabolic panel - 12/16 03:18 Serum or plasma sodium measurement (moles/volume) 142 mmol/L 135-145 Serum or plasma potassium measurement (moles/volume) 4.5 mmol/L 3.6-5.0 Serum or plasma chloride measurement (moles/volume) 97 mmol/L 98-107 Carbon dioxide 32 mmol/L 21-32 Serum or plasma anion gap determination (moles/volume) 13 mmol/L 5-14 Serum or plasma urea nitrogen measurement (mass/volume ) 21 mg/dL 7-18 Serum or plasma creatinine measurement (mass/volume) 0.71 mg/dL 0.60-1.30 Serum or plasma urea nitrogen/creatinine mass ratio 30 NRG Serum or plasma creatinine measurement w ith calculation of estimated glomerular filtration rate > NRG Serum or plasma glucose measurement (mass/volume) 252 mg/dL 70-105 Serum or plasma calcium measurement (mass/volume) 7.7 mg/dL 8.5-10.1 Serum or plasma phosphate measurement (m ass/volume) - 05/06/19 03:18 Serum or plasma phosphate measurement (mass/volume) 3.9 mg/dL 2.3-4.7 Magnesium - 05/06/19 03:18 Magnesium 1.9 mg/dL 1.6-2.4 Manual absolute plasma cell count - 12/16 03:18 Blood monocytes/100 leukocytes 1 % NRG Manual blood segmented neutrophils/100 leukocytes 95 % NRG Manual blood lymphocytes/100 leukocytes 4 % NRG Capillary blood glucose measurement by g lucometer (mass/volume) - 05/06/19 05:34 Capillary blood glucose measurement by glucometer (mas s/volume) 217 mg/dL 70-110 Capillary blood glucose measurement by g lucometer (mass/volume) - 05/06/19 11:45 Capillary blood glucose measurement by glucometer (mas s/volume) 217 mg/dL 70-110 Capillary blood glucose measurement by g lucometer (mass/volume) - 05/06/19 12:43 Capillary blood glucose measurement by glucometer (mas s/volume) 241 mg/dL 70-110 Capillary blood glucose measurement by g lucometer (mass/volume) - 05/06/19 16:16 Capillary blood glucose measurement by glucometer (mas s/volume) 271 mg/dL 70-110 Capillary blood glucose measurement by g lucometer (mass/volume) - 05/06/19 20:55 Capillary blood glucose measurement by glucometer (mas s/volume) 305 mg/dL 70-110 Complete blood count (CBC) with automate d white blood cell (WBC) differential - 05/07/19 04:50 Blood leukocytes automated count (number/volume) 11.9 10*3/uL 4.3-11.0 Blood erythrocytes automated count (number/volume) 4.11 10*6/uL 4.35-5.85 Venous blood hemoglobin measurement (mass/volume) 11.1 g/dL 11.5-16.0 Blood hematocrit (volume fraction) 40 % 35-52 Automated erythrocyte mean corpuscular volume 96 [ foz_us] 80-99 Automated erythrocyte mean corpuscular h emoglobin (mass per erythrocyte) 27 pg 25-34 Automated erythrocyte mean corpuscular h emoglobin concentration measurement (mass/volume) 28 g/dL 32-36 Automated erythrocyte distribution width ratio 15. 7 % 10.0- 14.5 Automated blood platelet count (count/volume) 160 10*3/uL 130-400 Automated blood platelet mean volume measurement 10.0 [foz_us] 7.4-10.4 Automated blood neutrophils/100 leukocytes 90 % 42-75 Automated blood lymphocytes/100 leukocytes 5 % 12-44 Blood monocytes/100 leukocytes 5 % 0-12 Automated blood eosinophils/100 leukocytes 0 % 0-10 Automated blood basophils/100 leukocytes 0 % 0-10 Blood neutrophils automated count (number/volume) 10.8 10*3 1.8-7.8 Blood lymphocytes automated count (number/volume) 0.6 10*3 1.0-4.0 Blood monocytes automated count (number/volume) 0. 5 10*3 0.0-1.0 Automated eosinophil count 0.0 10*3/uL 0 .0-0.3 Automated blood basophil count (count/volume) 0.0 10*3/uL 0.0-0.1 Whole blood basic metabolic panel - 01/16 04:50 Serum or plasma sodium measurement (moles/volume) 142 mmol/L 135-145 Serum or plasma potassium measurement (moles/volume) 5.1 mmol/L 3.6-5.0 Serum or plasma chloride measurement (moles/volume) 94 mmol/L 98-107 Carbon dioxide 37 mmol/L 21-32 Serum or plasma anion gap determination (moles/volume) 11 mmol/L 5-14 Serum or plasma urea nitrogen measurement (mass/volume ) 23 mg/dL 7-18 Serum or plasma creatinine measurement (mass/volume) 0.70 mg/dL 0.60-1.30 Serum or plasma urea nitrogen/creatinine mass ratio 33 NRG Serum or plasma creatinine measurement w ith calculation of estimated glomerular filtration rate > NRG Serum or plasma glucose measurement (mass/volume) 162 mg/dL 70-105 Serum or plasma calcium measurement (mass/volume) 7.9 mg/dL 8.5-10.1 Serum or plasma phosphate measurement (m ass/volume) - 05/07/19 04:50 Serum or plasma phosphate measurement (mass/volume) 3.9 mg/dL 2.3-4.7 Magnesium - 05/07/19 04:50 Magnesium 2.1 mg/dL 1.6-2.4 Capillary blood glucose measurement by g lucometer (mass/volume) - 05/07/19 10:33 Capillary blood glucose measurement by glucometer (mas s/volume) 196 mg/dL 70-110 Capillary blood glucose measurement by g lucometer (mass/volume) - 05/07/19 16:31 Capillary blood glucose measurement by glucometer (mas s/volume) 238 mg/dL 70-110 Capillary blood glucose measurement by g lucometer (mass/volume) - 05/07/19 20:58 Capillary blood glucose measurement by glucometer (mas s/volume) 324 mg/dL 70-110 Complete blood count (CBC) with automate d white blood cell (WBC) differential - 05/08/19 03:30 Blood leukocytes automated count (number/volume) 10.5 10*3/uL 4.3-11.0 Blood erythrocytes automated count (number/volume) 3.96 10*6/uL 4.35-5.85 Venous blood hemoglobin measurement (mass/volume) 10.8 g/dL 11.5-16.0 Blood hematocrit (volume fraction) 38 % 35-52 Automated erythrocyte mean corpuscular volume 96 [ foz_us] 80-99 Automated erythrocyte mean corpuscular h emoglobin (mass per erythrocyte) 27 pg 25-34 Automated erythrocyte mean corpuscular h emoglobin concentration measurement (mass/volume) 29 g/dL 32-36 Automated erythrocyte distribution width ratio 15. 2 % 10.0- 14.5 Automated blood platelet count (count/volume) 169 10*3/uL 130-400 Automated blood platelet mean volume measurement 10.0 [foz_us] 7.4-10.4 Automated blood neutrophils/100 leukocytes 89 % 42-75 Automated blood lymphocytes/100 leukocytes 5 % 12-44 Blood monocytes/100 leukocytes 6 % 0-12 Automated blood eosinophils/100 leukocytes 0 % 0-10 Automated blood basophils/100 leukocytes 0 % 0-10 Blood neutrophils automated count (number/volume) 9.4 10*3 1.8-7.8 Blood lymphocytes automated count (number/volume) 0.5 10*3 1.0-4.0 Blood monocytes automated count (number/volume) 0. 6 10*3 0.0-1.0 Automated eosinophil count 0.0 10*3/uL 0 .0-0.3 Automated blood basophil count (count/volume) 0.0 10*3/uL 0.0-0.1 Whole blood basic metabolic panel - 02/16 03:30 Serum or plasma sodium measurement (moles/volume) 142 mmol/L 135-145 Serum or plasma potassium measurement (moles/volume) 4.6 mmol/L 3.6-5.0 Serum or plasma chloride measurement (moles/volume) 92 mmol/L 98-107 Carbon dioxide 41 mmol/L 21-32 Serum or plasma anion gap determination (moles/volume) 9 mmol/L 5-14 Serum or plasma urea nitrogen measurement (mass/volume ) 24 mg/dL 7-18 Serum or plasma creatinine measurement (mass/volume) 0.76 mg/dL 0.60-1.30 Serum or plasma urea nitrogen/creatinine mass ratio 32 NRG Serum or plasma creatinine measurement w ith calculation of estimated glomerular filtration rate > NRG Serum or plasma glucose measurement (mass/volume) 168 mg/dL 70-105 Serum or plasma calcium measurement (mass/volume) 7.9 mg/dL 8.5-10.1 Serum or plasma phosphate measurement (m ass/volume) - 05/08/19 03:30 Serum or plasma phosphate measurement (mass/volume) 3.9 mg/dL 2.3-4.7 Magnesium - 05/08/19 03:30 Magnesium 2.0 mg/dL 1.6-2.4 Serum or plasma lithium measurement (mol es/volume) - 05/08/19 03:30 BNP PT 135.7 pg/mL <100.0 Capillary blood glucose measurement by g lucometer (mass/volume) - 05/08/19 06:14 Capillary blood glucose measurement by glucometer (mas s/volume) 153 mg/dL 70-110 Capillary blood glucose measurement by g lucometer (mass/volume) - 05/08/19 12:10 Capillary blood glucose measurement by glucometer (mas s/volume) 267 mg/dL 70-110 Capillary blood glucose measurement by g lucometer (mass/volume) - 05/08/19 15:40 Capillary blood glucose measurement by glucometer (mas s/volume) 288 mg/dL 70-110 Capillary blood glucose measurement by g lucometer (mass/volume) - 05/08/19 20:40 Capillary blood glucose measurement by glucometer (mas s/volume) 294 mg/dL 70-110 Whole blood basic metabolic panel - 04/30 03:40 Serum or plasma sodium measurement (moles/volume) 142 mmol/L 135-145 Serum or plasma potassium measurement (moles/volume) 5.4 mmol/L 3.6-5.0 Serum or plasma chloride measurement (moles/volume) 89 mmol/L 98-107 Carbon dioxide 41 mmol/L 21-32 Serum or plasma anion gap determination (moles/volume) 12 mmol/L 5-14 Serum or plasma urea nitrogen measurement (mass/volume ) 25 mg/dL 7-18 Serum or plasma creatinine measurement (mass/volume) 0.67 mg/dL 0.60-1.30 Serum or plasma urea nitrogen/creatinine mass ratio 37 NRG Serum or plasma creatinine measurement w ith calculation of estimated glomerular filtration rate > NRG Serum or plasma glucose measurement (mass/volume) 198 mg/dL 70-105 Serum or plasma calcium measurement (mass/volume) 7.7 mg/dL 8.5-10.1 Serum or plasma phosphate measurement (m ass/volume) - 05/09/19 03:40 Serum or plasma phosphate measurement (mass/volume) 4.6 mg/dL 2.3-4.7 Magnesium - 05/09/19 03:40 Magnesium 2.2 mg/dL 1.6-2.4 Capillary blood glucose measurement by g lucometer (mass/volume) - 05/09/19 06:31 Capillary blood glucose measurement by glucometer (mas s/volume) 216 mg/dL 70-110 Complete blood count (CBC) with automate d white blood cell (WBC) differential - 05/09/19 06:42 Blood leukocytes automated count (number/volume) 10.3 10*3/uL 4.3-11.0 Blood erythrocytes automated count (number/volume) 4.07 10*6/uL 4.35-5.85 Venous blood hemoglobin measurement (mass/volume) 11.2 g/dL 11.5-16.0 Blood hematocrit (volume fraction) 40 % 35-52 Automated erythrocyte mean corpuscular volume 99 [ foz_us] 80-99 Automated erythrocyte mean corpuscular h emoglobin (mass per erythrocyte) 28 pg 25-34 Automated erythrocyte mean corpuscular h emoglobin concentration measurement (mass/volume) 28 g/dL 32-36 Automated erythrocyte distribution width ratio 14. 8 % 10.0- 14.5 Automated blood platelet count (count/volume) 143 10*3/uL 130-400 Automated blood platelet mean volume measurement 10.1 [foz_us] 7.4-10.4 Automated blood neutrophils/100 leukocytes 90 % 42-75 Automated blood lymphocytes/100 leukocytes 5 % 12-44 Blood monocytes/100 leukocytes 5 % 0-12 Automated blood eosinophils/100 leukocytes 0 % 0-10 Automated blood basophils/100 leukocytes 0 % 0-10 Blood neutrophils automated count (number/volume) 9.3 10*3 1.8-7.8 Blood lymphocytes automated count (number/volume) 0.5 10*3 1.0-4.0 Blood monocytes automated count (number/volume) 0. 6 10*3 0.0-1.0 Automated eosinophil count 0.0 10*3/uL 0 .0-0.3 Automated blood basophil count (count/volume) 0.0 10*3/uL 0.0-0.1 Capillary blood glucose measurement by g lucometer (mass/volume) - 05/09/19 11:08 Capillary blood glucose measurement by glucometer (mas s/volume) 318 mg/dL 70-110 Methicillin resistant Staphylococcus aur eus (MRSA) screening culture - 05/09/19 18:40 Methicillin resistant Staphylococcus aureus (MRSA) scr eening culture NEG NRG Sputum Gram stain - 05/09/19 18:44 Sputum Gram stain Mixed Bacterial Joy NRG Bacterial sputum culture - 05/09/19 18:4 4 QUANTITY OF GROWTH . NRG Bacterial sputum culture USUAL RESP NRG Serum or plasma triglyceride measurement (mass/volume) - 05/09/19 19:20 Serum or plasma triglyceride measurement (mass/volume) 177 mg/dL <150 Arterial blood gas measurement - 9 21:54 Blood pCO2 59 mm[Hg] 35-45 Blood pO2 76 mm[Hg] 79-93 Arterial blood bicarbonate measurement (moles/volume) 46 mmol/L 23-27 Arterial blood base excess by calculation 20.5 mmo l/L -2.5-2.5 Arterial blood oxygen saturation measurement 96 % 94-100 * Inhaled oxygen flow rate 50 NRG Arterial blood pH measurement with patient temperature correction 7.50 7.37-7.43 Arterial blood carbon dioxide, total measurement (mole s/volume) 47.6 mmol/L 21.0-31.0 Body site RIGHT RADIAL NRG Assessment of wrist artery patency prior to arterial p uncture POSITIVE NRG Setting of ventilation mode YES NR G Measurement of body temperature 37 NRG Capillary blood glucose measurement by g lucometer (mass/volume) - 05/09/19 23:40 Capillary blood glucose measurement by glucometer (mas s/volume) 255 mg/dL 70-110 Capillary blood glucose measurement by g lucometer (mass/volume) - 05/10/19 00:16 Capillary blood glucose measurement by glucometer (mas s/volume) 259 mg/dL 70-110 Arterial blood gas measurement - 9 03:10 Blood pCO2 78 mm[Hg] 35-45 Blood pO2 84 mm[Hg] 79-93 Arterial blood bicarbonate measurement (moles/volume) 46 mmol/L 23-27 Arterial blood base excess by calculation 19.7 mmo l/L -2.5-2.5 Arterial blood oxygen saturation measurement 94 % 94-100 * Inhaled oxygen flow rate 50 NRG Arterial blood pH measurement with patient temperature correction 7.39 7.37-7.43 Arterial blood carbon dioxide, total measurement (mole s/volume) 48.3 mmol/L 21.0-31.0 Body site RIGHT RADIAL NRG Assessment of wrist artery patency prior to arterial p uncture POSITIVE NRG Setting of ventilation mode YES NR G Measurement of body temperature 37.2 NRG Complete blood count (CBC) with automate d white blood cell (WBC) differential - 05/10/19 03:30 Blood leukocytes automated count (number/volume) 7.6 10*3/uL 4.3-11.0 Blood erythrocytes automated count (number/volume) 3.84 10*6/uL 4.35-5.85 Venous blood hemoglobin measurement (mass/volume) 10.5 g/dL 11.5-16.0 Blood hematocrit (volume fraction) 36 % 35-52 Automated erythrocyte mean corpuscular volume 93 [ foz_us] 80-99 Automated erythrocyte mean corpuscular h emoglobin (mass per erythrocyte) 27 pg 25-34 Automated erythrocyte mean corpuscular h emoglobin concentration measurement (mass/volume) 29 g/dL 32-36 Automated erythrocyte distribution width ratio 14. 5 % 10.0- 14.5 Automated blood platelet count (count/volume) 126 10*3/uL 130-400 Automated blood platelet mean volume measurement 10.9 [foz_us] 7.4-10.4 Automated blood neutrophils/100 leukocytes 84 % 42-75 Automated blood lymphocytes/100 leukocytes 6 % 12-44 Blood monocytes/100 leukocytes 10 % 0-12 Automated blood eosinophils/100 leukocytes 0 % 0-10 Automated blood basophils/100 leukocytes 0 % 0-10 Blood neutrophils automated count (number/volume) 6.4 10*3 1.8-7.8 Blood lymphocytes automated count (number/volume) 0.5 10*3 1.0-4.0 Blood monocytes automated count (number/volume) 0. 7 10*3 0.0-1.0 Automated eosinophil count 0.0 10*3/uL 0 .0-0.3 Automated blood basophil count (count/volume) 0.0 10*3/uL 0.0-0.1 Comprehensive metabolic panel - 05/10/19 03:30 Serum or plasma sodium measurement (moles/volume) 141 mmol/L 135-145 Serum or plasma potassium measurement (moles/volume) 4.8 mmol/L 3.6-5.0 Serum or plasma chloride measurement (moles/volume) 92 mmol/L 98-107 Carbon dioxide 36 mmol/L 21-32 Serum or plasma anion gap determination (moles/volume) 13 mmol/L 5-14 Serum or plasma urea nitrogen measurement (mass/volume ) 23 mg/dL 7-18 Serum or plasma creatinine measurement (mass/volume) 0.75 mg/dL 0.60-1.30 Serum or plasma urea nitrogen/creatinine mass ratio 31 NRG Serum or plasma creatinine measurement w ith calculation of estimated glomerular filtration rate > NRG Serum or plasma glucose measurement (mass/volume) 194 mg/dL 70-105 Serum or plasma calcium measurement (mass/volume) 7.7 mg/dL 8.5-10.1 Serum or plasma total bilirubin measurement (mass/volu me) 0.2 mg/dL 0.1-1.0 Serum or plasma alkaline phosphatase gil surement (enzymatic activity/volume) 63 U/L 40-136 Serum or plasma aspartate aminotransfera se measurement (enzymatic activity/volume) 13 U/L 5-34 Serum or plasma alanine aminotransferase measurement (enzymatic activity/volume) 19 U/L 0-55 Serum or plasma protein measurement (mass/volume) 5.6 g/dL 6.4-8.2 Serum or plasma albumin measurement (mass/volume) 3.5 g/dL 3.2-4.5 CALCIUM CORRECTED 8.1 mg/dL 8.5-10.1 Serum or plasma phosphate measurement (m ass/volume) - 05/10/19 03:30 Serum or plasma phosphate measurement (mass/volume) 4.0 mg/dL 2.3-4.7 Magnesium - 05/10/19 03:30 Magnesium 2.0 mg/dL 1.6-2.4 Serum or plasma lithium measurement (mol es/volume) - 05/10/19 03:30 BNP PT 55.3 pg/mL <100.0 Capillary blood glucose measurement by g lucometer (mass/volume) - 05/10/19 11:20 Capillary blood glucose measurement by glucometer (mas s/volume) 219 mg/dL 70-110 Arterial blood gas measurement - 9 15:20 Blood pCO2 64 mm[Hg] 35-45 Blood pO2 113 mm[Hg] 79-93 Arterial blood bicarbonate measurement (moles/volume) 46 mmol/L 23-27 Arterial blood base excess by calculation 20.7 mmo l/L -2.5-2.5 Arterial blood oxygen saturation measurement 98 % 94-100 * Inhaled oxygen flow rate 70% NRG Arterial blood pH measurement with patient temperature correction 7.47 7.37-7.43 Arterial blood carbon dioxide, total measurement (mole s/volume) 48.3 mmol/L 21.0-31.0 Body site UNK NRG Assessment of wrist artery patency prior to arterial p uncture UNK NRG Setting of ventilation mode YES NR G Measurement of body temperature 36.4 NRG Capillary blood glucose measurement by g lucometer (mass/volume) - 05/10/19 18:12 Capillary blood glucose measurement by glucometer (mas s/volume) 183 mg/dL 70-110 Capillary blood glucose measurement by g lucometer (mass/volume) - 05/10/19 23:51 Capillary blood glucose measurement by glucometer (mas s/volume) 230 mg/dL 70-110 Complete blood count (CBC) with automate d white blood cell (WBC) differential - 05/11/19 03:20 Blood leukocytes automated count (number/volume) 10.7 10*3/uL 4.3-11.0 Blood erythrocytes automated count (number/volume) 3.90 10*6/uL 4.35-5.85 Venous blood hemoglobin measurement (mass/volume) 10.8 g/dL 11.5-16.0 Blood hematocrit (volume fraction) 37 % 35-52 Automated erythrocyte mean corpuscular volume 94 [ foz_us] 80-99 Automated erythrocyte mean corpuscular h emoglobin (mass per erythrocyte) 28 pg 25-34 Automated erythrocyte mean corpuscular h emoglobin concentration measurement (mass/volume) 29 g/dL 32-36 Automated erythrocyte distribution width ratio 15. 0 % 10.0- 14.5 Automated blood platelet count (count/volume) 154 10*3/uL 130-400 Automated blood platelet mean volume measurement 10.5 [foz_us] 7.4-10.4 Automated blood neutrophils/100 leukocytes 87 % 42-75 Automated blood lymphocytes/100 leukocytes 5 % 12-44 Blood monocytes/100 leukocytes 9 % 0-12 Automated blood eosinophils/100 leukocytes 0 % 0-10 Automated blood basophils/100 leukocytes 0 % 0-10 Blood neutrophils automated count (number/volume) 9.2 10*3 1.8-7.8 Blood lymphocytes automated count (number/volume) 0.5 10*3 1.0-4.0 Blood monocytes automated count (number/volume) 0. 9 10*3 0.0-1.0 Automated eosinophil count 0.0 10*3/uL 0 .0-0.3 Automated blood basophil count (count/volume) 0.0 10*3/uL 0.0-0.1 Comprehensive metabolic panel - 05/11/19 03:20 Serum or plasma sodium measurement (moles/volume) 141 mmol/L 135-145 Serum or plasma potassium measurement (moles/volume) 4.1 mmol/L 3.6-5.0 Serum or plasma chloride measurement (moles/volume) 89 mmol/L 98-107 Carbon dioxide 38 mmol/L 21-32 Serum or plasma anion gap determination (moles/volume) 14 mmol/L 5-14 Serum or plasma urea nitrogen measurement (mass/volume ) 31 mg/dL 7-18 Serum or plasma creatinine measurement (mass/volume) 0.74 mg/dL 0.60-1.30 Serum or plasma urea nitrogen/creatinine mass ratio 42 NRG Serum or plasma creatinine measurement w ith calculation of estimated glomerular filtration rate > NRG Serum or plasma glucose measurement (mass/volume) 149 mg/dL 70-105 Serum or plasma calcium measurement (mass/volume) 7.7 mg/dL 8.5-10.1 Serum or plasma total bilirubin measurement (mass/volu me) 0.6 mg/dL 0.1-1.0 Serum or plasma alkaline phosphatase gil surement (enzymatic activity/volume) 61 U/L 40-136 Serum or plasma aspartate aminotransfera se measurement (enzymatic activity/volume) 10 U/L 5-34 Serum or plasma alanine aminotransferase measurement (enzymatic activity/volume) 15 U/L 0-55 Serum or plasma protein measurement (mass/volume) 5.5 g/dL 6.4-8.2 Serum or plasma albumin measurement (mass/volume) 3.6 g/dL 3.2-4.5 CALCIUM CORRECTED 8.0 mg/dL 8.5-10.1 Serum or plasma phosphate measurement (m ass/volume) - 05/11/19 03:20 Serum or plasma phosphate measurement (mass/volume) 4.9 mg/dL 2.3-4.7 Magnesium - 05/11/19 03:20 Magnesium 2.3 mg/dL 1.6-2.4 Serum or plasma triglyceride measurement (mass/volume) - 05/11/19 03:20 Serum or plasma triglyceride measurement (mass/volume) 133 mg/dL <150 Capillary blood glucose measurement by g lucometer (mass/volume) - 05/11/19 16:03 Capillary blood glucose measurement by glucometer (mas s/volume) 299 mg/dL 70-110 Capillary blood glucose measurement by g lucometer (mass/volume) - 05/11/19 20:39 Capillary blood glucose measurement by glucometer (mas s/volume) 259 mg/dL 70-110 Complete blood count (CBC) with automate d white blood cell (WBC) differential - 05/12/19 03:40 Blood leukocytes automated count (number/volume) 10.3 10*3/uL 4.3-11.0 Blood erythrocytes automated count (number/volume) 3.74 10*6/uL 4.35-5.85 Venous blood hemoglobin measurement (mass/volume) 10.3 g/dL 11.5-16.0 Blood hematocrit (volume fraction) 34 % 35-52 Automated erythrocyte mean corpuscular volume 91 [ foz_us] 80-99 Automated erythrocyte mean corpuscular h emoglobin (mass per erythrocyte) 28 pg 25-34 Automated erythrocyte mean corpuscular h emoglobin concentration measurement (mass/volume) 30 g/dL 32-36 Automated erythrocyte distribution width ratio 15. 0 % 10.0- 14.5 Automated blood platelet count (count/volume) 151 10*3/uL 130-400 Automated blood platelet mean volume measurement 9.9 [foz_us] 7.4-10.4 Automated blood neutrophils/100 leukocytes 90 % 42-75 Automated blood lymphocytes/100 leukocytes 5 % 12-44 Blood monocytes/100 leukocytes 5 % 0-12 Automated blood eosinophils/100 leukocytes 0 % 0-10 Automated blood basophils/100 leukocytes 0 % 0-10 Blood neutrophils automated count (number/volume) 9.3 10*3 1.8-7.8 Blood lymphocytes automated count (number/volume) 0.5 10*3 1.0-4.0 Blood monocytes automated count (number/volume) 0. 5 10*3 0.0-1.0 Automated eosinophil count 0.0 10*3/uL 0 .0-0.3 Automated blood basophil count (count/volume) 0.0 10*3/uL 0.0-0.1 Comprehensive metabolic panel - 05/12/19 03:40 Serum or plasma sodium measurement (moles/volume) 141 mmol/L 135-145 Serum or plasma potassium measurement (moles/volume) 3.9 mmol/L 3.6-5.0 Serum or plasma chloride measurement (moles/volume) 90 mmol/L 98-107 Carbon dioxide 35 mmol/L 21-32 Serum or plasma anion gap determination (moles/volume) 16 mmol/L 5-14 Serum or plasma urea nitrogen measurement (mass/volume ) 37 mg/dL 7-18 Serum or plasma creatinine measurement (mass/volume) 0.75 mg/dL 0.60-1.30 Serum or plasma urea nitrogen/creatinine mass ratio 49 NRG Serum or plasma creatinine measurement w ith calculation of estimated glomerular filtration rate > NRG Serum or plasma glucose measurement (mass/volume) 240 mg/dL 70-105 Serum or plasma calcium measurement (mass/volume) 7.5 mg/dL 8.5-10.1 Serum or plasma total bilirubin measurement (mass/volu me) 0.5 mg/dL 0.1-1.0 Serum or plasma alkaline phosphatase gil surement (enzymatic activity/volume) 58 U/L 40-136 Serum or plasma aspartate aminotransfera se measurement (enzymatic activity/volume) 10 U/L 5-34 Serum or plasma alanine aminotransferase measurement (enzymatic activity/volume) 10 U/L 0-55 Serum or plasma protein measurement (mass/volume) 5.5 g/dL 6.4-8.2 Serum or plasma albumin measurement (mass/volume) 3.4 g/dL 3.2-4.5 CALCIUM CORRECTED 8.0 mg/dL 8.5-10.1 Serum or plasma phosphate measurement (m ass/volume) - 05/12/19 03:40 Serum or plasma phosphate measurement (mass/volume) 4.5 mg/dL 2.3-4.7 Magnesium - 05/12/19 03:40 Magnesium 2.3 mg/dL 1.6-2.4 Capillary blood glucose measurement by g lucometer (mass/volume) - 05/12/19 11:44 Capillary blood glucose measurement by glucometer (mas s/volume) 288 mg/dL 70-110 Capillary blood glucose measurement by g lucometer (mass/volume) - 05/12/19 16:06 Capillary blood glucose measurement by glucometer (mas s/volume) 295 mg/dL 70-110 Capillary blood glucose measurement by g lucometer (mass/volume) - 05/12/19 20:39 Capillary blood glucose measurement by glucometer (mas s/volume) 272 mg/dL 70-110 Capillary blood glucose measurement by g lucometer (mass/volume) - 05/13/19 05:21 Capillary blood glucose measurement by glucometer (mas s/volume) 231 mg/dL 70-110 Complete blood count (CBC) with automate d white blood cell (WBC) differential - 05/13/19 05:22 Blood leukocytes automated count (number/volume) 10.2 10*3/uL 4.3-11.0 Blood erythrocytes automated count (number/volume) 3.52 10*6/uL 4.35-5.85 Venous blood hemoglobin measurement (mass/volume) 9.7 g/dL 11.5-16.0 Blood hematocrit (volume fraction) 32 % 35-52 Automated erythrocyte mean corpuscular volume 91 [ foz_us] 80-99 Automated erythrocyte mean corpuscular h emoglobin (mass per erythrocyte) 28 pg 25-34 Automated erythrocyte mean corpuscular h emoglobin concentration measurement (mass/volume) 30 g/dL 32-36 Automated erythrocyte distribution width ratio 14. 7 % 10.0- 14.5 Automated blood platelet count (count/volume) 155 10*3/uL 130-400 Automated blood platelet mean volume measurement 10.5 [foz_us] 7.4-10.4 Automated blood neutrophils/100 leukocytes 91 % 42-75 Automated blood lymphocytes/100 leukocytes 5 % 12-44 Blood monocytes/100 leukocytes 5 % 0-12 Automated blood eosinophils/100 leukocytes 0 % 0-10 Automated blood basophils/100 leukocytes 0 % 0-10 Blood neutrophils automated count (number/volume) 9.3 10*3 1.8-7.8 Blood lymphocytes automated count (number/volume) 0.5 10*3 1.0-4.0 Blood monocytes automated count (number/volume) 0. 5 10*3 0.0-1.0 Automated eosinophil count 0.0 10*3/uL 0 .0-0.3 Automated blood basophil count (count/volume) 0.0 10*3/uL 0.0-0.1 Comprehensive metabolic panel - 05/13/19 05:22 Serum or plasma sodium measurement (moles/volume) 140 mmol/L 135-145 Serum or plasma potassium measurement (moles/volume) 3.9 mmol/L 3.6-5.0 Serum or plasma chloride measurement (moles/volume) 93 mmol/L 98-107 Carbon dioxide 35 mmol/L 21-32 Serum or plasma anion gap determination (moles/volume) 12 mmol/L 5-14 Serum or plasma urea nitrogen measurement (mass/volume ) 32 mg/dL 7-18 Serum or plasma creatinine measurement (mass/volume) 0.74 mg/dL 0.60-1.30 Serum or plasma urea nitrogen/creatinine mass ratio 43 NRG Serum or plasma creatinine measurement w ith calculation of estimated glomerular filtration rate > NRG Serum or plasma glucose measurement (mass/volume) 240 mg/dL 70-105 Serum or plasma calcium measurement (mass/volume) 7.7 mg/dL 8.5-10.1 Serum or plasma total bilirubin measurement (mass/volu me) 0.5 mg/dL 0.1-1.0 Serum or plasma alkaline phosphatase gil surement (enzymatic activity/volume) 52 U/L 40-136 Serum or plasma aspartate aminotransfera se measurement (enzymatic activity/volume) 10 U/L 5-34 Serum or plasma alanine aminotransferase measurement (enzymatic activity/volume) 15 U/L 0-55 Serum or plasma protein measurement (mass/volume) 5.3 g/dL 6.4-8.2 Serum or plasma albumin measurement (mass/volume) 3.5 g/dL 3.2-4.5 CALCIUM CORRECTED 8.1 mg/dL 8.5-10.1 Serum or plasma phosphate measurement (m ass/volume) - 05/13/19 05:22 Serum or plasma phosphate measurement (mass/volume) 4.1 mg/dL 2.3-4.7 Magnesium - 05/13/19 05:22 Magnesium 2.2 mg/dL 1.6-2.4 Serum or plasma triglyceride measurement (mass/volume) - 05/13/19 05:22 Serum or plasma triglyceride measurement (mass/volume) 90 mg/dL <150 Capillary blood glucose measurement by g lucometer (mass/volume) - 05/13/19 11:37 Capillary blood glucose measurement by glucometer (mas s/volume) 315 mg/dL 70-110 Capillary blood glucose measurement by g lucometer (mass/volume) - 05/13/19 15:51 Capillary blood glucose measurement by glucometer (mas s/volume) 323 mg/dL 70-110 Capillary blood glucose measurement by g lucometer (mass/volume) - 05/13/19 20:29 Capillary blood glucose measurement by glucometer (mas s/volume) 305 mg/dL 70-110 Complete blood count (CBC) with automate d white blood cell (WBC) differential - 05/14/19 05:26 Blood leukocytes automated count (number/volume) 11.0 10*3/uL 4.3-11.0 Blood erythrocytes automated count (number/volume) 3.53 10*6/uL 4.35-5.85 Venous blood hemoglobin measurement (mass/volume) 9.6 g/dL 11.5-16.0 Blood hematocrit (volume fraction) 32 % 35-52 Automated erythrocyte mean corpuscular volume 90 [ foz_us] 80-99 Automated erythrocyte mean corpuscular h emoglobin (mass per erythrocyte) 27 pg 25-34 Automated erythrocyte mean corpuscular h emoglobin concentration measurement (mass/volume) 30 g/dL 32-36 Automated erythrocyte distribution width ratio 14. 9 % 10.0- 14.5 Automated blood platelet count (count/volume) 175 10*3/uL 130-400 Automated blood platelet mean volume measurement 9.8 [foz_us] 7.4-10.4 Automated blood neutrophils/100 leukocytes 90 % 42-75 Automated blood lymphocytes/100 leukocytes 4 % 12-44 Blood monocytes/100 leukocytes 6 % 0-12 Automated blood eosinophils/100 leukocytes 0 % 0-10 Automated blood basophils/100 leukocytes 0 % 0-10 Blood neutrophils automated count (number/volume) 9.9 10*3 1.8-7.8 Blood lymphocytes automated count (number/volume) 0.4 10*3 1.0-4.0 Blood monocytes automated count (number/volume) 0. 7 10*3 0.0-1.0 Automated eosinophil count 0.0 10*3/uL 0 .0-0.3 Automated blood basophil count (count/volume) 0.0 10*3/uL 0.0-0.1 Comprehensive metabolic panel - 05/14/19 05:26 Serum or plasma sodium measurement (moles/volume) 139 mmol/L 135-145 Serum or plasma potassium measurement (moles/volume) 4.0 mmol/L 3.6-5.0 Serum or plasma chloride measurement (moles/volume) 93 mmol/L 98-107 Carbon dioxide 31 mmol/L 21-32 Serum or plasma anion gap determination (moles/volume) 15 mmol/L 5-14 Serum or plasma urea nitrogen measurement (mass/volume ) 33 mg/dL 7-18 Serum or plasma creatinine measurement (mass/volume) 0.75 mg/dL 0.60-1.30 Serum or plasma urea nitrogen/creatinine mass ratio 44 NRG Serum or plasma creatinine measurement w ith calculation of estimated glomerular filtration rate > NRG Serum or plasma glucose measurement (mass/volume) 337 mg/dL 70-105 Serum or plasma calcium measurement (mass/volume) 7.5 mg/dL 8.5-10.1 Serum or plasma total bilirubin measurement (mass/volu me) 0.3 mg/dL 0.1-1.0 Serum or plasma alkaline phosphatase gil surement (enzymatic activity/volume) 60 U/L 40-136 Serum or plasma aspartate aminotransfera se measurement (enzymatic activity/volume) 9 U/L 5-34 Serum or plasma alanine aminotransferase measurement (enzymatic activity/volume) 15 U/L 0-55 Serum or plasma protein measurement (mass/volume) 5.4 g/dL 6.4-8.2 Serum or plasma albumin measurement (mass/volume) 3.4 g/dL 3.2-4.5 CALCIUM CORRECTED 8.0 mg/dL 8.5-10.1 Serum or plasma phosphate measurement (m ass/volume) - 05/14/19 05:26 Serum or plasma phosphate measurement (mass/volume) 4.0 mg/dL 2.3-4.7 Magnesium - 05/14/19 05:26 Magnesium 2.2 mg/dL 1.6-2.4 Capillary blood glucose measurement by g lucometer (mass/volume) - 05/14/19 05:44 Capillary blood glucose measurement by glucometer (mas s/volume) 337 mg/dL 70-110 Capillary blood glucose measurement by g lucometer (mass/volume) - 05/14/19 11:35 Capillary blood glucose measurement by glucometer (mas s/volume) 280 mg/dL 70-110 Capillary blood glucose measurement by g lucometer (mass/volume) - 05/14/19 15:43 Capillary blood glucose measurement by glucometer (mas s/volume) 317 mg/dL 70-110 Capillary blood glucose measurement by g lucometer (mass/volume) - 05/14/19 20:34 Capillary blood glucose measurement by glucometer (mas s/volume) 323 mg/dL 70-110 Comprehensive metabolic panel - 05/15/19 04:45 Serum or plasma sodium measurement (moles/volume) 139 mmol/L 135-145 Serum or plasma potassium measurement (moles/volume) 3.9 mmol/L 3.6-5.0 Serum or plasma chloride measurement (moles/volume) 91 mmol/L 98-107 Carbon dioxide 36 mmol/L 21-32 Serum or plasma anion gap determination (moles/volume) 12 mmol/L 5-14 Serum or plasma urea nitrogen measurement (mass/volume ) 28 mg/dL 7-18 Serum or plasma creatinine measurement (mass/volume) 0.78 mg/dL 0.60-1.30 Serum or plasma urea nitrogen/creatinine mass ratio 36 NRG Serum or plasma creatinine measurement w ith calculation of estimated glomerular filtration rate > NRG Serum or plasma glucose measurement (mass/volume) 245 mg/dL 70-105 Serum or plasma calcium measurement (mass/volume) 7.8 mg/dL 8.5-10.1 Serum or plasma total bilirubin measurement (mass/volu me) 0.5 mg/dL 0.1-1.0 Serum or plasma alkaline phosphatase gil surement (enzymatic activity/volume) 58 U/L 40-136 Serum or plasma aspartate aminotransfera se measurement (enzymatic activity/volume) 12 U/L 5-34 Serum or plasma alanine aminotransferase measurement (enzymatic activity/volume) 18 U/L 0-55 Serum or plasma protein measurement (mass/volume) 5.4 g/dL 6.4-8.2 Serum or plasma albumin measurement (mass/volume) 3.5 g/dL 3.2-4.5 CALCIUM CORRECTED 8.2 mg/dL 8.5-10.1 Serum or plasma phosphate measurement (m ass/volume) - 05/15/19 04:45 Serum or plasma phosphate measurement (mass/volume) 4.2 mg/dL 2.3-4.7 Magnesium - 05/15/19 04:45 Magnesium 2.1 mg/dL 1.6-2.4 Serum or plasma triglyceride measurement (mass/volume) - 05/15/19 04:45 Serum or plasma triglyceride measurement (mass/volume) 125 mg/dL <150 Complete blood count (CBC) with automate d white blood cell (WBC) differential - 05/15/19 04:55 Blood leukocytes automated count (number/volume) 12.5 10*3/uL 4.3-11.0 Blood erythrocytes automated count (number/volume) 3.55 10*6/uL 4.35-5.85 Venous blood hemoglobin measurement (mass/volume) 9.8 g/dL 11.5-16.0 Blood hematocrit (volume fraction) 33 % 35-52 Automated erythrocyte mean corpuscular volume 92 [ foz_us] 80-99 Automated erythrocyte mean corpuscular h emoglobin (mass per erythrocyte) 28 pg 25-34 Automated erythrocyte mean corpuscular h emoglobin concentration measurement (mass/volume) 30 g/dL 32-36 Automated erythrocyte distribution width ratio 14. 7 % 10.0- 14.5 Automated blood platelet count (count/volume) 194 10*3/uL 130-400 Automated blood platelet mean volume measurement 10.8 [foz_us] 7.4-10.4 Automated blood neutrophils/100 leukocytes 86 % 42-75 Automated blood lymphocytes/100 leukocytes 5 % 12-44 Blood monocytes/100 leukocytes 8 % 0-12 Automated blood eosinophils/100 leukocytes 0 % 0-10 Automated blood basophils/100 leukocytes 0 % 0-10 Blood neutrophils automated count (number/volume) 10.8 10*3 1.8-7.8 Blood lymphocytes automated count (number/volume) 0.7 10*3 1.0-4.0 Blood monocytes automated count (number/volume) 1. 0 10*3 0.0-1.0 Automated eosinophil count 0.0 10*3/uL 0 .0-0.3 Automated blood basophil count (count/volume) 0.0 10*3/uL 0.0-0.1 Capillary blood glucose measurement by g lucometer (mass/volume) - 05/15/19 05:13 Capillary blood glucose measurement by glucometer (mas s/volume) 244 mg/dL 70-110 Capillary blood glucose measurement by g lucometer (mass/volume) - 05/15/19 11:27 Capillary blood glucose measurement by glucometer (mas s/volume) 271 mg/dL 70-110 Capillary blood glucose measurement by g lucometer (mass/volume) - 05/15/19 16:27 Capillary blood glucose measurement by glucometer (mas s/volume) 276 mg/dL 70-110 Capillary blood glucose measurement by g lucometer (mass/volume) - 05/15/19 20:31 Capillary blood glucose measurement by glucometer (mas s/volume) 343 mg/dL 70-110 Complete blood count (CBC) with automate d white blood cell (WBC) differential - 05/16/19 04:04 Blood leukocytes automated count (number/volume) 17.1 10*3/uL 4.3-11.0 Blood erythrocytes automated count (number/volume) 3.23 10*6/uL 4.35-5.85 Venous blood hemoglobin measurement (mass/volume) 8.9 g/dL 11.5-16.0 Blood hematocrit (volume fraction) 29 % 35-52 Automated erythrocyte mean corpuscular volume 90 [ foz_us] 80-99 Automated erythrocyte mean corpuscular h emoglobin (mass per erythrocyte) 28 pg 25-34 Automated erythrocyte mean corpuscular h emoglobin concentration measurement (mass/volume) 31 g/dL 32-36 Automated erythrocyte distribution width ratio 14. 9 % 10.0- 14.5 Automated blood platelet count (count/volume) 237 10*3/uL 130-400 Automated blood platelet mean volume measurement 10.3 [foz_us] 7.4-10.4 Automated blood neutrophils/100 leukocytes 86 % 42-75 Automated blood lymphocytes/100 leukocytes 5 % 12-44 Blood monocytes/100 leukocytes 9 % 0-12 Automated blood eosinophils/100 leukocytes 0 % 0-10 Automated blood basophils/100 leukocytes 0 % 0-10 Blood neutrophils automated count (number/volume) 14.7 10*3 1.8-7.8 Blood lymphocytes automated count (number/volume) 0.9 10*3 1.0-4.0 Blood monocytes automated count (number/volume) 1. 5 10*3 0.0-1.0 Automated eosinophil count 0.0 10*3/uL 0 .0-0.3 Automated blood basophil count (count/volume) 0.0 10*3/uL 0.0-0.1 Comprehensive metabolic panel - 05/16/19 04:04 Serum or plasma sodium measurement (moles/volume) 136 mmol/L 135-145 Serum or plasma potassium measurement (moles/volume) 3.9 mmol/L 3.6-5.0 Serum or plasma chloride measurement (moles/volume) 87 mmol/L 98-107 Carbon dioxide 33 mmol/L 21-32 Serum or plasma anion gap determination (moles/volume) 16 mmol/L 5-14 Serum or plasma urea nitrogen measurement (mass/volume ) 41 mg/dL 7-18 Serum or plasma creatinine measurement (mass/volume) 1.18 mg/dL 0.60-1.30 Serum or plasma urea nitrogen/creatinine mass ratio 35 NRG Serum or plasma creatinine measurement w ith calculation of estimated glomerular filtration rate 45 NRG Serum or plasma glucose measurement (mass/volume) 381 mg/dL 70-105 Serum or plasma calcium measurement (mass/volume) 7.4 mg/dL 8.5-10.1 Serum or plasma total bilirubin measurement (mass/volu me) 0.5 mg/dL 0.1-1.0 Serum or plasma alkaline phosphatase gil surement (enzymatic activity/volume) 61 U/L 40-136 Serum or plasma aspartate aminotransfera se measurement (enzymatic activity/volume) 8 U/L 5-34 Serum or plasma alanine aminotransferase measurement (enzymatic activity/volume) 18 U/L 0-55 Serum or plasma protein measurement (mass/volume) 5.4 g/dL 6.4-8.2 Serum or plasma albumin measurement (mass/volume) 3.5 g/dL 3.2-4.5 CALCIUM CORRECTED 7.8 mg/dL 8.5-10.1 Serum or plasma phosphate measurement (m ass/volume) - 05/16/19 04:04 Serum or plasma phosphate measurement (mass/volume) 4.9 mg/dL 2.3-4.7 Magnesium - 05/16/19 04:04 Magnesium 2.1 mg/dL 1.6-2.4 Manual absolute plasma cell count - 04/30 12/16 04:04 Blood monocytes/100 leukocytes 7 % NRG Manual blood segmented neutrophils/100 leukocytes 80 % NRG Blood band neutrophils/100 leukocytes 4 % NRG Manual blood lymphocytes/100 leukocytes 9 % NRG Blood erythrocyte morphology finding identification NORMAL NRG Capillary blood glucose measurement by g lucometer (mass/volume) - 05/16/19 05:40 Capillary blood glucose measurement by glucometer (mas s/volume) 332 mg/dL 70-110 Capillary blood glucose measurement by g lucometer (mass/volume) - 05/16/19 08:58 Capillary blood glucose measurement by glucometer (mas s/volume) 375 mg/dL 70-110 Capillary blood glucose measurement by g lucometer (mass/volume) - 05/16/19 11:14 Capillary blood glucose measurement by glucometer (mas s/volume) 267 mg/dL 70-110 Bacterial blood culture - 05/16/19 14:00 Bacterial blood culture NG NRG Complete blood count (CBC) with automate d white blood cell (WBC) differential - 05/16/19 14:20 Blood leukocytes automated count (number/volume) 24.9 10*3/uL 4.3-11.0 Blood erythrocytes automated count (number/volume) 2.83 10*6/uL 4.35-5.85 Venous blood hemoglobin measurement (mass/volume) 7.9 g/dL 11.5-16.0 Blood hematocrit (volume fraction) 25 % 35-52 Automated erythrocyte mean corpuscular volume 89 [ foz_us] 80-99 Automated erythrocyte mean corpuscular h emoglobin (mass per erythrocyte) 28 pg 25-34 Automated erythrocyte mean corpuscular h emoglobin concentration measurement (mass/volume) 31 g/dL 32-36 Automated erythrocyte distribution width ratio 14. 9 % 10.0- 14.5 Automated blood platelet count (count/volume) 286 10*3/uL 130-400 Automated blood platelet mean volume measurement 10.2 [foz_us] 7.4-10.4 Automated blood neutrophils/100 leukocytes 89 % 42-75 Automated blood lymphocytes/100 leukocytes 5 % 12-44 Blood monocytes/100 leukocytes 7 % 0-12 Automated blood eosinophils/100 leukocytes 0 % 0-10 Automated blood basophils/100 leukocytes 0 % 0-10 Blood neutrophils automated count (number/volume) 22.1 10*3 1.8-7.8 Blood lymphocytes automated count (number/volume) 1.1 10*3 1.0-4.0 Blood monocytes automated count (number/volume) 1. 6 10*3 0.0-1.0 Automated eosinophil count 0.0 10*3/uL 0 .0-0.3 Automated blood basophil count (count/volume) 0.0 10*3/uL 0.0-0.1 Blood lactic acid measurement (moles/vol ume) - 05/16/19 14:20 Blood lactic acid measurement (moles/volume) 3.01 mmol/L 0.50-2.00 Comprehensive metabolic panel - 05/16/19 14:20 Serum or plasma sodium measurement (moles/volume) 133 mmol/L 135-145 Serum or plasma potassium measurement (moles/volume) 4.1 mmol/L 3.6-5.0 Serum or plasma chloride measurement (moles/volume) 88 mmol/L 98-107 Carbon dioxide 28 mmol/L 21-32 Serum or plasma anion gap determination (moles/volume) 17 mmol/L 5-14 Serum or plasma urea nitrogen measurement (mass/volume ) 46 mg/dL 7-18 Serum or plasma creatinine measurement (mass/volume) 1.00 mg/dL 0.60-1.30 Serum or plasma urea nitrogen/creatinine mass ratio 46 NRG Serum or plasma creatinine measurement w ith calculation of estimated glomerular filtration rate 55 NRG Serum or plasma glucose measurement (mass/volume) 272 mg/dL 70-105 Serum or plasma calcium measurement (mass/volume) 7.5 mg/dL 8.5-10.1 Serum or plasma total bilirubin measurement (mass/volu me) 0.5 mg/dL 0.1-1.0 Serum or plasma alkaline phosphatase gil surement (enzymatic activity/volume) 64 U/L 40-136 Serum or plasma aspartate aminotransfera se measurement (enzymatic activity/volume) 9 U/L 5-34 Serum or plasma alanine aminotransferase measurement (enzymatic activity/volume) 18 U/L 0-55 Serum or plasma protein measurement (mass/volume) 5.4 g/dL 6.4-8.2 Serum or plasma albumin measurement (mass/volume) 3.5 g/dL 3.2-4.5 CALCIUM CORRECTED 7.9 mg/dL 8.5-10.1 Serum or plasma phosphate measurement (m ass/volume) - 05/16/19 14:20 Serum or plasma phosphate measurement (mass/volume) 5.1 mg/dL 2.3-4.7 Magnesium - 05/16/19 14:20 Magnesium 2.0 mg/dL 1.6-2.4 Manual absolute plasma cell count - 04/30 12/16 14:20 Blood monocytes/100 leukocytes 5 % NRG Manual blood segmented neutrophils/100 leukocytes 86 % NRG Blood band neutrophils/100 leukocytes 1 % NRG Manual blood lymphocytes/100 leukocytes 8 % NRG Blood anisocytosis detection by light microscopy S LIGHT NRG Manual blood nucleated erythrocytes/100 leukocytes ratio 2 NRG Blood dacrocytes detection by light microscopy SLI GHT NRG Blood helmet cells detection by light microscopy S LIGHT NRG Bacterial blood culture - 05/16/19 14:20 Bacterial blood culture NG NRG Bacterial blood culture - 05/16/19 14:35 Bacterial blood culture NG NRG Capillary blood glucose measurement by g lucometer (mass/volume) - 05/16/19 15:51 Capillary blood glucose measurement by glucometer (mas s/volume) 258 mg/dL 70-110 Serum or plasma lactate measurement (mol es/volume) - 05/16/19 16:50 Serum or plasma lactate measurement (moles/volume) 2.13 mmol/L 0.50-2.00 Serum or plasma lithium measurement (mol es/volume) - 05/16/19 16:50 BNP PT 41.1 pg/mL <100.0 Whole blood hemoglobin and hematocrit [facility] - 05/16/19 18:05 Venous blood hemoglobin measurement (mass/volume) 8.0 g/dL 11.5-16.0 Blood hematocrit (volume fraction) 26 % 35-52 Capillary blood glucose measurement by g lucometer (mass/volume) - 05/16/19 20:29 Capillary blood glucose measurement by glucometer (mas s/volume) 349 mg/dL 70-110 Whole blood hemoglobin and hematocrit [facility] - 05/17/19 00:47 Venous blood hemoglobin measurement (mass/volume) 7.0 g/dL 11.5-16.0 Blood hematocrit (volume fraction) 22 % 35-52 Comprehensive metabolic panel - 05/17/19 03:09 Serum or plasma sodium measurement (moles/volume) 136 mmol/L 135-145 Serum or plasma potassium measurement (moles/volume) 4.0 mmol/L 3.6-5.0 Serum or plasma chloride measurement (moles/volume) 90 mmol/L 98-107 Carbon dioxide 33 mmol/L 21-32 Serum or plasma anion gap determination (moles/volume) 13 mmol/L 5-14 Serum or plasma urea nitrogen measurement (mass/volume ) 45 mg/dL 7-18 Serum or plasma creatinine measurement (mass/volume) 0.88 mg/dL 0.60-1.30 Serum or plasma urea nitrogen/creatinine mass ratio 51 NRG Serum or plasma creatinine measurement w ith calculation of estimated glomerular filtration rate > NRG Serum or plasma glucose measurement (mass/volume) 239 mg/dL 70-105 Serum or plasma calcium measurement (mass/volume) 7.4 mg/dL 8.5-10.1 Serum or plasma total bilirubin measurement (mass/volu me) 0.4 mg/dL 0.1-1.0 Serum or plasma alkaline phosphatase gil surement (enzymatic activity/volume) 50 U/L 40-136 Serum or plasma aspartate aminotransfera se measurement (enzymatic activity/volume) 8 U/L 5-34 Serum or plasma alanine aminotransferase measurement (enzymatic activity/volume) 15 U/L 0-55 Serum or plasma protein measurement (mass/volume) 4.6 g/dL 6.4-8.2 Serum or plasma albumin measurement (mass/volume) 3.1 g/dL 3.2-4.5 CALCIUM CORRECTED 8.1 mg/dL 8.5-10.1 Serum or plasma phosphate measurement (m ass/volume) - 05/17/19 03:09 Serum or plasma phosphate measurement (mass/volume) 4.8 mg/dL 2.3-4.7 Magnesium - 05/17/19 03:09 Magnesium 2.1 mg/dL 1.6-2.4 Serum or plasma triglyceride measurement (mass/volume) - 05/17/19 03:09 Serum or plasma triglyceride measurement (mass/volume) 117 mg/dL <150 PT panel in platelet poor plasma by coag ulation assay - 05/17/19 03:09 Prothrombin time (PT) in platelet poor plasma by coagu lation assay 13.6 s 12.2-14.7 INR in platelet poor plasma or blood by coagulation as say 1.0 0.8-1.4 Activated partial thromboplastin time (a PTT) in platelet poor plasma bycoagulation assay - 05/17/19 03:09 Activated partial thromboplastin time (a PTT) in platelet poor plasma bycoagulation assay < s 24-35 Complete blood count (CBC) with automate d white blood cell (WBC) differential - 05/17/19 03:47 Blood leukocytes automated count (number/volume) 22.3 10*3/uL 4.3-11.0 Blood erythrocytes automated count (number/volume) 2.36 10*6/uL 4.35-5.85 Venous blood hemoglobin measurement (mass/volume) 6.6 g/dL 11.5-16.0 Blood hematocrit (volume fraction) 22 % 35-52 Automated erythrocyte mean corpuscular volume 91 [ foz_us] 80-99 Automated erythrocyte mean corpuscular h emoglobin (mass per erythrocyte) 28 pg 25-34 Automated erythrocyte mean corpuscular h emoglobin concentration measurement (mass/volume) 31 g/dL 32-36 Automated erythrocyte distribution width ratio 15. 0 % 10.0- 14.5 Automated blood platelet count (count/volume) 224 10*3/uL 130-400 Automated blood platelet mean volume measurement 10.5 [foz_us] 7.4-10.4 Automated blood neutrophils/100 leukocytes 87 % 42-75 Automated blood lymphocytes/100 leukocytes 7 % 12-44 Blood monocytes/100 leukocytes 6 % 0-12 Automated blood eosinophils/100 leukocytes 0 % 0-10 Automated blood basophils/100 leukocytes 0 % 0-10 Blood neutrophils automated count (number/volume) 19.3 10*3 1.8-7.8 Blood lymphocytes automated count (number/volume) 1.6 10*3 1.0-4.0 Blood monocytes automated count (number/volume) 1. 4 10*3 0.0-1.0 Automated eosinophil count 0.0 10*3/uL 0 .0-0.3 Automated blood basophil count (count/volume) 0.0 10*3/uL 0.0-0.1 RED CELLS LEUKO REDUCED AS1 - 05/17/19 0 5:16 RED CELLS LEUKO REDUCED AS1 T RANSFUSED 05/20/19 0058 NRG Blood type T Indirect antibody screen pa adeel - 05/17/19 05:16 WRISTBAND NUMBER [id number] NRG ABO+Rh group AP NRG Blood group antibody screen NEGATIVE NR G Capillary blood glucose measurement by g lucometer (mass/volume) - 05/17/19 11:13 Capillary blood glucose measurement by glucometer (mas s/volume) 284 mg/dL 70-110 Capillary blood glucose measurement by g lucometer (mass/volume) - 05/17/19 15:30 Capillary blood glucose measurement by glucometer (mas s/volume) 384 mg/dL 70-110 Whole blood hemoglobin and hematocrit pa adeel - 05/17/19 19:58 Venous blood hemoglobin measurement (mass/volume) 7.3 g/dL 11.5-16.0 Blood hematocrit (volume fraction) 23 % 35-52 Capillary blood glucose measurement by g lucometer (mass/volume) - 05/17/19 20:34 Capillary blood glucose measurement by glucometer (mas s/volume) 398 mg/dL 70-110 Complete blood count (CBC) with automate d white blood cell (WBC) differential - 05/18/19 03:30 Blood leukocytes automated count (number/volume) 19.4 10*3/uL 4.3-11.0 Blood erythrocytes automated count (number/volume) 2.57 10*6/uL 4.35-5.85 Venous blood hemoglobin measurement (mass/volume) 7.2 g/dL 11.5-16.0 Blood hematocrit (volume fraction) 23 % 35-52 Automated erythrocyte mean corpuscular volume 88 [ foz_us] 80-99 Automated erythrocyte mean corpuscular h emoglobin (mass per erythrocyte) 28 pg 25-34 Automated erythrocyte mean corpuscular h emoglobin concentration measurement (mass/volume) 32 g/dL 32-36 Automated erythrocyte distribution width ratio 16. 4 % 10.0- 14.5 Automated blood platelet count (count/volume) 202 10*3/uL 130-400 Automated blood platelet mean volume measurement 9.8 [foz_us] 7.4-10.4 Automated blood neutrophils/100 leukocytes 87 % 42-75 Automated blood lymphocytes/100 leukocytes 6 % 12-44 Blood monocytes/100 leukocytes 7 % 0-12 Automated blood eosinophils/100 leukocytes 0 % 0-10 Automated blood basophils/100 leukocytes 0 % 0-10 Blood neutrophils automated count (number/volume) 16.8 10*3 1.8-7.8 Blood lymphocytes automated count (number/volume) 1.2 10*3 1.0-4.0 Blood monocytes automated count (number/volume) 1. 3 10*3 0.0-1.0 Automated eosinophil count 0.0 10*3/uL 0 .0-0.3 Automated blood basophil count (count/volume) 0.1 10*3/uL 0.0-0.1 Comprehensive metabolic panel - 05/18/19 03:30 Serum or plasma sodium measurement (moles/volume) 137 mmol/L 135-145 Serum or plasma potassium measurement (moles/volume) 4.3 mmol/L 3.6-5.0 Serum or plasma chloride measurement (moles/volume) 94 mmol/L 98-107 Carbon dioxide 32 mmol/L 21-32 Serum or plasma anion gap determination (moles/volume) 11 mmol/L 5-14 Serum or plasma urea nitrogen measurement (mass/volume ) 36 mg/dL 7-18 Serum or plasma creatinine measurement (mass/volume) 0.89 mg/dL 0.60-1.30 Serum or plasma urea nitrogen/creatinine mass ratio 40 NRG Serum or plasma creatinine measurement w ith calculation of estimated glomerular filtration rate > NRG Serum or plasma glucose measurement (mass/volume) 289 mg/dL 70-105 Serum or plasma calcium measurement (mass/volume) 7.1 mg/dL 8.5-10.1 Serum or plasma total bilirubin measurement (mass/volu me) 0.5 mg/dL 0.1-1.0 Serum or plasma alkaline phosphatase gil surement (enzymatic activity/volume) 45 U/L 40-136 Serum or plasma aspartate aminotransfera se measurement (enzymatic activity/volume) 8 U/L 5-34 Serum or plasma alanine aminotransferase measurement (enzymatic activity/volume) 13 U/L 0-55 Serum or plasma protein measurement (mass/volume) 4.4 g/dL 6.4-8.2 Serum or plasma albumin measurement (mass/volume) 3.0 g/dL 3.2-4.5 CALCIUM CORRECTED 7.9 mg/dL 8.5-10.1 Serum or plasma phosphate measurement (m ass/volume) - 05/18/19 03:30 Serum or plasma phosphate measurement (mass/volume) 4.4 mg/dL 2.3-4.7 Magnesium - 05/18/19 03:30 Magnesium 2.1 mg/dL 1.6-2.4 [id number] - 05/18/19 03:30 [id number] 0.44 ng/mL 0.80-2.00 Capillary blood glucose measurement by g lucometer (mass/volume) - 05/18/19 11:09 Capillary blood glucose measurement by glucometer (mas s/volume) 252 mg/dL 70-110 Whole blood hemoglobin and hematocrit [facility] 05/18/19 11:42 Venous blood hemoglobin measurement (mass/volume) 7.3 g/dL 11.5-16.0 Blood hematocrit (volume fraction) 23 % 35-52 Capillary blood glucose measurement by g lucometer (mass/volume) - 05/18/19 16:03 Capillary blood glucose measurement by glucometer (mas s/volume) 290 mg/dL 70-110 Whole blood hemoglobin and hematocrit [facility] 05/18/19 18:00 Venous blood hemoglobin measurement (mass/volume) 7.2 g/dL 11.5-16.0 Blood hematocrit (volume fraction) 23 % 35-52 Capillary blood glucose measurement by g lucometer (mass/volume) - 05/18/19 20:44 Capillary blood glucose measurement by glucometer (mas s/volume) 210 mg/dL 70-110 Whole blood hemoglobin and hematocrit [facility] 05/19/19 00:01 Venous blood hemoglobin measurement (mass/volume) 6.2 g/dL 11.5-16.0 Blood hematocrit (volume fraction) 20 % 35-52 Complete blood count (CBC) with automate d white blood cell (WBC) differential - 05/19/19 04:15 Blood leukocytes automated count (number/volume) 14.6 10*3/uL 4.3-11.0 Blood erythrocytes automated count (number/volume) 2.49 10*6/uL 4.35-5.85 Venous blood hemoglobin measurement (mass/volume) 7.2 g/dL 11.5-16.0 Blood hematocrit (volume fraction) 23 % 35-52 Automated erythrocyte mean corpuscular volume 92 [ foz_us] 80-99 Automated erythrocyte mean corpuscular h emoglobin (mass per erythrocyte) 29 pg 25-34 Automated erythrocyte mean corpuscular h emoglobin concentration measurement (mass/volume) 31 g/dL 32-36 Automated erythrocyte distribution width ratio 16. 0 % 10.0- 14.5 Automated blood platelet count (count/volume) 170 10*3/uL 130-400 Automated blood platelet mean volume measurement 9.6 [foz_us] 7.4-10.4 Automated blood neutrophils/100 leukocytes 75 % 42-75 Automated blood lymphocytes/100 leukocytes 15 % 12-44 Blood monocytes/100 leukocytes 9 % 0-12 Automated blood eosinophils/100 leukocytes 1 % 0-10 Automated blood basophils/100 leukocytes 0 % 0-10 Blood neutrophils automated count (number/volume) 10.9 10*3 1.8-7.8 Blood lymphocytes automated count (number/volume) 2.2 10*3 1.0-4.0 Blood monocytes automated count (number/volume) 1. 3 10*3 0.0-1.0 Automated eosinophil count 0.1 10*3/uL 0 .0-0.3 Automated blood basophil count (count/volume) 0.0 10*3/uL 0.0-0.1 Comprehensive metabolic panel - 05/19/19 04:15 Serum or plasma sodium measurement (moles/volume) 139 mmol/L 135-145 Serum or plasma potassium measurement (moles/volume) 3.4 mmol/L 3.6-5.0 Serum or plasma chloride measurement (moles/volume) 98 mmol/L 98-107 Carbon dioxide 32 mmol/L 21-32 Serum or plasma anion gap determination (moles/volume) 9 mmol/L 5-14 Serum or plasma urea nitrogen measurement (mass/volume ) 30 mg/dL 7-18 Serum or plasma creatinine measurement (mass/volume) 0.66 mg/dL 0.60-1.30 Serum or plasma urea nitrogen/creatinine mass ratio 45 NRG Serum or plasma creatinine measurement w ith calculation of estimated glomerular filtration rate > NRG Serum or plasma glucose measurement (mass/volume) 185 mg/dL 70-105 Serum or plasma calcium measurement (mass/volume) 6.8 mg/dL 8.5-10.1 Serum or plasma total bilirubin measurement (mass/volu me) 0.8 mg/dL 0.1-1.0 Serum or plasma alkaline phosphatase gil surement (enzymatic activity/volume) 43 U/L 40-136 Serum or plasma aspartate aminotransfera se measurement (enzymatic activity/volume) 13 U/L 5-34 Serum or plasma alanine aminotransferase measurement (enzymatic activity/volume) 15 U/L 0-55 Serum or plasma protein measurement (mass/volume) 4.3 g/dL 6.4-8.2 Serum or plasma albumin measurement (mass/volume) 3.0 g/dL 3.2-4.5 CALCIUM CORRECTED 7.6 mg/dL 8.5-10.1 Serum or plasma phosphate measurement (m ass/volume) - 05/19/19 04:15 Serum or plasma phosphate measurement (mass/volume) 3.6 mg/dL 2.3-4.7 Magnesium - 05/19/19 04:15 Magnesium 1.8 mg/dL 1.6-2.4 Serum or plasma triglyceride measurement (mass/volume) - 05/19/19 04:15 Serum or plasma triglyceride measurement (mass/volume) 69 mg/dL <150 Capillary blood glucose measurement by g lucometer (mass/volume) - 05/19/19 11:05 Capillary blood glucose measurement by glucometer (mas s/volume) 261 mg/dL 70-110 Whole blood hemoglobin and hematocrit [facility] - 05/19/19 14:20 Venous blood hemoglobin measurement (mass/volume) 7.5 g/dL 11.5-16.0 Blood hematocrit (volume fraction) 24 % 35-52 Capillary blood glucose measurement by g lucometer (mass/volume) - 05/19/19 15:44 Capillary blood glucose measurement by glucometer (mas s/volume) 212 mg/dL 70-110 Capillary blood glucose measurement by g lucometer (mass/volume) - 05/19/19 20:10 Capillary blood glucose measurement by glucometer (mas s/volume) 219 mg/dL 70-110 Whole blood hemoglobin and hematocrit [facility] - 05/19/19 23:41 Venous blood hemoglobin measurement (mass/volume) 6.3 g/dL 11.5-16.0 Blood hematocrit (volume fraction) 21 % 35-52 Complete blood count (CBC) with automate d white blood cell (WBC) differential - 05/20/19 03:51 Blood leukocytes automated count (number/volume) 14.0 10*3/uL 4.3-11.0 Blood erythrocytes automated count (number/volume) 2.71 10*6/uL 4.35-5.85 Venous blood hemoglobin measurement (mass/volume) 7.8 g/dL 11.5-16.0 Blood hematocrit (volume fraction) 26 % 35-52 Automated erythrocyte mean corpuscular volume 94 [ foz_us] 80-99 Automated erythrocyte mean corpuscular h emoglobin (mass per erythrocyte) 29 pg 25-34 Automated erythrocyte mean corpuscular h emoglobin concentration measurement (mass/volume) 31 g/dL 32-36 Automated erythrocyte distribution width ratio 17. 1 % 10.0- 14.5 Automated blood platelet count (count/volume) 146 10*3/uL 130-400 Automated blood platelet mean volume measurement 9.2 [foz_us] 7.4-10.4 Automated blood neutrophils/100 leukocytes 76 % 42-75 Automated blood lymphocytes/100 leukocytes 14 % 12-44 Blood monocytes/100 leukocytes 8 % 0-12 Automated blood eosinophils/100 leukocytes 2 % 0-10 Automated blood basophils/100 leukocytes 0 % 0-10 Blood neutrophils automated count (number/volume) 10.7 10*3 1.8-7.8 Blood lymphocytes automated count (number/volume) 2.0 10*3 1.0-4.0 Blood monocytes automated count (number/volume) 1. 1 10*3 0.0-1.0 Automated eosinophil count 0.2 10*3/uL 0 .0-0.3 Automated blood basophil count (count/volume) 0.0 10*3/uL 0.0-0.1 Comprehensive metabolic panel - 05/20/19 03:51 Serum or plasma sodium measurement (moles/volume) 140 mmol/L 135-145 Serum or plasma potassium measurement (moles/volume) 3.5 mmol/L 3.6-5.0 Serum or plasma chloride measurement (moles/volume) 100 mmol/L 98-107 Carbon dioxide 28 mmol/L 21-32 Serum or plasma anion gap determination (moles/volume) 12 mmol/L 5-14 Serum or plasma urea nitrogen measurement (mass/volume ) 23 mg/dL 7-18 Serum or plasma creatinine measurement (mass/volume) 0.66 mg/dL 0.60-1.30 Serum or plasma urea nitrogen/creatinine mass ratio 35 NRG Serum or plasma creatinine measurement w ith calculation of estimated glomerular filtration rate > NRG Serum or plasma glucose measurement (mass/volume) 170 mg/dL 70-105 Serum or plasma calcium measurement (mass/volume) 6.8 mg/dL 8.5-10.1 Serum or plasma total bilirubin measurement (mass/volu me) 0.8 mg/dL 0.1-1.0 Serum or plasma alkaline phosphatase gil surement (enzymatic activity/volume) 47 U/L 40-136 Serum or plasma aspartate aminotransfera se measurement (enzymatic activity/volume) 12 U/L 5-34 Serum or plasma alanine aminotransferase measurement (enzymatic activity/volume) 15 U/L 0-55 Serum or plasma protein measurement (mass/volume) 4.4 g/dL 6.4-8.2 Serum or plasma albumin measurement (mass/volume) 2.9 g/dL 3.2-4.5 CALCIUM CORRECTED 7.7 mg/dL 8.5-10.1 Serum or plasma phosphate measurement (m ass/volume) - 05/20/19 03:51 Serum or plasma phosphate measurement (mass/volume) 3.1 mg/dL 2.3-4.7 Magnesium - 05/20/19 03:51 Magnesium 1.7 mg/dL 1.6-2.4 Whole blood hemoglobin and hematocrit [facility] - 05/20/19 05:43 Venous blood hemoglobin measurement (mass/volume) 7.8 g/dL 11.5-16.0 Blood hematocrit (volume fraction) 25 % 35-52 Capillary blood glucose measurement by g lucometer (mass/volume) - 05/20/19 11:28 Capillary blood glucose measurement by glucometer (mas s/volume) 161 mg/dL 70-110 Capillary blood glucose measurement by g lucometer (mass/volume) - 05/20/19 15:45 Capillary blood glucose measurement by glucometer (mas s/volume) 190 mg/dL 70-110 Whole blood hemoglobin and hematocrit [facility] - 05/20/19 18:00 Venous blood hemoglobin measurement (mass/volume) 8.5 g/dL 11.5-16.0 Blood hematocrit (volume fraction) 28 % 35-52 Capillary blood glucose measurement by g lucometer (mass/volume) - 05/20/19 19:56 Capillary blood glucose measurement by glucometer (mas s/volume) 269 mg/dL 70-110 Complete blood count (CBC) with automate d white blood cell (WBC) differential - 05/21/19 03:30 Blood leukocytes automated count (number/volume) 13.2 10*3/uL 4.3-11.0 Blood erythrocytes automated count (number/volume) 2.82 10*6/uL 4.35-5.85 Venous blood hemoglobin measurement (mass/volume) 8.2 g/dL 11.5-16.0 Blood hematocrit (volume fraction) 27 % 35-52 Automated erythrocyte mean corpuscular volume 96 [ foz_us] 80-99 Automated erythrocyte mean corpuscular h emoglobin (mass per erythrocyte) 29 pg 25-34 Automated erythrocyte mean corpuscular h emoglobin concentration measurement (mass/volume) 30 g/dL 32-36 Automated erythrocyte distribution width ratio 17. 8 % 10.0- 14.5 Automated blood platelet count (count/volume) 147 10*3/uL 130-400 Automated blood platelet mean volume measurement 9.9 [foz_us] 7.4-10.4 Automated blood neutrophils/100 leukocytes 77 % 42-75 Automated blood lymphocytes/100 leukocytes 14 % 12-44 Blood monocytes/100 leukocytes 6 % 0-12 Automated blood eosinophils/100 leukocytes 2 % 0-10 Automated blood basophils/100 leukocytes 0 % 0-10 Blood neutrophils automated count (number/volume) 10.2 10*3 1.8-7.8 Blood lymphocytes automated count (number/volume) 1.8 10*3 1.0-4.0 Blood monocytes automated count (number/volume) 0. 9 10*3 0.0-1.0 Automated eosinophil count 0.3 10*3/uL 0 .0-0.3 Automated blood basophil count (count/volume) 0.0 10*3/uL 0.0-0.1 Whole blood basic metabolic panel - 05/01 07/19 03:30 Serum or plasma sodium measurement (moles/volume) 141 mmol/L 135-145 Serum or plasma potassium measurement (moles/volume) 3.8 mmol/L 3.6-5.0 Serum or plasma chloride measurement (moles/volume) 100 mmol/L 98-107 Carbon dioxide 30 mmol/L 21-32 Serum or plasma anion gap determination (moles/volume) 11 mmol/L 5-14 Serum or plasma urea nitrogen measurement (mass/volume ) 20 mg/dL 7-18 Serum or plasma creatinine measurement (mass/volume) 0.65 mg/dL 0.60-1.30 Serum or plasma urea nitrogen/creatinine mass ratio 31 NRG Serum or plasma creatinine measurement w ith calculation of estimated glomerular filtration rate > NRG Serum or plasma glucose measurement (mass/volume) 158 mg/dL 70-105 Serum or plasma calcium measurement (mass/volume) 7.3 mg/dL 8.5-10.1 Serum or plasma phosphate measurement (m ass/volume) - 05/21/19 03:30 Serum or plasma phosphate measurement (mass/volume) 3.1 mg/dL 2.3-4.7 Magnesium - 05/21/19 03:30 Magnesium 1.8 mg/dL 1.6-2.4 Capillary blood glucose measurement by g lucometer (mass/volume) - 05/21/19 05:31 Capillary blood glucose measurement by glucometer (mas s/volume) 162 mg/dL 70-110 Capillary blood glucose measurement by g lucometer (mass/volume) - 05/21/19 11:14 Capillary blood glucose measurement by glucometer (mas s/volume) 227 mg/dL 70-110 Capillary blood glucose measurement by g lucometer (mass/volume) - 05/21/19 16:05 Capillary blood glucose measurement by glucometer (mas s/volume) 160 mg/dL 70-110 Capillary blood glucose measurement by g lucometer (mass/volume) - 05/21/19 20:21 Capillary blood glucose measurement by glucometer (mas s/volume) 271 mg/dL 70-110 Complete blood count (CBC) with automate d white blood cell (WBC) differential - 05/22/19 05:05 Blood leukocytes automated count (number/volume) 11.5 10*3/uL 4.3-11.0 Blood erythrocytes automated count (number/volume) 2.76 10*6/uL 4.35-5.85 Venous blood hemoglobin measurement (mass/volume) 7.9 g/dL 11.5-16.0 Blood hematocrit (volume fraction) 27 % 35-52 Automated erythrocyte mean corpuscular volume 98 [ foz_us] 80-99 Automated erythrocyte mean corpuscular h emoglobin (mass per erythrocyte) 29 pg 25-34 Automated erythrocyte mean corpuscular h emoglobin concentration measurement (mass/volume) 29 g/dL 32-36 Automated erythrocyte distribution width ratio 17. 9 % 10.0- 14.5 Automated blood platelet count (count/volume) 129 10*3/uL 130-400 Automated blood platelet mean volume measurement 9.4 [foz_us] 7.4-10.4 Automated blood neutrophils/100 leukocytes 79 % 42-75 Automated blood lymphocytes/100 leukocytes 13 % 12-44 Blood monocytes/100 leukocytes 6 % 0-12 Automated blood eosinophils/100 leukocytes 2 % 0-10 Automated blood basophils/100 leukocytes 0 % 0-10 Blood neutrophils automated count (number/volume) 9.1 10*3 1.8-7.8 Blood lymphocytes automated count (number/volume) 1.5 10*3 1.0-4.0 Blood monocytes automated count (number/volume) 0. 7 10*3 0.0-1.0 Automated eosinophil count 0.2 10*3/uL 0 .0-0.3 Automated blood basophil count (count/volume) 0.0 10*3/uL 0.0-0.1 Comprehensive metabolic panel - 05/22/19 05:05 Serum or plasma sodium measurement (moles/volume) 139 mmol/L 135-145 Serum or plasma potassium measurement (moles/volume) 4.0 mmol/L 3.6-5.0 Serum or plasma chloride measurement (moles/volume) 98 mmol/L 98-107 Carbon dioxide 31 mmol/L 21-32 Serum or plasma anion gap determination (moles/volume) 10 mmol/L 5-14 Serum or plasma urea nitrogen measurement (mass/volume ) 20 mg/dL 7-18 Serum or plasma creatinine measurement (mass/volume) 0.66 mg/dL 0.60-1.30 Serum or plasma urea nitrogen/creatinine mass ratio 30 NRG Serum or plasma creatinine measurement w ith calculation of estimated glomerular filtration rate > NRG Serum or plasma glucose measurement (mass/volume) 154 mg/dL 70-105 Serum or plasma calcium measurement (mass/volume) 7.5 mg/dL 8.5-10.1 Serum or plasma total bilirubin measurement (mass/volu me) 0.7 mg/dL 0.1-1.0 Serum or plasma alkaline phosphatase gil surement (enzymatic activity/volume) 63 U/L 40-136 Serum or plasma aspartate aminotransfera se measurement (enzymatic activity/volume) 16 U/L 5-34 Serum or plasma alanine aminotransferase measurement (enzymatic activity/volume) 18 U/L 0-55 Serum or plasma protein measurement (mass/volume) 4.9 g/dL 6.4-8.2 Serum or plasma albumin measurement (mass/volume) 3.1 g/dL 3.2-4.5 CALCIUM CORRECTED 8.2 mg/dL 8.5-10.1 Capillary blood glucose measurement by g lucometer (mass/volume) - 05/22/19 11:42 Capillary blood glucose measurement by glucometer (mas s/volume) 252 mg/dL 70-110 Capillary blood glucose measurement by g lucometer (mass/volume) - 05/22/19 16:12 Capillary blood glucose measurement by glucometer (mas s/volume) 152 mg/dL 70-110 Whole blood hemoglobin and hematocrit [facility] - 05/22/19 18:45 Venous blood hemoglobin measurement (mass/volume) 8.7 g/dL 11.5-16.0 Blood hematocrit (volume fraction) 29 % 35-52 Capillary blood glucose measurement by g lucometer (mass/volume) - 05/22/19 21:05 Capillary blood glucose measurement by glucometer (mas s/volume) 213 mg/dL 70-110 Capillary blood glucose measurement by g lucometer (mass/volume) - 05/23/19 05:03 Capillary blood glucose measurement by glucometer (mas s/volume) 141 mg/dL 70-110 Complete blood count (CBC) with automate d white blood cell (WBC) differential - 05/23/19 05:18 Blood leukocytes automated count (number/volume) 9.7 10*3/uL 4.3-11.0 Blood erythrocytes automated count (number/volume) 2.73 10*6/uL 4.35-5.85 Venous blood hemoglobin measurement (mass/volume) 8.0 g/dL 11.5-16.0 Blood hematocrit (volume fraction) 27 % 35-52 Automated erythrocyte mean corpuscular volume 98 [ foz_us] 80-99 Automated erythrocyte mean corpuscular h emoglobin (mass per erythrocyte) 29 pg 25-34 Automated erythrocyte mean corpuscular h emoglobin concentration measurement (mass/volume) 30 g/dL 32-36 Automated erythrocyte distribution width ratio 17. 9 % 10.0- 14.5 Automated blood platelet count (count/volume) 113 10*3/uL 130-400 Automated blood platelet mean volume measurement 10.2 [foz_us] 7.4-10.4 Automated blood neutrophils/100 leukocytes 80 % 42-75 Automated blood lymphocytes/100 leukocytes 11 % 12-44 Blood monocytes/100 leukocytes 7 % 0-12 Automated blood eosinophils/100 leukocytes 2 % 0-10 Automated blood basophils/100 leukocytes 0 % 0-10 Blood neutrophils automated count (number/volume) 7.8 10*3 1.8-7.8 Blood lymphocytes automated count (number/volume) 1.1 10*3 1.0-4.0 Blood monocytes automated count (number/volume) 0. 6 10*3 0.0-1.0 Automated eosinophil count 0.2 10*3/uL 0 .0-0.3 Automated blood basophil count (count/volume) 0.0 10*3/uL 0.0-0.1 Whole blood basic metabolic panel - 05/01 09/16 05:18 Serum or plasma sodium measurement (moles/volume) 139 mmol/L 135-145 Serum or plasma potassium measurement (moles/volume) 4.1 mmol/L 3.6-5.0 Serum or plasma chloride measurement (moles/volume) 96 mmol/L 98-107 Carbon dioxide 33 mmol/L 21-32 Serum or plasma anion gap determination (moles/volume) 10 mmol/L 5-14 Serum or plasma urea nitrogen measurement (mass/volume ) 17 mg/dL 7-18 Serum or plasma creatinine measurement (mass/volume) 0.55 mg/dL 0.60-1.30 Serum or plasma urea nitrogen/creatinine mass ratio 31 NRG Serum or plasma creatinine measurement w ith calculation of estimated glomerular filtration rate > NRG Serum or plasma glucose measurement (mass/volume) 133 mg/dL 70-105 Serum or plasma calcium measurement (mass/volume) 7.7 mg/dL 8.5-10.1 Capillary blood glucose measurement by g lucometer (mass/volume) - 05/23/19 11:23 Capillary blood glucose measurement by glucometer (mas s/volume) 149 mg/dL 70-110 Capillary blood glucose measurement by g lucometer (mass/volume) - 05/23/19 15:58 Capillary blood glucose measurement by glucometer (mas s/volume) 236 mg/dL 70-110 Whole blood hemoglobin and hematocrit [facility] - 05/23/19 18:00 Venous blood hemoglobin measurement (mass/volume) 9.2 g/dL 11.5-16.0 Blood hematocrit (volume fraction) 31 % 35-52 Capillary blood glucose measurement by g lucometer (mass/volume) - 05/23/19 20:27 Capillary blood glucose measurement by glucometer (mas s/volume) 181 mg/dL 70-110 Whole blood hemoglobin and hematocrit [facility] 05/24/19 05:40 Venous blood hemoglobin measurement (mass/volume) 8.9 g/dL 11.5-16.0 Blood hematocrit (volume fraction) 29 % 35-52 Whole blood basic metabolic panel - 05/01 10/16 05:40 Serum or plasma sodium measurement (moles/volume) 138 mmol/L 135-145 Serum or plasma potassium measurement (moles/volume) 4.3 mmol/L 3.6-5.0 Serum or plasma chloride measurement (moles/volume) 94 mmol/L 98-107 Carbon dioxide 33 mmol/L 21-32 Serum or plasma anion gap determination (moles/volume) 11 mmol/L 5-14 Serum or plasma urea nitrogen measurement (mass/volume ) 23 mg/dL 7-18 Serum or plasma creatinine measurement (mass/volume) 0.64 mg/dL 0.60-1.30 Serum or plasma urea nitrogen/creatinine mass ratio 36 NRG Serum or plasma creatinine measurement w ith calculation of estimated glomerular filtration rate > NRG Serum or plasma glucose measurement (mass/volume) 149 mg/dL 70-105 Serum or plasma calcium measurement (mass/volume) 8.2 mg/dL 8.5-10.1 Magnesium - 05/24/19 05:40 Magnesium 1.9 mg/dL 1.6-2.4 Capillary blood glucose measurement by g lucometer (mass/volume) - 05/24/19 10:33 Capillary blood glucose measurement by glucometer (mas s/volume) 216 mg/dL 70-110 Capillary blood glucose measurement by g lucometer (mass/volume) - 05/24/19 16:02 Capillary blood glucose measurement by glucometer (mas s/volume) 196 mg/dL 70-110 Capillary blood glucose measurement by g lucometer (mass/volume) - 05/24/19 21:03 Capillary blood glucose measurement by glucometer (mas s/volume) 221 mg/dL 70-110 Whole blood hemoglobin and hematocrit [facility] - 05/24/19 22:02 Venous blood hemoglobin measurement (mass/volume) 8.1 g/dL 11.5-16.0 Blood hematocrit (volume fraction) 27 % 35-52 Capillary blood glucose measurement by g lucometer (mass/volume) - 05/25/19 05:26 Capillary blood glucose measurement by glucometer (mas s/volume) 214 mg/dL 70-110 Whole blood hemoglobin and hematocrit [facility] - 05/25/19 05:29 Venous blood hemoglobin measurement (mass/volume) 8.5 g/dL 11.5-16.0 Blood hematocrit (volume fraction) 29 % 35-52 Whole blood basic metabolic panel - 05/01 11/16 05:29 Serum or plasma sodium measurement (moles/volume) 140 mmol/L 135-145 Serum or plasma potassium measurement (moles/volume) 4.6 mmol/L 3.6-5.0 Serum or plasma chloride measurement (moles/volume) 97 mmol/L 98-107 Carbon dioxide 30 mmol/L 21-32 Serum or plasma anion gap determination (moles/volume) 13 mmol/L 5-14 Serum or plasma urea nitrogen measurement (mass/volume ) 21 mg/dL 7-18 Serum or plasma creatinine measurement (mass/volume) 0.65 mg/dL 0.60-1.30 Serum or plasma urea nitrogen/creatinine mass ratio 32 NRG Serum or plasma creatinine measurement w ith calculation of estimated glomerular filtration rate > NRG Serum or plasma glucose measurement (mass/volume) 187 mg/dL 70-105 Serum or plasma calcium measurement (mass/volume) 8.1 mg/dL 8.5-10.1 Capillary blood glucose measurement by g lucometer (mass/volume) - 05/25/19 11:22 Capillary blood glucose measurement by glucometer (mas s/volume) 166 mg/dL 70-110 Capillary blood glucose measurement by g lucometer (mass/volume) - 05/25/19 15:45 Capillary blood glucose measurement by glucometer (mas s/volume) 155 mg/dL 70-110 Capillary blood glucose measurement by g lucometer (mass/volume) - 05/25/19 20:40 Capillary blood glucose measurement by glucometer (mas s/volume) 254 mg/dL 70-110 Automated blood complete blood count (he mogram) panel - 05/26/19 05:55 Blood leukocytes automated count (number/volume) 7.0 10*3/uL 4.3-11.0 Blood erythrocytes automated count (number/volume) 2.93 10*6/uL 4.35-5.85 Venous blood hemoglobin measurement (mass/volume) 8.7 g/dL 11.5-16.0 Blood hematocrit (volume fraction) 29 % 35-52 Automated erythrocyte mean corpuscular volume 99 [ foz_us] 80-99 Automated erythrocyte mean corpuscular h emoglobin (mass per erythrocyte) 30 pg 25-34 Automated erythrocyte mean corpuscular h emoglobin concentration measurement (mass/volume) 30 g/dL 32-36 Automated erythrocyte distribution width ratio 18. 4 % 10.0- 14.5 Automated blood platelet count (count/volume) 109 10*3/uL 130-400 Automated blood platelet mean volume measurement 10.0 [foz_us] 7.4-10.4 Capillary blood glucose measurement by g lucometer (mass/volume) - 05/26/19 05:56 Capillary blood glucose measurement by glucometer (mas s/volume) 183 mg/dL 70-110 Capillary blood glucose measurement by g lucometer (mass/volume) - 05/26/19 11:02 Capillary blood glucose measurement by glucometer (mas s/volume) 205 mg/dL 70-110 Capillary blood glucose measurement by g lucometer (mass/volume) - 05/26/19 12:38 Capillary blood glucose measurement by glucometer (mas s/volume) 152 mg/dL 70-110 Encounters ACCT No. Visit Date/Time Discharge Status Pt. Type Provider Facility Loc./Unit Complaint [id number] 04/21/2019 13:20:00 04/21/2019 23:59: 59 CLS Outpatient JEREMY GANNON [facility] [id number] 05/04/2019 16:08:00 019 13:49:00 DIS Inpatient KULDEEP LYLE, TERI Khoury [facility] 4TH CHF,ACUTE EXACERBATION, EDEMA
--- OUTSIDE RECORDS SUMMARY | 2019-05-30 23:54 | XMS REPORT | Continuity of Care Document ---
Author Organization Unknown Address Unknown Phone Unavailable Allergies Active Description Code Type Severity Reaction Onset Reported/Identified Relationship to Patient Clinical Status Yes bee venom protein (honey bee) [id number] Drug Allergy Unknown N/A 05/04/2019 Medications [...] I95 .9 HYPOTENSION, UNSPECIFIED 05/11/2019 TERI LIGHT MD, Ot J44 .1 CHRONIC [...] MD, Ot D64 .9 ANEMIA, UNSPECIFIED 05/17/2019 TERI LIGHT MD, Ot E66 .2 MORBID [...] Ot R60 .1 GENERALIZED EDEMA 05/17/2019 TERI ILGHT MD Ot Z68.42 BODY MASS INDEX (BMI) [...] Ot I21.A1 MYOCARDIAL INFARCTION TYPE 2 05/22/2019 ETRI LIGHT MD, Ot I48.91 UNSPECIFIED ATRIAL FIBRILLATION [...] Ot Z99.81 DEPENDENCE ON SUPPLEMENTAL OXYGEN 05/25/2019 KULDEEPTERI INGRAM MD, Ot D64 .9 ANEMIA, UNSPECIFIED 05/25/2019 TERI LIGHT MD, Ot E66 .2 MORBID (SEVERE) OBESITY WITH ALVEOLAR HY 05/25/2019 TERI LIGTH MD Ot E78 .5 HYPERLIPIDEMIA, UNSPECIFIED 05/25/2019 [...] pg/mL <100.0 Whole blood hemoglobin and hematocrit [facility] - 05/16/19 18:05 Venous blood hemoglobin measurement (mass/volume) 8.0 g/dL 11.5-16.0 Blood hematocrit (volume fraction) 26 % 35-52 Capillary blood glucose measurement by g lucometer (mass/volume) - 05/16/19 20:29 Capillary blood glucose measurement by glucometer (mas s/volume) 349 mg/dL 70-110 Whole blood hemoglobin and hematocrit [facility] - 05/17/19 00:47 Venous blood hemoglobin measurement [...] pa adeel - 05/17/19 05:16 WRISTBAND NUMBER [id number] NRG ABO+Rh group AP NRG Blood group [...] - 05/18/19 03:30 Magnesium 2.1 mg/dL 1.6-2.4 [id number] - 05/18/19 03:30 [id number] 0.44 ng/mL 0.80-2.00 Capillary blood glucose measurement by g lucometer (mass/volume) - 05/18/19 11:09 Capillary blood glucose measurement by glucometer (mas s/volume) 252 mg/dL 70-110 Whole blood hemoglobin and hematocrit [facility] 05/18/19 11:42 Venous blood hemoglobin measurement (mass/volume) 7.3 g/dL 11.5-16.0 Blood hematocrit (volume fraction) 23 % 35-52 Capillary blood glucose measurement by g lucometer (mass/volume) - 05/18/19 16:03 Capillary blood glucose measurement by glucometer (mas s/volume) 290 mg/dL 70-110 Whole blood hemoglobin and hematocrit [facility] 05/18/19 18:00 Venous blood hemoglobin measurement (mass/volume) 7.2 g/dL 11.5-16.0 Blood hematocrit (volume fraction) 23 % 35-52 Capillary blood glucose measurement by g lucometer (mass/volume) - 05/18/19 20:44 Capillary blood glucose measurement by glucometer (mas s/volume) 210 mg/dL 70-110 Whole blood hemoglobin and hematocrit [facility] 05/19/19 00:01 Venous blood hemoglobin measurement (mass/volume) [...] mg/dL 70-110 Whole blood hemoglobin and hematocrit [facility] - 05/19/19 14:20 Venous blood hemoglobin measurement [...] mg/dL 70-110 Whole blood hemoglobin and hematocrit [facility] - 05/19/19 23:41 Venous blood hemoglobin measurement [...] mg/dL 1.6-2.4 Whole blood hemoglobin and hematocrit [facility] - 05/20/19 05:43 Venous blood hemoglobin measurement [...] mg/dL 70-110 Whole blood hemoglobin and hematocrit [facility] - 05/20/19 18:00 Venous blood hemoglobin measurement [...] mg/dL 70-110 Whole blood hemoglobin and hematocrit [facility] - 05/23/19 18:00 Venous blood hemoglobin measurement (mass/volume) 9.2 g/dL 11.5-16.0 Blood hematocrit (volume fraction) 31 % 35-52 Capillary blood glucose measurement by g lucometer (mass/volume) - 05/23/19 20:27 Capillary blood glucose measurement by glucometer (mas s/volume) 181 mg/dL 70-110 Whole blood hemoglobin and hematocrit [facility] 05/24/19 05:40 Venous blood hemoglobin measurement (mass/volume) [...] 70-110 Whole blood hemoglobin and hematocrit [facility] - 05/24/19 22:02 Venous blood hemoglobin measurement (mass/volume) 8.1 g/dL 11.5-16.0 Blood hematocrit (volume fraction) 27 % 35-52 Capillary blood glucose measurement by g lucometer (mass/volume) - 05/25/19 05:26 Capillary blood glucose measurement by glucometer (mas s/volume) 214 mg/dL 70-110 Whole blood hemoglobin and hematocrit [facility] - 05/25/19 05:29 Venous blood [...] Status Pt. Type Provider Facility Loc./Unit Complaint [id number] 04/21/2019 13:20:00 04/21/2019 23:59: 59 CLS Outpatient JEREMY GANNON [facility] [id number] 05/04/2019 16:08:00 019 13:49:00 DIS Inpatient KULDEEP LYLE, TERI Khoury [facility] 4TH CHF,ACUTE EXACERBATION, EDEMA
== END 2019-05-26 13:49 | DRG 242 ==
LOC: ER 14:40 → 4TH 16:08 → ICU 18:17 → 4TH 05-06 13:10 → CSD 05-09 14:17 → ICU 05-09 18:22 → CSD 05-11 21:26 → 4TH 05-12 16:24 → ICU 05-16 14:00 → 4TH 05-21 08:35
PROVIDERS: ADMIT Internal Medicine; ATTEND Family Medicine
PROC: 5A1935Z Respiratory Ventilation, Less than 24 Consecutive Hours (ICD-10-PCS; 2019-05-04)
PROC: 0JH606Z Insertion of Pacemaker, Dual Chamber into Chest Subcutaneous Tissue and Fascia, Open Approach (ICD-10-PCS; principal; 2019-05-09)
PROC: 02H63JZ Insertion of Pacemaker Lead into Right Atrium, Percutaneous Approach (ICD-10-PCS; 2019-05-09)
PROC: 02HK3JZ Insertion of Pacemaker Lead into Right Ventricle, Percutaneous Approach (ICD-10-PCS; 2019-05-09)
PROC: 0JPT02Z Removal of Monitoring Device from Trunk Subcutaneous Tissue and Fascia, Open Approach (ICD-10-PCS; 2019-05-09)
PROC: 5A1935Z Respiratory Ventilation, Less than 24 Consecutive Hours (ICD-10-PCS; 2019-05-09)
DX: I11.0 Hypertensive heart disease with heart failure (principal); J96.22 Acute and chronic respiratory failure with hypercapnia; I21.A1 Myocardial infarction type 2; J96.21 Acute and chronic respiratory failure with hypoxia; E87.2 Acidosis; J44.1 Chronic obstructive pulmonary disease with (acute) exacerbation; E66.2 Morbid (severe) obesity with alveolar hypoventilation; Z68.42 Body mass index [BMI] 45.0-49.9, adult; I50.23 Acute on chronic systolic (congestive) heart failure; I95.9 Hypotension, unspecified; I48.91 Unspecified atrial fibrillation; D64.9 Anemia, unspecified; E78.5 Hyperlipidemia, unspecified; K21.9 Gastro-esophageal reflux disease without esophagitis; R60.1 Generalized edema; Z99.81 Dependence on supplemental oxygen; Z87.891 Personal history of nicotine dependence; Z96.653 Presence of artificial knee joint, bilateral
CPT/HCPCS: 33249; 33286; 36415; 51702; 71045; 71260; 71275; 74177; 76937; 80048; 80053; 80061; 80162; 80202; 81000; 82805; 82962; 83605; 83735; 83880; 84100; 84443; 84478; 84484; 85007; 85014; 85018; 85025; 85027; 85610; 85730; 86850; 86900; 86901; 86920; 87040; 87070; 87081; 87205; 93005; 93041; 93306; 93641; 94002; 94003; 94640; 94660; 94664; 94760; 94799; 96374